=== PATIENT | male | born 1955 | race Caucasian/White ===

== ENCOUNTER → 2021-09-29 | Outpatient (CLI) | payer OTHER, SELFPAY ==
[2021-09-29 12:48] LABS: ALB/GLOB Ratio 0.7 RATIO (0.9-2.4); AST(SGOT) 16 U/L (15-37); Alanine Aminotransfer ALT/SGPT 25 U/L (16-61); Albumin, Serum 3.5 g/dL (3.2-5.0); Alkaline Phosphatase 90 U/L (45-117); Anion Gap 6 (5-15); BUN 18 mg/dL (7-18); BUN/Creat Ratio 16.7 RATIO (10-20); Calcium,Total 9.1 mg/dL (8.5-10.1); Chloride 104 mmol/L (98-107); Cholesterol 131 mg/dL (200); Creatinine, Serum 1.08 mg/dL (0.70-1.30); EST Glomerular Filtration Rate 73 mL/min (>60); Est Glom Filt Rate - Afr Amer 89 mL/min (>60); Glucose 100 mg/dL (74-106); High Density Lipoprotein 37 mg/dL; Potassium 4.3 mmol/L (3.5-5.1); Protein, Total 8.5 g/dL (6.4-8.2); Sodium Level 135 mmol/L (136-145); Triglycerides 78 mg/dL; Very Low Density Lipoprotein 16 mg/dL (5-40)
[2021-09-29 12:49] LABS: Hemoglobin A1c 5.8 % (3.8-5.6)
[2021-09-30 17:17] LABS: PSA, Free 0.72 ng/mL; PSA, Free % 14.7 % (.); PSA, Total Ultrasensitive 4.9 ng/mL (0.0-4.0)
== END | disposition home or self-care (01) ==
LOC: LAB 10:55
PROVIDERS: PCP Family Medicine; Referring Provider Nurse Practitioner Family; Visit Provider Nurse Practitioner Family
DX: R97.20 Elevated prostate specific antigen [PSA] (principal); Z13.220 Encounter for screening for lipoid disorders; Z13.1 Encounter for screening for diabetes mellitus; R51.9 Headache, unspecified
CPT/HCPCS: 36415; 80053; 80061; 83036; 84153; 84154

== ENCOUNTER 2023-12-08 17:21 | Observation (INO) | payer MEDICARE, OTHER, SELFPAY ==
--- NOTE | 2023-12-07 | CALC_PTH ---
PATHOLOGY RESULTS PATIENT: BONNIE JOHNSON LOC: MS3 U#:[id number] AGE/SX: 68/M ROOM: [facility] RE12/08/[address]: Dr. Dimitri Sevilla MD : 1955 BED: 1 DIS: 12/09/2023 SPEC #: [id number] RECD: 12/10/23 08:19 STATUS: PARKER RICHARDS #: [id number] FELICIANO: 12/07/23 00:[address]: Dimitri Sevilla DEPT: SURGICAL PATHOLOGY RECD BY: Mookie Whitmore ENTERED: 12/10/23 08:20 SP TYPE: Calculi OTHR DR: MD Dr. Karyn Elaine, Tissues: CALCULI Procedures: Surgery Specimen Level I HEADER OPERATION: Ureteroscopy, laser and stent placement PRE-OP DIAGNOSIS: Intractable pain, hydronephrosis, urolithiasis TISSUE SUBMITTED: Stone for urinary calculi analysis GROSS DIAGNOSIS A fragment of stone, clinically urinary calculus (gross only). 12/11/2023 COMMENT The calculus is submitted in its entirety for chemical stone analysis. The results from this study will be reported separately. GROSS DESCRIPTION Received without fixative labeled with the patient's name and designated urinary calculi. The specimen consists of a fragment of marcum stone measuring 0.3 x 0.2 x 0.1 cm. The entire specimen is submitted for stone analysis. 12/10/2023 CPT: 94276
[2023-12-08 17:23] VITALS: BP 175/103; PULSE 98; RESP 18; TEMP 36; O2SAT 97; BMI 31.6
--- NOTE | 2023-12-08 17:45 | CT_ITS ---
STUDY: CT ABDOMEN AND PELVIS WITHOUT CONTRAST REASON FOR EXAM: Male, 68 years old. Pain RADIATION DOSAGE (If Supplied By Facility): CTDIvol = ( 12.56 ) mGy, DLP = ( 674.69 ) mGycm TECHNIQUE: Transaxial images were obtained from the dome of the diaphragm to the symphysis pubis without oral contrast, and without intravenous contrast. Sagittal and coronal images were reconstructed. Individualized dose optimization techniques were used for this CT. The protocol utilizes one or more of the following dose reduction techniques: automated exposure control, adjustment of mA and/or kV according to patient size,and/or use of iterative reconstruction technique. CT abdomen and pelvis September 01, 2008 FINDINGS: Bibasilar subsegmental atelectasis. Cardiomegaly. Normal liver. Normal gallbladder and extrahepatic biliary system. Normal spleen. Normal pancreas. Normal bilateral adrenal glands. Moderate right hydronephrosis and hydroureter due to a distal ureterolith at the ureterovesicular junction measuring 20 mm longitudinally and 5 mm transverse dimensions. Multiple small nonobstructing nephroliths bilaterally measuring up to several millimeters. Normal visualized stomach. Normal small intestine. Colonic diverticulosis. Increased stool throughout the colon. The appendix is visualized and appears normal. Calcified plaque along the aorta and its branches. Normal inferior vena cava. Normal retroperitoneum. Normal urinary bladder. Normal abdominal wall. Normal osseous structures. CT/Abdomen/Pelvis without Cont IMPRESSION: Moderate right hydronephrosis due to a distal ureterolith as above. Multiple smaller bilateral nonobstructing nephroliths. Electronically Signed: Tristen Freire MD at 20:52 EDT ,
--- NOTE | 2023-12-08 17:46 | ED.VIS.GI ---
HPI HPI - GI History of Present Illness Chief Complaint: Abd Pain Detail of Chief Complaint: Abdominal pain Informant: patient Narrative Narrative: Patient presents to the emergency department with complaint of abdominal pain that started 4 days ago. Patient states that he had kidney stones on his right side blasted at [facility] 5 days ago. The following day he developed lower abdomen discomfort. Patient states at times he had some hematuria and passing some stone fragments. He denies fevers or chills or sweats. Today he vomited x 2. Currently rates his pain a 5 or 6 out of 10 diffusely across the lower abdomen. No prior history of diverticulitis. He denies any blood in his stool or black tarry stool. [facility] Medical History (Updated 12/08/23 @ 21:[address] Karyn Higgins, DO) Kidney stones Home Medications ?Medication ?Instructions ?Recorded ?Last Taken ?Type ondansetron HCl 8 mg tablet 8 mg PO Q8H PRN PRN nausea/vomiting 12/08/23 Unknown History oxycodone-acetaminophen 5 mg-325 1 tab PO BID PRN PRN pain 12/08/23 Unknown History mg tablet Allergy/AdvReac Type Severity Reaction Status Date / Time No Known Allergies Allergy Verified 12/08/23 17:56 Family History no significant family his Social History Smoking Status: Never smoker ROS ROS ED Review of Systems ROS Unobtainable: other Constitutional Constitutional ED: Reports lethargy; Denies chills, fever(s), sweats or weight loss Eyes Eyes: Denies blurry vision, change in vision or diplopia ENT ENT ED: Denies rhinorrhea or sore throat Cardiovascular Cardiovascular: Denies chest pain, orthopnea or racing heartbeat Respiratory/Chest Respiratory/Chest: Denies cough, dyspnea, dyspnea on exertion, orthopnea or sputum Gastrointestinal Gastrointestinal: Reports abdominal pain, nausea and vomiting; Denies diarrhea Genitourinary Genitourinary ED: Reports hematuria; Denies dysuria or urinary frequency Musculoskeletal Musculoskeletal: Denies arthralgias, back pain, myalgias or neck pain Integumentary Denies abscess, Abrasions or rash Neurologic Neurologic: Denies headache(s) or weakness Psychiatric Psychiatric: Denies anxiety, depression or suicidal thoughts Endocrine Endocrinology: Denies polydipsia, polyphagia or polyuria Hematologic/Lymphatic Hematologic/Lymphatic: Denies easy bleeding, easy bruising or lymphadenopathy Allergic/Immunologic Allergic/Immunologic ED: Denies mouth swelling, tongue swelling or urticaria EXAM Physical Exam Const Vital Signs: 12/08/23 17:23 12/08/23 19:21 Temperature 96.8 F L Temperature Source Temporal Pulse Rate 98 77 Respiratory Rate 18 18 Blood Pressure 175/103 H 157/82 H Blood Pressure Mean 127 107 Pulse Ox 97 95 Oxygen Delivery Method Room Air Room Air Positive well nourished and well developed General Appearance ED: well developed and NAD HEENT Reports TM's clear and moist mucous membranes normocephalic and atraumatic; Negative for trauma or tenderness Tympanic Membrane ED: Yes TM's clear Eyes PERRL and EOMs intact bilaterally General Eye ED: Negative for pale conjunctiva or scleral icterus Neck no lymphadenopathy, supple and no JVD General: Negative for tenderness Chest Wall inspection of chest normal and palpation of chest normal Chest: Negative for tenderness Resp normal respiratory effort and clear to auscultation bilaterally Effort and Inspection: Negative for respiratory distress or pain with movement Auscultation: Negative for rhonchi, wheezes or diminished lung sounds Cardio regular rate, regular rhythm, S1 normal heart sound, S2 normal heart sound and no murmurs Peripheral Pulses: pulses 2+ throughout GI normal to inspection, nondistended, normoactive bowel sounds, soft to palpation, non-distended and no masses GI Narrative: Patient with hyperactive bowel sounds. He is diffusely tender over the right lower quadrant as well as the suprapubic and left lower quadrant regions with guarding. There is no rebound or rigidity. No masses palpated. Back/Spine no CVA tenderness and no thoracic nor lumbar tenderness Extremity normal to inspection General Extremety ED: Negative for edema General Extremity: Negative for edema Neuro oriented x3, CN's II-XII intact bilaterally, no sensory deficits noted and gait normal Sensorium / Orientation: awake, alert, oriented to person, oriented to place and oriented to time Motor Exam: strength 5/5 throughout and strength abnormal Psych mental status grossly normal Skin no rashes or lesions noted and no wounds MDM MDM MDM Narrative Medical decision making narrative: Patient presents with history of kidney stones with recent lithotripsy done at [facility] by Dr. Montes. Patient having ongoing pain. IV line established and he was medicated morphine and Zofran. CBC with differential obtained showed a white count 16.7 with hemoglobin 12.9 and platelet count of 361. Chemistry is unremarkable. BUN was 28 and creatinine 2.13. Lactate normal at 1.3. Urinalysis showed 10-25 RBCs that was negative for nitrates and only 100 leukocyte esterase as well as +1 bacteria. Patient was given a gram of Rocephin IV. Urine sent for culture. CT scan of the abdomen pelvis obtained without contrast showed right urolithiasis and hydronephrosis with a 20 mm x 5 mm stone at the right UVJ. Discussed case with as patient is having ongoing pain. Patient will be admitted for possible stent placement tomorrow. Lab Data Attestation: I reviewed the patient's lab results. Labs: Laboratory Results - last 24 hr 12/08/23 12/08/23 18:03 19:02 WBC 16.7 H RBC 4.50 L Hgb 12.9 L Hct 39.7 L MCV 88.2 MCH 28.7 MCHC 32.5 RDW Std Deviation 39.8 RDW Coeff of Job 12.3 Plt Count 361 MPV 9.6 Immature Gran % (Auto) 0.500 Neut % (Auto) 78.6 H Lymph % (Auto) 11.2 L [place] % (Auto) 8.5 Eos % (Auto) 1.0 Baso % (Auto) 0.2 Absolute Neuts (auto) 13.1 H Absolute Lymphs (auto) 1.87 Nucleated RBC % 0 Sodium 132 L Potassium 4.1 Chloride 99 Carbon Dioxide 26.0 Anion Gap 7 BUN 28 H Creatinine 2.13 H Estim Creat Clear Calc 38.01 Est GFR (MDRD) Af Amer 40 L Est GFR (MDRD) Non-Af 33 L BUN/Creatinine Ratio 13.1 Glucose 123 H Lactic Acid 1.3 Calcium 10.0 Urine Color Yellow Urine Clarity Clear Urine pH 6.0 Ur Specific [place] 1.010 Urine Protein 30 H Urine Glucose (UA) Normal Urine Ketones Negative Urine Occult Blood 250 H Urine Nitrite Negative Urine Bilirubin Negative Urine Urobilinogen Normal Ur Leukocyte Esterase 100 H Urine RBC 10-25 SEEN Urine WBC 5-10 SEEN Ur Squamous Epith Cells 0-5 SEEN Urine Bacteria 1+ Urine Mucus 0 SEEN Radiography Diagnostic Testing: Clinical Impression(s) from Imaging Studies Abdomen/Pelvis CT 12/08/23 17:45 IMPRESSION: Moderate right hydronephrosis due to a distal ureterolith as above. Multiple smaller bilateral nonobstructing nephroliths. Electronically Signed: Tristen Freire MD at 20:52 EDT , Discharge Plan Dx/Rx/DC Orders Clinical Impression: Urolithiasis, Hydronephrosis, Intractable pain Disposition Disposition: Acute Care Hospital [facility]
[2023-12-08] MEDS: 0.9% Normal Saline (1000mL) 1,000 ML 999 ML IV (18:01)
[2023-12-08] MEDS: Ondansetron 4 MG/2 ML Vial IV (18:02)
[2023-12-08] MEDS: Morphine 4 MG/ML Syringe IV ×2 (18:02→20:38)
[2023-12-08 18:13] LABS: Absolute Lymphocyte Count 1.87 X10^3/uL (0.83-4.51); Absolute Neutrophil Count 13.1 X10^3/uL (2.0-7.7); Basophil# 0.04 X10^3/uL; Basophil% 0.2 % (0-1); Eosinophil# 0.16 X10^3/uL; Hematocrit 39.7 % (40-54); Hemoglobin 12.9 g/dL (13.0-16.5); Lymphocyte # 1.87 X10^3/ul (0.83-4.51); Lymphocyte % 11.2 % (19-41); Mean Corp Hgb Conc 32.5 g/dL (32-36); Mean Corpuscular Hgb 28.7 pg (27.0-32.0); Mean Corpuscular Volume 88.2 fL (80-94); Mean Platelet Vol. 9.6 fl (6.2-12.0); Monocyte# 1.41 X10^3/uL; Monocyte% 8.5 % (0-10); NRBC Flagged by Analyzer 0 % (0-5); Neutrophil # 13.12 X10^3/uL (2.7-7.7); Neutrophil % 78.6 % (47-70); Platelet Count 361 K/mm3 (150-450); RBC Distribution Width CV 12.3 % (11.6-14.6); RBC Distribution Width SD 39.8 fl (35.1-43.9); White Blood Count 16.7 K/mm3 (4.4-11.0)
--- OUTSIDE RECORDS SUMMARY | 2023-12-08 18:26 | XMS RPT_ITS | CCD ---
Author Organization [facility] Care Team Providers Care Md Urologist Name Role Phone Subha Camacho Unavailable Deny Qiu Unavailable Yudith Vaz Unavailable Unavailable Glassine Machine Tender, System Unavailable Unavailable Rosi Smith Unavailable Unavailable Marycarmen Robles Unavailable Unavailable Alma Garza Unavailable Unavailable Unavailable Lilian Chowdhury MD Primary Care Provider Lilian Chowdhury MD Primary Care Provider Lilian Chowdhury MD Primary Care Provider Lilian Chowdhury MD Primary Care Provider Lilian Chowdhury MD Primary Care Provider LILIAN CHOWDHURY Primary Care Unavailable PATRICE EDWARDS JR Referring Unavaila ble VEFERDINAND, JASMINA Referring Unavailable LILIAN CHOWDHURY Primary Care Unavailable BEL RENEE Attending Unavailable VEMIANETZ, JASMINA Referring Unavailable LILIAN CHOWDHURY Primary Care Unavailable ALBINO, JASMINA Referring Unavailable LILIAN CHOWDHURY Primary Care Unavailable BEL RENEE Attending Unavailable LILIAN CHOWDHURY Primary Care Unavailable IDA CARLTON Attending Unavailable JUSTINE LEARY Referring Unavailable LILIAN CHOWDHURY Primary Care Unavailable PATRICE EDWARDS JR Referring Unavaila ble LILIAN CHOWDHURY Primary Care Unavailable PATRICE EDWARDS JR Referring Unavaila ble LILIAN CHOWDHURY Primary Care Unavailable JUSTINE LEARY Referring Unavailable JUSTINE LEARY Referring Unavailable LILIAN CHOWDHURY Primary Care Unavailable LILIAN CHOWDHURY Primary Care Unavailable JUSTINE LEARY Attending Unavailable JUSTINE LEARY Referring Unavailable LILIAN CHOWDHURY Primary Care Unavailable LILIAN CHOWDHURY Primary Care Unavailable JUSTINE LEARY Attending Unavailable JUSTINE LEARY Referring Unavailable JASMINA REYES Attending Unavailable LILIAN CHOWDHURY Primary Care Unavailable YUMIKO RAI, PATRICE GENE Admitting Unavaila ble YUMIKO RAI, PATRICE GENE Attending Unavaila ble YUMIKO RAI, PATRICE GENE Referring Unavaila LILIAN Carlson Primary Care Unavailable YUMIKO RAI, PATRICE GENE Attending Unavaila ble JUSTINE LEARY Referring Unavailable LILIAN CHOWDHURY Primary Care Unavailable YUMIKO JR, PATRICE GENE Attending Unavaila ble YUMIKO RAI, PATRICE GENE Referring Unavaila LILIAN Carlson Primary Care Unavailable Allergies Allergy Classification Reported Allergen(s) Allergy Type Date of Onset Reaction(s) Facility (1 source) Erythromycins; Translations: [Erythromycins] Allergy to substance (finding) [facility] Work Phone: Comment on above: Vomiting (20 sources) Erythromycin; Translations: [ERYTHROMYCIN BASE] Drug Allergy 9 GI Upset [facility] Work Phone: (2 sources) tamsulosin; Translations: [TAMSULOSIN] Drug Allergy 4 Intolerance [facility] Other [place] Repository Medications Current Medications Medication Drug Class(es) Dates Sig (Normalized) Sig (Original) acetaminophen 300 mg / codeine phosphate 30 mg oral tablet (2 sources) Opioid Agonist Start: 09-22-2021 End: 09-27-2021 take 1 tablet by mouth every four hours as needed for headache and headache acetaminophen-codein e (TYLENOL-CODEINE #3) 300-30 mg per tablet Indications: Nonintractable headache, unspecified chronicity pattern, unspecified headache type Take 1 tablet by mouth every 4 hours as needed for pain for up to 5 days. 30 tablet 0 09/22/2021 09/27/2021 Active Start: 06-11-2013 take 1 tablet by kat th every six hours ACETAMINOPHEN-CODEINE #3, 300-30MG (Oral Tablet) 1 (one) Tablet q q 6 hr for 0 days Quantity: 30 {Tablet} Refills: 0 Ordered: 11-Jun-2013 Subha Camacho DO, DO, Kathleen Start : 11-Jun-2013 Active Comments: thirty Comment on above: thirty Take 1 tablet by kat th every 4 hours as needed for pain for up to 5 days. aspirin 81 mg delayed release oral tablet (1 source) Platelet Aggregation Inhibitor, Nonsteroidal Anti-inflammatory Drug take 1 tablet by mouth once daily aspirin, enteric coated (ASPIRIN, ENTERIC COATED) 81 mg EC tablet Take 81 mg by mouth once daily. Active iv contrast (will be provided with radiology test) (1 source) Start: 10-25-19 End: 10-26-19 iv contrast (will be provided with radiology test) MRI Prostate Inject, intravenously, once for 1 dose. No IV access, insert saline lock prior to the beginning of sedation, infusion, injection of imaging exam. Discontinue saline lock post exam. If Pt. has a central line or IVAD, may access for administration according to line specific nursing protocol. Once exam is complete flush line and de-access according to line specific nursing protocol in the MR contrast administration guidelines link. 1 Each 10/25/2023 10/26/2023 Active ondansetron 8 mg oral tablet (2 sources) Serotonin-3 Receptor Antagonist Start: 11-13-19 take 1 tablet by mouth every eight hours as needed ondansetron (ZOFRAN) 8 mg tablet Take 1 tablet by mouth every 8 hours as needed for nausea/vomiting. 20 tablet 1 11/13/2023 Active tamsulosin hydrochloride 0.4 mg oral capsule (7 sources) alpha-Adrenergic Dani Start: 10-25-19 tamsulosin (FLOMAX) 0.4 mg Take 1 capsule by mouth once daily. 30 minutes after the same meal each day. 14 capsule 10/25/2023 Active Completed/Discontinued Medications Medication Drug Class(es) Dates Sig (Normalized) Sig (Original) amoxicillin 875 mg / clavulanate 125 mg oral tablet (1 source) Penicillin-class Antibacterial Start: 04-05-2011 End: 04-27-2011 take 1 tablet by mouth twice daily AUGMENTIN, 875-125MG (Oral Tablet) 1 Tablet bid for 0 days Quantity: 28 {Tablet} Refills: 0 Ordered: 27-Apr-2011 Mast Shirley EDMONDSON Start : 05-Apr-2011 End : 27-Apr-2011 Discontinued bifidobacterium infantis 4 mg oral capsule (1 source) Start: 08-03-2010 End: 04-05-2011 take 1 capsule by mouth once daily ALIGN (Oral Capsule) 1 Capsule daily for 0 days Quantity: 30 {Capsule} Refills: 0 Ordered: 05-Apr-2011 Sandra Watson Start : 03-Aug-2010 End : 05-Apr-2011 Inactive cyclobenzaprine hydrochloride 10 mg oral tablet (1 source) Muscle Relaxant Start: 04-20-2021 End: 09-22-2021 take 1 tablet by mouth three times daily as needed for muscle spasms cyclobenzaprine (FLEXERIL) 10 mg tablet Indications: Acute midline low back pain without sciatica Take 1 tablet by mouth three times daily as needed for muscle spasm. 30 tablet 0 04/20/2021 09/22/2021 Discontinued (Course of therapy completed) Comment on above: Take 1 tablet by kat th three times daily as needed for muscle spasm. diclofenac sodium 75 mg delayed release oral tablet (7 sources) Nonsteroidal Anti-inflammatory Drug Start: 01-15-2023 End: 09-12-2023 take 1 tablet by mouth twice daily for pain diclofenac, EC, (VOLTAREN) 75 mg EC tablet Indications: Bursitis of right shoulder Take 1 tablet by mouth two times a day. FOR PAIN 60 tablet 3 01/15/2023 09/12/2023 Discontinued (Course of therapy completed) Comment on above: Take 1 tablet by kat th two times a day. FOR PAIN levoFLOXacin 500 mg oral tablet (1 source) Quinolone Antimicrobial Start: 01-31-2010 End: 05-30-2010 take 1 tablet by mouth once daily LEVAQUIN, 500MG (Oral Tablet) 1 Tablet qd for 0 days Quantity: 10 {Tablet} Refills: 0 Ordered: 30-May-2010 Yudith Vaz RN Start : 31-Jan-2010 End : 30-May-2010 Inactive lisinopril 10 mg oral tablet (2 sources) Angiotensin Converting Enzyme Inhibitor Start: 10-27-2020 End: 09-22-2021 take 1 tablet by mouth once daily lisinopril (ZESTRIL, PRINIVIL) 10 mg tablet Indications: Essential hypertension Take 1 tablet by mouth once daily. 90 tablet 3 10/27/2020 09/22/2021 Discontinued Start: 03-11-2015 take 1 tablet by kat th once daily LISINOPRIL, 10MG (Oral Tablet) 1 Tablet QD for 0 days Quantity: 90 {Tablet} Refills: 1 Ordered: 11-Mar-2015 Subha Camacho DO, DO, Kathleen Start : 11-Mar-2015 Active Comments: Mail order. Comment on above: Mail order. Take 1 tablet by kat th once daily. meloxicam 15 mg oral tablet (2 sources) Nonsteroidal Anti-inflammatory Drug Start: 3 End: 3 take 1 tablet by mouth once daily at mealtime MELOXICAM, 15MG (Oral Tablet) 1 Tablet qd with food for 0 days Quantity: 90 {Tablet} Refills: 3 Ordered: 08-Jul-2012 Yudith Vaz RN Start : 27-May-2012 End : 08-Jul-2012 Inactive Start: 08-03-2010 End: 10-02-2010 take 1 tablet by mouth once daily MELOXICAM, 7.5MG (Oral Tablet) 1 Tablet daily for 60 days Refills: 0 Ordered: 03-Oct-2010 Greg KAPLANAlma E Start : 03-Aug-2010 End : 02-Oct-2010 Inactive metaxalone 800 mg oral tablet (1 source) Start: 09-06-2011 End: 07-08-2012 take 1 tablet by mouth three times daily as needed METAXALONE, 800MG (Oral Tablet) 1 Tablet tid prn for 0 days Quantity: 30 {Tablet} Refills: 0 Ordered: 08-Jul-2012 Yudith Vaz RN Start : 06-Sep-2011 End : 08-Jul-2012 Inactive Comments: thirty Comment on above: thirty metroNIDAZOLE 500 mg oral tablet (2 sources) Nitroimidazole Antimicrobial Start: 09-16-2010 End: 09-16-2010 take 1 tablet by mouth every eight hours METRONIDAZOLE, 500MG (Oral Tablet) 1 Tablet q8hrs for 14 days Quantity: 42 {Tablet} Refills: 0 Ordered: 16-Sep-2010 Subha Camacho DO, DO, Kathleen Start : 16-Sep-2010 End : 16-Sep-2010 Discontinued Start: 08-26-2010 End: 09-05-2010 take 1 tablet by mouth once daily FLAGYL, 500MG (Oral Tablet) 1 Tablet tid for 10 days Quantity: 30 {Tablet} Refills: 0 Ordered: 26-Aug-2010 Mirella Roberson RN Start : 26-Aug-2010 End : 05-Sep-2010 Inactive Comments: Take 1 culturelle or align daily with this med. NO ETOH. Comment on above: Take 1 culturelle or align daily with this med. NO ETOH. mometasone furoate 0.05 mg/actuat metered dose nasal spray (1 source) Corticosteroid Start: 06-12-19 14 NASONEX, 50MCG/ACT (Nasal Suspension) 2 (two) Suspension qd for 0 days Quantity: 1 {Bottle} Refills: 3 Ordered: 11-Jun-2013 Subha Camacho DO, DO, Kathleen Start : 11-Jun-2013 Active Comments: Mail order. Comment on above: Mail order. naproxen sodium 220 mg oral tablet (1 source) Nonsteroidal Anti-inflammatory Drug End: 09-23-19 22 take 2 tablets by mouth once daily at bedtime naproxen sodium (ALEVE) 220 mg tablet Take 440 mg by mouth daily at bedtime. 0 09/22/2021 Discontinued (Course of therapy completed) Comment on above: Take 440 mg by mouth daily at bedtime. predniSONE 10 mg oral tablet (7 sources) Start: 01-16-20 End: 09-12-19 24 predniSONE (DELTASONE) 10 mg tablet Indications: Bursitis of right shoulder 6 tabs po day 1, then 5 tabs day 2, 4 tabs day 3, 3 tabs day 4, 2 tabs day 5, 1 tab day 6. 21 tablet 01/15/2023 09/12/2023 Discontinued (Course of therapy completed) Comment on above: 6 tabs po day 1, the n 5 tabs day 2, 4 tabs day 3, 3 tabs day 4, 2 tabs day 5, 1 tab day 6. simvastatin 20 mg oral tablet (1 source) HMG-CoA Reductase Inhibitor Start: 07-04-19 15 take 1 tablet by mouth once daily SIMVASTATIN, 20MG (Oral Tablet) 1 Tablet qd for 0 days Quantity: 90 {Tablet} Refills: 3 Ordered: 03-Jul-2014 Subha Camacho DO, DO, Kathleen Start : 03-Jul-2014 Active Comments: Mail order. Comment on above: Mail order. vancomycin 125 mg oral capsule (1 source) Glycopeptide Antibacterial Start: 09-17-19 11 End: 10-04-19 11 take 1 capsule by mouth four times daily VANCOCIN HCL, 125MG (Oral Capsule) 1 Capsule qid for 0 days Quantity: 40 {Capsule} Refills: 0 Ordered: 03-Oct-2010 Yudith Vaz RN Start : 16-Sep-2010 End : 03-Oct-2010 Inactive Problems Active Problems Problem Classification Problem Date Documented Da te Episodic/Chronic Abdominal pain (5 sources) Flank pain; Translations: [Unspecified abdominal pain] Onset: 10-25-2023 10-25-2023 Episodic Calculus of urinary tract (10 sources) Kidney stone; Translations: [Calculus of kidney] Onset: 10-25-2023 10-25-2023 Episodic Chronic obstructive pulmonary disease and bronchiectasis (2 sources) Chronic obstructive pulmonary disease and bronchiectasis Contraceptive and procreative management (1 source) H/O: vasectomy; Translations: [Vasectomy] 07-18-2013 Episodic Diabetes mellitus without complication (13 sources) Abnormal glucose tolerance test; Translations: [Abnormal glucose tolerance test] 07-18-2013 Episodic Disorders of lipid metabolism (20 sources) Hyperlipidemia; Translations: [Pure hypercholesterolemia ] Onset: 05-31-2015 11-24-2014 Chronic Essential hypertension (20 sources) Benign hypertension; Translations: [Essential hypertension] 11-24-2014 Chronic Fracture of upper limb (1 source) Fracture of phalanx of finger; Translations: [Fracture Of Finger] 07-18-2013 Episodic Genitourinary symptoms and ill-defined conditions (3 sources) Urine looks dark; Translations: [Other abnormal findings in urine] Onset: 10-15-2023 10-02-2023 Episodic Headache; including migraine (1 source) Migraine with aura; Translations: [Migraine with aura and without status migrainosus, not intractable] 01-05-2015 Chronic Headache; including migraine (6 sources) Headache; including migraine Immunizations and screening for infectious disease (2 sources) Need for prophylactic vaccination and inoculation against influenza; Translations: [Patient encounter status] Episodic Intestinal infection (1 source) Clostridial gastroenteritis; Translations: [Enterocolitis due to Clostridium difficile] 04-01-2015 Episodic Joint disorders and dislocations; trauma-related (20 sources) Disorder of articular cartilage of ankle; Translations: [Other articular cartilage disorders, unspecified ankle] Onset: 07-05-2010 07-05-2010 Chronic Neoplasms of unspecified nature or uncertain behavior (2 sources) Neoplastic disease; Translations: [Neoplasm of uncertain behavior of skin] 07-18-2013 Episodic Other connective tissue disease (5 sources) Hand pain; Translations: [Pain of hand, unspecified laterality] Resolved: 01-08-2012 01-05-2015 Episodic Other connective tissue disease (1 source) Bursitis of right shoulder; Translations: [Bursitis of right shoulder] 01-15-2023 Episodic Other ear and sense organ disorders (1 source) Hearing loss; Translations: [Unspecified hearing loss, unspecified ear] 01-05-2015 Chronic Other ear and sense organ disorders (20 sources) Conductive hearing loss, bilateral; Translations: [Conductive hearing loss, bilateral] Onset: 09-23-2020 09-23-2020 Chronic Other gastrointestinal disorders (6 sources) Diarrhea; Translations: [Diarrhea] Resolved: 10-19-2010 07-08-2012 Episodic Comment on above: scope set up for nex t week - with jabourHas giardia and cdiffHad antibiotic in June Other inflammatory condition of skin (1 source) Pruritus of skin; Translations: [Pruritic disorder] 03-16-2015 Episodic Comment on above: drug side effect fro m flagyl? liver?kidney ? thyriod? Other injuries and conditions due to external causes (3 sources) H/O: fracture; Translations: [Fracture Of Clavicle] 07-18-2013 Episodic Other injuries and conditions due to external causes (1 source) H/O: head injury; Translations: [Concussion] 07-18-2013 Episodic Other lower respiratory disease (1 source) H/O: pneumothorax; Translations: [Pneumothorax] 07-18-2013 Episodic Other nervous system disorders (1 source) Other chronic pain; Translations: [Chronic neck pain] Onset: 01-15-2023 Chronic Other nervous system disorders (1 source) Other acute postprocedural pain; Translations: [Post-op pain] Onset: 12-03-2023 Episodic Other non-traumatic joint disorders (2 sources) Joint pain Episodic Other non-traumatic joint disorders (3 sources) Pain in right knee; Translations: [Pain in joint, lower leg] Onset: 09-12-2023 09-12-2023 Episodic Other non-traumatic joint disorders (3 sources) Hip pain; Translations: [Pain in right hip] 09-12-2023 Episodic Other non-traumatic joint disorders (1 source) Pain in right hip; Translations: [Bilateral hip pain] Onset: 11-01-2023 Episodic Other non-traumatic joint disorders (1 source) Pain in left hip; Translations: [Bilateral hip pain] Onset: 11-01-2023 Episodic Other non-traumatic joint disorders (1 source) Pain in left knee; Translations: [Pain in both knees, unspecified chronicity] Onset: 09-12-2023 Episodic Other screening for suspected conditions (not mental disorders or infectious disease) (12 sources) Patient encounter status; Translations: [Encounter for screening for malignant neoplasm of colon] Onset: 10-02-2023 Episodic Other skin disorders (2 sources) Actinic keratosis; Translations: [Actinic keratosis] 07-18-2013 Episodic Comment on above: pt wants removed Other upper respiratory infections (2 sources) Acute sinusitis; Translations: [Acute sinusitis] 07-18-2013 Episodic Residual codes; unclassified (1 source) FH: Diabetes mellitus; Translations: [Family history of diabetes mellitus] 07-18-2013 Episodic Residual codes; unclassified (1 source) Family history of diabetes mellitus Episodic Residual codes; unclassified (1 source) Needs influenza immunization; Translations: [Need for prophylactic vaccination and inoculation against influenza] 11-24-2014 Episodic Residual codes; unclassified (2 sources) History of clinical finding in subject; Translations: [Personal history of other specified conditions] 10-02-2023 Episodic Residual codes; unclassified (1 source) Personal history of other specified conditions; Translations: [History of flank pain] Onset: 10-15-2023 Episodic Skin and subcutaneous tissue infections (2 sources) Pilonidal cyst; Translations: [Pilonidal Cyst] 07-28-2013 Episodic Comment on above: Surgery Spondylosis; intervertebral disc disorders; other back problems (20 sources) Degeneration of cervical intervertebral disc; Translations: [Other cervical disc degeneration, unspecified cervical region] Onset: 08-09-2005 08-09-2005 Chronic Unclassified (20 sources) Unclassified (10 sources) Hypertension,benign( 401.1) Unclassified (3 sources) Muscle spasm (728.85) Unclassified (2 sources) Eustachian tube dysfunction (381.81) Unclassified (2 sources) Otalgia, unspecified (388.70) Unclassified (3 sources) Cerumen impaction (380.4) Unclassified (2 sources) Abnormal Lung Sounds/Rales (786.7) Unclassified (5 sources) SCREENING FOR CANCER OF THE PROSTATE (V76.44) Unclassified (3 sources) IRRITATED MOLE, BENIGN NEOPLASM OF SKIN (216.5) Viral infection (1 source) Verruca vulgaris; Translations: [Viral warts, unspecified type] 01-08-2015 Episodic Past or Other Problems Problem Classification Problem Date Documented Date Episodic/Chronic Chronic obstructive pulmonary disease and bronchiectasis (1 source) Bronchitis; Translations: [Bronchitis] Resolved: 01-08-2012 01-04-2015 Episodic Coronary atherosclerosis and other heart disease (2 sources) Coronary atherosclerosis and other heart disease Headache; including migraine (20 sources) Tension-type headache; Translations: [Headache] Onset: 05-31-2015 Resolved: 01-08-2012 01-05-2015 Episodic Comment on above: only thing that work s -- rx usually last 1-2 yrs Other and unspecified benign neoplasm (1 source) Benign neoplasm of skin; Translations: [Benign neoplasm of skin] Resolved: 01-08-2012 01-28-2015 Episodic Other circulatory disease (1 source) Abnormal chest sounds; Translations: [Abnormal lung sounds] Resolved: 01-08-2012 01-05-2015 Episodic Other connective tissue disease (1 source) Spasm; Translations: [Muscle spasm] Resolved: 09-06-2011 07-08-2012 Episodic Other connective tissue disease (20 sources) Left achilles tendonitis; Translations: [Achilles tendinitis, left leg] Onset: 02-06-2011 02-06-2011 Episodic Other ear and sense organ disorders (1 source) Impacted cerumen; Translations: [Cerumen impaction] Resolved: 01-08-2012 11-24-2014 Episodic Other ear and sense organ disorders (1 source) Otalgia; Translations: [Otalgia, unspecified ear] Resolved: 01-08-2012 01-05-2015 Episodic Other nervous system disorders (20 sources) Numbness of hand; Translations: [Anesthesia of skin] Onset: 04-04-2023 01-15-2023 Episodic Other nervous system disorders (1 source) Anesthesia of skin; Translations: [Numbness of hand] Onset: 04-04-2023 Episodic Other non-traumatic joint disorders (20 sources) Pain in right shoulder; Translations: [Pain in joint, shoulder region] Onset: 01-15-2023 11-20-2022 Episodic Otitis media and related conditions (1 source) Dysfunction of eustachian tube; Translations: [Eustachian tube dysfunction] Resolved: 01-08-2012 11-24-2014 Episodic Pneumonia (except that caused by tuberculosis or sexually transmitted disease) (1 source) Infective pneumonia; Translations: [Pneumonia, organism unspecified] Resolved: 06-09-2009 01-05-2015 Episodic Spondylosis; intervertebral disc disorders; other back problems (20 sources) Backache; Translations: [Chronic neck pain] Onset: 01-15-2023 11-25-2014 Episodic Unclassified (4 sources) Lesion-Unknown behavior (238.2) Unclassified (1 source) Warts (078.10) Unclassified (1 source) Screening status; Translations: [Screening for prostate cancer] 11-24-2014 Unclassified (6 sources) Unspecified Diagnosis 07-18-2013 Unclassified (1 source) Precancerous lesion Unclassified (1 source) ENTERITIS, CLOSTRIDIUM DIFFICILE (008.45) Unclassified (1 source) PRURITIC DISORDER NOS (698.9) Unclassified (1 source) Pain in joint; Translations: [Joint pain] Resolved: 09-06-2011 07-08-2012 Results Test Name Value Interpretation Reference Range Facility ANES POSTPROC EVALon 024 ANES POSTPROC EVAL HNO ID: [id number] Author: TORSTEN MELGAR MD Service: Anesthesiology Author Type: Physician Type: Anesthesia Postprocedure Evaluation Filed: 12/03/2023 11:09 Note Text: POST ANESTHESIA EVALUATION NOTE : 1955 Procedure Summary Date: 12/03/23 Room / Location: [facility] / [facility] Anesthesia Start: 1018 Anesthesia Stop: 1107 Procedure: EXTRACORPOREAL SHOCKWAVE LITHOTRIPSY UNILATERAL (Right: Kidney) Diagnosis: Calculus, renal (Calculus, renal [N20.0]) Surgeons: Patrice Edwards Jr., MD Responsible Provider: Torsten Melgar MD Anesthesia Type: general ASA Status: 3 Anesthesia Type: general Airway Type: LMA Last Vitals Vitals Value Taken Time BP 151/91 12/03/23 1106 Temp 12/03/23 1109 Pulse 85 12/03/23 1108 Resp 21 12/03/23 1108 SpO2 100 % 12/03/23 1108 Vitals shown include unfiled device data. Post Anesthesia Patient Status Patient Evaluation: PACU. PACU/ICU Patient Condition: stable. Anticipated Disposition: phase 2 then home. Neurological Status: aware and responsive. Pulmonary Status: breathing comfortably on room air Airway Control: returned to baseline unsupported. Cardiovascular Status: stable. Pain Management: clinically adequate Postoperative Hydration: acceptable. Intraoperative Events: no significant anesthesia events Post Operative Nausea/Vomiting Status: no significant post operative nausea or vomiting Recommendation: continue current plan of care. Anesthesia Observations No Documentation SIGNATURE: Torsten Melgar MD PATIENT NAME: Bonnie Martinez DATE: December 03, 2023 TIME: 11:09 AM CSN: [id number] [facility] ANES PRE-OPon 12-03-2023 ANES PRE-OP HNO ID: [id number] Author: TORSTEN MELGAR MD Service: Anesthesiology Author Type: Physician Type: Anesthesia Preprocedure Evaluation Filed: 12/03/2023 09:51 Note Text: ANESTHESIOLOGY DAY OF SURGERY NOTE : 1955 Procedure Information Date/Time: 12/03/231125 Procedure: EXTRACORPOREAL SHOCKWAVE LITHOTRIPSY UNILATERAL (Right: Kidney) [place]: [place] [facility] Surgeons: Patrice Edwards Jr., MD Estimated body mass index is 30.93 kg/m? as calculated from the following: Height as of 11/08/23: 172.7 cm (5' 8 ). Weight as of this encounter: 92.3 kg (203 lb 6.4 oz). Most recent hematocrit and potassium results: Hematocrit 40.2 10/02/2023 Potassium 4.3 10/02/2023 Relevant Problems CARDIO (+) Essential hypertension NEURO-PSYCH (+) Nonintractable headache I - PHYSICAL EVALUATION AIRWAY Patient intubated: No. Tracheostomy tube not present Mallampati: II. TM distance: >3 FB. Neck ROM: full ROM without neurological symptoms. Mouth opening: adequate. Short neck: no. Thick neck: no DENTAL Dental findings: teeth intact. II - ANESTHESIA PLAN ASA Score: 3 Anesthetic Plan: general Airway type: LMA Beta Dani Monitoring Plan Monitoring plan: standard ASA. Post Procedure Analgesic Plan Postoperative analgesic plan: parenteral or oral opioids. Informed Consent Anesthetic risks, benefits, alternatives, personnel and consent discussed: yes. Patient / Responsible Libertarian agrees to proceed: yes Patient / Surrogate agrees to blood products: Yes Vitals Value Taken Time BP 142/87 12/03/23 0950 Pulse 79 12/03/23 0949 Resp 18 12/03/23 0949 Temp 36.8 ?C (98.2 ?F) 12/03/23 0949 SpO2 97 % 12/03/23 0951 Vitals shown include unfiled device data. Facility-Administered Medications as of 12/03/2023 Medication Dose Route Frequency ceFAZolin iv piggyback 2 g in D5W (iso-osmotic) 100 mL (ANCEF) 2 g INTRAVENOUS ONCE lidocaine (PF) 10 mg/mL (1 %) 1-2 mg injection (XYLOCAINE) 0.1-0.2 mL INTRADERMAL PRN NaCl 0.9% iv flush bag 20 mL INTRAVENOUS PRN acetaminophen 975 mg tab(s) (TYLENOL) 975 mg ORAL Pre-Op Once celecoxib 400 mg cap(s) (CeleBREX) 400 mg ORAL Pre-Op Once gabapentin 300 mg cap(s) (NEURONTIN) 300 mg ORAL Pre-Op Once ceFAZolin iv piggyback 2 g in D5W (iso-osmotic) 100 mL (ANCEF) 2 g INTRAVENOUS ONCE Outpatient Medications as of 12/03/2023 Medication Sig aspirin, enteric coated (ASPIRIN, ENTERIC COATED) 81 mg EC tablet Take 81 mg by mouth once daily. ondansetron (ZOFRAN) 8 mg tablet Take 1 tablet by mouth every 8 hours as needed for nausea/vomiting. I have interviewed and examined the patient. I have reviewed the medical record and/or the pre-anesthesia evaluation, pertinent labs, and test results. This contains updated information obtained within 48 hours of Surgery/Procedure. SIGNATURE: Torsten Melgar MD PATIENT NAME: Bonnie Martinez DATE: December 03, 2023 TIME: 9:51 AM CSN: [id number] [facility] ----- JUANBONNIE ([id number]) 1955 M Date Time Provider Department 12/03/23 PATRICE EDWARDS JR During your visit today, we recorded the following information about you: Patrice Edwards Jr., MD 12/03/2023 10:18 AM Signed [facility] or 12/03/23 Fu with me 4 weeks Kub prior ordered Sue Griffin 12/03/2023 2:02 PM Signed Spoke to patient Patient is scheduled January 09, 2024 at 2pm, [facility] location, [place] prior Patient agrees and understands Thank you Sue Allergies As of Date: 12/03/2023 Noted Allergy Reaction ERYTHROMYCIN BASE 09/21/2008 8 - GI Upset FLOMAX (TAMSULOSIN) 11/29/2023 5 - Intolerance Comments: Bad diarrhea Date Reviewed: 12/03/2023 Reviewed by: Kervin Asif, RN - Fully Assessed Reason for Visit: Appointment [186] Primary Visit Diagnosis:Kidney stone [N20.0] Order(s):XR ABDOMEN 1V SUPINE [0075791] Order #: [id number] FUTURE Prescriptions as of 12/03/2023 - oxyCODONE-acetaminophen (PERCOCET) 5-325 mg tablet Take 1 tablet by mouth every 8 hours as needed for pain for up to 3 days. - aspirin, enteric coated (ASPIRIN, ENTERIC COATED) 81 mg EC tablet Take 81 mg by mouth once daily. - ondansetron (ZOFRAN) 8 mg tablet Take 1 tablet by mouth every 8 hours as needed for nausea/vomiting. 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 HISTORY PHYSICALon HISTORY PHYSICAL HNO ID: [id number] Author: PATRICE EDWARDS JR, MD Service: Urology Author Type: Resident Type: H&P Filed: 12/03/2023 10:07 Note Text: ----- Attestation signed by Patrice Edwards Jr., MD at 12/03/2023 10:07 AM I saw and evaluated the patient. Discussed with the resident and agree with resident's findings and plan as documented in the resident's note. Patrice Edwards Jr, MD ----- Urology HANDP HISTORY OF PRESENT ILLNESS: The patient is a 67 year old male with past medical history nephrolithiasis. After discussions with Dr. Edwards, they elect for surgical management. Here today for ESWL. 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 PMH - PAST MEDICAL HISTORY OF DDD, PMH - PAST MEDICAL HISTORY OF 08/2008 fracture clavicel, ribs and right ankle Unspecified essential hypertension PAST SURGICAL HISTORY: PAST SURGICAL HISTORY Procedure Laterality Date PAST SURGICAL HISTORY OF pilondal cyst PAST SURGICAL HISTORY OF right 4th and 5th injury-[facility] PAST SURGICAL HISTORY OF Right 1985 right 4th and 5th fingers repaired following injury ALLERGIES: ALLERGIES Allergen Reactions Erythromycin Base GI Upset Flomax [Tamsulosin] Intolerance Bad diarrhea HOME MEDICATIONS: aspirin, enteric coated (ASPIRIN, ENTERIC COATED) 81 mg EC tablet, Take 81 mg by mouth once daily., Disp: , Rfl: ondansetron (ZOFRAN) 8 mg tablet, Take 1 tablet by mouth every 8 hours as needed for nausea/vomiting., Disp: 20 tablet, Rfl: 1 FAMILY HISTORY: Family History Problem Relation Age of Onset Arthritis Mother other (Larynx cancer) Father other (hyperlipidemia) Father Social History: Tobacco Use: Never Alcohol Use: Yes (rarely) ROS: Constitutional: negative for chills and fevers HEENT: no blurry vision or eye redness Respiratory: negative for hemoptysis and shortness of breath Cardiovascular: negative for dyspnea and syncope Gastrointestinal: negative for jaundice, nausea and vomiting Genitourinary: see HPI Hematologic/lymphatic: negative for bleeding Integumentary: no new bruises or lesions Musculoskeletal:negative for muscle weakness Neurological: negative for coordination problems and seizures All other systems negative PHYSICAL EXAM: VITALS: There were no vitals filed for this visit. General: Alert, in no acute distress Head: Normocephalic, atraumatic Respiratory: normal lung sounds, normal effort, no audible wheezes Cardiovascular: normal heart sounds, regular rate, regular pulse and no cyanosis Abdomen: soft, non distended, non tender : soft, no L/R flank/CVA TTP, no suprapubic TTP DATA: LABS: BMP: . Glucose (mg/dL) Date Value 10/02/2023 109 09/28/2020 98 Potassium (mmol/L) Date Value 10/02/2023 4.3 09/28/2020 4.3 Sodium (mmol/L) Date Value 10/02/2023 136 09/28/2020 135 Chloride (mmol/L) Date Value 10/02/2023 101 09/28/2020 101 CO2 (mmol/L) Date Value 10/02/2023 23 09/28/2020 20 Creatinine (mg/dL) Date Value 10/02/2023 1.25 09/28/2020 1.16 BUN (mg/dL) Date Value 10/02/2023 14 09/28/2020 21 Anion Gap (mmol/L) Date Value 10/02/2023 12 09/28/2020 14 Calcium (mg/dL) Date Value 09/28/2020 10.0 Calcium, Total (mg/dL) Date Value 10/02/2023 9.7 CBC: Hemoglobin (g/dL) Date Value 10/02/2023 13.2 09/28/2020 12.9 Hematocrit (%) Date Value 10/02/2023 40.2 09/28/2020 39.9 WBC (k/uL) Date Value 10/02/2023 8.45 09/28/2020 8.25 Platelet Count (k/uL) Date Value 10/02/2023 270 09/28/2020 292 RADIOLOGY: XR ABDOMEN 1V SUPINE Final Result IMPRESSION: Bilateral nephrolithiasis measuring up to 1.3 cm, unchanged. Lead Tinner: PSCB Transcribe Date/Time: Dec 03 2023 9:20A Dictated by : HARSH DINERO MD This examination was interpreted and the report reviewed and electronically signed by: HARSH DINERO MD on Dec 03 2023 9:22AM EST IMPRESSION: 67 year old male with hx of renal stones PLAN: - To the OR for ESWL - anticipate DC home following procedure Thank you for allowing me to participate in the care of your patient Torsten Whittaker MD PGY 2 Urology #[id number] 9:29 AM 12/03/23 [facility] OPERATIVE NOon 12-03-2023 OPERATIVE NO HNO ID: [id number] Author: PATRICE EDWARDS JR, MD Service: Urology Author Type: Resident Type: Operative Report Filed: 12/03/2023 11:40 Note Text: ----- Attestation signed by Patrice Edwards Jr., MD at 12/03/2023 11:40 AM I was present for the entire procedure and directly participated in the critical and hubbard portions of the surgery. I was immediately available to provide assistance throughout the entire case. Patrice Edwards Jr, MD ----- Urology Operative Report LOG ID: [id number] SURGERY/PROCEDURE DATE: 12/03/2023 INCISION/PROCEDURE START TIME: 10:27 AM INCISION CLOSE/PROCEDURE END TIME: 11:01 AM PreOp Dx RIGHT renal calculus PostOp Dx Same Operation : RIGHT Extracorporeal Shock Wave Lithotripsy SURGEON(S)/PROCEDURALIST( S) AND ENTRY SPECIALISTS(S): Surgeons and Role: * Patrice Edwards Jr., MD - Primary * Torsten Whittaker MD - Resident - Assisting No Additional Staff ANESTHESIA: General FINDINGS: RIGHT renal stone confirmed on radiographic imaging ESTIMATED BLOOD LOSS: 0 ml SPECIMENS: None COMPLICATIONS: None Medications Ancef 2 grams Condition To PACU This is a 67 year old patient who presents with a RIGHT renal calculus. After having a discussion on treatment options, risks and benefits, the patient wishes to proceed forward with surgical intervention. Standard Huddle performed. Patient was brought to the operating room. Patient was placed on OR table/supine. A thorough time out was performed and everyone present was in agreement. Anesthesia and lines were maintained by the anesthesia team. Calf compressors confirmed on and functioning. ESWL Using flouroscopic visualization, the calculus was able to be visualized. The focal point of the lithotripter was positioned over the stone in a three dimensional coordinate plane. A total of 2500 shocks were delivered at approx. Level 5. There was good fragmentation of the stone seen at the termination of the procedure. patient awoken from anesthesia.Transferred to PACU Torsten Whittaker MD PGY 2 Urology #[id number] 11:15 AM 12/03/23 Normal [facility] XR ABDOMEN 1V SUPINEon 12-02 XR ABDOMEN 1V SUPINE * * *Final Report* * * DATE OF EXAM: Dec 03 2023 9:12AM AKX [id number] - XR ABDOMEN 1V SUPINE / PROCEDURE REASON: Pre/Post operative evaluation * * * * Physician Interpretation * * * * XR ABDOMEN 1V [id number]/03/2023 9:12 AM CLINICAL HISTORY: Pre/Post operative evaluation COMPARISON: Abdominal radiograph 10/30/2023. TECHNIQUE: XR ABDOMEN 1V SUPINE RESULT: Multiple bilateral renal calculi measuring up to 1.3 cm in the right upper pole, similar to 10/30/2023 CT abdomen and pelvis. Moderate stool. No dilated bowel. Degenerative changes. IMPRESSION: Bilateral nephrolithiasis measuring up to 1.3 cm, unchanged. [facility] Transcribe Date/Time: Dec 03 2023 9:20A Dictated by : HARSH DINERO MD This examination was interpreted and the report reviewed and electronically signed by: HARSH DINERO MD on Dec 03 2023 9:22AM EST [id number] Normal [facility] Bacteria Ur Culton 4 Bacteria identified Cx Nom (U) ORGANISM ID: 1 10,000 -<50,000 CFU/ml Normal urogenital lazaro Normal [facility] Comment on above: Performed By: #### 6 30-4 ####[facility] LABCLIA [id number] [address] [place] CNPOrquidea 11-13-2023 CNPN Telephone (UROLAE) ----- BONNIE MARTINEZ ([id number]) 1955 M Date Time Provider Department 11/13/23 PATRICE EDWARDS JR During your visit today, we recorded the following information about you: Tahira Garnica MA 11/13/2023 9:46 AM Signed Pt called looking to schedule surgery quickly due to pt discomfort. stated that Pt is to have ESWL scheduled. VICKY Malagon Julie 11/13/2023 2:09 PM Signed Spoke with pt's and surgery planned for 12/03/[address] Edwards. Pt having bouts of nausea and requests a prescription gets sent to his pharmacy- [facility] in [place]. Please advise. Thanks, Patrice Barcenas Jr., MD 11/13/2023 2:14 PM Signed sent Joyce Marley 11/13/2023 2:24 PM Signed Pt's notified to check pharmacy. Joyce Marley Allergies As of Date: 11/13/2023 Noted Allergy Reaction ERYTHROMYCIN BASE 09/21/2008 8 - GI Upset Date Reviewed: 11/08/2023 Reviewed by: Patrice Edwards Jr., MD - Fully Assessed Reason for Visit: Schedule Surgery [1330] Order(s):ondansetron (ZOFRAN) 8 mg tabletTake 1 tablet by mouth every 8 hours as needed for nausea/vomiting.Disp: 20 tabletRfl: 1 Prescriptions as of 11/13/2023 - ondansetron (ZOFRAN) 8 mg tablet Take 1 tablet by mouth every 8 hours as needed for nausea/vomiting. - tamsulosin (FLOMAX) 0.4 mg Take 1 capsule by mouth once daily. 30 minutes after the same meal each day. 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 Encounter Status:Closed by JOYCE MARLEY on 11/13/23 [facility] CNOVon 11-08-2023 CNOV Office Visit (AKURFL ) ----- BONNIE MARTINEZ ([id number]) 1955 M Date Time Provider Department 11/08/23 10:00 AM PATRICE EDWARDS JR During your visit today, we recorded the following information about you: Height 1.727 m Patrice Edwards Jr., MD 11/08/2023 11:51 AM Signed ESTABLISHED PATIENT OFFICE VISIT HPI Bonnie Spann Juan is a 67 year old male who presents refer for elevated psa, ho kidney stones and flank pain. No fever. No uti. Psa now 7.55 and last year was 6.61. co L flank pain. Renal us showed non obstructing stones. 11/08/23 - ct and kub reviewed. 12 and 6 mm R renal calculus. 7 and 8 mm L renal calculus. Kub+. HU's 700's. Options discussed. Does not want to do laser litho or pcnl. [facility] LAB: Creatinine Date Value Ref Range Status 10/02/2023 1.25 (H) 0.73 - 1.22 mg/dL Final PSA (ng/mL) Date Value 10/02/2023 7.55 11/21/2022 6.61 PSA Screening (ng/mL) Date Value 11/06/2019 4.56 Glucose, Urine (no units) Date Value 10/02/2023 Negative Bilirubin, Urine (no units) Date Value 10/02/2023 Negative Ketones, Urine (no units) Date Value 10/02/2023 Negative Specific [place], Ur (no units) Date Value 10/02/2023 1.013 Hemoglobin/Blood,Ur (no units) Date Value 10/02/2023 Negative pH, Urine (no units) Date Value 10/02/2023 6.0 Protein, Urine (no units) Date Value 10/02/2023 Negative Nitrites (no units) Date Value 10/02/2023 Negative WBC, Urine (no units) Date Value 10/02/2023 0-5 /HPF MEDICATIONS: tamsulosin (FLOMAX) 0.4 mg Take 1 capsule by mouth once daily. 30 minutes after the same meal each day. (Patient not taking: Reported on 11/08/2023) REVIEW OF SYSTEMS Review of Systems Constitutional: Negative. Respiratory: Negative. Cardiovascular: Negative. Gastrointestinal: Negative. Genitourinary: Negative. Skin: Negative. Neurological: Negative. Psychiatric/Behavioral: Negative. 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 PMH - PAST MEDICAL HISTORY OF DDD, PMH - PAST MEDICAL HISTORY OF 08/2008 fracture clavicel, ribs and right ankle Unspecified essential hypertension FAMILY HISTORY Problem Relation Age of Onset Arthritis Mother other (Larynx cancer) Father other (hyperlipidemia) Father SOCIAL HISTORY Social History Tobacco Use Smoking status: Never Smokeless tobacco: Never Vaping Use Vaping status: Never Used Substance Use Topics Alcohol use: Yes Comment: rarely Drug use: Never PHYSICAL EXAMINATION General appearance: Well appearing, alert, in no acute distress, and well-hydrated, well nourished Skin: Skin color, texture, turgor normal, no suspicious rashes or lesions Respiratory:+ effort Cardiovascular: Not examined GI: Normal abdominal exam, Abdomen soft, non-tender. No masses, organomegaly Musculoskeletal: Negative Neuro: Negative Genitourinary: not examined Impression: (N20.0) Kidney stones [N20.0] (primary encounter diagnosis) Plan: right ESWL All r/b/a of surgery discussed, infection, bleeding, damage to nearby structures, repeat surgery, stent placement, steinstrasse, kidney damage, surgery failure, , heart attack, stroke, deep vein thrombosis, pulmonary embolus. Patient verbalized understanding and agrees to proceed. Patrice Edwards Jr, MD 11/08/2023 Referring Provider: PATRICE EDWARDS JR [[id number]] Allergies As of Date: 11/08/2023 Noted Allergy Reaction ERYTHROMYCIN BASE 09/21/2008 8 - GI Upset Date Reviewed: 11/08/2023 Reviewed by: Patrice Edwards Jr., MD - Fully Assessed Reason for Visit: Kidney Stones [06758] Primary Visit Diagnosis:Kidney stones [N20.0] [N20.0] Order(s):UA DIP, URINE (POC) [0870764] Order #: [id number]. #:[id number] Prescriptions as of 11/08/2023 - tamsulosin (FLOMAX) 0.4 mg Take 1 capsule by mouth once daily. 30 minutes after the same meal each day. Meds Comments as of 03/15/2018: Currently on no medications - uses OTC Sleep-Aid nightly (Benadryl) Problem List As Of Date 11/08/2023 Noted Resolved DEGENERATED DISK DISEASE CERVICAL-NO MYELOPATHY*08/09/2005 HERNIATED DISK LUMBOSACRAL-NO MYELOPATHY [M51.2*08/09/2005 Essential hypertension [I10] 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] 07/05/2010 Tendonitis, Achilles, left [M76.62] 02/06/2011 Pure hypercholesterolemia [E78.00] 05/31/2015 Nonintractable headache [R51.9] 05/31/2015 Conductive hearing loss, bilateral [H90.0] 09/23/2020 DDD (degenerative disc disease), cervical [M50.*04/04/2023 Numbness of hand [R20.0] 04/04/2023 Acute pain of right shoulder [M25.511] 04/04/2023 Chronic neck pain [M54.2, G89.29] 04/04/2023 Disposition: Return in about 4 weeks (around 12/06/2023). Follow-up and Disposition History (more content not included)... Normal [facility] UA DIP, URINE (POC)on 2023 BILIRUBIN UA (POCT) Negative Negative [facility] CLARITY UA (POCT) Clear [facility] COLOR UA (POCT) Yellow [facility] GLUCOSE UA (POCT) Negative Negative mg/dL [facility] Hemoglobin Ql (U) Trace-intact Abnormal Negative [facility] Interpretation and review of laboratory results Abnormal [facility] KETONE UA (POCT) Negative Negative mg/dL [facility] LEUKOCYTES UA (POCT) Negative [facility] NITRITE UA (POCT) Negative Negative [facility] PH UA (POCT) 5.5 4.5 - 8.0 [facility] Protein Ql (U) Negative Negative mg/dL [facility] SPECIFIC GRAVITY UA (POCT) 1.020 1.005 - 1.030 [facility] UROBILINOGEN UA (POCT) 0.2 Normal E.U./dL [facility] Location:[facility], [address] [place] [address], [address] [place] [address] POINT OF CARE [facility] CNOVon 11-01-2023 CNOV Office Visit (ROSEY ) ----- BONNIE MARTINEZ ([id number]) 1955 M Date Time Provider Department 11/01/23 11:00 AM IDA CARLTON During your visit today, we recorded the following information about you: Ida Carlton MD 11/01/2023 1:31 PM Signed Orthopaedic Office Note: November 01, 2023 11:38 AM Bonnie Martinez 67 year old History: Bonnie Martinez is a 67 y/o male patient presenting with a chief complain of bilateral hip pain. Pain is worse on the left side. Pain started 25 years ago and getting worse over time. Pain is located at the groin and lateral side of the hip in both sides. Pain is described as constant and achy. He has not tried any pain medication, PT, or injections. 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 He is neurovascular intact. Subjective: See above Updated ROS: No changes Updated Exam: Left hip exam: Normal overlying skin. No visible swelling or erythema. No inguinal lymphadenopathy. + Stinchfield sign. + pain with impingement testing. + pain with MILLIE and FADIR testing. + tenderness to palpation over anterior and lateral side of hip. Range of motion is 90 degrees of flexion. 5/5 iliopsoas, abductors, quadriceps, hamstrings, tibialis anterior, gastrocsoleus, extensor hallucis longus. Sensation intact to light touch throughout the tibial, sural, saphenous, deep and superficial peroneal nerve distributions. +2 dorsalis pedis and posterior tibial pulses. Right hip exam: Normal overlying skin. No visible swelling or erythema. No inguinal lymphadenopathy. + Stinchfield sign. + pain with impingement testing. + pain with MILLIE and FADIR testing. + tenderness to palpation over anterior and lateral side of hip. Range of motion is 90 degrees of flexion. 5/5 iliopsoas, abductors, quadriceps, hamstrings, tibialis anterior, gastrocsoleus, extensor hallucis longus. Sensation intact to light touch throughout the tibial, sural, saphenous, deep and superficial peroneal nerve distributions. +2 dorsalis pedis and posterior tibial pulses. Updated Imaging: X-rays from 09/12/23 were reviewed : Mild degenerative changes at the hips with no acute fractures Assessment and Plan: - X-rays were reviewed with the patient - At this point, given his moderate OA and symptoms, conservative treatment was recommended - PT sessions were recommended - If symptoms get worse, patient was advised to return to clinic or consider CSIs I spent a total of 20 minutes on the date of the service which included [id number] patient care, performing a medically appropriate examination, counseling and educating the patient/family/caregiver, independently interpreting results (not separately reported), and communicating results to the patient/family/caregiver. Ida Carlton MD Orthopaedic Surgery Referring Provider: JUSTINE LEARY [[id number]] Allergies As of Date: 11/01/2023 Noted Allergy Reaction ERYTHROMYCIN BASE 09/21/2008 8 - GI Upset Date Reviewed: 11/01/2023 Reviewed by: Tiff Fuentes OCCA - Fully Assessed Reason for Visit: New [520813] Pain [78] New [290976] Pain [78] Visit Diagnosis:Bilateral hip pain [M25.551, M25.552] Order(s):CONSULT TO ORTHOPAEDICS [9061] Order #: [id number]: 1 Prescriptions as of 11/01/2023 - tamsulosin (FLOMAX) 0.4 mg Take 1 capsule by mouth once daily. 30 minutes after the same meal each day. 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 Hepatic steatosis. Colonic diverticulosis. Lead Tinner: DEVANG Transcribe Date/Time: Oct 31 2023 1:30P Dictated by : JEANNETTE TUCKER MD This examination was interpreted and the report reviewed and electronically signed by: JEANNETTE TUCKER MD on Oct 31 2023 1:39PM [facility] DIVISION OF RADIOLOGY * * *Final Report* * * DATE OF EXAM: Oct 30 2023 11:53AM [facility] 0529 - CT FLANK WO IVCON / PROCEDURE REASON: multiple diagnoses * * * * Physician Interpretation * * * * EXAMINATION: CT FLANK WITHOUT IV CONTRAST CLINICAL HISTORY: Flank pain. TECHNIQUE: Non-contrast imaging of the abdomen and pelvis was performed through the urinary tract. Study performed without intravenous or oral contrast to evaluate for urinary tract calculus. MQ: CTAbdPelvF_1 Contrast: IV contrast: None Oral contrast: None CT Radiation dose: Integrated dose-length product (DLP) for this visit = 367 mGy*cm. CT Dose Reduction Employed: Automated exposure control(AEC) and iterative recon COMPARISON: None. RESULT: Limitations: Unenhanced imaging is limited for the evaluation of some renal and other intra-abdominal and pelvic pathology. Urinary Tract: Right kidney and ureter: A few calculi seen in the kidney measuring up to 1.4 cm. No hydronephrosis. No finding to suggest cyst or mass in the unenhanced kidney. Left kidney and ureter: A few calculi seen in the kidney measuring up to 9 mm. No hydronephrosis. No finding to suggest cyst or mass in the unenhanced kidney. Bladder: No calculus. Abdomen and Pelvis: Liver: There is hepatic steatosis. No mass lesion seen. Biliary: No bile bowel dilation. No CT evidence of gallbladder stones. Spleen: No splenomegaly. Pancreas: Unremarkable. Adrenals: The right adrenal gland appears slightly prominent. GI Tract: No bowel dilation. The appendix is identified and normal in appearance. There are multiple colonic diverticula along the sigmoid colon, without evidence of diverticulitis. Lymph Nodes: A few borderline enlarged lymph nodes seen in the retroperitoneum. Mesentery/peritoneum: No ascites. Vasculature: There are atherosclerotic calcifications in the abdomen aorta and its branches. No AAA. Pelvis: No mass or ascites. Bones and Soft Tissues: No acute abnormality. The spine shows degenerative changes with L5-S1 disc space narrowing. Lower thorax: No pleural effusions. The lung bases are clear of consolidations. Localizer images: No additional findings. DIVISION OF RADIOLOGY Provider, Larissa Ailin [facility] - 10/31/2023 * * *Final Report* * * DATE OF EXAM: Oct 30 2023 11:53AM [facility] 0529 - CT FLANK WO IVCON / PROCEDURE REASON: multiple diagnoses * * * * Physician Interpretation * * * * EXAMINATION: CT FLANK WITHOUT IV CONTRAST CLINICAL HISTORY: Flank pain. TECHNIQUE: Non-contrast imaging of the abdomen and pelvis was performed through the urinary tract. Study performed without intravenous or oral contrast to evaluate for urinary tract calculus. MQ: CTAbdPelvF_1 Contrast: IV contrast: None Oral contrast: None CT Radiation dose: Integrated dose-length product (DLP) for this visit = 367 mGy*cm. CT Dose Reduction Employed: Automated exposure control(AEC) and iterative recon COMPARISON: None. RESULT: Limitations: Unenhanced imaging is limited for the evaluation of some renal and other intra-abdominal and pelvic pathology. Urinary Tract: Right kidney and ureter: A few calculi seen in the kidney measuring up to 1.4 cm. No hydronephrosis. No finding to suggest cyst or mass in the unenhanced kidney. Left kidney and ureter: A few calculi seen in the kidney measuring up to 9 mm. No hydronephrosis. No finding to suggest cyst or mass in the unenhanced kidney. Bladder: No calculus. Abdomen and Pelvis: Liver: There is hepatic steatosis. No mass lesion seen. Biliary: No bile bowel dilation. No CT evidence of gallbladder stones. Spleen: No splenomegaly. Pancreas: Unremarkable. Adrenals: The right adrenal gland appears slightly prominent. GI Tract: No bowel dilation. The appendix is identified and normal in appearance. There are multiple colonic diverticula along the sigmoid colon, without evidence of diverticulitis. Lymph Nodes: A few borderline enlarged lymph nodes seen in the retroperitoneum. Mesentery/peritoneum: No ascites. Vasculature: There are atherosclerotic calcifications in the abdomen aorta and its branches. No AAA. Pelvis: No mass or ascites. Bones and Soft Tissues: No acute abnormality. The spine shows degenerative changes with L5-S1 disc space narrowing. Lower thorax: No pleural effusions. The lung bases are clear of consolidations. Localizer images: No additional findings. IMPRESSION IMPRESSION: Nonobstructing bilateral renal calculi. Hepatic steatosis. Colonic diverticulosis. Lead Tinner: DEVANG Transcribe Date/Time: Oct 31 2023 1:30P Dictated by : JEANNETTE TUCKER MD This examination was interpreted and the report reviewed and electronically signed by: JEANNETTE TUCKER MD on Oct 31 2023 1:39PM EST [facility] CT Abdomen and Pelvis WO con trastOrdered By: [facility] Provider on 10-31-[address] [facility] [address] Abdomen and Pelvis WO con traston 10-30-2023 Radiology Study observation (narrative) [facility] CT FLANK WO IVCONon 10-30-[address] FLANK WO IVCON * * *Final Report* * * DATE OF EXAM: Oct 30 2023 11:53AM [facility] 0529 - CT FLANK WO IVCON / PROCEDURE REASON: multiple diagnoses * * * * Physician Interpretation * * * * EXAMINATION: CT FLANK WITHOUT IV CONTRAST CLINICAL HISTORY: Flank pain. TECHNIQUE: Non-contrast imaging of the abdomen and pelvis was performed through the urinary tract. Study performed without intravenous or oral contrast to evaluate for urinary tract calculus. MQ: CTAbdPelvF_1 Contrast: IV contrast: None Oral contrast: None CT Radiation dose: Integrated dose-length product (DLP) for this visit = 367 mGy*cm. CT Dose Reduction Employed: Automated exposure control(AEC) and iterative recon COMPARISON: None. RESULT: Limitations: Unenhanced imaging is limited for the evaluation of some renal and other intra-abdominal and pelvic pathology. Urinary Tract: Right kidney and ureter: A few calculi seen in the kidney measuring up to 1.4 cm. No hydronephrosis. No finding to suggest cyst or mass in the unenhanced kidney. Left kidney and ureter: A few calculi seen in the kidney measuring up to 9 mm. No hydronephrosis. No finding to suggest cyst or mass in the unenhanced kidney. Bladder: No calculus. Abdomen and Pelvis: Liver: There is hepatic steatosis. No mass lesion seen. Biliary: No bile bowel dilation. No CT evidence of gallbladder stones. Spleen: No splenomegaly. Pancreas: Unremarkable. Adrenals: The right adrenal gland appears slightly prominent. GI Tract: No bowel dilation. The appendix is identified and normal in appearance. There are multiple colonic diverticula along the sigmoid colon, without evidence of diverticulitis. Lymph Nodes: A few borderline enlarged lymph nodes seen in the retroperitoneum. Mesentery/peritoneum: No ascites. Vasculature: There are atherosclerotic calcifications in the abdomen aorta and its branches. No AAA. Pelvis: No mass or ascites. Bones and Soft Tissues: No acute abnormality. The spine shows degenerative changes with L5-S1 disc space narrowing. Lower thorax: No pleural effusions. The lung bases are clear of consolidations. Localizer images: No additional findings. IMPRESSION: Nonobstructing bilateral renal calculi. Hepatic steatosis. Colonic diverticulosis. Lead Tinner: [facility] Transcribe Date/Time: Oct 31 2023 1:30P Dictated by : JEANNETTE TUCKER MD This examination was interpreted and the report reviewed and electronically signed by: JEANNETTE TUCKER MD on Oct 31 2023 1:39PM EST [id number] Normal [facility] XR ABDOMEN 1V SUPINEon 10-29 XR ABDOMEN 1V SUPINE * * *Final Report* * * DATE OF EXAM: Oct 30 2023 11:35AM [id number] [id number] - XR ABDOMEN 1V SUPINE / PROCEDURE REASON: multiple diagnoses * * * * Physician Interpretation * * * * Indication: Kidney stones Comparison: None 2 x-rays of the abdomen are obtained. There is a non-obstructed bowel gas pattern. There is no hepatomegaly or splenomegaly. Bilateral renal calculi measuring up to 12 mm on the right and 9 mm on the left.. There are no acute osseous abnormalities. IMPRESSION: Bilateral renal calculi Lead Tinner: [facility] Transcribe Date/Time: Nov 02 2023 10:25A Dictated by : SHELIA HIGGINS MD This examination was interpreted and the report reviewed and electronically signed by: SHELIA HIGGINS MD on Nov 02 2023 10:27AM EST [id number] Normal [facility] CNOVon 10-25-2023 CNOV Office Visit (AKURFL ) ----- BONNIE MARTINEZ ([id number]) 1955 M Date Time Provider Department 10/25/23 2:00 PM PATRICE EDWARDS JR During your visit today, we recorded the following information about you: Pulse Blood pressure Height 77/minute 140/82 1.727 m Patrice Edwards Jr., MD 10/26/2023 8:11 AM Signed NEW PATIENT HISTORY AND PHYSICAL EXAM PATIENT INFO: Bonnie Martinez 67 year old REFERRING PROVIDER: SUBHA CAMACHO PCP: Lilian Chowdhury MD HPI Bonnie Martinez is a 67 year old male refer for elevated psa, ho kidney stones and flank pain. No fever. No uti. Psa now 7.55 and last year was 6.61. co L flank pain. Renal us showed non obstructing stones. Review of Systems Constitutional: Negative. Respiratory: Negative. Cardiovascular: Negative. Gastrointestinal: Negative. Genitourinary: Negative. Skin: Negative. Neurological: Negative. Psychiatric/Behavioral: Negative. LAB: Creatinine Date Value Ref Range Status 10/02/2023 1.25 (H) 0.73 - 1.22 mg/dL Final PSA (ng/mL) Date Value 10/02/2023 7.55 11/21/2022 6.61 PSA Screening (ng/mL) Date Value 11/06/2019 4.56 Glucose, Urine (no units) Date Value 10/02/2023 Negative Bilirubin, Urine (no units) Date Value 10/02/2023 Negative Ketones, Urine (no units) Date Value 10/02/2023 Negative Specific [place], Ur (no units) Date Value 10/02/2023 1.013 Hemoglobin/Blood,Ur (no units) Date Value 10/02/2023 Negative pH, Urine (no units) Date Value 10/02/2023 6.0 Protein, Urine (no units) Date Value 10/02/2023 Negative Nitrites (no units) Date Value 10/02/2023 Negative WBC, Urine (no units) Date Value 10/02/2023 0-5 /HPF MEDICATIONS: iv contrast (will be provided with radiology test) MRI Prostate Inject, intravenously, once for 1 dose. No IV access, insert saline lock prior to the beginning of sedation, infusion, injection of imaging exam. Discontinue saline lock post exam. If Pt. has a central line or IVAD, may access for administration according to line specific nursing protocol. Once exam is complete flush line and de-access according to line specific nursing protocol in the MR contrast administration guidelines link. tamsulosin (FLOMAX) 0.4 mg Take 1 capsule by mouth once daily. 30 minutes after the same meal each day. HISTORIES PAST MEDICAL HISTORY No date: Allergic rhinitis, cause unspecified Comment: Allergic rhinitis No date: Hearing loss Comment: high frequency loss since child No date: PMH - PAST MEDICAL HISTORY OF Comment: DDD, 08/2008: PMH - PAST MEDICAL HISTORY OF Comment: fracture clavicel, ribs and right ankle No date: Unspecified essential hypertension FAMILY HISTORY Problem Relation Age of Onset Arthritis Mother other (Larynx cancer) Father other (hyperlipidemia) Father SOCIAL HISTORY Social History Tobacco Use Smoking status: Never Smokeless tobacco: Never Vaping Use Vaping status: Never Used Substance Use Topics Alcohol use: Yes Comment: rarely Drug use: Never PHYSICAL EXAMINATION BP 140/82 Pulse 77 Ht 172.7 cm (5' 8 ) SpO2 98% BMI 31.17 kg/m? General appearance: Well appearing, alert, in no acute distress, and well-hydrated, well nourished Skin: Skin color, texture, turgor normal, no suspicious rashes or lesions Respiratory:+ effort Cardiovascular: Not examined GI: Normal abdominal exam, Abdomen soft, non-tender. No masses, organomegaly Musculoskeletal: normal ROM Neuro: No gross neurologic defecits Genitourinary: not examined ASSESSMENT: (N20.0) Kidney stone (primary encounter diagnosis) (R97.20) Elevated PSA (R10.9) Flank pain (Z03.89) Encounter for observation for other suspected diseases and conditions ruled out PLAN: Ct flank and kub Fu after Mri prostate Patrice Edwards Jr, MD Referring Provider: JUSTINE LEARY [[id number]] Allergies As of Date: 10/25/2023 Noted Allergy Reaction ERYTHROMYCIN BASE 09/21/2008 8 - GI Upset Date Reviewed: 10/25/2023 Reviewed by: Patrice Edwards Jr., MD - Fully Assessed Reason for Visit: Elevated PSA [3906] Kidney Stones [64644] Primary Visit Diagnosis:Kidney stone [N20.0] Other Visit Diagnoses:Elevated PSA [R97.20] Flank pain [R10.9] Encounter for observation for other suspected diseases and conditions ruled out [Z03.89] Order(s):CONSULT TO UROLOGY [9092] Order #: [id number]: 1 UA DIP, URINE (POC) [[id number]] Order #: [id number]. #:[id number] 48-LAB CT FLANK WO IVCON [[id number]] Order #: [id number] FUTURE MRI PROSTATE WO/W IVCON [[id number]] Order #: [id number] FUTURE iv contrast (will be provided with radiology test)MRI Prostate Inject, intravenously, once for 1 dose. No IV access, insert saline lock prior to the beginning of sedation, infusion, injection of imaging exam. Discontinue saline lock post exam. If Pt. has (more content not included)... Normal [facility] UA DIP, URINE (POC)on 2023 BILIRUBIN UA (POCT) Negative Negative [facility] CLARITY UA (POCT) Clear [facility] COLOR UA (POCT) Yellow [facility] GLUCOSE UA (POCT) Negative Negative mg/dL [facility] Hemoglobin Ql (U) Small Abnormal Negative [facility] Interpretation and review of laboratory results Abnormal [facility] KETONE UA (POCT) Negative Negative mg/dL [facility] LEUKOCYTES UA (POCT) Negative Negative [facility] NITRITE UA (POCT) Negative Negative [facility] PH UA (POCT) 6.5 4.5 - 8.0 [facility] Protein Ql (U) Negative Negative mg/dL [facility] SPECIFIC GRAVITY UA (POCT) 1.020 1.005 - 1.030 [facility] UROBILINOGEN UA (POCT) 0.2 Normal E.U./dL [facility] Location:[facility], [address] [place] [address], [address] [place] [address] POINT OF CARE [facility] Aishwarya 10-18-2023 EUSEBION Telephone (FAMPWS) ----- BONNIE MRATINEZ ([id number]) 1955 M Date Time Provider Department 10/18/23 JUSTINE LEARY During your visit today, we recorded the following information about you: Justine Leary APRN.[employer] 10/18/2023 1:27 PM Signed Can you please call the patient and let him know that I reviewed his ultrasound results. Ultrasound shows bilateral kidney stones, no hydronephrosis noted. There was some mild residual urinary retention after voiding. I would recommend that he keep upcoming appointment with urology for further evaluation. Please let me know if he has any questions. Thank you. Justine Leary APRN.Jesse Gaytna LPN 10/18/2023 1:41 PM Signed TC to pt. LM to call office, ask for triage nurse to get results. CESARIO Edwards Sherrie, RN 10/18/2023 3:29 PM Signed Patient returned call and given provider's message below and patient verbalized understanding. 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] 07/05/2010 Tendonitis, Achilles, left [M76.62] 02/06/2011 Pure hypercholesterolemia [E78.00] 05/31/2015 Nonintractable headache [R51.9] 05/31/2015 Conductive hearing loss, bilateral [H90.0] 09/23/2020 DDD (degenerative disc disease), cervical [M50.*04/04/2023 Numbness of hand [R20.0] 04/04/2023 Acute pain of right shoulder [M25.511] 04/04/2023 Chronic neck pain [M54.2, G89.29] 04/04/2023 Encounter Status:Closed by NILDA VIVAS on 10/18/23 Normal [facility] US KIDNEY/BLADDERon 10-15-19 US KIDNEY/BLADDER * * *Final Report* * * DATE OF EXAM: Oct 15 2023 10:25AM U 1055 - US KIDNEY/BLADDER / PROCEDURE REASON: multiple diagnoses * * * * Physician Interpretation * * * * EXAMINATION: RENAL ULTRASOUND CLINICAL HISTORY: Flank pain TECHNIQUE: Sonography of the kidneys and urinary bladder was performed. Images were obtained and stored in a permanent archive. MQ: UR_1 COMPARISON: None RESULT: Right Kidney: -Renal length: 11.9 cm -Parenchyma: Normal parenchymal echogenicity. Normal parenchymal thickness. -Collecting system: No hydronephrosis. -Calculus: Echogenic upper pole 0.7 cm focus may represent a stone -Lesion: None. Left Kidney: -Renal length: 11.2 cm -Parenchyma: Normal parenchymal echogenicity. Normal parenchymal thickness. -Collecting system: No hydronephrosis. -Calculus: 0.9 cm midpole nonobstructing calculus -Lesion: None. Bladder: Normal sonographic appearance. Pre and postvoid urinary bladder volume of 112 cc and 13 cc respectively were recorded. Prostate measures 3.9 x 4.5 x 4.2 cm Renal contours are somewhat suboptimally seen due to overlying bowel gas IMPRESSION: NO HYDRONEPHROSIS. Nephrolithiasis Small postvoid residual urinary bladder volume [facility] Transcribe Date/Time: Oct 16 2023 10:37A Dictated by : MARGARET PALAFOX MD This examination was interpreted and the report reviewed and electronically signed by: MARGARET PALAFOX MD on Oct 16 2023 10:43AM EST [id number] Normal [facility] JUANBONNIE NAIDU ([id number]) 1955 M Date Time Provider Department 10/03/23 JUSTINE LEARY During your visit today, we recorded the following information about you: Justine Leary APRN.CNP 10/03/2023 7:47 AM Signed Can you please call the patient and let him know that I reviewed his lab and urine results. Urine microanalysis was normal, culture is still pending. PSA has increased to 7.55 but the free PSA percentage was 17, this correlates with a possible 30% risk of malignancy, however we normally recommend a consult with urology with a percentage less than 11. We can either continue to monitor the PSA through labs or he is welcome to have a consult with urology for further evaluation. Once I receive his ultrasound results I will be in touch with him. Please let me know if he has any questions. Thank you. ISAIAH Wiley Barbara, LPN 10/03/2023 8:52 AM Signed Patient notified of results, verbalizes understanding of instructions. Pt wants a consult to Urology. Please place. CESARIO Edwards Ashley, APRN.CNP 10/03/2023 9:00 AM Signed Consult has been placed. Justine Leary APRN.CNP Allergies As of Date: 10/03/2023 Noted Allergy Reaction ERYTHROMYCIN BASE 09/21/2008 8 - GI Upset Date Reviewed: 10/02/2023 Reviewed by: Jesse Gonzalez LPN - Fully Assessed Reason for Visit: Results [95] Cmt: Labs/urine Primary Visit Diagnosis:Elevated PSA [R97.20] Order(s):CONSULT TO UROLOGY [9041] Order #: [id number]: 1 FUTURE Meds Comments as of 03/15/2018: Currently on no medications - uses OTC Sleep-Aid nightly (Benadryl) Problem List As Of Date 10/03/2023 Noted Resolved DEGENERATED DISK DISEASE CERVICAL-NO MYELOPATHY*08/09/2005 HERNIATED DISK LUMBOSACRAL-NO MYELOPATHY [M51.2*08/09/2005 Essential hypertension [I10] 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] 07/05/2010 Tendonitis, Achilles, left [M76.62] 02/06/2011 Pure hypercholesterolemia [E78.00] 05/31/2015 Nonintractable headache [R51.9] 05/31/2015 Conductive hearing loss, bilateral [H90.0] 09/23/2020 DDD (degenerative disc disease), cervical [M50.*04/04/2023 Numbness of hand [R20.0] 04/04/2023 Acute pain of right shoulder [M25.511] 04/04/2023 Chronic neck pain [M54.2, G89.29] 04/04/2023 Encounter Status:Closed by JUSTINE LEARY on 10/03/23 Normal [facility] Bacteria Ur Culton Bacteria identified Cx Nom (U) CULTURE, URINE: No growth (<1,000 CFU/ml) Normal [facility] Comment on above: Performed By: #### 6 30-4 ####[facility] LABCLIA [id number] [place] [address] [place] CBC W Auto Differential pane l (Bld)on 10-02-2023 Basophils (Bld) [#/Vol] 0.06 10*3/uL [facility] Basophils/100 WBC (Bld) 0.7 % [facility] Differential cell count method Nom (Bld) Auto [facility] Eosinophils (Bld) [#/Vol] 0.24 10*3/uL [facility] Eosinophils/100 WBC (Bld) 2.8 % [facility] Erythrocyte distribution width (RBC) [Ratio] 12.5 % 11.5 - 15.0 % [facility] Hematocrit (Bld) [Volume fraction] 40.2 % 39.0 - 51.0 % [facility] Hemoglobin (Bld) [Mass/Vol] 13.2 g/dL 13.0 - 17.0 g/dL [facility] Immature granulocytes (Bld) [#/Vol] 0.03 10*3/uL [facility] Immature granulocytes/100 WBC (Bld) 0.4 % [facility] Interpretation and review of laboratory results Abnormal [facility] Lymphocytes (Bld) [#/Vol] 1.49 10*3/uL [facility] Lymphocytes/100 WBC (Bld) 17.6 % [facility] MCH (RBC) [Entitic mass] 29.5 pg 26.0 - 34.0 pg [facility] MCHC (RBC) [Mass/Vol] 32.8 g/dL 30.5 - 36.0 g/dL [facility] MCV (RBC) [Entitic vol] 89.7 fL 80.0 - 100.0 fL [facility] Monocytes (Bld) [#/Vol] 1.29 10*3/uL [facility] Monocytes/100 WBC (Bld) 15.3 % [facility] Neutrophils (Bld) [#/Vol] 5.34 10*3/uL [facility] Neutrophils/100 WBC (Bld) 63.2 % [facility] Nucleated RBC (Bld) [#/Vol] [facility] Nucleated RBC/100 WBC (Bld) [Ratio] 0.0 % /100 WBC [facility] Platelet mean volume (Bld) [Entitic vol] 10.6 fL 9.0 - 12.7 fL [facility] Platelets (Bld) [#/Vol] 270 10*3/uL [facility] RBC (Bld) [#/Vol] 4.48 10*6/uL 4.20 - 6.00 m/uL [facility] WBC (Bld) [#/Vol] 8.45 10*3/uL [facility] Basophils (Bld) [#/Vol] 0.06 10*3/uL Normal <0.11 [facility] Comment on above: Order Comment: Speci men Type: BLOOD SPECIMENOrdering Facility: [facility] Address: [address] [place] [address] Performed By: #### 5 7021-8 ####[facility] LABCLIA [id number] [place] [id number] [place] Basophils/100 WBC (Bld) 0.7 % Normal [facility] Comment on above: Order Comment: Speci men Type: BLOOD SPECIMENOrdering Facility: [facility] Address: [address] [place] [address] Performed By: #### 5 7021-8 ####[facility] LABCLIA [id number] [place] [address] [place] Differential cell count method Nom (Bld) Auto Normal [facility] Comment on above: Order Comment: Speci men Type: BLOOD SPECIMENOrdering Facility: [facility] Address: [address] [place] [address] Performed By: #### 5 7021-8 ####[facility] LABCLIA [id number] [place] [address] [place] Eosinophils (Bld) [#/Vol] 0.24 10*3/uL Normal <0.46 [facility] Comment on above: Order Comment: Speci men Type: BLOOD SPECIMENOrdering Facility: [facility] Address: [address] [place] [address] Performed By: #### 5 7021-8 ####[facility] LABCLIA [id number] [place] [address] [place] Eosinophils/100 WBC (Bld) 2.8 % Normal [facility] Comment on above: Order Comment: Speci men Type: BLOOD SPECIMENOrdering Facility: [facility] Address: [address] [place] [address] Performed By: #### 5 7021-8 ####[facility] LABCLIA [id number] [place] [address] [place] Erythrocyte distribution width (RBC) [Ratio] 12.5 % Normal 11.5-15.0 [facility] Comment on above: Order Comment: Speci men Type: BLOOD SPECIMENOrdering Facility: [facility] Address: [address] [place] [address] Performed By: #### 5 7021-8 ####[facility] LABCLIA [id number] [place] [address] [place] Hematocrit (Bld) [Volume fraction] 40.2 % Normal 39.0-51.0 [facility] Comment on above: Order Comment: Speci men Type: BLOOD SPECIMENOrdering Facility: [facility] Address: [address] [place] [address] Performed By: #### 5 7021-8 ####[facility] LABIA [id number] [place] [address] [place] Hemoglobin (Bld) [Mass/Vol] 13.2 g/dL Normal 13.0-17.0 [facility] Comment on above: Order Comment: Speci men Type: BLOOD SPECIMENOrdering Facility: [facility] Address: [address] [place] [address] Performed By: #### 5 7021-8 ####[facility] LABIA [id number] [place] [address] [place] Immature granulocytes (Bld) [#/Vol] 0.03 10*3/uL Normal <0.10 [facility] Comment on above: Order Comment: Speci men Type: BLOOD SPECIMENOrdering Facility: [facility] Address: [address] [place] [address] Performed By: #### 5 7021-8 ####[facility] LABIA [id number] [place] [address] [place] Immature granulocytes/100 WBC (Bld) 0.4 % Normal [facility] Comment on above: Order Comment: Speci men Type: BLOOD SPECIMENOrdering Facility: [facility] Address: [address] [place] [address] Performed By: #### 5 7021-8 ####[facility] LABCLIA [id number] [place] [address] [place] Lymphocytes (Bld) [#/Vol] 1.49 10*3/uL Normal 1.00-4.00 [facility] Comment on above: Order Comment: Speci men Type: BLOOD SPECIMENOrdering Facility: [facility] Address: [address] [place] [address] Performed By: #### 5 7021-8 ####[facility] LABIA [id number] [place] [address] [place] Lymphocytes/100 WBC (Bld) 17.6 % Normal [facility] Comment on above: Order Comment: Speci men Type: BLOOD SPECIMENOrdering Facility: [facility] Address: [address] [place] [address] Performed By: #### 5 7021-8 ####[facility] [id number] [place] [address] [place] MCH (RBC) [Entitic mass] 29.5 pg Normal 26.0-34.0 [facility] Comment on above: Order Comment: Speci men Type: BLOOD SPECIMENOrdering Facility: [facility] Address: [address] [place] [address] Performed By: #### 5 7021-8 ####[facility] LABIA [id number] [place] [address] [place] MCHC (RBC) [Mass/Vol] 32.8 g/dL Normal 30.5-36.0 [facility] Comment on above: Order Comment: Speci men Type: BLOOD SPECIMENOrdering Facility: [facility] Address: [address] [place] [address] Performed By: #### 5 7021-8 ####[facility] LABIA [id number] [place] [address] [place] MCV (RBC) [Entitic vol] 89.7 fL Normal 80.0-100.0 [facility] Comment on above: Order Comment: Speci men Type: BLOOD SPECIMENOrdering Facility: [facility] Address: [address] [place] [address] Performed By: #### 5 7021-8 ####[facility] LABCLIA [id number] [facility] [address] [place] Monocytes (Bld) [#/Vol] 1.29 10*3/uL High <0.87 [facility] Comment on above: Order Comment: Speci men Type: BLOOD SPECIMENOrdering Facility: [facility] Address: [address] [place] [address] Performed By: #### 5 7021-8 ####[facility] LABCLIA [id number] [place] [address] [place] Monocytes/100 WBC (Bld) 15.3 % Normal [facility] Comment on above: Order Comment: Speci men Type: BLOOD SPECIMENOrdering Facility: [facility] Address: [address] [place] [address] Performed By: #### 5 7021-8 ####[facility] LABCLIA [id number] [place] [address] [place] Neutrophils (Bld) [#/Vol] 5.34 10*3/uL Normal 1.45-7.50 [facility] Comment on above: Order Comment: Speci men Type: BLOOD SPECIMENOrdering Facility: [facility] Address: [address] [place] [address] Performed By: #### 5 7021-8 ####[facility] LABCLIA [id number] [place] [address] [place] Neutrophils/100 WBC (Bld) 63.2 % Normal [facility] Comment on above: Order Comment: Speci men Type: BLOOD SPECIMENOrdering Facility: [facility] Address: [address] [place] [address] Performed By: #### 5 7021-8 ####[facility] LABCLIA [id number] [place] [address] [place] Nucleated RBC (Bld) [#/Vol] 10*3/uL Normal <0.01 [facility] Comment on above: Order Comment: Speci men Type: BLOOD SPECIMENOrdering Facility: [facility] Address: [address] [place] [address] Performed By: #### 5 7021-8 ####[facility] LABIA [id number] [place] [address] [place] Nucleated RBC/100 WBC (Bld) [Ratio] 0.0 /100 WBC Normal [facility] Comment on above: Order Comment: Speci men Type: BLOOD SPECIMENOrdering Facility: [facility] Address: [address] [place] [address] Performed By: #### 5 7021-8 ####[facility] LABIA [id number] [place] [address] [place] Platelet mean volume (Bld) [Entitic vol] 10.6 fL Normal 9.0-12.7 [facility] Comment on above: Order Comment: Speci men Type: BLOOD SPECIMENOrdering Facility: [facility] Address: [address] [place] [address] Performed By: #### 5 7021-8 ####[facility] LABIA [id number] [place] [address] [place] Platelets (Bld) [#/Vol] 270 10*3/uL Normal 150-400 [facility] Comment on above: Order Comment: Speci men Type: BLOOD SPECIMENOrdering Facility: [facility] Address: [address] [place] [address] Performed By: #### 5 7021-8 ####[facility] LABIA [id number] [place] [address] [place] RBC (Bld) [#/Vol] 4.48 10*6/uL Normal 4.20-6.00 [facility] Comment on above: Order Comment: Speci men Type: BLOOD SPECIMENOrdering Facility: [facility] Address: [address] [place] [address] [place] [address] Performed By: #### 5 7021-8 ####[facility] LABCLIA [id number] [address] [address] [place] WBC (Bld) [#/Vol] 8.45 10*3/uL Normal 3.70-11.00 [facility] Comment on above: Order Comment: Speci men Type: BLOOD SPECIMENOrdering Facility: [facility] Address: [address] [place] [id number] Performed By: #### 5 7021-8 ####[facility] LABCLIA [id number] [place] [id number] [place] CNOVon 10-02-2023 CNOV Office Visit (FAMPWS ) ----- BONNIE MARTINEZ ([id number]) 1955 M Date Time Provider Department 10/02/23 10:00 AM JUSTINE LEARY During your visit today, we recorded the following information about you: Pulse Respiration Blood pressure Weight 77/minute 16/minute 136/90 93 kg Justine Leary APRN.[employer] 10/02/2023 11:46 AM Signed This is a 67 year old male who presents today with: Patient presents with: Acute Visit: Blood in urine HISTORY OF PRESENT ILLNESS: Bonnie Maria Ines Martinez is a 67 year old male. Patient presents with: Acute Visit: Blood in urine Here in the office for blood in the urine. Started about 6 months ago, randomly in the morning noticed. Noticed brown colored urine last and again Sunday. Had some low back pain the week prior which seemed to resolve. No history of kidney stones that he is aware of. Refers that night had some difficulty getting urine stream started but seemed to resolve by Sunday. No fever or chills. History of Elevated PSA in the past. 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 No current facility-administered medications for this visit. FAMILY HISTORY Problem Relation Age of Onset Arthritis Mother other (Larynx cancer) Father other (hyperlipidemia) Father Social History Tobacco Use Smoking status: Never Smokeless tobacco: Never Vaping Use Vaping Use: Never used Substance Use Topics Alcohol use: Yes Comment: rarely Drug use: Never REVIEW OF SYSTEMS GENERAL: No weight loss, malaise or fevers/chills HEENT: Negative for frequent or significant headaches, No changes in hearing or vision. NECK: Negative for lumps, goiter, pain and significant neck swelling RESPIRATORY: Negative for cough, hemoptysis, wheezing, dyspnea or shortness of breath CARDIOVASCULAR: Negative for chest pain, leg swelling, orthopnea, or palpitations GI: No nausea, vomiting, or diarrhea/constipation. No hematochezia/melena. No heartburn or reflux symptoms. : + Dark Urine/Flank Pain MUSCULOSKELETAL: Negative for joint pain or swelling. SKIN: Negative for lesions, rash, and itching ENDOCRINE: Negative for cold or heat intolerance, polyuria, polydipsia and goiter NEURO: No history of headaches, syncope, paralysis, seizures or tremors MOOD: Negative for depression, anxiety, or suicidal ideation. EXAM: BP 136/90 Pulse 77 Resp 16 Wt 93 kg (205 lb 0.4 oz) SpO2 97% BMI 31.62 kg/m? PHYSICAL EXAM: General Appearance: Well appearing, alert, in no acute distress, well-hydrated, well nourished. Skin: Skin color, texture, turgor normal, no suspicious rashes or lesions. Head: Normocephalic, no masses, lesions, tenderness or abnormalities. Eyes: Anicteric sclera. Extraocular movements are intact. Lungs: Lungs clear to auscultation. No wheezing, rhonchi, rales. Heart: RRR without murmur, gallop, or rubs. No ectopy. Abdomen: Normal abdominal exam, Abdomen soft, non-tender. Bowel sounds normal. No masses, organomegaly. Extremities: No deformities, edema, skin discoloration, clubbing or cyanosis. Good capillary refill. Peripheral Pulses: Normal, Capillary refill <2secs, strong peripheral pulses, Pulses palpable. Neurologic: Gait normal. Sensation grossly intact. UA: + Trace blood ASSESSMENT/PLAN: 1. History of flank pain - ICD9: V13.89, ICD10: Z87.898 (primary diagnosis) - Get labs and US completed - Urine will be sent out for Micro and culture. - Instructed to stay well hydrated - Contact the office with any worsening symptoms. - US KIDNEY/BLADDER - COMPREHENSIVE METABOLIC PANEL - COMPLETE BLOOD COUNT AND DIFFERENTIAL - URINALYSIS, WITH MICROSCOPIC - URINE CULTURE 2. Dark urine - ICD9: 791.9, ICD10: R82.998 - Same plan as #1. 3. Elevated PSA - ICD9: 790.93, ICD10: R97.20 - PROSTATE SPECIFIC ANTIGEN, FREE Follow-up pending test results or sooner as needed. Discussed treatment plan and patient voices understanding. Patient's questions answered appropriately. Medications and potential side effects were discussed and patient voices understanding. Justine Leary APRN.[employer] This note was partially generated using [employer] voice recognition system. Note was (more content not included)... Normal [facility] Comprehensive metabolic 2000 panelon 10-02-2023 Albumin [Mass/Vol] 4.1 g/dL 3.9 - 4.9 g/dL [facility] ALP [Catalytic activity/Vol] 64 U/L 38 - 113 U/L [facility] ALT [Catalytic activity/Vol] 20 U/L 10 - 54 U/L [facility] Anion gap [Moles/Vol] 12 mmol/L 8 - 15 mmol/L [facility] AST [Catalytic activity/Vol] 22 U/L 14 - 40 U/L [facility] Bilirubin [Mass/Vol] 0.4 mg/dL 0.2 - 1 .3 mg/dL [facility] Calcium [Mass/Vol] 9.7 mg/dL 8.5 - 10. 2 mg/dL [facility] Chloride [Moles/Vol] 101 mmol/L 98 - 10 7 mmol/L [facility] CO2 [Moles/Vol] 23 mmol/L 22 - 30 mmol/L [facility] Creatinine [Mass/Vol] 1.25 mg/dL High 0.73 - 1.22 mg/dL [facility] GFR/1.73 sq M.predicted among non-blacks MDRD (S/P/Bld) [Vol rate/Area] 64 mL/min/{1.73_m2} - PINF [facility] Comment on above: Estimated Glomerular Filtration Rate (eGFR) is calculated using the 2020 CKD-EPI creatinine equation. This equation utilizes serum creatinine, sex, and age as parameters. The creatinine assay has traceable calibration to isotope dilution-mass spectrometry. Refer to KDIGO guidelines for clinical interpretation. In patients with unstable renal function, e.g. those with acute kidney injury, the eGFR may not accurately reflect actual GFR. Glucose [Mass/Vol] 109 mg/dL High 74 - 99 mg/dL [facility] Comment on above: The [place] Diab[employer] s Association (ADA) provides guidance for cutoff values for fasting glucose and random glucose. The ADA defines fasting as no caloric intake for at least 8 hours. Fasting plasma glucose results between 100 to 125 mg/dL indicate increased risk for diabetes (prediabetes). Fasting plasma glucose results greater than or equal to 126 mg/dL meet the criteria for diagnosis of diabetes. In the absence of unequivocal hyperglycemia, results should be confirmed by repeat testing. In a patient with classic symptoms of hyperglycemia or hyperglycemic crisis, random plasma glucose results greater than or equal to 200 mg/dL meet the criteria for diagnosis of diabetes. Reference: Standards of Medical Care in Diabetes 2016, [place] Diabetes Association. Diabetes Care. 2016.39(Suppl 1). Interpretation and review of laboratory results Abnormal [facility] Potassium [Moles/Vol] 4.3 mmol/L 3.7 - 5.1 mmol/L [facility] Protein [Mass/Vol] 8.5 g/dL High 6.3 - 8.0 g/dL [facility] Sodium [Moles/Vol] 136 mmol/L 136 - 144 mmol/L [facility] Urea nitrogen [Mass/Vol] 14 mg/dL 9 - 24 mg/dL [facility] Albumin [Mass/Vol] 4.1 g/dL Normal 3.9-4.9 [facility] Comment on above: Order Comment: Speci men Type: BLOOD SPECIMENOrdering Facility: [facility] Address: [address] [place] [address] Performed By: #### 1 0886-0, ####[facility] LABCLIA [id number] [place] [address] [place] ALP [Catalytic activity/Vol] 64 U/L Normal 38-113 [facility] Comment on above: Order Comment: Speci men Type: BLOOD SPECIMENOrdering Facility: [facility] Address: [address] [place] [address] Performed By: #### 1 0886-0, ####[facility] LABCLIA [id number] [place] [address] [place] ALT [Catalytic activity/Vol] 20 U/L Normal 10-54 [facility] Comment on above: Order Comment: Speci men Type: BLOOD SPECIMENOrdering Facility: [facility] Address: [address] [place] [address] Performed By: #### 1 0886-0, ####[facility] LABCLIA [id number] [place] [address] [place] Anion gap [Moles/Vol] 12 mmol/L Normal 8-15 [facility] Comment on above: Order Comment: Speci men Type: BLOOD SPECIMENOrdering Facility: [facility] Address: [address] [place] [address] Performed By: #### 1 0886-0, ####[facility] LABCLIA [id number] [place] [address] [place] AST [Catalytic activity/Vol] 22 U/L Normal 14-40 [facility] Comment on above: Order Comment: Speci men Type: BLOOD SPECIMENOrdering Facility: [facility] Address: [address] [place] [address] Performed By: #### 1 0886-0, ####[facility] LABCLIA [id number] [place] [address] [place] Bilirubin [Mass/Vol] 0.4 mg/dL Normal 0.2-1.3 [facility] Comment on above: Order Comment: Speci men Type: BLOOD SPECIMENOrdering Facility: [facility] Address: [address] [place] [address] Performed By: #### 1 0886-0, ####[facility] LABCLIA [id number] [place] [address] [place] Calcium [Mass/Vol] 9.7 mg/dL Normal 8.5-10.2 [facility] Comment on above: Order Comment: Speci men Type: BLOOD SPECIMENOrdering Facility: [facility] Address: [address] [place] [address] Performed By: #### 1 0886-0, ####[facility] LABCLIA [id number] [place] [address] [place] Chloride [Moles/Vol] 101 mmol/L Normal 98-107 [facility] Comment on above: Order Comment: Speci men Type: BLOOD SPECIMENOrdering Facility: [facility] Address: [address] [place] [address] Performed By: #### 1 0886-0, ####[facility] LABCLIA [id number] [place] [address] [place] CO2 [Moles/Vol] 23 mmol/L Normal 22-30 [facility] Comment on above: Order Comment: Speci men Type: BLOOD SPECIMENOrdering Facility: [facility] Address: [address] [place] [address] Performed By: #### 1 0886-0, 87024-7 ####[facility] LABCLIA [id number] [place] [address] [place] Creatinine [Mass/Vol] 1.25 mg/dL High 0.73-1.22 [facility] Comment on above: Order Comment: Yinka montesinos Type: BLOOD SPECIMENOrdering Facility: [facility] Address: [address] [place] [address] Performed By: #### 1 0886-0, ####[facility] LABIA [id number] [place] [address] [place] Creatinine and Glomerular filtration rate.predicted panel (S/P/Bld) 64 mL/min/1.73m??? Normal >=60 [facility] Comment on above: Order Comment: Yinka montesinos Type: BLOOD SPECIMENOrdering Facility: [facility] Address: [address] [place] [address] Result Comment: Yue mated Glomerular Filtration Rate (eGFR) is calculated using the 2020 CKD-EPI creatinine equation. This equation utilizes serum creatinine, sex, and age as parameters. The creatinine assay has traceable calibration to isotope dilution-mass spectrometry. Refer to KDIGO guidelines for clinical interpretation. In patients with unstable renal function, e.g. those with acute kidney injury, the eGFR may not accurately reflect actual GFR. Performed By: #### 1 0886-0, ####[facility] LABIA [id number] [place] [address] [place] Glucose [Mass/Vol] 109 mg/dL High 74-99 [facility] Comment on above: Order Comment: Yinka montesinos Type: BLOOD SPECIMENOrdering Facility: [facility] Address: [address] [place] [address] Result Comment: The [place] Diabetes Association (ADA) provides guidance for cutoff values for fasting glucose and random glucose. The ADA defines fasting as no caloric intake for at least 8 hours. Fasting plasma glucose results between 100 to 125 mg/dL indicate increased risk for diabetes (prediabetes). Fasting plasma glucose results greater than or equal to 126 mg/dL meet the criteria for diagnosis of diabetes. In the absence of unequivocal hyperglycemia, results should be confirmed by repeat testing. In a patient with classic symptoms of hyperglycemia or hyperglycemic crisis, random plasma glucose results greater than or equal to 200 mg/dL meet the criteria for diagnosis of diabetes. Reference: Standards of Medical Care in Diabetes 2016, [place] Diabetes [employer]. Diabetes Care. 2016.39(Suppl 1). Performed By: #### 1 0886-0, ####[facility] LABCLIA [id number] [place] [address] [place] Potassium [Moles/Vol] 4.3 mmol/L Normal 3.7-5.1 [facility] Comment on above: Order Comment: Speci men Type: BLOOD SPECIMENOrdering Facility: [facility] Address: [address] [place] [address] Performed By: #### 1 0886-0, ####[facility] LABCLIA [id number] [place] [address] [place] Protein [Mass/Vol] 8.5 g/dL High 6.3-8.0 [facility] Comment on above: Order Comment: Speci men Type: BLOOD SPECIMENOrdering Facility: [facility] Address: [address] [place] [address] Performed By: #### 1 0886-0, ####[facility] LABCLIA [id number] [place] [address] [place] Sodium [Moles/Vol] 136 mmol/L Normal 136-144 [facility] Comment on above: Order Comment: Speci men Type: BLOOD SPECIMENOrdering Facility: [facility] Address: [address] [place] [address] Performed By: #### 1 0886-0, ####[facility] LABCLIA [id number] [place] [id number] [place] Urea nitrogen [Mass/Vol] 14 mg/dL Normal 9-24 [facility] Comment on above: Order Comment: Speci men Type: BLOOD SPECIMENOrdering Facility: [facility] Address: [address] [place] [address] Performed By: #### 1 0886-0, 13630-1 ####[facility] LABCLIA [id number] [place] [id number] [address] [place] Free PSA [Mass/Vol]on 2023 Free PSA/Total PSA [Mass fraction] 17 % [facility] Comment on above: Total and free PSA t est methodology used is the Electrochemiluminescence Immunoassay by [employer]. Total or free PSA values by differing methodologies cannot be interchanged. The below table lists the probability of finding prostate cancer upon needle biopsy, for men 50 years or older and total PSA concentrations from 4.0-10.0 ng/mL. Results should be interpreted within the broader clinical context. Free PSA(%) 50-59 years 60-69 years >69 years <11 49.2% 57.5% 64.5% 11-18 26.9% 33.9% 40.8% 19-25 18.3% 23.9% 29.7% >25 9.1% 12.2% 15.8% Interpretation and review of laboratory results Abnormal [facility] Prostate specific Ag [Mass/Vol] 7.55 ng/mL High NINF - 2.60 ng/mL [facility] Comment on above: Total PSA test metho dology used is the Electrochemiluminescence Immunoassay by [employer]. Total PSA values by differing methodologies cannot be interchanged. For an individual patient, the significance of a PSA level should be interpreted in a broad clinical context, including age, race, family history, digital rectal exam, prostate size, results of prior testing (prostate biopsy, free PSA, PCA3), and use of 5-alpha reductase inhibitors. Considering the high incidence of asymptomatic cancer in the general population that may not pose an ultimate risk to a patient, the decision to recommend urological evaluation or prostate biopsy should be individualized after consideration of all these factors. REFERENCE: Lacho Cook M.D., M.P.H., Diogo Sevilla M.D., Ph.D., Missael Price M.D., Myrna Zavaleta M.P.H., Anabela Jade Sc.D. Effect of Verification Bias on Screening for Prostate Cancer by Measurement of Prostatic Specific Antigen. N Engl J Med 2003,349:335-42. [facility] Free PSA/Total PSA [Mass fraction] 17 % Normal [facility] Comment on above: Order Comment: Speci men Type: BLOOD SPECIMENOrdering Facility: [facility] Address: [address] [place] [address] Result Comment: Tota l and free PSA test methodology used is the Electrochemiluminescence Immunoassay by [employer]. Total or free PSA values by differing methodologies cannot be interchanged. The below table lists the probability of finding prostate cancer upon needle biopsy, for men 50 years or older and total PSA concentrations from 4.0-10.0 ng/mL. Results should be interpreted within the broader clinical context. Free PSA(%) 50-59 years 60-69 years >69 years <11 49.2% 57.5% 64.5% 11-18 26.9% 33.9% 40.8% 19-25 18.3% 23.9% 29.7% >25 9.1% 12.2% 15.8% Performed By: #### 1 0886-0, 35249-7 ####[facility] LABCLIA [id number] [place] [address] [place] Prostate specific Ag [Mass/Vol] 7.55 ng/mL High <2.60 [facility] Comment on above: Order Comment: Speci men Type: BLOOD SPECIMENOrdering Facility: [facility] Address: [address] [place] [address] Result Comment: Tota l PSA test methodology used is the Electrochemiluminescence Immunoassay by [employer]. Total PSA values by differing methodologies cannot be interchanged. For an individual patient, the significance of a PSA level should be interpreted in a broad clinical context, including age, race, family history, digital rectal exam, prostate size, results of prior testing (prostate biopsy, free PSA, PCA3), and use of 5-alpha reductase inhibitors. Considering the high incidence of asymptomatic cancer in the general population that may not pose an ultimate risk to a patient, the decision to recommend urological evaluation or prostate biopsy should be individualized after consideration of all these factors. REFERENCE: Lacho Coko M.D., M.P.H., Diogo Sevilla M.D., Ph.D., Missael Price M.D., Myrna Zavaleta M.P.H., Anabela Jade Sc.D. Effect of Verification Bias on Screening for Prostate Cancer by Measurement of Prostatic Specific Antigen. N Engl J Med 2003,349:335-42. Performed By: #### 1 0886-0, 01224-6 ####[facility] LABCLIA [id number] [place] [address] [place] UA DIP, URINE (POC)on 2023 BILIRUBIN UA (POCT) Negative Negative [facility] CLARITY UA (POCT) Clear [facility] COLOR UA (POCT) Yellow [facility] GLUCOSE UA (POCT) Negative Negative mg/dL [facility] Hemoglobin Ql (U) Trace-lysed Abnormal Negative [facility] Interpretation and review of laboratory results Abnormal [facility] KETONE UA (POCT) Negative Negative mg/dL [facility] LEUKOCYTES UA (POCT) Negative Negative [facility] NITRITE UA (POCT) Negative Negative [facility] PH UA (POCT) 6.0 4.5 - 8.0 [facility] Protein Ql (U) Negative Negative mg/dL [facility] SPECIFIC GRAVITY UA (POCT) 1.015 1.005 - 1.030 [facility] UROBILINOGEN UA (POCT) 0.2 Normal E.U./dL [facility] Location:[address], [id number] [place] [address] POINT OF CARE [facility] Urinalysis complete panel (U )on 10-02-2023 Bacteria LM.HPF (Urine sed) [#/Area] Negative Normal Negative [facility] Comment on above: Order Comment: Speci men Type: URINE SPECIMENOrdering Facility: [facility] Address: [address] [place] [address] Performed By: #### 2 4356-8 ####[facility] LABCLIA [id number] [place] [address] [place] Bilirubin Ql (U) Negative Normal Negative [facility] Comment on above: Order Comment: Speci men Type: URINE SPECIMENOrdering Facility: [facility] Address: [address] [id number] Performed By: #### 2 4356-8 ####[facility] LABCLIA [id number] [place] [address] [place] Clarity (Unsp spec) Clear Normal Clear [facility] Comment on above: Order Comment: Speci men Type: URINE SPECIMENOrdering Facility: [facility] Address: [address] [place] [address] Performed By: #### 2 4356-8 ####[facility] LABIA [id number] [place] [address] [place] Color (U) Yellow Normal Yellow [facility] Comment on above: Order Comment: Speci men Type: URINE SPECIMENOrdering Facility: [facility] Address: [address] [place] [address] Performed By: #### 2 4356-8 ####[facility] LABIA [id number] [place] [address] [place] Epithelial cells LM.HPF (Urine sed) [#/Area] None Seen Normal [facility] Comment on above: Order Comment: Speci men Type: URINE SPECIMENOrdering Facility: [facility] Address: [address] [place] [address] Performed By: #### 2 4356-8 ####[facility] LABIA [id number] [place] [address] [place] Glucose Test strip (U) [Mass/Vol] Negative Normal Negative [facility] Comment on above: Order Comment: Speci men Type: URINE SPECIMENOrdering Facility: [facility] Address: [address] [place] [address] Performed By: #### 2 4356-8 ####[facility] LABCLIA [id number] [place] [address] [place] Hemoglobin Ql (U) Negative Normal Negative [facility] Comment on above: Order Comment: Speci men Type: URINE SPECIMENOrdering Facility: [facility] Address: [address] [place] [address] Performed By: #### 2 4356-8 ####[facility] LABCLIA [id number] [place] [address] [place] Hyaline casts (Urine sed) [#/Area] 0 /[LPF] Normal 0 /LPF [facility] Comment on above: Order Comment: Speci men Type: URINE SPECIMENOrdering Facility: [facility] Address: [address] [place] [address] Performed By: #### 2 4356-8 ####[facility] LABCLIA [id number] [place] [address] [place] Ketones Ql (U) Negative Normal Negative [facility] Comment on above: Order Comment: Speci men Type: URINE SPECIMENOrdering Facility: [facility] Address: [address] [place] [address] Performed By: #### 2 4356-8 ####[facility] LABCLIA [id number] [place] [address] [place] Leukocyte esterase Test strip Ql (U) Negative Normal Negative [facility] Comment on above: Order Comment: Speci men Type: URINE SPECIMENOrdering Facility: [facility] Address: [address] [place] [address] Performed By: #### 2 4356-8 ####[facility] LABCLIA [id number] [place] [address] [place] Nitrite Ql (U) Negative Normal Negative [facility] Comment on above: Order Comment: Speci men Type: URINE SPECIMENOrdering Facility: [facility] Address: [address] [place] [address] Performed By: #### 2 4356-8 ####[facility] LABIA [id number] [place] [address] [place] pH (U) 6.0 [pH] Normal <8.5 [facility] Comment on above: Order Comment: Speci men Type: URINE SPECIMENOrdering Facility: [facility] Address: [address] [place] [address] Performed By: #### 2 4356-8 ####[facility] LABIA [id number] [place] [address] [place] Protein (U) [Mass/Vol] Negative Normal Negative [facility] Comment on above: Order Comment: Speci men Type: URINE SPECIMENOrdering Facility: [facility] Address: [address] [place] [address] Performed By: #### 2 4356-8 ####[facility] LABIA [id number] [place] [address] [place] RBC LM.HPF (Urine sed) [#/Area] 0-2 /HPF Normal 0-2 /HPF [facility] Comment on above: Order Comment: Speci men Type: URINE SPECIMENOrdering Facility: [facility] Address: [address] [place] [address] Performed By: #### 2 4356-8 ####[facility] LABIA [id number] [place] [address] [place] Specific gravity (U) [Rel density] 1.013 Normal 1.005-1.03 0 [facility] Comment on above: Order Comment: Speci men Type: URINE SPECIMENOrdering Facility: [facility] Address: [address] [place] [address] Performed By: #### 2 4356-8 ####[facility] LABIA [id number] [place] [address] [place] Urobilinogen Ql (U) 0.2 EU/dL Normal 0.2-1.0 EU/dL [facility] Comment on above: Order Comment: Speci men Type: URINE SPECIMENOrdering Facility: [facility] Address: [address] [place] [address] Performed By: #### 2 4356-8 ####[facility] LABIA [id number] [place] [address] [place] WBC LM.HPF (Urine sed) [#/Area] 0-5 /HPF Normal 0-5 /HPF [facility] Comment on above: Order Comment: Speci men Type: URINE SPECIMENOrdering Facility: [facility] Address: [address] [place] [address] Performed By: #### 2 4356-8 ####[facility] LABIA [id number] [address] [place] [facility] 09-17-2023 [facility] Telephone ([facility]) ----- BONNIE MARTINEZ ([id number]) 1955 Date Time Provider Department 09/17/23 JUSTINE LEARY [facility] During your visit today, we recorded the following information about you: Justine Leary APRN.[employer] 09/17/2023 7:07 AM Signed Can you please call the patient and let him know that I reviewed his x-ray results. IMPRESSION IMPRESSION: Mild degenerative changes at the hips with no acute fractures I would recommend that he continue supportive care at home, may use NSAIDs as needed for pain/inflammation. He may consider a once daily anti-inflammatory such as meloxicam. If pain does not improve I would recommend a consult with orthopedics. Please let me know if he has any questions. Thank you. Justine Leary APRN.Jesse Gaytan LPN 09/17/2023 8:51 AM Signed Patient notified of results, verbalizes understanding of instructions. 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] 07/05/2010 Tendonitis, Achilles, left [M76.62] 02/06/2011 Pure hypercholesterolemia [E78.00] 05/31/2015 Nonintractable headache [R51.9] 05/31/2015 Conductive hearing loss, bilateral [H90.0] 09/23/2020 DDD (degenerative disc disease), cervical [M50.*04/04/2023 Numbness of hand [R20.0] 04/04/2023 Acute pain of right shoulder [M25.511] 04/04/2023 Chronic neck pain [M54.2, G89.29] 04/04/2023 Encounter Status:Closed by JESSE GONZALEZ on 09/17/23 [facility] Aishwarya 09-14-2023 [facility] Telephone ([facility]) ----- BONNIE MARTINEZ ([id number]) 1955 Date Time Provider Department 09/14/23 JUSTINE LEARY During your visit today, we recorded the following information about you: Justine Leary APRN.EUSEBIO 09/14/2023 7:56 AM Signed Can you please call the patient and let him know that I reviewed his knee x-ray results. X-ray showed no fractures, there was bilateral anterior tibial tuberosity enthesophytes, this is consistent with Tri slaughters disease. This is usually seen with children but can affect adults as well. We treat this with RICE therapy, rest, ice, compression, elevation. NSAIDs are used to reduce inflammation, he may use [id number] or consider taking a once a day such as meloxicam. Physical therapy may be helpful to work on leg muscles. If no improvement I recommend a consult with orthopedics. Please let me know what he prefers regarding treatment. Thank you. Hip xray results are still pending Justine Leary APRN.Jesse Gaytan LPN 09/14/2023 8:38 AM Signed Patient notified of results, verbalizes understanding of instructions. 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] 07/05/2010 Tendonitis, Achilles, left [M76.62] 02/06/2011 Pure hypercholesterolemia [E78.00] 05/31/2015 Nonintractable headache [R51.9] 05/31/2015 Conductive hearing loss, bilateral [H90.0] 09/23/2020 DDD (degenerative disc disease), cervical [M50.*04/04/2023 Numbness of hand [R20.0] 04/04/2023 Acute pain of right shoulder [M25.511] 04/04/2023 Chronic neck pain [M54.2, G89.29] 04/04/2023 Encounter Status:Closed by JESSE GONZALEZ on 09/14/23 Normal [facility] XR HIP BILATERAL 5V PEL/AP/L AT EACH HIPon 09-14-2023 IMPRESSION: Mild degenerative changes at the hips with no acute fractures seen Lead Tinner: PSCB Transcribe Date/Time: Sep 14 2023 7:10P Dictated by : MIRACLE VARGAS MD This examination was interpreted and the report reviewed and electronically signed by: MIRACLE VARGAS MD on Sep 14 2023 7:11PM [facility] DIVISION OF RADIOLOGY * * *Final Report* * * DATE OF EXAM: Sep 12 2023 1:56PM WOX [id number] - XR HIP ROSEY 5V PEL+ AP/LAT EA HIP / PROCEDURE REASON: multiple diagnoses * * * * Physician Interpretation * * * * XR HIP ROSEY 5V PEL+ AP/LAT EA HIP PROVIDED HISTORY: Bilateral hip pain Bilateral hip pain COMPARISON: No previous similar exams are available for comparison TECHNIQUE: AP pelvis. 2 views of right hip and 2 views of left hip RESULT: Pelvic ring appears intact. Hip joints appear symmetrical with mild subchondral sclerosis present. No acute fracture or dislocation is seen at the right hip. No acute fracture or dislocation is seen at the left hip. DIVISION OF RADIOLOGY Provider, [facility] Ailin avila Galena - 09/14/2023 * * *Final Report* * * DATE OF EXAM: Sep 12 2023 1:56PM WOX 5353 - XR HIP ROSEY 5V PEL+ AP/LAT EA HIP / PROCEDURE REASON: multiple diagnoses * * * * Physician Interpretation * * * * XR HIP ROSEY 5V PEL+ AP/LAT EA HIP PROVIDED HISTORY: Bilateral hip pain Bilateral hip pain COMPARISON: No previous similar exams are available for comparison TECHNIQUE: AP pelvis. 2 views of right hip and 2 views of left hip RESULT: Pelvic ring appears intact. Hip joints appear symmetrical with mild subchondral sclerosis present. No acute fracture or dislocation is seen at the right hip. No acute fracture or dislocation is seen at the left hip. IMPRESSION IMPRESSION: Mild degenerative changes at the hips with no acute fractures seen Lead Tinner: PSCKaleb Transcribe Date/Time: Sep 14 2023 7:10P Dictated by : MIRACLE VARGAS MD This examination was interpreted and the report reviewed and electronically signed by: MIRACLE VARGAS MD on Sep 14 2023 7:11PM EST [facility] XR Knee - bilateral 4 Viewso n 09-13-2023 IMPRESSION: No acute osseous abnormality. Lead Tinner: DEVANG Transcribe Date/Time: Sep 13 2023 8:04P Dictated by : OTIS MONTENEGRO DO This examination was interpreted and the report reviewed and electronically signed by: OTIS MONETNEGRO DO on Sep 13 2023 8:06PM EST DIVISION OF RADIOLOGY * * *Final Report* * * DATE OF EXAM: Sep 12 2023 1:56PM WOX [id number] - XR KNEE 4V AP/PA/LAT/MERCH ROSEY / PROCEDURE REASON: multiple diagnoses * * * * Physician Interpretation * * * * EXAMINATION: XR KNEE 4V AP/PA/LAT/MERCH ROSEY PATIENT/TECHNOLOGIST PROVIDED HISTORY: Anterior left knee pain below the patella when kneeling x 1 month without injury. CLINICAL INFORMATION: 67 years old Male with Pain in both knees, unspecified chronicity TECHNIQUE: XR KNEE 4V AP/PA/LAT/MERCH ROSEY Laterality: BILATERAL Number of different views (projections): 4 views of each knee. COMPARISON: Radiographs 12/28/2015 RESULT: No fracture. Joint spaces are maintained. No joint effusion. Bilateral anterior tibial tuberosity enthesophytes. DIVISION OF RADIOLOGY Provider, [facility] - 09/13/2023 * * *Final Report* * * DATE OF EXAM: Sep 12 2023 1:56PM WOX 5618 - XR KNEE 4V AP/PA/LAT/MERCH ROSEY / PROCEDURE REASON: multiple diagnoses * * * * Physician Interpretation * * * * EXAMINATION: XR KNEE 4V AP/PA/LAT/MERCH ROSEY PATIENT/TECHNOLOGIST PROVIDED HISTORY: Anterior left knee pain below the patella when kneeling x 1 month without injury. CLINICAL INFORMATION: 67 years old Male with Pain in both knees, unspecified chronicity TECHNIQUE: XR KNEE 4V AP/PA/LAT/MERCH ROSEY Laterality: BILATERAL Number of different views (projections): 4 views of each knee. COMPARISON: Radiographs 12/28/2015 RESULT: No fracture. Joint spaces are maintained. No joint effusion. Bilateral anterior tibial tuberosity enthesophytes. IMPRESSION IMPRESSION: No acute osseous abnormality. Lead Tinner: DEVANG Transcribe Date/Time: Sep 13 2023 8:04P Dictated by : OTIS MONTENEGRO DO This examination was interpreted and the report reviewed and electronically signed by: OTIS MONTENEGRO DO on Sep 13 2023 8:06PM EST [facility] XR Knee - bilateral 4 ViewsO rdered By: [facility] Provider on 09-13-2023 [facility] CNOVon 09-12-2023 CNOV Office Visit (FAMWS ) ----- JUAN,BONNIE Spann ([id number]) 1955 M Date Time Provider Department 09/12/23 1:20 PM JUSTINE LEARY During your visit today, we recorded the following information about you: Pulse Respiration Blood pressure Weight 89/minute 16/minute 126/78 93 kg Justine Leary APRN.CNP 09/12/2023 1:40 PM Signed This is a 67 year old male who presents today with: Patient presents with: Acute Visit: Bilat knees painful HISTORY OF PRESENT ILLNESS: Bonnie Martinez is a 67 year old male. Patient presents with: Acute Visit: Bilat knees painful Here in the office for bilateral knee and hip pain. No injury to the area. Patient reports kneeling down on carpet or a bed causes severe pain /10. Patient reports it started about 1 month ago. Getting off of the knee stops the pain. Denies pain with walking. 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 Refers when he had consult with orthopedics at that time he was too young for hip replacement. 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 PMH - PAST MEDICAL HISTORY OF DDD, PMH - PAST MEDICAL HISTORY OF 08/2008 fracture clavicel, ribs and right ankle Unspecified essential hypertension PAST SURGICAL HISTORY Procedure Laterality Date PAST SURGICAL HISTORY OF pilondal cyst PAST SURGICAL HISTORY OF right 4th and 5th injury-[facility] PAST SURGICAL HISTORY OF Right 1985 right 4th and 5th fingers repaired following injury ALLERGIES Erythromycin Base MEDICATIONS Current Outpatient Medications Medication Sig predniSONE (DELTASONE) 10 mg tablet 6 tabs po day 1, then 5 tabs day 2, 4 tabs day 3, 3 tabs day 4, 2 tabs day 5, 1 tab day 6. diclofenac, EC, (VOLTAREN) 75 mg EC tablet Take 1 tablet by mouth two times a day. FOR PAIN No current facility-administered medications for this visit. FAMILY HISTORY Problem Relation Age of Onset Arthritis Mother other (Larynx cancer) Father other (hyperlipidemia) Father Social History Tobacco Use Smoking status: Never Smokeless tobacco: Never Vaping Use Vaping Use: Never used Substance Use Topics Alcohol use: Yes Comment: rarely Drug use: Never REVIEW OF SYSTEMS GENERAL: No weight loss, malaise or fevers/chills HEENT: Negative for frequent or significant headaches, No changes in hearing or vision. NECK: Negative for lumps, goiter, pain and significant neck swelling RESPIRATORY: Negative for cough, hemoptysis, wheezing, dyspnea or shortness of breath CARDIOVASCULAR: Negative for chest pain, leg swelling, orthopnea, or palpitations GI: No nausea, vomiting, or diarrhea/constipation. No hematochezia/melena. No heartburn or reflux symptoms. : No history of dysuria, frequency or incontinence MUSCULOSKELETAL: + Bilateral knee/hip pain. SKIN: Negative for lesions, rash, and itching ENDOCRINE: Negative for cold or heat intolerance, polyuria, polydipsia and goiter NEURO: No history of headaches, syncope, paralysis, seizures or tremors MOOD: Negative for depression, anxiety, or suicidal ideation. EXAM: BP 126/78 Pulse 89 Resp 16 Wt 93 kg (205 lb) SpO2 97% BMI 31.61 kg/m? PHYSICAL EXAM: General Appearance: Well appearing, alert, in no acute distress, well-hydrated, well nourished. Skin: Skin color, texture, turgor normal, no suspicious rashes or lesions. Head: Normocephalic, no masses, lesions, tenderness or abnormalities. Eyes: Anicteric sclera. Extraocular movements are intact. Extremities: No deformities, edema, skin discoloration, clubbing or cyanosis. Good capillary refill. Musculoskeletal: + Full ROM of bilateral knees, no crepitus noted, protrusions noted bilaterally at the distal aspect of the patella. Similar to [place]-Schlatter's disease. Nontender with palpation, no edema noted. Negative valgus/varus and anterior drawer's test. Peripheral Pulses: Normal, Capillary refill <2secs, strong peripheral pulses, Pulses palpable. Neurologic: Gait normal. Reflexes normal and symmetric. Sensation grossly intact. ASSESSMENT/PLAN: 1. Pain in both knees, unspecified chronicity - ICD9: 719.46, ICD10: M25.561, M25.562 (primary diagnosis) - Get xray completed for further evaluation. - Continue supportive care at home. - XR KNEE GENERAL 4V AP BOTH/PA BOTH/LAT/MERC BILATERAL 2. Bilateral hip pain - ICD9: 719.45, ICD10: M25.551, M25.552 - Get x-ray completed - CONSULT TO ORTHOPAEDICS - XR HIP BILATERAL 5V PEL/AP/LAT EACH HIP Follow-up pending test results or sooner as needed. Discussed treatment plan and patient voices understanding. Patient's questions answered appropriately. Medications and potential side effects were discussed and patient voices unders (more content not included)... Normal [facility] No Panel Informationon 09-11 Radiology Study observation (narrative) [facility] XR HIP ROSEY 5V PEL+ AP/LAT EA HIPon 09-12-2023 XR HIP ROSEY 5V PEL+ AP/LAT EA HIP * * *Final Report* * * DATE OF EXAM: Sep 12 2023 1:56PM WOX [id number] - XR HIP ROSEY 5V PEL+ AP/LAT EA HIP / PROCEDURE REASON: multiple diagnoses * * * * Physician Interpretation * * * * XR HIP ROSEY 5V PEL+ AP/LAT EA HIP PROVIDED HISTORY: Bilateral hip pain Bilateral hip pain COMPARISON: No previous similar exams are available for comparison TECHNIQUE: AP pelvis. 2 views of right hip and 2 views of left hip RESULT: Pelvic ring appears intact. Hip joints appear symmetrical with mild subchondral sclerosis present. No acute fracture or dislocation is seen at the right hip. No acute fracture or dislocation is seen at the left hip. IMPRESSION: Mild degenerative changes at the hips with no acute fractures seen Lead Tinner: DEVANG Transcribe Date/Time: Sep 14 2023 7:10P Dictated by : MIRACLE VARGAS MD This examination was interpreted and the report reviewed and electronically signed by: MIRACLE VARGAS MD on Sep 14 2023 7:11PM EST [id number] Normal [facility] XR KNEE 4V AP/PA/LAT/MERCH B ILon 09-12-2023 XR KNEE 4V AP/PA/LAT/MERCH ROSEY * * *Final Report* * * DATE OF EXAM: Sep 12 2023 1:56PM WOX 5618 - XR KNEE 4V AP/PA/LAT/MERCH ROSEY / PROCEDURE REASON: multiple diagnoses * * * * Physician Interpretation * * * * EXAMINATION: XR KNEE 4V AP/PA/LAT/MERCH ROSEY PATIENT/TECHNOLOGIST PROVIDED HISTORY: Anterior left knee pain below the patella when kneeling x 1 month without injury. CLINICAL INFORMATION: 67 years old Male with Pain in both knees, unspecified chronicity TECHNIQUE: XR KNEE 4V AP/PA/LAT/MERCH ROSEY Laterality: BILATERAL Number of different views (projections): 4 views of each knee. COMPARISON: Radiographs 12/28/2015 RESULT: No fracture. Joint spaces are maintained. No joint effusion. Bilateral anterior tibial tuberosity enthesophytes. IMPRESSION: No acute osseous abnormality. Lead Tinner: [facility] Transcribe Date/Time: Sep 13 2023 8:04P Dictated by : OTIS MONTENEGRO DO This examination was interpreted and the report reviewed and electronically signed by: OTIS MONTENEGRO DO on Sep 13 2023 8:06PM EST [id number] Normal [facility] CNTHERAPYon 04-12-2023 CNTHERAPY OT/PT/Speech Visit ( PTWS) ----- BONNIE MARTINEZ ([id number]) 1955 M Date Time Provider Department 04/12/23 9:30 AM JOLENE ROMERO PTWS Date Time Provider Department Center 04/12/2023 9:30 AM [id number], MARIAH PTWS [place] Reason for Visit: PT Discharge [752] Primary Visit Diagnosis:Acute pain of right shoulder [M25.511] Other Visit Diagnosis:Chronic neck pain [M54.2, G89.29] Allergies As of Date: 04/12/2023 Noted Allergy Reaction ERYTHROMYCIN BASE 09/21/2008 8 - GI Upset Date Reviewed: 01/15/2023 Reviewed by: Jasmina Reyes PA-C - Fully Assessed Prescriptions as of 06/05/2023 - predniSONE (DELTASONE) 10 mg tablet 6 tabs po day 1, then 5 tabs day 2, 4 tabs day 3, 3 tabs day 4, 2 tabs day 5, 1 tab day 6. - diclofenac, EC, (VOLTAREN) 75 mg EC tablet Take 1 tablet by mouth two times a day. FOR PAIN Meds Comments as of 03/15/2018: Currently on no medications - uses OTC Sleep-Aid nightly (Benadryl) ----- Neonatal Nurse Practitioner: Addendum Therapy (PT/OT/Speech/Resp) ID: [id number] 04/12/2023 9:58 AM Author: JOLENE ROMERO Signed by JOLENE ROMERO DRINKING WATER TECHNICIAN on 04/12/2023 at 9:58 AM * * * This document replaces document [id number] * * * Document text: Program_ID:[id number] Access Code: [email or web address] URL: [email or web address] Date: 04-12-2023 Prepared By: Bel Renee Program Notes Exercises - Standing Shoulder Posterior Capsule Stretch - 1-2 x daily - 7 x weekly - 3 sets - 1 reps - Doorway Pec Stretch at 60 Degrees Abduction with Arm Straight - 1-2 x daily - 7 x weekly - 3 sets - 1 reps - Seated Gentle Upper Trapezius Stretch - 1 x daily - 7 x weekly - 1 sets - 3 reps - Standing Shoulder Flexion to 90 Degrees with Dumbbells - 2 x daily - 7 x weekly - 2 sets - 10 reps - Scaption with Dumbbells - 2 x daily - 7 x weekly - 2 sets - 10 reps - Shoulder Abduction with Dumbbells - Thumbs Up - 2 x daily - 7 x weekly - 2 sets - 10 reps - Shoulder External Rotation Reactive Isometrics - 2 x daily - 7 x weekly - 2 sets - 10 reps - Standing Shoulder Internal Rotation with Anchored Resistance - 2 x daily - 7 x weekly - 2 sets - 10 reps Normal [facility] THERAPY NTon 04-12-2023 THERAPY NT HNO ID: [id number] Author: JOLENE ROMERO PTA Service: ? Author Type: Loan Assistant Type: Therapy (PT/OT/Speech/Resp) Filed: 04/12/2023 09:38 Note Text: Program_ID:[id number] Access Code: [email or web address] URL: [email or web address] Date: 04-12-2023 Prepared By: Bel Renee Program Notes Exercises - Standing Shoulder Posterior Capsule Stretch - 1-2 x daily - 7 x weekly - 3 sets - 1 reps - Doorway Pec Stretch at 60 Degrees Abduction with Arm Straight - 1-2 x daily - 7 x weekly - 3 sets - 1 reps - Seated Gentle Upper Trapezius Stretch - 1 x daily - 7 x weekly - 1 sets - 3 reps - Seated Levator Scapulae Stretch - 1 x daily - 7 x weekly - 1 sets - 3 reps Normal [facility] CNTHERAPYon 04-10-2023 CNTHERAPY OT/PT/Speech Visit ( PTWS) ----- BONNIE MARTINEZ ([id number]) 1955 M Date Time Provider Department 04/10/23 3:00 PM BEL RENEE Date Time Provider Department [place] 04/10/2023 3:00 PM [id number] RENEE Reason for Visit: Physical Therapy [503] Primary Visit Diagnosis:Acute pain of right shoulder [M25.511] Other Visit Diagnosis:Chronic neck pain [M54.2, G89.29] Allergies As of Date: 04/10/2023 Noted Allergy Reaction ERYTHROMYCIN BASE 09/21/2008 8 - GI Upset Date Reviewed: 01/15/2023 Reviewed by: Jasmina Reyes PA-C - Fully Assessed Prescriptions as of 06/05/2023 - predniSONE (DELTASONE) 10 mg tablet 6 tabs po day 1, then 5 tabs day 2, 4 tabs day 3, 3 tabs day 4, 2 tabs day 5, 1 tab day 6. - diclofenac, EC, (VOLTAREN) 75 mg EC tablet Take 1 tablet by mouth two times a day. FOR PAIN Meds Comments as of 03/15/2018: Currently on no medications - uses OTC Sleep-Aid nightly (Benadryl) ----- Neonatal Nurse Practitioner: Addendum Therapy (PT/OT/Speech/Resp) ID: [id number] 04/10/2023 3:22 PM Author: BEL RENEE Signed by BEL RENEE PT on 04/10/2023 at 3:22 PM * * * This document replaces document [id number] * * * Document text: Program_ID:[id number] Access Code: [email or web address] URL: [email or web address] Date: 04-10-2023 Prepared By: Bel Renee Program Notes Exercises - Standing Shoulder Posterior Capsule Stretch - 1-2 x daily - 7 x weekly - 3 sets - 1 reps - Doorway Pec Stretch at 60 Degrees Abduction with Arm Straight - 1-2 x daily - 7 x weekly - 3 sets - 1 reps Normal [facility] THERAPY NTon 04-10-2023 THERAPY NT HNO ID: [id number] Author: BEL RENEE, PT Service: ? Author Type: Physical Therapist Type: Therapy (PT/OT/Speech/Resp) Filed: 04/10/2023 15:20 Note Text: Program_ID:[id number] Access Code: [email or web address] URL: [email or web address] Date: 04-10-2023 Prepared By: Bel Renee Program Notes Exercises - Standing Shoulder Posterior Capsule Stretch - 1-2 x daily - 7 x weekly - 3 sets - 1 reps Normal [facility] CNTHERAPYon 04-04-2023 CNTHERAPY OT/PT/Speech Visit ( PTWS) ----- BONNIE MARTINEZ ([id number]) 1955 M Date Time Provider Department 04/04/23 8:15 AM BEL RENEE PTWS Date Time Provider Department Center 04/04/2023 8:15 AM [id number] RENEE PTWS [place] Reason for Visit: PT [place] [747] Primary Visit Diagnosis:Numbness of hand [R20.0] Other Visit Diagnosis:DDD (degenerative disc disease), cervical [M50.30] Allergies As of Date: 04/04/2023 Noted Allergy Reaction ERYTHROMYCIN BASE 09/21/2008 8 - GI Upset Date Reviewed: 01/15/2023 Reviewed by: Jasmina Reyes PA-C - Fully Assessed Prescriptions as of 04/04/2023 - predniSONE (DELTASONE) 10 mg tablet 6 tabs po day 1, then 5 tabs day 2, 4 tabs day 3, 3 tabs day 4, 2 tabs day 5, 1 tab day 6. - diclofenac, EC, (VOLTAREN) 75 mg EC tablet Take 1 tablet by mouth two times a day. FOR PAIN Meds Comments as of 03/15/2018: Currently on no medications - uses OTC Sleep-Aid nightly (Benadryl) ----- Neonatal Nurse Practitioner: Addendum Therapy (PT/OT/Speech/Resp) ID: [id number] 04/04/2023 8:42 AM Author: BEL RENEE Signed by BEL RENEE PT on 04/04/2023 at 8:42 AM * * * This document replaces document [id number] * * * Document text: Program_ID:[id number] Access Code: [email or web address] URL: [email or web address] Date: 04-04-2023 Prepared By: Bel Renee Program Notes Exercises - Ulnar Nerve/Median Earle- Low Level - 3-5 x daily - 7 x weekly - 2 sets - 10 reps - Seated Scapular Retraction - 2-3 x daily - 7 x weekly - 3 sets - 15 reps - Doorway Pec Stretch at 60 Degrees Abduction with Arm Straight - 2-3 x daily - 7 x weekly - 3 sets - 1 reps Normal [facility] THERAPY NTon 04-04-2023 THERAPY NT HNO ID: [id number] Author: BEL RENEE PT Service: ? Author Type: Physical Therapist Type: Therapy (PT/OT/Speech/Resp) Filed: 04/04/2023 08:40 Note Text: Program_ID:[id number] Access Code: [email or web address] URL: [email or web address] Date: 04-04-2023 Prepared By: Bel Renee Program Notes Exercises - Ulnar Nerve/Median Earle- Low Level - 3-5 x daily - 7 x weekly - 2 sets - 10 reps Normal [facility] CNOVon 01-15-2023 CNOV Office Visit (ORTHWS ) ----- BONNIE MARTINEZ ([id number]) 1955 M Date Time Provider Department 01/15/23 11:00 AM JASMINA REYES During your visit today, we recorded the following information about you: Daria Jaramillo RN 01/15/2023 1:59 PM Signed Patient presents with: Right Shoulder - New: Right shoulder pain Referred by Thelma Leary APRN Xray 11/20/2022 Last seen by BP 02/24/2019 bilateral ulnar nerve neuropathy Patient states certain movements make his right shoulder pain go to a 10/10. Also states his left elbow has been bothering him - like it gets stuck. His fiance is here with him today. AMB ROOMING INTAKE FLOWSHEET DATA Pain Pain Level: 1 (certain movements 10/10) Pain Location: Shoulder-Right Description: Dull (10/10 sharp) Duration Amount of Time: 9 Duration Units: Months Frequency: Continuous Intervention/Comfort measure: Reposition DEBO Hammer Sondra, PA-C 01/15/2023 1:59 PM Signed Jasmina Reyes PA-C Department of Orthopaedics Orthopaedics [address] [place] [id number] Dept: [phone] Dept January 15, [address] Justine Leary for an opinion regarding right shoulder pain. My final recommendations will be communicated back to the requesting physician by way of shared Medical record or letter to requesting physician via US mail. CHIEF COMPLAINT: New of the Right Shoulder (Right shoulder pain/Referred by Thelma Leary APRN/Xrregulo 11/20/2022/Last seen by BP 02/24/2019 bilateral ulnar nerve neuropathy ) Mr. Bonnie Martinez is a 67 year old male who presents with pain in the right shoulder which has been bothering him for the past 6 months. No known injury. Pain is worse when he tries to reach behind his back or to reach overhead. Pain today is a 1 out of 10 aching but it can get as bad as a 10 out of 10. He is not taking any type of oral anti-inflammatory. Pain does not radiate down the arm. Has no issues with sleeping. He is right-hand dominant, he is retired, enjoys riding his motorcycle for long trips in the summer. He also complains of some numbness in both of his pinkies, mostly at night. He is also getting a snapping in his left elbow if he sits with the elbow bent for long periods of time and goes to straighten it. Normal EMG in 2019. He has known cervical disc disease. ASSESSMENT: M75.51 Bursitis of right shoulder (primary encounter diagnosis) M25.511 Acute pain of right shoulder M54.2, G89.29 Chronic neck pain R20.0 Numbness of hand M50.30 DDD (degenerative disc disease), cervical PLAN: Seems as though it is a little bit of right shoulder bursitis, we discussed getting him on an oral anti-inflammatory paired with an oral steroid. If pain persist he can follow-up we can try a right shoulder corticosteroid injection. Difficult to say whether he is getting numbness in his pinkies from ulnar neuropathy at the elbow or whether it is from his cervical disc disease. We will try some physical therapy for his neck, if the numbness persists we will get some ultrasounds of both elbows. Patient agrees to plan. Mr. Bonnie Martinez was advised as to contrast therapies and/or to take analgesics/anti-inflammat ories as needed and all contraindications were reviewed. OBJECTIVE: Mr. Bonnie Martinez is a pleasant 67 year old in no apparent distress. Gen:There were no vitals taken for this visit. nl development, obese, no deformities ENT: Normocephalic, normal hearing, moist mucosa CV: Pulses:Radial= 2+ and symmetric, capillary refill < 2 secs, no peripheral edema/varicosities Skin: no rash, bruising or lesions. Good turgor. Psych: cooperative and appropriate, alert and oriented x 3, good mood and affect. Musculoskeletal: Supple range of motion of the cervical spine without pain. Spurling signs are negative. No atrophy of the deltoid and shoulder musculature. Right shoulder is nontender to palpation over the SC joint, clavicle and AC joint. No tenderness to palpation over the posterior shoulder, nontender at anterior lateral corner of the shoulder and greater tuberosity. Mild tenderness at the bicipital groove and coracoid. Active range of motion is 165 degrees of forward elevation, 60 degrees external rotation, and internal rotation to the lower lumbar spine. Passive range of motion is 165 degrees, 60 degrees, respectively. No laxity with anterior and posterior stress. Negative Neer and positive Mcleod impingement signs. 5/5 strength with supraspinatus, infraspinatus and subscapularis. Sensation is intact in the axillary, radial, median and ulnar nerve distribution Imaging: IMPRESSION: Cervical spine degenerative changes with multilevel disc space narrowing and bilateral neural foraminal narrowing. Lead Tinner: [facility] Transcribe Date/Time: Nov 21 2022 11:36A Dictated by : KAYLI (more content not included)... Normal [facility] XR Cervical spine AP and Lat eral and obliqueon 11-21-2022 IMPRESSION: Cervical spine degenerative changes with multilevel disc space narrowing and bilateral neural foraminal narrowing. Lead Tinner: [facility] Transcribe Date/Time: Nov 21 2022 11:36A Dictated by : JEANNETTE TUCKER MD This examination was interpreted and the report reviewed and electronically signed by: JEANNETTE TUCKER MD on Nov 21 2022 11:43AM [facility] DIVISION OF RADIOLOGY * * *Final Report* * * DATE OF EXAM: Nov 20 2022 11:21AM WOX 5311 - XR CERVICAL 4V AP/LAT/OBL / PROCEDURE REASON: multiple diagnoses * * * * Physician Interpretation * * * * EXAM TITLE: XR CERVICAL 4V AP/LAT/OBL EXAM DATE/TIME: 11/20/2022 11:21 AM COMPARISON: None. CLINICAL INDICATION/HISTORY: Neck pain. TECHNIQUE: AP, lateral and bilateral views of the cervical spine are presented. FINDINGS: No fractures or subluxations are noted. C5-6 and C6-7 disc is then narrowing is demonstrated. There is mild to moderate osteophyte formation. Bilateral C5-6 and left C6-7 neural foraminal narrowing is demonstrated. Degenerative changes involving the bilateral Luschka joints. The prevertebral soft tissues are normal. DIVISION OF RADIOLOGY [facility] 11/21/2022 * * *Final Report* * * DATE OF EXAM: Nov 20 2022 11:21AM WOX 5311 - XR CERVICAL 4V AP/LAT/OBL / PROCEDURE REASON: multiple diagnoses * * * * Physician Interpretation * * * * EXAM TITLE: XR CERVICAL 4V AP/LAT/OBL EXAM DATE/TIME: 11/20/2022 11:21 AM COMPARISON: None. CLINICAL INDICATION/HISTORY: Neck pain. TECHNIQUE: AP, lateral and bilateral views of the cervical spine are presented. FINDINGS: No fractures or subluxations are noted. C5-6 and C6-7 disc is then narrowing is demonstrated. There is mild to moderate osteophyte formation. Bilateral C5-6 and left C6-7 neural foraminal narrowing is demonstrated. Degenerative changes involving the bilateral Luschka joints. The prevertebral soft tissues are normal. IMPRESSION IMPRESSION: Cervical spine degenerative changes with multilevel disc space narrowing and bilateral neural foraminal narrowing. Lead Tinner: [facility] Transcribe Date/Time: Nov 21 2022 11:36A Dictated by : JEANNETTE TUCKER MD This examination was interpreted and the report reviewed and electronically signed by: JEANNETTE TUCKER MD on Nov 21 2022 11:43AM [facility] XR Shoulder - right 3 Viewso n 11-21-2022 IMPRESSION: No acute osseous abnormality Lead Tinner: [facility] Transcribe Date/Time: Nov 21 2022 4:33P Dictated by : SHELIA HIGGINS MD This examination was interpreted and the report reviewed and electronically signed by: SHELIA HIGGINS MD on Nov 21 2022 4:34PM [facility] DIVISION OF RADIOLOGY * * *Final Report* * * DATE OF EXAM: Nov 20 2022 11:21AM WOX 5253 - XR SHLDR >/=3V AP/SHARA AP/OTHR RT / PROCEDURE REASON: Acute pain of right shoulder * * * * Physician Interpretation * * * * EXAMINATION: XR SHLDR >/=3V AP/SHARA AP/OTHR RT CLINICAL HISTORY: Right shoulder pain Technique: XR SHLDR >/=3V AP/SHARA AP/OTHR RT -- RIGHT with 3 views on 3 images Comparison: X-ray right shoulder 10/14/2008 RESULT: No acute fracture or dislocation. Joint spaces are maintained. DIVISION OF RADIOLOGY Provider, [facility] - 11/21/2022 * * *Final Report* * * DATE OF EXAM: Nov 20 2022 11:21AM WOX 5253 - XR SHLDR >/=3V AP/SHARA AP/OTHR RT / PROCEDURE REASON: Acute pain of right shoulder * * * * Physician Interpretation * * * * EXAMINATION: XR SHLDR >/=3V AP/SHARA AP/OTHR RT CLINICAL HISTORY: Right shoulder pain Technique: XR SHLDR >/=3V AP/SHARA AP/OTHR RT -- RIGHT with 3 views on 3 images Comparison: X-ray right shoulder 10/14/2008 RESULT: No acute fracture or dislocation. Joint spaces are maintained. IMPRESSION IMPRESSION: No acute osseous abnormality Lead Tinner: [facility] Transcribe Date/Time: Nov 21 2022 4:33P Dictated by : SHELIA HIGGINS MD This examination was interpreted and the report reviewed and electronically signed by: SHELIA HIGGINS MD on Nov 21 2022 4:34PM EST [facility] XR Shoulder - right 3 ViewsO rdered By: [facility] Provider on 11-21-2022 [facility] No Panel Informationon 11-20 Radiology Study observation (narrative) [facility] CBC WITH MANUAL DIFF (01590) Ordered By: Corporate Legal Intern on 06-24-2013 Basophils (Bld) [#/Vol] 0.0 {x10E3/uL} Normal 0.0-0.2 [facility] Work Phone: Comment on above: PATIENT WAS FASTINGP ERFORMED BY: JAMA [employer] Lwtdct3962 [facility] [id number] Information: [id number] Basophils/100 WBC (Bld) 0 % Normal 0-3 [facility] Work Phone: Comment on above: PATIENT WAS FASTINGP ERFORMED BY: [employer] Ffdeoc0799 Jimenez [facility] [id number] Information: [id number] Eosinophils (Bld) [#/Vol] 0.2 {x10E3/uL} Normal 0.0-0.4 [facility] Work Phone: Comment on above: PATIENT WAS FASTINGP ERFORMED BY: [employer] Wrdwxh3813 [facility] [id number] Information: [id number] Eosinophils/100 WBC (Bld) 3 % Normal 0-5 [facility] Work Phone: Comment on above: PATIENT WAS FASTINGP ERFORMED BY: [address] [id number] Information: [id number] Erythrocyte distribution width (RBC) [Ratio] 13.0 % Normal 12.3-15.4 [facility] Work Phone: Comment on above: PATIENT WAS FASTINGP ERFORMED BY: [address] [id number] Information: [id number] Hematocrit (Bld) [Volume fraction] 42.7 % Normal 37.5-51.0 [facility] Work Phone: Comment on above: PATIENT WAS FASTINGP ERFORMED BY: [address] [id number] Information: [id number] Hemoglobin (Bld) [Mass/Vol] 14.1 g/dL Normal 12.6-17.7 [facility] Work Phone: Comment on above: PATIENT WAS FASTINGP ERFORMED BY: [address] [id number] Information: [id number] Immature granulocytes (Bld) [#/Vol] 0.0 {x10E3/uL} Normal 0.0-0.1 [facility] Work Phone: Comment on above: PATIENT WAS FASTINGP ERFORMED BY: [address] [id number] Information: [id number] Immature granulocytes/100 WBC (Bld) 0 % Normal 0-2 [facility] Work Phone: Comment on above: PATIENT WAS FASTINGP ERFORMED BY: [address] [id number] Information: [id number] Lymphocytes (Bld) [#/Vol] 2.1 {x10E3/uL} Normal 0.7-3.1 [facility] Work Phone: Comment on above: PATIENT WAS FASTINGP ERFORMED BY: [facility]6370 [facility] [id number] Information: [id number] Lymphocytes/100 WBC (Bld) 32 % Normal 14-46 [facility] Work Phone: Comment on above: PATIENT WAS FASTINGP ERFORMED BY: LabKaren [place] 1094270 [facility] [id number] Information: [id number] MCH (RBC) [Entitic mass] 29.4 pg Normal 26.6-33.0 [facility] Work Phone: Comment on above: PATIENT WAS FASTINGP ERFORMED BY: [facility]6370 [facility] [id number] Information: [id number] MCHC (RBC) [Mass/Vol] 33.0 g/dL Normal 31.5-35.7 [facility] Internal Medicine Work Phone: Comment on above: PATIENT WAS FASTINGP ERFORMED BY: [facility]6370 [facility] [id number] Information: [id number] MCV (RBC) [Entitic vol] 89 fL Normal 79-97 [facility] Work Phone: Comment on above: PATIENT WAS FASTINGP ERFORMED BY: [facility]6370 [facility] [id number] Information: [id number] Monocytes (Bld) [#/Vol] 0.6 {x10E3/uL} Normal 0.1-0.9 [facility] Work Phone: Comment on above: PATIENT WAS FASTINGP ERFORMED BY: [facility]6370 [facility] [id number] Information: [id number] Monocytes/100 WBC (Bld) 8 % Normal 4-12 [facility] Work Phone: Comment on above: PATIENT WAS FASTINGP ERFORMED BY: JAMA RadhaRoger JiménezMvvdbe5389 [facility] [id number] Information: [id number] Neutrophils (Bld) [#/Vol] 3.8 {x10E3/uL} Normal 1.4-7.0 [facility] Work Phone: Comment on above: PATIENT WAS FASTINGP ERFORMED BY: JAMA [facility]6370 [facility] [id number] Information: [id number] Neutrophils/100 WBC (Bld) 57 % Normal 40-74 [facility] Work Phone: Comment on above: PATIENT WAS FASTINGP ERFORMED BY: JAMA Richardson Eenwis0866 [facility] [id number] Information: [id number] Platelets (Bld) [#/Vol] 228 {x10E3/uL} Normal 155-379 [facility] Internal Medicine Work Phone: Comment on above: PATIENT WAS FASTINGP ERFORMED BY: JAMA Jiménezlin6370 [facility] [id number] Information: [id number] RBC (Bld) [#/Vol] 4.79 {x10E6/uL} Normal 4.14-5.80 [facility] Internal Medicine Work Phone: Comment on above: PATIENT WAS FASTINGP ERFORMED BY: JAMA [facility] Lflnid4628 [facility] [id number] Information: [id number] WBC (Bld) [#/Vol] 6.7 {x10E3/uL} Normal 3.4-10.8 [facility] Internal Medicine Work Phone: Comment on above: PATIENT WAS FASTINGP ERFORMED BY: JAMA [facility] Ofbvbt6811 [facility] [id number] Information: [id number] LIPID PANEL ([id number])Ordered B y: Corporate Legal Intern on 06-24-2013 Cholesterol [Mass/Vol] 155 mg/dL Normal 100-199 [facility] Work Phone: Comment on above: PATIENT WAS FASTINGP ERFORMED BY: JAMA Dylan Rqanpp3115 [facility] [place] [id number] Cholesterol in HDL [Mass/Vol] 45 mg/dL Normal [facility] Work Phone: Comment on above: According to ATP-III Guidelines, HDL-C >59 mg/dL is considered anegative risk factor for CHD. PATIENT WAS FASTINGP ERFORMED BY: JAMA LabRoger JiménezQvlxqq8508 [facility] [place] [id number] Cholesterol in LDL [Mass/Vol] 89 mg/dL Normal 0-99 [facility] Work Phone: Comment on above: PATIENT WAS FASTINGP ERFORMED BY: JAMA [facility] Sshove0381 [facility] [place] [id number] Cholesterol in LDL/Cholesterol in HDL [Mass ratio] 2.0 {ratio_units} Normal 0.0-3.6 [facility] Work Phone: Comment on above: PATIENT WAS FASTINGP ERFORMED BY: JAMA LabRoger JiménezGkwesy4616 [facility] [place] [id number] Cholesterol in VLDL [Mass/Vol] 21 mg/dL Normal 5-40 [facility] Work Phone: Comment on above: PATIENT WAS FASTINGP ERFORMED BY: JAMA LabCo Gwbecs5060 Jmi[facility] [place] [id number] Triglyceride [Mass/Vol] 104 mg/dL Normal 0-149 [facility] Work Phone: Comment on above: PATIENT WAS FASTINGP ERFORMED BY: JAMA [facility] Rdbmqg6525 [place] [place] [id number] METABOLIC PANEL, COMPREHENSI VE ([id number])Ordered By: Corporate Legal Intern on 06-24-2013 Albumin [Mass/Vol] 4.5 g/dL Normal 3.5-5.5 [facility] Internal Medicine Work Phone: Comment on above: PATIENT WAS FASTINGP ERFORMED BY: JAMA [facility] Hmxspd4272 Jimenez RoadDublin [place] [id number] Albumin/Globulin [Mass ratio] 2.1 {ratio} Normal 1.1-2.5 [facility] Work Phone: Comment on above: PATIENT WAS FASTINGP ERFORMED BY: JAMA [facility] Kixhyr8396 Jimenez RoadDublin [place] [id number] ALP [Catalytic activity/Vol] 57 [iU]/L Normal 39-117 [facility] Work Phone: Comment on above: PATIENT WAS FASTINGP ERFORMED BY: JAMA [facility] Rarria5698 Jimenez RoadDublin [place] [id number] ALT [Catalytic activity/Vol] 23 [iU]/L Normal 0-44 [facility] Work Phone: Comment on above: PATIENT WAS FASTINGP ERFORMED BY: JAMA [facility] Ucskwt8759 Jimenez RoadDublin [place] [id number] AST [Catalytic activity/Vol] 20 [iU]/L Normal 0-40 [facility] Work Phone: Comment on above: PATIENT WAS FASTINGP ERFORMED BY: JAMA [facility] Mnqcqz4260 [address] RoadDublin [place] [id number] Bilirubin [Mass/Vol] 0.4 mg/dL Normal 0.0-1.2 [facility] Work Phone: Comment on above: PATIENT WAS FASTINGP ERFORMED BY: [facility] Uzuwch4230 Jimenez RoadDublin [place] [id number] Calcium [Mass/Vol] 9.8 mg/dL Normal 8.7-10.2 [facility] Internal Medicine Work Phone: Comment on above: PATIENT WAS FASTINGP ERFORMED BY: JAMA [facility] Zsrelm2785 Jimenez RoadDublin [place] [id number] Chloride [Moles/Vol] 103 mmol/L Normal 97-108 [facility] Work Phone: Comment on above: PATIENT WAS FASTINGP ERFORMED BY: CB [facility] Xucdru9776 [address] RoadDublin [place] [id number] CO2 [Moles/Vol] 22 mmol/L Normal 19-28 [facility] Internal Medicine Work Phone: Comment on above: PATIENT WAS FASTINGP ERFORMED BY: CB [facility] Rdhrpv1063 Jim[address] RoadDublin [place] [id number] Creatinine [Mass/Vol] 0.94 mg/dL Normal 0.76-1.27 [facility] Internal Medicine Work Phone: Comment on above: PATIENT WAS FASTINGP ERFORMED BY: CB [facility] Pyhpet9640 [address] RoadDublin [place] [id number] GFR/1.73 sq M predicted among blacks CKD-EPI (S/P/Bld) [Vol rate/Area] 105 mL/min/1.73 Normal [facility] Internal Medicine Work Phone: Comment on above: PATIENT WAS FASTINGP ERFORMED BY: CB [facility] Ctclaw3653 [address] RoadDublin [place] [id number] GFR/1.73 sq M predicted among non-blacks CKD-EPI (S/P/Bld) [Vol rate/Area] 91 mL/min/1.73 Normal [facility] Internal Medicine Work Phone: Comment on above: PATIENT WAS FASTINGP ERFORMED BY: CB [facility] Jcnkbl9514 [address] RoadDublin [place] [id number] Globulin (S) [Mass/Vol] 2.1 g/dL Normal 1.5-4.5 [facility] Internal Medicine Work Phone: Comment on above: PATIENT WAS FASTINGP ERFORMED BY: CB [facility] Eatkng1676 Jim[address] RoadDublin [place] [id number] Glucose [Mass/Vol] 107 mg/dL Abnormal 65-99 [facility] Internal Medicine Work Phone: Comment on above: PATIENT WAS FASTINGP ERFORMED BY: CB [facility] Kusxdy3943 [address] RoadDublin [place] [id number] Potassium [Moles/Vol] 4.4 mmol/L Normal 3.5-5.2 [facility] Internal Medicine Work Phone: Comment on above: PATIENT WAS FASTINGP ERFORMED BY: JAMA LabRoger Ixagxf8298 [address] RoadDublin [place] [id number] Protein [Mass/Vol] 6.6 g/dL Normal 6.0-8.5 [facility] Internal Medicine Work Phone: Comment on above: PATIENT WAS FASTINGP ERFORMED BY: JAMA LabRoger JiménezDemsel2347 Jimenez RoadDublin [place] [id number] Sodium [Moles/Vol] 138 mmol/L Normal 134-144 [facility] Internal Medicine Work Phone: Comment on above: PATIENT WAS FASTINGP ERFORMED BY: JAMA LabRoger JiménezDeibuo8466 Jimenez RoadDublin [place] [id number] Urea nitrogen [Mass/Vol] 17 mg/dL Normal 6-24 [facility] Work Phone: Comment on above: PATIENT WAS FASTINGP ERFORMED BY: JAMA Jiménezlin6370 [address] RoadDublin [place] [id number] Urea nitrogen/Creatinine [Mass ratio] 18 mg/mg Normal 9-20 [facility] Work Phone: Comment on above: PATIENT WAS FASTINGP ERFORMED BY: JAMA Jiménezlin6370 [address] RoadDublin [place] [id number] MICROALBUMINOrdered By: Syst em Glassine Machine Tender on 06-24-2013 Albumin DL <= 20 mg/L (U) [Mass/Vol] 7.2 ug/mL Normal 0.0-17.0 [facility] Work Phone: Comment on above: PATIENT WAS FASTINGP ERFORMED BY: JAMA LabRoger Hnaaqo6276 [address] RoadDublin [place] [id number] Albumin/Creatinine (U) [Mass ratio] 6.9 {mg/g_creat} Normal 0.0-30.0 [facility] Work Phone: Comment on above: PATIENT WAS FASTINGP ERFORMED BY: JAMA LabRoger JiménezOrmwxu5357 Jimenez RoadDublin [place] [id number] Creatinine (U) [Mass/Vol] 104.5 mg/dL Normal 22.0-328.0 [facility] Work Phone: Comment on above: PATIENT WAS FASTINGP ERFORMED BY: [employer] Uijwyh0262 Jimenez MimviDublin [place] [id number] PSA (PROSTATE SPECIFIC ANTIG EN) (V76.44)Ordered By: Corporate Legal Intern on 06-24-2013 Prostate specific Ag [Mass/Vol] 1.7 ng/mL Normal 0.0-4.0 [facility] Work Phone: Comment on above: Duroline ECLIA methodol ogy. .According to the [place] [employer], Serum PSA shoulddecrease and remain at undetectable levels after radicalprostatectomy. The AUA defines biochemical recurrence as an initialPSA value 0.2 ng/mL or greater followed by a subsequent confirmatoryPSA value 0.2 ng/mL or greater.Values obtained with different assay methods or kits cannot be usedinterchangeably. Results cannot be interpreted as absolute evidenceof the presence or absence of malignant disease. dx screening; PATIEN T WAS FASTINGPERFORMED BY: StockLayouts6[address] BlueStacksblin [place] [id number] TSH ([id number])Ordered By: Zentilae m Glassine Machine Tender on 06-24-2013 TSH Qn 1.230 {uIU/mL} Normal 0.450-4.50 0 [facility] Work Phone: Comment on above: PATIENT WAS FASTINGP ERFORMED BY: [employer] Ouomwf2431 [address] MimviDublin [place] [id number] URINALYSIS, W/ MICRO (07659) Ordered By: Corporate Legal Intern on 06-24-2013 Appearance (U) Clear Normal Comprehens johann Internal Medicine Work Phone: Comment on above: PATIENT WAS FASTINGP ERFORMED BY: [employer] [facility] Xkuzxz1616 Jim[address] RoadDublin [place] [id number] Bilirubin Ql (U) Negative Normal Comprehe nsive Internal Medicine Work Phone: Comment on above: PATIENT WAS FASTINGP ERFORMED BY: [employer] LabMedalliarp Ystjrg5636 Jim[address] RoadDublin [place] [id number] Color (U) Yellow Normal [facility] Work Phone: Comment on above: PATIENT WAS FASTINGP ERFORMED BY: JAMA [facility] Oyoltm7183 Jim[address] RoadDublin [place] [id number] Glucose Ql (U) Negative Normal Comprehens johann Internal Medicine Work Phone: Comment on above: PATIENT WAS FASTINGP ERFORMED BY: JAMA [facility] Egdtjj9100 Jim[address] RoadDublin [place] [id number] Hemoglobin Ql (U) Negative Normal Compreh ensive Internal Medicine Work Phone: Comment on above: PATIENT WAS FASTINGP ERFORMED BY: JAMA [facility] Gjwdlm7938 Jim[address] RoadDublin [place] [id number] Ketones Ql (U) Negative Normal Comprehens johann Internal Medicine Work Phone: Comment on above: PATIENT WAS FASTINGP ERFORMED BY: JAMA [facility] Ynsktz3257 Jim[address] RoadDublin [place] [id number] Leukocyte esterase Test strip Ql (U) Negative Normal [facility] Work Phone: Comment on above: PATIENT WAS FASTINGP ERFORMED BY: JAMA [facility] Cuczct0822 Jim[address] RoadDublin [place] [id number] Microscopic observation LM Nom (Urine sed) See below: Normal [facility] Work Phone: Comment on above: PATIENT WAS FASTINGP ERFORMED BY: JAMA [facility] Zjvyhc8165 Jim[address] RoadDublin [place] [id number] Microscopic observation LM Nom (Urine sed) MICRON Normal [facility] Work Phone: Comment on above: Microscopic follows if indicated. PATIENT WAS FASTINGP ERFORMED BY: JAMA [facility] Dwfgai2190 Jimenez RoadDublin [place] [id number] Nitrite Ql (U) Negative Normal Comprehens johann Internal Medicine Work Phone: Comment on above: PATIENT WAS FASTINGP ERFORMED BY: JAMA [facility] Kptjdh6874 Jimenez RoadDublin [place] [id number] pH (U) 5.5 [pH] Normal 5.0-7.5 [facility] Work Phone: Comment on above: PATIENT WAS FASTINGP ERFORMED BY: LabCo Luoqzj1243 Jimenez RoadCarolinas Continuecare Hospital At Pinevillein [place] [id number] Protein Ql (U) Negative Normal Comprehens johann Internal Medicine Work Phone: Comment on above: PATIENT WAS FASTINGP ERFORMED BY: [facility] Ybcasz5644 Jimenez RoadDublin [place] [id number] Specific gravity (U) [Rel density] 1.018 1 Normal 1.005-1.03 0 [facility] Work Phone: Comment on above: PATIENT WAS FASTINGP ERFORMED BY: LabCo Opnsum3762 Jimenez RoadCarolinas Continuecare Hospital [facility] Pinevillein [place] [id number] Urobilinogen Test strip (U) [Mass/Vol] 0.2 mg/dL Normal 0.0-1.9 Comprehensi Internal Medicine Work Phone: Comment on above: PATIENT WAS FASTINGP ERFORMED BY: [facility] Jmnhwi3194 Jimenez RoadFormerly [facility] [id number] HgA1C , Office ([id number])Ordere d By: Marycarmen Robles on 06-11-2013 HbA1c (Bld) [Mass fraction] 5.8 % Normal 4.6 - 7.1 [facility] Work Phone: Blood Glucose , Office ([phone])Ordered By: Yudith Vaz on 07-08-2012 Glucose Glucometer (BldC) [Moles/Vol] 142 1 Normal [facility] Work Phone: HgA1C , Office ([phone])Ordere d By: Yudith Vaz on 07-08-2012 HbA1c (Bld) [Mass fraction] 5.7 % Normal 4.6 - 7.1 [facility] Work Phone: CBC WITH MANUAL DIFF ([id number]) Ordered By: Corporate Legal Intern on 06-28-2012 Basophils (Bld) [#/Vol] 0.0 {x10E3/uL} Normal 0.0-0.2 [facility] Work Phone: Comment on above: PATIENT WAS FASTINGP ERFORMED BY: [facility] Pzhbrq6851 Jimenez RoadDuBaptist Health Deaconess Madisonville [id number] Information: [id number],[id number] Basophils/100 WBC (Bld) 0 % Normal 0-3 [facility] Work Phone: Comment on above: PATIENT WAS FASTINGP ERFORMED BY: [address] [id number] Information: 422851,[id number] Eosinophils (Bld) [#/Vol] 0.3 {x10E3/uL} Normal 0.0-0.4 [facility] Work Phone: Comment on above: PATIENT WAS FASTINGP ERFORMED BY: [address] [id number] Information: [id number],[id number] Eosinophils/100 WBC (Bld) 3 % Normal 0-7 [facility] Work Phone: Comment on above: PATIENT WAS FASTINGP ERFORMED BY: [address] [id number] Information: [id number],[id number] Erythrocyte distribution width (RBC) [Ratio] 13.3 % Normal 12.3-15.4 [facility] Work Phone: Comment on above: PATIENT WAS FASTINGP ERFORMED BY: [address] [id number] Information: [id number],L02385 Hematocrit (Bld) [Volume fraction] 43.2 % Normal 37.5-51.0 [facility] Work Phone: Comment on above: PATIENT WAS FASTINGP ERFORMED BY: [address] [id number] Information: [id number],[id number] Hemoglobin (Bld) [Mass/Vol] 14.3 g/dL Normal 12.6-17.7 [facility] Work Phone: Comment on above: PATIENT WAS FASTINGP ERFORMED BY: [address] [id number] Information: 382209,R39396 Immature granulocytes (Bld) [#/Vol] 0.0 {x10E3/uL} Normal 0.0-0.1 [facility] Work Phone: Comment on above: PATIENT WAS FASTINGP ERFORMED BY: [facility]6370 [facility] [id number] Information: [id number],[id number] Immature granulocytes/100 WBC (Bld) 0 % Normal 0-2 [facility] Work Phone: Comment on above: PATIENT WAS FASTINGP ERFORMED BY: [address] [id number] Information: 102166,[id number] Lymphocytes (Bld) [#/Vol] 2.9 {x10E3/uL} Normal 0.7-4.5 [facility] Work Phone: Comment on above: PATIENT WAS FASTINGP ERFORMED BY: [address] [id number] Information: 541157,G56446 Lymphocytes/100 WBC (Bld) 38 % Normal 14-46 [facility] Work Phone: Comment on above: PATIENT WAS FASTINGP ERFORMED BY: [place] 9381970 [facility] [id number] Information: 191915,[id number] MCH (RBC) [Entitic mass] 29.4 pg Normal 26.6-33.0 [facility] Internal Medicine Work Phone: Comment on above: PATIENT WAS FASTINGP ERFORMED BY: [place] 9381970 [facility] [id number] Information: 093072,[id number] MCHC (RBC) [Mass/Vol] 33.1 g/dL Normal 31.5-35.7 [facility] Internal Medicine Work Phone: Comment on above: PATIENT WAS FASTINGP ERFORMED BY: [address] [id number] Information: 901318,[id number] MCV (RBC) [Entitic vol] 89 fL Normal 79-97 [facility] Work Phone: Comment on above: PATIENT WAS FASTINGP ERFORMED BY: JAMA [facility] Kdlmvz2869 [facility] [id number] Information: 886724,[id number] Monocytes (Bld) [#/Vol] 0.7 {x10E3/uL} Normal 0.1-1.0 [facility] Work Phone: Comment on above: PATIENT WAS FASTINGP ERFORMED BY: JAMA LabC.[facility]6370 [facility] [id number] Information: [id number],[id number] Monocytes/100 WBC (Bld) 9 % Normal 4-13 [facility] Work Phone: Comment on above: PATIENT WAS FASTINGP ERFORMED BY: [facility]6370 [facility] [id number] Information: 616123,[id number] Neutrophils (Bld) [#/Vol] 3.7 {x10E3/uL} Normal 1.8-7.8 [facility] Work Phone: Comment on above: PATIENT WAS FASTINGP ERFORMED BY: JAMA [facility] Kvgomj4632 [facility] [id number] Information: 510993,[id number] Neutrophils/100 WBC (Bld) 50 % Normal 40-74 [facility] Work Phone: Comment on above: PATIENT WAS FASTINGP ERFORMED BY: [facility] Kppwbh8358 [facility] [id number] Information: 834234,G51682 Platelets (Bld) [#/Vol] 206 {x10E3/uL} Normal 140-415 [facility] Work Phone: Comment on above: PATIENT WAS FASTINGP ERFORMED BY: [facility] Yrucnw9818 [facility] [id number] Information: 124427,[id number] RBC (Bld) [#/Vol] 4.86 {x10E6/uL} Normal 4.14-5.80 [facility]erensive [facility] Work Phone: Comment on above: PATIENT WAS FASTINGP ERFORMED BY: JAMA LabCothania NogueiraGzeyea68[address] [facility] Centerin [place] [id number] Information: 561998,[id number] WBC (Bld) [#/Vol] 7.5 {x10E3/uL} Normal 4.0-10.5 [facility] Internal Medicine Work Phone: Comment on above: PATIENT WAS FASTINGP ERFORMED BY: JAMA [facility] Yvbqqb2617 [facility] [id number] Information: [id number] LIPID PANEL (25937)Ordered B y: Corporate Legal Intern on 06-28-2012 Cholesterol [Mass/Vol] 153 mg/dL Normal 100-199 [facility] Work Phone: Comment on above: PATIENT WAS FASTINGP ERFORMED BY: JAMA LabAdarsh Rjzxcd4286 [facility] [id number] Cholesterol in HDL [Mass/Vol] 48 mg/dL Normal [facility] Work Phone: Comment on above: According to ATP-III Guidelines, HDL-C >59 mg/dL is considered anegative risk factor for CHD. PATIENT WAS FASTINGP ERFORMED BY: JAMA [facility] Jherhu5443 [facility] [id number] Cholesterol in LDL [Mass/Vol] 85 mg/dL Normal 0-99 [facility] Work Phone: Comment on above: PATIENT WAS FASTINGP ERFORMED BY: JAMA [facility] Uqoxsx5240 [facility] [id number] Cholesterol in LDL/Cholesterol in HDL [Mass ratio] 1.8 {ratio_units} Normal 0.0-3.6 [facility] Work Phone: Comment on above: PATIENT WAS FASTINGP ERFORMED BY: [facility] Ateoju2482 [facility] [id number] Cholesterol in VLDL [Mass/Vol] 20 mg/dL Normal 5-40 [facility] Work Phone: Comment on above: PATIENT WAS FASTINGP ERFORMED BY: JAMA [facility] Gzqhoe1279 Jimenez RoadDublin [place] [id number] Triglyceride [Mass/Vol] 98 mg/dL Normal 0-149 [facility] Work Phone: Comment on above: PATIENT WAS FASTINGP ERFORMED BY: CB [facility] Ruoocl8803 Jimenez RoadDublin [place] [id number] METABOLIC PANEL, COMPREHENSI VE (00141)Ordered By: Corporate Legal Intern on 06-28-2012 Albumin [Mass/Vol] 4.9 g/dL Normal 3.5-5.5 [facility] Internal Medicine Work Phone: Comment on above: PATIENT WAS FASTINGP ERFORMED BY: JAMA [facility] Gkcosa4669 Jimenez RoadDublin [place] [id number] Albumin/Globulin [Mass ratio] 2.1 {ratio} Normal 1.1-2.5 [facility] Work Phone: Comment on above: PATIENT WAS FASTINGP ERFORMED BY: JAMA [facility] Zqikrb4888 [address]enez RoadDublin [place] [id number] ALP [Catalytic activity/Vol] 54 [iU]/L Normal 25-150 [facility] Work Phone: Comment on above: PATIENT WAS FASTINGP ERFORMED BY: JAMA [facility] Ewwhpi6265 [address] RoadDublin [place] [id number] ALT [Catalytic activity/Vol] 31 [iU]/L Normal 0-44 [facility] Work Phone: Comment on above: PATIENT WAS FASTINGP ERFORMED BY: CB [facility] Lanqvg5742 [address] RoadDublin [place] [id number] AST [Catalytic activity/Vol] 25 [iU]/L Normal 0-40 [facility] Work Phone: Comment on above: PATIENT WAS FASTINGP ERFORMED BY: CB [facility] Bvzrpc2686 [address] RoadDublin [place] [id number] Bilirubin [Mass/Vol] 0.8 mg/dL Normal 0.0-1.2 Comp rehensive Internal Medicine Work Phone: Comment on above: PATIENT WAS FASTINGP ERFORMED BY: CB [facility] Qepnki9843 Jimenez RoadDublin [place] [id number] Calcium [Mass/Vol] 9.7 mg/dL Normal 8.7-10.2 [facility] Internal Medicine Work Phone: Comment on above: PATIENT WAS FASTINGP ERFORMED BY: CB [facility] Ozyfyz8873 Jimenez RoadDublin [place] [id number] Chloride [Moles/Vol] 102 mmol/L Normal 97-108 [facility] centerensive Internal Medicine Work Phone: Comment on above: PATIENT WAS FASTINGP ERFORMED BY: CB [facility] Qgdxym9833 Jim[address] RoadDublin [place] [id number] CO2 [Moles/Vol] 23 mmol/L Normal 20-32 [facility] Internal Medicine Work Phone: Comment on above: PATIENT WAS FASTINGP ERFORMED BY: CB [facility] Bjpakw3754 [address] RoadDublin [place] [id number] Creatinine [Mass/Vol] 1.05 mg/dL Normal 0.76-1.27 [facility] Work Phone: Comment on above: PATIENT WAS FASTINGP ERFORMED BY: CB [facility] Igreju6560 Jimenez RoadDublin [place] [id number] GFR/1.73 sq M predicted among blacks CKD-EPI (S/P/Bld) [Vol rate/Area] 93 mL/min/1.73 Normal [facility] Work Phone: Comment on above: PATIENT WAS FASTINGP ERFORMED BY: CB [facility] Lpzege2669 [address] RoadDublin [place] [id number] GFR/1.73 sq M predicted among non-blacks CKD-EPI (S/P/Bld) [Vol rate/Area] 80 mL/min/1.73 Normal [facility] Work Phone: Comment on above: PATIENT WAS FASTINGP ERFORMED BY: CB [facility] Lsvxmr5886 [address] RoadDublin [place] [id number] Globulin (S) [Mass/Vol] 2.3 g/dL Normal 1.5-4.5 [facility] Internal Medicine Work Phone: Comment on above: PATIENT WAS FASTINGP ERFORMED BY: JAMA [facility] Hyyipx7698 [address] RoadDublin [place] [id number] Glucose [Mass/Vol] 100 mg/dL Abnormal 65-99 [facility] Internal Medicine Work Phone: Comment on above: PATIENT WAS FASTINGP ERFORMED BY: CB [facility] Wvrnie5117 [address] RoadDublin [place] [id number] Potassium [Moles/Vol] 4.0 mmol/L Normal 3.5-5.2 [facility] Internal Medicine Work Phone: Comment on above: PATIENT WAS FASTINGP ERFORMED BY: JAMA [facility] Abzyfn5133 [address] RoadDublin [place] [id number] Protein [Mass/Vol] 7.2 g/dL Normal 6.0-8.5 [facility] Internal Medicine Work Phone: Comment on above: PATIENT WAS FASTINGP ERFORMED BY: JAMA [facility] Audhlr1595 [address] RoadDublin [place] [id number] Sodium [Moles/Vol] 137 mmol/L Normal 134-144 [facility] Internal Medicine Work Phone: Comment on above: PATIENT WAS FASTINGP ERFORMED BY: JAMA [facility] Swoddn2878 [address] RoadDublin [place] [id number] Urea nitrogen [Mass/Vol] 17 mg/dL Normal 6-24 [facility] Internal Medicine Work Phone: Comment on above: PATIENT WAS FASTINGP ERFORMED BY: JAMA [facility] Ogthxk5178 [address] RoadDublin [place] [id number] Urea nitrogen/Creatinine [Mass ratio] 16 mg/mg Normal 9-20 [facility] Internal Medicine Work Phone: Comment on above: PATIENT WAS FASTINGP ERFORMED BY: JAMA [facility] Iqgdzh1357 [address] RoadDublin [place] [id number] MICROALBUMINOrdered By: Syst em Glassine Machine Tender on 06-28-2012 Albumin DL <= 20 mg/L (U) [Mass/Vol] 5.8 ug/mL Normal 0.0-17.0 [facility] Work Phone: Comment on above: PATIENT WAS FASTINGP ERFORMED BY: JAMA RadhaRoger JiménezZshpik3887 Jimenez RoadDublin [place] [id number] Albumin/Creatinine (U) [Mass ratio] 4.0 {mg/g_creat} Normal 0.0-30.0 [facility] Work Phone: Comment on above: PATIENT WAS FASTINGP ERFORMED BY: JAMA Jiménezlin6370 [address] RoadDublin [place] [id number] Creatinine (U) [Mass/Vol] 143.7 mg/dL Normal 22.0-328.0 [facility] Work Phone: Comment on above: PATIENT WAS FASTINGP ERFORMED BY: JAMA Jiménezlin6370 [address] RoadDublin [place] [id number] TSH ([id number])Ordered By: [employer] Glassine Machine Tender on 06-28-2012 TSH Qn 1.580 {uIU/mL} Normal 0.450-4.50 0 [facility] Work Phone: Comment on above: PATIENT WAS FASTINGP ERFORMED BY: JAMA Jiménezlin6370 [address] RoadDublin [place] [id number] URINALYSIS, W/ MICRO ([id number]) Ordered By: Corporate Legal Intern on 06-28-2012 Appearance (U) Clear Normal Comprehens johann Internal Medicine Work Phone: Comment on above: PATIENT WAS FASTINGP ERFORMED BY: JAMA LabRoger JiménezLufmrm2832 Jim[address] RoadDublin [place] [id number] Bilirubin Ql (U) Negative Normal Comprehe nsive Internal Medicine Work Phone: Comment on above: PATIENT WAS FASTINGP ERFORMED BY: JAMA LabRoger JiménezByqxfk7345 [address] RoadDublin [place] [id number] Color (U) Yellow Normal [facility] Work Phone: Comment on above: PATIENT WAS FASTINGP ERFORMED BY: JAMA LabRoger JiménezAgalst4001 [address] RoadDublin [place] [id number] Glucose Ql (U) Negative Normal Comprehens johann Internal Medicine Work Phone: Comment on above: PATIENT WAS FASTINGP ERFORMED BY: JAMA LabRoger JiménezXmedil0996 [address] RoadDublin [place] [id number] Hemoglobin Ql (U) Negative Normal Compreh ensive Internal Medicine Work Phone: Comment on above: PATIENT WAS FASTINGP ERFORMED BY: JAMA LabRoger JiménezOgwlep1602 [address] RoadDublin [place] [id number] Ketones Ql (U) Negative Normal Comprehens johann Internal Medicine Work Phone: Comment on above: PATIENT WAS FASTINGP ERFORMED BY: JAMA LabRoger JiménezVbzclh0507 Jim[address] RoadDublin [place] [id number] Leukocyte esterase Test strip Ql (U) Negative Normal [facility] Work Phone: Comment on above: PATIENT WAS FASTINGP ERFORMED BY: JAMA Jiménezlin6370 [address] RoadDublin [place] [id number] Microscopic observation LM Nom (Urine sed) See below: Normal [facility] Work Phone: Comment on above: PATIENT WAS FASTINGP ERFORMED BY: JAMA LabRoger JiménezEvhzdi1184 [address] RoadDublin [place] [id number] Microscopic observation LM Nom (Urine sed) MICRON Normal [facility] Work Phone: Comment on above: Microscopic follows if indicated. PATIENT WAS FASTINGP ERFORMED BY: JAMA Jiménezlin6370 [address] RoadDublin [place] [id number] Nitrite Ql (U) Negative Normal Comprehens johann Internal Medicine Work Phone: Comment on above: PATIENT WAS FASTINGP ERFORMED BY: JAMA LabAdarshrp Nnawjt7170 Jimenez RoadDublin [place] [id number] pH (U) 5.5 [pH] Normal 5.0-7.5 [facility] Work Phone: Comment on above: PATIENT WAS FASTINGP ERFORMED BY: JAMA LabRoger JiménezCmzuqe2259 Jimenez RoadDublin [place] [id number] Protein Ql (U) Negative Normal Comprehens johann Internal Medicine Work Phone: Comment on above: PATIENT WAS FASTINGP ERFORMED BY: JAMA Boastify[address] [place] [id number] Specific gravity (U) [Rel density] 1.019 1 Normal 1.005-1.03 0 [facility] Internal Medicine Work Phone: Comment on above: PATIENT WAS FASTINGP ERFORMED BY: StockLayouts6370 [facility] [id number] Urobilinogen Test strip (U) [Mass/Vol] 0.2 mg/dL Normal 0.0-1.9 Comprehensi Internal Medicine Work Phone: Comment on above: PATIENT WAS FASTINGP ERFORMED BY: Graphdive70 eVestmentSloop [facility] [id number] Blood Glucose , Office ([phone])on 01-08-2012 Glucose Glucometer (BldC) [Moles/Vol] 88 1 Normal [facility] Internal Medicine Work Phone: HgA1C , Office ([phone])on HbA1c (Bld) [Mass fraction] 5.8 % Normal 4.6 - 7.1 [facility] Internal Medicine Work Phone: Hemoglobin Glyclated (HGB A1 C) (48010)Ordered By: Corporate Legal Intern on 09-06-2011 HbA1c (Bld) [Mass fraction] 5.9 % Abnormal 4.8-5.6 [facility] Internal Medicine Work Phone: Comment on above: . Increased risk for diabetes: 5.7 - 6.4 Diabetes: >6.4 Glycemic control for adults with diabetes: <7.0 PATIENT NOT FASTINGP ERFORMED BY: StockLayouts6370 [facility]mentS[facility] [id number] Information: ADD [id number] AND DRAW FEE [phone] CBC WITH MANUAL DIFF (24898) Ordered By: Corporate Legal Intern on 08-28-2011 Basophils (Bld) [#/Vol] 0.0 {x10E3/uL} Normal 0.0-0.2 [facility] Internal Medicine Work Phone: Comment on above: PATIENT WAS FASTINGP ERFORMED BY: [place] [address] [facility] [id number] Information: [id number] Basophils/100 WBC (Bld) 1 % Normal 0-3 [facility] Work Phone: Comment on above: PATIENT WAS FASTINGP ERFORMED BY: [address] [id number] Information: [id number] Eosinophils (Bld) [#/Vol] 0.2 {x10E3/uL} Normal 0.0-0.4 [facility] Work Phone: Comment on above: PATIENT WAS FASTINGP ERFORMED BY: [address] [id number] Information: 009040,[id number] Eosinophils/100 WBC (Bld) 2 % Normal 0-7 [facility] Work Phone: Comment on above: PATIENT WAS FASTINGP ERFORMED BY: [address] [id number] Information: [id number],[id number] Erythrocyte distribution width (RBC) [Ratio] 12.8 % Normal 12.3-15.4 [facility] Work Phone: Comment on above: PATIENT WAS FASTINGP ERFORMED BY: [address] [id number] Information: [id number],[id number] Hematocrit (Bld) [Volume fraction] 41.4 % Normal 37.5-51.0 [facility] Work Phone: Comment on above: PATIENT WAS FASTINGP ERFORMED BY: [place] 9381970 [facility] [id number] Information: [id number],Y74992 Hemoglobin (Bld) [Mass/Vol] 14.7 g/dL Normal 12.6-17.7 [facility] Work Phone: Comment on above: PATIENT WAS FASTINGP ERFORMED BY: [address] [place] [id number] Information: 957888,C17503 Immature granulocytes (Bld) [#/Vol] 0.0 {x10E3/uL} Normal 0.0-0.1 [facility] Work Phone: Comment on above: PATIENT WAS FASTINGP ERFORMED BY: [facility]6370 [facility] [id number] Information: [id number],[id number] Immature granulocytes/100 WBC (Bld) 0 % Normal 0-2 [facility] Work Phone: Comment on above: PATIENT WAS FASTINGP ERFORMED BY: [place] [address]38[address] [facility] [id number] Information: 765740,[id number] Lymphocytes (Bld) [#/Vol] 2.2 {x10E3/uL} Normal 0.7-4.5 [facility] Work Phone: Comment on above: PATIENT WAS FASTINGP ERFORMED BY: [place] 9381970 [facility] [id number] Information: 492087,R78851 Lymphocytes/100 WBC (Bld) 26 % Normal 14-46 [facility] Work Phone: Comment on above: PATIENT WAS FASTINGP ERFORMED BY: [place] 9381970 [facility] [id number] Information: 328386,Y41013 MCH (RBC) [Entitic mass] 30.8 pg Normal 26.6-33.0 [facility] Work Phone: Comment on above: PATIENT WAS FASTINGP ERFORMED BY: [facility]6370 [facility] [id number] Information: 174415,[id number] MCHC (RBC) [Mass/Vol] 35.5 g/dL Normal 31.5-35.7 [facility] Internal Medicine Work Phone: Comment on above: PATIENT WAS FASTINGP ERFORMED BY: [place] [address]381970 [facility] [id number] Information: 609524,[id number] MCV (RBC) [Entitic vol] 87 fL Normal 79-97 [facility] Work Phone: Comment on above: PATIENT WAS FASTINGP ERFORMED BY: JAMA [facility] Idclfb6197 [facility] [id number] Information: 581206,[id number] Monocytes (Bld) [#/Vol] 0.7 {x10E3/uL} Normal 0.1-1.0 [facility] Work Phone: Comment on above: PATIENT WAS FASTINGP ERFORMED BY: [facility]6370 [facility] [id number] Information: 096326,[id number] Monocytes/100 WBC (Bld) 9 % Normal 4-13 [facility] Work Phone: Comment on above: PATIENT WAS FASTINGP ERFORMED BY: [facility]6370 [facility] [id number] Information: 518453,G16213 Neutrophils (Bld) [#/Vol] 5.1 {x10E3/uL} Normal 1.8-7.8 [facility] Work Phone: Comment on above: PATIENT WAS FASTINGP ERFORMED BY: [facility]6370 [facility] [id number] Information: 844682,F20822 Neutrophils/100 WBC (Bld) 62 % Normal 40-74 [facility] Work Phone: Comment on above: PATIENT WAS FASTINGP ERFORMED BY: Lab[facility]6370 [facility] [id number] Information: 574914,[id number] Platelets (Bld) [#/Vol] 214 {x10E3/uL} Normal 140-415 [facility] Work Phone: Comment on above: PATIENT WAS FASTINGP ERFORMED BY: [facility]6370 [facility] [id number] Information: 954581,C94773 RBC (Bld) [#/Vol] 4.78 {x10E6/uL} Normal 4.14-5.80 [facility] Internal Medicine Work Phone: Comment on above: PATIENT WAS FASTINGP ERFORMED BY: JAMA Dylanthania Pruovw[address] [facility] Centerin [place] [id number] Information: 073758,X29958 WBC (Bld) [#/Vol] 8.2 {x10E3/uL} Normal 4.0-10.5 [facility] Internal Medicine Work Phone: Comment on above: PATIENT WAS FASTINGP ERFORMED BY: JAMA RadhaRoger JiménezDsvgax4108 [facility] [id number] Information: 157762,[id number] LIPID PANEL (15015)Ordered B y: Corporate Legal Intern on 08-28-2011 Cholesterol [Mass/Vol] 171 mg/dL Normal 100-199 [facility] Work Phone: Comment on above: PATIENT WAS FASTINGP ERFORMED BY: JAMA RadhaRoger JiménezVmmrzr2484 [facility] [id number] Cholesterol in HDL [Mass/Vol] 54 mg/dL Normal [facility] Work Phone: Comment on above: According to ATP-III Guidelines, HDL-C >59 mg/dL is considered anegative risk factor for CHD. PATIENT WAS FASTINGP ERFORMED BY: JAMA Dylan Ugyzfj5377 [facility] [id number] Cholesterol in LDL [Mass/Vol] 97 mg/dL Normal 0-99 [facility] Work Phone: Comment on above: PATIENT WAS FASTINGP ERFORMED BY: JAMA LabCothania JiménezKfouzm5742 [facility] [id number] Cholesterol in LDL/Cholesterol in HDL [Mass ratio] 1.8 {ratio_units} Normal 0.0-3.6 [facility] Work Phone: Comment on above: PATIENT WAS FASTINGP ERFORMED BY: JAMA LabCo Vmtxji7003 [facility] [id number] Cholesterol in VLDL [Mass/Vol] 20 mg/dL Normal 5-40 [facility] Work Phone: Comment on above: PATIENT WAS FASTINGP ERFORMED BY: JAMA LabCothania Wcqcix2312 Jimenez RoadDublin [place] [id number] Triglyceride [Mass/Vol] 99 mg/dL Normal 0-149 [facility] Work Phone: Comment on above: PATIENT WAS FASTINGP ERFORMED BY: JAAM [facility] Hvindu3217 Jimenez RoadDublin [place] [id number] METABOLIC PANEL, COMPREHENSI VE (86582)Ordered By: Corporate Legal Intern on 08-28-2011 Albumin [Mass/Vol] 4.9 g/dL Normal 3.5-5.5 [facility] Internal Medicine Work Phone: Comment on above: PATIENT WAS FASTINGP ERFORMED BY: JAMA LabCothania Upmtvk1019 [address] RoadDublin [place] [id number] Albumin/Globulin [Mass ratio] 2.1 {ratio} Normal 1.1-2.5 [facility] Work Phone: Comment on above: PATIENT WAS FASTINGP ERFORMED BY: JAMA [facility] Kdyhar4023 Jimenez RoadDublin [place] [id number] ALP [Catalytic activity/Vol] 55 [iU]/L Normal 25-150 [facility] Work Phone: Comment on above: PATIENT WAS FASTINGP ERFORMED BY: JAMA [facility] Btgyym7120 Jimenez RoadDublin [place] [id number] ALT [Catalytic activity/Vol] 28 [iU]/L Normal 0-55 [facility] Work Phone: Comment on above: PATIENT WAS FASTINGP ERFORMED BY: JAMA [facility] Weulzn7322 [address] RoadDublin [place] [id number] AST [Catalytic activity/Vol] 25 [iU]/L Normal 0-40 [facility] Work Phone: Comment on above: PATIENT WAS FASTINGP ERFORMED BY: JAMA [facility] Gvlmzq4059 Jimenez RoadDublin [place] [id number] Bilirubin [Mass/Vol] 0.5 mg/dL Normal 0.0-1.2 [facility] Work Phone: Comment on above: PATIENT WAS FASTINGP ERFORMED BY: CB [facility] Trvvou8736 Jimenez RoadDublin [place] [id number] Calcium [Mass/Vol] 10.0 mg/dL Normal 8.7-10.2 [facility] Internal Medicine Work Phone: Comment on above: PATIENT WAS FASTINGP ERFORMED BY: CB [facility] Evnrgk4548 [address]enez RoadDublin [place] [id number] Chloride [Moles/Vol] 105 mmol/L Normal 97-108 [facility] Work Phone: Comment on above: PATIENT WAS FASTINGP ERFORMED BY: CB [facility] Bccpcf5557 [address] RoadDublin [place] [id number] CO2 [Moles/Vol] 20 mmol/L Normal 20-32 [facility] Internal Medicine Work Phone: Comment on above: PATIENT WAS FASTINGP ERFORMED BY: CB [facility] Buuhrm2607 [address] RoadDublin [place] [id number] Creatinine [Mass/Vol] 1.03 mg/dL Normal 0.76-1.27 [facility] Internal Medicine Work Phone: Comment on above: PATIENT WAS FASTINGP ERFORMED BY: CB [facility] Bkzzra3011 Jimenez RoadDublin [place] [id number] GFR/1.73 sq M predicted among blacks CKD-EPI (S/P/Bld) [Vol rate/Area] 95 mL/min/1.73 Normal [facility] Work Phone: Comment on above: PATIENT WAS FASTINGP ERFORMED BY: CB [facility] Lwbaiy4933 [address] RoadDublin [place] [id number] GFR/1.73 sq M predicted among non-blacks CKD-EPI (S/P/Bld) [Vol rate/Area] 83 mL/min/1.73 Normal [facility] Work Phone: Comment on above: PATIENT WAS FASTINGP ERFORMED BY: CB [facility] Vhcjzy5338 [address] RoadDublin [place] [id number] Globulin (S) [Mass/Vol] 2.3 g/dL Normal 1.5-4.5 [facility] Internal Medicine Work Phone: Comment on above: PATIENT WAS FASTINGP ERFORMED BY: JAMA [facility] Ilxepl0723 Jimenez RoadDublin [place] [id number] Glucose [Mass/Vol] 103 mg/dL Abnormal 65-99 [facility] Internal Medicine Work Phone: Comment on above: PATIENT WAS FASTINGP ERFORMED BY: JAMA [facility] Qpnjtc5793 [address] RoadDublin [place] [id number] Potassium [Moles/Vol] 4.2 mmol/L Normal 3.5-5.2 [facility] Internal Medicine Work Phone: Comment on above: PATIENT WAS FASTINGP ERFORMED BY: JAMA LabCo Bgjpnj8419 [address] RoadDublin [place] [id number] Protein [Mass/Vol] 7.2 g/dL Normal 6.0-8.5 [facility] Internal Medicine Work Phone: Comment on above: PATIENT WAS FASTINGP ERFORMED BY: JAMA LabCo Umpzsg8336 [address] RoadDublin [place] [id number] Sodium [Moles/Vol] 139 mmol/L Normal 134-144 [facility] Internal Medicine Work Phone: Comment on above: PATIENT WAS FASTINGP ERFORMED BY: JAMA LabCo Pjeowi6522 [address] RoadDublin [place] [id number] Urea nitrogen [Mass/Vol] 17 mg/dL Normal 6-24 [facility] Internal Medicine Work Phone: Comment on above: PATIENT WAS FASTINGP ERFORMED BY: JAMA [facility] Tjevgv4202 [address] RoadDublin [place] [id number] Urea nitrogen/Creatinine [Mass ratio] 17 mg/mg Normal 9-20 [facility] Internal Medicine Work Phone: Comment on above: PATIENT WAS FASTINGP ERFORMED BY: JAMA [facility] Ugkkdy9093 [address] RoadDublin [place] [id number] MICROALBUMINOrdered By: Syst em Glassine Machine Tender on 08-28-2011 Albumin DL <= 20 mg/L (U) [Mass/Vol] 7.5 ug/mL Normal 0.0-17.0 [facility] Work Phone: Comment on above: PATIENT WAS FASTINGP ERFORMED BY: StockLayouts6370 [facility]mentS[facility] [id number] Albumin/Creatinine (U) [Mass ratio] 4.9 {mg/g_creat} Normal 0.0-30.0 [facility] Work Phone: Comment on above: PATIENT WAS FASTINGP ERFORMED BY: StockLayouts6370 eVestmentin [place] [id number] Creatinine (U) [Mass/Vol] 151.7 mg/dL Normal 22.0-328.0 [facility] Work Phone: Comment on above: PATIENT WAS FASTINGP ERFORMED BY: StockLayouts6370 [facility]mentS[facility] [id number] PSA (PROSTATE SPECIFIC ANTIG EN) (V76.44)Ordered By: Corporate Legal Intern on 08-28-2011 Prostate specific Ag [Mass/Vol] 2.2 ng/mL Normal 0.0-4.0 [facility] Work Phone: Comment on above: Duroline ECLIA methodol ogy. .According to the [place] [employer], Serum PSA shoulddecrease and remain at undetectable levels after radicalprostatectomy. The AUA defines biochemical recurrence as an initialPSA value 0.2 ng/mL or greater followed by a subsequent confirmatoryPSA value 0.2 ng/mL or greater.Values obtained with different assay methods or kits cannot be usedinterchangeably. Results cannot be interpreted as absolute evidenceof the presence or absence of malignant disease. PATIENT WAS FASTINGP ERFORMED BY: StockLayouts6370 [facility]mentS[facility] [id number] TSH (72097)Ordered By: [employer]ine Machine Tender on 08-28-2011 TSH Qn 1.360 {uIU/mL} Normal 0.450-4.50 0 [facility] Work Phone: Comment on above: PATIENT WAS FASTINGP ERFORMED BY: CB [facility] Insfsa1308 Jimenez RoadDublin [place] [id number] URINALYSIS, W/ MICRO (75123) Ordered By: Corporate Legal Intern on 08-28-2011 Appearance (U) Clear Normal Comprehens johann Internal Medicine Work Phone: Comment on above: PATIENT WAS FASTINGP ERFORMED BY: JAMA [facility] Fwyabd0082 Jimenez RoadDublin [place] [id number] Bilirubin Ql (U) Negative Normal Comprehe nsive Internal Medicine Work Phone: Comment on above: PATIENT WAS FASTINGP ERFORMED BY: JAMA [facility] Nsjcrh9097 [address] RoadDublin [place] [id number] Color (U) Yellow Normal [facility] Work Phone: Comment on above: PATIENT WAS FASTINGP ERFORMED BY: JAMA LabRoger JiménezXlqgrn5835 Jimenez RoadDublin [place] [id number] Glucose Ql (U) Negative Normal Comprehens johann Internal Medicine Work Phone: Comment on above: PATIENT WAS FASTINGP ERFORMED BY: JAMA LabRoger JiménezEirtmo2804 [address] RoadDublin [place] [id number] Hemoglobin Ql (U) Negative Normal Compreh ensive Internal Medicine Work Phone: Comment on above: PATIENT WAS FASTINGP ERFORMED BY: JAMA LabRoger JiménezSfahfw1451 [address] RoadDublin [place] [id number] Ketones Ql (U) Negative Normal Comprehens johann Internal Medicine Work Phone: Comment on above: PATIENT WAS FASTINGP ERFORMED BY: JAMA [facility] Aqlesb0863 [address] RoadDublin [place] [id number] Leukocyte esterase Test strip Ql (U) Negative Normal [facility] Work Phone: Comment on above: PATIENT WAS FASTINGP ERFORMED BY: JAMA [facility] Ecuxeq8368 [address] RoadDublin [place] [id number] Microscopic observation LM Nom (Urine sed) See below: Normal [facility] Work Phone: Comment on above: PATIENT WAS FASTINGP ERFORMED BY: JAMA [facility] Cfefzj9544 [address] RoadDublin [place] [id number] Microscopic observation LM Nom (Urine sed) MICRON Normal [facility] Work Phone: Comment on above: Microscopic follows if indicated. PATIENT WAS FASTINGP ERFORMED BY: JAMA LabC[facility]6370 [facility] [id number] Nitrite Ql (U) Negative Normal Comprehens johann Internal Medicine Work Phone: Comment on above: PATIENT WAS FASTINGP ERFORMED BY: [facility]6370 [facility] [id number] pH (U) 5.0 [pH] Normal 5.0-7.5 [facility] Work Phone: Comment on above: PATIENT WAS FASTINGP ERFORMED BY: [facility]6370 [facility] [id number] Protein Ql (U) Negative Normal Comprehens johann Internal Medicine Work Phone: Comment on above: PATIENT WAS FASTINGP ERFORMED BY: [facility]6370 [facility] [id number] Specific gravity (U) [Rel density] 1.018 1 Normal 1.005-1.03 0 [facility] Internal Medicine Work Phone: Comment on above: PATIENT WAS FASTINGP ERFORMED BY: Lab[facility]6370 [facility] [id number] Urobilinogen Test strip (U) [Mass/Vol] 0.2 mg/dL Normal 0.0-1.9 Comprehensi Internal Medicine Work Phone: Comment on above: PATIENT WAS FASTINGP ERFORMED BY: Lab[facility]6370 [facility] [id number] Blood Glucose , Office ([phone])Ordered By: Yudith Vaz on 05-04-2011 Glucose Glucometer (BldC) [Moles/Vol] 85 1 Normal [facility] Work Phone: HgA1C , Office ([phone])Ordere d By: Yudith Vaz on 05-04-2011 HbA1c (Bld) [Mass fraction] 5.8 % Normal 4.6 - 7.1 [facility] Work Phone: LIPID PANEL (92821)Ordered B y: Corporate Legal Intern on 10-03-2010 Cholesterol [Mass/Vol] 164 mg/dL Normal 100-199 [facility] Work Phone: Comment on above: PATIENT WAS FASTINGP ERFORMED BY: LabCo Xqwllp5056 [facility] [id number] Information: 928021,I37770; appt 10/14/10 Cholesterol in HDL [Mass/Vol] 47 mg/dL Normal [facility] Work Phone: Comment on above: According to ATP-III Guidelines, HDL-C >59 mg/dL is considered anegative risk factor for CHD. PATIENT WAS FASTINGP ERFORMED BY: LabCo Nnjcqf1460 [facility] [id number] Information: 463094,F12125; appt 10/14/10 Cholesterol in LDL [Mass/Vol] 93 mg/dL Normal 0-99 [facility] Work Phone: Comment on above: PATIENT WAS FASTINGP ERFORMED BY: LabCo Lvnppn2143 [facility] [id number] Information: 699259,M56253; appt 10/14/10 Cholesterol in LDL/Cholesterol in HDL [Mass ratio] 2.0 {ratio_units} Normal 0.0-3.6 [facility] Work Phone: Comment on above: PATIENT WAS FASTINGP ERFORMED BY: LabCo Fjdwgq6997 [facility] [id number] Information: 258109,G68814; appt 10/14/10 Cholesterol in VLDL [Mass/Vol] 24 mg/dL Normal 5-40 [facility] Work Phone: Comment on above: PATIENT WAS FASTINGP ERFORMED BY: LabCo Kitgmn9101 [facility] [id number] Information: 368663,V47507; appt 8/26/11 Triglyceride [Mass/Vol] 120 mg/dL Normal 0-149 [facility] Work Phone: Comment on above: PATIENT WAS FASTINGP ERFORMED BY: JAMA Richardson Uvxrxp0108 [facility] [id number] Information: 783052,B62771; appt 10/14/10 CBC WITH MANUAL DIFF (67259) Ordered By: Corporate Legal Intern on 09-16-2010 Basophils (Bld) [#/Vol] 0.1 {x10E3/uL} Normal 0.0-0.2 [facility] Work Phone: Comment on above: PATIENT NOT FASTINGP ERFORMED BY: JAMA RadhaI-[facility] F[address]nlm[address] [id number] Information: 327734,O39262 Basophils/100 WBC (Bld) 1 % Normal 0-3 [facility] Work Phone: Comment on above: PATIENT NOT FASTINGP ERFORMED BY: Radha[address] [id number] Information: 198992,A95149 Eosinophils (Bld) [#/Vol] 0.4 {x10E3/uL} Normal 0.0-0.4 [facility] Work Phone: Comment on above: PATIENT NOT FASTINGP ERFORMED BY: [facility]6370 [facility] [id number] Information: 884137,H85977 Eosinophils/100 WBC (Bld) 5 % Normal 0-7 [facility] Work Phone: Comment on above: PATIENT NOT FASTINGP ERFORMED BY: [place] 9381970 [facility] [id number] Information: 989559,[id number] Erythrocyte distribution width (RBC) [Ratio] 12.8 % Normal 11.7-15.0 [facility] Work Phone: Comment on above: PATIENT NOT FASTINGP ERFORMED BY: LabKaren Ville 1094270 [facility] [id number] Information: 855706,X70829 Hematocrit (Bld) [Volume fraction] 43.0 % Normal 36.0-50.0 [facility] Work Phone: Comment on above: PATIENT NOT FASTINGP ERFORMED BY: JAMA Nogueira6370 [facility] [id number] Information: 554203,J10500 Hemoglobin (Bld) [Mass/Vol] 14.1 g/dL Normal 12.5-17.0 [facility] Work Phone: Comment on above: PATIENT NOT FASTINGP ERFORMED BY: JAMA aGrciaCo Dpnwrv4043 [facility] [id number] Information: 634107,N96288 Immature granulocytes (Bld) [#/Vol] 0.0 {x10E3/uL} Normal 0.0-0.1 [facility] Work Phone: Comment on above: PATIENT NOT FASTINGP ERFORMED BY: JAMA Richardson Arebup7816 [facility] [id number] Information: 249820,V13007 Immature granulocytes/100 WBC (Bld) 0 % Normal 0-2 [facility] Work Phone: Comment on above: Please note refere nce interval change PATIENT NOT FASTINGP ERFORMED BY: JAMA Richardson Xoovzt4190 [facility] [id number] Information: 193767,E30956 Lymphocytes (Bld) [#/Vol] 2.5 {x10E3/uL} Normal 0.7-4.5 [facility] Work Phone: Comment on above: PATIENT NOT FASTINGP ERFORMED BY: JAMA LabCo Vcxkwl9187 [address] [facility] [id number] Information: 897680,S96453 Lymphocytes/100 WBC (Bld) 28 % Normal 14-46 [facility] Work Phone: Comment on above: PATIENT NOT FASTINGP ERFORMED BY: JAMA LabCo Hpqhea6349 [facility] [id number] Information: 393644,H20215 MCH (RBC) [Entitic mass] 29.5 pg Normal 27.0-34.0 [facility] Internal Medicine Work Phone: Comment on above: PATIENT NOT FASTINGP ERFORMED BY: JAMA Richardson Vyybyn4512 [facility] [id number] Information: 669776,W23497 MCHC (RBC) [Mass/Vol] 32.8 g/dL Normal 32.0-36.0 [facility] Internal Medicine Work Phone: Comment on above: PATIENT NOT FASTINGP ERFORMED BY: [address] [id number] Information: 499473,N14392 MCV (RBC) [Entitic vol] 90 fL Normal 80-98 [facility] Internal Medicine Work Phone: Comment on above: PATIENT NOT FASTINGP ERFORMED BY: [address] [id number] Information: [id number] Monocytes (Bld) [#/Vol] 0.9 {x10E3/uL} Normal 0.1-1.0 [facility] Internal Medicine Work Phone: Comment on above: PATIENT NOT FASTINGP ERFORMED BY: [place] 9381970 [facility] [id number] Information: [id number] Monocytes/100 WBC (Bld) 11 % Normal 4-13 [facility] Work Phone: Comment on above: PATIENT NOT FASTINGP ERFORMED BY: [place] 9381970 [facility] [id number] Information: 006851,[id number] Neutrophils (Bld) [#/Vol] 5.0 {x10E3/uL} Normal 1.8-7.8 [facility] Internal Medicine Work Phone: Comment on above: PATIENT NOT FASTINGP ERFORMED BY: [place] 9381970 [facility] [id number] Information: 026682,[id number] Neutrophils/100 WBC (Bld) 55 % Normal 40-74 [facility] Internal Medicine Work Phone: Comment on above: PATIENT NOT FASTINGP ERFORMED BY: JAMA Teresa Nogueira6370 [facility] [id number] Information: [id number],[id number] Platelets (Bld) [#/Vol] 236 {x10E3/uL} Normal 140-415 [facility] Internal Medicine Work Phone: Comment on above: PATIENT NOT FASTINGP ERFORMED BY: JAMA Dylan Johjrd0862 [facility] [id number] Information: [id number],[id number] RBC (Bld) [#/Vol] 4.78 {x10E6/uL} Normal 4.10-5.60 [facility] Internal Medicine Work Phone: Comment on above: PATIENT NOT FASTINGP ERFORMED BY: JAMA Jiménezlin6370 [facility] [id number] Information: 266590,Q92403 WBC (Bld) [#/Vol] 8.9 {x10E3/uL} Normal 4.0-10.5 [facility] Internal Medicine Work Phone: Comment on above: PATIENT NOT FASTINGP ERFORMED BY: JAMA Dylanthania JiménezXfrbdt4612 [facility] [id number] Information: [id number],[id number] METABOLIC PANEL, COMPREHENSI VE (97741)Ordered By: Corporate Legal Intern on 09-16-2010 Albumin [Mass/Vol] 4.9 g/dL Normal 3.5-5.5 [facility] Internal Medicine Work Phone: Comment on above: PATIENT NOT FASTINGP ERFORMED BY: JAMA Dylanthania Cyswce8082 [facility] [id number] Albumin/Globulin [Mass ratio] 2.0 {ratio} Normal 1.1-2.5 [facility] Internal Medicine Work Phone: Comment on above: PATIENT NOT FASTINGP ERFORMED BY: JAMA RadhaRoger Unmoww0503 [address]enez RoadDublin [place] [id number] ALP [Catalytic activity/Vol] 54 [iU]/L Normal 25-150 [facility] Work Phone: Comment on above: PATIENT NOT FASTINGP ERFORMED BY: CB [facility] Mnyyuf6019 [address]enez RoadDublin [place] [id number] ALT [Catalytic activity/Vol] 43 [iU]/L Normal 0-55 [facility] Work Phone: Comment on above: PATIENT NOT FASTINGP ERFORMED BY: CB [facility] Rkzdlk9131 [address] RoadDublin [place] [id number] AST [Catalytic activity/Vol] 41 [iU]/L Abnormal 0-40 [facility] Work Phone: Comment on above: PATIENT NOT FASTINGP ERFORMED BY: [facility] Lepwtu9614 [address]enez RoadDublin [place] [id number] Bilirubin [Mass/Vol] 0.3 mg/dL Normal 0.0-1.2 [facility] Internal [facility] Work Phone: Comment on above: PATIENT NOT FASTINGP ERFORMED BY: [facility] Qjdqhw5777 Jimenez RoadDublin [place] [id number] Calcium [Mass/Vol] 10.0 mg/dL Normal 8.7-10.2 [facility] Internal Medicine Work Phone: Comment on above: PATIENT NOT FASTINGP ERFORMED BY: [facility] Znprhx4405 [address]enez RoadDublin [place] [id number] Chloride [Moles/Vol] 103 mmol/L Normal 97-108 [facility] Internal [facility] Work Phone: Comment on above: PATIENT NOT FASTINGP ERFORMED BY: CB [facility] Zrzhvj7128 [address] RoadDublin [place] [id number] CO2 [Moles/Vol] 23 mmol/L Normal 20-32 [facility] Internal Medicine Work Phone: Comment on above: PATIENT NOT FASTINGP ERFORMED BY: CB [facility] Fikeaw4569 [address] RoadDublin [place] [id number] Creatinine [Mass/Vol] 1.04 mg/dL Normal 0.76-1.27 [facility] prehensive Internal Medicine Work Phone: Comment on above: PATIENT NOT FASTINGP ERFORMED BY: JAMA LabAdarsh Galwrw6244 [facility] [id number] GFR/1.73 sq M predicted among blacks MDRD (S/P/Bld) [Vol rate/Area] 95 mL/min/{1.73_m2} Normal Comprehensiv e Internal Medicine Work Phone: Comment on above: Note: A persistent e GFR <60 mL/min/1.73 m2 (3 months or more) mayindicate chronic kidney disease. An eGFR >59 mL/min/1.73 m2 with anelevated urine protein also may indicate chronic kidney disease.Calculated using CKD-EPI formula. PATIENT NOT FASTINGP ERFORMED BY: JAMA [facility] Qyrqki5825 [facility] [id number] GFR/1.73 sq M predicted among non-blacks CKD-EPI (S/P/Bld) [Vol rate/Area] 82 mL/min/1.73 Normal [facility] Work Phone: Comment on above: PATIENT NOT FASTINGP ERFORMED BY: JAMA LabAdarsh Clfldf7836 [facility] [id number] Globulin (S) [Mass/Vol] 2.5 g/dL Normal 1.5-4.5 [facility] Internal Medicine Work Phone: Comment on above: PATIENT NOT FASTINGP ERFORMED BY: CB [facility] Mxlhqb2017 [facility] [id number] Glucose [Mass/Vol] 92 mg/dL Normal 65-99 [facility] Internal Medicine Work Phone: Comment on above: PATIENT NOT FASTINGP ERFORMED BY: JAMA [facility] Krtosi0476 [facility] [id number] Potassium [Moles/Vol] 4.2 mmol/L Normal 3.5-5.2 [facility] prehensive Internal Medicine Work Phone: Comment on above: PATIENT NOT FASTINGP ERFORMED BY: CB [facility] Zbyltb9974 [address] RoadDuin [place] [id number] Protein [Mass/Vol] 7.4 g/dL Normal 6.0-8.5 [facility] Internal Medicine Work Phone: Comment on above: PATIENT NOT FASTINGP ERFORMED BY: CB [facility] Todeum8743 [address] RoadDublin [place] [id number] Sodium [Moles/Vol] 141 mmol/L Normal 135-145 [facility] Internal Medicine Work Phone: Comment on above: PATIENT NOT FASTINGP ERFORMED BY: CB [facility] Atykzr0834 [address] RoadDublin [place] [id number] Urea nitrogen [Mass/Vol] 18 mg/dL Normal 6-24 [facility] Work Phone: Comment on above: PATIENT NOT FASTINGP ERFORMED BY: CB [facility] Awxuae6483 [address] RoadDublin [place] [id number] Urea nitrogen/Creatinine [Mass ratio] 17 mg/mg Normal 9-20 [facility] Work Phone: Comment on above: PATIENT NOT FASTINGP ERFORMED BY: CB [facility] Ljaskp4734 [address] RoadDublin [place] [id number] TSH (55998)Ordered By: Hermelindo m Glassine Machine Tender on 09-16-2010 TSH Qn 1.660 {uIU/mL} Normal 0.450-4.50 0 [facility] Work Phone: Comment on above: PATIENT NOT FASTINGP ERFORMED BY: CB [facility] Fcnwnc7933 [address] RoadDublin [place] [id number] Blood Glucose , Office (4996 2)Ordered By: Yudith Vaz on 05-30-2010 Glucose Glucometer (BldC) [Moles/Vol] 102 1 Normal [facility] Work Phone: HgA1C , Office (71120)Ordere d By: Yudith Vaz on 05-30-2010 HbA1c (Bld) [Mass fraction] 6.0 % Normal 4.6 - 7.1 [facility] Work Phone: MICROALBUMINOrdered By: Syst em Glassine Machine Tender on 05-24-2010 Albumin DL <= 20 mg/L (U) [Mass/Vol] 7.3 ug/mL Normal 0.0-17.0 [facility] Work Phone: Comment on above: PATIENT NOT FASTINGP ERFORMED BY: JAMA Nogueira6370 [address] RoadDublin [place] [id number] Albumin/Creatinine (U) [Mass ratio] 5.0 {mg/g_creat} Normal 0.0-30.0 [facility] Work Phone: Comment on above: PATIENT NOT FASTINGP ERFORMED BY: JAMA Teresa Izcssx6772 [address] RoadDublin [place] [id number] Creatinine (U) [Mass/Vol] 145.3 mg/dL Normal 22.0-328.0 [facility] Work Phone: Comment on above: PATIENT NOT FASTINGP ERFORMED BY: JAMA Teresa Cnqweb6475 [address] Roadblin [place] [id number] URINALYSIS, W/ MICRO (72056) Ordered By: Corporate Legal Intern on 05-24-2010 Appearance (U) Clear Normal Comprehens johann Internal Medicine Work Phone: Comment on above: PATIENT NOT FASTINGP ERFORMED BY: JAMA Dylanthania JiménezSmhzms7224 [address] RoadDublin [place] [id number] Information: [id number] Bilirubin Ql (U) Negative Normal Comprehe nsive Internal Medicine Work Phone: Comment on above: PATIENT NOT FASTINGP ERFORMED BY: JAMA Dylanhtania JiménezVahizc9686 Jimenez RoadCarolinas Continuecare Hospital [facility] Pinevillein [place] [id number] Information: [id number] Color (U) Yellow Normal [facility] Work Phone: Comment on above: PATIENT NOT FASTINGP ERFORMED BY: JAMA Dylanthania JiménezXrtihg7477 [address] RoadDublin [place] [id number] Information: L40837 Glucose Ql (U) Negative Normal Comprehens johann Internal Medicine Work Phone: Comment on above: PATIENT NOT FASTINGP ERFORMED BY: JAMA Dylanthania JiménezIcjxsg7976 [address] RoadDublin [place] [id number] Information: C98692 Hemoglobin Ql (U) Negative Normal Compreh ensive Internal Medicine Work Phone: Comment on above: PATIENT NOT FASTINGP ERFORMED BY: JAMA [facility] Jylwag3711 [address] RoadFormerly [facility] [id number] Information: C11331 Ketones Ql (U) Negative Normal Comprehens johann Internal Medicine Work Phone: Comment on above: PATIENT NOT FASTINGP ERFORMED BY: CB [facility] Rtrqbn3341 [address] [facility] [id number] Information: S39609 Leukocyte esterase Test strip Ql (U) Negative Normal [facility] Work Phone: Comment on above: PATIENT NOT FASTINGP ERFORMED BY: CB [facility] Flcmbf8658 [address] [facility] [id number] Information: [id number] Microscopic observation LM Nom (Urine sed) See below: Normal [facility] Work Phone: Comment on above: PATIENT NOT FASTINGP ERFORMED BY: [facility] Uxixae6921 [address] [facility] [id number] Information: D65119 Microscopic observation LM Nom (Urine sed) MICRON Normal [facility] Work Phone: Comment on above: Microscopic follows if indicated. PATIENT NOT FASTINGP ERFORMED BY: JAMA [facility] Uwbufu3463 [address] [facility] [id number] Information: W59601 Nitrite Ql (U) Negative Normal Comprehens johann Internal Medicine Work Phone: Comment on above: PATIENT NOT FASTINGP ERFORMED BY: CB [facility] Oxemxn4147 [address] [facility] [id number] Information: S42560 pH (U) 5.0 [pH] Normal 5.0-7.5 [facility] Work Phone: Comment on above: PATIENT NOT FASTINGP ERFORMED BY: CB [facility] Jgtwro0933 Jimenez RoadCarolinas Continuecare Hospital [facility] Pinevillein [place] [id number] Information: H83137 Protein Ql (U) Negative Normal Comprehens johann Internal Medicine Work Phone: Comment on above: PATIENT NOT FASTINGP ERFORMED BY: [facility]6370 [facility] [id number] Information: A06632 Specific gravity (U) [Rel density] 1.019 1 Normal 1.005-1.03 0 [facility] Work Phone: Comment on above: PATIENT NOT FASTINGP ERFORMED BY: [address] [id number] Information: [id number] Urobilinogen Test strip (U) [Mass/Vol] 0.2 mg/dL Normal 0.0-1.9 [facility] Work Phone: Comment on above: PATIENT NOT FASTINGP ERFORMED BY: [address] [id number] Information: D60483 CBC WITH MANUAL DIFF (72133) Ordered By: Corporate Legal Intern on 05-23-2010 Basophils (Bld) [#/Vol] 0.0 {x10E3/uL} Normal 0.0-0.2 [facility] Work Phone: Comment on above: PATIENT WAS FASTINGP ERFORMED BY: [facility]6370 [facility] [id number] Information: 643072,Q16918 Basophils/100 WBC (Bld) 0 % Normal 0-3 [facility] Work Phone: Comment on above: PATIENT WAS FASTINGP ERFORMED BY: [facility]6370 [facility] [id number] Information: 222752,G49233 Eosinophils (Bld) [#/Vol] 0.2 {x10E3/uL} Normal 0.0-0.4 [facility] Work Phone: Comment on above: PATIENT WAS FASTINGP ERFORMED BY: [facility]6370 [facility] [id number] Information: 006466,A35630 Eosinophils/100 WBC (Bld) 2 % Normal 0-7 [facility] Work Phone: Comment on above: PATIENT WAS FASTINGP ERFORMED BY: [place] 9381970 [facility] [id number] Information: 356080,L61601 Erythrocyte distribution width (RBC) [Ratio] 12.9 % Normal 11.7-15.0 [facility] Work Phone: Comment on above: PATIENT WAS FASTINGP ERFORMED BY: [address] [id number] Information: 448554,W06842 Hematocrit (Bld) [Volume fraction] 40.3 % Normal 36.0-50.0 [facility] Work Phone: Comment on above: PATIENT WAS FASTINGP ERFORMED BY: [address] [id number] Information: [id number] Hemoglobin (Bld) [Mass/Vol] 14.5 g/dL Normal 12.5-17.0 [facility] Work Phone: Comment on above: PATIENT WAS FASTINGP ERFORMED BY: [address] [id number] Information: 208065,C61091 Immature granulocytes (Bld) [#/Vol] 0.0 {x10E3/uL} Normal 0.0-0.1 [facility] Work Phone: Comment on above: PATIENT WAS FASTINGP ERFORMED BY: [place] 9381970 [facility] [id number] Information: 904028,M69885 Immature granulocytes/100 WBC (Bld) 0 % Normal 0-1 [facility] Work Phone: Comment on above: PATIENT WAS FASTINGP ERFORMED BY: [place] 9381970 [facility] [id number] Information: [id number] Lymphocytes (Bld) [#/Vol] 3.0 {x10E3/uL} Normal 0.7-4.5 [facility] Work Phone: Comment on above: PATIENT WAS FASTINGP ERFORMED BY: JAMA Garcia[address] [id number] Information: 685358,P48545 Lymphocytes/100 WBC (Bld) 34 % Normal 14-46 [facility] Work Phone: Comment on above: PATIENT WAS FASTINGP ERFORMED BY: [address] [id number] Information: 061019,W75941 MCH (RBC) [Entitic mass] 31.6 pg Normal 27.0-34.0 [facility] Work Phone: Comment on above: PATIENT WAS FASTINGP ERFORMED BY: [address] [id number] Information: 447861,T78344 MCHC (RBC) [Mass/Vol] 36.0 g/dL Normal 32.0-36.0 [facility] Internal Medicine Work Phone: Comment on above: PATIENT WAS FASTINGP ERFORMED BY: [address] [id number] Information: 827802,Y68594 MCV (RBC) [Entitic vol] 88 fL Normal 80-98 [facility] Work Phone: Comment on above: PATIENT WAS FASTINGP ERFORMED BY: [address] [id number] Information: 631431,L37706 Monocytes (Bld) [#/Vol] 1.0 {x10E3/uL} Normal 0.1-1.0 [facility] Work Phone: Comment on above: PATIENT WAS FASTINGP ERFORMED BY: [address] [id number] Information: 907573,[id number] Monocytes/100 WBC (Bld) 11 % Normal 4-13 [facility] Work Phone: Comment on above: PATIENT WAS FASTINGP ERFORMED BY: JAMA [facility] Ioubvg7126 [facility] [id number] Information: 286919,Y31460 Neutrophils (Bld) [#/Vol] 4.7 {x10E3/uL} Normal 1.8-7.8 [facility] Work Phone: Comment on above: PATIENT WAS FASTINGP ERFORMED BY: JAMA [facility] Pkjnju5418 [facility] [id number] Information: 189170,B86926 Neutrophils/100 WBC (Bld) 53 % Normal 40-74 [facility] Work Phone: Comment on above: PATIENT WAS FASTINGP ERFORMED BY: JAMA [facility] Nrgmrj5916 [facility] [id number] Information: 806903,X35765 Platelets (Bld) [#/Vol] 236 {x10E3/uL} Normal 140-415 [facility] Internal Medicine Work Phone: Comment on above: PATIENT WAS FASTINGP ERFORMED BY: JAMA [facility] Iupsbo4023 [facility] [id number] Information: 749159,L91460 RBC (Bld) [#/Vol] 4.59 {x10E6/uL} Normal 4.10-5.60 [facility] Internal Medicine Work Phone: Comment on above: PATIENT WAS FASTINGP ERFORMED BY: JAMA [facility] Wgeomg8545 [facility] [id number] Information: 442066,E18107 WBC (Bld) [#/Vol] 9.0 {x10E3/uL} Normal 4.0-10.5 [facility] Internal Medicine Work Phone: Comment on above: PATIENT WAS FASTINGP ERFORMED BY: JAMA [facility] Tfmzho5905 [facility] [id number] Information: 058414,[id number] HEPATIC FUNCTION PANEL (8007 6)Ordered By: Corporate Legal Intern on 05-23-2010 Bilirubin.direct [Mass/Vol] 0.18 mg/dL Normal 0.00-0.40 [facility] Work Phone: Comment on above: PATIENT WAS FASTINGP ERFORMED BY: JAMA LabAdarsh Avtsfx0485 [address] [facility]bl[facility] [place] [id number] LIPID PANEL (11217)Ordered B y: Corporate Legal Intern on 05-23-2010 Cholesterol [Mass/Vol] 161 mg/dL Normal 100-199 [facility] Work Phone: Comment on above: PATIENT WAS FASTINGP ERFORMED BY: JAMA [facility] Vgelbq6401 [address] Roadblin [place] [id number] Cholesterol in HDL [Mass/Vol] 44 mg/dL Normal [facility] Work Phone: Comment on above: According to ATP-III Guidelines, HDL-C >59 mg/dL is considered anegative risk factor for CHD. PATIENT WAS FASTINGP ERFORMED BY: JAMA LabAdarsh Ejqwpg0834 [address] [facility] [place] [id number] Cholesterol in LDL [Mass/Vol] 87 mg/dL Normal 0-99 [facility] Work Phone: Comment on above: PATIENT WAS FASTINGP ERFORMED BY: JAMA Dylanthania JiménezDqazjf8174 [facility]in [place] [id number] Cholesterol in LDL/Cholesterol in HDL [Mass ratio] 2.0 {ratio_units} Normal 0.0-3.6 [facility] Work Phone: Comment on above: PATIENT WAS FASTINGP ERFORMED BY: JAMA [facility] Mnatuh7664 [address] [facility]in [place] [id number] Cholesterol in VLDL [Mass/Vol] 30 mg/dL Normal 5-40 [facility] Work Phone: Comment on above: PATIENT WAS FASTINGP ERFORMED BY: JAMA [facility] Uztsoy2134 [address] [facility] CenterD[facility] [place] [id number] Triglyceride [Mass/Vol] 151 mg/dL Abnormal 0-149 [facility] Work Phone: Comment on above: PATIENT WAS FASTINGP ERFORMED BY: JAMA [facility] Dvkwqj1483 [address] RoadDublin [place] [id number] METABOLIC PANEL, COMPREHENSI VE (52504)Ordered By: Corporate Legal Intern on 05-23-2010 Albumin [Mass/Vol] 4.8 g/dL Normal 3.5-5.5 [facility] Internal Medicine Work Phone: Comment on above: PATIENT WAS FASTINGP ERFORMED BY: JAMA LabRoger JiménezNxmsiw5619 [address] RoadDublin [place] [id number] Albumin/Globulin [Mass ratio] 1.8 {ratio} Normal 1.1-2.5 [facility] Work Phone: Comment on above: PATIENT WAS FASTINGP ERFORMED BY: JAMA LabRoger JiménezRoaxsu9486 [address] RoadDublin [place] [id number] ALP [Catalytic activity/Vol] 57 [iU]/L Normal 25-150 [facility] Work Phone: Comment on above: PATIENT WAS FASTINGP ERFORMED BY: JAMA LabRoger JiménezRszmrh5123 [address] RoadDublin [place] [id number] ALT [Catalytic activity/Vol] 38 [iU]/L Normal 0-55 [facility] Work Phone: Comment on above: PATIENT WAS FASTINGP ERFORMED BY: JAMA LabRoger Xrsklh1855 Jimenze RoadDublin [place] [id number] AST [Catalytic activity/Vol] 35 [iU]/L Normal 0-40 [facility] Work Phone: Comment on above: PATIENT WAS FASTINGP ERFORMED BY: JAMA LabRoger Abcltl0642 [address] RoadDublin [place] [id number] Bilirubin [Mass/Vol] 0.7 mg/dL Normal 0.0-1.2 [facility] Internal Medicine Work Phone: Comment on above: PATIENT WAS FASTINGP ERFORMED BY: JAMA LabCothania Khwvxd8440 [address] RoadDublin [place] [id number] Calcium [Mass/Vol] 9.9 mg/dL Normal 8.7-10.2 [facility] Internal Medicine Work Phone: Comment on above: PATIENT WAS FASTINGP ERFORMED BY: JAMA [facility] Gehzeo6794 Jimenez RoadDuin [place] [id number] Chloride [Moles/Vol] 101 mmol/L Normal 97-108 Comp rehensive Internal Medicine Work Phone: Comment on above: PATIENT WAS FASTINGP ERFORMED BY: [facility] Lblwae7467 Jimenez RoadCarolinas [facility]care [facility]villein [place] [id number] CO2 [Moles/Vol] 22 mmol/L Normal 20-32 Comprehen sive Internal Medicine Work Phone: Comment on above: PATIENT WAS FASTINGP ERFORMED BY: [facility] Pogiqf3316 [address] RoadFormerly [facility] [id number] Creatinine [Mass/Vol] 1.08 mg/dL Normal 0.76-1.27 [facility] Work Phone: Comment on above: PATIENT WAS FASTINGP ERFORMED BY: [facility] Wddhgo3882 [address] [facility] [id number] GFR/1.73 sq M predicted among blacks MDRD (S/P/Bld) [Vol rate/Area] 91 mL/min/{1.73_m2} Normal Comprehensiv e Internal Medicine Work Phone: Comment on above: Note: A persistent e GFR <60 mL/min/1.73 m2 (3 months or more) mayindicate chronic kidney disease. An eGFR >59 mL/min/1.73 m2 with anelevated urine protein also may indicate chronic kidney disease.Calculated using CKD-EPI formula. PATIENT WAS FASTINGP ERFORMED BY: [facility] Smbypt4176 [address] [facility] [id number] GFR/1.73 sq M predicted among non-blacks CKD-EPI (S/P/Bld) [Vol rate/Area] 78 mL/min/1.73 Normal [facility] Work Phone: Comment on above: PATIENT WAS FASTINGP ERFORMED BY: [facility] Zfqwml2605 [address] [facility] [id number] Globulin (S) [Mass/Vol] 2.6 g/dL Normal 1.5-4.5 [facility] Work Phone: Comment on above: PATIENT WAS FASTINGP ERFORMED BY: JAMA [facility] Oehtpl4835 [address] RoadDublin [place] [id number] Glucose [Mass/Vol] 89 mg/dL Normal 65-99 [facility] Internal Medicine Work Phone: Comment on above: PATIENT WAS FASTINGP ERFORMED BY: JAMA [facility] Drqeri0977 Jimenez RoadCarolinas Continuecare Hospital [facility]villein [place] [id number] Potassium [Moles/Vol] 4.0 mmol/L Normal 3.5-5.2 [facility] Internal Medicine Work Phone: Comment on above: PATIENT WAS FASTINGP ERFORMED BY: JAMA [facility] Qtftxe7779 [address] RoadCarolinas Continuecare Hospital [facility]in [place] [id number] Protein [Mass/Vol] 7.4 g/dL Normal 6.0-8.5 [facility] Internal Medicine Work Phone: Comment on above: PATIENT WAS FASTINGP ERFORMED BY: JAMA [facility] Lxlyyi6241 [address]enez RoadCarolinas Continuecare Hospital [facility]in [place] [id number] Sodium [Moles/Vol] 137 mmol/L Normal 135-145 [facility] Internal Medicine Work Phone: Comment on above: PATIENT WAS FASTINGP ERFORMED BY: JAMA [facility] Uuuixn4236 [address] [facility] [id number] Urea nitrogen [Mass/Vol] 12 mg/dL Normal 6-24 [facility] Internal Medicine Work Phone: Comment on above: PATIENT WAS FASTINGP ERFORMED BY: JAMA [facility] Egkgyf2049 [address] [facility] [id number] Urea nitrogen/Creatinine [Mass ratio] 11 mg/mg Normal 9-20 [facility] Internal Medicine Work Phone: Comment on above: PATIENT WAS FASTINGP ERFORMED BY: CB [facility] Rofnwi2432 Jimenez RoadCarolinas Continuecare Hospital [facility] Pinevillein [place] [id number] TSH ([id number])Ordered By: Hermelindo Kennedy on 05-23-2010 TSH Qn 1.350 {uIU/mL} Normal 0.450-4.50 0 [facility] Work Phone: Comment on above: PATIENT WAS FASTINGP ERFORMED BY: [facility] [id number] [facility] [id number] Blood Glucose , Office (8296 2)Ordered By: Yudith Vaz on 01-31-2010 Glucose Glucometer (BldC) [Moles/Vol] 98 1 Normal [facility] Work Phone: HgA1C , Office (06948)Ordere d By: Yudith Vaz on 01-31-2010 HbA1c (Bld) [Mass fraction] 5.8 % Normal 4.6 - 7.1 [facility] Work Phone: Blood Glucose , Office (8296 2)Ordered By: Yudith Vaz on 10-13-2009 Glucose Glucometer (BldC) [Moles/Vol] 98 1 Normal [facility] Work Phone: HgA1C , Office ([id number])Ordere d By: Yudith Vaz on 10-13-2009 HbA1c (Bld) [Mass fraction] 5.7 % Normal 4.6 - 7.1 [facility] Work Phone: LIPOPROTEIN, BLD, BY NMR ([id number] 089)Ordered By: Corporate Legal Intern on 09-30-2009 Cholesterol [Mass/Vol] 231 mg/dL Abnormal [facility] Work Phone: Comment on above: PATIENT NOT FASTINGP ERFORMED BY: S7 [employer] Xgk1971 [facility] [id number] Information: [id number] Cholesterol in HDL [Mass/Vol] 0.9 umol/L Abnormal [facility] Work Phone: Comment on above: PATIENT NOT FASTINGP ERFORMED BY: S7 [employer] Uxh6629 [facility] [id number] Information: [id number] Cholesterol in HDL [Mass/Vol] 49 mg/dL Normal [facility] Work Phone: Comment on above: PATIENT NOT FASTINGP ERFORMED BY: S7 [employer] Jbq0214 [facility] [id number] Information: [id number] Cholesterol in LDL [Mass/Vol] 161 mg/dL Abnormal [facility] Work Phone: Comment on above: LDL-C is inaccurate if patient is nonfasting..Optimal < 100Above optimal 100 - 129Borderline 130 - 159High 160 - 189Very high > 189. PATIENT NOT FASTINGP ERFORMED BY: S7 LipoSciPixafy Row0835 [facility] [id number] Information: [id number] Lipoprotein.alpha [Moles/Vol] 34.0 umol/L Normal [facility] Work Phone: Comment on above: PATIENT NOT FASTINGP ERFORMED BY: S7 [employer] Bgk1777 [facility] [id number] Information: [id number] Lipoprotein.beta.subp article [Entitic length] 20.3 nm Abnormal [facility] Work Phone: Comment on above: INTERPRETATIVE INFORMATIONPARTICLE CONCENTRATION AND SIZE<--Lower CVD Risk Higher CVD Risk-->LDL AND HDL PARTICLES Percentile in Reference PopulationHDL-P (total) High 75th 50th 25th Low>34.9 34.9 30.5 26.7 <26.7.Small LDL-P Low 25th 50th 75th High<117 117 527 839 >839.LDL Size <-Large (Pattern A)-> <-Small (Pattern B)->23.0 20.6 20.5 19.0 PATIENT NOT FASTINGP ERFORMED BY: [facility] Dol0197 [facility] [id number] Information: [id number] Lipoprotein.beta.subp article [Moles/Vol] 2049 nmol/L Abnormal [facility] Work Phone: Comment on above: Low < 1000Moderate 1 000 - 1299Borderline-High 1300 - 1599High 1600 - 2000Very High > 2000 PATIENT NOT FASTINGP ERFORMED BY: S7 [employer] Uyl6032 [facility] [id number] Information: [id number] Lipoprotein.beta.subp article.small [Moles/Vol] 1213 nmol/L Abnormal [facility] Work Phone: Comment on above: PATIENT NOT FASTINGP ERFORMED BY: S7 [employer] Xkv0560 [facility] [id number] Information: [id number] Triglyceride [Mass/Vol] 106 mg/dL Normal [facility] Work Phone: Comment on above: PATIENT NOT FASTINGP ERFORMED BY: S7 [employer] Jgo3923 [facility] [id number] Information: [id number] LIPOPROTEIN, BLD, BY NMR (70250) 5.5 nmol/L Abnormal [facility] Work Phone: Comment on above: PATIENT NOT FASTINGP ERFORMED BY: S7 [employer] Zyd9347 [facility] [id number] Information: [id number] LIPOPROTEIN, BLD, BY NMR (59780) 1213 nmol/L Abnormal [facility] Work Phone: Comment on above: PATIENT NOT FASTINGP ERFORMED BY: S7 [employer] Sae3639 [facility] [id number] Information: [id number] LIPOPROTEIN, BLD, BY NMR (13817) < 8.3 Abnormal [facility] Work Phone: Comment on above: Small LDL-P, LDL Par ticle Size, Large HDL-P, Large VLDL-PVLDL Size, HDL Size, HDL Particle, and LP-IR Scorehave been validated by [employer] but not cleared by US FDA;the clinical utility of these test results has not been fully established. PATIENT NOT FASTINGP ERFORMED BY: S7 [employer] Kvo7764 [facility] HospitaldougCro[facility] [id number] Information: [id number] LIPOPROTEIN, BLD, BY NMR (00259) 20.3 nm Abnormal [facility] Work Phone: Comment on above: PATIENT NOT FASTINGP ERFORMED BY: S7 [employer] Pxo3633 [facility] [id number] Information: [id number] LIPOPROTEIN, BLD, BY NMR (84900) 83 1 Abnormal [facility] Work Phone: Comment on above: LP-IR Score is inacc urate if patient is non-fasting.The LP-IR Score combines the information from Large VLDL-P,Small LDL-P, Large HDL-P, VLDL Size, LDL Size and HDL Sizeto give improved assessment of insulin resistance anddiabetes risk. I NSULIN RESISTANCE / DIABETES RISK MARKERS<--Insulin Sensitive Insulin Resistant-->Percentile in Reference PopulationLarge VLDL-P Low 25th 50th 75th High<0.9 0.9 2.7 6.9 >6.9.Small LDL-P Low 25th 50th 75th High<117 117 527 839 >839.Large HDL-P High 75th 50th 25th Low>7.3 7.3 4.8 3.1 <3.1.VLDL Size Small 25th 50th 75th Large<42.4 42.4 46.6 52.5 >52.5.LDL Size Large 75th 50th 25th Small>21.2 21.2 20.8 20.4 <20.4.HDL Size Large 75th 50th 25th Small>9.6 9.6 9.2 8.9 >8.9Insulin Resistance ScoreLP-IR SCORE Low 25th 50th 75th High<27 27 45 63 >63 PATIENT NOT FASTINGP ERFORMED BY: S7 [employer] Ute1665 [facility] [id number] Information: [id number] LIPOPROTEIN, BLD, BY NMR (14902) 56.5 nm Abnormal [facility] Work Phone: Comment on above: PATIENT NOT FASTINGP ERFORMED BY: S7 [employer] Jli4602 [facility] [id number] Information: [id number] Blood Glucose , Office (1496 2)Ordered By: Yudith Vaz on 06-09-2009 Glucose Glucometer (BldC) [Moles/Vol] 94 1 Normal [facility] Work Phone: HgA1C , Office (79039)Ordere d By: Yudith Vaz on 06-09-2009 HbA1c (Bld) [Mass fraction] 5.6 % Normal 4.6 - 7.1 [facility] Work Phone: LIPOPROTEIN, BLD, BY NMR (94 248)Ordered By: Corporate Legal Intern on 05-24-2009 Cholesterol [Mass/Vol] 210 mg/dL Abnormal [facility] Work Phone: Comment on above: PATIENT WAS FASTINGP ERFORMED BY: S7 [employer] Qfy6691 [facility] [id number] Information: [id number] Cholesterol in HDL [Mass/Vol] mg/dL Abnormal [facility] Work Phone: Comment on above: PATIENT WAS FASTINGP ERFORMED BY: S7 [employer] Sge0304 [facility] [id number] Information: [id number] Cholesterol in HDL [Mass/Vol] 45 mg/dL Normal [facility] Work Phone: Comment on above: PATIENT WAS FASTINGP ERFORMED BY: S7 [employer] Kcs0565 [facility] [id number] Information: [id number] Cholesterol in LDL [Mass/Vol] 134 mg/dL Abnormal [facility] Work Phone: Comment on above: .Optimal < 100Above optimal 100 - 129Borderline 130 - 159High 160 - 189Very high > 189. PATIENT WAS FASTINGP ERFORMED BY: LipoSciRobert V[place] 457330 [facility] [id number] Information: [id number] Lipoprotein.alpha [Moles/Vol] 30.9 umol/L Normal [facility] Work Phone: Comment on above: PATIENT WAS FASTINGP ERFORMED BY: LipoSci[address] [id number] Information: [id number] Lipoprotein.beta.subp article [Entitic length] 20.3 nm Abnormal [facility] Work Phone: Comment on above: PATIENT WAS FASTINGP ERFORMED BY: S7 [facility] [address] [place] [address] [id number] Information: [id number],[id number] Lipoprotein.beta.subp article [Moles/Vol] 1873 nmol/L Abnormal Comprehensiv e [facility] Work Phone: Comment on above: Low < 1000Moderate 1 000 - 1299Borderline-High 1300 - 1599High 1600 - 2000Very High > 2000. PATIENT WAS FASTINGP ERFORMED BY: LipoSci[address] [id number] Information: [id number] Lipoprotein.beta.subp article.small [Moles/Vol] 985 nmol/L Abnormal [facility] Work Phone: Comment on above: PATIENT WAS FASTINGP ERFORMED BY: [facility] [address] [place] [address] [id number] Information: [id number] Triglyceride [Mass/Vol] 153 mg/dL Abnormal [facility] Work Phone: Comment on above: PATIENT WAS FASTINGP ERFORMED BY: S7 [facility] Csi9686 [facility] [id number] Information: [id number] LIPOPROTEIN, BLD, BY NMR (26930) < 8.3 Abnormal [facility] Work Phone: Comment on above: Small LDL-P, LDL Par ticle Size, Large HDL-P, Large VLDL-PVLDL Size, HDL Size, HDL Particle, and LP-IR Scorehave been validated by [employer] but not cleared by US FDA;the clinical utility of these test results has not been fully established. PATIENT WAS FASTINGP ERFORMED BY: S7 [employer] Jpm7072 [facility] [id number] Information: [id number] LIPOPROTEIN, BLD, BY NMR (42843) 76 1 Abnormal [facility] Work Phone: Comment on above: The LP-IR Score comb rich the information from Large VLDL- P,Small LDL-P, Large HDL-P, VLDL Size, LDL Size and HDL Sizeto give improved assessment of insulin resistance anddiabetes risk. * INTERPRETATIVE INFORMATIONPARTICLE CONCENTRATION AND SIZE<--Lower CVD Risk Higher CVD Risk-->LDL AND HDL PARTICLES Percentile in Reference PopulationHDL-P (total) High 75th 50th 25th Low>34.9 34.9 30.5 26.7 <26.7.Small LDL-P Low 25th 50th 75th High<117 117 527 839 >839.LDL Size <-Large (Pattern A)-> <-Small (Pattern B)->23.0 20.6 20.5 19.0 IN SULIN RESISTANCE / DIABETES RISK MARKERS<--Insulin Sensitive Insulin Resistant-->Percentile in Reference PopulationLarge VLDL-P Low 25th 50th 75th High<0.9 0.9 2.7 6.9 >6.9.Small LDL-P Low 25th 50th 75th High<117 117 527 839 >839.Large HDL-P High 75th 50th 25th Low>7.3 7.3 4.8 3.1 <3.1.VLDL Size Small 25th 50th 75th Large<42.4 42.4 46.6 52.5 >52.5.LDL Size Large 75th 50th 25th Small>21.2 21.2 20.8 20.4 <20.4.HDL Size Large 75th 50th 25th Small>9.6 9.6 9.2 8.9 >8.9Insulin Resistance ScoreLP-IR SCORE Low 25th 50th 75th High<27 27 45 63 >63 PATIENT WAS FASTINGP ERFORMED BY: S7 [facility] Woh6200 [facility] [id number] Information: [id number] LIPOPROTEIN, BLD, BY NMR (59044) 51.1 nm Abnormal [facility] Work Phone: Comment on above: PATIENT WAS FASTINGP ERFORMED BY: S7 [facility] Avk5348 [facility] [id number] Information: [id number] LIPOPROTEIN, BLD, BY NMR (07092) 985 nmol/L Abnormal [facility] Work Phone: Comment on above: PATIENT WAS FASTINGP ERFORMED BY: S7 [facility] Xjg7261 [facility] [id number] Information: [id number] LIPOPROTEIN, BLD, BY NMR (52875) 20.3 nm Abnormal [facility] Work Phone: Comment on above: PATIENT WAS FASTINGP ERFORMED BY: S7 [facility] Cva6027 [facility] [id number] Information: [id number] LIPOPROTEIN, BLD, BY NMR (96457) 5.7 nmol/L Abnormal [facility] Work Phone: Comment on above: PATIENT WAS FASTINGP ERFORMED BY: Edward [employer] Cse7313 Cali [facility] [id number] Information: [id number] Blood Glucose , Office (6516 2)Ordered By: Yudith Vaz on 01-25-2009 Glucose Glucometer (BldC) [Moles/Vol] 106 1 Normal [facility] Work Phone: Comment on above: done km HgA1C , Office (26020)Ordere d By: Yudith Vaz on 01-25-2009 HbA1c (Bld) [Mass fraction] 5.5 % Normal 4.6 - 7.1 [facility] Work Phone: Comment on above: done km CBC WITH MANUAL DIFF (50780) Ordered By: Subha Camacho on 01-20-2009 Basophils (Bld) [#/Vol] 0.1 {x10E3/uL} Normal 0.0-0.2 [facility] Work Phone: Comment on above: PATIENT WAS FASTINGP ERFORMED BY: JAMA Sanchez70 [facility] [id number] Basophils/100 WBC (Bld) 1 % Normal 0-3 [facility] Work Phone: Comment on above: PATIENT WAS FASTINGP ERFORMED BY: JAMA LabMedallia Shejsd8007 [facility] [id number] Eosinophils (Bld) [#/Vol] 0.2 {x10E3/uL} Normal 0.0-0.4 [facility] Work Phone: Comment on above: PATIENT WAS FASTINGP ERFORMED BY: JAMA LabMedalliaThe Valley HospitalNvdjpk1758 [facility] [id number] Eosinophils/100 WBC (Bld) 2 % Normal 0-7 [facility] Work Phone: Comment on above: PATIENT WAS FASTINGP ERFORMED BY: JAMA [facility]6370 [facility] [id number] Erythrocyte distribution width (RBC) [Ratio] 12.5 % Normal 11.7-15.0 [facility] Internal [facility] Work Phone: Comment on above: PATIENT WAS FASTINGP ERFORMED BY: JAMA [facility] Gnwzvs1877 [facility] [id number] Hematocrit (Bld) [Volume fraction] 42.5 % Normal 36.0-50.0 [facility] Work Phone: Comment on above: PATIENT WAS FASTINGP ERFORMED BY: JAMA [facility]6370 [facility] [id number] Hemoglobin (Bld) [Mass/Vol] 14.9 g/dL Normal 12.5-17.0 [facility] Internal [facility] Work Phone: Comment on above: PATIENT WAS FASTINGP ERFORMED BY: JAMA [facility] Vjmuxr4207 [facility] [id number] Lymphocytes (Bld) [#/Vol] 2.3 {x10E3/uL} Normal 0.7-4.5 [facility] Internal [facility] Work Phone: Comment on above: PATIENT WAS FASTINGP ERFORMED BY: JAMA RadhaKaren [place] 1094270 [facility] [id number] Lymphocytes/100 WBC (Bld) 28 % Normal 14-46 [facility] Work Phone: Comment on above: PATIENT WAS FASTINGP ERFORMED BY: JAMA [place] [id number] [facility] [id number] MCH (RBC) [Entitic mass] 31.2 pg Normal 27.0-34.0 [facility] Internal Medicine Work Phone: Comment on above: PATIENT WAS FASTINGP ERFORMED BY: LabKaren [place] 1094270 [facility] [id number] MCHC (RBC) [Mass/Vol] 35.0 g/dL Normal 32.0-36.0 [facility] Internal Medicine Work Phone: Comment on above: PATIENT WAS FASTINGP ERFORMED BY: [place] 9381970 [address] [facility] [place] [id number] MCV (RBC) [Entitic vol] 89 fL Normal 80-98 [facility] Work Phone: Comment on above: PATIENT WAS FASTINGP ERFORMED BY: JAMA RadhaRoger JiménezKmgjxs8501 Jimenez RoadDublin [place] [id number] Monocytes (Bld) [#/Vol] 0.6 {x10E3/uL} Normal 0.1-1.0 [facility] Work Phone: Comment on above: PATIENT WAS FASTINGP ERFORMED BY: JAMA LabRoger JiménezAwovpo4280 Jimenez RoadDublin [place] [id number] Monocytes/100 WBC (Bld) 8 % Normal 4-13 [facility] Work Phone: Comment on above: PATIENT WAS FASTINGP ERFORMED BY: JAMA Jiménezlin6370 [address] [facility] [place] [id number] Neutrophils (Bld) [#/Vol] 4.9 {x10E3/uL} Normal 1.8-7.8 [facility] Work Phone: Comment on above: PATIENT WAS FASTINGP ERFORMED BY: JAMA Nogueira6370 [address] [facility] [place] [id number] Neutrophils/100 WBC (Bld) 61 % Normal 40-74 [facility] Work Phone: Comment on above: PATIENT WAS FASTINGP ERFORMED BY: JAMA Nogueira6370 [address] [facility] [place] [id number] Platelets (Bld) [#/Vol] 204 {x10E3/uL} Normal 140-415 [facility] Work Phone: Comment on above: PATIENT WAS FASTINGP ERFORMED BY: JAMA LabRoger JiménezShrrvi1195 [address] [facility] Center[facility] [place] [id number] RBC (Bld) [#/Vol] 4.77 {x10E6/uL} Normal 4.10-5.60 [facility] Internal Medicine Work Phone: Comment on above: PATIENT WAS FASTINGP ERFORMED BY: JAMA [facility] Npjxne1586 Jimenez RoadDublin [place] [id number] WBC (Bld) [#/Vol] 8.1 {x10E3/uL} Normal 4.0-10.5 Com prehensive Internal Medicine Work Phone: Comment on above: PATIENT WAS FASTINGP ERFORMED BY: JAMA [facility]6370 [facility] [id number] Glucose, PP/2 Hour (99995)Or dered By: Subha Camacho on 01-20-2009 Glucose 2 Hr post meal [Mass/Vol] 158 mg/dL Abnormal 65-139 [facility] Work Phone: Comment on above: PATIENT WAS FASTINGC linical Information: [id number] 75G DRAWN@ 11:15AM PERFORMED BY: JAMA [facility]6370 [facility] [id number] LIPOPROTEIN, BLD, BY NMR (46 214)Ordered By: Subha Camacho on 01-20-2009 Cholesterol [Mass/Vol] 212 mg/dL Abnormal [facility] Work Phone: Comment on above: PATIENT WAS FASTINGC linical Information: [id number] PERFORMED BY: [facility]6370 [facility] [id number] Cholesterol in HDL [Mass/Vol] 45 mg/dL Normal [facility] Work Phone: Comment on above: PATIENT WAS FASTINGC linical Information: [id number] PERFORMED BY: [facility]6370 [facility] [id number] Cholesterol in HDL [Mass/Vol] mg/dL Abnormal [facility] Work Phone: Comment on above: PATIENT WAS FASTINGC linical Information: [id number] PERFORMED BY: [facility]6370 [facility] [id number] Cholesterol in LDL [Mass/Vol] 123 mg/dL Abnormal [facility] Work Phone: Comment on above: . Optimal < 100 Abov e optimal 100 - 129 Borderline 130 - 159 High 160 - 189 Very high > 189 . PATIENT WAS FASTINGC linical Information: [id number] PERFORMED BY: StockLayouts6370 [facility] [id number] Triglyceride [Mass/Vol] 221 mg/dL Abnormal [facility] Work Phone: Comment on above: PATIENT WAS FASTINGC linical Information: [id number] PERFORMED BY: Graphdive70 Logan MimviFormerly [facility] [id number] LIPOPROTEIN, BLD, BY NMR (18591) [facility] Normal [facility] Work Phone: Comment on above: High Risk: LDL-P < 1 000; Secondary goal: Small LDL-P < 527Moderately High-Risk: LDL-P < 1300; Secondary goal: Small LDL-P < 527 PATIENT WAS FASTINGC linical Information: [id number] PERFORMED BY: StockLayouts6370 Logan MimviFormerly [facility] [id number] LIPOPROTEIN, BLD, BY NMR (63782) 2068 nmol/L Abnormal [facility] Work Phone: Comment on above: . Optimal < 1000 Abo ve optimal 1000 - 1299 Borderline 1300 - 1599 High 1600 - 2000 Very high > 2000 . PATIENT WAS FASTINGC linical Information: [id number] PERFORMED BY: StockLayouts6370 Logan MimviFormerly [facility] [id number] LIPOPROTEIN, BLD, BY NMR (75407) 20.2 nm Abnormal [facility] Work Phone: Comment on above: . Small (Pattern B) 18.0 - 20.5 Large (Pattern A) 20.6 - 23.0 . PATIENT WAS FASTINGC linical Information: [id number] PERFORMED BY: StockLayouts6370 Logan MimviFormerly [facility] [id number] LIPOPROTEIN, BLD, BY NMR (26902) 14.2 nmol/L Abnormal [facility] Work Phone: Comment on above: Small LDL-P, LDL Par ticle Size, Large HDL-P and Large VLDL- Phave been validated by [employer] but not cleared by US FDA;the clinical utility of these test results has not been fully established. PATIENT WAS FASTINGC linical Information: [id number] PERFORMED BY: JAMA [facility] Szhddh4035 [address] [facility] [id number] LIPOPROTEIN, BLD, BY NMR (41878) 1368 nmol/L Abnormal [facility] Work Phone: Comment on above: . Low < 117 Moderate 117 - 526 Borderline 527 - 839 High > 839 . PATIENT WAS FASTINGC linical Information: [id number] PERFORMED BY: JAMA [facility] Pynlte0132 [facility] [id number] METABOLIC PANEL, COMPREHENSI VE (48190)Ordered By: Subha Caamcho on 01-20-2009 Albumin [Mass/Vol] 4.7 g/dL Normal 3.5-5.5 [facility] Internal Medicine Work Phone: Comment on above: PATIENT WAS FASTINGP ERFORMED BY: [employer] Tbvspl6076 [facility] [id number] Albumin/Globulin [Mass ratio] 2.0 {ratio} Normal 1.1-2.5 [facility] Work Phone: Comment on above: PATIENT WAS FASTINGP ERFORMED BY: LabMedallia Vuylke8585 [facility] [id number] ALP [Catalytic activity/Vol] 72 [iU]/L Normal 25-150 [facility] Work Phone: Comment on above: PATIENT WAS FASTINGP ERFORMED BY: [facility] Chdwsn0578 [facility] [id number] ALT [Catalytic activity/Vol] 43 [iU]/L Normal 0-55 [facility] Work Phone: Comment on above: PATIENT WAS FASTINGP ERFORMED BY: [facility] Krudhy2294 [facility] [id number] AST [Catalytic activity/Vol] 25 [iU]/L Normal 0-40 [facility] Work Phone: Comment on above: PATIENT WAS FASTINGP ERFORMED BY: LabCo Ygfona6248 Jimenez RoadCarolinas Continuecare Hospital At Pinevillein [place] [id number] Bilirubin [Mass/Vol] 0.5 mg/dL Normal 0.1-1.2 [facility] Work Phone: Comment on above: PATIENT WAS FASTINGP ERFORMED BY: [facility] Tksmaz1310 [address] [facility] [id number] Calcium [Mass/Vol] 10.2 mg/dL Normal 8.5-10.6 [facility] Internal Medicine Work Phone: Comment on above: PATIENT WAS FASTINGP ERFORMED BY: [facility]Co Mnevmk0182 Jimenez RoadCarolinas Continuecare Hospital [facility] Pinevillein [place] [id number] Chloride [Moles/Vol] 102 mmol/L Normal 97-108 [facility] Work Phone: Comment on above: PATIENT WAS FASTINGP ERFORMED BY: [facility] Snggrm2646 Jimenez RoadFormerly [facility] [id number] CO2 [Moles/Vol] 22 mmol/L Normal 20-32 [facility] Internal [facility] Work Phone: Comment on above: PATIENT WAS FASTINGP ERFORMED BY: [facility] Vawqnx8462 [address] [facility] [id number] Creatinine [Mass/Vol] 0.98 mg/dL Normal 0.76-1.27 [facility] Internal Medicine Work Phone: Comment on above: PATIENT WAS FASTINGP ERFORMED BY: [facility] Igcdds3701 [address] [facility] [id number] GFR/1.73 sq M predicted among blacks MDRD (S/P/Bld) [Vol rate/Area] mL/min/{1.73_m2} Normal [facility] Work Phone: Comment on above: Note: Persistent red uction for 3 months or more in an eGFR<60 mL/min/1.73 m2 defines CKD. Patients with eGFR values>/=60 mL/min/1.73 m2 may also have CKD if evidence of persistentproteinuria is present. Additional information may be found [email or web address]. PATIENT WAS FASTINGP ERFORMED BY: [facility]6370 [facility] [id number] GFR/1.73 sq M.predicted MDRD (S/P/Bld) [Vol rate/Area] mL/min/{1.73_m2} Normal [facility] Internal Medicine Work Phone: Comment on above: PATIENT WAS FASTINGP ERFORMED BY: [place] [id number] [facility] [id number] Globulin (S) [Mass/Vol] 2.4 g/dL Normal 1.5-4.5 [facility] Internal Medicine Work Phone: Comment on above: PATIENT WAS FASTINGP ERFORMED BY: [place] [id number] [facility] [id number] Glucose [Mass/Vol] 102 mg/dL Abnormal 65-99 [facility] Internal Medicine Work Phone: Comment on above: PATIENT WAS FASTINGP ERFORMED BY: [place] [id number] [facility] [id number] Potassium [Moles/Vol] 4.3 mmol/L Normal 3.5-5.2 [facility] Internal Medicine Work Phone: Comment on above: PATIENT WAS FASTINGP ERFORMED BY: [facility]6370 [facility] [id number] Protein [Mass/Vol] 7.1 g/dL Normal 6.0-8.5 [facility] Internal Medicine Work Phone: Comment on above: PATIENT WAS FASTINGP ERFORMED BY: [facility]6370 [facility] [id number] Sodium [Moles/Vol] 139 mmol/L Normal 135-145 [facility] Internal Medicine Work Phone: Comment on above: PATIENT WAS FASTINGP ERFORMED BY: [facility]6370 [facility] [id number] Urea nitrogen [Mass/Vol] 16 mg/dL Normal 5-26 [facility] Internal Medicine Work Phone: Comment on above: PATIENT WAS FASTINGP ERFORMED BY: CB [facility] [id number] [address] [facility] [place] [id number] Urea nitrogen/Creatinine [Mass ratio] 16 mg/mg Normal 8-27 [facility] Work Phone: Comment on above: PATIENT WAS FASTINGP ERFORMED BY: CB [facility] [id number] [address] [facility] [id number] MICROALBUMINOrdered By: Ashley Camacho on 01-20-2009 Albumin DL <= 20 mg/L (U) [Mass/Vol] 5.3 ug/mL Normal 0.0-17.0 [facility] Work Phone: Comment on above: PATIENT WAS FASTINGP ERFORMED BY: CB [facility] [id number] [address]enez RoadCarolinas Continuecare Hospital [facility]villein [place] [id number] Albumin/Creatinine (U) [Mass ratio] 4.6 {mg/g_creat} Normal 0.0-30.0 [facility] Work Phone: Comment on above: PATIENT WAS FASTINGP ERFORMED BY: CB [facility] [id number] [address] [facility] [place] [id number] Creatinine (U) [Mass/Vol] 115.2 mg/dL Normal 22.0-328.0 [facility] Work Phone: Comment on above: PATIENT WAS FASTINGP ERFORMED BY: CB [facility] [id number] [address] [facility] [id number] PSA (PROSTATE SPECIFIC ANTIG EN) (V76.44)Ordered By: Subha Camacho on 01-20-2009 Prostate specific Ag [Mass/Vol] 1.6 ng/mL Normal 0.0-4.0 [facility] Work Phone: Comment on above: Steve ECLIA methodol ogy. .According to the [place] [employer], Serum PSA shoulddecrease and remain at undetectable levels after radicalprostatectomy. The AUA defines biochemical recurrence as an initialPSA value 0.2 ng/mL or greater followed by a subsequent confirmatoryPSA value 0.2 ng/mL or greater.Values obtained with different assay methods or kits cannot be usedinterchangeably. Results cannot be interpreted as absolute evidenceof the presence or absence of malignant disease. only do if it has be en greater than a yr; PATIENT WAS FASTINGPERFORMED BY: CB [facility] [id number] Jimenez RoadDublin [place] [id number] TSH ([id number])Ordered By: Rosalind Camacho on 01-20-2009 TSH Qn 1.500 {uIU/mL} Normal 0.450-4.50 0 [facility] Work Phone: Comment on above: PATIENT WAS FASTINGP ERFORMED BY: CB [facility] [id number] Jimenez RoadDublin [place] [id number] URINALYSIS, W/ MICRO ([id number]) Ordered By: Subha Camacho on 01-20-2009 Appearance (U) Clear Normal Comprehens johann Internal Medicine Work Phone: Comment on above: PATIENT WAS FASTINGP ERFORMED BY: CB [facility] [id number] Jimenez RoadDublin [place] [id number] Bilirubin Ql (U) Negative Normal Comprehe nsive Internal Medicine Work Phone: Comment on above: PATIENT WAS FASTINGP ERFORMED BY: CB [facility] [id number] Jimenez RoadDublin [place] [id number] Color (U) Yellow Normal [facility] Work Phone: Comment on above: PATIENT WAS FASTINGP ERFORMED BY: CB [facility] [id number] [address] RoadDublin [place] [id number] Glucose Ql (U) Negative Normal Comprehens johann Internal Medicine Work Phone: Comment on above: PATIENT WAS FASTINGP ERFORMED BY: CB [facility] [id number] [address] RoadDublin [place] [id number] Hemoglobin Ql (U) Negative Normal Compreh ensive Internal Medicine Work Phone: Comment on above: PATIENT WAS FASTINGP ERFORMED BY: CB [facility] [id number] Jimenez RoadDublin [place] [id number] Ketones Ql (U) Negative Normal Comprehens johann Internal Medicine Work Phone: Comment on above: PATIENT WAS FASTINGP ERFORMED BY: CB [facility] [id number] [facility] [id number] Leukocyte esterase Test strip Ql (U) Negative Normal [facility] Work Phone: Comment on above: PATIENT WAS FASTINGP ERFORMED BY: [facility]6370 [facility] [id number] Microscopic observation LM Nom (Urine sed) MICRON Normal [facility] Work Phone: Comment on above: Microscopic follows if indicated. PATIENT WAS FASTINGP ERFORMED BY: [place] [id number] [facility] [id number] Microscopic observation LM Nom (Urine sed) See below: Normal [facility] Work Phone: Comment on above: PATIENT WAS FASTINGP ERFORMED BY: [place] [id number] [facility] [id number] Nitrite Ql (U) Negative Normal Comprehens johann Internal Medicine Work Phone: Comment on above: PATIENT WAS FASTINGP ERFORMED BY: [place] [id number] [facility] [id number] pH (U) 5.5 [pH] Normal 5.0-7.5 [facility] Work Phone: Comment on above: PATIENT WAS FASTINGP ERFORMED BY: [place] [id number] [facility] [id number] Protein Ql (U) Negative Normal Comprehens johann Internal Medicine Work Phone: Comment on above: PATIENT WAS FASTINGP ERFORMED BY: [place] [id number] [facility] [id number] Specific gravity (U) [Rel density] 1.017 1 Normal 1.005-1.03 0 [facility] Work Phone: Comment on above: PATIENT WAS FASTINGP ERFORMED BY: [place] [id number] [facility] [id number] Urobilinogen Test strip (U) [Mass/Vol] 0.2 mg/dL Normal 0.0-1.9 Comprehensi ve Internal Medicine Work Phone: Comment on above: PATIENT WAS FASTINGP ERFORMED BY: [facility]6370 [facility] [id number] Vital Signs Date Time Vital Sign Value Performing Clinician Facility 11-08-2023 10:07-0400 Body height 172.7 cm Patrice Edwards Jr., MD Work Phone: [facility] 10-25-2023 13:27-0400 Body height 172.7 cm Patrice Edwards Jr., MD Work Phone: [facility] 10-25-2023 13:27-0400 Diastolic blood pressure 82 mm[Hg] Patrice Edwards Jr., MD Work Phone: [facility] 10-25-2023 13:27-0400 Heart rate 77 /min Patrice Edwards Jr., MD Work Phone: [facility] 10-25-2023 13:27-0400 SaO2% (BldA) [Mass fraction] 98 % Patrice Edwards Jr., MD Work Phone: [facility] 10-25-2023 13:27-0400 Systolic blood pressure 140 mm[Hg] Patrice Edwards Jr., MD Work Phone: [facility] 10-02-2023 10:01-0400 Body mass index (BMI) [Ratio] 31.62 kg/m2 Justine Leary APRN.[employer] Work Phone: [facility] 10-02-2023 10:01-0400 Body weight 93 kg Justine Leary APRN.[employer] Work Phone: [facility] 10-02-2023 10:01-0400 Diastolic blood pressure 90 mm[Hg] Justine Leary APRN.[employer] HELPER Work Phone: [facility] 10-02-2023 10:01-0400 Heart rate 77 /min Justine Leary APRN.[employer] HELPER Work Phone: [facility] 10-02-2023 10:01-0400 Respiratory rate 16 /min Justine Tannhof STEWARDESSES TEACHER.[employer] HELPER Work Phone: [facility] 10-02-2023 10:01-0400 SaO2% (BldA) [Mass fraction] 97 % Justine Tannhof STEWARDESSES TEACHER.[employer] HELPER Work Phone: [facility] 10-02-2023 10:01-0400 Systolic blood pressure 136 mm[Hg] Justine Tannhof STEWARDESSES TEACHER.[employer] HELPER Work Phone: [facility] 09-12-2023 13:07-0400 Body mass index (BMI) [Ratio] 31.61 kg/m2 Justine Tannhof STEWARDESSES TEACHER.[employer] HELPER Work Phone: [facility] 09-12-2023 13:07-0400 Body weight 92.99 kg Justinedonis Samuelhof STEWARDESSES TEACHER.[employer] HELPER Work Phone: [facility] 09-12-2023 13:07-0400 Diastolic blood pressure 78 mm[Hg] Justine Tannhof STEWARDESSES TEACHER.[employer] HELPER Work Phone: [facility] 09-12-2023 13:07-0400 Heart rate 89 /min Justine Tannhof STEWARDESSES TEACHER.[employer] HELPER Work Phone: [facility] 09-12-2023 13:07-0400 Respiratory rate 16 /min Justine Tannhof STEWARDESSES TEACHER.[employer] HELPER Work Phone: [facility] 09-12-2023 13:07-0400 SaO2% (BldA) [Mass fraction] 97 % Justinedonis Samuelhof STEWARDESSES TEACHER.[employer] HELPER Work Phone: [facility] 09-12-2023 13:07-0400 Systolic blood pressure 126 mm[Hg] Justine Tannhof STEWARDESSES TEACHER.[employer] HELPER Work Phone: [facility] 11-20-2022 10:10-0400 Body height 171.5 cm Justine Samuelhof STEWARDESSES TEACHER.[employer] HELPER Work Phone: [facility] 11-20-2022 10:10-0400 Body weight 93.44 kg Justinedonis Samuelhof STEWARDESSES TEACHER.[employer] HELPER Work Phone: [facility] 11-20-2022 10:10-0400 Diastolic blood pressure 84 mm[Hg] Justine Lizziehof STEWARDESSES TEACHER.[employer] HELPER Work Phone: [facility] 11-20-2022 10:10-0400 Heart rate 72 /min Justine Samueljennifer STEWARDESSES TEACHER.[employer] HELPER Work Phone: [facility] 11-20-2022 10:10-0400 Respiratory rate 16 /min Justine Lizziehof STEWARDESSES TEACHER.[employer] HELPER Work Phone: [facility] 11-20-2022 10:10-0400 SaO2% (BldA) [Mass fraction] 97 % Justine Ruffkennedi STEWARDESSES TEACHER.[employer] HELPER Work Phone: [facility] 11-20-2022 10:10-0400 Systolic blood pressure 130 mm[Hg] Justine Sapphire STEWARDESSES TEACHER.[employer] HELPER Work Phone: [facility] 09-24-2013 15:32-0400 BMI (Body Mass Index) 32.09 kg/m2 Subha Mireille [facility] Internal Medicine Work Phone: 09-24-2013 15:32-0400 Body weight 95.74 kg Subha [facility] Internal Medicine Work Phone: 09-24-2013 15:32-0400 BP Diastolic 78 mm[Hg] Subha [facility] Internal Medicine Work Phone: Comment on above: Patient Position: Sitting; Cuff Location : Left Arm; Cuff Size: Standard 09-24-2013 15:32-0400 BP Systolic 122 mm[Hg] Subha [facility] Internal Medicine Work Phone: Comment on above: Patient Position: Sitting; Cuff Location : Left Arm; Cuff Size: Standard 09-24-2013 15:32-0400 BSA (Body Surface Area) 2.09 m2 [facility] Work Phone: 09-24-2013 15:32-0400 Height 172.72 cm [facility] Work Phone: 09-24-2013 15:32-0400 Pulse (Heart Rate) 70 /min [facility] Work Phone: Comment on above: Pattern: Regular 09-24-2013 15:32-0400 Respiratory Rate 18 /min Subha Camacho [facility] Internal Medicine Work Phone: 07-18-2013 15:01-0400 BMI (Body Mass Index) 32.09 kg/m2 [facility] Work Phone: 07-18-2013 15:0400 Body weight 95.74 kg Subha Camacho [facility] Internal Medicine Work Phone: 07-18-2013 15:01-0400 BP Diastolic 82 mm[Hg] Subha Camacho [facility] Internal Medicine Work Phone: Comment on above: Patient Position: Sitting; Cuff Location : Left Arm; Cuff Size: Standard 07-18-2013 15:010400 BP Systolic 118 mm[Hg] Subha Camacho [facility] Internal Medicine Work Phone: Comment on above: Patient Position: Sitting; Cuff Location : Left Arm; Cuff Size: Standard 07-18-2013 15:010400 BSA (Body Surface Area) 2.09 m2 Subha Camacho [facility] Internal Medicine Work Phone: 07-18-2013 15:01040 Height 172.72 cm Subha Camacho [facility] Internal Medicine Work Phone: 07-18-2013 15:01-0400 Pulse (Heart Rate) 89 /min Subha Camacho [facility] Internal Medicine Work Phone: Comment on above: Pattern: Regular 07-18-2013 15:01-0400 Pulse Oximetry 98 % Subha Camacho [facility] Internal Medicine Work Phone: Comment on above: Room air 07-18-2013 15:-0400 Respiratory Rate 18 /min Subha Camacho [facility] Internal Medicine Work Phone: Comment on above: Pattern: Unlabored 07-02-2013 15:16-0400 BMI (Body Mass Index) 32.09 kg/m2 [facility] Work Phone: 07-02-2013 15:16-0400 Body weight 95.74 kg Subha Camacho [facility] Internal Medicine Work Phone: 07-02-2013 15:16-0400 BP Diastolic 76 mm[Hg] Subha Camacho [facility] Internal Medicine Work Phone: Comment on above: Patient Position: Sitting; Cuff Location : Left Arm; Cuff Size: Large 07-02-2013 15:16-0400 BP Systolic 128 mm[Hg] Subha Camacho [facility] Internal Medicine Work Phone: Comment on above: Patient Position: Sitting; Cuff Location : Left Arm; Cuff Size: Large 07-02-2013 15:16-0400 BSA (Body Surface Area) 2.09 m2 Subha Camacho [facility] Internal Medicine Work Phone: 07-02-2013 15:16-0400 Height 172.72 cm Subha Camacho [facility] Internal Medicine Work Phone: 07-02-2013 15:16-0400 Pulse (Heart Rate) 72 /min Subha Camacho [facility] Internal Medicine Work Phone: Comment on above: Pattern: Regular 07-02-2013 15:16-0400 Pulse Oximetry 98 % Subha Camacho [facility] Internal Medicine Work Phone: Comment on above: Room air 07-02-2013 15:16-0400 Respiratory Rate 16 /min Subha Camacho [facility] Internal Medicine Work Phone: Comment on above: Pattern: Unlabored 06-11-2013 15:43-0400 BMI (Body Mass Index) 32.09 kg/m2 Subha Camacho [facility] Internal Medicine Work Phone: 06-11-2013 15:43-0400 Body Temperature 98.6 [degF] Subha Camacho [facility] Internal Medicine Work Phone: Comment on above: Method: Oral 06-11-2013 15:43-0400 Body weight 95.74 kg Subha Camacho [facility] Internal Medicine Work Phone: 06-11-2013 15:43-0400 BP Diastolic 84 mm[Hg] Subha Camacho [facility] Internal Medicine Work Phone: Comment on above: Patient Position: Sitting; Cuff Location : Left Arm; Cuff Size: Standard 06-11-2013 15:43-0400 BP Systolic 132 mm[Hg] Subha Camacho [facility] Internal Medicine Work Phone: Comment on above: Patient Position: Sitting; Cuff Location : Left Arm; Cuff Size: Standard 06-11-2013 15:43-0400 BSA (Body Surface Area) 2.09 m2 Subha Camacho [facility] Internal Medicine Work Phone: 06-11-2013 15:43-0400 Height 172.72 cm Subha Camacho [facility] Internal Medicine Work Phone: 06-11-2013 15:43-0400 Pulse (Heart Rate) 76 /min Subha Camacho [facility] Internal Medicine Work Phone: Comment on above: Pattern: Regular 06-11-2013 15:43-0400 Pulse Oximetry 98 % Subha Camacho [facility] Internal Medicine Work Phone: Comment on above: Room air 06-11-2013 15:43-0400 Respiratory Rate 16 /min Subha Camacho [facility] Internal Medicine Work Phone: Comment on above: Pattern: Unlabored 09-12-2012 10:59-0400 BMI (Body Mass Index) 31.94 kg/m2 Subha Camacho [facility] Internal Medicine Work Phone: 09-12-2012 10:59-0400 Body Temperature 98.4 [degF] Subha Camacho [facility] Internal Medicine Work Phone: Comment on above: Method: Oral 09-12-2012 10:59-0400 Body weight 95.28 kg Subha Camacho [facility] Internal Medicine Work Phone: 09-12-2012 10:59-0400 BP Diastolic 82 mm[Hg] Subha Camacho [facility] Internal Medicine Work Phone: Comment on above: Patient Position: Sitting; Cuff Location : Left Arm; Cuff Size: Large 09-12-2012 10:59-0400 BP Systolic 128 mm[Hg] [facility] Work Phone: Comment on above: Patient Position: Sitting; Cuff Location : Left Arm; Cuff Size: Large 09-12-2012 10:59-0400 BSA (Body Surface Area) 2.09 m2 Subha Camacho [facility] Internal Medicine Work Phone: 09-12-2012 10:59-0400 Height 172.72 cm [facility] Work Phone: 09-12-2012 10:59-0400 Pulse (Heart Rate) 60 /min Subha Camacho [facility] Internal Medicine Work Phone: Comment on above: Pattern: Regular 09-12-2012 10:59-0400 Respiratory Rate 16 /min Subha Camacho [facility] Internal Medicine Work Phone: Comment on above: Pattern: Unlabored 07-08-2012 08:57-0400 BMI (Body Mass Index) 31.68 kg/m2 Subha Camacho [facility] Internal Medicine Work Phone: 07-08-2012 08:57-0400 Body Temperature 97.8 [degF] [facility] Work Phone: Comment on above: Method: Oral 07-08-2012 08:57-0400 Body weight 94.52 kg Subha Camacho [facility] Internal Medicine Work Phone: 07-08-2012 08:57-0400 BP Diastolic 86 mm[Hg] [facility] Work Phone: Comment on above: Patient Position: Sitting; Cuff Location : Left Arm; Cuff Size: Large 07-08-2012 08:57-0400 BP Systolic 124 mm[Hg] [facility] Work Phone: Comment on above: Patient Position: Sitting; Cuff Location : Left Arm; Cuff Size: Large 07-08-2012 08:57-0400 BSA (Body Surface Area) 2.08 m2 [facility] Work Phone: 07-08-2012 08:57-0400 Height 172.72 cm [facility] Work Phone: 07-08-2012 08:57-0400 Pulse (Heart Rate) 72 /min Subha Camacho [facility] Internal Medicine Work Phone: Comment on above: Pattern: Regular 07-08-2012 08:57-0400 Respiratory Rate 20 /min Subha Camacho [facility] Internal Medicine Work Phone: Comment on above: Pattern: Unlabored 03-25-2012 15:55-0500 BMI (Body Mass Index) 32.6 kg/m2 Subha Camacho [facility] Internal Medicine Work Phone: 03-25-2012 15:55-0500 Body weight 97.27 kg Subha Camacho [facility] Internal Medicine Work Phone: 03-25-2012 15:55-0500 BP Diastolic 82 mm[Hg] Subha Camacho [facility] Internal Medicine Work Phone: Comment on above: Patient Position: Sitting; Cuff Location : Left Arm; Cuff Size: Large 03-25-2012 15:55-0500 BP Systolic 128 mm[Hg] Subha Camacho [facility] Internal Medicine Work Phone: Comment on above: Patient Position: Sitting; Cuff Location : Left Arm; Cuff Size: Large 03-25-2012 15:55-0500 BSA (Body Surface Area) 2.11 m2 Subha Camacho [facility] Internal Medicine Work Phone: 03-25-2012 15:55-0500 Height 172.72 cm Subha Camacho [facility] Internal Medicine Work Phone: 03-25-2012 15:55-0500 Pulse (Heart Rate) 64 /min Subha Camacho [facility] Internal Medicine Work Phone: Comment on above: Pattern: Regular 03-25-2012 15:55-0500 Respiratory Rate 16 /min Subha Camacho [facility] Internal Medicine Work Phone: Comment on above: Pattern: Unlabored 01-08-2012 15:48-0500 BMI (Body Mass Index) 31.65 kg/m2 Subha Camacho [facility] Internal Medicine Work Phone: 01-08-2012 15:48-0500 Body Temperature 97.8 [degF] Subha Camacho [facility] Internal Medicine Work Phone: Comment on above: Method: Oral 01-08-2012 15:48-0500 Body weight 94.43 kg Subha Camacho [facility] Internal Medicine Work Phone: 01-08-2012 15:48-0500 BP Diastolic 80 mm[Hg] Subha Camacho [facility] Internal Medicine Work Phone: Comment on above: Patient Position: Sitting; Cuff Location : Left Arm; Cuff Size: Standard 01-08-2012 15:48-0500 BP Systolic 118 mm[Hg] Subha Camacho [facility] Internal Medicine Work Phone: Comment on above: Patient Position: Sitting; Cuff Location : Left Arm; Cuff Size: Standard 01-08-2012 15:48-0500 BSA (Body Surface Area) 2.08 m2 Subha Camacho [facility] Internal Medicine Work Phone: 01-08-2012 15:48-0500 Height 172.72 cm Subha Camacho [facility] Internal Medicine Work Phone: 01-08-2012 15:48-0500 Pulse (Heart Rate) 64 /min Subha Camacho [facility] Internal Medicine Work Phone: Comment on above: Pattern: Regular 01-08-2012 15:48-0500 Respiratory Rate 16 /min Subha Camacho [facility] Internal Medicine Work Phone: Comment on above: Pattern: Unlabored 11-08-2011 16:10-0400 BMI (Body Mass Index) 31.65 kg/m2 Subha Camacho [facility] Internal Medicine Work Phone: 11-08-2011 16:10-0400 Body Temperature 97.9 [degF] Subha Camacho [facility] Internal Medicine Work Phone: Comment on above: Method: Oral 11-08-2011 16:10-0400 Body weight 94.43 kg Subha Camacho [facility] Internal Medicine Work Phone: 11-08-2011 16:10-0400 BP Diastolic 84 mm[Hg] Subha Camacho [facility] Internal Medicine Work Phone: Comment on above: Patient Position: Sitting; Cuff Location : Left Arm; Cuff Size: Large 11-08-2011 16:10-0400 BP Systolic 122 mm[Hg] Subha Camacho [facility] Internal Medicine Work Phone: Comment on above: Patient Position: Sitting; Cuff Location : Left Arm; Cuff Size: Large 11-08-2011 16:10-0400 BSA (Body Surface Area) 2.08 m2 Subha Camacho [facility] Internal Medicine Work Phone: 11-08-2011 16:10-0400 Height 172.72 cm Subha Camacho [facility] Internal Medicine Work Phone: 11-08-2011 16:10-0400 Pulse (Heart Rate) 60 /min Subha Camacho [facility] Internal Medicine Work Phone: Comment on above: Pattern: Regular 11-08-2011 16:10-0400 Respiratory Rate 20 /min Subha Camacho [facility] Internal Medicine Work Phone: Comment on above: Pattern: Unlabored 09-06-2011 15:50-0400 BMI (Body Mass Index) 31.65 kg/m2 Sub[facility] [facility] Work Phone: 09-06-2011 15:50-0400 Body weight 94.43 kg Subha Camacho [facility] Internal Medicine Work Phone: 09-06-2011 15:50-0400 BP Diastolic 78 mm[Hg] Subha Camacho [facility] Internal Medicine Work Phone: Comment on above: Patient Position: Sitting; Cuff Location : Left Arm; Cuff Size: Standard 09-06-2011 15:50-0400 BP Systolic 124 mm[Hg] Subha Camacho [facility] Internal Medicine Work Phone: Comment on above: Patient Position: Sitting; Cuff Location : Left Arm; Cuff Size: Standard 09-06-2011 15:50-0400 BSA (Body Surface Area) 2.08 m2 Subha Camacho [facility] Internal Medicine Work Phone: 09-06-2011 15:50-0400 Height 172.72 cm Subha Camacho [facility] Internal Medicine Work Phone: 09-06-2011 15:50-0400 Pulse (Heart Rate) 68 /min Subha Camacho [facility] Internal Medicine Work Phone: Comment on above: Pattern: Regular 09-06-2011 15:50-0400 Respiratory Rate 18 /min Subha Camacho [facility] Internal Medicine Work Phone: Comment on above: Pattern: Unlabored 05-04-2011 07:32-0400 BMI (Body Mass Index) 31.86 kg/m2 Subha Camacho [facility] Internal Medicine Work Phone: 05-04-2011 07:32-0400 Body Temperature 97.3 [degF] Subha Camacho [facility] Internal Medicine Work Phone: 05-04-2011 07:32-0400 Body weight 95.06 kg Subha Camacho [facility] Internal Medicine Work Phone: 05-04-2011 07:32-0400 BP Diastolic 70 mm[Hg] [facility] Work Phone: Comment on above: Patient Position: Sitting; Cuff Location : Left Arm; Cuff Size: Large 05-04-2011 07:32-0400 BP Systolic 122 mm[Hg] Subha Camacho [facility] Internal Medicine Work Phone: Comment on above: Patient Position: Sitting; Cuff Location : Left Arm; Cuff Size: Large 05-04-2011 07:32-0400 BSA (Body Surface Area) 2.09 m2 Subha Camacho [facility] Internal Medicine Work Phone: 05-04-2011 07:32-0400 Height 172.72 cm Subha Camacho [facility] Internal Medicine Work Phone: 05-04-2011 07:32-0400 Pulse (Heart Rate) 60 /min Subha Camacho [facility] Internal Medicine Work Phone: Comment on above: Pattern: Regular 05-04-2011 07:32-0400 Respiratory Rate 16 /min Suhba Camacho [facility] Internal Medicine Work Phone: Comment on above: Pattern: Unlabored 04-27-2011 07:44-0500 BMI (Body Mass Index) 31.93 kg/m2 Subha Norris [facility] Internal Medicine Work Phone: 04-27-2011 07:44-0500 Body Temperature 97.4 [degF] Sbuha Camacho [facility] Internal Medicine Work Phone: Comment on above: Method: Oral 04-27-2011 07:44-0500 Body weight 95.26 kg Subha Camacho [facility] Internal Medicine Work Phone: 04-27-2011 07:44-0500 BP Diastolic 72 mm[Hg] Subha Camacho [facility] Internal Medicine Work Phone: Comment on above: Patient Position: Sitting; Cuff Location : Left Arm; Cuff Size: Large 04-27-2011 07:44-0500 BP Systolic 124 mm[Hg] Subha Camacho [facility] Internal Medicine Work Phone: Comment on above: Patient Position: Sitting; Cuff Location : Left Arm; Cuff Size: Large 04-27-2011 07:44-0500 BSA (Body Surface Area) 2.09 m2 Subha Camacho [facility] Internal Medicine Work Phone: 04-27-2011 07:44-0500 Height 172.72 cm Subha Camacho [facility] Internal Medicine Work Phone: 04-27-2011 07:44-0500 Pulse (Heart Rate) 96 /min Subha Camacho [facility] Internal Medicine Work Phone: Comment on above: Pattern: Regular 04-27-2011 07:44-0500 Respiratory Rate 16 /min Subha Camacho [facility] Internal Medicine Work Phone: Comment on above: Pattern: Unlabored 04-05-2011 11:58-0500 BMI (Body Mass Index) 31.47 kg/m2 Subha Norris [facility] Internal Medicine Work Phone: 04-05-2011 11:58-0500 Body Temperature 97.5 [degF] Subha Camacho [facility] Internal Medicine Work Phone: 04-05-2011 11:58-0500 Body weight 93.9 kg Subha Camacho [facility] Internal Medicine Work Phone: 04-05-2011 11:58-0500 BP Diastolic 78 mm[Hg] Subha Camacho [facility] Internal Medicine Work Phone: Comment on above: Patient Position: Sitting; Cuff Location : Left Arm; Cuff Size: Large 04-05-2011 11:58-0500 BP Systolic 110 mm[Hg] Subha Camacho [facility] Internal Medicine Work Phone: Comment on above: Patient Position: Sitting; Cuff Location : Left Arm; Cuff Size: Large 04-05-2011 11:58-0500 BSA (Body Surface Area) 2.07 m2 Subha Camacho [facility] Internal Medicine Work Phone: 04-05-2011 11:58-0500 Height 172.72 cm Subha Camacho [facility] Internal Medicine Work Phone: 04-05-2011 11:58-0500 Pulse (Heart Rate) 76 /min Subha Camacho [facility] Internal Medicine Work Phone: Comment on above: Pattern: Regular 04-05-2011 11:58-0500 Respiratory Rate 16 /min Subha Camacho [facility] Internal Medicine Work Phone: Comment on above: Pattern: Unlabored 10-19-2010 13:30-0400 BMI (Body Mass Index) 30.93 kg/m2 Subha Camacho [facility] Internal Medicine Work Phone: 10-19-2010 13:30-0400 Body Temperature 98.3 [degF] Subha Camacho [facility] Internal Medicine Work Phone: Comment on above: Method: Oral 10-19-2010 13:30-0400 Body weight 92.28 kg Subha Camacho [facility] Internal Medicine Work Phone: 10-19-2010 13:30-0400 BP Diastolic 80 mm[Hg] Subha Camacho [facility] Internal Medicine Work Phone: Comment on above: Patient Position: Sitting; Cuff Location : Left Arm; Cuff Size: Small 10-19-2010 13:30-0400 BP Systolic 122 mm[Hg] Subha Camacho [facility] Internal Medicine Work Phone: Comment on above: Patient Position: Sitting; Cuff Location : Left Arm; Cuff Size: Small 10-19-2010 13:30-0400 BSA (Body Surface Area) 2.06 m2 Subha Camacho [facility] Internal Medicine Work Phone: 10-19-2010 13:30-0400 Height 172.72 cm Subha Camacho [facility] Internal Medicine Work Phone: 10-19-2010 13:30-0400 Pulse (Heart Rate) 68 /min Subha Camacho [facility] Internal Medicine Work Phone: Comment on above: Pattern: Regular 10-19-2010 13:30-0400 Respiratory Rate 16 /min Subha Camacho [facility] Internal Medicine Work Phone: Comment on above: Pattern: Unlabored 10-03-2010 15:24-0400 BMI (Body Mass Index) 29.81 kg/m2 Subha Camacho [facility] Internal Medicine Work Phone: 10-03-2010 15:24-0400 Body Temperature 97.7 [degF] Subha Camacho [facility] Internal Medicine Work Phone: Comment on above: Method: Oral 10-03-2010 15:24-0400 Body weight 88.93 kg Subha Camacho [facility] Internal Medicine Work Phone: 10-03-2010 15:24-0400 BP Diastolic 78 mm[Hg] Subha Camacho [facility] Internal Medicine Work Phone: Comment on above: Patient Position: Sitting; Cuff Location : Left Arm; Cuff Size: Large 10-03-2010 15:24-0400 BP Systolic 122 mm[Hg] Subha Camacho [facility] Internal Medicine Work Phone: Comment on above: Patient Position: Sitting; Cuff Location : Left Arm; Cuff Size: Large 10-03-2010 15:24-0400 BSA (Body Surface Area) 2.03 m2 Subha Camacho [facility] Internal Medicine Work Phone: 10-03-2010 15:24-0400 Height 172.72 cm Subha Camacho [facility] Internal Medicine Work Phone: 10-03-2010 15:24-0400 Pulse (Heart Rate) 68 /min Subha Camacho [facility] Internal Medicine Work Phone: Comment on above: Pattern: Regular 10-03-2010 15:24-0400 Respiratory Rate 20 /min Subha Camacho [facility] Internal Medicine Work Phone: Comment on above: Pattern: Unlabored 09-16-2010 08:01-0400 BMI (Body Mass Index) 30.61 kg/m2 Subha [facility] Internal [facility] Work Phone: 09-16-2010 08:01-0400 Body weight 91.32 kg Subha Camacho [facility] Internal Medicine Work Phone: 09-16-2010 08:01-0400 BP Diastolic 90 mm[Hg] Subha Camacho [facility] Internal Medicine Work Phone: Comment on above: Patient Position: Sitting; Cuff Location : Left Arm; Cuff Size: Large 09-16-2010 08:01-0400 BP Systolic 124 mm[Hg] Subha Camacho [facility] Internal Medicine Work Phone: Comment on above: Patient Position: Sitting; Cuff Location : Left Arm; Cuff Size: Large 09-16-2010 08:01-0400 BSA (Body Surface Area) 2.05 m2 Subha Camacho [facility] Internal Medicine Work Phone: 09-16-2010 08:01-0400 Height 172.72 cm Subha Camacho [facility] Internal Medicine Work Phone: 09-16-2010 08:01-0400 Pulse (Heart Rate) 80 /min Subha Camacho [facility] Internal Medicine Work Phone: Comment on above: Pattern: Regular 09-16-2010 08:01-0400 Respiratory Rate 20 /min Subha Camacho [facility] Internal Medicine Work Phone: Comment on above: Pattern: Unlabored 09-08-2010 14:39-0400 BMI (Body Mass Index) 31.7 kg/m2 Subha [facility] Internal Medicine Work Phone: 09-08-2010 14:39-0400 Body Temperature 98.4 [degF] Subha Camacho [facility] Internal Medicine Work Phone: Comment on above: Method: Oral 09-08-2010 14:39-0400 Body weight 94.58 kg Subha Camacho [facility] Internal Medicine Work Phone: 09-08-2010 14:39-0400 BP Diastolic 82 mm[Hg] Subha Camacho [facility] Internal Medicine Work Phone: Comment on above: Patient Position: Sitting; Cuff Location : Left Arm; Cuff Size: Standard 09-08-2010 14:39-0400 BP Systolic 122 mm[Hg] Subha Camacho [facility] Internal Medicine Work Phone: Comment on above: Patient Position: Sitting; Cuff Location : Left Arm; Cuff Size: Standard 09-08-2010 14:39-0400 BSA (Body Surface Area) 2.08 m2 Subha Camacho [facility] Internal Medicine Work Phone: 09-08-2010 14:39-0400 Height 172.72 cm Subha Camacho [facility] Internal Medicine Work Phone: 09-08-2010 14:39-0400 Pulse (Heart Rate) 68 /min Subha Camacho [facility] Internal Medicine Work Phone: Comment on above: Pattern: Regular 09-08-2010 14:39-0400 Pulse Oximetry 97 % Subha Camacho [facility] Internal Medicine Work Phone: Comment on above: Room air 08-15-2010 16:10-0400 BMI (Body Mass Index) 31.7 kg/m2 Subha Camacho [facility] Internal Medicine Work Phone: 08-15-2010 16:10-0400 Body Temperature 97.5 [degF] Subha Camacho [facility] Internal Medicine Work Phone: Comment on above: Method: Oral 08-15-2010 16:10-0400 Body weight 94.58 kg Subha Camacho [facility] Internal Medicine Work Phone: 08-15-2010 16:10-0400 BP Diastolic 74 mm[Hg] Subha Camacho [facility] Internal Medicine Work Phone: Comment on above: Patient Position: Sitting; Cuff Location : Left Arm; Cuff Size: Standard 08-15-2010 16:10-0400 BP Systolic 126 mm[Hg] Subha Camacho [facility] Internal Medicine Work Phone: Comment on above: Patient Position: Sitting; Cuff Location : Left Arm; Cuff Size: Standard 08-15-2010 16:10-0400 BSA (Body Surface Area) 2.08 m2 Subha Camacho [facility] Internal Medicine Work Phone: 08-15-2010 16:10-0400 Height 172.72 cm Subha Camacho [facility] Internal Medicine Work Phone: 08-15-2010 16:10-0400 Pulse (Heart Rate) 72 /min Subha Camacho [facility] Internal Medicine Work Phone: Comment on above: Pattern: Regular 08-15-2010 16:10-0400 Respiratory Rate 16 /min Subha Camacho [facility] Internal Medicine Work Phone: Comment on above: Pattern: Unlabored 08-03-2010 10:35-0400 BMI (Body Mass Index) 31.7 kg/m2 Subha Camacho [facility] Internal Medicine Work Phone: 08-03-2010 10:35-0400 Body Temperature 98 [degF] Subha Camacho [facility] Internal Medicine Work Phone: Comment on above: Method: Oral 08-03-2010 10:35-0400 Body weight 94.58 kg Subha Camacho [facility] Internal Medicine Work Phone: 08-03-2010 10:35-0400 BP Diastolic 80 mm[Hg] Subha Camacho [facility] Internal Medicine Work Phone: Comment on above: Patient Position: Sitting; Cuff Location : Left Arm; Cuff Size: Standard 08-03-2010 10:35-0400 BP Systolic 130 mm[Hg] Subha Camacho [facility] Internal Medicine Work Phone: Comment on above: Patient Position: Sitting; Cuff Location : Left Arm; Cuff Size: Standard 08-03-2010 10:35-0400 BSA (Body Surface Area) 2.08 m2 Subha Camacho [facility] Internal Medicine Work Phone: 08-03-2010 10:35-0400 Height 172.72 cm Subha Camacho [facility] Internal Medicine Work Phone: 08-03-2010 10:35-0400 Pulse (Heart Rate) 64 /min Subha Camacho [facility] Internal Medicine Work Phone: Comment on above: Pattern: Regular 08-03-2010 10:35-0400 Respiratory Rate 17 /min Subha Camacho [facility] Internal Medicine Work Phone: Comment on above: Pattern: Unlabored 05-30-2010 15:25-0400 BMI (Body Mass Index) 31.7 kg/m2 Subha Camacho [facility] Internal Medicine Work Phone: 05-30-2010 15:25-0400 Body weight 94.58 kg Subha Camacho [facility] Internal Medicine Work Phone: 05-30-2010 15:25-0400 BP Diastolic 80 mm[Hg] Subha Camacho [facility] Internal Medicine Work Phone: Comment on above: Patient Position: Sitting; Cuff Location : Left Arm; Cuff Size: Large 05-30-2010 15:25-0400 BP Systolic 122 mm[Hg] Subha Camacho [facility] Internal Medicine Work Phone: Comment on above: Patient Position: Sitting; Cuff Location : Left Arm; Cuff Size: Large 05-30-2010 15:25-0400 BSA (Body Surface Area) 2.08 m2 Subha Camacho [facility] Internal Medicine Work Phone: 05-30-2010 15:25-0400 Height 172.72 cm Subha Camacho [facility] Internal Medicine Work Phone: 05-30-2010 15:25-0400 Pulse (Heart Rate) 72 /min Subha Camacho [facility] Internal Medicine Work Phone: Comment on above: Pattern: Regular 05-30-2010 15:25-0400 Respiratory Rate 20 /min Subha [facility] Work Phone: Comment on above: Pattern: Unlabored 01-31-2010 16:13-0500 BMI (Body Mass Index) 31.56 kg/m2 Subha Norris [facility] Internal Medicine Work Phone: 01-31-2010 16:13-0500 Body weight 94.15 kg Subha Camacho [facility] Internal Medicine Work Phone: 01-31-2010 16:13-0500 BP Diastolic 64 mm[Hg] Subha Camacho [facility] Internal Medicine Work Phone: Comment on above: Patient Position: Standing; Cuff Locatio n: Left Arm; Cuff Size: Standard 01-31-2010 16:13-0500 BP Systolic 118 mm[Hg] Subha Camacho [facility] Internal Medicine Work Phone: Comment on above: Patient Position: Standing; Cuff Locatio n: Left Arm; Cuff Size: Standard 01-31-2010 16:13-0500 BSA (Body Surface Area) 2.08 m2 Subha Camacho [facility] Internal Medicine Work Phone: 01-31-2010 16:13-0500 Height 172.72 cm Subha Camacho [facility] Internal Medicine Work Phone: 01-31-2010 16:13-0500 Pulse (Heart Rate) 60 /min Subha Camacho [facility] Internal Medicine Work Phone: Comment on above: Pattern: Regular 01-31-2010 16:13-0500 Respiratory Rate 20 /min Subha Camacho [facility] Internal Medicine Work Phone: Comment on above: Pattern: Unlabored 10-13-2009 15:46-0400 BMI (Body Mass Index) 30.15 kg/m2 Subha Norris [facility] Internal Medicine Work Phone: 10-13-2009 15:46-0400 Body weight 89.95 kg Subha Camacho [facility] Internal Medicine Work Phone: 10-13-2009 15:46-0400 BP Diastolic 84 mm[Hg] Subha Camacho [facility] Internal Medicine Work Phone: Comment on above: Patient Position: Sitting; Cuff Location : Left Arm; Cuff Size: Large 10-13-2009 15:46-0400 BP Systolic 128 mm[Hg] Subha Camacho [facility] Internal Medicine Work Phone: Comment on above: Patient Position: Sitting; Cuff Location : Left Arm; Cuff Size: Large 10-13-2009 15:46-0400 BSA (Body Surface Area) 2.04 m2 Subha Camacho [facility] Internal Medicine Work Phone: 10-13-2009 15:46-0400 Height 172.72 cm [facility] Work Phone: 10-13-2009 15:46-0400 Pulse (Heart Rate) 68 /min [facility] Work Phone: Comment on above: Pattern: Regular 10-13-2009 15:46-0400 Respiratory Rate 20 /min Subha Camacho [facility] Internal Medicine Work Phone: Comment on above: Pattern: Unlabored 06-09-2009 16:04-0400 BMI (Body Mass Index) 30.9 kg/m2 Subha Camacho [facility] Internal Medicine Work Phone: 06-09-2009 16:04-0400 Body weight 92.19 kg Subha Camacho [facility] Internal Medicine Work Phone: 06-09-2009 16:04-0400 BP Diastolic 82 mm[Hg] [facility] Work Phone: Comment on above: Patient Position: Sitting; Cuff Location : Left Arm; Cuff Size: Large 06-09-2009 16:04-0400 BP Systolic 118 mm[Hg] [facility] Work Phone: Comment on above: Patient Position: Sitting; Cuff Location : Left Arm; Cuff Size: Large 06-09-2009 16:04-0400 BSA (Body Surface Area) 2.06 m2 Subha Camacho [facility] Internal Medicine Work Phone: 06-09-2009 16:04-0400 Height 172.72 cm Subha [facility] Internal Medicine Work Phone: 06-09-2009 16:04-0400 Pulse (Heart Rate) 60 /min Subha Camacho [facility] Internal Medicine Work Phone: Comment on above: Pattern: Regular 06-09-2009 16:04-0400 Respiratory Rate 16 /min Suhba Camacho [facility] Internal Medicine Work Phone: Comment on above: Pattern: Unlabored 01-25-2009 16:44-0500 BMI (Body Mass Index) 31.69 kg/m2 Subha Camacho [facility] Internal Medicine Work Phone: 01-25-2009 16:44-0500 Body weight 94.55 kg Subha Camacho [facility] Internal Medicine Work Phone: 01-25-2009 16:44-0500 BP Diastolic 90 mm[Hg] Subha Camacho [facility] Internal Medicine Work Phone: Comment on above: Patient Position: Sitting; Cuff Location : Left Arm; Cuff Size: Large 01-25-2009 16:44-0500 BP Systolic 124 mm[Hg] Subha Camacho [facility] Internal Medicine Work Phone: Comment on above: Patient Position: Sitting; Cuff Location : Left Arm; Cuff Size: Large 01-25-2009 16:44-0500 BSA (Body Surface Area) 2.08 m2 Subha Camacho [facility] Internal Medicine Work Phone: 01-25-2009 16:44-0500 Head Circumference 0 cm Subha Camacho [facility] Internal Medicine Work Phone: 01-25-2009 16:44-0500 Height 172.72 cm Subha Camacho [facility] Internal Medicine Work Phone: 01-25-2009 16:44-0500 Pulse (Heart Rate) 80 /min Subha Camacho [facility] Internal Medicine Work Phone: Comment on above: Pattern: Regular 01-25-2009 16:44-0500 Respiratory Rate 20 /min Subha Camacho [facility] Internal Medicine Work Phone: Comment on above: Pattern: Unlabored 01-18-2009 14:06-0500 BMI (Body Mass Index) 31.69 kg/m2 Subha Camacho [facility] Internal Medicine Work Phone: 01-18-2009 14:06-0500 Body weight 94.55 kg Subha Camacho [facility] Internal Medicine Work Phone: 01-18-2009 14:06-0500 BP Diastolic 88 mm[Hg] Subha Camacho [facility] Internal Medicine Work Phone: Comment on above: Patient Position: Sitting; Cuff Location : Left Arm; Cuff Size: Large 01-18-2009 14:06-0500 BP Systolic 124 mm[Hg] Subha Camacho [facility] Internal Medicine Work Phone: Comment on above: Patient Position: Sitting; Cuff Location : Left Arm; Cuff Size: Large 01-18-2009 14:06-0500 BSA (Body Surface Area) 2.08 m2 Subha Camacho [facility] Internal Medicine Work Phone: 01-18-2009 14:06-0500 Head Circumference 0 cm Subha Camacho [facility] Internal Medicine Work Phone: 01-18-2009 14:06-0500 Height 172.72 cm Subha Camacho [facility] Internal Medicine Work Phone: 01-18-2009 14:06-0500 Pulse (Heart Rate) 60 /min Subha Camacho [facility] Internal Medicine Work Phone: Comment on above: Pattern: Regular 01-18-2009 14:06-0500 Respiratory Rate 20 /min Subha Camacho [facility] Internal Medicine Work Phone: Comment on above: Pattern: Unlabored Encounters Encounter Date Encounter Type Care Provider Facility Start: 12-03-2023 End: 12-03-2023 Telephone encounter Patriec Edwards MD Work Phone: [facility] Comment on above: Appointment Start: 12-03-2023 End: 12-03-2023 ambulatory PATRICE EDWARDS JR Facility:[facility] Start: 11-27-2023 End: 11-27-2023 ambulatory LILIAN Fall [facility] Facility:[facility] Start: 11-13-2023 End: 11-13-2023 Admission to same day surgery center Patrice Edwards MD Work Phone: [facility] Comment on above: schedule surgery Start: 11-13-2023 End: 11-13-2023 ambulatory Patrice Edwards Jr., MD Work Phone: [facility] Start: 11-13-2023 End: 11-13-2023 Telephone encounter Patrice Edwards MD Work Phone: Urology Comment on above: Schedule Surgery Start: 11-08-2023 End: 11-08-2023 Patient encounter procedure Patrice Edwards MD Work Phone: [facility] Comment on above: Kidney stones [N20.0 ] (Primary Dx) Start: 11-08-2023 End: 11-08-2023 ambulatory PATRICE EDWARDS JR Facility:[facility] Start: 11-01-2023 End: 11-01-2023 ambulatory [facility] Facility:[facility] Start: 11-01-2023 End: 11-01-2023 Patient encounter procedure Ida Carlton MD Work Phone: Orthopaedics Comment on above: Bilateral hip pain Start: 10-30-2023 End: 10-30-2023 ambulatory [facility] Facility:[facility] Start: 10-30-2023 End: 10-30-2023 Subsequent hospital visit by physician Haylee [facility] [place] Work Phone: Radiology Comment on above: Kidney stone [N20.0] Start: 10-25-2023 End: 10-25-2023 Patient encounter procedure Patrice Edwards MD Work Phone: [facility] Comment on above: Kidney stone (Primar y Dx); Elevated PSA; Flank pain; Encounter for observation for other suspected diseases and conditions ruled out Start: 10-25-2023 End: 10-25-2023 ambulatory PATRICE EDWARDS JR Facility:[facility] Start: 10-18-2023 End: 10-18-2023 ambulatory Justine Leary APRN.CNP Work Phone: [facility] [place] Comment on above: ultra sound Start: 10-18-2023 End: 10-18-2023 Telephone encounter Justine Leary APRN.CROP FARM HELPER Work Phone: Family Medicine [place] Comment on above: Results (Us Kidney/b ladder ) Start: 10-15-2023 End: 10-15-2023 ambulatory [facility] Facility:[facility] Start: 10-15-2023 End: 10-15-2023 Subsequent hospital visit by physician [facility] Work Phone: Radiology Comment on above: History of flank jourdan n [Z87.898] Start: 10-03-2023 Telephone encounter Justine garcia STEWARDESSES TEACHER.CROP FARM HELPER Work Phone: Family Medicine [place] Comment on above: Results (Labs/urine ) Start: 10-02-2023 End: 10-02-2023 Patient encounter procedure Justine Leary APRN.CROP FARM HELPER Work Phone: Family Medicine [place] Comment on above: History of flank jourdan n (Primary Dx); Dark urine; Elevated PSA Start: 10-02-2023 End: 10-02-[address] [facility] Facility:[facility] Start: 09-17-2023 Telephone encounter Justine garcia STEWARDESSES TEACHER.CROP FARM HELPER Work Phone: [facility] Comment on above: Results (Xray Hips ) Start: 09-14-2023 Telephone encounter Justine garcia STEWARDESSES TEACHER.CROP FARM HELPER Work Phone: [facility] [place] Comment on above: Results (Knee Xray ) Start: 09-12-2023 End: 09-12-2023 Subsequent hospital visit by physician Haylee [facility] Work Phone: Radiology Comment on above: Pain in both knees, unspecified chronicity [M25.561, M25.562] Start: 09-12-2023 End: 09-12-2023 ambulatory [facility] Facility:[facility] Start: 09-12-2023 End: 09-12-2023 [facility] STEWARDESSES TEACHER.CROP FARM HELPER Work Phone: [facility] Comment on above: Pain in both knees, unspecified chronicity (Primary Dx); Bilateral hip pain Start: 06-08-2023 ambulatory Ny Goldstein MA [facility] Comment on above: Population Health [facility] ([place] [employer] work[employer] - AWV, Care gaps, HCC gap closure - [place] PCSA) Start: 04-12-2023 End: 04-12-2023 ambulatory Jolene Romero DRINKING WATER TECHNICIAN Work Phone: [facility] Comment on above: Acute pain of right shoulder (Primary Dx); Chronic neck pain Start: 04-10-2023 End: 04-10-2023 ambulatory Bel O'Derrick PT [facility] Comment on above: Acute pain of right shoulder (Primary Dx); Chronic neck pain Start: 04-04-2023 End: 04-04-2023 ambulatory Bel O'Derrick PT [facility] Comment on above: Numbness of hand (Pr imary Dx); DDD (degenerative disc disease), cervical Start: 01-15-2023 End: 01-15-2023 ambulatory JUSTINE LEARY Facility:[facility] Start: 01-15-2023 End: 01-15-2023 Patient encounter procedure Jasmina Reyes PA-C Work Phone: Orthopaedics Comment on above: Bursitis of right sh oulder (Primary Dx); Acute pain of right shoulder; Chronic neck pain; Numbness of hand; DDD (degenerative disc disease), cervical Start: 11-23-2022 Telephone encounter Justine garcia APRN.CROP FARM HELPER Work Phone: [facility] Comment on above: Results (Labs and Xr ay ); Orders Start: 11-20-2022 End: 11-20-2022 Subsequent hospital visit by physician Haylee [facility] Work Phone: Radiology Comment on above: Acute pain of right shoulder [M25.511] Start: 11-20-2022 End: 11-20-2022 Patient encounter procedure Justine Leary APRN.CROP FARM HELPER Work Phone: Family Medicine [place] Comment on above: Medicare annual well ness visit, initial (Primary Dx); Chronic neck pain; Acute pain of right shoulder; Hyperlipidemia with target LDL less than 100; Elevated PSA Start: 10-10-2021 Telephone encounter Justine garcia STEWARDESSES TEACHER.CROP FARM HELPER Work Phone: [facility] Comment on above: Results (Cologuard) Start: 10-01-2021 Chart abstracting Justine Allen of STEWARDESSES TEACHER.CROP FARM HELPER Work Phone: [facility] Comment on above: Abstract; external d ocument Start: 09-29-2021 Telephone encounter Lilian williamson MD Work Phone: [facility] Comment on above: Results (Labs ([facility]) ) Start: 09-22-2021 End: 09-22-2021 Patient encounter procedure Justine Leary STEWARDESSES TEACHER.CROP FARM HELPER Work Phone: [facility] Comment on above: Nonintractable heada mandy, unspecified chronicity pattern, unspecified headache type (Primary Dx); Screening for colon cancer; Screening cholesterol level; Screening for diabetes mellitus; Elevated PSA; Encounter for immunization Start: 09-24-2013 End: 09-24-2013 Office outpatient visit 15 minutes Subha Camacho [facility] Start: 07-28-2013 End: 07-28-2013 Nursing evaluation of patient and report Subha Camacho [facility] Start: 07-18-2013 End: 07-18-2013 Patient encounter procedure Subha Camacho [facility] Start: 07-02-2013 End: 07-02-2013 Patient encounter procedure Subha Camacho [facility] Start: 06-11-2013 End: 06-11-2013 Patient encounter procedure Subha Camacho [facility] Start: 09-12-2012 End: 09-13-2012 Patient encounter procedure Subha Camacho [facility] Start: 07-08-2012 End: 07-08-2012 Patient encounter procedure Subha Camacho [facility] Start: 03-25-2012 End: 03-25-2012 Patient encounter procedure Subha Camacho [facility] Start: 01-08-2012 End: 01-08-2012 Patient encounter procedure Subha Camacho [facility] Start: 11-08-2011 End: 11-09-2011 Patient encounter procedure Subha Camacho [facility] Start: 09-06-2011 End: 09-06-2011 Patient encounter procedure Subha Camacho [facility] Start: 08-28-2011 End: 08-28-2011 Lab Order Subha Mireillefaith Quigley Wood Furniture Assembler al Medicine Start: 05-04-2011 End: 05-04-2011 Patient encounter procedure Subha Camacho [facility] Medicine Start: 04-27-2011 End: 04-27-2011 Patient encounter procedure Subha Camacho [facility] Start: 04-05-2011 End: 04-05-2011 Patient encounter procedure Subha Camacho [facility] Start: 10-19-2010 End: 10-19-2010 Patient encounter procedure Subha Camacho [facility] Start: 10-03-2010 End: 10-03-2010 Patient encounter procedure Subhacrow Marteon [facility] Start: 09-16-2010 End: 09-16-2010 Patient encounter procedure Subah Marteon [facility] Start: 09-12-2010 End: 09-12-2010 Annotation/Addendum Subha Camacho [facility] Wood Furniture Assembler al Medicine Start: 09-08-2010 End: 09-08-2010 Office outpatient visit 15 minutes Subha Camacho [facility] Start: 08-15-2010 End: 08-15-2010 Office outpatient visit 15 minutes Subha Mireille [facility] Medicine Start: 08-05-2010 End: 08-05-2010 Phone Encounter Subhacrow Marteon [facility] Wood Furniture Assembler al Medicine Start: 08-03-2010 End: 08-03-2010 Office outpatient visit 25 minutes Subha Camacho [facility] Start: 05-30-2010 End: 05-30-2010 Patient encounter procedure Subha Mireille [facility] Start: 05-23-2010 End: 05-23-2010 Erroneous Entry Subha Mireille [facility] Wood Furniture Assembler al Medicine Start: 01-31-2010 End: 01-31-2010 Patient encounter procedure Subhacrow Marteon [facility] Start: 10-13-2009 End: 10-14-2009 Patient encounter procedure Subha Mireille [facility] Start: 06-09-2009 End: 06-09-2009 Patient encounter procedure Subhacrow Marteon [facility] Start: 01-25-2009 End: 01-25-2009 Office outpatient visit 15 minutes Subha Camacho [facility] Start: 01-18-2009 End: 01-18-2009 Patient encounter procedure Subha Camacho [facility] Start: 01-18-2009 End: 01-18-2009 Historical Summary Subha Camacho [facility] Wood Furniture Assembler al Medicine Procedures Date Procedure Procedure Detail Performing Clinician Start: 11-08-2023 Urnls dip stick/tablet rgnt auto w/o microscopy Patrice Edwards MD Work Phone: Start: 10-30-2023 Ct abdomen & pelvis w/o contrast material Patrice Edwards MD Work Phone: Start: 10-25-2023 Urnls dip stick/tablet rgnt auto w/o microscopy Patrice Edwards MD Work Phone: Start: 10-02-2023 Urnls dip stick/tablet rgnt auto w/o microscopy Justine Leary APRN.CROP FARM HELPER Work Phone: Start: 09-12-2023 Radex hips bilateral with pelvis minimum 5 views Justine Leary STEWARDESSES TEACHER.CROP FARM HELPER Work Phone: Start: 11-21-2022 Lipid 1996 panel - Serum or Plasma Justine Leary STEWARDESSES TEACHER.CROP FARM HELPER Work Phone: Start: 11-20-2022 Radex spine cervical 4 or 5 views Justine Leary STEWARDESSES TEACHER.CROP FARM HELPER Work Phone: Start: 09-22-2021 Rayneer-[place]os[place] COVID-19 VACCINE, AGE 12+ YR (LOZANO TOP) Justine Leary STEWARDESSES TEACHER.CROP FARM HELPER Work Phone: Start: 09-22-2021 Adult depression screening assessment Justine Leary STEWARDESSES TEACHER.CROP FARM HELPER Work Phone: Start: 09-28-2020 Lipid 1996 panel - Serum or Plasma Justine Leary STEWARDESSES TEACHER.CROP FARM HELPER Work Phone: Start: 11-02-2014 End: 11-02-2014 Lower Ext/Jt Only/W Contrast Comments: See Note; NOTES: [facility] Imaging Services [address] [place] [address] MRI Report MR#: [id number] Acct: [id number] Name: BONNIE MARTINEZ Rep #: [id number] : 1955 M 58 From: Max Espinoza MD PCP: Subha Camacho DO Status: REG CLI Study: Lower Ext/Jt Only/W Contrast Date of Exam: 11/02/14 Exam# [id number] Ordering Dr: Bonnie Sanders MD STUDY: MRI ARTHROGRAM RIGHT HIP REASON FOR EXAM: Male, 58 years old. Right hip pain. No known injury. TECHNIQUE: Standardized fat and water weighted pulse sequences were obtained in all 3 orthogonal planes. The examination was performed following intra-articular injection of 12 mL of diluted gadolinium based contrast material. COMPARISON: None. 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 There is a fibrocystic lesion/herniation pit in the anterior aspect of the femoral head neck junction (axial T1 series 3 image 11). No associated labral tear is noted. There are minor degenerative changes with articular cartilage thinning in the weightbearing portion of the hip joint and a small subchondral cyst in the acetabulum (series 5 image 12). The alpha angle measures 73.6 degrees. The anteversion angle measures 8.3 degrees. Normal teres ligament. Normal gluteus minimus, medius and iliopsoas tendons and distal insertions. There is no trochanteric, iliopsoas or iliopectineal bursitis. Normal superior and inferior pubic rami. Normal pubic symphysis. Normal ischial tuberosity. Normal origin of the hamstring tendons. Normal visualized iliac wing, sacroiliac joint, and sacral ala. Normal visualized soft tissue structures of the pelvis. 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 Electronically Signed: Max Espinoza MD, FACR at 13:00 EDT , Service support [phone], CC: Bonnie Sanders MD; Subha Camacho DO Lead Tinner: Christel Malia Rush Work Phone: Start: 11-02-2014 End: 11-02-2014 Arthrogram Hip w/ MRI Comments: See Note; NOTES: [facility] Imaging Services [address] [place] [address] Radiology Report MR#: [id number] Acct: [id number] Name: BONNIE MARTINEZ Rep #: [id number] : 1955 M 58 From: Rhett Randall MD PCP: Subha Camacho DO Status: REG CLI Study: Arthrogram Hip w/ MRI Date of Exam: 11/02/14 Exam# [id number] Ordering Dr: Bonnie Sanders MD CLINICAL HISTORY: Male, 58 years old. Chronic right hip pain. PROCEDURE: ARTHROGRAM - RIGHT HIP CONSENT: The procedure as well as the benefits and possible complications including bleeding and infection were explained to the patient. Informed consent was obtained. Injection Information: 12 cc of MRI contrast material. Number of images obtained: One TECHNIQUE: The procedure as well as the benefits and possible complications were explained to the patient. Informed consent was obtained. Following local anesthetic application and under direct fluoroscopic guidance, a right hip arthrogram was performed. 12 cc of MRI contrast material was injected. The patient tolerated the procedure well. IMPRESSION: Successful right hip arthrogram with injection of 12 cc of MRI contrast material. Electronically Signed: Rhett Randall MD at 11:38 EDT Tel [phone], Service support [phone], RAD/Arthrogram Hip w/ MRI IMPRESSION: Successful right hip arthrogram with injection of 12 cc of MRI contrast material. Electronically Signed: Rhett Randall MD at 11:38 EDT Tel [phone], Service support [phone], CC: Bonnie Sanders MD; Subha Camacho DO Lead Tinner: Signed Malia Rush Work Phone: Start: 10-30-2014 End: 10-30-2014 Lower Ext/Jt Only/W Contrast Comments: See Note; NOTES: [facility] Imaging Services [address] [place] [address] MRI Report MR#: [id number] Acct: [id number] Name: BONNIE MARTINEZ Rep #: [id number] : 1955 M 58 From: Addison Paige MD PCP: Subha Camacho DO Status: REG CLI Study: Lower Ext/Jt Only/W Contrast Date of Exam: 10/30/14 Exam# [id number] Ordering Dr: Bonnie Sanders MD STUDY: MRI LEFT HIP REASON FOR EXAM: Male, 58 years old. Left hip pain extending down the leg TECHNIQUE: Standardized fat and water weighted pulse sequences were obtained in all 3 orthogonal planes. COMPARISON: None. FINDINGS: Normal hip joint without articular joint space narrowing. Normal acetabulum. Small tear of the anterior acetabular labrum, sagittal series 6 image 13/28 and series 9 image 12/18. There is a subchondral cyst involving the lateral aspect of the femoral head. Normal femoral neck and intratrochanteric region. There is no demonstrated fracture. Normal gluteus minimus, medius and iliopsoas tendons and distal insertions. There is no trochanteric, iliopsoas or iliopectineal bursitis. Normal superior and inferior pubic rami. Normal pubic symphysis. Normal ischial tuberosity. Normal origin of the hamstring tendons. Normal visualized iliac wing, sacroiliac joint, and sacral ala. Normal visualized soft tissue structures of the pelvis. IMPRESSION: Mild degenerative changes with small subchondral cyst of the femoral head. There is focal tear of the acetabular labrum. No fracture or avascular necrosis. Electronically Signed: Addison Paige MD at 13:58 EDT , Service support [phone], CC: Bonnie Sanders MD; Subha Camacho DO Lead Tinner: Signed Malia Rush Work Phone: Start: 10-30-2014 End: 10-30-2014 Arthrogram Hip w/ MRI Comments: See Note; NOTES: [facility] Imaging Services [address] [facility] [place] [address] Radiology Report MR#: [id number] Acct: [id number] Name: BONNIE MARTINEZ Rep #: [id number] : 1955 M 58 From: Diana Gallardo MD PCP: Subha Camacho DO Status: REG CLI Study: Arthrogram Hip w/ MRI Date of Exam: 10/30/14 Exam# [id number] Ordering Dr: Bonnie Sanders MD PROCEDURE: ARTHROGRAM - LEFT HIP CLINICAL HISTORY: , 58 old. Left hip pain RADIATION DOSAGE (If Supplied By Facility): CTDIvol = ( ) mGy, DLP = ( ) mGycm CONSENT: Informed consent was obtained and signed SEDATION: Local anesthesia 10 mL of lidocaine 1% FLUOROSCOPY TIME (if supplied): (0:07) minutes/seconds Injection Information: Mixture containing 0.2 mL of Omniscan, 10 mL of Omnipaque 300 and 10 mL of normal saline. Number of images obtained: 6 TECHNIQUE: Under fluoroscopic guidance using sterile technique and after infiltration of the skin and subcutaneous soft tissues with 10 mL of lidocaine 1% a 22-gauge needle is introduced in the left hip joint. Tendon of the above mentioned mixture were injected in the left hip joint. FINDINGS: The left hip joint capsule is normal in size. There is no evidence of osteolytic or blastic lesions. There is no evidence of intra-articular loose bodies. IMPRESSION: There is no evidence of intra-articular loose bodies. Electronically Signed: Emil Gallardo MD at 13:44 EDT Tel , Service support [phone], RAD/Arthrogram Hip w/ MRI IMPRESSION: There is no evidence of intra-articular loose bodies. Electronically Signed: Emil Gallardo MD at 13:44 EDT Tel , Service support [phone], CC: Bonnie Sanders MD; Subha Camacho DO Lead Tinner: Signed Malia Rush Work Phone: Start: 06-11-2013 End: 06-11-2013 Ecg routine ecg w/least 12 lds w/i&r [MEASUREMENTS ANALYSIS] Date of Test: 06/11/2013 16:34:23; Heart Rate: 61; MN Interval: 152; QRS: 106; QT Interval: 398; Corrected QT Interval (QTc): 399; P Wave [place]: 29; QRS Wave [place]: -15; T Wave [place]: -1; Blood Pressure: 132/84 [ECG DIAGNOSTIC STATEMENTS] Date of Test: 06/11/2013 16:34:23; Summary: Sinus Rhythm WITHIN NORMAL LIMITS Subha Camacho Work Phone: Comment on above: nsr no acute Plan of Treatment Date Care Activity Detail Author Start: 2032 RSV Vaccine (1 - 1-d ose 75+ series) RSV Vaccine (1 - 1-dose 75+ series) [facility] Start: 10-01-2028 Prostate specific antigen measurement Prostate Cancer Screening Discussion [facility] Start: 11-22-2027 Lipid 1996 panel - Serum or Plasma Lipid Screening [facility] Start: 11-22-2027 Lipid panel Lipid Screening [facility] Start: 11-22-2027 Prostate Cancer Screening Discussion Prostate Cancer Screening Discussion [facility] Start: 11-22-2027 Prostate specific antigen measurement Prostate Cancer Screening Discussion [facility] Start: 06-28-2027 Urine microalbumin profile [facility] Start: 10-01-2026 Diabetes Screening Diabetes Screenin g [facility] Start: 11-21-2025 Diabetes Screening Diabetes Screenin g [facility] Start: 09-28-2025 Lipid 1996 panel - Serum or Plasma Lipid Screening [facility] Start: 09-28-2025 LIPID SCREEN LIPID SCREEN [facility] Start: 11-05-2024 PROSTATE CANCER SCREENING DISCUSSION PROSTATE CANCER SCREENING DISCUSSION [facility] Start: 10-03-2024 COLOGUARD (FIT-DNA) COLOGUARD (FIT-D NA) [facility] Start: 10-03-2024 Colorectal Cancer Screening Colorectal Cancer Screening [facility] Start: 10-03-2024 Screening for malign ant neoplasm of colon [facility] Start: 10-01-2024 Annual PCP Team 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 Disease Visit Annual PCP Team Chronic Disease Visit [facility] Start: 09-11-2024 Annual PCP Team 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 Disease Visit Annual PCP Team Chronic Disease Visit [facility] Start: 09-11-2024 BP Controlled (<130/80) BP Controlle d (<130/80) [facility] Start: 02-06-2024 End: 02-06-2024 Patient encounter procedure 02/06/2024 10:20 AM EST Appointment [facility] [address] [place] [address] Encounter for observation for other suspected diseases and conditions ruled out [Z03.89] [facility] Comment on above: Encounter for observ ation for other suspected diseases and conditions ruled out [Z03.89] Start: 01-09-2024 End: 01-09-2024 Patient encounter procedure 01/09/2024 2:00 PM EST Office Visit [facility] [address] [place] [phone] Patrice Edwards Jr., MD [address] [place] [address] post op, kub prior [facility] Comment on above: post op, kub prior Start: 12-10-2023 End: 01-01-2025 XR Abdomen Supine and Upright XR ABDOMEN 1V SUPINE Radiology Routine Kidney stone Expected: 12/10/2023, Expires: 01/01/2025 [facility] Work Phone: Comment on above: Expected: 12/10/2023 , Expires: 01/01/2025 Start: 12-03-2023 End: 12-03-2023 Lithotripsy [facility] shock wave EXTRACORPOREAL SHOCKWAVE LITHOTRIPSY UNILATERAL Calculus, renal 12/03/2023 10:18 AM EDT [place] [facility] Start: 11-21-2023 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 Team 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 Disease Visit Annual PCP Team Chronic Disease Visit [facility] Start: 11-21-2023 BP Controlled (<130/80) BP Controlle d (<130/80) [facility] Start: 11-08-2023 End: 11-08-2023 Patient encounter procedure 11/08/2023 10:00 AM EDT Office Visit [facility] [address] [place] [phone] Patrice Edwards Jr., MD [address] [place] [address] follow up, CT and KUB prior [facility] Comment on above: follow up, CT and KU B prior Start: 11-06-2023 End: 11-06-2023 Patient encounter procedure 11/06/2023 4:00 PM EDT Office Visit Urology [address] [place] [address] Paulino Turner PA-C [address] [place] [address] Elevated PSA [R97.20] Urology Comment on above: Elevated PSA [R97.20 ] Start: 11-01-2023 End: 11-01-2023 Patient encounter procedure 11/01/2023 11:00 AM EDT Office Visit Orthopaedics [address] [id number] Ida Carlton MD [address] [id number] R/S from 10/15 Orthopaedics Comment on above: R/S from 10/15 Start: 10-30-2023 End: 10-30-2023 Patient encounter procedure 10/30/2023 11:40 AM EDT Appointment Cat Scan [address] [place] [address] Kidney stone [N20.0]; Flank pain [R10.9] Cat Scan Comment on above: Kidney stone [N20.0] ; Flank pain [R10.9] Start: 10-21-2023 Covid-19 Vaccine () Covid-19 Vaccine () [facility] Start: 10-21-2023 Covid-19 Vaccine () Covid-19 Vaccine () [facility] Start: 10-21-2023 Influenza vaccination [facility] Start: 10-16-2023 End: 10-16-2023 Patient encounter procedure 10/16/2023 11:20 AM EDT Office Visit Orthopaedics [address] [id number] Ida Carlton MD [address] [address] Bilateral hip pain [M25.551, M25.552] Orthopaedics Comment on above: Bilateral hip pain [ M25.551, M25.552] Start: 10-15-2023 End: 10-15-2023 Patient encounter procedure 10/15/2023 10:00 AM EDT Appointment Radiology [address] [place] [address] Flank pain [R10.9]; Dark urine [R82.998] Radiology Comment on above: Flank pain [R10.9]; Dark urine [R82.998] Start: 09-29-2023 DIABETES SCREEN DIABETES SCREEN [facility] Start: 09-29-2023 Diabetes Screening Diabetes Screenin g [facility] Start: 02-19-2023 Advance Directive Discussion Advance Directive Discussion [facility] Start: 02-19-2023 Behavioral Health Screening Behavioral Health Screening [facility] Start: 02-19-2023 Depression Assessment Depression Ass essment [facility] Start: 2022 Advance Directive Discussion Advance Directive Discussion [facility] Start: 2022 Pneumococcal Vaccine : 65+ (1 - PCV) Pneumococcal Vaccine: 65+ (1 - PCV) [facility] Start: 2022 Pneumococcal Vaccine : 65+ (1 of 1 - PCV) Pneumococcal Vaccine: 65+ (1 of 1 - PCV) [facility] Start: 11-20-2022 End: 01-20-2023 Comprehensive metabolic 2000 panel - Serum or Plasma COMP METABOLIC PANEL Lab Routine Medicare annual wellness visit, initial Expected: 11/20/2022, Expires: 01/20/2023 [facility] Work Phone: Comment on above: Expected: 11/20/2022 , Expires: 01/20/2023 Start: 11-20-2022 End: 01-20-2023 Lipid 1996 panel - Serum or Plasma LIPID PANEL BASIC Lab Routine Hyperlipidemia with target LDL less than 100 Expected: 11/20/2022, Expires: 01/20/2023 [facility] Work Phone: Comment on above: Expected: 11/20/2022 , Expires: 01/20/2023 Start: 11-20-2022 End: 01-20-2023 Prostate Specific Ag Free [Mass/volume] in Serum or Plasma PSA FREE Lab Routine Elevated PSA Expected: 11/20/2022, Expires: 01/20/2023 [facility] Work Phone: Comment on above: Expected: 11/20/2022 , Expires: 01/20/2023 Start: 10-20-2022 Covid-19 Vaccine ( season) Covid-19 Vaccine ( season) [facility] Start: 10-20-2022 Influenza vaccination Influenza Vacc ine (#1) [facility] Start: 09-22-2022 Adult depression screening assessment DEPRESSION SCREENING [facility] Start: 09-22-2022 ANNUAL PCP TEAM CONVEX GRINDER OPERATOR HARRIET DISEASE VISIT ANNUAL PCP TEAM CHRONIC DISEASE VISIT [facility] Start: 09-22-2022 BP CONTROLLED (<130/80) BP CONTROLLE D (<130/80) [facility] Start: 01-22-2022 COVID-19 VACCINE (4 - Booster for Pfizer series) COVID-19 VACCINE (4 - Booster for Pfizer series) [facility] Start: 11-17-2021 COVID-19 VACCINE (4 - Booster for Pfizer series) COVID-19 VACCINE (4 - Booster for Pfizer series) [facility] Start: 11-17-2021 Covid-19 Vaccine (4 - Pfizer series) Covid-19 Vaccine (4 - Pfizer series) [facility] Start: 10-20-2021 Influenza vaccination INFLUENZA (#1) [facility] Start: 10-05-2021 COLORECTAL CANCER SCREENING COLORECTAL CANCER SCREENING [facility] Start: 10-05-2021 FECAL OCCULT BLOOD FECAL OCCULT BLOO D [facility] Start: 10-05-2021 Screening for malign ant neoplasm of colon Fecal Occult Blood [facility] Start: 09-22-2021 End: 11-22-2021 Comprehensive metabolic 2000 panel - Serum or Plasma COMP METABOLIC PANEL Lab Routine Nonintractable headache, unspecified chronicity pattern, unspecified headache type Expected: 09/22/2021, Expires: 11/22/2021 [facility] Work Phone: Comment on above: Expected: 09/22/2021 , Expires: 11/22/2021 Start: 09-22-2021 End: 11-22-2021 Hemoglobin A1c in Blood HGB A1C Lab Routine Screening for diabetes mellitus Expected: 09/22/2021, Expires: 11/22/2021 [facility] Work Phone: Comment on above: Expected: 09/22/2021 , Expires: 11/22/2021 Start: 09-22-2021 End: 11-22-2021 Lipid 1996 panel - Serum or Plasma LIPID PANEL BASIC Lab Routine Screening cholesterol level Expected: 09/22/2021, Expires: 11/22/2021 [facility] Work Phone: Comment on above: Expected: 09/22/2021 , Expires: 11/22/2021 Start: 09-22-2021 End: 11-22-2021 Prostate Specific Ag Free [Mass/volume] in Serum or Plasma PSA FREE Lab Routine Elevated PSA Expected: 09/22/2021, Expires: 11/22/2021 [facility] Work Phone: Comment on above: Expected: 09/22/2021 , Expires: 11/22/2021 Start: 02-19-2021 DEPRESSION ASSESSMENT DEPRESSION ASS ESSMENT [facility] Start: 2017 RSV Vaccine (1 - 1-d ose 60+ series) RSV Vaccine (1 - 1-dose 60+ series) [facility] Start: 2017 RSV Vaccine (1 - Ris k 60-74 years 1-dose series) RSV Vaccine (1 - Risk 60-74 years 1-dose series) [facility] Start: 07-18-2013 Provider Instruction s for Treatment Skin Infection - Signs and Symptoms [facility] Work Phone: Start: 07-02-2013 Provider Instruction s for Treatment Punch Biopsy with Epi [facility] Work Phone: Start: 06-11-2013 Provider Instruction s for Treatment [facility] Work Phone: Start: 09-13-2012 Provider Instruction s for Treatment Shave Biopsy without Epi [facility] Work Phone: Start: 09-12-2012 Patient Education Instructions for the Patient Before and After Surgery *: instructions [facility] Work Phone: Start: 07-08-2012 Patient Education Allergies: allerge ns [facility] Work Phone: Start: 07-08-2012 Provider Instruction s for Treatment [facility] Work Phone: Start: 01-08-2012 Blood occult fecal h gb deter ia qual feces 1-3 FECAL OCCULT- Tubes sent home (47167) [facility] Work Phone: Start: 01-08-2012 Provider Instruction s for Treatment [facility] Work Phone: Start: 11-09-2011 Provider Instruction s for Treatment Skin Tags [facility] Work Phone: Start: 11-08-2011 Patient Education Skin (Cutane ous) Biopsy: cutaneous biopsy [facility] Work Phone: Start: 09-06-2011 Patient Education High Cholest lorie (Hypercholesterolemia) *: cardiovascular health [facility] Work Phone: Start: 09-06-2011 Provider Instruction s for Treatment [facility] Work Phone: Start: 05-04-2011 Provider Instruction s for Treatment [facility] Work Phone: Start: 05-04-2011 Blood occult fecal h gb deter ia qual feces 1-3 FECAL OCCULT- Tubes sent home (85967) [facility] Work Phone: Start: 04-05-2011 Provider Instruction s for Treatment *Antibiotic Usage Education - Male [facility] Work Phone: Start: 10-19-2010 Provider Instruction s for Treatment [facility] Work Phone: Start: 10-03-2010 Provider Instruction s for Treatment Cryotherapy [facility] Work Phone: Start: 09-16-2010 Provider Instruction s for Treatment Diarrhea instructions [facility] Work Phone: Start: 09-16-2010 Antibody giardia lamblia GIARDIA LAMBLIA ANTIBODY (92413) [facility] Work Phone: Start: 09-16-2010 Cul bact stool aerob ic isol salmonella&shigell CHRISTOPHER CULTURE-STOOL (76981) [facility] Work Phone: Start: 09-16-2010 Leukocyte assmt feca l qual/semiquantitative LEUKOCYTE COUNT, FECAL (72697) [facility] Work Phone: Start: 09-16-2010 Culture bacterial an y source anaerobic iso&id C-DIFFICILE, STOOL (67674) [facility] Work Phone: Start: 09-08-2010 Provider Instruction s for Treatment Follow up in 1 week with [facility] or [facility] for removal of keratosis of head, leg, and back [facility] Work Phone: Start: 08-15-2010 Ova&parasites direct smears concentration & id OVA & PARASITE DIR SMEAR ([id number]) [facility] Work Phone: Start: 08-15-2010 Culture bacterial an y source anaerobic iso&id C-DIFFICILE, STOOL (80531) [facility] Work Phone: Start: 08-15-2010 Provider Instruction s for Treatment [facility] Work Phone: Start: 08-03-2010 Provider Instruction s for Treatment [facility] Work Phone: Start: 08-03-2010 Blood occult peroxid ase actv qual feces 1 deter OCCULT BLOOD FECES SCREEN (62053) [facility] Work Phone: Start: 08-03-2010 Ova&parasites direct smears concentration & id OVA & PARASITE DIR SMEAR ([id number]) [facility] Work Phone: Start: 08-03-2010 Cul bact stool aerob ic isol salmonella&shigell CHRISTOPHER CULTURE-STOOL (46422) [facility] Work Phone: Start: 08-03-2010 Culture bacterial an y source anaerobic iso&id C-DIFFICILE, STOOL (26743) [facility] Work Phone: Start: 08-03-2010 Leukocyte assmt feca l qual/semiquantitative LEUKOCYTE COUNT, FECAL (38790) [facility] Work Phone: Start: 05-30-2010 Provider Instruction s for Treatment [facility] Work Phone: Start: 01-31-2010 Provider Instruction s for Treatment [facility] Work Phone: Start: 10-13-2009 Provider Instruction s for Treatment [facility] Work Phone: Start: 06-09-2009 Lipid panel LIPID PANEL ([id number]) [facility] Work Phone: Comment on above: do before next visit Start: 06-09-2009 Provider Instruction s for Treatment [facility] Work Phone: Start: 01-25-2009 Lipid panel LIPID PANEL (93061) [facility] Work Phone: Comment on above: do in 4 months Start: 01-25-2009 Provider Instruction s for Treatment [facility] Work Phone: Start: 01-18-2009 Lipid panel LIPID PANEL (67700) [facility] Work Phone: Start: 01-18-2009 Provider Instruction s for Treatment [facility] Work Phone: Start: 2002 COLOGUARD (FIT-DNA) COLOGUARD (FIT-D NA) [facility] Start: 2002 Colonoscopy COLONOSCOPY [facility] Start: [address] COLONOGRAPHY [facility] Start: 2002 Screening for malign ant neoplasm of colon [facility] Start: 2002 SIGMOIDOSCOPY SIGMOIDOSCOPY [facility] Start: 12-05-1975 Anxiety Screening Anxiety Screening [facility] Start: 12-05-1975 Depression Screening Depression Scre ening [facility] Bacteria identified in Urine by Culture URINE CULTURE Microbiology Routine History of flank pain Dark urine 10/02/2023 10:16 AM EDT [facility] COLOGUARD COLOGUARD Lab Ro utine Screening for colon cancer Ordered: 09/22/2021 [facility] Work Phone: Comment on above: Ordered: 09/22/2021 End: 11-23-2024 CT Abdomen and Pelvis WO contrast CT FLANK WO IVCON Radiology Routine Kidney stone Flank pain 1 Occurrences starting 10/25/2023 until 11/23/2024 [facility] Work Phone: Comment on above: 1 Occurrences starti ng 10/25/2023 until 11/23/2024 End: 11-23-2024 MR Prostate WO and W contrast IV MRI PROSTATE WO/W IVCON Radiology Routine Encounter for observation for other suspected diseases and conditions ruled out 1 Occurrences starting 10/25/2023 until 11/23/2024 [facility] Comment on above: 1 Occurrences starti ng 10/25/2023 until 11/23/2024 End: 12-20-2023 Radex spine cervical 4 or 5 views XR CERV OTHER 4V AP/LAT/OBL Radiology Routine Chronic neck pain 1 Occurrences starting 11/20/2022 until 12/20/2023 [facility] Work Phone: Comment on above: 1 Occurrences starti ng 11/20/2022 until 12/20/2023 Radex spine cervical 4 or 5 views XR CERV OTHER 4V AP/LAT/OBL Radiology Routine Chronic neck pain 11/20/2022 11:21 AM EDT [facility] Work Phone: Urinalysis complete panel - Urine URINALYSIS, WITH MICROSCOPIC Lab Routine History of flank pain Dark urine 10/02/2023 10:16 AM EDT [facility] End: 02-14-2024 US ELBOW RIGHT US ELBOW RIGHT Radiology Routine Numbness of hand 1 Occurrences starting 01/15/2023 until 02/14/2024 [facility] Work Phone: Comment on above: 1 Occurrences starti ng 01/15/2023 until 02/14/2024 End: 10-31-2024 US Kidney - bilateral and Urinary bladder US KIDNEY/BLADDER Radiology Routine History of flank pain Dark urine 1 Occurrences starting 10/02/2023 until 10/31/2024 [facility] Work Phone: Comment on above: 1 Occurrences starti ng 10/02/2023 until 10/31/2024 US Kidney - bilatera l and Urinary bladder US KIDNEY/BLADDER Radiology Routine History of flank pain Dark urine 10/15/2023 10:25 AM EDT [facility] Work Phone: End: 02-14-2024 Us lmtd joint/oth nonvasc xtr strux r-t w/img US ELBOW LEFT Radiology Routine Numbness of hand 1 Occurrences starting 01/15/2023 until 02/14/2024 [facility] Work Phone: Comment on above: 1 Occurrences starti ng 01/15/2023 until 02/14/2024 End: 11-23-2024 XR Abdomen Supine and Upright XR ABDOMEN 1V SUPINE Radiology Routine Kidney stone Flank pain 1 Occurrences starting 10/25/2023 until 11/23/2024 [facility] Comment on above: 1 Occurrences starti ng 10/25/2023 until 11/23/2024 XR Abdomen Supine an d Upright XR ABDOMEN 1V SUPINE Radiology Routine Kidney stone Flank pain 10/30/2023 11:35 AM EDT [facility] Work Phone: End: 10-11-2024 XR HIP BILATERAL 5V PEL/AP/LAT EACH HIP XR HIP BILATERAL 5V PEL/AP/LAT EACH HIP Radiology Routine Bilateral hip pain 1 Occurrences starting 09/12/2023 until 10/11/2024 [facility] Comment on above: 1 Occurrences starti ng 09/12/2023 until 10/11/2024 XR HIP BILATERAL 5V PEL/AP/LAT EACH HIP XR HIP BILATERAL 5V PEL/AP/LAT EACH HIP Radiology Routine Bilateral hip pain 09/12/2023 1:56 PM EDT [facility] End: 10-11-2024 XR Knee - bilateral 4 Views XR KNEE GENERAL 4V AP BOTH/PA BOTH/LAT/MERC BILATERAL Radiology Routine Pain in both knees, unspecified chronicity 1 Occurrences starting 09/12/2023 until 10/11/2024 [facility] Work Phone: Comment on above: 1 Occurrences starti ng 09/12/2023 until 10/11/2024 XR Knee - bilateral 4 Views XR KNEE GENERAL 4V AP BOTH/PA BOTH/LAT/MERC BILATERAL Radiology Routine Pain in both knees, unspecified chronicity 09/12/2023 1:56 PM EDT [facility] End: 12-20-2023 XR SHOULDER GENERAL 3V OR MORE AP/TRUE AP/OTHER RIGHT XR SHOULDER GENERAL 3V OR MORE AP/TRUE AP/OTHER RIGHT Radiology Routine Acute pain of right shoulder 1 Occurrences starting 11/20/2022 until 12/20/2023 [facility] Work Phone: Comment on above: 1 Occurrences starti ng 11/20/2022 until 12/20/2023 XR SHOULDER GENERAL 3V OR MORE AP/TRUE AP/OTHER RIGHT XR SHOULDER GENERAL 3V OR MORE AP/TRUE AP/OTHER RIGHT Radiology Routine Acute pain of right shoulder 11/20/2022 11:21 AM EDT [facility] Work Phone: [facility] Work Phone: [facility] Work Phone: [facility] Work Phone: [facility] Work Phone: [facility] Work Phone[facility] Work Phone: [facility] Work Phone: [facility] Work Phone: [facility] Work Phone: [facility] Work Phone: [facility] Work Phone: [facility] Work Phone: [facility] Work Phone: [facility] Work Phone: [facility] Immunizations Immunization Date Immunization Notes Care Provider Rajan gamez 09-22-2021 COVID-19 vaccine, ag e 12+ yr (PFIZER-BIONTECH - [facility]) Justine Tannhof STEWARDESSES TEACHER.CROP FARM HELPER Work Phone: [facility] 11-23-2020 influenza, injectabl e, quadrivalent, contains preservative Justine Tannhof STEWARDESSES TEACHER.CROP FARM HELPER Work Phone: [facility] Work Phone: 11-23-2020 zoster vaccine recombinant Justine Tannhof STEWARDESSES TEACHER.CROP FARM HELPER Work Phone: [facility] Work Phone: 11-23-2020 influenza virus vaccine, unspecified formulation Justine Tannhof STEWARDESSES TEACHER.CROP FARM HELPER Work Phone: [facility] 09-23-2020 zoster vaccine recombinant Justine Tannhof STEWARDESSES TEACHER.CROP FARM HELPER Work Phone: [facility] 11-05-2019 influenza, injectabl e, quadrivalent, contains preservative Justine Tannhof STEWARDESSES TEACHER.CROP FARM HELPER Work Phone: [facility] 11-21-2018 influenza, seasonal, injectable Justine Tannhof STEWARDESSES TEACHER.CROP FARM HELPER Work Phone: [facility] 06-27-2017 tetanus toxoid, redu jose ramon diphtheria toxoid, and acellular pertussis vaccine, adsorbed Justine Tannhof STEWARDESSES TEACHER.CROP FARM HELPER Work Phone: [facility] 11-21-2016 influenza, seasonal, injectable Justine Tannhof STEWARDESSES TEACHER.CROP FARM HELPER Work Phone: [facility] 12-01-2015 influenza, seasonal, injectable Justine Tannjennifer STEWARDESSES TEACHER.CROP FARM HELPER Work Phone: [facility] 09-01-2008 tetanus and diphther ia toxoids, adsorbed, preservative free, for adult use (2 Lf of tetanus toxoid and 2 Lf of diphtheria toxoid) Justine Leary TARAS.CROP FARM HELPER Work Phone: [facility] Payers Date Payer Category Payer Medicare MEDICARE MEDICAR E A AND B [id number] 2022-Present [phone] [address] [address] [place] [address] Medicare [id number] 2022 Private Health Insurance [facility] AARP SUPPLEMENT [id number] 2022-Present [phone] [address] [place] [address] Indemnity [id number] 2022 Medicare [id number] 2022 Unknown [id number] 2021 Unknown 2021 Unknown DAISY SEYMOUR O DAVION [id number] 2021-Present [phone] [address] [place] [address] [facility] [id number] Social History Date Type Detail Facility Start: 11-16-2022 End: 10-25-2023 Alcohol Use Alcohol Use [facility] Work Phone: Comment on above: Occasional alcohol u se 1 tea QD , heterosexua l Electrition Tobacco use: Tobacco use: [facility] Work Phone: Comment on above: 05/04/11 Start: 06-01-2017 End: 11-20-2022 Tobacco smoking status NHIS Never smoked tobacco [facility] Start: 09-22-2021 End: 12-03-2023 Alcohol intake Current drinker of alcohol (finding) [facility] Start: 11-04-2019 History SDOH Alcohol Frequency 3 [facility] Start: 11-04-2019 End: 04-19-2021 History SDOH Alcohol Std Drinks 1 [facility] Start: 11-04-2019 End: 04-19-2021 History SDOH Alcohol Binge 2 [facility] Start: 12-03-2019 History SDOH Social Connections Phone 98 [facility] Start: 11-04-2019 History SDOH Social Connections Living 4 [facility] Start: 12-03-2019 History SDOH Physica l Activity DPW 6 [facility] Start: 11-03-2019 Education 12 [facility] Start: 1955 Sex Assigned At Male C [facility] Start: 09-12-2021 End: 09-22-2021 Exposure to SARS-CoV-2 (event) Not sure [facility] Start: 06-01-2017 End: 11-20-2022 Tobacco use and exposure Smokeless tobacco non-user [facility] Start: 11-16-2022 End: 10-25-2023 [facility] Has the [employer], or water [employer] threatened to shut off services in your home in past 12Mo No [facility] Frequency of Social Gatherings with Friends and Family Not on file [facility] Are you now , , , , never or living with a partner? [facility] How often to you hav e a drink containing alcohol? 2-4 times a month [facility] How many standard drinks containing alcohol do you have on a typical day? 1 or 2 [facility] How often do you hav e 6 or more drinks on 1 occasion? Never [facility] Do you feel stress - tense, restless, nervous, or anxious, or unable to sleep at night because your mind is troubled all the time - these days [OSQ] Not at all [facility] (I/We) worried wheth er (my/our) food would run out before (I/we) got money to buy more. Never true [facility] Start: 11-03-2019 Gender identity Identifies as male gender (finding) [facility] Start: 11-03-2019 Sexual orientation Choose not to disclose [facility] Clinical Notes 09-22-2021 to 12-03-2023 Telephone Encounter - Sue Griffin - 12/03/2023 2:01 PM EDTTelephone Encounter - Sue Griffin - 12/03/2023 2:01 PM EDTTelephone Encounter - Patrice Edwards Jr., MD - 12/03/2023 10:17 AM EDT Note Date & Type Note Facility 12-03-2023 Telephone encounter Note Spoke to patient Patient is scheduled January 09, 2024 at 2pm, [facility] location, kub prior Patient agrees and understands Thank you Sue [facility] 12-03-2023 Miscellaneous Notes Spoke to patient Patient is scheduled January 09, 2024 at 2pm, [facility] location, kub prior Patient agrees and understands Thank you Sue [facility] 12/03/23 Fu with me 4 weeks Kub prior ordered documented in this encounter [facility] 12-03-2023 Note HNO ID: [id number] Author: SAMINA MCKEON APRN.RUBBER INSULATOR Service: Anesthesiology Author Type: Nurse Heading Up Machine Operator Type: Anesthesia Procedure Notes Filed: 12/03/2023 10:28 Note Text: ANESTHESIOLOGY PROCEDURE NOTE Airway General Information Procedure Start Time/Medication Administration: 12/03/2023 10:22 AM Procedure End Time: 12/03/2023 10:22 AM Patient location during procedure: OR Timeout Performed Pre-procedure: timeout performed Consent Obtained: Yes Patient identity confirmed: arm band Staffing RUBBER INSULATOR: Samina Mckeon APRN.RUBBER INSULATOR Performed by: ADALBERTO Indications and Patient Condition Indications for airway management: anesthesia Preoxygenated: yes anesthesia circuit Patient position: sniffing Method: asleep Final Airway Details Final airway type: supraglottic airway Number of attempts at approach: 1 Final Supraglottic Airway: i-gel Size 5 Seal Adequate: yes SIGNATURE: Samina Mckeon APRN.CRNA PATIENT NAME: Bonnie Martinez DATE: December 03, 2023 TIME: 10:28 AM CSN: [id number] [facility] [facility] 12-03-2023 Telephone encounter Note [facility] or 12/03/23 Fu with me 4 weeks Kub prior ordered [facility] 11-13-2023 Telephone encounter Note Spoke with pt's and surgery planned for 12/03/23. Joyce Marley [facility] 11-13-2023 Miscellaneous Notes Spoke with pt's and surgery planned for 12/03/23. Joyce Marley documented in this encounter [facility] 11-13-2023 Telephone encounter Note Pt's notified to check pharmacy. Joyce Marley [facility] 11-13-2023 Miscellaneous Notes Pt's notified to check pharmacy. Joyce Marley sent Spoke with pt's and surgery planned for 12/03/[address] Edwards. Pt having bouts of nausea and requests a prescription gets sent to his pharmacy- [facility] in [place]. Please advise. Thanks, Joyce Marley Pt called looking to schedule surgery quickly due to pt discomfort. stated that Pt is to have ESWL scheduled. Tahira garnica MA documented in this encounter [facility] 11-13-2023 Telephone encounter Note sent [facility] 11-13-2023 Telephone encounter Note Spoke with pt's and surgery planned for 12/03/[address] Edwards. Pt having bouts of nausea and requests a prescription gets sent to his pharmacy- [facility] in [place]. Please advise. ThanksJoyce [facility] 11-13-2023 Telephone encounter Note Pt called looking to schedule surgery quickly due to pt discomfort. stated that Pt is to have ESWL scheduled. Tahira garnica MA [facility] 11-08-2023 Note HNO ID: [id number] Author: PATRICE EDWARDS JR, MD Service: ? Author Type: Physician Type: Progress Notes Filed: 11/08/2023 11:51 Note Text: ESTABLISHED PATIENT OFFICE VISIT HPI Bonnie Martinez is a 67 year old male who presents refer for elevated psa, ho kidney stones and flank pain. No fever. No uti. Psa now 7.55 and last year was 6.61. co L flank pain. Renal us showed non obstructing stones. 11/08/23 - ct and kub reviewed. 12 and 6 mm R renal calculus. 7 and 8 mm L renal calculus. Kub+. HU's 700's. Options discussed. Does not want to do laser litho or pcnl. Open to mulitple ESWL's LAB: Creatinine Date Value Ref Range Status 10/02/2023 1.25 (H) 0.73 - 1.22 mg/dL Final PSA (ng/mL) Date Value 10/02/2023 7.55 11/21/2022 6.61 PSA Screening (ng/mL) Date Value 11/06/2019 4.56 Glucose, Urine (no units) Date Value 10/02/2023 Negative Bilirubin, Urine (no units) Date Value 10/02/2023 Negative Ketones, Urine (no units) Date Value 10/02/2023 Negative Specific [place], Ur (no units) Date Value 10/02/2023 1.013 Hemoglobin/Blood,Ur (no units) Date Value 10/02/2023 Negative pH, Urine (no units) Date Value 10/02/2023 6.0 Protein, Urine (no units) Date Value 10/02/2023 Negative Nitrites (no units) Date Value 10/02/2023 Negative WBC, Urine (no units) Date Value 10/02/2023 0-5 /HPF MEDICATIONS: tamsulosin (FLOMAX) 0.4 mg Take 1 capsule by mouth once daily. 30 minutes after the same meal each day. (Patient not taking: Reported on 11/08/2023) REVIEW OF SYSTEMS Review of Systems Constitutional: Negative. Respiratory: Negative. Cardiovascular: Negative. Gastrointestinal: Negative. Genitourinary: Negative. Skin: Negative. Neurological: Negative. Psychiatric/Behavioral: Negative. 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 PMH - PAST MEDICAL HISTORY OF DDD, PMH - PAST MEDICAL HISTORY OF 08/2008 fracture clavicel, ribs and right ankle Unspecified essential hypertension FAMILY HISTORY Problem Relation Age of Onset Arthritis Mother other (Larynx cancer) Father other (hyperlipidemia) Father SOCIAL HISTORY Social History Tobacco Use Smoking status: Never Smokeless tobacco: Never Vaping Use Vaping status: Never Used Substance Use Topics Alcohol use: Yes Comment: rarely Drug use: Never PHYSICAL EXAMINATION General appearance: Well appearing, alert, in no acute distress, and well-hydrated, well nourished Skin: Skin color, texture, turgor normal, no suspicious rashes or lesions Respiratory:+ effort Cardiovascular: Not examined GI: Normal abdominal exam, Abdomen soft, non-tender. No masses, organomegaly Musculoskeletal: Negative Neuro: Negative Genitourinary: not examined Impression: (N20.0) Kidney stones [N20.0] (primary encounter diagnosis) Plan: right ESWL All r/b/a of surgery discussed, infection, bleeding, damage to nearby structures, repeat surgery, stent placement, steinstrasse, kidney damage, surgery failure, , heart attack, stroke, deep vein thrombosis, pulmonary embolus. Patient verbalized understanding and agrees to proceed. Patrice Edwards Jr, MD 11/08/2023 [facility] 11-08-2023 History of Present illness Narrative ESTABLISHED PATIENT OFFICE VISIT HPI Bonnie Martinez is a 67 year old male who presents refer for elevated psa, ho kidney stones and flank pain. No fever. No uti. Psa now 7.55 and last year was 6.61. co L flank pain. Renal us showed non obstructing stones. 11/08/23 - ct and kub reviewed. 12 and 6 mm R renal calculus. 7 and 8 mm L renal calculus. Kub+. HU's 700's. Options discussed. Does not want to do laser litho or pcnl. Open to mulitple ESWL's LAB: Creatinine Date Value Ref Range Status 10/02/2023 1.25 (H) 0.73 - 1.22 mg/dL Final PSA (ng/mL) Date Value 10/02/2023 7.55 11/21/2022 6.61 PSA Screening (ng/mL) Date Value 11/06/2019 4.56 Glucose, Urine (no units) Date Value 10/02/2023 Negative Bilirubin, Urine (no units) Date Value 10/02/2023 Negative Ketones, Urine (no units) Date Value 10/02/2023 Negative Specific [place], Ur (no units) Date Value 10/02/2023 1.013 Hemoglobin/Blood,Ur (no units) Date Value 10/02/2023 Negative pH, Urine (no units) Date Value 10/02/2023 6.0 Protein, Urine (no units) Date Value 10/02/2023 Negative Nitrites (no units) Date Value 10/02/2023 Negative WBC, Urine (no units) Date Value 10/02/2023 0-5 /HPF MEDICATIONS: tamsulosin (FLOMAX) 0.4 mg Take 1 capsule by mouth once daily. 30 minutes after the same meal each day. (Patient not taking: Reported on 11/08/2023) REVIEW OF SYSTEMS Review of Systems Constitutional: Negative. Respiratory: Negative. Cardiovascular: Negative. Gastrointestinal: Negative. Genitourinary: Negative. Skin: Negative. Neurological: Negative. Psychiatric/Behavioral: Negative. 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 PMH - PAST MEDICAL HISTORY OF DDD, PMH - PAST MEDICAL HISTORY OF 08/2008 fracture clavicel, ribs and right ankle Unspecified essential hypertension FAMILY HISTORY Problem Relation Age of Onset Arthritis Mother other (Larynx cancer) Father other (hyperlipidemia) Father SOCIAL HISTORY Social History Tobacco Use Smoking status: Never Smokeless tobacco: Never Vaping Use Vaping status: Never Used Substance Use Topics Alcohol use: Yes Comment: rarely Drug use: Never PHYSICAL EXAMINATION General appearance: Well appearing, alert, in no acute distress, and well-hydrated, well nourished Skin: Skin color, texture, turgor normal, no suspicious rashes or lesions Respiratory:+ effort Cardiovascular: Not examined GI: Normal abdominal exam, Abdomen soft, non-tender. No masses, organomegaly Musculoskeletal: Negative Neuro: Negative Genitourinary: not examined Impression: (N20.0) Kidney stones [N20.0] (primary encounter diagnosis) Plan: right ESWL All r/b/a of surgery discussed, infection, bleeding, damage to nearby structures, repeat surgery, stent placement, steinstrasse, kidney damage, surgery failure, , heart attack, stroke, deep vein thrombosis, pulmonary embolus. Patient verbalized understanding and agrees to proceed. Patrice Edwards Jr, MD 11/08/2023 documented in this encounter [facility] 11-01-2023 Note HNO ID: [id number] Author: IDA CARLTON MD Service: ? Author Type: Physician Type: Progress Notes Filed: 11/01/2023 13:31 Note Text: Orthopaedic Office Note: November 01, 2023 11:38 AM Bonnie Martinez 67 year old History: Bonnie Martinez is a 67 y/o male patient presenting with a chief complain of bilateral hip pain. Pain is worse on the left side. Pain started 25 years ago and getting worse over time. Pain is located at the groin and lateral side of the hip in both sides. Pain is described as constant and achy. He has not tried any pain medication, PT, or injections. 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 He is neurovascular intact. Subjective: See above Updated ROS: No changes Updated Exam: Left hip exam: Normal overlying skin. No visible swelling or erythema. No inguinal lymphadenopathy. + Stinchfield sign. + pain with impingement testing. + pain with MILLIE and FADIR testing. + tenderness to palpation over anterior and lateral side of hip. Range of motion is 90 degrees of flexion. 5/5 iliopsoas, abductors, quadriceps, hamstrings, tibialis anterior, gastrocsoleus, extensor hallucis longus. Sensation intact to light touch throughout the tibial, sural, saphenous, deep and superficial peroneal nerve distributions. +2 dorsalis pedis and posterior tibial pulses. Right hip exam: Normal overlying skin. No visible swelling or erythema. No inguinal lymphadenopathy. + Stinchfield sign. + pain with impingement testing. + pain with MILLIE and FADIR testing. + tenderness to palpation over anterior and lateral side of hip. Range of motion is 90 degrees of flexion. 5/5 iliopsoas, abductors, quadriceps, hamstrings, tibialis anterior, gastrocsoleus, extensor hallucis longus. Sensation intact to light touch throughout the tibial, sural, saphenous, deep and superficial peroneal nerve distributions. +2 dorsalis pedis and posterior tibial pulses. Updated Imaging: X-rays from 09/12/23 were reviewed : Mild degenerative changes at the hips with no acute fractures Assessment and Plan: - X-rays were reviewed with the patient - At this point, given his moderate OA and symptoms, conservative treatment was recommended - PT sessions were recommended - If symptoms get worse, patient was advised to return to clinic or consider CSIs I spent a total of 20 minutes on the date of the service which included [id number] patient care, performing a medically appropriate examination, counseling and educating the patient/family/caregiver, independently interpreting results (not separately reported), and communicating results to the patient/family/caregiver. Ida Carlton MD Orthopaedic Surgery [facility] 11-01-2023 History of Present illness Narrative Orthopaedic Office Note: November 01, 2023 11:38 AM Bonnie Martinez 67 year old History: Bonnie Martinez is a 67 y/o male patient presenting with a chief complain of bilateral hip pain. Pain is worse on the left side. Pain started 25 years ago and getting worse over time. Pain is located at the groin and lateral side of the hip in both sides. Pain is described as constant and achy. He has not tried any pain medication, PT, or injections. 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 He is neurovascular intact. Subjective: See above Updated ROS: No changes Updated Exam: Left hip exam: Normal overlying skin. No visible swelling or erythema. No inguinal lymphadenopathy. + Stinchfield sign. + pain with impingement testing. + pain with MILLIE and FADIR testing. + tenderness to palpation over anterior and lateral side of hip. Range of motion is 90 degrees of flexion. 5/5 iliopsoas, abductors, quadriceps, hamstrings, tibialis anterior, gastrocsoleus, extensor hallucis longus. Sensation intact to light touch throughout the tibial, sural, saphenous, deep and superficial peroneal nerve distributions. +2 dorsalis pedis and posterior tibial pulses. Right hip exam: Normal overlying skin. No visible swelling or erythema. No inguinal lymphadenopathy. + Stinchfield sign. + pain with impingement testing. + pain with MILLIE and FADIR testing. + tenderness to palpation over anterior and lateral side of hip. Range of motion is 90 degrees of flexion. 5/5 iliopsoas, abductors, quadriceps, hamstrings, tibialis anterior, gastrocsoleus, extensor hallucis longus. Sensation intact to light touch throughout the tibial, sural, saphenous, deep and superficial peroneal nerve distributions. +2 dorsalis pedis and posterior tibial pulses. Updated Imaging: X-rays from 09/12/23 were reviewed : Mild degenerative changes at the hips with no acute fractures Assessment and Plan: - X-rays were reviewed with the patient - At this point, given his moderate OA and symptoms, conservative treatment was recommended - PT sessions were recommended - If symptoms get worse, patient was advised to return to clinic or consider CSIs I spent a total of 20 minutes on the date of the service which included [id number] patient care, performing a medically appropriate examination, counseling and educating the patient/family/caregiver, independently interpreting results (not separately reported), and communicating results to the patient/family/caregiver. Ida Carlton MD Orthopaedic Surgery documented in this encounter [facility] 10-30-2023 History of Present illness Narrative Radiology Service Progress Note PATIENT NAME: Bonnie Martinez DATE OF SERVICE: October 30, 2023 TIME: 1:55 PM PATIENT IDENTITY VERIFICATION COMPLETED USING TWO (2) IDENTIFIERS: Name and Date of confirmed by patient verbally. FALL SCREENING: Has the patient had 2 falls in the last year or 1 fall with injury or currently using an Ambulatory Assistive Device (Walker, Cane, Wheelchair, Crutches, etc.)? No PATIENT GENDER DATA: Male PATIENT RELEVANT IMPLANT DATA REVIEWED: Yes PATIENT PRESENTS WITH AN IMPLANTABLE OR ATTACHED SLAG PRODUCTION WORKER: No RADIOLOGY DEPARTMENT: CT; Exam(s) Completed: Flank Study PERIPHERAL IV DATA: Not applicable SIGNED BY: RT Trupti(Gold) October 30, 2023 1:55 PM documented in this encounter [facility] 10-30-2023 Note HNO ID: [id number] Author: MYRNA RAPP RT(Gold) Service: ? Author Type: Hat Sizer Type: Progress Notes Filed: 10/30/2023 13:55 Note Text: Radiology Service Progress Note PATIENT NAME: Bonnie Martinez DATE OF SERVICE: October 30, 2023 TIME: 1:55 PM PATIENT IDENTITY VERIFICATION COMPLETED USING TWO (2) IDENTIFIERS: Name and Date of confirmed by patient verbally. FALL SCREENING: Has the patient had 2 falls in the last year or 1 fall with injury or currently using an Ambulatory Assistive Device (Walker, Cane, Wheelchair, Crutches, etc.)? No PATIENT GENDER DATA: Male PATIENT RELEVANT IMPLANT DATA REVIEWED: Yes PATIENT PRESENTS WITH AN IMPLANTABLE OR ATTACHED SLAG PRODUCTION WORKER: No RADIOLOGY DEPARTMENT: CT; Exam(s) Completed: Flank Study PERIPHERAL IV DATA: Not applicable SIGNED BY: RT Trupti(R) October 30, 2023 1:55 PM [facility] 10-30-2023 History of Present illness Narrative Radiology Service Progress Note PATIENT NAME: Bonnie Martinez DATE OF SERVICE: October 30, 2023 TIME: 11:24 AM PATIENT IDENTITY VERIFICATION COMPLETED USING TWO (2) IDENTIFIERS: Name and Date of confirmed by patient verbally. FALL SCREENING: Has the patient had 2 falls in the last year or 1 fall with injury or currently using an Ambulatory Assistive Device (Walker, Cane, Wheelchair, Crutches, etc.)? No PATIENT GENDER DATA: Male PATIENT RELEVANT IMPLANT DATA REVIEWED: Yes PATIENT PRESENTS WITH AN IMPLANTABLE OR ATTACHED SLAG PRODUCTION WORKER: No RADIOLOGY DEPARTMENT: General X-ray: Exam(s) Completed: Abdomen X-Ray: Abdomen PERIPHERAL IV DATA: Not applicable SIGNED BY: RT Huyen(R) October 30, 2023 11:24 AM documented in this encounter [facility] 10-30-2023 Note HNO ID: [id number] Author: JONNIE JORDAN RT(Gold) Service: ? Author Type: Hat Sizer Type: Progress Notes Filed: 10/30/2023 11:35 Note Text: Radiology Service Progress Note PATIENT NAME: Bonnie Martinez DATE OF SERVICE: October 30, 2023 TIME: 11:24 AM PATIENT IDENTITY VERIFICATION COMPLETED USING TWO (2) IDENTIFIERS: Name and Date of confirmed by patient verbally. FALL SCREENING: Has the patient had 2 falls in the last year or 1 fall with injury or currently using an Ambulatory Assistive Device (Walker, Cane, Wheelchair, Crutches, etc.)? No PATIENT GENDER DATA: Male PATIENT RELEVANT IMPLANT DATA REVIEWED: Yes PATIENT PRESENTS WITH AN IMPLANTABLE OR ATTACHED SLAG PRODUCTION WORKER: No RADIOLOGY DEPARTMENT: General X-ray: Exam(s) Completed: Abdomen X-Ray: Abdomen PERIPHERAL IV DATA: Not applicable SIGNED BY: RT Huyen(R) October 30, 2023 11:24 AM [facility] 10-26-2023 Note HNO ID: [id number] Author: PATRICE EDWARDS JR, MD Service: ? Author Type: Physician Type: Progress Notes Filed: 10/26/2023 08:11 Note Text: NEW PATIENT HISTORY AND PHYSICAL EXAM PATIENT INFO: Bonnie Martinez 67 year old REFERRING PROVIDER: SUBHA CAMACHO PCP: Lilian Chowdhury MD HPI Bonnie Martinez is a 67 year old male refer for elevated psa, ho kidney stones and flank pain. No fever. No uti. Psa now 7.55 and last year was 6.61. co L flank pain. Renal us showed non obstructing stones. Review of Systems Constitutional: Negative. Respiratory: Negative. Cardiovascular: Negative. Gastrointestinal: Negative. Genitourinary: Negative. Skin: Negative. Neurological: Negative. Psychiatric/Behavioral: Negative. LAB: Creatinine Date Value Ref Range Status 10/02/2023 1.25 (H) 0.73 - 1.22 mg/dL Final PSA (ng/mL) Date Value 10/02/2023 7.55 11/21/2022 6.61 PSA Screening (ng/mL) Date Value 11/06/2019 4.56 Glucose, Urine (no units) Date Value 10/02/2023 Negative Bilirubin, Urine (no units) Date Value 10/02/2023 Negative Ketones, Urine (no units) Date Value 10/02/2023 Negative Specific [place], Ur (no units) Date Value 10/02/2023 1.013 Hemoglobin/Blood,Ur (no units) Date Value 10/02/2023 Negative pH, Urine (no units) Date Value 10/02/2023 6.0 Protein, Urine (no units) Date Value 10/02/2023 Negative Nitrites (no units) Date Value 10/02/2023 Negative WBC, Urine (no units) Date Value 10/02/2023 0-5 /HPF MEDICATIONS: iv contrast (will be provided with radiology test) MRI Prostate Inject, intravenously, once for 1 dose. No IV access, insert saline lock prior to the beginning of sedation, infusion, injection of imaging exam. Discontinue saline lock post exam. If Pt. has a central line or IVAD, may access for administration according to line specific nursing protocol. Once exam is complete flush line and de-access according to line specific nursing protocol in the MR contrast administration guidelines link. tamsulosin (FLOMAX) 0.4 mg Take 1 capsule by mouth once daily. 30 minutes after the same meal each day. HISTORIES PAST MEDICAL HISTORY No date: Allergic rhinitis, cause unspecified Comment: Allergic rhinitis No date: Hearing loss Comment: high frequency loss since child No date: PMH - PAST MEDICAL HISTORY OF Comment: DDD, 08/2008: PMH - PAST MEDICAL HISTORY OF Comment: fracture clavicel, ribs and right ankle No date: Unspecified essential hypertension FAMILY HISTORY Problem Relation Age of Onset Arthritis Mother other (Larynx cancer) Father other (hyperlipidemia) Father SOCIAL HISTORY Social History Tobacco Use Smoking status: Never Smokeless tobacco: Never Vaping Use Vaping status: Never Used Substance Use Topics Alcohol use: Yes Comment: rarely Drug use: Never PHYSICAL EXAMINATION BP 140/82 Pulse 77 Ht 172.7 cm (5' 8 ) SpO2 98% BMI 31.17 kg/m? General appearance: Well appearing, alert, in no acute distress, and well-hydrated, well nourished Skin: Skin color, texture, turgor normal, no suspicious rashes or lesions Respiratory:+ effort Cardiovascular: Not examined GI: Normal abdominal exam, Abdomen soft, non-tender. No masses, organomegaly Musculoskeletal: normal ROM Neuro: No gross neurologic defecits Genitourinary: not examined ASSESSMENT: (N20.0) Kidney stone (primary encounter diagnosis) (R97.20) Elevated PSA (R10.9) Flank pain (Z03.89) Encounter for observation for other suspected diseases and conditions ruled out PLAN: Ct flank and kub Fu after Mri prostate Patrice Edwards Jr, MD [facility] 10-26-2023 History of Present illness Narrative NEW PATIENT HISTORY AND PHYSICAL EXAM PATIENT INFO: Bonnie Martinez 67 year old REFERRING PROVIDER: SUBHA CAMACHO PCP: Lilian Chowdhury MD HPI Bonnie Martinez is a 67 year old male refer for elevated psa, ho kidney stones and flank pain. No fever. No uti. Psa now 7.55 and last year was 6.61. co L flank pain. Renal us showed non obstructing stones. Review of Systems Constitutional: Negative. Respiratory: Negative. Cardiovascular: Negative. Gastrointestinal: Negative. Genitourinary: Negative. Skin: Negative. Neurological: Negative. Psychiatric/Behavioral: Negative. LAB: Creatinine Date Value Ref Range Status 10/02/2023 1.25 (H) 0.73 - 1.22 mg/dL Final PSA (ng/mL) Date Value 10/02/2023 7.55 11/21/2022 6.61 PSA Screening (ng/mL) Date Value 11/06/2019 4.56 Glucose, Urine (no units) Date Value 10/02/2023 Negative Bilirubin, Urine (no units) Date Value 10/02/2023 Negative Ketones, Urine (no units) Date Value 10/02/2023 Negative Specific [place], Ur (no units) Date Value 10/02/2023 1.013 Hemoglobin/Blood,Ur (no units) Date Value 10/02/2023 Negative pH, Urine (no units) Date Value 10/02/2023 6.0 Protein, Urine (no units) Date Value 10/02/2023 Negative Nitrites (no units) Date Value 10/02/2023 Negative WBC, Urine (no units) Date Value 10/02/2023 0-5 /HPF MEDICATIONS: iv contrast (will be provided with radiology test) MRI Prostate Inject, intravenously, once for 1 dose. No IV access, insert saline lock prior to the beginning of sedation, infusion, injection of imaging exam. Discontinue saline lock post exam. If Pt. has a central line or IVAD, may access for administration according to line specific nursing protocol. Once exam is complete flush line and de-access according to line specific nursing protocol in the MR contrast administration guidelines link. tamsulosin (FLOMAX) 0.4 mg Take 1 capsule by mouth once daily. 30 minutes after the same meal each day. HISTORIES PAST MEDICAL HISTORY No date: Allergic rhinitis, cause unspecified Comment: Allergic rhinitis No date: Hearing loss Comment: high frequency loss since child No date: PMH - PAST MEDICAL HISTORY OF Comment: DDD, 08/2008: PMH - PAST MEDICAL HISTORY OF Comment: fracture clavicel, ribs and right ankle No date: Unspecified essential hypertension FAMILY HISTORY Problem Relation Age of Onset Arthritis Mother other (Larynx cancer) Father other (hyperlipidemia) Father SOCIAL HISTORY Social History Tobacco Use Smoking status: Never Smokeless tobacco: Never Vaping Use Vaping status: Never Used Substance Use Topics Alcohol use: Yes Comment: rarely Drug use: Never PHYSICAL EXAMINATION BP 140/82 Pulse 77 Ht 172.7 cm (5' 8 ) SpO2 98% BMI 31.17 kg/m General appearance: Well appearing, alert, in no acute distress, and well-hydrated, well nourished Skin: Skin color, texture, turgor normal, no suspicious rashes or lesions Respiratory:+ effort Cardiovascular: Not examined GI: Normal abdominal exam, Abdomen soft, non-tender. No masses, organomegaly Musculoskeletal: normal ROM Neuro: No gross neurologic defecits Genitourinary: not examined ASSESSMENT: (N20.0) Kidney stone (primary encounter diagnosis) (R97.20) Elevated PSA (R10.9) Flank pain (Z03.89) Encounter for observation for other suspected diseases and conditions ruled out PLAN: Ct flank and kub Fu after Mri prostate Patrice Edwards Jr, MD documented in this encounter [facility] 10-18-2023 Telephone encounter Note Patient returned call and given provider's message below and patient verbalized understanding. Edouard Vivas RN [facility] 10-18-2023 Miscellaneous Notes Patient returned call and given provider's message below and patient verbalized understanding. Edouard Vivas RN TC to pt. LM to call office, ask for triage nurse to get results. Jesse Gonzalez LPN Can you please call the patient and let him know that I reviewed his ultrasound results. Ultrasound shows bilateral kidney stones, no hydronephrosis noted. There was some mild residual urinary retention after voiding. I would recommend that he keep upcoming appointment with urology for further evaluation. Please let me know if he has any questions. Thank you. Justine Leary APRN.EUSEBIO documented in this encounter [facility] 10-18-2023 Telephone encounter Note TC to pt. LM to call office, ask for triage nurse to get results. Jesse Gonzalez LPN [facility] 10-18-2023 Telephone encounter Note See phone note Justine Leary APRN.CNP [facility] 10-18-2023 Miscellaneous Notes See phone note Justine Leary APRN.CNP See Arche[employer] message documented in this encounter [facility] 10-18-2023 Telephone encounter Note Can you please call the patient and let him know that I reviewed his ultrasound results. Ultrasound shows bilateral kidney stones, no hydronephrosis noted. There was some mild residual urinary retention after voiding. I would recommend that he keep upcoming appointment with urology for further evaluation. Please let me know if he has any questions. Thank you. Justine Leary APRN.CNP [facility] 10-18-2023 Telephone encounter Note See [employer] message [facility] 10-15-2023 History of Present illness Narrative Radiology Service Progress Note PATIENT NAME: Bonnie Martinez DATE OF SERVICE: October 15, 2023 TIME: 2:48 PM PATIENT IDENTITY VERIFICATION COMPLETED USING TWO (2) IDENTIFIERS: Name and Date of confirmed by patient verbally. FALL SCREENING: Has the patient had 2 falls in the last year or 1 fall with injury or currently using an Ambulatory Assistive Device (Walker, Cane, Wheelchair, Crutches, etc.)? No PATIENT GENDER DATA: Male PATIENT RELEVANT IMPLANT DATA REVIEWED: Not Applicable PATIENT PRESENTS WITH AN IMPLANTABLE OR ATTACHED SLAG PRODUCTION WORKER: No RADIOLOGY DEPARTMENT: Ultrasound PERIPHERAL IV DATA: Not applicable SIGNED BY: Bel Huffman RDMS RVCordell October 15, 2023 2:48 PM documented in this encounter [facility] 10-15-2023 Note HNO ID: [id number] Author: BEL HUFFMAN RDMS Service: ? Author Type: Shipping Clerk Packing Type: Progress Notes Filed: 10/15/2023 14:49 Note Text: Radiology Service Progress Note PATIENT NAME: Bonnie Martinez DATE OF SERVICE: October 15, 2023 TIME: 2:48 PM PATIENT IDENTITY VERIFICATION COMPLETED USING TWO (2) IDENTIFIERS: Name and Date of confirmed by patient verbally. FALL SCREENING: Has the patient had 2 falls in the last year or 1 fall with injury or currently using an Ambulatory Assistive Device (Walker, Cane, Wheelchair, Crutches, etc.)? No PATIENT GENDER DATA: Male PATIENT RELEVANT IMPLANT DATA REVIEWED: Not Applicable PATIENT PRESENTS WITH AN IMPLANTABLE OR ATTACHED SLAG PRODUCTION WORKER: No RADIOLOGY DEPARTMENT: Ultrasound PERIPHERAL IV DATA: Not applicable SIGNED BY: Bel Huffman RDMS RVCrodell October 15, 2023 2:48 PM [facility] 10-03-2023 Telephone encounter Note Consult has been placed. Justine Leary APRN.CNP [facility] 10-03-2023 Miscellaneous Notes Consult has been placed. Justine Leary APRN.EUSEBIO Patient notified of results, verbalizes understanding of instructions. Pt wants a consult to Urology. Please place. Jesse Gonzalez LPN Can you please call the patient and let him know that I reviewed his lab and urine results. Urine microanalysis was normal, culture is still pending. PSA has increased to 7.55 but the free PSA percentage was 17, this correlates with a possible 30% risk of malignancy, however we normally recommend a consult with urology with a percentage less than 11. We can either continue to monitor the PSA through labs or he is welcome to have a consult with urology for further evaluation. Once I receive his ultrasound results I will be in touch with him. Please let me know if he has any questions. Thank you. Justine Leary APRN.EUSEBIO documented in this encounter [facility] 10-03-2023 Telephone encounter Note Patient notified of results, verbalizes understanding of instructions. Pt wants a consult to Urology. Please place. Jesse Gonzalez LPN [facility] 10-03-2023 Telephone encounter Note Can you please call the patient and let him know that I reviewed his lab and urine results. Urine microanalysis was normal, culture is still pending. PSA has increased to 7.55 but the free PSA percentage was 17, this correlates with a possible 30% risk of malignancy, however we normally recommend a consult with urology with a percentage less than 11. We can either continue to monitor the PSA through labs or he is welcome to have a consult with urology for further evaluation. Once I receive his ultrasound results I will be in touch with him. Please let me know if he has any questions. Thank you. Justine Leary APRN.EUSEBIO [facility] 10-02-2023 Instructions Justine Leary APRN.CNP - 10/02/2023 10:08 AM EDT Get labs and ultrasound completed Urine will be sent out for further testing Stay well hydrated Worsening symptoms contact the office. Follow up pending test results or sooner as needed. documented in this encounter [facility] 10-02-2023 History of Present illness Narrative This is a 67 year old male who presents today with: Patient presents with: Acute Visit: Blood in urine HISTORY OF PRESENT ILLNESS: Bonnie Martinez is a 67 year old male. Patient presents with: Acute Visit: Blood in urine Here in the office for blood in the urine. Started about 6 months ago, randomly in the morning noticed. Noticed brown colored urine last and again Sunday. Had some low back pain the week prior which seemed to resolve. No history of kidney stones that he is aware of. Refers that night had some difficulty getting urine stream started but seemed to resolve by Sunday. No fever or chills. History of Elevated PSA in the past. PAST MEDICAL HISTORY: PAST MEDICAL HISTORY No date: Allergic rhinitis, cause unspecified Comment: Allergic rhinitis No date: Hearing loss Comment: high frequency loss since child No date: PMH - PAST MEDICAL HISTORY OF Comment: DDD, 08/2008: PMH - PAST MEDICAL HISTORY OF Comment: fracture clavicel, ribs and right ankle No date: Unspecified essential hypertension PAST SURGICAL HISTORY No date: PAST SURGICAL HISTORY OF Comment: pilondal cyst No date: PAST SURGICAL HISTORY OF Comment: right 4th and 5th injury-[facility] 1984: PAST SURGICAL HISTORY OF; Right Comment: right 4th and 5th fingers repaired following injury ALLERGIES Erythromycin Base MEDICATIONS No current outpatient medications on file. No current facility-administered medications for this visit. FAMILY HISTORY Problem Relation Age of Onset Arthritis Mother other (Larynx cancer) Father other (hyperlipidemia) Father Social History Tobacco Use Smoking status: Never Smokeless tobacco: Never Vaping Use Vaping Use: Never used Substance Use Topics Alcohol use: Yes Comment: rarely Drug use: Never REVIEW OF SYSTEMS GENERAL: No weight loss, malaise or fevers/chills HEENT: Negative for frequent or significant headaches, No changes in hearing or vision. NECK: Negative for lumps, goiter, pain and significant neck swelling RESPIRATORY: Negative for cough, hemoptysis, wheezing, dyspnea or shortness of breath CARDIOVASCULAR: Negative for chest pain, leg swelling, orthopnea, or palpitations GI: No nausea, vomiting, or diarrhea/constipation. No hematochezia/melena. No heartburn or reflux symptoms. : + Dark Urine/Flank Pain MUSCULOSKELETAL: Negative for joint pain or swelling. SKIN: Negative for lesions, rash, and itching ENDOCRINE: Negative for cold or heat intolerance, polyuria, polydipsia and goiter NEURO: No history of headaches, syncope, paralysis, seizures or tremors MOOD: Negative for depression, anxiety, or suicidal ideation. EXAM: BP 136/90 Pulse 77 Resp 16 Wt 93 kg (205 lb 0.4 oz) SpO2 97% BMI 31.62 kg/m PHYSICAL EXAM: General Appearance: Well appearing, alert, in no acute distress, well-hydrated, well nourished. Skin: Skin color, texture, turgor normal, no suspicious rashes or lesions. Head: Normocephalic, no masses, lesions, tenderness or abnormalities. Eyes: Anicteric sclera. Extraocular movements are intact. Lungs: Lungs clear to auscultation. No wheezing, rhonchi, rales. Heart: RRR without murmur, gallop, or rubs. No ectopy. Abdomen: Normal abdominal exam, Abdomen soft, non-tender. Bowel sounds normal. No masses, organomegaly. Extremities: No deformities, edema, skin discoloration, clubbing or cyanosis. Good capillary refill. Peripheral Pulses: Normal, Capillary refill <2secs, strong peripheral pulses, Pulses palpable. Neurologic: Gait normal. Sensation grossly intact. UA: + Trace blood ASSESSMENT/PLAN: 1. History of flank pain - ICD9: V13.89, ICD10: Z87.898 (primary diagnosis) - Get labs and US completed - Urine will be sent out for Micro and culture. - Instructed to stay well hydrated - Contact the office with any worsening symptoms. - US KIDNEY/BLADDER - COMPREHENSIVE METABOLIC PANEL - COMPLETE BLOOD COUNT AND DIFFERENTIAL - URINALYSIS, WITH MICROSCOPIC - URINE CULTURE 2. Dark urine - ICD9: 791.9, ICD10: R82.998 - Same plan as #1. 3. Elevated PSA - ICD9: 790.93, ICD10: R97.20 - PROSTATE SPECIFIC ANTIGEN, FREE Follow-up pending test results or sooner as needed. Discussed treatment plan and patient voices understanding. Patient's questions answered appropriately. Medications and potential side effects were discussed and patient voices understanding. Justine Leary APRN.EUSEBIO This note was partially generated using [employer] voice recognition system. Note was reviewed for accuracy. There may be minor misspellings or grammar miscues with [employer] voice recognition. documented in this encounter [facility] 10-02-2023 Note HNO ID: [id number] Author: JUSTINE LEARY APRN.EUSEBIO Service: ? Author Type: Nurse Practitioner Type: Progress Notes Filed: 10/02/2023 11:46 Note Text: This is a 67 year old male who presents today with: Patient presents with: Acute Visit: Blood in urine HISTORY OF PRESENT ILLNESS: Bonnie Martinez is a 67 year old male. Patient presents with: Acute Visit: Blood in urine Here in the office for blood in the urine. Started about 6 months ago, randomly in the morning noticed. Noticed brown colored urine last and again Sunday. Had some low back pain the week prior which seemed to resolve. No history of kidney stones that he is aware of. Refers that night had some difficulty getting urine stream started but seemed to resolve by Sunday. No fever or chills. History of Elevated PSA in the past. 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 No current facility-administered medications for this visit. FAMILY HISTORY Problem Relation Age of Onset Arthritis Mother other (Larynx cancer) Father other (hyperlipidemia) Father Social History Tobacco Use Smoking status: Never Smokeless tobacco: Never Vaping Use Vaping Use: Never used Substance Use Topics Alcohol use: Yes Comment: rarely Drug use: Never REVIEW OF SYSTEMS GENERAL: No weight loss, malaise or fevers/chills HEENT: Negative for frequent or significant headaches, No changes in hearing or vision. NECK: Negative for lumps, goiter, pain and significant neck swelling RESPIRATORY: Negative for cough, hemoptysis, wheezing, dyspnea or shortness of breath CARDIOVASCULAR: Negative for chest pain, leg swelling, orthopnea, or palpitations GI: No nausea, vomiting, or diarrhea/constipation. No hematochezia/melena. No heartburn or reflux symptoms. : + Dark Urine/Flank Pain MUSCULOSKELETAL: Negative for joint pain or swelling. SKIN: Negative for lesions, rash, and itching ENDOCRINE: Negative for cold or heat intolerance, polyuria, polydipsia and goiter NEURO: No history of headaches, syncope, paralysis, seizures or tremors MOOD: Negative for depression, anxiety, or suicidal ideation. EXAM: BP 136/90 Pulse 77 Resp 16 Wt 93 kg (205 lb 0.4 oz) SpO2 97% BMI 31.62 kg/m? PHYSICAL EXAM: General Appearance: Well appearing, alert, in no acute distress, well-hydrated, well nourished. Skin: Skin color, texture, turgor normal, no suspicious rashes or lesions. Head: Normocephalic, no masses, lesions, tenderness or abnormalities. Eyes: Anicteric sclera. Extraocular movements are intact. Lungs: Lungs clear to auscultation. No wheezing, rhonchi, rales. Heart: RRR without murmur, gallop, or rubs. No ectopy. Abdomen: Normal abdominal exam, Abdomen soft, non-tender. Bowel sounds normal. No masses, organomegaly. Extremities: No deformities, edema, skin discoloration, clubbing or cyanosis. Good capillary refill. Peripheral Pulses: Normal, Capillary refill <2secs, strong peripheral pulses, Pulses palpable. Neurologic: Gait normal. Sensation grossly intact. UA: + Trace blood ASSESSMENT/PLAN: 1. History of flank pain - ICD9: V13.89, ICD10: Z87.898 (primary diagnosis) - Get labs and US completed - Urine will be sent out for Micro and culture. - Instructed to stay well hydrated - Contact the office with any worsening symptoms. - US KIDNEY/BLADDER - COMPREHENSIVE METABOLIC PANEL - COMPLETE BLOOD COUNT AND DIFFERENTIAL - URINALYSIS, WITH MICROSCOPIC - URINE CULTURE 2. Dark urine - ICD9: 791.9, ICD10: R82.998 - Same plan as #1. 3. Elevated PSA - ICD9: 790.93, ICD10: R97.20 - PROSTATE SPECIFIC ANTIGEN, FREE Follow-up pending test results or sooner as needed. Discussed treatment plan and patient voices understanding. Patient's questions answered appropriately. Medications and potential side effects were discussed and patient voices understanding. Justine Leary APRN.CROP FARM HELPER This note was partially generated using Vormetric voice recognition system. Note was reviewed for accuracy. There may be minor misspellings or grammar miscues with Vorm[employer] voice recognition. [facility] 09-17-2023 Telephone encounter Note Patient notified of results, verbalizes understanding of instructions. Jesse Gonzalez LPN [facility] 09-17-2023 Miscellaneous Notes Patient notified of results, verbalizes understanding of instructions. Jesse Gonzalez LPN Can you please call the patient and let him know that I reviewed his x-ray results. IMPRESSION IMPRESSION: Mild degenerative changes at the hips with no acute fractures I would recommend that he continue supportive care at home, may use NSAIDs as needed for pain/inflammation. He may consider a once daily anti-inflammatory such as meloxicam. If pain does not improve I would recommend a consult with orthopedics. Please let me know if he has any questions. Thank you. Justine Leary APRN.EUSEBIO documented in this encounter [facility] 09-17-2023 Telephone encounter Note Can you please call the patient and let him know that I reviewed his x-ray results. IMPRESSION IMPRESSION: Mild degenerative changes at the hips with no acute fractures I would recommend that he continue supportive care at home, may use NSAIDs as needed for pain/inflammation. He may consider a once daily anti-inflammatory such as meloxicam. If pain does not improve I would recommend a consult with orthopedics. Please let me know if he has any questions. Thank you. Justine Leary APRN.EUSEBIO [facility] 09-14-2023 Telephone encounter Note Patient notified of results, verbalizes understanding of instructions. Jesse Gonzalez LPN [facility] 09-14-2023 Miscellaneous Notes Patient notified of results, verbalizes understanding of instructions. Jesse Gonzalez LPN Can you please call the patient and let him know that I reviewed his knee x-ray results. X-ray showed no fractures, there was bilateral anterior tibial tuberosity enthesophytes, this is consistent with Tri slaughters disease. This is usually seen with children but can affect adults as well. We treat this with RICE therapy, rest, ice, compression, elevation. NSAIDs are used to reduce inflammation, he may use [id number] or consider taking a once a day such as meloxicam. Physical therapy may be helpful to work on leg muscles. If no improvement I recommend a consult with orthopedics. Please let me know what he prefers regarding treatment. Thank you. Hip xray results are still pending Justine Leary APRN.CNP documented in this encounter [facility] 09-14-2023 Telephone encounter Note Can you please call the patient and let him know that I reviewed his knee x-ray results. X-ray showed no fractures, there was bilateral anterior tibial tuberosity enthesophytes, this is consistent with Tri slaughters disease. This is usually seen with children but can affect adults as well. We treat this with RICE therapy, rest, ice, compression, elevation. NSAIDs are used to reduce inflammation, he may use [id number] or consider taking a once a day such as meloxicam. Physical therapy may be helpful to work on leg muscles. If no improvement I recommend a consult with orthopedics. Please let me know what he prefers regarding treatment. Thank you. Hip xray results are still pending Justine Leary APRN.CNP [facility] 09-12-2023 History of Present illness Narrative Radiology Service Progress Note PATIENT NAME: Bonnie Martinez DATE OF SERVICE: September 12, 2023 TIME: 1:35 PM PATIENT IDENTITY VERIFICATION COMPLETED USING TWO (2) IDENTIFIERS: Name and Date of confirmed by patient verbally. FALL SCREENING: Has the patient had 2 falls in the last year or 1 fall with injury or currently using an Ambulatory Assistive Device (Walker, Cane, Wheelchair, Crutches, etc.)? No PATIENT GENDER DATA: Male PATIENT RELEVANT IMPLANT DATA REVIEWED: Yes PATIENT PRESENTS WITH AN IMPLANTABLE OR ATTACHED SLAG PRODUCTION WORKER: No RADIOLOGY DEPARTMENT: General X-ray: Exam(s) Completed: Pelvis X-Ray: Pelvis with Hip Bilateral Lower Extremity X-Ray(s): Knee, AP / Lat / Tunne / Merchant Bilateral and Wt. Bearing PERIPHERAL IV DATA: Not applicable SIGNED BY: RT Araseli(R) September 12, 2023 1:35 PM documented in this encounter [facility] 09-12-2023 Note HNO ID: [id number] Author: HELEN GARDNER RT(R) Service: Radiology Author Type: Technologist Type: Progress Notes Filed: 09/12/2023 13:56 Note Text: Radiology Service Progress Note PATIENT NAME: Bonnie Martinez DATE OF SERVICE: September 12, 2023 TIME: 1:35 PM PATIENT IDENTITY VERIFICATION COMPLETED USING TWO (2) IDENTIFIERS: Name and Date of confirmed by patient verbally. FALL SCREENING: Has the patient had 2 falls in the last year or 1 fall with injury or currently using an Ambulatory Assistive Device (Walker, Cane, Wheelchair, Crutches, etc.)? No PATIENT GENDER DATA: Male PATIENT RELEVANT IMPLANT DATA REVIEWED: Yes PATIENT PRESENTS WITH AN IMPLANTABLE OR ATTACHED SLAG PRODUCTION WORKER: No RADIOLOGY DEPARTMENT: General X-ray: Exam(s) Completed: Pelvis X-Ray: Pelvis with Hip Bilateral Lower Extremity X-Ray(s): Knee, AP / Lat / Tunne / Merchant Bilateral and Wt. Bearing PERIPHERAL IV DATA: Not applicable SIGNED BY: RT Araseli(R) September 12, 2023 1:35 PM [facility] 09-12-2023 Instructions Justine Leary APRN.CNP - 09/12/2023 1:23 PM EDT Get Xray completed Continue supportive care at home Be mindful with position changes Follow up pending test results documented in this encounter [facility] 09-12-2023 History of Present illness Narrative This is a 67 year old male who presents today with: Patient presents with: Acute Visit: Bilat knees painful HISTORY OF PRESENT ILLNESS: Bonnie Martinez is a 67 year old male. Patient presents with: Acute Visit: Bilat knees painful Here in the office for bilateral knee and hip pain. No injury to the area. Patient reports kneeling down on carpet or a bed causes severe pain 10/10. Patient reports it started about 1 month ago. Getting off of the knee stops the pain. Denies pain with walking. 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 Refers when he had consult with orthopedics at that time he was too young for hip replacement. 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 PMH - PAST MEDICAL HISTORY OF DDD, PMH - PAST MEDICAL HISTORY OF 08/2008 fracture clavicel, ribs and right ankle Unspecified essential hypertension PAST SURGICAL HISTORY Procedure Laterality Date PAST SURGICAL HISTORY OF pilondal cyst PAST SURGICAL HISTORY OF right 4th and 5th injury-[facility] PAST SURGICAL HISTORY OF Right 1985 right 4th and 5th fingers repaired following injury ALLERGIES Erythromycin Base MEDICATIONS Current Outpatient Medications Medication Sig predniSONE (DELTASONE) 10 mg tablet 6 tabs po day 1, then 5 tabs day 2, 4 tabs day 3, 3 tabs day 4, 2 tabs day 5, 1 tab day 6. diclofenac, EC, (VOLTAREN) 75 mg EC tablet Take 1 tablet by mouth two times a day. FOR PAIN No current facility-administered medications for this visit. FAMILY HISTORY Problem Relation Age of Onset Arthritis Mother other (Larynx cancer) Father other (hyperlipidemia) Father Social History Tobacco Use Smoking status: Never Smokeless tobacco: Never Vaping Use Vaping Use: Never used Substance Use Topics Alcohol use: Yes Comment: rarely Drug use: Never REVIEW OF SYSTEMS GENERAL: No weight loss, malaise or fevers/chills HEENT: Negative for frequent or significant headaches, No changes in hearing or vision. NECK: Negative for lumps, goiter, pain and significant neck swelling RESPIRATORY: Negative for cough, hemoptysis, wheezing, dyspnea or shortness of breath CARDIOVASCULAR: Negative for chest pain, leg swelling, orthopnea, or palpitations GI: No nausea, vomiting, or diarrhea/constipation. No hematochezia/melena. No heartburn or reflux symptoms. : No history of dysuria, frequency or incontinence MUSCULOSKELETAL: + Bilateral knee/hip pain. SKIN: Negative for lesions, rash, and itching ENDOCRINE: Negative for cold or heat intolerance, polyuria, polydipsia and goiter NEURO: No history of headaches, syncope, paralysis, seizures or tremors MOOD: Negative for depression, anxiety, or suicidal ideation. EXAM: BP 126/78 Pulse 89 Resp 16 Wt 93 kg (205 lb) SpO2 97% BMI 31.61 kg/m PHYSICAL EXAM: General Appearance: Well appearing, alert, in no acute distress, well-hydrated, well nourished. Skin: Skin color, texture, turgor normal, no suspicious rashes or lesions. Head: Normocephalic, no masses, lesions, tenderness or abnormalities. Eyes: Anicteric sclera. Extraocular movements are intact. Extremities: No deformities, edema, skin discoloration, clubbing or cyanosis. Good capillary refill. Musculoskeletal: + Full ROM of bilateral knees, no crepitus noted, protrusions noted bilaterally at the distal aspect of the patella. Similar to [place]-Schlatter's disease. Nontender with palpation, no edema noted. Negative valgus/varus and anterior drawer's test. Peripheral Pulses: Normal, Capillary refill <2secs, strong peripheral pulses, Pulses palpable. Neurologic: Gait normal. Reflexes normal and symmetric. Sensation grossly intact. ASSESSMENT/PLAN: 1. Pain in both knees, unspecified chronicity - ICD9: 719.46, ICD10: M25.561, M25.562 (primary diagnosis) - Get xray completed for further evaluation. - Continue supportive care at home. - XR KNEE GENERAL 4V AP BOTH/PA BOTH/LAT/MERC BILATERAL 2. Bilateral hip pain - ICD9: 719.45, ICD10: M25.551, M25.552 - Get x-ray completed - CONSULT TO ORTHOPAEDICS - XR HIP BILATERAL 5V PEL/AP/LAT EACH HIP Follow-up pending test results or sooner as needed. Discussed treatment plan and patient voices understanding. Patient's questions answered appropriately. Medications and potential side effects were discussed and patient voices understanding. Jusitne Leary APRN.EUSEBIO This note was partially generated using Getui recognition system. Note was reviewed for accuracy. There may be minor misspellings or grammar miscues with Vormetric voice recognition. documented in this encounter [facility] 09-12-2023 Note HNO ID: [id number] Author: JUSTINE LEARY APRN.CROP FARM HELPER Service: ? Author Type: Nurse Practitioner Type: Progress Notes Filed: 09/12/2023 13:40 Note Text: This is a 67 year old male who presents today with: Patient presents with: Acute Visit: Bilat knees painful HISTORY OF PRESENT ILLNESS: Bonnie Martinez is a 67 year old male. Patient presents with: Acute Visit: Bilat knees painful Here in the office for bilateral knee and hip pain. No injury to the area. Patient reports kneeling down on carpet or a bed causes severe pain 10/10. Patient reports it started about 1 month ago. Getting off of the knee stops the pain. Denies pain with walking. 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 Refers when he had consult with orthopedics at that time he was too young for hip replacement. 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 PMH - PAST MEDICAL HISTORY OF DDD, PMH - PAST MEDICAL HISTORY OF 08/2008 fracture clavicel, ribs and right ankle Unspecified essential hypertension PAST SURGICAL HISTORY Procedure Laterality Date PAST SURGICAL HISTORY OF pilondal cyst PAST SURGICAL HISTORY OF right 4th and 5th injury-[facility] PAST SURGICAL HISTORY OF Right 1985 right 4th and 5th fingers repaired following injury ALLERGIES Erythromycin Base MEDICATIONS Current Outpatient Medications Medication Sig predniSONE (DELTASONE) 10 mg tablet 6 tabs po day 1, then 5 tabs day 2, 4 tabs day 3, 3 tabs day 4, 2 tabs day 5, 1 tab day 6. diclofenac, EC, (VOLTAREN) 75 mg EC tablet Take 1 tablet by mouth two times a day. FOR PAIN No current facility-administered medications for this visit. FAMILY HISTORY Problem Relation Age of Onset Arthritis Mother other (Larynx cancer) Father other (hyperlipidemia) Father Social History Tobacco Use Smoking status: Never Smokeless tobacco: Never Vaping Use Vaping Use: Never used Substance Use Topics Alcohol use: Yes Comment: rarely Drug use: Never REVIEW OF SYSTEMS GENERAL: No weight loss, malaise or fevers/chills HEENT: Negative for frequent or significant headaches, No changes in hearing or vision. NECK: Negative for lumps, goiter, pain and significant neck swelling RESPIRATORY: Negative for cough, hemoptysis, wheezing, dyspnea or shortness of breath CARDIOVASCULAR: Negative for chest pain, leg swelling, orthopnea, or palpitations GI: No nausea, vomiting, or diarrhea/constipation. No hematochezia/melena. No heartburn or reflux symptoms. : No history of dysuria, frequency or incontinence MUSCULOSKELETAL: + Bilateral knee/hip pain. SKIN: Negative for lesions, rash, and itching ENDOCRINE: Negative for cold or heat intolerance, polyuria, polydipsia and goiter NEURO: No history of headaches, syncope, paralysis, seizures or tremors MOOD: Negative for depression, anxiety, or suicidal ideation. EXAM: BP 126/78 Pulse 89 Resp 16 Wt 93 kg (205 lb) SpO2 97% BMI 31.61 kg/m? PHYSICAL EXAM: General Appearance: Well appearing, alert, in no acute distress, well-hydrated, well nourished. Skin: Skin color, texture, turgor normal, no suspicious rashes or lesions. Head: Normocephalic, no masses, lesions, tenderness or abnormalities. Eyes: Anicteric sclera. Extraocular movements are intact. Extremities: No deformities, edema, skin discoloration, clubbing or cyanosis. Good capillary refill. Musculoskeletal: + Full ROM of bilateral knees, no crepitus noted, protrusions noted bilaterally at the distal aspect of the patella. Similar to Tri-Schlatter's disease. Nontender with palpation, no edema noted. Negative valgus/varus and anterior drawer's test. Peripheral Pulses: Normal, Capillary refill <2secs, strong peripheral pulses, Pulses palpable. Neurologic: Gait normal. Reflexes normal and symmetric. Sensation grossly intact. ASSESSMENT/PLAN: 1. Pain in both knees, unspecified chronicity - ICD9: 719.46, ICD10: M25.561, M25.562 (primary diagnosis) - Get xray completed for further evaluation. - Continue supportive care at home. - XR KNEE GENERAL 4V AP BOTH/PA BOTH/LAT/MERC BILATERAL 2. Bilateral hip pain - ICD9: 719.45, ICD10: M25.551, M25.552 - Get x-ray completed - CONSULT TO ORTHOPAEDICS - XR HIP BILATERAL 5V PEL/AP/LAT EACH HIP Follow-up pending test results or sooner as needed. Discussed treatment plan and patient voices understanding. Patient's questions answered appropriately. Medications and potential side effects were discussed and patient voices understanding. Justine Leary APRN.EUSEBIO This note was partially generated using Vormetric voice recognition system. Note was reviewed for accuracy. There may be minor misspellings or grammar miscues with [employer] voice recognition. [facility] 06-08-2023 Note HNO ID: [id number] Author: NY GOLDSTEIN MA Service: ? Author Type: Poultry Sexer Type: Progress Notes Filed: 06/08/2023 09:19 Note Text: POPULATION HEALTH NAVIGATION OUTREACH Action/FYI Patient is on [facility] list for below and needs appointment to address: RSV Vaccine(1 - 1-dose 60+ series) Covid-19 Vaccine() Pneumococcal Vaccine: 65+(1 of 1 - PCV) Advance Directive Discussion Behavioral Health Screening Hemoglobin A1C (%) Date Value 09/28/2020 5.6 Patient due for: Medicare Annual Wellness Visit - 11-20-22 Advance Directives Left message for patient to call back. Sent mychart message. Reason for Outreach Care Gap/HCC or Scheduling Wellness Visits Care Gaps due: Medicare Annual Wellness Visit Advance Directives Patient Contacted: Unable or unnecessary to reach patient: Left message MyChart message sent HCC related Navigation Signature: Ny Goldstein MA June 08, 2023 7:09 AM [facility] 06-08-2023 History of Present illness Narrative POPULATION HEALTH NAVIGATION OUTREACH Action/FYI Patient is on [facility] list for below and needs appointment to address: RSV Vaccine(1 - 1-dose 60+ series) Covid-19 Vaccine() Pneumococcal Vaccine: 65+(1 of 1 - PCV) Advance Directive Discussion Behavioral Health Screening Hemoglobin A1C (%) Date Value 09/28/2020 5.6 Patient due for: Medicare Annual Wellness Visit - 11-20-22 Advance Directives Left message for patient to call back. Sent mychart message. Reason for Outreach Care Gap/HCC or Scheduling Wellness Visits Care Gaps due: Medicare Annual Wellness Visit Advance Directives Patient Contacted: Unable or unnecessary to reach patient: Left message MyChart message sent HCC related Navigation Signature: Ny Goldstein MA June 08, 2023 7:09 AM documented in this encounter [facility] 06-08-2023 Note Patient Outreach (NE TNAV) BONNIE MARTINEZ ([id number]) 1955 M Date Time Provider Department 06/08/23 NY GOLDSTEIN During your visit today, we recorded the following information about you: Ny Goldstein MA 06/08/2023 9:19 AM Signed POPULATION HEALTH NAVIGATION OUTREACH Action/ Patient is on [facility] list for below and needs appointment to address: RSV Vaccine(1 - 1-dose 60+ series) Covid-19 Vaccine( season) Pneumococcal Vaccine: 65+(1 of 1 - PCV) Advance Directive Discussion Behavioral Health Screening Hemoglobin A1C (%) Date Value 09/28/2020 5.6 Patient due for: Medicare Annual Wellness Visit - 11-20-22 Advance Directives Left message for patient to call back. Sent Archetypes message. Reason for Outreach Care Gap/HCC or Scheduling Wellness Visits Care Gaps due: Medicare Annual Wellness Visit Advance Directives Patient Contacted: Unable or unnecessary to reach patient: Left message IvyDatehart message sent [facility] related Navigation Signature: Ny Goldstein MA June 08, 2023 7:09 AM Allergies As of Date: 06/08/2023 Noted Allergy Reaction ERYTHROMYCIN BASE 09/21/2008 8 - GI Upset Date Reviewed: 01/15/2023 Reviewed by: Jasmina Reyes PA-C - Fully Assessed Reason for Visit: Population Health Navigation Outreach [3910] Cmt: [employer] - AWV, Care gaps, HCC gap closure - [facility]SA Prescriptions as of 06/08/2023 - predniSONE (DELTASONE) 10 mg tablet 6 tabs po day 1, then 5 tabs day 2, 4 tabs day 3, 3 tabs day 4, 2 tabs day 5, 1 tab day 6. - diclofenac, EC, (VOLTAREN) 75 mg EC tablet Take 1 tablet by mouth two times a day. 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] 07/05/2010 Tendonitis, Achilles, left [M76.62] 02/06/2011 Pure hypercholesterolemia [E78.00] 05/31/2015 Nonintractable headache [R51.9] 05/31/2015 Conductive hearing loss, bilateral [H90.0] 09/23/2020 DDD (degenerative disc disease), cervical [M50.*04/04/2023 Numbness of hand [R20.0] 04/04/2023 Acute pain of right shoulder [M25.511] 04/04/2023 Chronic neck pain [M54.2, G89.29] 04/04/2023 Encounter Status:Closed by NY GOLDSTEIN on 06/08/23 [facility] 04-12-2023 History of Present illness Narrative Program_ID:[id number] Access Code: [email or web address] URL: [email or web address] Date: 04-12-2023 Prepared By: Bel Renee Program Notes Exercises - Standing Shoulder Posterior Capsule Stretch - 1-2 x daily - 7 x weekly - 3 sets - 1 reps - Doorway Pec Stretch at 60 Degrees Abduction with Arm Straight - 1-2 x daily - 7 x weekly - 3 sets - 1 reps - Seated Gentle Upper Trapezius Stretch - 1 x daily - 7 x weekly - 1 sets - 3 reps - Standing Shoulder Flexion to 90 Degrees with Dumbbells - 2 x daily - 7 x weekly - 2 sets - 10 reps - Scaption with Dumbbells - 2 x daily - 7 x weekly - 2 sets - 10 reps - Shoulder Abduction with Dumbbells - Thumbs Up - 2 x daily - 7 x weekly - 2 sets - 10 reps - Shoulder External Rotation Reactive Isometrics - 2 x daily - 7 x weekly - 2 sets - 10 reps - Standing Shoulder Internal Rotation with Anchored Resistance - 2 x daily - 7 x weekly - 2 sets - 10 reps Episode Visit Count: 3 Therapist That Will Accept/Oversee The Plan Of Care: Bel Renee Start of Care Date: 04/04/23 Onset Date: 08/02/22 Plan of Care Certification Date: 04/04/23 Next Certification Due Date: 05/09/23 Patient Identified by Name and Date of : Yes REHABILITATION AND SPORTS THERAPY PHYSICAL THERAPY TREATMENT NOTE ASSESSMENT: Bonnie Spann Turney tolerated the session with fatigue and expected muscle soreness. He demonstrated improvements in R shoulder AROM and tolerance to exercise without increase in pain. The patient will continue to benefit from ongoing skilled physical therapy to progress toward set goals. PLAN FOR NEXT VISIT: Hold chart for 1 month in case pt would like to return for further strengthening SUBJECTIVE: Pt reports that his shoulder is doing great, best it has been in months. Pt states his neck is fine, still a little pull when leans to the one side. Yesterday pt moved a bunch of furniture and installed a toilet without increased pain or soreness. Pt almost able to sleep the way he did with his arm up over head. He also states that he was able to hold his arm up in the shower without difficulty or pain. Pt would like this to be his last visit due to feeling better. Pain: Pain Pain Location: Shoulder - Right Pain Location 2: Neck Post Treatment Pain Post Treatment Pain Location: Shoulder - Right OBJECTIVE MEASURES WITH LEVEL OF FUNCTION: UE AROM R Shoulder Flex: 150 Degrees (aching sensation) R Shoulder ABduction: 147 Degrees (aching sensation) R Shoulder Internal Rotation (Functional): T12 R Shoulder External Rotation (Functional): T2 TREATMENT: Therapeutic Exercise: 1: *UT stretch 3x30 seconds R only 2: *AROM R shoulder flexion x10 ( I can tell I've worked the muscle ) 3: *AROM R shoulder scaption x10 4: *AROM R shoulder abdcution 2x10 5: *Scapular retraction 2x10 6: *Shoulder ER with pink theraband 2x10 7: *Shoulder IR with GTB 2x10 8: Discussed how to progess exercises with free weights as soreness subsides. Skilled Intervention: Patient was educated in proper exercise technique and purpose for exercises. Reviewed and educated patient on additions/changes for home exercise program as above (*). Skilled judgment was used in selection of appropriate interventions. Provided written instruction for home exercise program to facilitate proper performance and compliance. Correct performance of therapeutic exercises was facilitated with verbal and visual cuing. Billing Therapeutic Exercise Treatment Minutes: 33 Skilled Treatment Time Minutes (timed and untimed codes): 33 Total Session Time (minutes): 33 Session Start Time : 929 Session Stop Time : 1003 MILES Barillas PT documented in this encounter [facility] 04-12-2023 Note HNO ID: [id number] Author: BEL RENEE PT Service: ? Author Type: Physical Therapist Type: Progress Notes Filed: 06/05/2023 08:44 Note Text: 06/05/2023 [facility] REHABILITATION AND SPORTS THERAPY PHYSICAL THERAPY DISCONTINUANCE OF CARE Plan of Care Period: Start of Care Date: 04/04/23 Last Visit Date: 04/12/2023 Therapy Program: The following is a summary of the interventions provided for this episode of care; Therapeutic exercise and Self-usp management Assessment: Based on most recent visit, patient was progressing as expected toward functional goals based on home exercise program compliance and documented subjective information on progress. Unable to formally assess goal achievement, as patient has not returned to therapy or scheduled additional follow-up appointments. Reason for Discontinuation of Care: Patient has not returned to therapy or scheduled additional follow-up appointments. Bel Renee PT Episode Visit Count: 3 Therapist That Will Accept/Oversee The Plan Of Care: Bel Renee Start of Care Date: 04/04/23 Onset Date: 08/02/22 Plan of Care Certification Date: 04/04/23 Next Certification Due Date: 05/09/23 Patient Identified by Name and Date of : Yes REHABILITATION AND SPORTS THERAPY PHYSICAL THERAPY TREATMENT NOTE ASSESSMENT: Bonnie Martinez tolerated the session with fatigue and expected muscle soreness. He demonstrated improvements in R shoulder AROM and tolerance to exercise without increase in pain. The patient will continue to benefit from ongoing skilled physical therapy to progress toward set goals. PLAN FOR NEXT VISIT: Hold chart for 1 month in case pt would like to return for further strengthening SUBJECTIVE: Pt reports that his shoulder is doing great, best it has been in months. Pt states his neck is fine, still a little pull when leans to the one side. Yesterday pt moved a bunch of furniture and installed a toilet without increased pain or soreness. Pt almost able to sleep the way he did with his arm up over head. He also states that he was able to hold his arm up in the shower without difficulty or pain. Pt would like this to be his last visit due to feeling better. Pain: Pain Pain Location: Shoulder - Right Pain Location 2: Neck Post Treatment Pain Post Treatment Pain Location: Shoulder - Right OBJECTIVE MEASURES WITH LEVEL OF FUNCTION: UE AROM R Shoulder Flex: 150 Degrees (aching sensation) R Shoulder ABduction: 147 Degrees (aching sensation) R Shoulder Internal Rotation (Functional): T12 R Shoulder External Rotation (Functional): T2 TREATMENT: Therapeutic Exercise: 1: *UT stretch 3x30 seconds R only 2: *AROM R shoulder flexion x10 ( I can tell I've worked the muscle ) 3: *AROM R shoulder scaption x10 4: *AROM R shoulder abdcution 2x10 5: *Scapular retraction 2x10 6: *Shoulder ER with pink theraband 2x10 7: *Shoulder IR with GTB 2x10 8: Discussed how to progess exercises with free weights as soreness subsides. Skilled Intervention: Patient was educated in proper exercise technique and purpose for exercises. Reviewed and educated patient on additions/changes for home exercise program as above (*). Skilled judgment was used in selection of appropriate interventions. Provided written instruction for home exercise program to facilitate proper performance and compliance. Correct performance of therapeutic exercises was facilitated with verbal and visual cuing. Billing Therapeutic Exercise Treatment Minutes: 33 Skilled Treatment Time Minutes (timed and untimed codes): 33 Total Session Time (minutes): 33 Session Start Time : 929 Session Stop Time : 100 Jolene Romero, DRINKING WATER TECHNICIAN Bel Renee, PT [facility] 04-10-2023 History of Present illness Narrative Program_ID:[id number] Access Code: [email or web address] URL: [email or web address] Date: 04-10-2023 Prepared By: Bel Renee Program Notes Exercises - Standing Shoulder Posterior Capsule Stretch - 1-2 x daily - 7 x weekly - 3 sets - 1 reps - Doorway Pec Stretch at 60 Degrees Abduction with Arm Straight - 1-2 x daily - 7 x weekly - 3 sets - 1 reps Episode Visit Count: 2 Therapist That Will Accept/Oversee The Plan Of Care: Bel Renee Start of Care Date: 04/04/23 Onset Date: 08/02/22 Plan of Care Certification Date: 04/04/23 Next Certification Due Date: 05/09/23 REHABILITATION AND SPORTS THERAPY PHYSICAL THERAPY TREATMENT NOTE ASSESSMENT: Bonnie Martinez tolerated the session with expected muscle soreness. He demonstrated improvements in AROM to WNL without limitation due to radiating symptoms, just muscular soreness in the anterior shoulder and lateral deltoids at end ranges. This resolves with posterior capsule stretching. The patient will continue to benefit from ongoing skilled physical therapy to progress toward set goals. PLAN FOR NEXT VISIT: dc median nerve glides. Pt. to only complete pectoralis stretching and posterior capsule stretching when he has increased soreness in the R arm. Otherwise, stop exercises and allow the shoulder to recover. SUBJECTIVE: Pt. reports increased ROM R shoulder flexion, abduction, IR and extension. Happy with results so far. Pt. dc exercises due to increased soreness but reports radiating symptoms have improved. Pain has centralized to the R neck, lat, deltoids, and pectoralis and triceps with reaching forward and to the side to endrange. Pain: Pain Pain Level: 0 Pain Location: Shoulder - Right Description: Sore Frequency: With movement Additional Pain Information : Location 2 Pain Level 2: 0 Pain Location 2: Neck Post Treatment Pain Post Treatment Pain Level: Better Post Treatment Pain Location: Shoulder - Right Post Treatment Symptoms: pt. happy with results, symtpoms completely subside with posterior capulse stretch. Agrees with POC. OBJECTIVE MEASURES WITH LEVEL OF FUNCTION: TREATMENT: Therapeutic Exercise: 1: R shoulder flexion #1 DB 5x - increased pain at end range, not painful throughout arc - pain along deltoid - even with scapular retraction 2: R shoulder abduction #1 DB 5x - increased pain at end range, not painful throughout arc - pain along deltoid - even with scapular retraction 3: radial nerve glides with cervical SB R 1x10 - only neck pain, no tricep syptoms produced 4: radial nerve glides with cervical SB L 1x10 - only neck pain, no tricep syptoms produced (stretch felt R UT) 5: R shoulder flexion, extension, H abd, H add, ER, and IR, reaching behind the back and extending the shoulder to bring hand off the back - end of visit - demosntrated full AROM without symptoms at endrange 6: *Access Code: [email or web address] URL: [email or web address] Date: 04/10/2023 Prepared by: Bel Marie Exercises - Standing Shoulder Posterior Capsule Stretch - 1-2 x daily - 7 x weekly - 3 sets - 1 reps - 30 hold - Doorway Pec Stretch at 60 Degrees Abduction with Arm Straight - 1-2 x daily - 7 x weekly - 3 sets - 1 reps - 30 hold (symptoms in the deltoid and triceps resolve with posterior capsule stretch, some triceps pain with pectoralis minor stretch but anterior shoulder pain resolved. denies triceps pain at end of visit with AROM R shoulder at each endrange movement) Skilled Intervention: Patient was educated in proper exercise technique and purpose for exercises. Skilled judgment was used in selection of appropriate interventions. Provided written instruction for home exercise program to facilitate proper performance and compliance. Correct performance of therapeutic exercises was facilitated with verbal, visual, and tactile cuing. Educated patient on rationale for performing exercises in regards to decreasing fatigue , increase ease of ADL, and ROM and function . Patient education as noted. Self-Half-Way Management: 1: pause median nerve glides 2: discussed increased soreness may be due to limited mobility and avoiding aggravating movements - muscles responding to new ROM and volume of exercises 3: use posterior capsule stretch and pect stretch only when having soreness, otherwise avoid overuse of the shoulder at this time and determine if sorenesss subsides while maintaining ROM Skilled Intervention: Skilled judgment in the selection of proper modification for activity of daily living/home management based on clinical presentation, deficits, and needs. Provided written instruction for activities of daily living techniques to facilitate proper performance and compliance. Reviewed patient specific diagnosis in relation to activities of daily living/home management. Activity progression based on professional judgement. Provided written instruction for home program to facilitate proper performance and compliance. Correct performance of home program was facilitated with verbal, visual, and tactile cueing. Billing Therapeutic Exercise Treatment Minutes: 20 Self-Care/Home Management Treatment Minutes: 8 Total Session Time (minutes): 28 Session Start Time : 1500 Session Stop Time : 1528 Bel Renee PT documented in this encounter [facility] 04-10-2023 Note HNO ID: [id number] Author: BEL RENEE PT Service: ? Author Type: Physical Therapist Type: Progress Notes Filed: 06/05/2023 08:44 Note Text: Episode Visit Count: 2 Therapist That Will Accept/Oversee The Plan Of Care: Bel Renee Start of Care Date: 04/04/23 Onset Date: 08/02/22 Plan of Care Certification Date: 04/04/23 Next Certification Due Date: 05/09/23 REHABILITATION AND SPORTS THERAPY PHYSICAL THERAPY TREATMENT NOTE ASSESSMENT: Bonnie Martinez tolerated the session with expected muscle soreness. He demonstrated improvements in AROM to WNL without limitation due to radiating symptoms, just muscular soreness in the anterior shoulder and lateral deltoids at end ranges. This resolves with posterior capsule stretching. The patient will continue to benefit from ongoing skilled physical therapy to progress toward set goals. PLAN FOR NEXT VISIT: dc median nerve glides. Pt. to only complete pectoralis stretching and posterior capsule stretching when he has increased soreness in the R arm. Otherwise, stop exercises and allow the shoulder to recover. SUBJECTIVE: Pt. reports increased ROM R shoulder flexion, abduction, IR and extension. Happy with results so far. Pt. dc exercises due to increased soreness but reports radiating symptoms have improved. Pain has centralized to the R neck, lat, deltoids, and pectoralis and triceps with reaching forward and to the side to endrange. Pain: Pain Pain Level: 0 Pain Location: Shoulder - Right Description: Sore Frequency: With movement Additional Pain Information : Location 2 Pain Level 2: 0 Pain Location 2: Neck Post Treatment Pain Post Treatment Pain Level: Better Post Treatment Pain Location: Shoulder - Right Post Treatment Symptoms: pt. happy with results, symtpoms completely subside with posterior capulse stretch. Agrees with POC. OBJECTIVE MEASURES WITH LEVEL OF FUNCTION: TREATMENT: Therapeutic Exercise: 1: R shoulder flexion #1 DB 5x - increased pain at end range, not painful throughout arc - pain along deltoid - even with scapular retraction 2: R shoulder abduction #1 DB 5x - increased pain at end range, not painful throughout arc - pain along deltoid - even with scapular retraction 3: radial nerve glides with cervical SB R 1x10 - only neck pain, no tricep syptoms produced 4: radial nerve glides with cervical SB L 1x10 - only neck pain, no tricep syptoms produced (stretch felt R UT) 5: R shoulder flexion, extension, H abd, H add, ER, and IR, reaching behind the back and extending the shoulder to bring hand off the back - end of visit - demosntrated full AROM without symptoms at endrange 6: *Access Code: [email or web address] URL: [email or web address] Date: 04/10/2023 Prepared by: Bel Renee Exercises - Standing Shoulder Posterior Capsule Stretch - 1-2 x daily - 7 x weekly - 3 sets - 1 reps - 30 hold - Doorway Pec Stretch at 60 Degrees Abduction with Arm Straight - 1-2 x daily - 7 x weekly - 3 sets - 1 reps - 30 hold (symptoms in the deltoid and triceps resolve with posterior capsule stretch, some triceps pain with pectoralis minor stretch but anterior shoulder pain resolved. denies triceps pain at end of visit with AROM R shoulder at each endrange movement) Skilled Intervention: Patient was educated in proper exercise technique and purpose for exercises. Skilled judgment was used in selection of appropriate interventions. Provided written instruction for home exercise program to facilitate proper performance and compliance. Correct performance of therapeutic exercises was facilitated with verbal, visual, and tactile cuing. Educated patient on rationale for performing exercises in regards to decreasing fatigue , increase ease of ADL, and ROM and function . Patient education as noted. Self-Half-Way Management: 1: pause median nerve glides 2: discussed increased soreness may be due to limited mobility and avoiding aggravating movements - muscles responding to new ROM and volume of exercises 3: use posterior capsule stretch and pect stretch only when having soreness, otherwise avoid overuse of the shoulder at this time and determine if sorenesss subsides while maintaining ROM Skilled Intervention: Skilled judgment in the selection of proper modification for activity of daily living/home management based on clinical presentation, deficits, and needs. Provided written instruction for activities of daily living techniques to facilitate proper performance and compliance. Reviewed patient specific diagnosis in relation to activities of daily living/home management. Activity progression based on professional judgement. Provided written instruction for home program to facilitate proper performance and compliance. Correct performance of home program was facilitated with verbal, visual, and tactile cueing. Billing Therapeutic Exercise Treatment Minutes: 20 Self-Care/Ho (more content not included)... [facility] 04-04-2023 Miscellaneous Notes Addended by: BEL RENEE on: 04/04/2023 10:25 AM Modules accepted: Orders documented in this encounter [facility] 04-04-2023 History of Present illness Narrative Program_ID:[id number] Access Code: [email or web address] URL: [email or web address] Date: 04-04-2023 Prepared By: Bel Renee Program Notes Exercises - Ulnar Nerve/Median Earle- Low Level - 3-5 x daily - 7 x weekly - 2 sets - 10 reps - Seated Scapular Retraction - 2-3 x daily - 7 x weekly - 3 sets - 15 reps - Doorway Pec Stretch at 60 Degrees Abduction with Arm Straight - 2-3 x daily - 7 x weekly - 3 sets - 1 reps Episode Visit Count: 1 Therapist That Will Accept/Oversee The Plan Of Care: Bel Renee Start of Care Date: 04/04/23 Onset Date: 08/02/22 Plan of Care Certification Date: 04/04/23 Next Certification Due Date: 05/09/23 Patient Identified by Name and Date of : Yes REHABILITATION AND SPORTS THERAPY PHYSICAL THERAPY EVALUATION PLAN OF CARE: Assessment: Bonnie Martinez presents with diagnosis of DDD of cervical spine, numbness of hand that interferes with reaching behind back, reaching overhead . He presents with impairments in ADL's, flexibility, independence in exercise, joint mobility, overall function, patient reported outcome measures, posture, range of motion, strength, and symptom management. PROMIS (Patient-Reported Outcomes Measurement Information System) scores were reviewed and physical function domain identified as a rehabilitation concern. Prognosis for therapy is Good due to: within-session changes, good support system/ coping skills, current objective clinical presentation, good overall health status, acuteness of condition, positive past response to therapy . He will benefit from skilled therapy services to meet the goals established for this plan of care as noted below. Goals for Episode of Care: created on 04/04/23 through 05/16/23 [place] in home exercise program. Patient will decrease pain to 1-2/10 with functional activities to allow patient to improve st tolerance for ADLs including tucking in a shirt. Patient will increase active ROM of R shoulder IR to equal of that LUE IR AROM to allow pt to to improve performance of ADLs. Patient will increase flexibility of R pectoralis major and minor to equal unaffected extremity/side to improve ability to maintain proper posture, improve mechanics, and decrease pain. Perform reaching behind the back, to the side, and overhead with decreased report of symptoms/pain in 6 weeks. Perform sleeping x 6-8 hours without interruption due to increased neck or R shoulder pain. 5/7 nights a week. Planned Interventions, Frequency, and Duration: Current Frequency: 2x/week Duration: 6 weeks Total Number of Visits Planned: 12 Planned Treatment Interventions: Self-usp management (44143), Therapeutic activities (60196), Manual therapy (60442), Neuromuscular re-education (39488), Therapeutic exercise (16569) PLAN FOR NEXT VISIT: assess median nerve glides, progress to scapular depression self mobilization with the LUE with cervical side flexion L. progress pect stretching as tolerated, consider wand BUE AAROM shoulder extension. Very important to complete exercises within a pain free ROM. Patient demonstrates good understanding of plan of care and treatment. The above goals and plan of care were discussed and agreed upon by patient/family. SUBJECTIVE: for R shoulder pain upon waking July 2022. Pt. has been to ortho who referred him to PT. Pt. reports difficulty reaching behind the back, difficulty sleeping . Functional Limitations: reaching behind back, reaching overhead Prior Level of Function: Independent without limitations Relevant History Right or Left Handed: Right Hobbies / Interests: motorcyle Intake Information: Prescription present Previous Treatment: (tylenol, exedrin. unable to tolerate meds given by ortho due to stomach upset) Red Flags Cancer Red Flags: Age >50 or <20 Cancer Clinical Reasoning: Proceed with caution Infection Clinical Reasoning: No identified risk factors. Cervical Arterial Dysfunction Clinical Reasoning: No identified risk factors Cervical Myelopathy: Age > 45 yo Red Flags - Cervical Cancer Red Flags: Age >50 or <20 Cancer Clinical Reasoning: Proceed with caution Infection Clinical Reasoning: No identified risk factors. Cervical Arterial Dysfunction Clinical Reasoning: No identified risk factors Cervical Myelopathy: Age > 45 yo Spine History Symptoms Location at Onset: Neck Pain is Worse Always: On the Move Pain is Better Always: Rest (R arm directly at the side, and scapular depression self mobilization with the LUE) Sleep Affected by Pain: Pain awakens, Pain keeps from falling asleep Pain: Pain Pain Level: 0 Pain Location: Shoulder - Right Description: Sharp Frequency: With movement Additional Pain Information : Location 2 Pain Level 2: 0 Pain Location 2: Neck Description 2: (not right now) Post Treatment Pain Post Treatment Pain Location: Shoulder - Right Post Treatment Symptoms: improved reaching behind the back with R shoulder with reduced symptoms reported by pt. PROMIS Scales Higher is Better 04/01/2023 Phys Func - Score 44 (mild dysfunction) Phys Func - Percentile 27% Self-Eff Symptom - Score 48 (Average) Self-Eff Symptom - Percentile 42% T-scores: mean of general population = 50. 5 points is clinically meaningfully difference Percentiles provide an indication of how the patient's score ranks in relation to the general population. Higher percentile rankings indicate better function/quality of life. 50th percentile is the average of the general population and indicates half of respondents had a worse score. OBJECTIVE MEASURES WITH LEVEL OF FUNCTION: Posture / Alignment Posture: Elevated shoulder - right, Forward head Effects of Posture Correction: no effect Sensation - Cervical Spine Cervical Spine Sensation: Grossly Intact Cervical Spine ROM Cervical ROM : Limitation AROM Cervical Protrusion AROM: Produces, Peripheralizing Cervical Retraction AROM: Normal Cervical Flexion AROM: Normal Cervical Extension AROM: Normal Cervical Side-Bend Right AROM: Normal, Peripheralizing Cervical Side-Bend Left AROM: End range pain (pulling, non-concordant) Cervical Rotation Right AROM: Normal Cervical Rotation Left AROM: Normal UE AROM R Shoulder Flex: 132 Degrees (before increased pain onset range) R Shoulder Internal Rotation (Functional): improved to ~L4 following median nerve glides in standing (away from the back - much increased pain, describes about L5, but unable to bring the hand higher up) L Shoulder Internal Rotation (Functional): T12 UE Flexibility Flexibility: Upper Trapezius, Levator Scapulae, Pectoral Muscles R Upper Trapezius Flexibilty Comments: tightness without radiating shoudler pain R Levator Scapulae Flexibilty Comments: tightness without radiating shoulder pain R Pectorals Comments: limited - unable to tolerate pect minor stretch greater than 30 degrees of shoulder abd Special Tests - Cervical Cervical Special Tests: Ulnar Nerve, Radial Nerve, Median Nerve Median Nerve: Right Positive Radial Nerve: Right Negative, Left Negative Education: Education Learning Preferences: Demonstration, Explanation, Performance, Printed Materials Learning/educational needs: Plan of Care, Home exercise program, Posture Education Provided: Yes, see treatment interventions for education provided TREATMENT: PT Treatment Interventions: Therapeutic Exercise, Self-Half-Way Management Evaluation Therapeutic Exercise: 1: *Access Code: [email or web address] URL: [email or web address] Date: 04/04/2023 Prepared by: Bel Marie Exercises - Ulnar Nerve/Median Earle- Low Level - 3-5 x daily - 7 x weekly - 2 sets - 10 reps - 10 hold - Seated Scapular Retraction - 2-3 x daily - 7 x weekly - 3 sets - 15 reps - 1 hold - Doorway Pec Stretch at 60 Degrees Abduction with Arm Straight - 2-3 x daily - 7 x weekly - 3 sets - 1 reps - 30 hold (0-30 degrees of abd for pect minor stretch, cervical side flexion L with median nerve glide at R wirst at 0 abd of R shoulder) Skilled Intervention: Patient was educated in proper exercise technique and purpose for exercises. Skilled judgment was used in selection of appropriate interventions. Provided written instruction for home exercise program to facilitate proper performance and compliance. Correct performance of therapeutic exercises was facilitated with verbal, visual, and tactile cuing. Educated patient on rationale for performing exercises in regards to decreasing fatigue , increase ease of ADL, and ROM and function . Patient education as noted. Self-Half-Way Management: 1: postural awareness 2: median nerve glide and median nerve innervation 3: discussed cervical spine mechanics and how it may refer to the shoulder 4: discussed slow within tolerance stretches with gradual increase - avoid irritating or pushing through painful ranges Skilled Intervention: Skilled judgment in the selection of proper modification for activity of daily living/home management based on clinical presentation, deficits, and needs. Provided written instruction for activities of daily living techniques to facilitate proper performance and compliance. Reviewed patient specific diagnosis in relation to activities of daily living/home management. Activity progression based on professional judgement. Moderate verbal cues for maintaining neutral spine alignment. Instructed on proper lifting and carrying techniques with importance of core activation. Provided written instruction for home program to facilitate proper performance and compliance. Correct performance of home program was facilitated with verbal, visual, and tactile cueing. Billing * Evaluation Low Complexity: 1 Unit Therapeutic Exercise Treatment Minutes: 15 Self-Care/Home Management Treatment Minutes: 10 Skilled Treatment Time Minutes (timed and untimed codes): 45 Total Session Time (minutes): 45 Session Start Time : 0811 Session Stop Time : 0856 Bel Renee PT documented in this encounter [facility] 04-04-2023 Note HNO ID: [id number] Author: BEL RENEE PT Service: ? Author Type: Physical Therapist Type: Progress Notes Filed: 04/04/2023 10:24 Note Text: Episode Visit Count: 1 Therapist That Will Accept/Oversee The Plan Of Care: Bel Renee Start of Care Date: 04/04/23 Onset Date: 08/02/22 Plan of Care Certification Date: 04/04/23 Next Certification Due Date: 05/09/23 Patient Identified by Name and Date of : Yes REHABILITATION AND SPORTS THERAPY PHYSICAL THERAPY EVALUATION PLAN OF CARE: Assessment: Bonnie Martinez presents with diagnosis of DDD of cervical spine, numbness of hand that interferes with reaching behind back, reaching overhead . He presents with impairments in ADL's, flexibility, independence in exercise, joint mobility, overall function, patient reported outcome measures, posture, range of motion, strength, and symptom management. PROMIS? (Patient-Reported Outcomes Measurement Information System) scores were reviewed and physical function domain identified as a rehabilitation concern. Prognosis for therapy is Good due to: within-session changes, good support system/ coping skills, currentobjective clinical presentation, good overall health status, acuteness ofcondition, positive past response to therapy . He will benefit from skilled therapy services to meet the goals established for this plan of care as noted below. Goals for Episode of Care: created on 04/04/23 through 05/16/23 [place] in home exercise program. Patient will decrease pain to 1-2/10 with functional activities to allow patient to improve st tolerance for ADLs including tucking in a shirt. Patient will increase active ROM of R shoulder IR to equal of that LUE IR AROM to allow pt to to improve performance of ADLs. Patient will increase flexibility of R pectoralis major and minor to equal unaffected extremity/side to improve ability to maintain proper posture, improve mechanics, and decrease pain. Perform reaching behind the back, to the side, and overhead with decreased report of symptoms/pain in 6 weeks. Perform sleeping x 6-8 hours without interruption due to increased neck or R shoulder pain. 5/7 nights a week. Planned Interventions, Frequency, and Duration: Current Frequency: 2x/week Duration: 6 weeks Total Number of Visits Planned: 12 Planned Treatment Interventions: Self-usp management (65054), Therapeutic activities (31861), Manual therapy (92607), Neuromuscular re-education (27355), Therapeutic exercise (91116) PLAN FOR NEXT VISIT: assess median nerve glides, progress to scapular depression self mobilization with the LUE with cervical side flexion L. progress pect stretching as tolerated, consider wand BUE AAROM shoulder extension. Very important to complete exercises within a pain free ROM. Patient demonstrates good understanding of plan of care and treatment. The above goals and plan of care were discussed and agreed upon by patient/family. SUBJECTIVE: for R shoulder pain upon waking July 2022. Pt. has been to ortho who referred him to PT. Pt. reports difficulty reaching behind the back, difficulty sleeping . Functional Limitations: reaching behind back, reaching overhead Prior Level of Function: Independent without limitations Relevant History Right or Left Handed: Right Hobbies / Interests: motorcyle Intake Information: Prescription present Previous Treatment: (tylenol, exedrin. unable to tolerate meds given by ortho due to stomach upset) Red Flags Cancer Red Flags: Age >50 or <20 Cancer Clinical Reasoning: Proceed with caution Infection Clinical Reasoning: No identified risk factors. Cervical Arterial Dysfunction Clinical Reasoning: No identified risk factors Cervical Myelopathy: Age > 45 yo Red Flags - Cervical Cancer Red Flags: Age >50 or <20 Cancer Clinical Reasoning: Proceed with caution Infection Clinical Reasoning: No identified risk factors. Cervical Arterial Dysfunction Clinical Reasoning: No identified risk factors Cervical Myelopathy: Age > 45 yo Spine History Symptoms Location at Onset: Neck Pain is Worse Always: On the Move Pain is Better Always: Rest (R arm directly at the side, and scapular depression self mobilization with the LUE) Sleep Affected by Pain: Pain awakens, Pain keeps from falling asleep Pain: Pain Pain Level: 0 Pain Location: Shoulder - Right Description: Sharp Frequency: With movement Additional Pain Information : Location 2 Pain Level 2: 0 Pain Location 2: Neck Description 2: (not right now) Post Treatment Pain Post Treatment Pain Location: Shoulder - Right Post Treatment Symptoms: improved reaching behind the back with R shoulder with reduced symptoms reported by pt. PROMIS Scales Higher is Better 04/01/2023 Phys Func - Score 44 (mild dysfunction) Phys Func - Percentile 27% Self-Eff Symptom - Score 48 (Average) Self-Eff Symptom - Percentile 42% T-scores: mean of general (more content not included)... [facility] 01-15-2023 Note HNO ID: [id number] Author: Jasmnia Reyes PA-C Service: ? Author Type: Physician Supervisor Residential Type: Progress Notes Filed: 01/15/2023 1:59 PM Note Text: Jasmina Reyes PA-C Department of Orthopaedics Orthopaedics [address] [facility] [address] Dept: [phone] Dept January 15, [address] Justine Leary for an opinion regarding right shoulder pain. My final recommendations will be communicated back to the requesting physician by way of shared Medical record or letter to requesting physician via [place] mail. CHIEF COMPLAINT: New of the Right Shoulder (Right shoulder pain/Referred by Thelma Leary, [employer] 11/20/2022/Last seen by BP 02/24/2019 bilateral ulnar nerve neuropathy ) Mr. Bonnie Martinez is a 67 year old male who presents with pain in the right shoulder which has been bothering him for the past 6 months. No known injury. Pain is worse when he tries to reach behind his back or to reach overhead. Pain today is a 1 out of 10 aching but it can get as bad as a 10 out of 10. He is not taking any type of oral anti-inflammatory. Pain does not radiate down the arm. Has no issues with sleeping. He is right-hand dominant, he is retired, enjoys riding his motorcycle for long trips in the summer. He also complains of some numbness in both of his pinkies, mostly at night. He is also getting a snapping in his left elbow if he sits with the elbow bent for long periods of time and goes to straighten it. Normal EMG in 2019. He has known cervical disc disease. ASSESSMENT: M75.51 Bursitis of right shoulder (primary encounter diagnosis) M25.511 Acute pain of right shoulder M54.2, G89.29 Chronic neck pain R20.0 Numbness of hand M50.30 DDD (degenerative disc disease), cervical PLAN: Seems as though it is a little bit of right shoulder bursitis, we discussed getting him on an oral anti-inflammatory paired with an oral steroid. If pain persist he can follow-up we can try a right shoulder corticosteroid injection. Difficult to say whether he is getting numbness in his pinkies from ulnar neuropathy at the elbow or whether it is from his cervical disc disease. We will try some physical therapy for his neck, if the numbness persists we will get some ultrasounds of both elbows. Patient agrees to plan. Mr. Bonnie Martinez was advised as to contrast therapies and/or to take analgesics/anti-inflammatories as needed and all contraindications were reviewed. OBJECTIVE: Mr. Bonnie Martinez is a pleasant 67 year old in no apparent distress. Gen:There were no vitals taken for this visit. nl development, obese, no deformities ENT: Normocephalic, normal hearing, moist mucosa CV: Pulses:Radial= 2+ and symmetric, capillary refill < 2 secs, no peripheral edema/varicosities Skin: no rash, bruising or lesions. Good turgor. Psych: cooperative and appropriate, alert and oriented x 3, good mood and affect. Musculoskeletal: Supple range of motion of the cervical spine without pain. Spurling signs are negative. No atrophy of the deltoid and shoulder musculature. Right shoulder is nontender to palpation over the SC joint, clavicle and AC joint. No tenderness to palpation over the posterior shoulder, nontender at anterior lateral corner of the shoulder and greater tuberosity. Mild tenderness at the bicipital groove and coracoid. Active range of motion is 165 degrees of forward elevation, 60 degrees external rotation, and internal rotation to the lower lumbar spine. Passive range of motion is 165 degrees, 60 degrees, respectively. No laxity with anterior and posterior stress. Negative Neer and positive Mcleod impingement signs. 5/5 strength with supraspinatus, infraspinatus and subscapularis. Sensation is intact in the axillary, radial, median and ulnar nerve distribution Imaging: IMPRESSION: Cervical spine degenerative changes with multilevel disc space narrowing and bilateral neural foraminal narrowing. Lead Tinner: [facility] Transcribe Date/Time: Nov 21 2022 11:36A Dictated by : JEANNETTE TUCKER MD This examination was interpreted and the report reviewed and electronically signed by: JEANNETTE TUCKER MD on Nov 21 2022 11:43AM EST Results-Findings * * *Final Report* * * DATE OF EXAM: Nov 20 2022 11:21AM WOX [id number] - XR CERVICAL 4V AP/LAT/OBL / PROCEDURE REASON: multiple diagnoses * * * * Physician Interpretation * * * * EXAM TITLE: XR CERVICAL 4V AP/LAT/OBL EXAM DATE/TIME: 11/20/2022 11:21 AM COMPARISON: None. CLINICAL INDICATION/HISTORY: Neck pain. TECHNIQUE: AP, lateral and bilateral views of the cervical spine are presented. FINDINGS: No fractures or subluxations are noted. C5-6 and C6-7 disc is then narrowing is demonstrated. There is mild to moderate osteophyte formation. Bilateral C5-6 and left C6-7 neural foraminal narrowing is demonstrated. Degenerative changes involving the bilateral Luschka joints (more content not included)... [facility] 01-15-2023 History of Present illness Narrative Jasmina Reyes PA-C Department of Orthopaedics [facility] [address] [facility] [address] Dept: [phone] Dept January 15, [address] Justine Leary for an opinion regarding right shoulder pain. My final recommendations will be communicated back to the requesting physician by way of shared Medical record or letter to requesting physician via [place] mail. CHIEF COMPLAINT: New of the Right Shoulder (Right shoulder pain/Referred by Thelma Leary, [employer]/[place] 11/20/2022/Last seen by BP 02/24/2019 bilateral ulnar nerve neuropathy ) Mr. Bonnie Martinez is a 67 year old male who presents with pain in the right shoulder which has been bothering him for the past 6 months. No known injury. Pain is worse when he tries to reach behind his back or to reach overhead. Pain today is a 1 out of 10 aching but it can get as bad as a 10 out of 10. He is not taking any type of oral anti-inflammatory. Pain does not radiate down the arm. Has no issues with sleeping. He is right-hand dominant, he is retired, enjoys riding his motorcycle for long trips in the summer. He also complains of some numbness in both of his pinkies, mostly at night. He is also getting a snapping in his left elbow if he sits with the elbow bent for long periods of time and goes to straighten it. Normal EMG in 2019. He has known cervical disc disease. ASSESSMENT: M75.51 Bursitis of right shoulder (primary encounter diagnosis) M25.511 Acute pain of right shoulder M54.2, G89.29 Chronic neck pain R20.0 Numbness of hand M50.30 DDD (degenerative disc disease), cervical PLAN: Seems as though it is a little bit of right shoulder bursitis, we discussed getting him on an oral anti-inflammatory paired with an oral steroid. If pain persist he can follow-up we can try a right shoulder corticosteroid injection. Difficult to say whether he is getting numbness in his pinkies from ulnar neuropathy at the elbow or whether it is from his cervical disc disease. We will try some physical therapy for his neck, if the numbness persists we will get some ultrasounds of both elbows. Patient agrees to plan. Mr. Bonnie Martinez was advised as to contrast therapies and/or to take analgesics/anti-inflammatories as needed and all contraindications were reviewed. OBJECTIVE: Mr. Bonnie Martinez is a pleasant 67 year old in no apparent distress. Gen:There were no vitals taken for this visit. nl development, obese, no deformities ENT: Normocephalic, normal hearing, moist mucosa CV: Pulses:Radial= 2+ and symmetric, capillary refill < 2 secs, no peripheral edema/varicosities Skin: no rash, bruising or lesions. Good turgor. Psych: cooperative and appropriate, alert and oriented x 3, good mood and affect. Musculoskeletal: Supple range of motion of the cervical spine without pain. Spurling signs are negative. No atrophy of the deltoid and shoulder musculature. Right shoulder is nontender to palpation over the SC joint, clavicle and AC joint. No tenderness to palpation over the posterior shoulder, nontender at anterior lateral corner of the shoulder and greater tuberosity. Mild tenderness at the bicipital groove and coracoid. Active range of motion is 165 degrees of forward elevation, 60 degrees external rotation, and internal rotation to the lower lumbar spine. Passive range of motion is 165 degrees, 60 degrees, respectively. No laxity with anterior and posterior stress. Negative Neer and positive Mcleod impingement signs. 5/5 strength with supraspinatus, infraspinatus and subscapularis. Sensation is intact in the axillary, radial, median and ulnar nerve distribution Imaging: IMPRESSION: Cervical spine degenerative changes with multilevel disc space narrowing and bilateral neural foraminal narrowing. Lead Tinner: [facility] Transcribe Date/Time: Nov 21 2022 11:36A Dictated by : JEANNETTE TUCKER MD This examination was interpreted and the report reviewed and electronically signed by: JEANNETTE TUCKER MD on Nov 21 2022 11:43AM EST Results-Findings * * *Final Report* * * DATE OF EXAM: Nov 20 2022 11:21AM WOX [id number] - XR CERVICAL 4V AP/LAT/OBL / PROCEDURE REASON: multiple diagnoses * * * * Physician Interpretation * * * * EXAM TITLE: XR CERVICAL 4V AP/LAT/OBL EXAM DATE/TIME: 11/20/2022 11:21 AM COMPARISON: None. CLINICAL INDICATION/HISTORY: Neck pain. TECHNIQUE: AP, lateral and bilateral views of the cervical spine are presented. FINDINGS: No fractures or subluxations are noted. C5-6 and C6-7 disc is then narrowing is demonstrated. There is mild to moderate osteophyte formation. Bilateral C5-6 and left C6-7 neural foraminal narrowing is demonstrated. Degenerative changes involving the bilateral Luschka joints. The prevertebral soft tissues are normal. IMPRESSION: No acute osseous abnormality Lead Tinner: [facility] Transcribe Date/Time: Nov 21 2022 4:33P Dictated by : SHELIA HIGGINS MD This examination was interpreted and the report reviewed and electronically signed by: SHELIA HIGGINS MD on Nov 21 2022 4:34PM EST Results-Findings * * *Final Report* * * DATE OF EXAM: Nov 20 2022 11:21AM WOX [id number] - XR SHLDR >/=3V AP/SHARA AP/OTHR RT / PROCEDURE REASON: Acute pain of right shoulder * * * * Physician Interpretation * * * * EXAMINATION: XR SHLDR >/=3V AP/SHARA AP/OTHR RT CLINICAL HISTORY: Right shoulder pain Technique: XR SHLDR >/=3V AP/SHARA AP/OTHR RT -- RIGHT with 3 views on 3 images Comparison: X-ray right shoulder 10/14/2008 RESULT: No acute fracture or dislocation. Joint spaces are maintained. EMG 2019 Extensive electrodiagnostic examination of the right upper extremity and related cervical paraspinals, and additional studies of the left upper extremity, reveals no significant abnormalities. In particular, there is neither evidence of a right cervical motor radiculopathy, ulnar mononeuropathy nor right median neuropathy at or distal to the wrist (carpal tunnel syndrome). Supporting Subjective Information Below: Past Surgical History: PAST SURGICAL HISTORY Procedure Laterality Date PAST SURGICAL HISTORY OF pilondal cyst PAST SURGICAL HISTORY OF right 4th and 5th injury-[facility] PAST SURGICAL HISTORY OF Right 1985 right 4th and 5th fingers repaired following injury Medications: Current Outpatient Medications Medication Sig predniSONE (DELTASONE) 10 mg tablet 6 tabs po day 1, then 5 tabs day 2, 4 tabs day 3, 3 tabs day 4, 2 tabs day 5, 1 tab day 6. diclofenac, EC, (VOLTAREN) 75 mg EC tablet Take 1 tablet by mouth two times a day. FOR PAIN No current facility-administered medications for this visit. Allergies: Erythromycin Base ROS: General (negative for fatigue, malaise, weight loss/gain) HEENT (negative for headache, earache, recent vision changes, sinus pain, sore throat) Respiratory (no recent shortness of breath, hemoptysis) CV (negative for chest tightness, palpitations) Musculoskeletal (see HPI) Psych (no depression, anxiety) This note was partially generated using Vormetric voice recognition system, and there may be some incorrect words, spellings, and punctuation that were not noted in checking the note before saving. Jasmina Reyes PA-C Patient presents with: Right Shoulder - New: Right shoulder pain Referred by Thelma Leary APRN Xray 11/20/2022 Last seen by BP 02/24/2019 bilateral ulnar nerve neuropathy Patient states certain movements make his right shoulder pain go to a 10/10. Also states his left elbow has been bothering him - like it gets stuck. His fiance is here with him today. AMB ROOMING INTAKE FLOWSHEET DATA Pain Pain Level: 1 (certain movements 10/10) Pain Location: Shoulder-Right Description: Dull (10/10 sharp) Duration Amount of Time: 9 Duration Units: Months Frequency: Continuous Intervention/Comfort measure: Reposition Daria Jaramillo RN documented in this encounter [facility] 01-15-2023 Note HNO ID: [id number] Author: Daria Jaramillo RN Service: ? Author Type: Registered Nurse Type: Progress Notes Filed: 01/15/2023 1:59 PM Note Text: Patient presents with: Right Shoulder - New: Right shoulder pain Referred by Thelma Leary APRN Xray 11/20/2022 Last seen by BP 02/24/2019 bilateral ulnar nerve neuropathy Patient states certain movements make his right shoulder pain go to a 10/10. Also states his left elbow has been bothering him - like it gets stuck. His fiance is here with him today. AMB ROOMING INTAKE FLOWSHEET DATA Pain Pain Level: 1 (certain movements 10/10) Pain Location: Shoulder-Right Description: Dull (10/10 sharp) Duration Amount of Time: 9 Duration Units: Months Frequency: Continuous Intervention/Comfort measure: Reposition Daria Jaramillo RN [facility] 11-24-2022 Miscellaneous Notes Patient returned call, he is going to hold of on PT and meloxicam. He would like to continue monitoring the PSA for now. Called and left message on patients voicemail to return call to the office and ask to speak with a triage nurse. Sumaya Valadez Ma Can you please call the patient and let him know that I reviewed his x-ray and lab results. X-ray of the shoulder was normal, however he may consider doing physical therapy to help improve range of motion and pain. Please let me know what he prefers. X-ray of the neck does show some degenerative changes and disc space narrowing as well as bilateral femoral narrowing. This is consistent with arthritis. This is more than likely what is causing his symptoms and increased headache. He may consider starting a once daily arthritis medication such as meloxicam or even consider a consult with pain management and discuss possible neck injection to help reduce inflammation and pain. PSA was elevated, the free PSA percentage was 16%. He may consider seeing a urologist for further evaluation or we can continue to monitor levels. Thank you. Justine Leary APRN.UESEBIO documented in this encounter [facility] 11-20-2022 Instructions Justine Leary APRN.CNP - 11/20/2022 10:46 AM EDT Get labs completed today Complete xrays Scheduled with Orthopedics Continue to eat a well balanced diet and stay active. Follow up in 1 year or sooner as needed. Massage therapy may be helpful for neck/trap pain. documented in this encounter [facility] 11-20-2022 History of Present illness Narrative Bonnie Martinez is a 66 year old male here for a Medicare wellness visit. Health Risk Assessment In general, health is: Excellent Concerns with balance:Not at all Concerns with teeth or dentures:Not at all Concerns with sexual function:Not at all [place] anxious, stressed, angry, irritable, lonely, isolated, or had thoughts of hurting themself: Not at all Has little interest or pleasure in doing things: Not at all Bothered by feeling down, depressed, or hopeless: Not at all Needs help with grocery shopping, cooking, housework, bathing, grooming, dressing, eating, sitting or standing, walking, using the toilet, handling finances, taking medications, using the telephone, or driving: No Following safety precautions in the home environment and vehicle: removed throw rugs from floors, installed grab bars in the bathroom, handrails in stairwells, having adequate lighting, wearing seatbelt at all times?: Yes Smokes cigarettes, vapes, or chew tobacco: No Eats healthy foods including fruits, vegetables, whole grains, and fiber-rich foods: Nearly every day Number of days per week engages in exercise: 3 days Average alcohol consumption: 2-4 times a month Current Providers Specialists: I have reviewed specialist-related care of the patient in the medical record. Rt Shoulder: Dr. Britt Medical/Family history review Reviewed and updated problem list, medical/surgical/family/social history, medications, and allergies. Opioid use review Patient is not currently using opioids. Depression screening Depression Screening PHQ-2 Score PHQ-9 Score 11/16/2022 0 1 Depression screening tool completed and reviewed. Based on score and interview, patient is not at risk for depression. Screening tool discussed with patient, and I recommended no further intervention at this time. Cognitive screening Mini Cog Score: 5 Functional Observation Was the patient's timed Up & Go test unsteady or ? 12 seconds? No Advance Care Planning End of Life planning discussed, including patient's advanced directive wishes: Yes Measurements BP 130/84 Pulse 72 Resp 16 Ht 5' 7.52 (1.72m) Wt 206 lb (93.4kg) SpO2 97% BMI 31.77 kg/(m^2). Visual acuity (required for Welcome to Medicare): follows with optometry/ophthalmology Hearing Evaluation: hard of hearing, tried hearing aides in the past. Assessment/Plan Medicare annual wellness visit, initial (Z00.00) - Counseled on healthy diet and regular exercise - Fall avoidance information provided - 10-year prevention plan provided - Discussed need for and benefit of weight loss. BMI 31.77 kg/(m^2) This is a 66 year old male who presents today with: Patient presents with: Medicare Wellness Exam HISTORY OF PRESENT ILLNESS: Bonnie Martinez is a 66 year old male. Patient presents with: Medicare Wellness Exam Here in the office for extensive exam. Headache: In the past was taking Tylenol 3 for migraine headaches. Right Shoulder Pain: Started a couple of months ago. Cannot recall an injury. Had difficulty lifting arm initally. Pain with day to day activityies. Chronic neck pain: Leftside, chronic dull ache, will causes headaches and migraines, into the left eye. Using Tylenol #3 as needed for headaches. Colonoscopy: Cologuard completed in 2021, negative. PSA: WNL in 2021 Vaccines:Denies wanting any vaccines at this time. 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 No current facility-administered medications for this visit. FAMILY HISTORY Problem Relation Age of Onset Arthritis Mother other (Larynx cancer) Father other (hyperlipidemia) Father Social History Tobacco Use Smoking status: Never Smokeless tobacco: Never Substance Use Topics Alcohol use: Yes Comment: rarely REVIEW OF SYSTEMS GENERAL: No weight loss, malaise or fevers/chills HEENT: Negative for frequent or significant headaches, No changes in hearing or vision. NECK: Negative for lumps, goiter, pain and significant neck swelling RESPIRATORY: Negative for cough, hemoptysis, wheezing, dyspnea or shortness of breath CARDIOVASCULAR: Negative for chest pain, leg swelling, orthopnea, or palpitations GI: No nausea, vomiting, or diarrhea/constipation. No hematochezia/melena. No heartburn or reflux symptoms. : No history of dysuria, frequency or incontinence MUSCULOSKELETAL: Negative for joint pain or swelling. SKIN: Negative for lesions, rash, and itching ENDOCRINE: Negative for cold or heat intolerance, polyuria, polydipsia and goiter NEURO: No history of headaches, syncope, paralysis, seizures or tremors MOOD: Negative for depression, anxiety, or suicidal ideation. EXAM: There were no vitals taken for this visit. PHYSICAL EXAM: General Appearance: Well appearing, alert, in no acute distress, well-hydrated, well nourished. Skin: Skin color, texture, turgor normal, no suspicious rashes or lesions. Head: Normocephalic, no masses, lesions, tenderness or abnormalities. Eyes: Anicteric sclera. Extraocular movements are intact. Lungs: Lungs clear to auscultation. No wheezing, rhonchi, rales. Heart: RRR without murmur, gallop, or rubs. No ectopy. Extremities: No deformities, edema, skin discoloration, clubbing or cyanosis. Good capillary refill. Musculoskeletal: Limited ROM of right shoulder, tenderness noted along the medial scapula, negative empty can/Apley's test. Cervical spine limited range of motion, moderate trapezius muscle tension noted, tenderness noted to the pectoralis minor. Peripheral Pulses: Normal, Capillary refill <2secs, strong peripheral pulses, Pulses palpable. Neurologic: Gait normal. Sensation grossly intact. ASSESSMENT/PLAN: 1. Medicare annual wellness visit, initial - ICD9: V70.0, ICD10: Z00.00 (primary diagnosis) - Counseled on healthy diet and regular exercise - Discussed need for and benefit of weight loss. BMI 31.77 kg/(m^2) - Risks/benefits of prostate cancer screening discussed. screening PSA ordered - Depression screening tool completed and reviewed with patient. Based on score and interview, patient is not at risk for depression and recommended no further intervention at this time. - Follow up for annual exam in one year - COMP METABOLIC PANEL 2. Chronic neck pain - ICD9: 723.1, 338.29, ICD10: M54.2, G89.29 - Get xrays completed. - Continue supportive care at home, NSAIDS, and stretching. - XR CERV OTHER 4V AP/LAT/OBL - CONSULT TO ORTHOPAEDICS 3. Acute pain of right shoulder - ICD9: 719.41, ICD10: M25.511 - XR SHOULDER GENERAL 3V OR MORE AP/TRUE AP/OTHER RIGHT - CONSULT TO ORTHOPAEDICS 4. Hyperlipidemia with target LDL less than 100 - ICD9: 272.4, ICD10: E78.5 - LIPID PANEL BASIC 5. Elevated PSA - ICD9: 790.93, ICD10: R97.20 - PSA FREE Follow-up in 1 year or sooner pending test results. Discussed treatment plan and patient voices understanding. Patient's questions answered appropriately. Medications and potential side effects were discussed and patient voices understanding. Justine Leary APRN.CNP This note was partially generated using Vormetric voice recognition system. Note was reviewed for accuracy. There may be minor misspellings or grammar miscues with Vormetric voice recognition. documented in this encounter [facility] 10-10-2021 Miscellaneous Notes Pt notified of results via Ar[employer]. If questions to contact the office. Sumaya Valadez Ma Can you please call the patient and let him know that his Cologuard was negative. Repeat screening will be due in 3 years. Please let me know if he has any questions. Thank you. Justine Leary APRN.CNP documented in this encounter [facility] 10-01-2021 History of Present illness Narrative View External Lab - Miscellaneous Lab [ID [id number]] documented in this encounter [facility] 09-30-2021 Miscellaneous Notes Patient notified of results, verbalizes understanding of instructions. Jesse Gonzalez LPN Can you please call the patient and let him know that I reviewed his lab results that were completed at [facility], labs were all relatively normal however good cholesterol was just slightly low. I would recommend increasing good fats in the diet, increasing vegetables, and get some form of exercise. A1c was elevated at 5.8 which is considered prediabetes. I would work on lifestyle changes mentioned above to help improve this. Can you please let the patient know that his PSA test results if drawn were not sent over to our office. Please let me know if he has any questions. Thank you. Justine Leary APRN.EUSEBIO Office received outside lab results for pt. Please review and advise. View External Lab - Miscellaneous Lab [ID [id number]] Sumaya Valadez Ma documented in this encounter [facility] 09-22-2021 Instructions Justine Leary APRN.CNP - 09/22/2021 10:46 AM EDT 1.) Get fasting labs completed. 2.) Stool kit will come to your house in the mail. 3.) Continue to use Tylenol 3 as needed for migraine headache. 4.) Follow up in 1 year or sooner as needed. Get 3rd Covid Booster documented in this encounter [facility] 09-22-2021 History of Present illness Narrative This is a 65 year old male who presents today with: Patient presents with: Follow Up: mirgrains HISTORY OF PRESENT ILLNESS: Bonnie Martinez is a 65 year old male. Patient presents with: Follow Up: mirgrains Here in the office for medication refills and general follow up. Requesting Tylenol 3 refill for Migraines. Last filled by PCP in 2019. Refers that he has tried several medications in the past which were not effective. Currently getting about 1-3 migraines every 5-6 months. Refers that a times it is random. Pain starts at the back of the heard and radiates up to the eye. Will have photophobia and nausea. Will normally have to lay down in a dark room. Unsure if he has seen neurologist in the past. Refers he is retired now and headaches seem to be better. Denies any increased sadness, anxiety, or SI/HI. Due for Covid booster, agreeable to have completed. Due for labs and agreeable to have cologuard ordered. 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 lisinopril (ZESTRIL, PRINIVIL) 10 mg tablet Take 1 tablet by mouth once daily. (Patient taking differently: Take 10 mg by mouth as needed. ) naproxen sodium (ALEVE) 220 mg tablet Take 440 mg by mouth daily at bedtime. No current facility-administered medications for this visit. FAMILY HISTORY Problem Relation Age of Onset Arthritis Mother other (Larynx cancer) Father other (hyperlipidemia) Father Social History Tobacco Use Smoking status: Never Smoker Smokeless tobacco: Never Used Substance Use Topics Alcohol use: Yes Comment: rarely Drug use: Not on file REVIEW OF SYSTEMS GENERAL: No weight loss, malaise or fevers/chills HEENT: Negative for frequent or significant headaches, No changes in hearing or vision. NECK: Negative for lumps, goiter, pain and significant neck swelling RESPIRATORY: Negative for cough, hemoptysis, wheezing, dyspnea or shortness of breath CARDIOVASCULAR: Negative for chest pain, leg swelling, orthopnea, or palpitations GI: No nausea, vomiting, or diarrhea/constipation. No hematochezia/melena. No heartburn or reflux symptoms. : No history of dysuria, frequency or incontinence MUSCULOSKELETAL: Negative for joint pain or swelling. SKIN: Negative for lesions, rash, and itching ENDOCRINE: Negative for cold or heat intolerance, polyuria, polydipsia and goiter NEURO: + Headache MOOD: Negative for depression, anxiety, or suicidal ideation. EXAM: BP (P) 128/84 Pulse (P) 73 Resp (P) 16 Wt (P) 93.9 kg (207 lb) SpO2 (P) 97% BMI (P) 31.47 kg/m PHYSICAL EXAM: General Appearance: Well appearing, alert, in no acute distress, well-hydrated, well nourished.. Skin: Skin color, texture, turgor normal, no suspicious rashes or lesions. Head: Normocephalic, no masses, lesions, tenderness or abnormalities. Eyes: Anicteric sclera. Pupils are equally round and reactive to light. Extraocular movements are intact. . Lungs: Lungs clear to auscultation. No wheezing, rhonchi, rales.. Heart: RRR without murmur, gallop, or rubs. No ectopy. Extremities: No deformities, edema, skin discoloration, clubbing or cyanosis. Good capillary refill. . Peripheral Pulses: Normal, Capillary refill <2secs, strong peripheral pulses, Pulses palpable. Neurologic: Gait normal. Reflexes normal and symmetric. Sensation grossly intact., Negative findings: mental status intact, cranial nerves 2-12 intact, muscle strength normal. PDMP website checked and validated. All prescriptions have been APPROPRIATELY filled. No suspicious activity was identified. 09/22/2021 by Justine Leary APRN.[employer] ASSESSMENT/PLAN: 1. Nonintractable headache, unspecified chronicity pattern, unspecified headache type - ICD9: 784.0, ICD10: R51.9 (primary diagnosis) - Refill provided. - OARRS report checked. - ACETAMINOPHEN 300 MG-CODEINE 30 MG TABLET - COMP METABOLIC PANEL 2. Screening for colon cancer - ICD9: V76.51, ICD10: Z12.11 - COLOGUARD 3. Screening cholesterol level - ICD9: V77.91, ICD10: Z13.220 - LIPID PANEL BASIC 4. Screening for diabetes mellitus - ICD9: V77.1, ICD10: Z13.1 - HGB A1C 5. Elevated PSA - ICD9: 790.93, ICD10: R97.20 - Elevated PSA in the past. - PSA FREE 6. Encounter for immunization - ICD9: V03.89, ICD10: Z23 - VIS sheet provided. - [place]er-[place]os[place] COVID-19 VACCINE, AGE 12+ YR (LOZANO TOP) Follow up in 1 year or sooner as needed. Discussed treatment plan and patient voices understanding. Patient's questions answered appropriately. Medications and potential side effects were discussed and patient voices understanding. Justine Leary APRN.[employer] This note was partially generated using Vormetric voice recognition system. Note was reviewed for accuracy. There may be minor misspellings or grammar miscues with Vormetric voice recognition. documented in this encounter [facility] Evaluation note Diagnosis Nonintractable headache, unspecified chronicity pattern, unspecified headache type- Primary Screening for colon cancer Special screening for malignant neoplasms, colon Screening cholesterol level Screening for lipoid disorders Screening for diabetes mellitus Elevated PSA Elevated prostate specific antigen (PSA) Encounter for immunization Need for other specified prophylactic vaccination against single bacterial disease [facility] Medicare annual wellness visit, initial- Primary Routine general medical examination at a health care facility Chronic neck pain Cervicalgia Acute pain of right shoulder Hyperlipidemia with target LDL less than 100 Other and unspecified hyperlipidemia Elevated PSA Elevated prostate specific antigen (PSA) [facility] Diagnosis Bursitis of right shoulder- Primary Disorders of bursae and tendons in shoulder region, unspecified Acute pain of right shoulder Chronic neck pain Cervicalgia Numbness of hand Disturbance of skin sensation DDD (degenerative disc disease), cervical Degeneration of cervical intervertebral disc [facility] Diagnosis Numbness of hand- Primary Disturbance of skin sensation DDD (degenerative disc disease), cervical Degeneration of cervical intervertebral disc [facility] Diagnosis Acute pain of right shoulder- Primary Chronic neck pain Cervicalgia [facility] Diagnosis Acute pain of right shoulder- Primary Chronic neck pain Cervicalgia [facility] Diagnosis Pain in both knees, unspecified chronicity- Primary Bilateral hip pain Pain in joint, pelvic region and thigh [facility] Diagnosis History of flank pain- Primary Personal history of other specified diseases Dark urine Other nonspecific finding on examination of urine Elevated PSA Elevated prostate specific antigen (PSA) [facility] Diagnosis Elevated PSA- Primary Elevated prostate specific antigen (PSA) [facility]* Diagnosis History of flank pain Personal history of other specified diseases Dark urine Other nonspecific finding on examination of urine [facility]* Diagnosis Kidney stone- Primary Calculus of kidney Elevated PSA Elevated prostate specific antigen (PSA) Flank pain Abdominal pain, unspecified site Encounter for observation for other suspected diseases and conditions ruled out [facility] Diagnosis Pain in both knees, unspecified chronicity Bilateral hip pain Pain in joint, pelvic region and thigh [facility]* Diagnosis Kidney stone Calculus of kidney Flank pain Abdominal pain, unspecified site [facility]* Diagnosis Kidney stone Calculus of kidney Flank pain Abdominal pain, unspecified site documented in this encounter [facility] note* Diagnosis Bilateral hip pain Pain in joint, pelvic region and thigh [facility]* Diagnosis Acute pain of right shoulder Chronic neck pain Cervicalgia [facility]* Diagnosis Kidney stones [N20.0]- Primary Calculus of kidney [facility]* Diagnosis Kidney stone- Primary Calculus of kidney documented in this encounter [facility] for referral (narrative)* Diagnostic Procedure Only (Routine) - Closed Specialty Diagnoses / Procedures Referred By Roberto t Referred To Contact XR IMAGING Diagnoses Bilateral hip pain Procedures XR HIP BILATERAL 5V PEL/AP/LAT EACH HIP RADEX HIPS BILATERAL WITH PELVIS MINIMUM 5 VIEWS Justine Leary APRN.[employer] [address] [place] [address] [place] [address] Referral ID Status Reason Start Date Expiration Date V isits Requested Visits Authorized [id number] Closed Auto-Generate d Referral 09/12/2023 10/11/2024 1 1 * Consult, Test, Treat (Routine) - Authorized Specialty Diagnoses / Procedures Referred By Contac t Referred To Contact Orthopedics Diagnoses Bilateral hip pain Procedures CONSULT TO ORTHOPAEDICS OFFICE/OUTPATIENT [facility] 60 MINUTES Justine Leary APRN.[employer] [address] [place] [address] Referral ID Status Reason Start Date Expiration Date Visits Requested Visits Authorized [id number] Authorized PCP Requested Referral 09/12/2023 09/11/2024 1 1 * Diagnostic Procedure Only (Routine) - Closed Specialty Diagnoses / Procedures Referred By Contac t Referred To Contact XR IMAGING Diagnoses Pain in both knees, unspecified chronicity Procedures XR KNEE GENERAL 4V AP BOTH/PA BOTH/LAT/MERC BILATERAL RADIOLOGIC EXAM KNEE COMPLETE 4/MORE VIEWS Justine Leary APRN.[employer] [address] [place] [address] [place] [address] Referral ID Status Reason Start Date Expiration Date V isits Requested Visits Authorized [id number] Closed Auto-Generate d Referral 09/12/2023 10/11/2024 1 1 [facility] for referral (narrative)* Diagnostic Procedure Only (Routine) - Authorized Specialty Diagnoses / Procedures Referred By Contac t Referred To Contact US IMAGING Diagnoses History of flank pain Dark urine Procedures US KIDNEY/BLADDER US RETROPERITONEAL REAL TIME W/IMAGE COMPLETE Justine Leary APRN.[employer] [address] [place] [address] [place] [address] Referral ID Status Reason Start Date Expiration Date Visits Requested Visits Authorized [id number] Authorized Auto-Generat ed Referral 10/02/2023 10/31/2024 1 1 [facility] for referral (narrative)* Diagnostic Procedure Only (Routine) - New Request Specialty Diagnoses / Procedures Referred By Contac t Referred To Contact XR IMAGING Diagnoses Kidney stone Flank pain Procedures XR ABDOMEN 1V SUPINE RADIOLOGIC EXAM ABDOMEN 1 VIEW Patrice Edwards Jr., MD [address] [place] [address] [place] [address] Referral ID Status Reason Start Date Expiration Date Visits Requested Visits Authorized [id number] New Request Auto-Generat ed Referral 10/25/2023 11/23/2024 1 1 * MRI/CT (Routine) - Authorized Specialty Diagnoses / Procedures Referred By Richardac t Referred To Contact MR IMAGING Diagnoses Encounter for observation for other suspected diseases and conditions ruled out Procedures MRI PROSTATE WO/W IVCON MRI PELVIS W/O & W/CONTRAST MATERIAL Patrice Edwards Jr., MD [address] [place] [address] [place] [address] Referral ID Status Reason Start Date Expiration Date Visits Requested Visits Authorized [id number] Authorized Auto-Generat ed Referral 10/25/2023 11/23/2024 1 1 * MRI/CT (Routine) - Authorized Specialty Diagnoses / Procedures Referred By Contac t Referred To Contact CT IMAGING Diagnoses Kidney stone Flank pain Procedures CT FLANK WO IVCON CT ABD & PELVIS W/O CONTRAST Patrice Edwards Jr., MD [address] [place] [address] [address] [place] [address] Referral ID Status Reason Start Date Expiration Date Visits Requested Visits Authorized [id number] Authorized Auto-Generat ed Referral 10/25/2023 11/23/2024 1 1 [facility] for referral (narrative)* Diagnostic Procedure Only (Routine) - Closed Specialty Diagnoses / Procedures Referred By Contac t Referred To Contact XR IMAGING Diagnoses Bilateral hip pain Procedures XR HIP BILATERAL 5V PEL/AP/LAT EACH HIP RADEX HIPS BILATERAL WITH PELVIS MINIMUM 5 VIEWS Justine Leary APRN.[employer] [address] [place] [address] [place] [address] Referral ID Status Reason Start Date Expiration Date V isits Requested Visits Authorized [id number] Closed Auto-Generate d Referral 09/12/2023 10/11/2024 1 1 * Diagnostic Procedure Only (Routine) - Closed Specialty Diagnoses / Procedures Referred By Contac t Referred To Contact XR IMAGING Diagnoses Pain in both knees, unspecified chronicity Procedures XR KNEE GENERAL 4V AP BOTH/PA BOTH/LAT/MERC BILATERAL RADIOLOGIC EXAM KNEE COMPLETE 4/MORE VIEWS Justine Leary APRN.[employer] [address] [place] [address] [place] [address] Referral ID Status Reason Start Date Expiration Date V isits Requested Visits Authorized [id number] Closed Auto-Generate d Referral 09/12/2023 10/11/2024 1 1 [facility] for referral (narrative)* Diagnostic Procedure Only (Routine) - Closed Specialty Diagnoses / Procedures Referred By Contac t Referred To Contact XR IMAGING Diagnoses Chronic neck pain Procedures XR CERV OTHER 4V AP/LAT/OBL RADEX SPINE CERVICAL 4 OR 5 VIEWS Justine Leary APRN.[employer] [address] [place] [address] [place] [address] Referral ID Status Reason Start Date Expiration Date V isits Requested Visits Authorized [id number] Closed Auto-Generate d Referral 11/20/2022 12/20/2023 1 1 * Diagnostic Procedure Only (Routine) - Closed Specialty Diagnoses / Procedures Referred By Contac t Referred To Contact XR IMAGING Diagnoses Acute pain of right shoulder Procedures XR SHOULDER GENERAL 3V OR MORE AP/TRUE AP/OTHER RIGHT RADEX SHOULDER COMPLETE MINIMUM 2 VIEWS Justine Leary APRN.[employer] [address] [place] [address] [place] [address] Referral ID Status Reason Start Date Expiration Date V isits Requested Visits Authorized [id number] Closed Auto-Generate d Referral 11/20/2022 12/20/2023 1 1 [facility] for referral (narrative)* Diagnostic Procedure Only (Routine) - New Request Specialty Diagnoses / Procedures Referred By Contac t Referred To Contact XR IMAGING Diagnoses Kidney stone Procedures XR ABDOMEN 1V SUPINE RADIOLOGIC EXAM ABDOMEN 1 VIEW Patrice Edwards Jr., MD [address] [place] [address] [place] [address] Referral ID Status Reason Start Date Expiration Date Visits Requested Visits Authorized [id number] New Request Auto-Generat ed Referral 01/01/2025 1 1 [facility] for visit Narrative* Diagnostic Procedure Only (Routine) - Closed Specialty Diagnoses / Procedures Referred By Contac t Referred To Contact XR IMAGING Diagnoses Bilateral hip pain Procedures XR HIP BILATERAL 5V PEL/AP/LAT EACH HIP RADEX HIPS BILATERAL WITH PELVIS MINIMUM 5 VIEWS Justine Leary APRN.[employer] [address] [place] [address] [place] [address] Referral ID Status Reason Start Date Expiration Date V isits Requested Visits Authorized [id number] Closed Auto-Generate d Referral 09/12/2023 10/11/2024 1 1 [facility] for visit Narrative* Diagnostic Procedure Only (Routine) - Closed Specialty Diagnoses / Procedures Referred By Contac t Referred To Contact XR IMAGING Diagnoses Kidney stone Flank pain Procedures XR ABDOMEN 1V SUPINE RADIOLOGIC EXAM ABDOMEN 1 VIEW Patrice Edwards Jr., MD [address] [place] [address] [place] [address] Referral ID Status Reason Start Date Expiration Date V isits Requested Visits Authorized [id number] Closed Auto-Generate d Referral 10/25/2023 11/23/2024 1 1 [facility] for visit Narrative* Diagnostic Procedure Only (Routine) - Closed Specialty Diagnoses / Procedures Referred By Contac t Referred To Contact XR IMAGING Diagnoses Chronic neck pain Procedures XR CERV OTHER 4V AP/LAT/OBL RADEX SPINE CERVICAL 4 OR 5 VIEWS Justine Leary APRN.[employer] [address] [place] [address] [place] [address] Referral ID Status Reason Start Date Expiration Date V isits Requested Visits Authorized [id number] Closed Auto-Generate d Referral 11/20/2022 12/20/2023 1 1 [facility] Instructions Name Dates Details Patient Instructions Indication:Abnormal glucose tolerance test Start:11-Jun-2013 Instruction Type:Provider Instructions for Treatment Patient Instructions Indication:Neoplasm of uncertain behavior of skin Start:12-Sep-2012 Instruction Type:Provider Instructions for Treatment Patient Instructions Indication:Abnormal glucose tolerance test Start:08-Jul-2012 Instruction Type:Provider Instructions for Treatment Patient Instructions Indication:Neoplasm of uncertain behavior of skin Start:25-Mar-2012 Instruction Type:Provider Instructions for Treatment Patient Instructions Indication:Abnormal glucose tolerance test Start:08-Jan-2012 Instruction Type:Provider Instructions for Treatment Patient Instructions Indication:Benign neoplasm of skin Start:08-Nov-2011 Instruction Type:Provider Instructions for Treatment Reason for Referral Specialty Diagnoses / Procedures Referred By Contac t Referred To Contact Orthopedics Diagnoses Acute pain of right shoulder Chronic neck pain Procedures CONSULT TO ORTHOPAEDICS OFFICE/OUTPATIENT [facility] 60-74 MINUTES Justine Leary APRN.[employer] [address] [place] [address] Referral ID Status Reason Start Date Expiration Date Visits Requested Visits Authorized [id number] Authorized PCP Requested Referral 11/20/2022 11/20/2023 1 1 Specialty Diagnoses / Procedures Referred By Contac t Referred To Contact XR IMAGING Diagnoses Chronic neck pain Procedures XR CERV OTHER 4V AP/LAT/OBL RADEX SPINE CERVICAL 4 OR 5 VIEWS Justine Leary APRN.[employer] [address] [place] [address] [place] [address] Referral ID Status Reason Start Date Expiration Date V isits Requested Visits Authorized [id number] Closed Auto-Generate d Referral 11/20/2022 12/20/2023 1 1 Specialty Diagnoses / Procedures Referred By Contac t Referred To Contact XR IMAGING Diagnoses Acute pain of right shoulder Procedures XR SHOULDER GENERAL 3V OR MORE AP/TRUE AP/OTHER RIGHT RADEX SHOULDER COMPLETE MINIMUM 2 VIEWS Justine Leary, TARAS.[employer] [address] [place] [address] [place] [address] Referral ID Status Reason Start Date Expiration Date V isits Requested Visits Authorized [id number] Closed Auto-Generate d Referral 11/20/2022 12/20/2023 1 1 Specialty Diagnoses / Procedures Referred By Contac t Referred To Contact [facility] Diagnoses Numbness of hand DDD (degenerative disc disease), cervical Procedures CONSULT TO PHYSICAL THERAPY PHYSICAL THERAPY EVALUATION HIGH COMPLEX 45 MINS Jasmina Reyes PA-C [address] [place] [address] [facility] [address] [place] [address] Referral ID Status Reason Start Date Expiration Date Visits Requested Visits Authorized [id number] Pending Review PCP Requested Referral Auto-Generate d Referral 01/15/2024 99 99 Specialty Diagnoses / Procedures Referred By Contac t Referred To Contact US IMAGING Diagnoses Numbness of hand Procedures US ELBOW LEFT US LMTD JOINT/OTH NONVASC XTR STRUX R-T W/IMG Jasmina Reyes PA-C [address] [place] [address] [place] [address] Referral ID Status Reason Start Date Expiration Date Visits Requested Visits Authorized [id number] Pending Review Auto-Generat ed Referral 3 02/14/2024 1 1 Specialty Diagnoses / Procedures Referred By Contac t Referred To Contact US IMAGING Diagnoses Numbness of hand Procedures US ELBOW RIGHT US LMTD JOINT/OTH NONVASC XTR STRUX R-T W/IMG Jasmina Reyes PA-C [address] [place] [address] [place] [address] Referral ID Status Reason Start Date Expiration Date Visits Requested Visits Authorized [id number] Pending Review Auto-Generat ed Referral 3 02/14/2024 1 1 Specialty Diagnoses / Procedures Referred By Contac t Referred To Contact Urology Diagnoses Elevated PSA Procedures CONSULT TO UROLOGY OFFICE/OUTPATIENT [facility] HIGH MDM 60 MINUTES Justine Leary, [employer] [address] [place] [address] Referral ID Status Reason Start Date Expiration Date Visits Requested Visits Authorized [id number] Authorized PCP Requested Referral 10/03/2023 10/02/2024 1 1 Specialty Diagnoses / Procedures Referred By Contac t Referred To Contact CT IMAGING Diagnoses Kidney stone Flank pain Procedures CT FLANK WO IVCON CT ABD & PELVIS W/O CONTRAST Patrice Edwards Jr., MD [address] [place] [address] [place] [address] Referral ID Status Reason Start Date Expiration Date V isits Requested Visits Authorized [id number] Closed Auto-Generate d Referral 10/25/2023 11/23/2024 1 1 Summary Purpose Family History No Family History Records Found Advance Directives No Advanced Directives Records FoundNo Advanced Directives Records Found Additional Source Comments Source Comments (unrecognize d section and content) In the event this informatio n is protected by the Federal Confidentiality of Alcohol and Drug Abuse Patient Records regulations: The Federal rules restrict any use of the information to criminally investigate or prosecute any alcohol or drug abuse patient.[facility] the event this information is protected by the Federal Confidentiality of Alcohol and Drug Abuse Patient Records regulations: The Federal rules restrict any use of the information to criminally investigate or prosecute any alcohol or drug abuse patient.[facility] the event this information is protected by the Federal Confidentiality of Alcohol and Drug Abuse Patient Records regulations: The Federal rules restrict any use of the information to criminally investigate or prosecute any alcohol or drug abuse patient.[facility] the event this information is protected by the Federal Confidentiality of Alcohol and Drug Abuse Patient Records regulations: The Federal rules restrict any use of the information to criminally investigate or prosecute any alcohol or drug abuse patient.[facility] the event this information is protected by the Federal Confidentiality of Alcohol and Drug Abuse Patient Records regulations: The Federal rules restrict any use of the information to criminally investigate or prosecute any alcohol or drug abuse patient.[facility] the event this information is protected by the Federal Confidentiality of Alcohol and Drug Abuse Patient Records regulations: The Federal rules restrict any use of the information to criminally investigate or prosecute any alcohol or drug abuse patient.[facility] the event this information is protected by the Federal Confidentiality of Alcohol and Drug Abuse Patient Records regulations: The Federal rules restrict any use of the information to criminally investigate or prosecute any alcohol or drug abuse patient.[facility] the event this information is protected by the Federal Confidentiality of Alcohol and Drug Abuse Patient Records regulations: The Federal rules restrict any use of the information to criminally investigate or prosecute any alcohol or drug abuse patient.[facility] the event this information is protected by the Federal Confidentiality of Alcohol and Drug Abuse Patient Records regulations: The Federal rules restrict any use of the information to criminally investigate or prosecute any alcohol or drug abuse patient.[facility] the event this information is protected by the Federal Confidentiality of Alcohol and Drug Abuse Patient Records regulations: The Federal rules restrict any use of the information to criminally investigate or prosecute any alcohol or drug abuse patient.[facility] the event this information is protected by the Federal Confidentiality of Alcohol and Drug Abuse Patient Records regulations: The Federal rules restrict any use of the information to criminally investigate or prosecute any alcohol or drug abuse patient.[facility] the event this information is protected by the Federal Confidentiality of Alcohol and Drug Abuse Patient Records regulations: The Federal rules restrict any use of the information to criminally investigate or prosecute any alcohol or drug abuse patient.[facility] the event this information is protected by the Federal Confidentiality of Alcohol and Drug Abuse Patient Records regulations: The Federal rules restrict any use of the information to criminally investigate or prosecute any alcohol or drug abuse patient.[facility] the event this information is protected by the Federal Confidentiality of Alcohol and Drug Abuse Patient Records regulations: The Federal rules restrict any use of the information to criminally investigate or prosecute any alcohol or drug abuse patient.[facility] the event this information is protected by the Federal Confidentiality of Alcohol and Drug Abuse Patient Records regulations: The Federal rules restrict any use of the information to criminally investigate or prosecute any alcohol or drug abuse patient.[facility] the event this information is protected by the Federal Confidentiality of Alcohol and Drug Abuse Patient Records regulations: The Federal rules restrict any use of the information to criminally investigate or prosecute any alcohol or drug abuse patient.[facility] the event this information is protected by the Federal Confidentiality of Alcohol and Drug Abuse Patient Records regulations: The Federal rules restrict any use of the information to criminally investigate or prosecute any alcohol or drug abuse patient.[facility] Hospital[facility] the event this information is protected by the Federal Confidentiality of Alcohol and Drug Abuse Patient Records regulations: The Federal rules restrict any use of the information to criminally investigate or prosecute any alcohol or drug abuse patient.[facility] Hospital[facility] the event this information is protected by the Federal Confidentiality of Alcohol and Drug Abuse Patient Records regulations: The Federal rules restrict any use of the information to criminally investigate or prosecute any alcohol or drug abuse patient.[facility] HospitalIn the event this information is protected by the Federal Confidentiality of Alcohol and Drug Abuse Patient Records regulations: The Federal rules restrict any use of the information to criminally investigate or prosecute any alcohol or drug abuse patient.[facility]In the event this information is protected by the Federal Confidentiality of Alcohol and Drug Abuse Patient Records regulations: The Federal rules restrict any use of the information to criminally investigate or prosecute any alcohol or drug abuse patient.[facility] HospitalIn the event this information is protected by the Federal Confidentiality of Alcohol and Drug Abuse Patient Records regulations: The Federal rules restrict any use of the information to criminally investigate or prosecute any alcohol or drug abuse patient.[facility] HospitalIn the event this information is protected by the Federal Confidentiality of Alcohol and Drug Abuse Patient Records regulations: The Federal rules restrict any use of the information to criminally investigate or prosecute any alcohol or drug abuse patient.[facility] HospitalIn the event this information is protected by the Federal Confidentiality of Alcohol and Drug Abuse Patient Records regulations: The Federal rules restrict any use of the information to criminally investigate or prosecute any alcohol or drug abuse patient.[facility] HospitalIn the event this information is protected by the Federal Confidentiality of Alcohol and Drug Abuse Patient Records regulations: The Federal rules restrict any use of the information to criminally investigate or prosecute any alcohol or drug abuse patient.[facility] the event this information is protected by the Federal Confidentiality of Alcohol and Drug Abuse Patient Records regulations: The Federal rules restrict any use of the information to criminally investigate or prosecute any alcohol or drug abuse patient.[facility] HospitalIn the event this information is protected by the Federal Confidentiality of Alcohol and Drug Abuse Patient Records regulations: The Federal rules restrict any use of the information to criminally investigate or prosecute any alcohol or drug abuse patient.[facility] HospitalIn the event this information is protected by the Federal Confidentiality of Alcohol and Drug Abuse Patient Records regulations: The Federal rules restrict any use of the information to criminally investigate or prosecute any alcohol or drug abuse patient.[facility] HospitalIn the event this information is protected by the Federal Confidentiality of Alcohol and Drug Abuse Patient Records regulations: The Federal rules restrict any use of the information to criminally investigate or prosecute any alcohol or drug abuse patient.[facility] Reason for Visit (unrecogniz ed section and content) Reason Comments Physical Therapy Specialty Diagnoses / Procedures Referred By Roberto pino Referred To Contact [facility] Diagnoses Numbness of hand DDD (degenerative disc disease), cervical Procedures CONSULT TO PHYSICAL THERAPY PHYSICAL THERAPY EVALUATION HIGH COMPLEX 45 MINS Jasmina Reyes PA-C [address] [place] [address] [facility] [address] [address] Referral ID Status Reason Start Date Expiration Date Visits Requested Visits Authorized [id number] Authorized PCP Requested Referral Auto-Generate d Referral 02/19/2023 02/19/2024 99 99 Reason Comments Follow Up mirgrains Reason Comments Abstract external document Reason Comments Results Cologuard Reason Comments Results Labs ([facility]) Reason Comments Medicare Wellness Exam Reason Comments Results Labs and Xray Orders Reason Comments New Right shoulder painR eferred by Jyoti Snell 11/20/2022Last seen by BP 02/24/2019 bilateral ulnar nerve neuropathy Specialty Diagnoses / Procedures Referred By Contgina pino Referred To Contact Orthopedics Diagnoses Acute pain of right shoulder Chronic neck pain Procedures CONSULT TO ORTHOPAEDICS OFFICE/OUTPATIENT [facility] 60-74 MINUTES Justine Leary APRN.[employer] [address] [place] [address] Referral ID Status Reason Start Date Expiration Date V isits Requested Visits Authorized [id number] Closed PCP Requested Referral 11/20/2022 11/20/2023 1 1 Reason Comments PT Eval Reason Onset Date Comments Population Health Navigation Outreach 06/08/2023 [place] [employer] - AWV, Care gaps, HCC gap closure - [facility] Reason Comments Acute Visit Bilat knees painful Reason Comments Results Knee Xray Reason Comments Results Xray Hips Reason Comments Acute Visit Blood in urine Reason Comments Results Labs/urine Reason Comments Radiology US Specialty Diagnoses / Procedures Referred By Contac t Referred To Contact US IMAGING Diagnoses History of flank pain Dark urine Procedures US KIDNEY/BLADDER US RETROPERITONEAL REAL TIME W/IMAGE COMPLETE Justine Leary, TARAS.[employer] [address] [place] [address] [place] [address] Referral ID Status Reason Start Date Expiration Date V isits Requested Visits Authorized [id number] Closed Auto-Generate d Referral 10/02/2023 10/31/2024 1 1 Reason Comments Results Us Kidney/bladder Reason Comments Elevated PSA Kidney Stones Specialty Diagnoses / Procedures Referred By Contac t Referred To Contact Urology Diagnoses Elevated PSA Procedures CONSULT TO UROLOGY OFFICE/OUTPATIENT [facility] 60 MINUTES Justine Leary, [employer] 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.[employer] [address] [place] [address] Referral ID Status Reason Start Date Expiration Date V isits Requested Visits Authorized [id number] Closed PCP Requested Referral 10/03/2023 10/02/2024 [address] Specialty Diagnoses / Procedures Referred By Contac t Referred To Contact CT IMAGING Diagnoses Kidney stone Flank pain Procedures CT FLANK WO IVCON CT ABD & PELVIS W/O CONTRAST Patrice Edwards Jr., MD [address] [place] [address] [place] [address] Referral ID Status Reason Start Date Expiration Date V isits Requested Visits Authorized [id number] Closed Auto-Generate d Referral 10/25/2023 11/23/2024 1 1 Reason Comments New Pain Specialty Diagnoses / Procedures Referred By Roberto pino Referred To Contact Orthopedics Diagnoses Bilateral hip pain Procedures CONSULT TO ORTHOPAEDICS OFFICE/OUTPATIENT NEW [facility]IGH MDM 60 MINUTES Justine Leary APRN.[employer] [address] [place] [address] Referral ID Status Reason Start Date Expiration Date V isits Requested Visits Authorized [id number] Closed PCP Requested Referral 09/12/2023 09/11/2024 1 1 Reason Comments Kidney Stones Reason Comments Schedule Surgery Reason Comments Appointment Care Teams (unrecognized sec tion and content) Md Urologist Relationship Specialty Start Date End Date Lilian Chowdhury MD [address] [place] [address] PCP - General Family Practice 05/31/15 Md Urologist Relationship Specialty Start Date End Date Lilian Chowdhury MD [address] [place] [address] PCP - General Family Practice 05/31/15 Md Urologist Relationship Specialty Start Date End Date Lilian Chowdhury MD [address] [place] [address] PCP - General Family Medicine 05/31/15 Md Urologist Relationship Specialty Start Date End Date Lilian Chowdhury MD [address] [place] [address] PCP - General Family Medicine 05/31/15 Md Urologist Relationship Specialty Start Date End Date Lilian Chowdhury MD [address] [place] [address] PCP - General Family Medicine 05/31/15 Md Urologist Relationship Specialty Start Date End Date Lilian Chowdhury MD [address] [place] [address] PCP - General Family Medicine 05/31/15 Md Urologist Relationship Specialty Start Date End Date Lilian Chowdhury MD [address] [facility] [place] [address] PCP - General Family Medicine 05/31/15 Md Urologist Relationship Specialty Start Date End Date Lilian Chowdhury MD [address] [facility] [place] [address] PCP - General Family Medicine 05/31/15 Md Urologist Relationship Specialty Start Date End Date Lilian Chowdhury MD [address] [facility] [place] [address] PCP - General Family Medicine 05/31/15 Md Urologist Relationship Specialty Start Date End Date Lilian Chowdhury MD [address] [facility] [place] [address] PCP - General Family Medicine 05/31/15 Md Urologist Relationship Specialty Start Date End Date Lilian Chowdhury MD [address] [facility] [place] [address] PCP - General Family Medicine 05/31/15 Md Urologist Relationship Specialty Start Date End Date Lilian Chowdhury MD [address] [facility] [place] [address] PCP - General Family Medicine 05/31/15 Md Urologist Relationship Specialty Start Date End Date Lilian Chowdhury MD [address] [facility] [place] [address] PCP - General Family Medicine 05/31/15 Md Urologist Relationship Specialty Start Date End Date Lilian Chowdhury MD [address] [facility] [place] [address] PCP - General Family Medicine 05/31/15 Md Urologist Relationship Specialty Start Date End Date Lilian Chowdhury MD [address] [facility] [place] [address] PCP - General Family Medicine 05/31/15 Md Urologist Relationship Specialty Start Date End Date Lilian Chowdhury MD [address] [facility] [place] [address] PCP - General Family Medicine 05/31/15 Md Urologist Relationship Specialty Start Date End Date Lilian Chowdhury MD [address] [facility] [place] [address] PCP - General Family Medicine 05/31/15 Md Urologist Relationship Specialty Start Date End Date Lilian Chowdhury MD [address] [facility] [place] [address] PCP - General Family Medicine 05/31/15 Md Urologist Relationship Specialty Start Date End Date Lilian Chowdhury MD [address] [facility] [place] [address] PCP - General Family Medicine 05/31/15 Md Urologist Relationship Specialty Start Date End Date Lilian Chowdhury MD [address] [facility] [place] [address] PCP - General Family Medicine 05/31/15 Md Urologist Relationship Specialty Start Date End Date Lilian Chowdhury MD [address] [facility] [place] [address] PCP - General Family Medicine 05/31/15 Md Urologist Relationship Specialty Start Date End Date Lilian Chowdhury MD [address] [place], [place] [address] PCP - General Family Medicine 05/31/15 Md Urologist Relationship Specialty Start Date End Date Lilian Chowdhury MD [address] [place], [place] [address] PCP - General Family Medicine 05/31/15 (unrecognized sect ion and content) No Status Records FoundNo Status Records Found INFORMATION SOURCE (unrecogn ized section and content) DATE CREATED AUTHOR 11/29/2023 [facility] DATE CREATED AUTHOR AUTHOR'S ORGANIZ ATION 2023 [facility] FOR RECORDS PERTAINING TO PATIENTS WHO ARE OR HAVE BEEN ENROLLED IN A CHEMICAL DEPENDENCY/SUBSTANCEABUSE PROGRAM, SOME INFORMATION MAY BE OMITTED. This clinical summary was aggregated from multiple sources. Caution should be exercised in using it in the provision of clinical care. This summary normalizes information from multiple sources, and as a consequence, information in this document may materially change the coding, format and clinical context of patient data. In addition, data may be omitted in some cases. CLINICAL DECISIONS SHOULD BE BASED ON THE PRIMARY CLINICAL RECORDS. [employer] [facility]. provides no warranty or guarantee of the accuracy or completeness of information in this document.
[2023-12-08 18:27] LABS: Anion Gap 7 (5-15); BUN 28 mg/dL (7-18); BUN/Creat Ratio 13.1 RATIO (10-20); Chloride 99 mmol/L (98-107); Creatinine, Serum 2.13 mg/dL (0.70-1.30); EST Glomerular Filtration Rate 33 mL/min (>60); Est Glom Filt Rate - Afr Amer 40 mL/min (>60); Estimated Creatinine Clearance 38.01 ml/min; Glucose 123 mg/dL (74-106); Potassium 4.1 mmol/L (3.5-5.1); Sodium Level 132 mmol/L (136-145)
[2023-12-08 18:42] LABS: Lactic Acid 1.3 mmol/L (0.4-1.9)
[2023-12-08 19:07] LABS: Mucous, Urine 0 SEEN /hpf (<or=2+)
[2023-12-08 19:08] LABS: Color, Urine Yellow (Yellow); Glucose, Dipstick Normal (Normal); Ketone-Dipstick Negative (Negative); Leukocyte Esterase-Dipstick 100 /ul (Negative); Nitrite-Dipstick Negative (Negative); Occult Blood-Urine 250 /ul (Negative); Protein-Dipstick 30 mg/dl (Negative); Urine Bilirubin Dipstick Negative (Negative); Urine Clarity Clear (Clear); Urine Urobilinogen Normal (Normal)
[2023-12-08 19:19] LABS: Bacteria 1+ /hpf (None Seen); Squamous Epithelial Cells - UA 0-5 SEEN /hpf (0-5)
[2023-12-08 19:20] LABS: Red Blood Cells-Urine 10-25 SEEN /hpf (0-5); White Blood Cells 5-10 SEEN /hpf (0-5)
[2023-12-08 19:21] VITALS: BP 157/82; PULSE 77; RESP 18; O2SAT 95
[2023-12-08 21:00] VITALS: BP 166/98; PULSE 82; RESP 16; O2SAT 97
[2023-12-08 21:03] VITALS: BP 166/98; PULSE 82; RESP 18; TEMP 36.7; O2SAT 97
--- OUTSIDE RECORDS SUMMARY | 2023-12-08 21:21 | XMS RPT_ITS | CCD ---
Author Organization [facility] Care Team Providers Care Director Embalmer Name Role Phone Subha Camacho Unavailable Deny Qiu Unavailable Yudith Vaz Unavailable Unavailable Tower Technician, System Unavailable Unavailable Rosi Smith Unavailable Unavailable [...] Primary Care Unavailable BEL RENEE Attending Unavailable VEMAINETZ, JASMINA Referring Unavailable LILIAN CHOWDHURY Primary Care [...] [ERYTHROMYCIN BASE] Drug Allergy 9 GI Upset [facility] Work Phone: (3 sources) tamsulosin; Translations: [TAMSULOSIN] Drug Allergy 4 Intolerance [facility] Other [facility] Medications Current Medications Medication Drug Class(es) [...] for pain for up to 5 days. acetaminophen 325 mg / oxyCODONE hydrochloride 5 mg oral tablet (1 source) Opioid Agonist Start: 12-07-19 End: 12-12-19 take 1 tablet by mouth every four hours as needed for pain oxyCODONE-acetaminophe n (PERCOCET) 5-325 mg tablet Indications: Kidney stone Take 1 tablet by mouth every 4 hours as needed for pain for up to 5 days. 10 tablet 12/07/2023 12/12/2023 Active aspirin 81 mg delayed release oral tablet (2 sources) Platelet Aggregation Inhibitor, Nonsteroidal Anti-inflammatory Drug take [...] 10/26/2023 Active ondansetron 8 mg oral tablet (3 sources) Serotonin-3 Receptor Antagonist Start: 11-13-19 take [...] Quantity: 28 {Tablet} Refills: 0 Ordered: 27-Apr-2011 Shirley Ponce RN Start : 05-Apr-2011 End : 27-Apr-2011 Discontinued [...] days Refills: 0 Ordered: 03-Oct-2010 Greg KAPLANAlma Start : 03-Aug-2010 End : 02-Oct-2010 Inactive [...] capsule (1 source) Glycopeptide Antibacterial Start: 09-17-19 End: 10-04-19 11 take 1 capsule by [...] 10-25-2023 10-25-2023 Episodic Calculus of urinary tract (11 sources) Kidney stone; Translations: [Calculus of kidney] [...] up for nex t week - with Annelise giardia and cdiffHad antibiotic in June Other [...] EVALon 024 ANES POSTPROC EVAL HNO ID: [id number] Author: TORSTEN MELGAR MD Service: Anesthesiology Author Type: Physician Type: Anesthesia Postprocedure Evaluation Filed: 12/03/2023 11:09 Note Text: POST ANESTHESIA EVALUATION NOTE : 1955 Procedure Summary Date: 12/03/23 Room / Location: [place] / [place] Anesthesia Start: 1018 Anesthesia Stop: 110 Procedure: EXTRACORPOREAL SHOCKWAVE LITHOTRIPSY UNILATERAL (Right: Kidney) Diagnosis: Calculus, renal (Calculus, renal [N20.0]) Surgeons: Patrice Edwards Jr., MD Responsible Provider: Torsten Melgar MD Anesthesia Type: general ASA Status: 3 Anesthesia Type: general Airway Type: LMA Last Vitals Vitals Value Taken Time BP 151/91 12/03/23 1106 Temp 12/03/23 1109 Pulse 85 12/03/23 1108 Resp 21 12/03/23 1108 SpO2 100 % 12/03/23 110 Vitals shown include unfiled device data. Post [...] December 03, 2023 TIME: 11:09 AM CSN: [id number] [facility] ANES PRE-OPon 12-03-2023 ANES PRE-OP HNO ID: [id number] Author: TORSTEN MELGAR MD Service: Anesthesiology Author Type: Physician Type: Anesthesia Preprocedure Evaluation Filed: 12/03/2023 09:51 Note Text: ANESTHESIOLOGY DAY OF SURGERY NOTE : 1955 Procedure Information Date/Time: 12/03/23 1126 Procedure: EXTRACORPOREAL SHOCKWAVE LITHOTRIPSY UNILATERAL (Right: Kidney) Location: [place] 20 [place] Surgeons: Patrice Edwards Jr., MD Estimated [...] and consent discussed: yes. Patient / Responsible [employer] agrees to proceed: yes Patient / Surrogate agrees to blood products: Yes Vitals Value Taken Time BP 142/87 12/03/23 0950 Pulse 79 12/03/23 0949 Resp 18 12/03/2349 Temp 36.8 ?C (98.2 ?F) 12/03/23 0949 [...] December 03, 2023 TIME: 9:51 AM CSN: [id number] [facility] 12-03-2023 CNPN Telephone (AKURFL) ----- BONNIE MARTINEZ ([id number]) 1955 M Date Time Provider Department 12/03/23 PATRICE EDWARDS JR During your visit today, we recorded the following information about you: Patrice Edwards Jr., MD 12/03/2023 10:18 AM Signed [facility] or 12/03/[address] 4 weeks John prior ordered Sue Griffin 12/03/2023 2:02 PM Signed Spoke to patient Patient is scheduled January 09, 2024 at 2pm, [facility] location, john prior Patient agrees and understands Thank you Sue Allergies As of Date: 12/03/2023 Noted Allergy Reaction ERYTHROMYCIN BASE 09/21/2008 8 - GI Upset FLOMAX (TAMSULOSIN) 11/29/2023 5 - Intolerance Comments: Bad diarrhea Date Reviewed: 12/03/2023 Reviewed by: Kervin Asif, RN - Fully Assessed Reason for Visit: Appointment [186] Primary Visit Diagnosis:Kidney stone [N20.0] Order(s):XR ABDOMEN 1V SUPINE [[id number]] Order #: [id number] FUTURE Prescriptions as of 12/03/2023 - oxyCODONE-acetaminophen [...] Encounter Status:Closed by PATRICE EDWARDS on 12/03/23 [facility] HISTORY PHYSICALon HISTORY PHYSICAL HNO ID: [id number] Author: PATRICE EDWARDS JR, MD Service: Urology [...] HISTORY OF right 4th and 5th injury-[facility] PAST SURGICAL HISTORY OF Right 1985 right [...] nephrolithiasis measuring up to 1.3 cm, unchanged. Box Gluer: DEVANG Transcribe Date/Time: Dec 03 2023 9:20A Dictated [...] PGY 2 Urology #[id number] 9:29 AM 12/03/23 [facility] OPERATIVE NOon 12-03-2023 OPERATIVE NO HNO ID: [id number] Author: PATRICE EDWARDS JR, MD Service: Urology [...] MD ----- Urology Operative Report LOG ID: [id number] SURGERY/PROCEDURE DATE: 12/03/2023 INCISION/PROCEDURE START TIME: 10:27 AM INCISION CLOSE/PROCEDURE END TIME: 11:01 AM PreOp Dx RIGHT renal calculus PostOp Dx Same Operation : RIGHT Extracorporeal Shock Wave Lithotripsy SURGEON(S)/PROCEDURALIST( S) AND SR. OPERATIONS MANAGER(S): Surgeons and Role: * Patrice Edwards Jr., [...] 2 Urology #2464 11:15 AM 12/03/[address] [facility] XR ABDOMEN 1V SUPINEon 12-02 XR ABDOMEN 1V SUPINE * * *Final Report* * * DATE OF EXAM: Dec 03 2023 9:12AM AKX [id number] - XR ABDOMEN 1V SUPINE / PROCEDURE REASON: Pre/Post operative evaluation * * * * Physician Interpretation * * * * XR ABDOMEN 1V [id number]/03/2023 9:12 AM CLINICAL HISTORY: Pre/Post operative evaluation COMPARISON: Abdominal radiograph 10/30/2023. TECHNIQUE: XR ABDOMEN 1V SUPINE RESULT: Multiple bilateral renal calculi measuring up to 1.3 cm in the right upper pole, similar to 10/30/2023 CT abdomen and pelvis. Moderate stool. No dilated bowel. Degenerative changes. IMPRESSION: Bilateral nephrolithiasis measuring up to 1.3 cm, unchanged. Box Gluer: Saatchi ArtB Transcribe Date/Time: Dec 03 2023 9:20A Dictated by : HARSH DINERO MD This examination was interpreted and the report reviewed and electronically signed by: HARSH DINERO MD on Dec 03 2023 9:22AM EST [id number] Normal [facility] Bacteria Ur Culton 4 Bacteria identified Cx Nom (U) ORGANISM ID: 1 10,000 -<50,000 CFU/ml Normal urogenital lazaro Normal [facility] Comment on above: Performed By: #### 6 30-4 ####[facility] TEODORO [id number] [address] [place] Aishwarya 11-13-2023 [place] Telephone (UROLAE) ----- BONNIE MARTINEZ ([id number]) 1955 M Date Time Provider Department 11/13/23 [...] a prescription gets sent to his pharmacy- [facility] in [place]. Please advise. Thanks, Patrice Barcenas Jr., MD [...] Encounter Status:Closed by JOYCE MARLEY on 11/13/23 [facility] CNOVon 11-08-2023 CN Office Visit (AKURFL ) ----- BONNIE MARTINEZ ([id number]) 1955 M Date Time Provider Department 11/08/23 10:00 AM PATRICE EDWARDS JR During your visit today, we recorded the following information about you: Height 1.727 m Patrice Edwards Jr., MD 11/08/2023 11:51 AM Signed ESTABLISHED PATIENT OFFICE VISIT HPI Bonnie Martinez [...] do laser litho or pcnl. [facility] ESWL's LAB: Creatinine Date Value Ref Range Status 10/02/2023 1.25 (H) 0.73 - 1.22 mg/dL Final PSA (ng/mL) Date Value 10/02/2023 7.55 11/21/2022 6.61 PSA Screening (ng/mL) Date Value 11/06/2019 4.56 Glucose, Urine (no units) Date Value 10/02/2023 Negative Bilirubin, Urine (no units) Date Value 10/02/2023 Negative Ketones, Urine (no units) Date Value 10/02/2023 Negative Specific [place], Ur (no units) Date Value 10/02/2023 1.013 [...] MD 11/08/2023 Referring Provider: PATRICE EDWARDS JR [[id number]] Allergies As of Date: 11/08/2023 Noted Allergy Reaction ERYTHROMYCIN BASE 09/21/2008 8 - GI Upset Date Reviewed: 11/08/2023 Reviewed by: Patrice Edwards Jr., MD - Fully Assessed Reason for Visit: Kidney Stones [43401] Primary Visit Diagnosis:Kidney stones [N20.0] [N20.0] Order(s):UA DIP, URINE (POC) [3661192] Order #: [id number]. #:[id number] Prescriptions as of 11/08/2023 - tamsulosin [...] Disposition History (more content not included)... Normal [facility] UA DIP, URINE (POC)on 2023 BILIRUBIN UA (POCT) Negative Negative [facility] CLARITY UA (POCT) Clear [facility] COLOR UA (POCT) Yellow [facility] GLUCOSE UA (POCT) Negative Negative mg/dL [facility] Hemoglobin Ql (U) Trace-intact Abnormal Negative [facility] Interpretation and review of laboratory results Abnormal [facility] KETONE UA (POCT) Negative Negative mg/dL [facility] LEUKOCYTES UA (POCT) Negative Negative [facility] NITRITE UA (POCT) Negative Negative [facility] PH UA (POCT) 5.5 4.5 - 8.0 [facility] Protein Ql (U) Negative Negative mg/dL [facility] SPECIFIC GRAVITY UA (POCT) 1.020 1.005 - 1.030 [facility] UROBILINOGEN UA (POCT) 0.2 Normal E.U./dL [facility] Location:[facility], [address] [place] [address], [address] [place] [address] POINT OF CARE [facility] CNOVon 11-01-2023 CNOV Office Visit (ORMDNA ) ----- BONNIE MARTINEZ ([id number]) 1955 M Date Time Provider Department 11/01/23 [...] the date of the service which included [id number] patient care, performing a medically appropriate examination, counseling and educating the patient/family/caregiver, independently interpreting results (not separately reported), and communicating results to the patient/family/caregiver. Ida Carlton MD Orthopaedic Surgery Referring Provider: JUSTINE LEARY [[id number]] Allergies As of Date: 11/01/2023 Noted Allergy Reaction ERYTHROMYCIN BASE 09/21/2008 8 - GI Upset Date Reviewed: 11/01/2023 Reviewed by: Tiff Fuentes OCCA - Fully Assessed Reason for Visit: New [302871] Pain [78] New [061042] Pain [78] Visit Diagnosis:Bilateral hip pain [M25.551, M25.552] Order(s):CONSULT TO ORTHOPAEDICS [9026] Order #: [id number]: 1 Prescriptions as of 11/01/2023 - tamsulosin [...] pain [M54.2, G89.29] 04/04/2023 Encounter Status:Closed by PREMAPERCYIDA on 11/01/23 Normal [facility] CT Abdomen and Pelvis WO con traston 10-31-2023 IMPRESSION: Nonobstructing bilateral renal calculi. Hepatic steatosis. Colonic diverticulosis. Box Gluer: DEVANG Transcribe Date/Time: Oct 31 2023 1:30P Dictated by : JEANNETTE TUCKER MD This examination was interpreted and the report reviewed and electronically signed by: JEANNETTE TUCKER MD on Oct 31 2023 1:39PM [facility] DIVISION OF RADIOLOGY * * *Final Report* * * DATE OF EXAM: Oct 30 2023 11:53AM [facility] 0529 - CT FLANK WO [...] No additional findings. DIVISION OF RADIOLOGY Provider, [facility] - 10/31/2023 * * *Final Report* * * DATE OF EXAM: Oct 30 2023 11:53AM [facility] 0529 - CT FLANK WO [...] bilateral renal calculi. Hepatic steatosis. Colonic diverticulosis. Box Gluer: PSCB Transcribe Date/Time: Oct 31 2023 1:30P Dictated by : JEANNETTE TUCKER MD This examination was interpreted and the report reviewed and electronically signed by: JEANNETTE TUCKER MD on Oct 31 2023 1:39PM EST [facility] CT Abdomen and Pelvis WO con trastOrdered By: Ccf Provider on 10-31-[address] [facility] [address] Abdomen and Pelvis WO con traston 10-30-2023 Radiology Study observation (narrative) [facility] CT FLANK WO IVCONon 10-30-[address] FLANK WO IVCON * * *Final Report* * * DATE OF EXAM: Oct 30 2023 11:53AM [facility] 0529 - CT FLANK WO [...] bilateral renal calculi. Hepatic steatosis. Colonic diverticulosis. Box Gluer: [facility] Transcribe Date/Time: Oct 31 2023 1:30P Dictated by : JEANNETTE TUCKER MD This examination was interpreted and the report reviewed and electronically signed by: JEANNETTE TUCKER MD on Oct 31 2023 1:39PM EST [id number] Normal [facility] XR ABDOMEN 1V SUPINEon 10-29 XR ABDOMEN [...] acute osseous abnormalities. IMPRESSION: Bilateral renal calculi Box Gluer: [facility] Transcribe Date/Time: Nov 02 2023 10:25A Dictated by : SHELIA HIGGINS MD This examination was interpreted and the report reviewed and electronically signed by: SHELIA HIGGINS MD on Nov 02 2023 10:27AM EST [id number] Normal [facility] CNOVon 10-25-2023 CNOV Office Visit (AKURFL ) ----- BONNIE MARTINEZ ([id number]) 1955 M Date Time Provider Department 10/25/23 [...] (no units) Date Value 10/02/2023 Negative Specific [place], Ur (no units) Date Value 10/02/2023 1.013 [...] PAST MEDICAL HISTORY OF Comment: DDD, 08/2008: PM - PAST MEDICAL HISTORY OF Comment: fracture [...] Edwards Jr, MD Referring Provider: JUSTINE LEARY [[id number]] Allergies As of Date: 10/25/2023 Noted Allergy Reaction ERYTHROMYCIN BASE 09/21/2008 8 - GI Upset Date Reviewed: 10/25/2023 Reviewed by: Patrice Edwards Jr., MD - Fully Assessed Reason for Visit: Elevated PSA [3906] Kidney Stones [10470] Primary Visit Diagnosis:Kidney stone [N20.0] Other Visit Diagnoses:Elevated PSA [R97.20] Flank pain [R10.9] Encounter for observation for other suspected diseases and conditions ruled out [Z03.89] Order(s):CONSULT TO UROLOGY [9041] Order #: [id number]: 1 UA DIP, URINE (POC) [0786988] Order #: [id number]. #:[id number] 48-LAB CT FLANK WO IVCON [8930871] Order #: [id number] FUTURE MRI PROSTATE WO/W IVCON [1425823] Order #: [id number] FUTURE iv contrast (will be provided with radiology test)MRI Prostate Inject, intravenously, once for 1 dose. No IV access, insert saline lock prior to the beginning of sedation, infusion, injection of imaging exam. Discontinue saline lock post exam. If Pt. has (more content not included)... Normal [facility] UA DIP, URINE (POC)on 2023 BILIRUBIN UA (POCT) Negative Negative [facility] CLARITY UA (POCT) Clear [facility] COLOR UA (POCT) Yellow [facility] GLUCOSE UA (POCT) Negative Negative mg/dL [facility] Hemoglobin Ql (U) Small Abnormal Negative [facility] Interpretation and review of laboratory results Abnormal [facility] KETONE UA (POCT) Negative Negative mg/dL [facility] LEUKOCYTES UA (POCT) Negative Negative [facility] NITRITE UA (POCT) Negative Negative [facility] PH UA (POCT) 6.5 4.5 - 8.0 [facility] Protein Ql (U) Negative Negative mg/dL [facility] SPECIFIC GRAVITY UA (POCT) 1.020 1.005 - 1.030 [facility] UROBILINOGEN UA (POCT) 0.2 Normal E.U./dL [facility] Location:[facility], [address] [place] [address], [place], [place], [id number] [place] [address] POINT OF CARE [facility] Aishwarya 10-18-2023 EUSEB[place] Telephone (FAMPWS) ----- JUANBONNIE ([id number]) 1955 M Date Time Provider Department 10/18/23 [facility] During your visit today, we recorded the following information about you: Justine Leary APRN.ASSOCIATE LOAN OFFICER 10/18/2023 1:27 PM Signed Can you please [...] Thank you. Justine Leary APRN.Jesse Gaytan LPN 10/18/2023 1:41 PM Signed TC to [...] Status:Closed by NILDA VIVAS on 10/18/23 Normal [facility] US KIDNEY/BLADDERon 10-15-19 US KIDNEY/BLADDER * * [...] Nephrolithiasis Small postvoid residual urinary bladder volume Box Gluer: DEVANG Transcribe Date/Time: Oct 16 2023 10:37A Dictated by : MARGARET PALAFOX MD This examination was interpreted and the report reviewed and electronically signed by: MARGARET PALAFOX MD on Oct 16 2023 10:43AM EST [id number] Normal [facility] ----- BONNIE MARTINEZ ([id number]) 1955 M Date Time Provider Department 10/03/23 JUSTINE LEARY [facility] During your visit today, we recorded the [...] Thank you. Justine Leary APRN.Jesse Gaytan LPN 10/03/2023 8:52 AM Signed Patient notified [...] [R97.20] Order(s):CONSULT TO UROLOGY [9041] Order #: [id number]: 1 FUTURE Meds Comments as of 03/15/2018: [...] Status:Closed by JUSTINE LEARY on 10/03/23 Normal [facility] Bacteria Ur Culton Bacteria identified Cx Nom (U) CULTURE, URINE: No growth (<1,000 CFU/ml) Normal [facility] Comment on above: Performed By: #### 6 30-4 ####[facility] LABCLIA [id number] [place] [address] [place] CBC W Auto Differential pane l (Bld)on 10-02-2023 Basophils (Bld) [#/Vol] 0.06 10*3/uL [facility] Basophils/100 WBC (Bld) 0.7 % [facility] Differential cell count method Nom (Bld) Auto [facility] Eosinophils (Bld) [#/Vol] 0.24 10*3/uL [facility] Eosinophils/100 WBC (Bld) 2.8 % [facility] Erythrocyte distribution width (RBC) [Ratio] 12.5 % 11.5 - 15.0 % [facility] Hematocrit (Bld) [Volume fraction] 40.2 % 39.0 - 51.0 % [facility] Hemoglobin (Bld) [Mass/Vol] 13.2 g/dL 13.0 - 17.0 g/dL [facility] Immature granulocytes (Bld) [#/Vol] 0.03 10*3/uL [facility] Immature granulocytes/100 WBC (Bld) 0.4 % [facility] Interpretation and review of laboratory results Abnormal [facility] Lymphocytes (Bld) [#/Vol] 1.49 10*3/uL [facility] Lymphocytes/100 WBC (Bld) 17.6 % [facility] MCH (RBC) [Entitic mass] 29.5 pg 26.0 - 34.0 pg [facility] MCHC (RBC) [Mass/Vol] 32.8 g/dL 30.5 - 36.0 g/dL [facility] MCV (RBC) [Entitic vol] 89.7 fL 80.0 - 100.0 fL [facility] Monocytes (Bld) [#/Vol] 1.29 10*3/uL High [facility] Monocytes/100 WBC (Bld) 15.3 % [facility] Neutrophils (Bld) [#/Vol] 5.34 10*3/uL [facility] Neutrophils/100 WBC (Bld) 63.2 % [facility] Nucleated RBC (Bld) [#/Vol] [facility] Nucleated RBC/100 WBC (Bld) [Ratio] 0.0 % /100 WBC [facility] Platelet mean volume (Bld) [Entitic vol] 10.6 fL 9.0 - 12.7 fL [facility] Platelets (Bld) [#/Vol] 270 10*3/uL [facility] RBC (Bld) [#/Vol] 4.48 10*6/uL 4.20 - 6.00 m/uL [facility] WBC (Bld) [#/Vol] 8.45 10*3/uL [facility] Basophils (Bld) [#/Vol] 0.06 10*3/uL Normal <0.11 [facility] Comment on above: Order Comment: Speci men Type: BLOOD SPECIMENOrdering Facility: [facility] Address: [address] [place] [address] Performed By: #### 5 7021-8 ####[facility] LABCLIA [id number] [place] [address] [place] Basophils/100 WBC (Bld) 0.7 % Normal [facility] Comment on above: Order Comment: Speci men Type: BLOOD SPECIMENOrdering Facility: [facility] Address: [address] [place] [address] Performed By: #### 5 7021-8 ####[facility] LABCLIA [id number] [place] [address] [place] Differential cell count method Nom (Bld) Auto Normal [facility] Comment on above: Order Comment: Speci men Type: BLOOD SPECIMENOrdering Facility: [facility] Address: [address] [place] [address] Performed By: #### 5 7021-8 ####[facility] LABCLIA [id number] [place] [address] [place] Eosinophils (Bld) [#/Vol] 0.24 10*3/uL Normal <0.46 [facility] Comment on above: Order Comment: Speci men Type: BLOOD SPECIMENOrdering Facility: [facility] Address: [address] [place] [address] Performed By: #### 5 7021-8 ####[facility] LABCLIA [id number] [place] [address] [place] Eosinophils/100 WBC (Bld) 2.8 % Normal [facility] Comment on above: Order Comment: Speci men Type: BLOOD SPECIMENOrdering Facility: [facility] Address: [address] [place] [address] Performed By: #### 5 7021-8 ####[facility] LABCLIA [id number] [place] [address] [place] Erythrocyte distribution width (RBC) [Ratio] 12.5 % Normal 11.5-15.0 [facility] Comment on above: Order Comment: Speci men Type: BLOOD SPECIMENOrdering Facility: [facility] Address: [address] [place] [address] Performed By: #### 5 7021-8 ####[facility] LABCLIA [id number] [place] [address] [place] Hematocrit (Bld) [Volume fraction] 40.2 % Normal 39.0-51.0 [facility] Comment on above: Order Comment: Speci men Type: BLOOD SPECIMENOrdering Facility: [facility] Address: [address] [place] [address] Performed By: #### 5 7021-8 ####[facility] LABCLIA [id number] [place] [address] [place] Hemoglobin (Bld) [Mass/Vol] 13.2 g/dL Normal 13.0-17.0 [facility] Comment on above: Order Comment: Speci men Type: BLOOD SPECIMENOrdering Facility: [facility] Address: [address] [place] [address] Performed By: #### 5 7021-8 ####[facility] LABIA [id number] [place] [address] [place] Immature granulocytes (Bld) [#/Vol] 0.03 10*3/uL Normal <0.10 [facility] Comment on above: Order Comment: Speci men Type: BLOOD SPECIMENOrdering Facility: [facility] Address: [address] [place] [address] Performed By: #### 5 7021-8 ####[facility] LABCLIA [id number] [place] [address] [place] Immature granulocytes/100 WBC (Bld) 0.4 % Normal [facility] Comment on above: Order Comment: Speci men Type: BLOOD SPECIMENOrdering Facility: [facility] Address: [address] [place] [address] Performed By: #### 5 7021-8 ####[facility] LABIA [id number] [place] [address] [place] Lymphocytes (Bld) [#/Vol] 1.49 10*3/uL Normal 1.00-4.00 [facility] Comment on above: Order Comment: Speci men Type: BLOOD SPECIMENOrdering Facility: [facility] Address: [address] [place] [address] Performed By: #### 5 7021-8 ####[facility] LABIA [id number] [place] [address] [place] Lymphocytes/100 WBC (Bld) 17.6 % Normal [facility] Comment on above: Order Comment: Speci men Type: BLOOD SPECIMENOrdering Facility: [facility] Address: [address] [place] [address] Performed By: #### 5 7021-8 ####[facility] LABIA [id number] [place] [address] [place] MCH (RBC) [Entitic mass] 29.5 pg Normal 26.0-34.0 [facility] Comment on above: Order Comment: Speci men Type: BLOOD SPECIMENOrdering Facility: [facility] Address: [address] [place] [address] Performed By: #### 5 7021-8 ####[facility] LABIA [id number] [place] [address] [place] MCHC (RBC) [Mass/Vol] 32.8 g/dL Normal 30.5-36.0 [facility] Comment on above: Order Comment: Speci men Type: BLOOD SPECIMENOrdering Facility: [facility] Address: [address] [place] [address] Performed By: #### 5 7021-8 ####[facility] LABCLIA [id number] [place] [address] [place] MCV (RBC) [Entitic vol] 89.7 fL Normal 80.0-100.0 [facility] Comment on above: Order Comment: Speci men Type: BLOOD SPECIMENOrdering Facility: [facility] Address: [address] [place] [address] Performed By: #### 5 7021-8 ####[facility] [facility] [id number] [place] [address] [place] Monocytes (Bld) [#/Vol] 1.29 10*3/uL High <0.87 [facility] Comment on above: Order Comment: Speci men Type: BLOOD SPECIMENOrdering Facility: [facility] Address: [address] [place] [address] Performed By: #### 5 7021-8 ####[facility] LABCLIA [id number] [place] [address] [place] Monocytes/100 WBC (Bld) 15.3 % Normal [facility] Comment on above: Order Comment: Speci men Type: BLOOD SPECIMENOrdering Facility: [facility] Address: [address] [place] [address] Performed By: #### 5 7021-8 ####[facility] LABCLIA [id number] [place] [address] [place] Neutrophils (Bld) [#/Vol] 5.34 10*3/uL Normal 1.45-7.50 [facility] Comment on above: Order Comment: Speci men Type: BLOOD SPECIMENOrdering Facility: [facility] Address: [address] [place] [address] Performed By: #### 5 7021-8 ####[facility] LABCLIA [id number] [place] [address] [place] Neutrophils/100 WBC (Bld) 63.2 % Normal [facility] Comment on above: Order Comment: Speci men Type: BLOOD SPECIMENOrdering Facility: [facility] Address: [address] [place] [address] Performed By: #### 5 7021-8 ####[facility] LABIA [id number] [place] [address] [place] Nucleated RBC (Bld) [#/Vol] 10*3/uL Normal <0.01 [facility] Comment on above: Order Comment: Speci men Type: BLOOD SPECIMENOrdering Facility: [facility] Address: [address] [place] [address] Performed By: #### 5 7021-8 ####[facility] LABIA [id number] [place] [address] [place] Nucleated RBC/100 WBC (Bld) [Ratio] 0.0 /100 WBC Normal [facility] Comment on above: Order Comment: Speci men Type: BLOOD SPECIMENOrdering Facility: [facility] Address: [address] [place] [address] Performed By: #### 5 7021-8 ####[facility] LABIA [id number] [place] [address] [place] Platelet mean volume (Bld) [Entitic vol] 10.6 fL Normal 9.0-12.7 [facility] Comment on above: Order Comment: Speci men Type: BLOOD SPECIMENOrdering Facility: [facility] Address: [address] [place] [address] Performed By: #### 5 7021-8 ####[facility] LABIA [id number] [place] [address] [place] Platelets (Bld) [#/Vol] 270 10*3/uL Normal 150-400 [facility] Comment on above: Order Comment: Speci men Type: BLOOD SPECIMENOrdering Facility: [facility] Address: [address] [place] [address] Performed By: #### 5 7021-8 ####[facility]CLIA [id number] [place] [address] [place] RBC (Bld) [#/Vol] 4.48 10*6/uL Normal 4.20-6.00 [facility] Comment on above: Order Comment: Speci men Type: BLOOD SPECIMENOrdering Facility: [facility] Address: [address] [place] [address] Performed By: #### 5 7021-8 ####[facility]CLIA [id number] [place] [address] [place] WBC (Bld) [#/Vol] 8.45 10*3/uL Normal 3.70-11.00 [facility] Comment on above: Order Comment: Speci men Type: BLOOD SPECIMENOrdering Facility: [facility] Address: [address] [place] [address] Performed By: #### 5 7021-8 ####[facility] LABCLIA [id number] [address] [place] [facility]OVon 10-02[facility]2023 [facility] BONNIE MARTINEZ ([id number]) 1955 M Date Time Provider Department 10/02/23 10:00 AM [facility] During your visit today, we recorded the following information about you: Pulse Respiration Blood pressure Weight 77/minute 16/minute 136/90 93 kg Justine Leary APRN.CNP 10/02/2023 11:46 AM Signed This is a [...] OF Comment: right 4th and 5th injury-[facility] 1985: PAST SURGICAL HISTORY OF; Right Comment: [...] discussed and patient voices understanding. Justine Leary APRN.ASSOCIATE LOAN OFFICER This note was partially generated using Digital Theatre recognition system. Note was (more content not included)... Normal [facility] metabolic 2000 panelon 10-02-2023 Albumin [Mass/Vol] 4.1 g/dL 3.9 - 4.9 g/dL [facility] ALP [Catalytic activity/Vol] 64 U/L 38 - 113 U/L [facility] ALT [Catalytic activity/Vol] 20 U/L 10 - 54 U/L [facility] Anion gap [Moles/Vol] 12 mmol/L 8 - 15 mmol/L [facility] AST [Catalytic activity/Vol] 22 U/L 14 - 40 U/L [facility] Bilirubin [Mass/Vol] 0.4 mg/dL 0.2 - 1 .3 mg/dL [facility] Calcium [Mass/Vol] 9.7 mg/dL 8.5 - 10. 2 mg/dL [facility] Chloride [Moles/Vol] 101 mmol/L 98 - 10 7 mmol/L [facility] CO2 [Moles/Vol] 23 mmol/L 22 - 30 mmol/L [facility] Creatinine [Mass/Vol] 1.25 mg/dL High 0.73 - 1.22 mg/dL [facility] GFR/1.73 sq M.predicted among non-blacks MDRD (S/P/Bld) [Vol rate/Area] 64 mL/min/{1.73_m2} - PINF [facility] Comment on above: Estimated Glomerular Filtration Rate [...] 109 mg/dL High 74 - 99 mg/dL [facility] Comment on above: The [place] Diabete s Association (ADA) provides guidance for [...] Standards of Medical Care in Diabetes 2016, [place] Diabetes Association. Diabetes Care. 2016.39(Suppl 1). Interpretation and review of laboratory results Abnormal [facility] Potassium [Moles/Vol] 4.3 mmol/L 3.7 - 5.1 mmol/L [facility] Protein [Mass/Vol] 8.5 g/dL High 6.3 - 8.0 g/dL [facility] Sodium [Moles/Vol] 136 mmol/L 136 - 144 mmol/L [facility] Urea nitrogen [Mass/Vol] 14 mg/dL 9 - 24 mg/dL [facility] Albumin [Mass/Vol] 4.1 g/dL Normal 3.9-4.9 [facility] Comment on above: Order Comment: Speci men Type: BLOOD SPECIMENOrdering Facility: [facility] Address: [address] [place] [address] Performed By: #### 1 0886-0, 14003-2 ####[facility] LABCLIA [id number] [place] [address] [place] ALP [Catalytic activity/Vol] 64 U/L Normal 38-113 [facility] Comment on above: Order Comment: Speci men Type: BLOOD SPECIMENOrdering Facility: [facility] Address: [address] [place] [address] Performed By: #### 1 0886-0, 73023-7 ####[facility] LABCLIA [id number] [place] [address] [place] ALT [Catalytic activity/Vol] 20 U/L Normal 10-54 [facility] Comment on above: Order Comment: Speci men Type: BLOOD SPECIMENOrdering Facility: [facility] Address: [address] [place] [address] Performed By: #### 1 0886-0, 85994-0 ####[facility] LABIA [id number] [place] [address] [place] Anion gap [Moles/Vol] 12 mmol/L Normal 8-15 [facility] Comment on above: Order Comment: Speci men Type: BLOOD SPECIMENOrdering Facility: [facility] Address: [address] [place] [address] Performed By: #### 1 0886-0, 11681-6 ####[facility]CLIA [id number] [place] [address] [place] AST [Catalytic activity/Vol] 22 U/L Normal 14-40 [facility] Comment on above: Order Comment: Speci men Type: BLOOD SPECIMENOrdering Facility: [facility] Address: [address] [place] [address] Performed By: #### 1 0886-0, ####[facility] LABCLIA [id number] [place] [address] [place] Bilirubin [Mass/Vol] 0.4 mg/dL Normal 0.2-1.3 [facility] Comment on above: Order Comment: Speci men Type: BLOOD SPECIMENOrdering Facility: [facility] Address: [address] [place] [address] Performed By: #### 1 0886-0, ####[facility] LABCLIA [id number] [place] [address] [place] Calcium [Mass/Vol] 9.7 mg/dL Normal 8.5-10.2 [facility] Comment on above: Order Comment: Speci men Type: BLOOD SPECIMENOrdering Facility: [facility] Address: [address] [place] [address] Performed By: #### 1 0886-0, ####[facility]CLIA [id number] [place] [address] [place] Chloride [Moles/Vol] 101 mmol/L Normal 98-107 [facility] Comment on above: Order Comment: Speci men Type: BLOOD SPECIMENOrdering Facility: [facility] Address: [address] [place] [address] Performed By: #### 1 0886-0, ####[facility]CLIA [id number] [place] [address] [place] CO2 [Moles/Vol] 23 mmol/L Normal 22-30 [facility] Comment on above: Order Comment: Speci men Type: BLOOD SPECIMENOrdering Facility: [facility] Address: [address] [place] [address] Performed By: #### 1 0886-0, 99553-7 ####[facility] LABCLIA [id number] [place] [address] [place] Creatinine [Mass/Vol] 1.25 mg/dL High 0.73-1.22 [facility] Comment on above: Order Comment: Speci men Type: BLOOD SPECIMENOrdering Facility: [facility] Address: [address] [place] [address] Performed By: #### 1 0886-0, 45544-7 ####[facility] LABIA [id number] [place] [address] [place] Creatinine and Glomerular filtration rate.predicted panel (S/P/Bld) 64 mL/min/1.73m??? Normal >=60 [facility] Comment on above: Order Comment: Speci men Type: BLOOD SPECIMENOrdering Facility: [facility] Address: [address] [place] [address] Result Comment: Yue mated Glomerular Filtration Rate [...] actual GFR. Performed By: #### 1 0886-0, 22919-5 ####[facility] LABCLIA [id number] [place] [address] [place] Glucose [Mass/Vol] 109 mg/dL High 74-99 [facility] Comment on above: Order Comment: Speci men Type: BLOOD SPECIMENOrdering Facility: [facility] Address: [address] [place] [address] Result Comment: The [place] Diabetes Association (ADA) provides guidance for cutoff [...] Standards of Medical Care in Diabetes 2016, [place] Diabetes Association. Diabetes Care. 2016.39(Suppl 1). Performed By: #### 1 0886-0, 49010-2 ####[facility] LABCLIA [id number] [place] [address] [place] Potassium [Moles/Vol] 4.3 mmol/L Normal 3.7-5.1 [facility] Comment on above: Order Comment: Speci men Type: BLOOD SPECIMENOrdering Facility: [facility] Address: [address] [place] [address] Performed By: #### 1 0886-0, 66075-8 ####[facility] LABCLIA [id number] [place] [address] [place] Protein [Mass/Vol] 8.5 g/dL High 6.3-8.0 [facility] Comment on above: Order Comment: Speci men Type: BLOOD SPECIMENOrdering Facility: [facility] Address: [address] [place] [address] Performed By: #### 1 0886-0, ####[facility] LABCLIA [id number] [place] [address] [place] Sodium [Moles/Vol] 136 mmol/L Normal 136-144 [facility] Comment on above: Order Comment: Speci men Type: BLOOD SPECIMENOrdering Facility: [facility] Address: [address] [place] [id number] Performed By: #### 1 0886-0, 34338-6 ####[facility] LABCLIA [id number] [place] [id number] [place] Urea nitrogen [Mass/Vol] 14 mg/dL Normal 9-24 [facility] Comment on above: Order Comment: Speci men Type: BLOOD SPECIMENOrdering Facility: [facility] Address: [address] [place] [id number] Performed By: #### 1 0886-0, 13269-5 ####[facility] LABCLIA [id number] [place] [id number] [place] Free PSA [Mass/Vol]on 2023 Free PSA/Total PSA [Mass fraction] 17 % [facility] Comment on above: Total and free PSA [...] Interpretation and review of laboratory results Abnormal [facility] Prostate specific Ag [Mass/Vol] 7.55 ng/mL High NINF - 2.60 ng/mL [facility] Comment on above: Total PSA test metho [...] Sevilla M.D., Ph.D., Missael Price M.D., Myrna Zavaleta, M.P.H., Anabela Jade Sc.D. Effect of Verification Bias on Screening for Prostate Cancer by Measurement of Prostatic Specific Antigen. N Engl J Med 2003,349:335-42. [facility] Free PSA/Total PSA [Mass fraction] 17 % Normal [facility] Comment on above: Order Comment: Speci men Type: BLOOD SPECIMENOrdering Facility: [facility] Address: [address] [place] [address] Result Comment: Tota l and free PSA [...] 12.2% 15.8% Performed By: #### 1 0886-0, 95785-1 ####[facility] LABCLIA [id number] [place] [address] [place] Prostate specific Ag [Mass/Vol] 7.55 ng/mL High <2.60 [facility] Comment on above: Order Comment: Speci men Type: BLOOD SPECIMENOrdering Facility: [facility] Address: [address] [place] [address] Result Comment: Tota l PSA test methodology [...] Sevilla M.D., Ph.D., Missael Price M.D., Myrna Zavaleta, M.P.H., Anabela Jade, Sc.Eufemia. Effect of Verification Bias on Screening for Prostate Cancer by Measurement of Prostatic Specific Antigen. N Engl J Med 2003,349:335-42. Performed By: #### 1 0886-0, 40912-3 ####[facility] LABCLIA [id number] [place] [address] [place] UA DIP, URINE (POC)on 2023 BILIRUBIN UA (POCT) Negative Negative [facility] CLARITY UA (POCT) Clear [facility] COLOR UA (POCT) Yellow [facility] GLUCOSE UA (POCT) Negative Negative mg/dL [facility] Hemoglobin Ql (U) Trace-lysed Abnormal Negative [facility] Interpretation and review of laboratory results Abnormal [facility] KETONE UA (POCT) Negative Negative mg/dL [facility] LEUKOCYTES UA (POCT) Negative Negative [facility] NITRITE UA (POCT) Negative Negative [facility] PH UA (POCT) 6.0 4.5 - 8.0 [facility] Protein Ql (U) Negative Negative mg/dL [facility] SPECIFIC GRAVITY UA (POCT) 1.015 1.005 - 1.030 [facility] UROBILINOGEN UA (POCT) 0.2 Normal E.U./dL [facility] Location:[address], [place], [place], [address] [place] [address] POINT OF CARE [facility] Urinalysis complete panel (U )on 10-02-2023 Bacteria LM.HPF (Urine sed) [#/Area] Negative Normal Negative [facility] Comment on above: Order Comment: Speci men Type: URINE SPECIMENOrdering Facility: [facility] Address: [address] [place] [address] Performed By: #### 2 4356-8 ####[facility] LABCLIA [id number] [place] [address] [place] Bilirubin Ql (U) Negative Normal Negative [facility] Comment on above: Order Comment: Speci men Type: URINE SPECIMENOrdering Facility: [facility] Address: [address] [place] [address] Performed By: #### 2 4356-8 ####[facility] LABCLIA [id number] [place] [address] [place] Clarity (Unsp spec) Clear Normal Clear [facility] Comment on above: Order Comment: Speci men Type: URINE SPECIMENOrdering Facility: [facility] Address: [address] [place] [address] Performed By: #### 2 4356-8 ####[facility] LABCLIA [id number] [place] [address] [place] Color (U) Yellow Normal Yellow [facility] Comment on above: Order Comment: Speci men Type: URINE SPECIMENOrdering Facility: [facility] Address: [address] [place] [address] Performed By: #### 2 4356-8 ####[facility] LABCLIA [id number] [place] [address] [place] Epithelial cells LM.HPF (Urine sed) [#/Area] None Seen Normal [facility] Comment on above: Order Comment: Speci men Type: URINE SPECIMENOrdering Facility: [facility] Address: [address] [place] [address] Performed By: #### 2 4356-8 ####[facility] LABCLIA [id number] [place] [address] [place] Glucose Test strip (U) [Mass/Vol] Negative Normal Negative [facility] Comment on above: Order Comment: Speci men Type: URINE SPECIMENOrdering Facility: [facility] Address: [address] [place] [address] Performed By: #### 2 4356-8 ####[facility] LABCLIA [id number] [place] [address] [place] Hemoglobin Ql (U) Negative Normal Negative [facility] Comment on above: Order Comment: Speci men Type: URINE SPECIMENOrdering Facility: [facility] Address: [address] [place] [address] Performed By: #### 2 4356-8 ####[facility] LABCLIA [id number] [place] [address] [place] Hyaline casts (Urine sed) [#/Area] 0 /[LPF] Normal 0 /LPF [facility] Comment on above: Order Comment: Speci men Type: URINE SPECIMENOrdering Facility: [facility] Address: [address] [place] [address] Performed By: #### 2 4356-8 ####[facility] LABCLIA [id number] [place] [address] [place] Ketones Ql (U) Negative Normal Negative [facility] Comment on above: Order Comment: Speci men Type: URINE SPECIMENOrdering Facility: [facility] Address: [address] [place] [address] Performed By: #### 2 4356-8 ####[facility] LABCLIA [id number] [place] [address] [place] Leukocyte esterase Test strip Ql (U) Negative Normal Negative [facility] Comment on above: Order Comment: Speci men Type: URINE SPECIMENOrdering Facility: [facility] Address: [address] [place] [address] Performed By: #### 2 4356-8 ####[facility] LABCLIA [id number] [place] [address] [place] Nitrite Ql (U) Negative Normal Negative [facility] Comment on above: Order Comment: Speci men Type: URINE SPECIMENOrdering Facility: [facility] Address: [address] [place] [address] Performed By: #### 2 4356-8 ####[facility] LABCLIA [id number] [place] [address] [place] pH (U) 6.0 [pH] Normal <8.5 [facility] Comment on above: Order Comment: Speci men Type: URINE SPECIMENOrdering Facility: [facility] Address: [address] [place] [address] Performed By: #### 2 4356-8 ####[facility] LABCLIA [id number] [place] [address] [place] Protein (U) [Mass/Vol] Negative Normal Negative [facility] Comment on above: Order Comment: Speci men Type: URINE SPECIMENOrdering Facility: [facility] Address: [address] [place] [address] Performed By: #### 2 4356-8 ####[facility] LABCLIA [id number] [place] [address] [place] RBC LM.HPF (Urine sed) [#/Area] 0-2 /HPF Normal 0-2 /HPF [facility] Comment on above: Order Comment: Speci men Type: URINE SPECIMENOrdering Facility: [facility] Address: [address] [place] [address] Performed By: #### 2 4356-8 ####[facility] LABIA [id number] [place] [address] [place] Specific gravity (U) [Rel density] 1.013 Normal 1.005-1.03 0 [facility] Comment on above: Order Comment: Speci men Type: URINE SPECIMENOrdering Facility: [facility] Address: [address] [place] [address] Performed By: #### 2 4356-8 ####[facility] LABIA [id number] [place] [address] [place] Urobilinogen Ql (U) 0.2 EU/dL Normal 0.2-1.0 EU/dL [facility] Comment on above: Order Comment: Speci men Type: URINE SPECIMENOrdering Facility: [facility] Address: [address] [place] [address] Performed By: #### 2 4356-8 ####[facility] LABIA [id number] [place] [address] [place] WBC LM.HPF (Urine sed) [#/Area] 0-5 /HPF Normal 0-5 /HPF [facility] Comment on above: Order Comment: Speci men Type: URINE SPECIMENOrdering Facility: [facility] Address: [address] [place] [address] Performed By: #### 2 4356-8 ####[facility] LABIA [id number] [place] [address] [place] [facility] BONNIE MARTINEZ ([id number]) 1955 M Date Time Provider Department 09/17/23 [facility] During your visit today, we recorded the following information about you: Justine Leary APRN.ASSOCIATE LOAN OFFICER 09/17/2023 7:07 AM Signed Can you please [...] Encounter Status:Closed by JESSE GONZALEZ on 09/17/23 [facility]20[facility] BONNIE MARTINEZ ([id number]) 1955 M Date Time Provider Department 09/14/23 JUSTINE LEARY During your visit today, we recorded the following information about you: Justine Leary APRN.ASSOCIATE LOAN OFFICER 09/14/2023 7:56 AM Signed Can you please call the patient and let him know that I reviewed his knee x-ray results. 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 This is usually seen with children but can affect adults as well. We treat this with RICE therapy, rest, ice, compression, elevation. NSAIDs are used to reduce inflammation, he may use [id number] or consider taking a once a day [...] Status:Closed by JESSE GONZALEZ on 09/14/23 Normal [facility] XR HIP BILATERAL 5V PEL/AP/L AT EACH HIPon 09-14-2023 IMPRESSION: Mild degenerative changes at the hips with no acute fractures seen [facility] Gl[facility] Transcribe Date/Time: Sep 14 2023 7:10P Dictated by : MIRACLE VARGAS MD This examination was interpreted and the report reviewed and electronically signed by: MIRACLE VARGAS MD on Sep 14 2023 7:11PM [facility] DIVISION OF RADIOLOGY * * *Final Report* [...] the left hip. DIVISION OF RADIOLOGY Provider, Rose Garcia - 09/14/2023 * * *Final Report* * [...] the hips with no acute fractures seen [facility] Trans[facility] Date/Time: Sep 14 2023 7:10P Dictated by : MIRACLE VARGAS MD This examination was interpreted and the report reviewed and electronically signed by: MIRACLE VARGAS MD on Sep 14 2023 7:11PM EST [facility] XR Knee - bilateral 4 Viewso n 09-13-2023 IMPRESSION: No acute osseous abnormality. Box Gluer: [facility] Transcribe Date/Time: Sep 13 2023 8:04P Dictated by : OTIS MONTENEGRO DO This examination was interpreted and the report reviewed and electronically signed by: OTIS MONTENEGRO DO on Sep 13 2023 8:06PM [facility] DIVISION OF RADIOLOGY * * *Final Report* [...] tibial tuberosity enthesophytes. DIVISION OF RADIOLOGY Provider, [facility]23 * * *Final Report* [...] enthesophytes. IMPRESSION IMPRESSION: No acute osseous abnormality. Box Gluer: [facility] Transcribe Date/Time: Sep 13 2023 8:04P Dictated by : OTIS MONTENEGRO DO This examination was interpreted and the report reviewed and electronically signed by: OTIS MONTENEGRO DO on Sep 13 2023 8:06PM EST [facility] XR Knee - bilateral 4 ViewsO rdered By: [facility] Provider on 09-13-2023 [facility] CNOVon 09-12-2023 [facility] BONNIE MARTINEZ ([id number]) 1955 M Date Time Provider Department 09/12/23 1:20 PM [facility] During your visit today, we recorded the following information about you: Pulse Respiration Blood pressure Weight 89/minute 16/minute 126/78 93 kg Justine Leary APRN.CNP 09/12/2023 1:40 PM Signed This is a 67 year old male who presents today with: Patient presents with: Acute Visit: Bilat knees painful HISTORY OF PRESENT ILLNESS: Bonnie Spann Juan is a 67 year old male. 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 PAST SURGICAL HISTORY OF Right 1985 right [...] distal aspect of the patella. Similar to [place]-Schlatter's disease. Nontender with palpation, no edema noted. [...] voices unders (more content not included)... Normal [facility] No Panel Informationon 09-11 Radiology Study observation (narrative) [facility] XR HIP ROSEY 5V PEL+ AP/LAT EA [...] the hips with no acute fractures seen Box Gluer: [facility] Transcribe Date/Time: Sep 14 2023 7:10P Dictated by : MIRACLE VARGAS MD This examination was interpreted and the report reviewed and electronically signed by: MIRACLE VARGAS MD on Sep 14 2023 7:11PM EST [id number] Normal [facility] XR KNEE 4V AP/PA/LAT/MERCH [facility] 09-12-2023 XR KNEE 4V AP/PA/LAT/MERCH ROSEY * [...] tuberosity enthesophytes. IMPRESSION: No acute osseous abnormality. Box Gluer: [facility] Transcribe Date/Time: Sep 13 2023 8:04P Dictated by : OTIS MONTENEGRO DO This examination was interpreted and the report reviewed and electronically signed by: OTIS MONTENEGRO DO on Sep 13 2023 8:06PM EST [id number] Normal [facility] CNTHERAPYon 04-12-2023 CNTHERAPY OT/PT/Speech Visit ( PTWS) ----- BONNIE MARTINEZ ([id number]) 1955 M Date Time Provider Department 04/12/23 9:30 AM JOLENE ROMERO PTWS Date Time Provider Department Center 04/12/2023 9:30 AM [id number], MARIAH PTWS [place] Reason for Visit: PT Discharge [752] Primary [...] - uses OTC Sleep-Aid nightly (Benadryl) ----- Range Aide: Addendum Therapy (PT/OT/Speech/Resp) ID: [id number] 04/12/2023 9:58 AM Author: JOLENE ROMERO Signed by JOLENE ROMERO PTA on 04/12/2023 at 9:58 AM * * * This document replaces document [id number] * * * Document text: Program_ID:[id number] Access Code: [email or web address] URL: [email or web address] Date: 04-12-2023 Prepared By: Bel Renee Program [...] - 2 sets - 10 reps Normal [facility] THERAPY NTon 04-12-2023 THERAPY NT HNO ID: [id number] Author: JOLENE ROMERO PTA Service: ? Author Type: Hot Baller Type: Therapy (PT/OT/Speech/Resp) Filed: 04/12/2023 09:38 Note Text: Program_ID:[id number] Access Code: [email or web address] URL: [email or web address]. [email or web address]/ Date: 04-12-2023 Prepared By: Bel Renee Program [...] - 1 sets - 3 reps Normal [facility] CNTHERAPYon 04-10-2023 CNTHERAPY OT/PT/Speech Visit ( PTWS) ----- BONNIE MARTINEZ ([id number]) 1955 M Date Time Provider Department 04/10/23 3:00 PM BEL RENEE Date Time Provider Department Center 04/10/2023 3:00 PM [id number] RENEE PTT[place] Reason for Visit: Physical Therapy [503] Primary [...] - uses OTC Sleep-Aid nightly (Benadryl) ----- Range Aide: Addendum Therapy (PT/OT/Speech/Resp) ID: [id number] 04/10/2023 3:22 PM Author: BEL RENEE Signed by BEL RENEE PT on 04/10/2023 at 3:22 PM * * * This document replaces document [id number] * * * Document text: Program_ID:[id number] Access Code: [email or web address] URL: [email or web address]/ Date: 04-10-2023 Prepared By: Bel Renee Program Notes Exercises - Standing Shoulder Posterior Capsule Stretch - 1-2 x daily - 7 x weekly - 3 sets - 1 reps - Doorway Pec Stretch at 60 Degrees Abduction with Arm Straight - 1-2 x daily - 7 x weekly - 3 sets - 1 reps Normal [facility] THERAPY NTon 04-10-2023 THERAPY NT HNO ID: [id number] Author: BEL RENEE PT Service: ? Author Type: Physical Therapist Type: Therapy (PT/OT/Speech/Resp) Filed: 04/10/2023 15:20 Note Text: Program_ID:[id number] Access Code: [email or web address] URL: [email or web address]. [email or web address]/ Date: 04-10-2023 Prepared By: Bel Renee Program Notes Exercises - Standing Shoulder Posterior Capsule Stretch - 1-2 x daily - 7 x weekly - 3 sets - 1 reps Normal [facility] CNTHERAPYon 04-04-2023 CNTHERAPY OT/PT/Speech Visit ( PTWS) ----- BONNIE MARTINEZ ([id number]) 1955 M Date Time Provider Department 04/04/23 8:15 AM BEL RENEE Date Time Provider Department Center 04/04/2023 8:15 AM [id number] RENEE [place] Reason for Visit: PT Eval [747] Primary Visit Diagnosis:Numbness of hand [R20.0] [...] - uses OTC Sleep-Aid nightly (Benadryl) ----- Range Aide: Addendum Therapy (PT/OT/Speech/Resp) ID: [id number] 04/04/2023 8:42 AM Author: BEL RENEE Signed by BEL RENEE PT on 04/04/2023 at 8:42 AM * * * This document replaces document [id number] * * * Document text: Program_ID:[id number] Access Code: [email or web address] URL: [email or web address] Date: 04-04-2023 Prepared By: Bel Renee Program Notes Exercises - Ulnar Nerve/Median Montverde- Low Level - 3-5 x daily - 7 x weekly - 2 sets - 10 reps - Seated Scapular Retraction - 2-3 x daily - 7 x weekly - 3 sets - 15 reps - Doorway Pec Stretch at 60 Degrees Abduction with Arm Straight - 2-3 x daily - 7 x weekly - 3 sets - 1 reps Normal [facility] THERAPY NTon 04-04-2023 THERAPY NT HNO ID: [id number] Author: BEL RENEE PT Service: ? Author Type: Physical Therapist Type: Therapy (PT/OT/Speech/Resp) Filed: 04/04/2023 08:40 Note Text: Program_ID:[id number] Access Code: [email or web address] URL: [email or web address] Date: 04-04-2023 Prepared By: Bel O'Derrick Program Notes Exercises - Ulnar Nerve/Median Montverde- Low Level - 3-5 x daily - 7 x weekly - 2 sets - 10 reps Normal [facility] CNOVon 01-15-2023 CNOV Office Visit (ORTHWS ) ----- BONNIE MARTINEZ ([id number]) 1955 M Date Time Provider Department 01/15/23 11:00 AM JASMINA REYES During your visit today, we recorded the following information about you: Daria Jaramillo RN 01/15/2023 1:59 PM Signed Patient presents with: Right Shoulder - New: Right shoulder pain Referred by TARAS Snell 11/20/2022 Last seen by BP 02/24/2019 bilateral [...] Jasmina Reyes PA-C Department of Orthopaedics Orthopaedics [facility] [address] Dept: [phone] Dept January 15, [address] Justine Leary for an opinion regarding right shoulder pain. My final recommendations will be communicated back to the requesting physician by way of shared Medical record or letter to requesting physician via US mail. CHIEF COMPLAINT: New of the Right Shoulder (Right shoulder pain/Referred by Thelma Leary APRN/Xray 11/20/2022/Last seen by BP 02/24/2019 bilateral ulnar [...] space narrowing and bilateral neural foraminal narrowing. Box Gluer: [facility] Transcribe Date/Time: Nov 21 2022 11:36A Dictated by : KAYLI (more content not included)... Normal [facility] XR Cervical spine AP and Lat eral and obliqueon 11-21-2022 IMPRESSION: Cervical spine degenerative changes with multilevel disc space narrowing and bilateral neural foraminal narrowing. Box Gluer: [facility] Transcribe Date/Time: Nov 21 2022 11:36A Dictated by : JEANNETTE TUCKER MD This examination was interpreted and the report reviewed and electronically signed by: JEANNETTE TUCKER MD on Nov 21 2022 11:43AM [facility] DIVISION OF RADIOLOGY * * *Final Report* [...] tissues are normal. DIVISION OF RADIOLOGY Provider, Rose Garcia - 11/21/2022 * * *Final Report* * [...] space narrowing and bilateral neural foraminal narrowing. Box Gluer: [facility] Transcribe Date/Time: Nov 21 2022 11:36A Dictated by : JEANNETTE TUCKER MD This examination was interpreted and the report reviewed and electronically signed by: JEANNETTE TUCKER MD on Nov 21 2022 11:43AM [facility] XR Shoulder - right 3 Viewso n 11-21-2022 IMPRESSION: No acute osseous abnormality Box Gluer: [facility] Transcribe Date/Time: Nov 21 2022 4:33P Dictated by : SHELIA HIGGINS MD This examination was interpreted and the report reviewed and electronically signed by: SHELIA HIGGINS MD on Nov 21 2022 4:34PM [facility] DIVISION OF RADIOLOGY * * *Final Report* [...] spaces are maintained. DIVISION OF RADIOLOGY [facility]21/[facility]22 * * *Final Report* [...] maintained. IMPRESSION IMPRESSION: No acute osseous abnormality Box Gluer: [facility] Transcribe Date/Time: Nov 21 2022 4:33P Dictated by : SHELIA HIGGINS MD This examination was interpreted and the report reviewed and electronically signed by: SHELIA HIGGINS MD on Nov 21 2022 4:34PM EST [facility] XR Shoulder - right 3 ViewsO rdered By: Ccf Provider on 11-21-2022 [facility] No Panel Informationon 11-20 Radiology Study observation (narrative) [facility] CBC WITH MANUAL DIFF ([id number]) Ordered By: Hide And Skin Processing Worker on 06-24-2013 Basophils (Bld) [#/Vol] 0.0 {x10E3/uL} Normal 0.0-0.2 [facility] Work Phone: Comment on above: PATIENT WAS FASTINGP ERFORMED BY: JAMA [facility] Idmtpj5755 [facility] [id number] Information: [id number] Basophils/100 WBC (Bld) 0 % Normal 0-3 [facility] Work Phone: Comment on above: PATIENT WAS FASTINGP ERFORMED BY: [address] [id number] Information: [id number] Eosinophils (Bld) [#/Vol] 0.2 {x10E3/uL} Normal 0.0-0.4 [facility] Work Phone: Comment on above: PATIENT WAS FASTINGP ERFORMED BY: [address] [id number] Information: [id number] Eosinophils/100 WBC (Bld) 3 % Normal 0-5 [facility] Work Phone: Comment on above: PATIENT WAS FASTINGP ERFORMED BY: [address] [id number] Information: [id number] Erythrocyte distribution width (RBC) [Ratio] 13.0 % Normal 12.3-15.4 [facility] Work Phone: Comment on above: PATIENT WAS FASTINGP ERFORMED BY: [address] [id number] Information: [id number] Hematocrit (Bld) [Volume fraction] 42.7 % Normal 37.5-51.0 [facility] Work Phone: Comment on above: PATIENT WAS FASTINGP ERFORMED BY: [address] [id number] Information: [id number] Hemoglobin (Bld) [Mass/Vol] 14.1 g/dL Normal 12.6-17.7 [facility] Work Phone: Comment on above: PATIENT WAS FASTINGP ERFORMED BY: [address] [id number] Information: [id number] Immature granulocytes (Bld) [#/Vol] 0.0 {x10E3/uL} Normal 0.0-0.1 [facility] Work Phone: Comment on above: PATIENT WAS FASTINGP ERFORMED BY: JAMA [facility]6370 [facility] [id number] Information: [id number] Immature granulocytes/100 WBC (Bld) 0 % Normal 0-2 [facility] Work Phone: Comment on above: PATIENT WAS FASTINGP ERFORMED BY: [address] [id number] Information: [id number] Lymphocytes (Bld) [#/Vol] 2.1 {x10E3/uL} Normal 0.7-3.1 [facility] Work Phone: Comment on above: PATIENT WAS FASTINGP ERFORMED BY: [address] [id number] Information: [id number] Lymphocytes/100 WBC (Bld) 32 % Normal 14-46 [facility] Work Phone: Comment on above: PATIENT WAS FASTINGP ERFORMED BY: [address] [id number] Information: [id number] MCH (RBC) [Entitic mass] 29.4 pg Normal 26.6-33.0 [facility] Work Phone: Comment on above: PATIENT WAS FASTINGP ERFORMED BY: [address] [id number] Information: [id number] MCHC (RBC) [Mass/Vol] 33.0 g/dL Normal 31.5-35.7 [facility] Internal [facility] Work Phone: Comment on above: PATIENT WAS FASTINGP ERFORMED BY: [address] [id number] Information: [id number] MCV (RBC) [Entitic vol] 89 fL Normal 79-97 [facility] Work Phone: Comment on above: PATIENT WAS FASTINGP ERFORMED BY: [address] [place] [id number] Information: [id number] Monocytes (Bld) [#/Vol] 0.6 {x10E3/uL} Normal 0.1-0.9 [facility] Work Phone: Comment on above: PATIENT WAS FASTINGP ERFORMED BY: [facility]6[address] [facility] [id number] Information: [id number] Monocytes/100 WBC (Bld) 8 % Normal 4-12 [facility] Work Phone: Comment on above: PATIENT WAS FASTINGP ERFORMED BY: [facility]6[address] [facility] [id number] Information: 276884,[id number] Neutrophils (Bld) [#/Vol] 3.8 {x10E3/uL} Normal 1.4-7.0 [facility] Work Phone: Comment on above: PATIENT WAS FASTINGP ERFORMED BY: [facility]6[address] [facility] [id number] Information: [id number],[id number] Neutrophils/100 WBC (Bld) 57 % Normal 40-74 [facility] Work Phone: Comment on above: PATIENT WAS FASTINGP ERFORMED BY: [facility] Tmfqfd3532 [facility] [id number] Information: [id number],[id number] Platelets (Bld) [#/Vol] 228 {x10E3/uL} Normal 155-379 [facility] Work Phone: Comment on above: PATIENT WAS FASTINGP ERFORMED BY: [facility] Vnhdzb3105 [facility] [id number] Information: [id number] RBC (Bld) [#/Vol] 4.79 {x10E6/uL} Normal 4.14-5.80 [facility] Internal Medicine Work Phone: Comment on above: PATIENT WAS FASTINGP ERFORMED BY: JAMA N[address]ira[address] [facility] [place] [id number] Information: 507604,[id number] WBC (Bld) [#/Vol] 6.7 {x10E3/uL} Normal 3.4-10.8 [facility] Internal Medicine Work Phone: Comment on above: PATIENT WAS FASTINGP ERFORMED BY: JAMA Jiménezlin[address] [facility] [place] [id number] Information: [id number] LIPID PANEL (12189)Ordered B y: Hide And Skin Processing Worker on 06-24-2013 Cholesterol [Mass/Vol] 155 mg/dL Normal 100-199 [facility] Work Phone: Comment on above: PATIENT WAS FASTINGP ERFORMED BY: JAMA Jiménezlin[address] [facility] [place] [id number] Cholesterol in HDL [Mass/Vol] 45 mg/dL Normal [facility] Work Phone: Comment on above: According to ATP-III Guidelines, HDL-C >59 mg/dL is considered anegative risk factor for CHD. PATIENT WAS FASTINGP ERFORMED BY: JAMA Teresa Jiménezlin[address] [facility] [place] [id number] Cholesterol in LDL [Mass/Vol] 89 mg/dL Normal 0-99 [facility] Work Phone: Comment on above: PATIENT WAS FASTINGP ERFORMED BY: JAMA [facility] Zepbza[address] [facility] [place] [id number] Cholesterol in LDL/Cholesterol in HDL [Mass ratio] 2.0 {ratio_units} Normal 0.0-3.6 [facility] Work Phone: Comment on above: PATIENT WAS FASTINGP ERFORMED BY: JAMA [facility] Rtwdvq7028 [address]enez RoadDublin [place] [id number] Cholesterol in VLDL [Mass/Vol] 21 mg/dL Normal 5-40 [facility] Work Phone: Comment on above: PATIENT WAS FASTINGP ERFORMED BY: JAMA [facility] Zgohly0733 [address] RoadDublin [place] [id number] Triglyceride [Mass/Vol] 104 mg/dL Normal 0-149 [facility] Work Phone: Comment on above: PATIENT WAS FASTINGP ERFORMED BY: JAMA [facility] Kqkldb6703 [address] RoadDublin [place] [id number] METABOLIC PANEL, COMPREHENSI VE (26421)Ordered By: Hide And Skin Processing Worker on 06-24-2013 Albumin [Mass/Vol] 4.5 g/dL Normal 3.5-5.5 [facility] Internal Medicine Work Phone: Comment on above: PATIENT WAS FASTINGP ERFORMED BY: JAMA [facility] Eudhnn0202 [address]enez RoadDublin [place] [id number] Albumin/Globulin [Mass ratio] 2.1 {ratio} Normal 1.1-2.5 [facility] Work Phone: Comment on above: PATIENT WAS FASTINGP ERFORMED BY: JAMA [facility] Jnkhwm6554 [address] RoadDublin [place] [id number] ALP [Catalytic activity/Vol] 57 [iU]/L Normal 39-117 [facility] Work Phone: Comment on above: PATIENT WAS FASTINGP ERFORMED BY: JAMA [facility] Qewvyn7417 [address] RoadDublin [place] [id number] ALT [Catalytic activity/Vol] 23 [iU]/L Normal 0-44 [facility] Work Phone: Comment on above: PATIENT WAS FASTINGP ERFORMED BY: JAMA [facility] Ywczlm3374 [address] RoadDublin [place] [id number] AST [Catalytic activity/Vol] 20 [iU]/L Normal 0-40 [facility] Work Phone: Comment on above: PATIENT WAS FASTINGP ERFORMED BY: CB [facility] Vgfejo4162 [address] RoadDublin [place] [id number] Bilirubin [Mass/Vol] 0.4 mg/dL Normal 0.0-1.2 [facility] Work Phone: Comment on above: PATIENT WAS FASTINGP ERFORMED BY: CB [facility] Dtbess3319 [address] RoadDublin [place] [id number] Calcium [Mass/Vol] 9.8 mg/dL Normal 8.7-10.2 [facility] Internal Medicine Work Phone: Comment on above: PATIENT WAS FASTINGP ERFORMED BY: CB [facility] Lcqvhy0838 [address] RoadDublin [place] [id number] Chloride [Moles/Vol] 103 mmol/L Normal 97-108 Comp rehensive Internal Medicine Work Phone: Comment on above: PATIENT WAS FASTINGP ERFORMED BY: CB [facility] Ykeccp4496 [address] Roadblin [place] [id number] CO2 [Moles/Vol] 22 mmol/L Normal 19-28 [facility] Internal [facility] Work Phone: Comment on above: PATIENT WAS FASTINGP ERFORMED BY: CB [facility] Acrdpj2730 [address] RoadC[facility] Med[facility] Pointin [place] [id number] Creatinine [Mass/Vol] 0.94 mg/dL Normal 0.76-1.27 [facility] Internal Medicine Work Phone: Comment on above: PATIENT WAS FASTINGP ERFORMED BY: CB [facility] Iigxvy9886 [address] RoadCone Health Medcenter [facility] Pointin [place] [id number] GFR/1.73 sq M predicted among blacks CKD-EPI (S/P/Bld) [Vol rate/Area] 105 mL/min/1.73 Normal [facility] Work Phone: Comment on above: PATIENT WAS FASTINGP ERFORMED BY: [facility] Wakhjb1358 [address] RoadC[facility] Health Medcenter [facility] Pointin [place] [id number] GFR/1.73 sq M predicted among non-blacks CKD-EPI (S/P/Bld) [Vol rate/Area] 91 mL/min/1.73 Normal [facility] Work Phone: Comment on above: PATIENT WAS FASTINGP ERFORMED BY: CB [facility] Gfysxl1904 [address] RoadCone Health Med[facility] Pointin [place] [id number] Globulin (S) [Mass/Vol] 2.1 g/dL Normal 1.5-4.5 [facility] Work Phone: Comment on above: PATIENT WAS FASTINGP ERFORMED BY: CB [facility] Iawbof8738 [address] RoadDublin [place] [id number] Glucose [Mass/Vol] 107 mg/dL Abnormal 65-99 [facility] Internal Medicine Work Phone: Comment on above: PATIENT WAS FASTINGP ERFORMED BY: JAMA LabRoger JiménezZgvudj5868 [address] RoadDublin [place] [id number] Potassium [Moles/Vol] 4.4 mmol/L Normal 3.5-5.2 [facility] Internal Medicine Work Phone: Comment on above: PATIENT WAS FASTINGP ERFORMED BY: JAMA [facility] Smmnrv0760 [address] RoadDublin [place] [id number] Protein [Mass/Vol] 6.6 g/dL Normal 6.0-8.5 [facility] Internal Medicine Work Phone: Comment on above: PATIENT WAS FASTINGP ERFORMED BY: JAMA LabRoger JiménezUtmqpd7408 [address] Roadblin [place] [id number] Sodium [Moles/Vol] 138 mmol/L Normal 134-144 [facility] Internal Medicine Work Phone: Comment on above: PATIENT WAS FASTINGP ERFORMED BY: JAMA [facility] Zgbadi6960 [address] Roadblin [place] [id number] Urea nitrogen [Mass/Vol] 17 mg/dL Normal 6-24 [facility] Internal Medicine Work Phone: Comment on above: PATIENT WAS FASTINGP ERFORMED BY: JAMA [facility] Fcvopc0581 [address] Roadblin [place] [id number] Urea nitrogen/Creatinine [Mass ratio] 18 mg/mg Normal 9-20 [facility] Internal Medicine Work Phone: Comment on above: PATIENT WAS FASTINGP ERFORMED BY: JAMA [facility] Jzsxfq[address] [facility] HospitalDublin [place] [id number] MICROALBUMINOrdered By: Syst em Tower Technician on 06-24-2013 Albumin DL <= 20 mg/L (U) [Mass/Vol] 7.2 ug/mL Normal 0.0-17.0 [facility] Work Phone: Comment on above: PATIENT WAS FASTINGP ERFORMED BY: JAMA [facility] Ggsnum7766 [address] RoadDublin [place] [id number] Albumin/Creatinine (U) [Mass ratio] 6.9 {mg/g_creat} Normal 0.0-30.0 [facility] Work Phone: Comment on above: PATIENT WAS FASTINGP ERFORMED BY: ShopRunnerGallup Indian Medical CenterBzxumm2907 [facility] [id number] Creatinine (U) [Mass/Vol] 104.5 mg/dL Normal 22.0-328.0 [facility] Work Phone: Comment on above: PATIENT WAS FASTINGP ERFORMED BY: [employer] Xzhjvc3059 [facility] [id number] PSA (PROSTATE SPECIFIC ANTIG EN) (V76.44)Ordered By: Hide And Skin Processing Worker on 06-24-2013 Prostate specific Ag [Mass/Vol] 1.7 ng/mL Normal 0.0-4.0 [facility] Work Phone: Comment on above: Steve ECLIA methodol ogy. .According to the [place] [employer], Serum PSA shoulddecrease and remain [...] dx screening; PATIEN T WAS FASTINGPERFORMED BY: [employer] Uczfzm7139 [facility] [id number] TSH ([id number])Ordered By: Causecast m Tower Technician on 06-24-2013 TSH Qn 1.230 {uIU/mL} Normal 0.450-4.50 0 [facility] Work Phone: Comment on above: PATIENT WAS FASTINGP ERFORMED BY: ShopRunnerGallup Indian Medical CenterCnzdsp2045 [facility] [id number] URINALYSIS, W/ MICRO ([id number]) Ordered By: Hide And Skin Processing Worker on 06-24-2013 Appearance (U) Clear Normal Comprehens johann Internal Medicine Work Phone: Comment on above: PATIENT WAS FASTINGP ERFORMED BY: JAMA LabRoger Skymti0630 [address] RoadDublin [place] [id number] Bilirubin Ql (U) Negative Normal Comprehe nsive [facility] Medicine Work Phone: Comment on above: PATIENT WAS FASTINGP ERFORMED BY: JAMA Dylanthania JiménezQiezyh8938 [address] RoadDublin [place] [id number] Color (U) Yellow Normal [facility] Work Phone: Comment on above: PATIENT WAS FASTINGP ERFORMED BY: JAMA LabAdarshthania JiménezApjqbt7530 [address] RoadDublin [place] [id number] Glucose Ql (U) Negative Normal Comprehens johann [facility] Medicine Work Phone: Comment on above: PATIENT WAS FASTINGP ERFORMED BY: JAMA RadhaRoger JiménezTuzwxn7199 [address] RoadDublin [place] [id number] Hemoglobin Ql (U) Negative Normal Compreh ensive [facility] Work Phone: Comment on above: PATIENT WAS FASTINGP ERFORMED BY: JAMA Dylanthania JiménezFfikfq5230 [address] RoadDublin [place] [id number] Ketones Ql (U) Negative Normal Comprehens johann [facility] Work Phone: Comment on above: PATIENT WAS FASTINGP ERFORMED BY: JAMA Jiménezlin6[address] RoadDublin [place] [id number] Leukocyte esterase Test strip Ql (U) Negative Normal [facility] Work Phone: Comment on above: PATIENT WAS FASTINGP ERFORMED BY: JAMA Jiménezlin6[address] RoadDublin [place] [id number] Microscopic observation LM Nom (Urine sed) See below: Normal [facility] Work Phone: Comment on above: PATIENT WAS FASTINGP ERFORMED BY: JAMA [facility] Opwlrf2378 [address] RoadDublin [place] [id number] Microscopic observation LM Nom (Urine sed) MICRON Normal [facility] Work Phone: Comment on above: Microscopic follows if indicated. PATIENT WAS FASTINGP ERFORMED BY: JAMA [facility] Kjtmql3987 [address] RoadDublin [place] [id number] Nitrite Ql (U) Negative Normal Comprehens johann Internal Medicine Work Phone: Comment on above: PATIENT WAS FASTINGP ERFORMED BY: LabDeckerville Community [facility] [id number] pH (U) 5.5 [pH] Normal 5.0-7.5 [facility] Work Phone: Comment on above: PATIENT WAS FASTINGP ERFORMED BY: LabCoHudson [facility] Meadowview HospitalUcqxwa0268 [facility] [id number] Protein Ql (U) Negative Normal Comprehens johann Internal Medicine Work Phone: Comment on above: PATIENT WAS FASTINGP ERFORMED BY: [facility]6370 [facility] [id number] Specific gravity (U) [Rel density] 1.018 1 Normal 1.005-1.03 0 [facility] Work Phone: Comment on above: PATIENT WAS FASTINGP ERFORMED BY: [facility]6370 [facility] [id number] Urobilinogen Test strip (U) [Mass/Vol] 0.2 mg/dL Normal 0.0-1.9 Comprehensi Internal Medicine Work Phone: Comment on above: PATIENT WAS FASTINGP ERFORMED BY: [facility]6370 [facility] [id number] HgA1C , Office ([phone])Ordere d By: Marycarmen Robles on 06-11-2013 HbA1c (Bld) [Mass fraction] 5.8 % Normal 4.6 - 7.1 [facility] Work Phone: Blood Glucose , Office ([phone])Ordered By: Yudith Vaz on 07-08-2012 Glucose Glucometer (BldC) [Moles/Vol] 142 1 Normal [facility] Work Phone: HgA1C , Office ([phone])Ordere d By: Yudith Vaz on 07-08-2012 HbA1c (Bld) [Mass fraction] 5.7 % Normal 4.6 - 7.1 [facility] Work Phone: CBC WITH MANUAL DIFF ([id number]) Ordered By: Hide And Skin Processing Worker on 06-28-2012 Basophils (Bld) [#/Vol] 0.0 {x10E3/uL} Normal 0.0-0.2 [facility] Work Phone: Comment on above: PATIENT WAS FASTINGP ERFORMED BY: [facility]Co Dfjrbq8616 [facility] [place] [id number] Information: [id number] Basophils/100 WBC (Bld) 0 % Normal 0-3 [facility] Work Phone: Comment on above: PATIENT WAS FASTINGP ERFORMED BY: LabCo Xqcmke3988 [facility] [id number] Information: [id number] Eosinophils (Bld) [#/Vol] 0.3 {x10E3/uL} Normal 0.0-0.4 [facility] Work Phone: Comment on above: PATIENT WAS FASTINGP ERFORMED BY: [facility]Co Bkksvq8409 [address] [facility] [id number] Information: [id number],[id number] Eosinophils/100 WBC (Bld) 3 % Normal 0-7 [facility] Work Phone: Comment on above: PATIENT WAS FASTINGP ERFORMED BY: LabCoGallup Indian Medical CenterWvuqvt9795 [facility] [id number] Information: [id number] Erythrocyte distribution width (RBC) [Ratio] 13.3 % Normal 12.3-15.4 [facility] Work Phone: Comment on above: PATIENT WAS FASTINGP ERFORMED BY: [facility] Jbhciz0096 [address] [facility] [id number] Information: [id number] Hematocrit (Bld) [Volume fraction] 43.2 % Normal 37.5-51.0 [facility] Work Phone: Comment on above: PATIENT WAS FASTINGP ERFORMED BY: [facility] Iohtek4834 [address] [facility] [id number] Information: [id number] Hemoglobin (Bld) [Mass/Vol] 14.3 g/dL Normal 12.6-17.7 [facility] Work Phone: Comment on above: PATIENT WAS FASTINGP ERFORMED BY: [place] 0811070 [facility] [id number] Information: [id number] Immature granulocytes (Bld) [#/Vol] 0.0 {x10E3/uL} Normal 0.0-0.1 [facility] Work Phone: Comment on above: PATIENT WAS FASTINGP ERFORMED BY: [place] 0811070 [facility] [id number] Information: [id number] Immature granulocytes/100 WBC (Bld) 0 % Normal 0-2 [facility] Work Phone: Comment on above: PATIENT WAS FASTINGP ERFORMED BY: [facility]6370 [facility] [id number] Information: [id number] Lymphocytes (Bld) [#/Vol] 2.9 {x10E3/uL} Normal 0.7-4.5 [facility] Work Phone: Comment on above: PATIENT WAS FASTINGP ERFORMED BY: [facility]6370 [facility] [id number] Information: [id number] Lymphocytes/100 WBC (Bld) 38 % Normal 14-46 [facility] Work Phone: Comment on above: PATIENT WAS FASTINGP ERFORMED BY: [place] 0811070 [facility] [id number] Information: 345855,[id number] MCH (RBC) [Entitic mass] 29.4 pg Normal 26.6-33.0 [facility] Work Phone: Comment on above: PATIENT WAS FASTINGP ERFORMED BY: [address] [id number] Information: 707449,[id number] MCHC (RBC) [Mass/Vol] 33.1 g/dL Normal 31.5-35.7 [facility] Internal Medicine Work Phone: Comment on above: PATIENT WAS FASTINGP ERFORMED BY: JAMA [place] [id number] [facility] [id number] Information: 801396,[id number] MCV (RBC) [Entitic vol] 89 fL Normal 79-97 [facility] Work Phone: Comment on above: PATIENT WAS FASTINGP ERFORMED BY: [address] [id number] Information: [id number] Monocytes (Bld) [#/Vol] 0.7 {x10E3/uL} Normal 0.1-1.0 [facility] Work Phone: Comment on above: PATIENT WAS FASTINGP ERFORMED BY: [place] 0811070 [facility] [id number] Information: [id number] Monocytes/100 WBC (Bld) 9 % Normal 4-13 [facility] Work Phone: Comment on above: PATIENT WAS FASTINGP ERFORMED BY: [address] [id number] Information: [id number] Neutrophils (Bld) [#/Vol] 3.7 {x10E3/uL} Normal 1.8-7.8 [facility] Work Phone: Comment on above: PATIENT WAS FASTINGP ERFORMED BY: [facility]6370 [facility] [id number] Information: [id number] Neutrophils/100 WBC (Bld) 50 % Normal 40-74 [facility] Work Phone: Comment on above: PATIENT WAS FASTINGP ERFORMED BY: [place] 0811070 [facility] [id number] Information: [id number] Platelets (Bld) [#/Vol] 206 {x10E3/uL} Normal 140-415 [facility] Work Phone: Comment on above: PATIENT WAS FASTINGP ERFORMED BY: JAMA Nogueira6370 [facility] [id number] Information: [id number],[id number] RBC (Bld) [#/Vol] 4.86 {x10E6/uL} Normal 4.14-5.80 [facility] Internal Medicine Work Phone: Comment on above: PATIENT WAS FASTINGP ERFORMED BY: JAMA [facility] Ipvmri9142 [place] [facility] [id number] Information: 570704,[id number] WBC (Bld) [#/Vol] 7.5 {x10E3/uL} Normal 4.0-10.5 [facility] Internal Medicine Work Phone: Comment on above: PATIENT WAS FASTINGP ERFORMED BY: JAMA [facility]Do[facility] Fzaeuq9905 [facility] [id number] Information: [id number] LIPID PANEL (35663)Ordered B y: [employer] Skin Processing Worker on 06-28-2012 Cholesterol [Mass/Vol] 153 mg/dL Normal 100-199 [facility] Work Phone: Comment on above: PATIENT WAS FASTINGP ERFORMED BY: JAMA [facility] Epswuf3837 [facility] [id number] Cholesterol in HDL [Mass/Vol] 48 mg/dL Normal [facility] Work Phone: Comment on above: According to ATP-III Guidelines, HDL-C >59 mg/dL is considered anegative risk factor for CHD. PATIENT WAS FASTINGP ERFORMED BY: JAMA [facility] Csyoil2048 [address] [facility] [id number] Cholesterol in LDL [Mass/Vol] 85 mg/dL Normal 0-99 [facility] Work Phone: Comment on above: PATIENT WAS FASTINGP ERFORMED BY: [facility] Fncwao3878 [place] [facility] [id number] Cholesterol in LDL/Cholesterol in HDL [Mass ratio] 1.8 {ratio_units} Normal 0.0-3.6 [facility] Work Phone: Comment on above: PATIENT WAS FASTINGP ERFORMED BY: JAMA LabRoger JiménezBjaaej7975 Jimenez RoadDublin [place] [id number] Cholesterol in VLDL [Mass/Vol] 20 mg/dL Normal 5-40 [facility] Work Phone: Comment on above: PATIENT WAS FASTINGP ERFORMED BY: JAMA LabRoger JiménezTrrnoe6259 [address] [facility] [id number] Triglyceride [Mass/Vol] 98 mg/dL Normal 0-149 [facility] Work Phone: Comment on above: PATIENT WAS FASTINGP ERFORMED BY: JAMA Jiménezlin6370 [place] [facility] [id number] METABOLIC PANEL, COMPREHENSI VE (30803)Ordered By: Hide [employer] Skin Processing Worker on 06-28-2012 Albumin [Mass/Vol] 4.9 g/dL Normal 3.5-5.5 [facility] Internal Medicine Work Phone: Comment on above: PATIENT WAS FASTINGP ERFORMED BY: JAMA Jiménezlin6370 [facility] [facility] [place] [id number] Albumin/Globulin [Mass ratio] 2.1 {ratio} Normal 1.1-2.5 [facility] Work Phone: Comment on above: PATIENT WAS FASTINGP ERFORMED BY: JAMA LabAdarsh Hxsmqi7093 [facility] [facility] [place] [id number] ALP [Catalytic activity/Vol] 54 [iU]/L Normal 25-150 [facility] Work Phone: Comment on above: PATIENT WAS FASTINGP ERFORMED BY: JAMA LabCothania JiménezJiqiiu0673 [address] [facility] Centerbl[facility] [place] [id number] ALT [Catalytic activity/Vol] 31 [iU]/L Normal 0-44 [facility] Work Phone: Comment on above: PATIENT WAS FASTINGP ERFORMED BY: JAMA LabCo Ixbpxv0364 [address]enez RoadDublin [place] [id number] AST [Catalytic activity/Vol] 25 [iU]/L Normal 0-40 [facility] Internal Medicine Work Phone: Comment on above: PATIENT WAS FASTINGP ERFORMED BY: JAMA LabCo Oauhkd9290 Jimenez RoadDublin [place] [id number] Bilirubin [Mass/Vol] 0.8 mg/dL Normal 0.0-1.2 [facility] Work Phone: Comment on above: PATIENT WAS FASTINGP ERFORMED BY: LabDoctors [facility] Wwpqwn4841 Jimenez RoadDublin [place] [id number] Calcium [Mass/Vol] 9.7 mg/dL Normal 8.7-10.2 [facility] Internal Medicine Work Phone: Comment on above: PATIENT WAS FASTINGP ERFORMED BY: JAMA LabDo[facility] Bywtdj2488 Jimenez RoadDuin [place] [id number] Chloride [Moles/Vol] 102 mmol/L Normal 97-108 [facility] Internal Medicine Work Phone: Comment on above: PATIENT WAS FASTINGP ERFORMED BY: LabDo[facility] Uwcsnw1914 Jimenez RoadDublin [place] [id number] CO2 [Moles/Vol] 23 mmol/L Normal 20-32 [facility] Internal Medicine Work Phone: Comment on above: PATIENT WAS FASTINGP ERFORMED BY: LabDo[facility] Dsqynu4586 Jimenez RoadDublin [place] [id number] Creatinine [Mass/Vol] 1.05 mg/dL Normal 0.76-1.27 [facility] Internal Medicine Work Phone: Comment on above: PATIENT WAS FASTINGP ERFORMED BY: LabDoctors [facility] Gaqpbi0232 Jimenez RoadDublin [place] [id number] GFR/1.73 sq M predicted among blacks CKD-EPI (S/P/Bld) [Vol rate/Area] 93 mL/min/1.73 Normal [facility] Internal Medicine Work Phone: Comment on above: PATIENT WAS FASTINGP ERFORMED BY: LabCo Ofdlau7659 Jim[address] RoadDublin [place] [id number] GFR/1.73 sq M predicted among non-blacks CKD-EPI (S/P/Bld) [Vol rate/Area] 80 mL/min/1.73 Normal [facility] Internal Medicine Work Phone: Comment on above: PATIENT WAS FASTINGP ERFORMED BY: JAMA LabRoger JiménezAynvgf2379 [facility] [id number] Globulin (S) [Mass/Vol] 2.3 g/dL Normal 1.5-4.5 [facility] Internal Medicine Work Phone: Comment on above: PATIENT WAS FASTINGP ERFORMED BY: JAMA LabDo[facility] Emtppy3360 [address] [facility] [id number] Glucose [Mass/Vol] 100 mg/dL Abnormal 65-99 [facility] Internal Medicine Work Phone: Comment on above: PATIENT WAS FASTINGP ERFORMED BY: JAMA GarciaDoctors Hospital [facility] Cgmtmv3035 [facility] [id number] Potassium [Moles/Vol] 4.0 mmol/L Normal 3.5-5.2 [facility] Internal Medicine Work Phone: Comment on above: PATIENT WAS FASTINGP ERFORMED BY: JAMA Richardson Rdquck1594 [facility] [id number] Protein [Mass/Vol] 7.2 g/dL Normal 6.0-8.5 [facility] Internal Medicine Work Phone: Comment on above: PATIENT WAS FASTINGP ERFORMED BY: JAMA LabDo[facility] Owhnuh2588 [address] [facility] [id number] Sodium [Moles/Vol] 137 mmol/L Normal 134-144 [facility] Internal Medicine Work Phone: Comment on above: PATIENT WAS FASTINGP ERFORMED BY: JAMA LabDo[facility] Vlqpmw5793 [address] [facility] [id number] Urea nitrogen [Mass/Vol] 17 mg/dL Normal 6-24 [facility] Internal Medicine Work Phone: Comment on above: PATIENT WAS FASTINGP ERFORMED BY: JAMA LabDoctors [facility] Rdntat1295 [address] [facility] [id number] Urea nitrogen/Creatinine [Mass ratio] 16 mg/mg Normal 9-20 [facility] Work Phone: Comment on above: PATIENT WAS FASTINGP ERFORMED BY: JAMA Jiménezlin6370 [facility] [facility]in [place] [id number] MICROALBUMINOrdered By: Syst em Tower Technician on 06-28-2012 Albumin DL <= 20 mg/L (U) [Mass/Vol] 5.8 ug/mL Normal 0.0-17.0 [facility] Work Phone: Comment on above: PATIENT WAS FASTINGP ERFORMED BY: JAMA Jiménezlin6370 [facility] [id number] Albumin/Creatinine (U) [Mass ratio] 4.0 {mg/g_creat} Normal 0.0-30.0 [facility] Work Phone: Comment on above: PATIENT WAS FASTINGP ERFORMED BY: JAMA Jiménezlin6370 [facility] [id number] Creatinine (U) [Mass/Vol] 143.7 mg/dL Normal 22.0-328.0 [facility] Work Phone: Comment on above: PATIENT WAS FASTINGP ERFORMED BY: JAMA Jiménezlin6370 [facility] [id number] TSH (57252)Ordered By: Bel Vinoe Tower Technician on 06-28-2012 TSH Qn 1.580 {uIU/mL} Normal 0.450-4.50 0 [facility] Work Phone: Comment on above: PATIENT WAS FASTINGP ERFORMED BY: JAMA LabRoger JiménezNnzenc9015 [facility] [id number] URINALYSIS, W/ MICRO (65174) Ordered By: Hide And Skin Processing Worker on 06-28-2012 Appearance (U) Clear Normal Comprehens johann Internal Medicine Work Phone: Comment on above: PATIENT WAS FASTINGP ERFORMED BY: JAMA LabAdarsh Dluffw1805 [address] [facility] [id number] Bilirubin Ql (U) Negative Normal Comprehe nsive Internal Medicine Work Phone: Comment on above: PATIENT WAS FASTINGP ERFORMED BY: JAMA LabAdarshrp Ulnkgu2703 Jim[address] RoadDublin [place] [id number] Color (U) Yellow Normal [facility] Work Phone: Comment on above: PATIENT WAS FASTINGP ERFORMED BY: JAMA LabRoger JiménezJpsuay2932 Jim[address] RoadDublin [place] [id number] Glucose Ql (U) Negative Normal Comprehens johann Internal Medicine Work Phone: Comment on above: PATIENT WAS FASTINGP ERFORMED BY: JAMA LabCothania JiménezZeucbn2424 Jim[address] RoadDublin [place] [id number] Hemoglobin Ql (U) Negative Normal Compreh ensive Internal Medicine Work Phone: Comment on above: PATIENT WAS FASTINGP ERFORMED BY: JAMA Jiménezlin6370 [address] RoadDublin [place] [id number] Ketones Ql (U) Negative Normal Comprehens johann Internal Medicine Work Phone: Comment on above: PATIENT WAS FASTINGP ERFORMED BY: JAMA Jiménezlin6370 [address] RoadDublin [place] [id number] Leukocyte esterase Test strip Ql (U) Negative Normal [facility] Work Phone: Comment on above: PATIENT WAS FASTINGP ERFORMED BY: JAMA Nogueira6370 [address] RoadDublin [place] [id number] Microscopic observation LM Nom (Urine sed) See below: Normal [facility] Work Phone: Comment on above: PATIENT WAS FASTINGP ERFORMED BY: JAMA [facility] Iimpln2057 [address] RoadDublin [place] [id number] Microscopic observation LM Nom (Urine sed) MICRON Normal [facility] Work Phone: Comment on above: Microscopic follows if indicated. PATIENT WAS FASTINGP ERFORMED BY: JAMA [facility] Obqbxg3611 [address] RoadDublin [place] [id number] Nitrite Ql (U) Negative Normal Comprehens johann Internal Medicine Work Phone: Comment on above: PATIENT WAS FASTINGP ERFORMED BY: JAMA Jiménezlin6370 [facility] [id number] pH (U) 5.5 [pH] Normal 5.0-7.5 [facility] Internal Medicine Work Phone: Comment on above: PATIENT WAS FASTINGP ERFORMED BY: [facility]6370 [facility] [id number] Protein Ql (U) Negative Normal Comprehens johann Internal Medicine Work Phone: Comment on above: PATIENT WAS FASTINGP ERFORMED BY: [facility]6370 [facility] [id number] Specific gravity (U) [Rel density] 1.019 1 Normal 1.005-1.03 0 [facility] Internal Medicine Work Phone: Comment on above: PATIENT WAS FASTINGP ERFORMED BY: JAMA [facility]6370 [facility] [id number] Urobilinogen Test strip (U) [Mass/Vol] 0.2 mg/dL Normal 0.0-1.9 [facility] Internal Medicine Work Phone: Comment on above: PATIENT WAS FASTINGP ERFORMED BY: [facility]6370 [facility] [id number] Blood Glucose , Office ([phone])on 01-08-2012 Glucose Glucometer (BldC) [Moles/Vol] 88 1 Normal [facility] Internal Medicine Work Phone: HgA1C , Office ([phone])on HbA1c (Bld) [Mass fraction] 5.8 % Normal 4.6 - 7.1 [facility] Internal Medicine Work Phone: Hemoglobin Glyclated (HGB A1 C) (80186)Ordered By: Hide And Skin Processing Worker on 09-06-2011 HbA1c (Bld) [Mass fraction] 5.9 % Abnormal 4.8-5.6 [facility] Internal Medicine Work Phone: Comment on above: . Increased risk for diabetes: 5.7 - 6.4 Diabetes: >6.4 Glycemic control for adults with diabetes: <7.0 PATIENT NOT FASTINGP ERFORMED BY: [place] 0811070 [facility] [id number] Information: ADD [id number] AND DRAW FEE 99 0960 CBC WITH MANUAL DIFF (05893) Ordered By: Hide And Skin Processing Worker on 08-28-2011 Basophils (Bld) [#/Vol] 0.0 {x10E3/uL} Normal 0.0-0.2 [facility] Work Phone: Comment on above: PATIENT WAS FASTINGP ERFORMED BY: [address] [id number] Information: [id number] Basophils/100 WBC (Bld) 1 % Normal 0-3 [facility] Work Phone: Comment on above: PATIENT WAS FASTINGP ERFORMED BY: [address] [id number] Information: [id number],[id number] Eosinophils (Bld) [#/Vol] 0.2 {x10E3/uL} Normal 0.0-0.4 [facility] Work Phone: Comment on above: PATIENT WAS FASTINGP ERFORMED BY: [address] [id number] Information: [id number] Eosinophils/100 WBC (Bld) 2 % Normal 0-7 [facility] Work Phone: Comment on above: PATIENT WAS FASTINGP ERFORMED BY: [address] [id number] Information: 612205,[id number] Erythrocyte distribution width (RBC) [Ratio] 12.8 % Normal 12.3-15.4 [facility] Work Phone: Comment on above: PATIENT WAS FASTINGP ERFORMED BY: [place] 0811070 [facility] [id number] Information: [id number],[id number] Hematocrit (Bld) [Volume fraction] 41.4 % Normal 37.5-51.0 [facility] Work Phone: Comment on above: PATIENT WAS FASTINGP ERFORMED BY: [place] 0811070 [facility] [id number] Information: [id number] Hemoglobin (Bld) [Mass/Vol] 14.7 g/dL Normal 12.6-17.7 [facility] Work Phone: Comment on above: PATIENT WAS FASTINGP ERFORMED BY: [address] [id number] Information: [id number] Immature granulocytes (Bld) [#/Vol] 0.0 {x10E3/uL} Normal 0.0-0.1 [facility] Work Phone: Comment on above: PATIENT WAS FASTINGP ERFORMED BY: [address] [id number] Information: 523960,[id number] Immature granulocytes/100 WBC (Bld) 0 % Normal 0-2 [facility] Work Phone: Comment on above: PATIENT WAS FASTINGP ERFORMED BY: [address] [id number] Information: [id number] Lymphocytes (Bld) [#/Vol] 2.2 {x10E3/uL} Normal 0.7-4.5 [facility] Work Phone: Comment on above: PATIENT WAS FASTINGP ERFORMED BY: [address] [id number] Information: 340693,[id number] Lymphocytes/100 WBC (Bld) 26 % Normal 14-46 [facility] Work Phone: Comment on above: PATIENT WAS FASTINGP ERFORMED BY: [address] [id number] Information: 132222,[id number] MCH (RBC) [Entitic mass] 30.8 pg Normal 26.6-33.0 [facility] Work Phone: Comment on above: PATIENT WAS FASTINGP ERFORMED BY: JAMA RadhaDeckerville Community Hospital6370 [facility] [id number] Information: [id number] MCHC (RBC) [Mass/Vol] 35.5 g/dL Normal 31.5-35.7 [facility] Internal Medicine Work Phone: Comment on above: PATIENT WAS FASTINGP ERFORMED BY: JAMA [address] [id number] Information: [id number] MCV (RBC) [Entitic vol] 87 fL Normal 79-97 [facility] Internal Medicine Work Phone: Comment on above: PATIENT WAS FASTINGP ERFORMED BY: JAMA [address] [id number] Information: [id number],[id number] Monocytes (Bld) [#/Vol] 0.7 {x10E3/uL} Normal 0.1-1.0 [facility] Internal Medicine Work Phone: Comment on above: PATIENT WAS FASTINGP ERFORMED BY: JAMA RadhaKelly Ville 2984470 [facility] [id number] Information: 886334,[id number] Monocytes/100 WBC (Bld) 9 % Normal 4-13 [facility] Work Phone: Comment on above: PATIENT WAS FASTINGP ERFORMED BY: JAMA [place] 3836270 [facility] [id number] Information: 874621,[id number] Neutrophils (Bld) [#/Vol] 5.1 {x10E3/uL} Normal 1.8-7.8 [facility] Work Phone: Comment on above: PATIENT WAS FASTINGP ERFORMED BY: JAMA [place] 3836270 [facility] [id number] Information: 239508,[id number] Neutrophils/100 WBC (Bld) 62 % Normal 40-74 [facility] Work Phone: Comment on above: PATIENT WAS FASTINGP ERFORMED BY: CB [place] 3836270 [facility] [id number] Information: [id number],[id number] Platelets (Bld) [#/Vol] 214 {x10E3/uL} Normal 140-415 [facility] Work Phone: Comment on above: PATIENT WAS FASTINGP ERFORMED BY: JAMA GarciaDo[facility] Gagkav2773 [facility] [id number] Information: [id number],[id number] RBC (Bld) [#/Vol] 4.78 {x10E6/uL} Normal 4.14-5.80 [facility] Internal Medicine Work Phone: Comment on above: PATIENT WAS FASTINGP ERFORMED BY: JAMA Richardson Nrhcbj8006 [facility] [id number] Information: [id number] WBC (Bld) [#/Vol] 8.2 {x10E3/uL} Normal 4.0-10.5 [facility] Internal Medicine Work Phone: Comment on above: PATIENT WAS FASTINGP ERFORMED BY: RadhaDo[facility] Obmctv1683 [facility] [id number] Information: [id number],[id number] LIPID PANEL (94994)Ordered B y: Hide And Skin Processing Worker on 08-28-2011 Cholesterol [Mass/Vol] 171 mg/dL Normal 100-199 [facility] Work Phone: Comment on above: PATIENT WAS FASTINGP ERFORMED BY: RadhaDo[facility] Vdbzrk0101 [facility] [id number] Cholesterol in HDL [Mass/Vol] 54 mg/dL Normal [facility] Work Phone: Comment on above: According to ATP-III Guidelines, HDL-C >59 mg/dL is considered anegative risk factor for CHD. PATIENT WAS FASTINGP ERFORMED BY: LabDoctors [facility] Ldymzf1884 [facility] Rivers [facility] [id number] Cholesterol in LDL [Mass/Vol] 97 mg/dL Normal 0-99 [facility] Work Phone: Comment on above: PATIENT WAS FASTINGP ERFORMED BY: CB [facility] Snwrkl1397 Jimenez RoadDublin [place] [id number] Cholesterol in LDL/Cholesterol in HDL [Mass ratio] 1.8 {ratio_units} Normal 0.0-3.6 [facility] Work Phone: Comment on above: PATIENT WAS FASTINGP ERFORMED BY: CB [facility] Rjrpup9071 Jimenez RoadDublin [place] [id number] Cholesterol in VLDL [Mass/Vol] 20 mg/dL Normal 5-40 [facility] Work Phone: Comment on above: PATIENT WAS FASTINGP ERFORMED BY: CB [facility] Wdwtxv7328 Jimenez RoadDublin [place] [id number] Triglyceride [Mass/Vol] 99 mg/dL Normal 0-149 [facility] Work Phone: Comment on above: PATIENT WAS FASTINGP ERFORMED BY: CB [facility] Bcpyjm3680 Jimenez RoadDublin [place] [id number] METABOLIC PANEL, COMPREHENSI VE ([id number])Ordered By: Hide And Skin Processing Worker on 08-28-2011 Albumin [Mass/Vol] 4.9 g/dL Normal 3.5-5.5 [facility] Internal Medicine Work Phone: Comment on above: PATIENT WAS FASTINGP ERFORMED BY: CB [facility] Dgrprs4785 Jimenez RoadDublin [place] [id number] Albumin/Globulin [Mass ratio] 2.1 {ratio} Normal 1.1-2.5 [facility] Work Phone: Comment on above: PATIENT WAS FASTINGP ERFORMED BY: CB [facility] Bmsezm5985 [address]enez RoadDublin [place] [id number] ALP [Catalytic activity/Vol] 55 [iU]/L Normal 25-150 [facility] Work Phone: Comment on above: PATIENT WAS FASTINGP ERFORMED BY: CB [facility] Avhboa5095 [address] RoadDublin [place] [id number] ALT [Catalytic activity/Vol] 28 [iU]/L Normal 0-55 [facility] Work Phone: Comment on above: PATIENT WAS FASTINGP ERFORMED BY: JAMA [facility] Feyybw1222 [address] RoadDublin [place] [id number] AST [Catalytic activity/Vol] 25 [iU]/L Normal 0-40 [facility] Internal Medicine Work Phone: Comment on above: PATIENT WAS FASTINGP ERFORMED BY: JAMA [facility] Nivjke6201 [address] RoadDublin [place] [id number] Bilirubin [Mass/Vol] 0.5 mg/dL Normal 0.0-1.2 [facility]: Comment on above: PATIENT WAS FASTINGP ERFORMED BY: [facility] Utnubb7017 [address] RoadDublin [place] [id number] Calcium [Mass/Vol] 10.0 mg/dL Normal 8.7-10.2 [facility] Internal Medicine Work Phone: Comment on above: PATIENT WAS FASTINGP ERFORMED BY: [facility] Hnzegm0652 [address] RoadDublin [place] [id number] Chloride [Moles/Vol] 105 mmol/L Normal 97-108 [facility] Work Phone: Comment on above: PATIENT WAS FASTINGP ERFORMED BY: [facility] Qxwxup3649 [address] RoadDublin [place] [id number] CO2 [Moles/Vol] 20 mmol/L Normal 20-32 [facility] Internal Medicine Work Phone: Comment on above: PATIENT WAS FASTINGP ERFORMED BY: [facility] Qegouh9498 [address] RoadDublin [place] [id number] Creatinine [Mass/Vol] 1.03 mg/dL Normal 0.76-1.27 [facility] Internal Medicine Work Phone: Comment on above: PATIENT WAS FASTINGP ERFORMED BY: [facility] Tlafku8273 [address] RoadDublin [place] [id number] GFR/1.73 sq M predicted among blacks CKD-EPI (S/P/Bld) [Vol rate/Area] 95 mL/min/1.73 Normal [facility] Internal Medicine Work Phone: Comment on above: PATIENT WAS FASTINGP ERFORMED BY: [facility] Dscubw4956 [address] [facility] [place] [id number] GFR/1.73 sq M predicted among non-blacks CKD-EPI (S/P/Bld) [Vol rate/Area] 83 mL/min/1.73 Normal [facility] Internal Medicine Work Phone: Comment on above: PATIENT WAS FASTINGP ERFORMED BY: [facility] Czradi9762 [address] [facility] [id number] Globulin (S) [Mass/Vol] 2.3 g/dL Normal 1.5-4.5 [facility] Internal Medicine Work Phone: Comment on above: PATIENT WAS FASTINGP ERFORMED BY: [facility] Kjoagt5415 [facility] [id number] Glucose [Mass/Vol] 103 mg/dL Abnormal 65-99 [facility] Internal Medicine Work Phone: Comment on above: PATIENT WAS FASTINGP ERFORMED BY: [facility]6370 [facility] Hospitalin [place] [id number] Potassium [Moles/Vol] 4.2 mmol/L Normal 3.5-5.2 [facility] Internal Medicine Work Phone: Comment on above: PATIENT WAS FASTINGP ERFORMED BY: [facility]6370 [facility] Hospitalin [place] [id number] Protein [Mass/Vol] 7.2 g/dL Normal 6.0-8.5 [facility] Internal Medicine Work Phone: Comment on above: PATIENT WAS FASTINGP ERFORMED BY: [facility] Vctzbf1714 Jim[address] [facility]in [place] [id number] Sodium [Moles/Vol] 139 mmol/L Normal 134-144 [facility] Internal Medicine Work Phone: Comment on above: PATIENT WAS FASTINGP ERFORMED BY: [facility] Olbbzu2495 [address] [facility]in [place] [id number] Urea nitrogen [Mass/Vol] 17 mg/dL Normal 6-24 [facility] Internal Medicine Work Phone: Comment on above: PATIENT WAS FASTINGP ERFORMED BY: [employer] Uycaah4212 [facility] [id number] Urea nitrogen/Creatinine [Mass ratio] 17 mg/mg Normal 9-20 [facility] Work Phone: Comment on above: PATIENT WAS FASTINGP ERFORMED BY: [facility] Oitoez2948 [facility] [id number] MICROALBUMINOrdered By: Syst em Tower Technician on 08-28-2011 Albumin DL <= 20 mg/L (U) [Mass/Vol] 7.5 ug/mL Normal 0.0-17.0 [facility] Work Phone: Comment on above: PATIENT WAS FASTINGP ERFORMED BY: [employer] Xnyore8457 [facility] [id number] Albumin/Creatinine (U) [Mass ratio] 4.9 {mg/g_creat} Normal 0.0-30.0 [facility] Work Phone: Comment on above: PATIENT WAS FASTINGP ERFORMED BY: [employer] Wfxwvw6399 [facility] [id number] Creatinine (U) [Mass/Vol] 151.7 mg/dL Normal 22.0-328.0 [facility] Work Phone: Comment on above: PATIENT WAS FASTINGP ERFORMED BY: [employer] Dyohbb1548 [facility] [id number] PSA (PROSTATE SPECIFIC ANTIG EN) (V76.44)Ordered By: Hide And Skin Processing Worker on 08-28-2011 Prostate specific Ag [Mass/Vol] 2.2 ng/mL Normal 0.0-4.0 [facility] Work Phone: Comment on above: Steve ECLIA methodol ogy. .According to the [place] [employer], Serum PSA shoulddecrease and remain [...] malignant disease. PATIENT WAS FASTINGP ERFORMED BY: JAMA LabAdarsh Uryugw7369 Jimenez RoadDublin [place] [id number] TSH ([id number])Ordered By: Bel Vinoe m Tower Technician on 08-28-2011 TSH Qn 1.360 {uIU/mL} Normal 0.450-4.50 0 [facility] Work Phone: Comment on above: PATIENT WAS FASTINGP ERFORMED BY: JAMA [facility] Gkxhpm5248 Jim[address] RoadDublin [place] [id number] URINALYSIS, W/ MICRO ([id number]) Ordered By: Hide And Skin Processing Worker on 08-28-2011 Appearance (U) Clear Normal Comprehens johann Internal Medicine Work Phone: Comment on above: PATIENT WAS FASTINGP ERFORMED BY: JAMA LabAdarsh Hzjkep4321 [address] RoadDublin [place] [id number] Bilirubin Ql (U) Negative Normal Comprehe nsive Internal Medicine Work Phone: Comment on above: PATIENT WAS FASTINGP ERFORMED BY: JAMA [facility] Ylyodq9485 [address] RoadDublin [place] [id number] Color (U) Yellow Normal [facility] Work Phone: Comment on above: PATIENT WAS FASTINGP ERFORMED BY: JAMA Dylanthania JiménezZqknqj1941 Jimenez RoadDublin [place] [id number] Glucose Ql (U) Negative Normal Comprehens johann Internal Medicine Work Phone: Comment on above: PATIENT WAS FASTINGP ERFORMED BY: JAMA [facility] Jdubeb6139 [address] RoadDublin [place] [id number] Hemoglobin Ql (U) Negative Normal Compreh ensive Internal Medicine Work Phone: Comment on above: PATIENT WAS FASTINGP ERFORMED BY: JAMA [facility] Ibqzbd5806 [address] RoadDublin [place] [id number] Ketones Ql (U) Negative Normal Comprehens johann Internal Medicine Work Phone: Comment on above: PATIENT WAS FASTINGP ERFORMED BY: JAMA [facility] Xuzjsn7372 [address] RoadDublin [place] [id number] Leukocyte esterase Test strip Ql (U) Negative Normal [facility] Work Phone: Comment on above: PATIENT WAS FASTINGP ERFORMED BY: JAMA Nogueira6370 [address] [facility] [id number] Microscopic observation LM Nom (Urine sed) See below: Normal [facility] Work Phone: Comment on above: PATIENT WAS FASTINGP ERFORMED BY: JMAA Sanchez70 [address] [facility] [id number] Microscopic observation LM Nom (Urine sed) MICRON Normal [facility] Work Phone: Comment on above: Microscopic follows if indicated. PATIENT WAS FASTINGP ERFORMED BY: JAMA Nogueira6370 [facility] [id number] Nitrite Ql (U) Negative Normal Comprehens johann Internal Medicine Work Phone: Comment on above: PATIENT WAS FASTINGP ERFORMED BY: JAMA Nogueira6370 [facility] [id number] pH (U) 5.0 [pH] Normal 5.0-7.5 [facility] Work Phone: Comment on above: PATIENT WAS FASTINGP ERFORMED BY: JAMA Nogueira6370 [facility] [id number] Protein Ql (U) Negative Normal Comprehens johann Internal Medicine Work Phone: Comment on above: PATIENT WAS FASTINGP ERFORMED BY: JAMA Nogueira6370 [facility] [id number] Specific gravity (U) [Rel density] 1.018 1 Normal 1.005-1.03 0 [facility] Work Phone: Comment on above: PATIENT WAS FASTINGP ERFORMED BY: JAMA Nogueira6370 [facility] [id number] Urobilinogen Test strip (U) [Mass/Vol] 0.2 mg/dL Normal 0.0-1.9 Comprehensi Internal Medicine Work Phone: Comment on above: PATIENT WAS FASTINGP ERFORMED BY: JAMA Jiménezlin6370 [facility] [id number] Blood Glucose , Office ([phone])Ordered By: Yudith Vaz on 05-04-2011 Glucose Glucometer (BldC) [Moles/Vol] 85 1 Normal [facility] Work Phone: HgA1C , Office ([phone])Ordere d By: Yudith Vaz on 05-04-2011 HbA1c (Bld) [Mass fraction] 5.8 % Normal 4.6 - 7.1 [facility] Work Phone: LIPID PANEL ([id number])Ordered B y: Hide And Skin Processing Worker on 10-03-2010 Cholesterol [Mass/Vol] 164 mg/dL Normal 100-199 [facility] Work Phone: Comment on above: PATIENT WAS FASTINGP ERFORMED BY: JAMA RadhaRoger Xtvcss7238 [facility] [id number] Information: [id number]; appt 10/14/10 Cholesterol in HDL [Mass/Vol] 47 mg/dL Normal [facility] Work Phone: Comment on above: According to ATP-III Guidelines, HDL-C >59 mg/dL is considered anegative risk factor for CHD. PATIENT WAS FASTINGP ERFORMED BY: JAMA Jiménezlin6370 [facility] [id number] Information: [id number]; appt 10/14/10 Cholesterol in LDL [Mass/Vol] 93 mg/dL Normal 0-99 [facility] Work Phone: Comment on above: PATIENT WAS FASTINGP ERFORMED BY: JAMA [facility] Bhxspf7213 [facility] [id number] Information: [id number],[id number]; appt 10/14/10 Cholesterol in LDL/Cholesterol in HDL [Mass ratio] 2.0 {ratio_units} Normal 0.0-3.6 [facility] Work Phone: Comment on above: PATIENT WAS FASTINGP ERFORMED BY: JAMA [facility] Cslass1307 [facility] [id number] Information: 109208,[id number]; appt 10/14/10 Cholesterol in VLDL [Mass/Vol] 24 mg/dL Normal 5-40 [facility] Work Phone: Comment on above: PATIENT WAS FASTINGP ERFORMED BY: JAMA LabRoger Nogueira6370 [facility] [id number] Information: 136615,[id number]; appt 10/14/10 Triglyceride [Mass/Vol] 120 mg/dL Normal 0-149 [facility] Work Phone: Comment on above: PATIENT WAS FASTINGP ERFORMED BY: JAMA LabCoHudson County Meadowview HospitalUzcqrt2345 [facility] [id number] Information: 075581,[id number]; appt 10/14/10 CBC WITH MANUAL DIFF (32752) Ordered By: Hide And Skin Processing Worker on 09-16-2010 Basophils (Bld) [#/Vol] 0.1 {x10E3/uL} Normal 0.0-0.2 [facility] Work Phone: Comment on above: PATIENT NOT FASTINGP ERFORMED BY: JAMA [facility] Wtzerb3478 [facility] [id number] Information: 645430,[id number] Basophils/100 WBC (Bld) 1 % Normal 0-3 [facility] Work Phone: Comment on above: PATIENT NOT FASTINGP ERFORMED BY: JAMA LabCoHudson County Meadowview HospitalDwfkax2461 [facility] [id number] Information: 809396,S16353 Eosinophils (Bld) [#/Vol] 0.4 {x10E3/uL} Normal 0.0-0.4 [facility] Work Phone: Comment on above: PATIENT NOT FASTINGP ERFORMED BY: JAMA [facility] Spwqsi6840 [facility] [id number] Information: 352863,[id number] Eosinophils/100 WBC (Bld) 5 % Normal 0-7 [facility] Work Phone: Comment on above: PATIENT NOT FASTINGP ERFORMED BY: CB [facility] Lhdnkm8653 [facility] [id number] Information: 101632,[id number] Erythrocyte distribution width (RBC) [Ratio] 12.8 % Normal 11.7-15.0 [facility] Work Phone: Comment on above: PATIENT NOT FASTINGP ERFORMED BY: JAMA [address] [id number] Information: [id number],[id number] Hematocrit (Bld) [Volume fraction] 43.0 % Normal 36.0-50.0 [facility] Work Phone: Comment on above: PATIENT NOT FASTINGP ERFORMED BY: JAMA [address] [id number] Information: 098184,[id number] Hemoglobin (Bld) [Mass/Vol] 14.1 g/dL Normal 12.5-17.0 [facility] Work Phone: Comment on above: PATIENT NOT FASTINGP ERFORMED BY: JAMA [place] 3836270 [facility] [id number] Information: 276275,[id number] Immature granulocytes (Bld) [#/Vol] 0.0 {x10E3/uL} Normal 0.0-0.1 [facility] Work Phone: Comment on above: PATIENT NOT FASTINGP ERFORMED BY: JAMA [place] 3836270 [facility] [id number] Information: 826176,B25516 Immature granulocytes/100 WBC (Bld) 0 % Normal 0-2 [facility] Work Phone: Comment on above: Please note refere nce interval change PATIENT NOT FASTINGP ERFORMED BY: JAMA [place] 3836270 [facility] [id number] Information: 716435,[id number] Lymphocytes (Bld) [#/Vol] 2.5 {x10E3/uL} Normal 0.7-4.5 [facility] Work Phone: Comment on above: PATIENT NOT FASTINGP ERFORMED BY: JAMA Teresa Jiménezlin6370 [facility] [id number] Information: 848188,[id number] Lymphocytes/100 WBC (Bld) 28 % Normal 14-46 [facility] Work Phone: Comment on above: PATIENT NOT FASTINGP ERFORMED BY: JAMA Jiménezlin6370 [facility] [id number] Information: 142533,[id number] MCH (RBC) [Entitic mass] 29.5 pg Normal 27.0-34.0 [facility] Work Phone: Comment on above: PATIENT NOT FASTINGP ERFORMED BY: JAMA Dylan Jbwqkp8248 [facility] [id number] Information: [id number] MCHC (RBC) [Mass/Vol] 32.8 g/dL Normal 32.0-36.0 [facility] Internal Medicine Work Phone: Comment on above: PATIENT NOT FASTINGP ERFORMED BY: JAMA DylanMike V[place] 0899370 [facility] [id number] Information: 883934,D42290 MCV (RBC) [Entitic vol] 90 fL Normal 80-98 [facility] Work Phone: Comment on above: PATIENT NOT FASTINGP ERFORMED BY: JAMA DylanMike [place] 0899370 [facility] [id number] Information: 604357,[id number] Monocytes (Bld) [#/Vol] 0.9 {x10E3/uL} Normal 0.1-1.0 [facility] Work Phone: Comment on above: PATIENT NOT FASTINGP ERFORMED BY: JAMA GarciaCo Vzqhcz5663 [facility] [id number] Information: 985246,[id number] Monocytes/100 WBC (Bld) 11 % Normal 4-13 [facility] Work Phone: Comment on above: PATIENT NOT FASTINGP ERFORMED BY: JAMA Richardson Atzniv5991 [facility] [id number] Information: 268780,[id number] Neutrophils (Bld) [#/Vol] 5.0 {x10E3/uL} Normal 1.8-7.8 [facility] Internal Medicine Work Phone: Comment on above: PATIENT NOT FASTINGP ERFORMED BY: JAMA Richardson[address] [id number] Information: 095850,Q27422 Neutrophils/100 WBC (Bld) 55 % Normal 40-74 [facility] Internal Medicine Work Phone: Comment on above: PATIENT NOT FASTINGP ERFORMED BY: JAMA Richardson Gmqyvz4276 [facility] [id number] Information: 352152,[id number] Platelets (Bld) [#/Vol] 236 {x10E3/uL} Normal 140-415 [facility] Internal Medicine Work Phone: Comment on above: PATIENT NOT FASTINGP ERFORMED BY: JAMA RichardsonHudson County Meadowview HospitalLxsdio1079 [facility] [id number] Information: 063835,[id number] RBC (Bld) [#/Vol] 4.78 {x10E6/uL} Normal 4.10-5.60 [facility] Internal Medicine Work Phone: Comment on above: PATIENT NOT FASTINGP ERFORMED BY: JAMA GarciaDeckerville [facility] Hospital6370 [facility] [id number] Information: 928142,[id number] WBC (Bld) [#/Vol] 8.9 {x10E3/uL} Normal 4.0-10.5 [facility] Internal Medicine Work Phone: Comment on above: PATIENT NOT FASTINGP ERFORMED BY: JAMA [facility]Do[facility] Klwwkj8158 [facility] [id number] Information: 204701,[id number] METABOLIC PANEL, COMPREHENSI VE (06357)Ordered By: Hide And Skin Processing Worker on 09-16-2010 Albumin [Mass/Vol] 4.9 g/dL Normal 3.5-5.5 Compr hensive Internal Medicine Work Phone: Comment on above: PATIENT NOT FASTINGP ERFORMED BY: JAMA [facility] Kzislq6448 Jimenez RoadDublin [place] [id number] Albumin/Globulin [Mass ratio] 2.0 {ratio} Normal 1.1-2.5 [facility] Work Phone: Comment on above: PATIENT NOT FASTINGP ERFORMED BY: CB [facility] Orrgpg2828 Jimenez RoadDublin [place] [id number] ALP [Catalytic activity/Vol] 54 [iU]/L Normal 25-150 [facility] Work Phone: Comment on above: PATIENT NOT FASTINGP ERFORMED BY: JAMA [facility] Fsxafn9605 [address] RoadDublin [place] [id number] ALT [Catalytic activity/Vol] 43 [iU]/L Normal 0-55 [facility] Work Phone: Comment on above: PATIENT NOT FASTINGP ERFORMED BY: JAMA LabRoger Ukoxtf0938 [address] Roadblin [place] [id number] AST [Catalytic activity/Vol] 41 [iU]/L Abnormal 0-40 [facility] Work Phone: Comment on above: PATIENT NOT FASTINGP ERFORMED BY: JAMA Jiménezlin6370 [address] RoadDublin [place] [id number] Bilirubin [Mass/Vol] 0.3 mg/dL Normal 0.0-1.2 Comp rehensive Internal Medicine Work Phone: Comment on above: PATIENT NOT FASTINGP ERFORMED BY: CB [facility] Iwzouf8573 [address] RoadDublin [place] [id number] Calcium [Mass/Vol] 10.0 mg/dL Normal 8.7-10.2 [facility] Internal Medicine Work Phone: Comment on above: PATIENT NOT FASTINGP ERFORMED BY: JAMA [facility] Oymkji5162 [address] RoadDublin [place] [id number] Chloride [Moles/Vol] 103 mmol/L Normal 97-108 Comp [facility] Work Phone: Comment on above: PATIENT NOT FASTINGP ERFORMED BY: CB [facility] Pdqdmg4830 [address] RoadDublin [place] [id number] CO2 [Moles/Vol] 23 mmol/L Normal 20-32 Comprehen sive Internal Medicine Work Phone: Comment on above: PATIENT NOT FASTINGP ERFORMED BY: CB [facility] Bxwamx7051 [address] [facility]bl[facility] [place] [id number] Creatinine [Mass/Vol] 1.04 mg/dL Normal 0.76-1.27 [facility] prehensive Internal Medicine Work Phone: Comment on above: PATIENT NOT FASTINGP ERFORMED BY: CB [facility] Eoaprh2556 Jimenez RoadFrye [facility] [id number] GFR/1.73 sq M predicted among blacks MDRD (S/P/Bld) [Vol rate/Area] 95 mL/min/{1.73_m2} Normal Comprehensiv e Internal Medicine Work Phone: Comment on above: Note: A persistent e GFR <60 mL/min/1.73 m2 (3 months or more) mayindicate chronic kidney disease. An eGFR >59 mL/min/1.73 m2 with anelevated urine protein also may indicate chronic kidney disease.Calculated using CKD-EPI formula. PATIENT NOT FASTINGP ERFORMED BY: CB [facility] Stbbcy0585 [address] [facility] [id number] GFR/1.73 sq M predicted among non-blacks CKD-EPI (S/P/Bld) [Vol rate/Area] 82 mL/min/1.73 Normal [facility] Work Phone: Comment on above: PATIENT NOT FASTINGP ERFORMED BY: CB [facility] Tbqbip3334 [address] [facility] [place] [id number] Globulin (S) [Mass/Vol] 2.5 g/dL Normal 1.5-4.5 [facility] Work Phone: Comment on above: PATIENT NOT FASTINGP ERFORMED BY: CB [facility] Htjraz0770 [address] [facility]bl[facility] [place] [id number] Glucose [Mass/Vol] 92 mg/dL Normal 65-99 Compre [facility] Internal Medicine Work Phone: Comment on above: PATIENT NOT FASTINGP ERFORMED BY: JAMA [facility] Lnpaxy0161 [address] RoadDuin [place] [id number] Potassium [Moles/Vol] 4.2 mmol/L Normal 3.5-5.2 [facility] Internal Medicine Work Phone: Comment on above: PATIENT NOT FASTINGP ERFORMED BY: CB [facility] Afnncm3429 [address] [facility] [id number] Protein [Mass/Vol] 7.4 g/dL Normal 6.0-8.5 [facility] Internal Medicine Work Phone: Comment on above: PATIENT NOT FASTINGP ERFORMED BY: CB [facility] Fkmkko8335 [address] [facility] [id number] Sodium [Moles/Vol] 141 mmol/L Normal 135-145 [facility] Internal Medicine Work Phone: Comment on above: PATIENT NOT FASTINGP ERFORMED BY: CB [facility] Brpydm1189 [address] [facility] [id number] Urea nitrogen [Mass/Vol] 18 mg/dL Normal 6-24 [facility] Internal Medicine Work Phone: Comment on above: PATIENT NOT FASTINGP ERFORMED BY: JAMA LabCothania Spqkrf5647 [facility] [id number] Urea nitrogen/Creatinine [Mass ratio] 17 mg/mg Normal 9-20 [facility] Internal Medicine Work Phone: Comment on above: PATIENT NOT FASTINGP ERFORMED BY: CB [facility] Bpjabt4054 [address] [facility] [id number] TSH ([id number])Ordered By: Hermelindo novoa Tower Technician on 09-16-2010 TSH Qn 1.660 {uIU/mL} Normal 0.450-4.50 0 [facility] Internal Medicine Work Phone: Comment on above: PATIENT NOT FASTINGP ERFORMED BY: JAMA [facility] Jtvsgg1979 [facility] [id number] Blood Glucose , Office ([phone])Ordered By: Yudith Vaz on 05-30-2010 Glucose Glucometer (BldC) [Moles/Vol] 102 1 Normal [facility] Work Phone: HgA1C , Office (17147)Ordere d By: Yudith Vaz on 05-30-2010 HbA1c (Bld) [Mass fraction] 6.0 % Normal 4.6 - 7.1 [facility] Work Phone: MICROALBUMINOrdered By: Syst em Tower Technician on 05-24-2010 Albumin DL <= 20 mg/L (U) [Mass/Vol] 7.3 ug/mL Normal 0.0-17.0 [facility] Work Phone: Comment on above: PATIENT NOT FASTINGP ERFORMED BY: JAMA [facility] Srrupv2757 [address]enez RoadDublin [place] [id number] Albumin/Creatinine (U) [Mass ratio] 5.0 {mg/g_creat} Normal 0.0-30.0 [facility] Work Phone: Comment on above: PATIENT NOT FASTINGP ERFORMED BY: CB [facility] Ebwnfu4374 [address]enez RoadDublin [place] [id number] Creatinine (U) [Mass/Vol] 145.3 mg/dL Normal 22.0-328.0 [facility] Work Phone: Comment on above: PATIENT NOT FASTINGP ERFORMED BY: CB [facility] Zyyzau8664 [address]enez RoadDublin [place] [id number] URINALYSIS, W/ MICRO ([id number]) Ordered By: Hide And Skin Processing Worker on 05-24-2010 Appearance (U) Clear Normal Comprehens johann Internal Medicine Work Phone: Comment on above: PATIENT NOT FASTINGP ERFORMED BY: CB [facility] Hrprbi6250 Jimenez RoadDublin [place] [id number] Information: [id number] Bilirubin Ql (U) Negative Normal Comprehe nsive Internal Medicine Work Phone: Comment on above: PATIENT NOT FASTINGP ERFORMED BY: JAMA [facility] Buyihn4238 Jimenez RoadDublin [place] [id number] Information: [id number] Color (U) Yellow Normal [facility] Work Phone: Comment on above: PATIENT NOT FASTINGP ERFORMED BY: JAMA [facility] Chalxe7639 Jimenez RoadDublin [place] [id number] Information: U86643 Glucose Ql (U) Negative Normal Comprehens johann Internal Medicine Work Phone: Comment on above: PATIENT NOT FASTINGP ERFORMED BY: JAMA [facility] Spwwbp6705 Jimenez RoadDublin [place] [id number] Information: U04315 Hemoglobin Ql (U) Negative Normal Compreh ensive Internal Medicine Work Phone: Comment on above: PATIENT NOT FASTINGP ERFORMED BY: JAMA [facility] Zfyqal8092 [address]enez RoadDublin [place] [id number] Information: [id number] Ketones Ql (U) Negative Normal Comprehens johann Internal Medicine Work Phone: Comment on above: PATIENT NOT FASTINGP ERFORMED BY: JAMA [facility] Yydzpg3601 Jimenez RoadCone Health Med[facility] High Pointin [place] [id number] Information: B51406 Leukocyte esterase Test strip Ql (U) Negative Normal [facility] Work Phone: Comment on above: PATIENT NOT FASTINGP ERFORMED BY: JAMA [facility] Wsrshr7819 Jim[address] RoadCone Health Medcenter High Pointin [place] [id number] Information: [id number] Microscopic observation LM Nom (Urine sed) See below: Normal [facility] Work Phone: Comment on above: PATIENT NOT FASTINGP ERFORMED BY: JAMA [facility] Zrlbxp3474 Jimenez RoadDuin [place] [id number] Information: [id number] Microscopic observation LM Nom (Urine sed) MICRON Normal [facility] Work Phone: Comment on above: Microscopic follows if indicated. PATIENT NOT FASTINGP ERFORMED BY: JAMA [facility] Izuyuo0491 [address] RoadDublin [place] [id number] Information: Z80020 Nitrite Ql (U) Negative Normal Comprehens johann Internal Medicine Work Phone: Comment on above: PATIENT NOT FASTINGP ERFORMED BY: JAMA [facility] Vgfbfm8252 [address] RoadDublin [place] [id number] Information: J51044 pH (U) 5.0 [pH] Normal 5.0-7.5 [facility] Work Phone: Comment on above: PATIENT NOT FASTINGP ERFORMED BY: JAMA Richardson Myrmmc8122 [facility] [id number] Information: Y27300 Protein Ql (U) Negative Normal Comprehens johann Internal Medicine Work Phone: Comment on above: PATIENT NOT FASTINGP ERFORMED BY: Radha[address] [id number] Information: Y41654 Specific gravity (U) [Rel density] 1.019 1 Normal 1.005-1.03 0 [facility] Work Phone: Comment on above: PATIENT NOT FASTINGP ERFORMED BY: RadhaKelly V[place] 2984470 [facility] [id number] Information: [id number] Urobilinogen Test strip (U) [Mass/Vol] 0.2 mg/dL Normal 0.0-1.9 Comprehensi Internal Medicine Work Phone: Comment on above: PATIENT NOT FASTINGP ERFORMED BY: JAMA RichardsonHudson County Meadowview HospitalBbcxas3622 [facility] [id number] Information: [id number] CBC WITH MANUAL DIFF (86601) Ordered By: Hide And Skin Processing Worker on 05-23-2010 Basophils (Bld) [#/Vol] 0.0 {x10E3/uL} Normal 0.0-0.2 [facility] Work Phone: Comment on above: PATIENT WAS FASTINGP ERFORMED BY: RadhaKelly V[place] 2984470 [facility] [id number] Information: 578882,N96364 Basophils/100 WBC (Bld) 0 % Normal 0-3 [facility] Work Phone: Comment on above: PATIENT WAS FASTINGP ERFORMED BY: Meghan [place] [id number] [facility] [id number] Information: 382440,N61825 Eosinophils (Bld) [#/Vol] 0.2 {x10E3/uL} Normal 0.0-0.4 [facility] Work Phone: Comment on above: PATIENT WAS FASTINGP ERFORMED BY: [facility]6370 [facility] [id number] Information: [id number] Eosinophils/100 WBC (Bld) 2 % Normal 0-7 [facility] Work Phone: Comment on above: PATIENT WAS FASTINGP ERFORMED BY: [place] [id number] [facility] [id number] Information: [id number],Q47241 Erythrocyte distribution width (RBC) [Ratio] 12.9 % Normal 11.7-15.0 [facility] Work Phone: Comment on above: PATIENT WAS FASTINGP ERFORMED BY: [address] [id number] Information: 873628,K20441 Hematocrit (Bld) [Volume fraction] 40.3 % Normal 36.0-50.0 [facility] Work Phone: Comment on above: PATIENT WAS FASTINGP ERFORMED BY: [place] [id number] [facility] [id number] Information: 788689,C18204 Hemoglobin (Bld) [Mass/Vol] 14.5 g/dL Normal 12.5-17.0 [facility] Work Phone: Comment on above: PATIENT WAS FASTINGP ERFORMED BY: [facility]6370 [facility] [id number] Information: 850173,T84839 Immature granulocytes (Bld) [#/Vol] 0.0 {x10E3/uL} Normal 0.0-0.1 [facility] Work Phone: Comment on above: PATIENT WAS FASTINGP ERFORMED BY: [facility]De[facility]6370 [facility] [id number] Information: 581727,S14266 Immature granulocytes/100 WBC (Bld) 0 % Normal 0-1 [facility] Work Phone: Comment on above: PATIENT WAS FASTINGP ERFORMED BY: [address] [id number] Information: 265544,W83128 Lymphocytes (Bld) [#/Vol] 3.0 {x10E3/uL} Normal 0.7-4.5 [facility] Work Phone: Comment on above: PATIENT WAS FASTINGP ERFORMED BY: [address] [id number] Information: 389624,G94241 Lymphocytes/100 WBC (Bld) 34 % Normal 14-46 [facility] Work Phone: Comment on above: PATIENT WAS FASTINGP ERFORMED BY: [address] [id number] Information: 038809,Y55817 MCH (RBC) [Entitic mass] 31.6 pg Normal 27.0-34.0 [facility] Internal Medicine Work Phone: Comment on above: PATIENT WAS FASTINGP ERFORMED BY: [address] [id number] Information: 085143,M34144 MCHC (RBC) [Mass/Vol] 36.0 g/dL Normal 32.0-36.0 [facility] Internal Medicine Work Phone: Comment on above: PATIENT WAS FASTINGP ERFORMED BY: [address] [id number] Information: [id number],M22166 MCV (RBC) [Entitic vol] 88 fL Normal 80-98 [facility] Work Phone: Comment on above: PATIENT WAS FASTINGP ERFORMED BY: [address] [id number] Information: 197376,T49063 Monocytes (Bld) [#/Vol] 1.0 {x10E3/uL} Normal 0.1-1.0 [facility] Work Phone: Comment on above: PATIENT WAS FASTINGP ERFORMED BY: LabCoHudson County Meadowview HospitalYcwykr6262 [facility] [id number] Information: 446473,J08641 Monocytes/100 WBC (Bld) 11 % Normal 4-13 [facility] Work Phone: Comment on above: PATIENT WAS FASTINGP ERFORMED BY: [facility]De[facility]6370 [facility] [id number] Information: 619769,W93400 Neutrophils (Bld) [#/Vol] 4.7 {x10E3/uL} Normal 1.8-7.8 [facility] Work Phone: Comment on above: PATIENT WAS FASTINGP ERFORMED BY: [facility]De[facility]6370 [facility] [id number] Information: 982873,L29847 Neutrophils/100 WBC (Bld) 53 % Normal 40-74 [facility] Work Phone: Comment on above: PATIENT WAS FASTINGP ERFORMED BY: LabCoHudson County Meadowview HospitalDfiigr6513 [facility] [id number] Information: 485657,R67539 Platelets (Bld) [#/Vol] 236 {x10E3/uL} Normal 140-415 [facility] Work Phone: Comment on above: PATIENT WAS FASTINGP ERFORMED BY: [facility] Urekse1984 [facility] [id number] Information: 928474,W67661 RBC (Bld) [#/Vol] 4.59 {x10E6/uL} Normal 4.10-5.60 [facility] Internal Medicine Work Phone: Comment on above: PATIENT WAS FASTINGP ERFORMED BY: [facility]De[facility]6370 [facility] [id number] Information: 031588,Q72869 WBC (Bld) [#/Vol] 9.0 {x10E3/uL} Normal 4.0-10.5 [facility] prehensive Internal Medicine Work Phone: Comment on above: PATIENT WAS FASTINGP ERFORMED BY: JAMA LabCothania Hwbzxb7[address] [facility] HospitalDublin [place] [id number] Information: 821454,K75381 HEPATIC FUNCTION PANEL (8007 6)Ordered By: Hide And Skin Processing Worker on 05-23-2010 Bilirubin.direct [Mass/Vol] 0.18 mg/dL Normal 0.00-0.40 [facility] Work Phone: Comment on above: PATIENT WAS FASTINGP ERFORMED BY: JAMA [facility] Qxqyup0051 Jim[address] [facility] Centerbl[facility] [place] [id number] LIPID PANEL (00044)Ordered B y: Hide And Skin Processing Worker on 05-23-2010 Cholesterol [Mass/Vol] 161 mg/dL Normal 100-199 [facility] Work Phone: Comment on above: PATIENT WAS FASTINGP ERFORMED BY: [facility] Srglut8518 [address] [facility]in [place] [id number] Cholesterol in HDL [Mass/Vol] 44 mg/dL Normal [facility] Work Phone: Comment on above: According to ATP-III Guidelines, HDL-C >59 mg/dL is considered anegative risk factor for CHD. PATIENT WAS FASTINGP ERFORMED BY: [facility] Talcpr3665 [address] [facility]in [place] [id number] Cholesterol in LDL [Mass/Vol] 87 mg/dL Normal 0-99 [facility] Work Phone: Comment on above: PATIENT WAS FASTINGP ERFORMED BY: CB [facility] Coolpf7[address] [facility] HospitalDuin [place] [id number] Cholesterol in LDL/Cholesterol in HDL [Mass ratio] 2.0 {ratio_units} Normal 0.0-3.6 [facility] Work Phone: Comment on above: PATIENT WAS FASTINGP ERFORMED BY: CB [facility] Epsopr9199 [address]enez RoadDublin [place] [id number] Cholesterol in VLDL [Mass/Vol] 30 mg/dL Normal 5-40 [facility] Work Phone: Comment on above: PATIENT WAS FASTINGP ERFORMED BY: JAMA LabCothania Aklapo8201 [address] RoadDublin [place] [id number] Triglyceride [Mass/Vol] 151 mg/dL Abnormal 0-149 [facility] Work Phone: Comment on above: PATIENT WAS FASTINGP ERFORMED BY: JAMA [facility] Thrhib6849 [address] RoadDublin [place] [id number] METABOLIC PANEL, COMPREHENSI VE (90452)Ordered By: Hide And Skin Processing Worker on 05-23-2010 Albumin [Mass/Vol] 4.8 g/dL Normal 3.5-5.5 [facility] Internal Medicine Work Phone: Comment on above: PATIENT WAS FASTINGP ERFORMED BY: JAMA LabCothania Munfnz4066 Jimenez RoadDublin [place] [id number] Albumin/Globulin [Mass ratio] 1.8 {ratio} Normal 1.1-2.5 [facility] Work Phone: Comment on above: PATIENT WAS FASTINGP ERFORMED BY: JAMA [facility] Kcdnkl0941 Jimenez RoadDublin [place] [id number] ALP [Catalytic activity/Vol] 57 [iU]/L Normal 25-150 [facility] Work Phone: Comment on above: PATIENT WAS FASTINGP ERFORMED BY: JAMA [facility] Tiaypf1624 Jimenez RoadDublin [place] [id number] ALT [Catalytic activity/Vol] 38 [iU]/L Normal 0-55 [facility] Work Phone: Comment on above: PATIENT WAS FASTINGP ERFORMED BY: JAMA [facility] Rvwvgb8614 Jim[address] RoadDublin [place] [id number] AST [Catalytic activity/Vol] 35 [iU]/L Normal 0-40 [facility] Work Phone: Comment on above: PATIENT WAS FASTINGP ERFORMED BY: JAMA [facility] Fnjiyp0290 Jim[address] RoadDublin [place] [id number] Bilirubin [Mass/Vol] 0.7 mg/dL Normal 0.0-1.2 [facility] rehensive Internal Medicine Work Phone: Comment on above: PATIENT WAS FASTINGP ERFORMED BY: CB [facility] Twjpxg7358 Jimenez RoadDublin [place] [id number] Calcium [Mass/Vol] 9.9 mg/dL Normal 8.7-10.2 [facility] Internal Medicine Work Phone: Comment on above: PATIENT WAS FASTINGP ERFORMED BY: CB [facility] Nlcwwj3288 Jimenez RoadDublin [place] [id number] Chloride [Moles/Vol] 101 mmol/L Normal 97-108 [facility] Work Phone: Comment on above: PATIENT WAS FASTINGP ERFORMED BY: CB [facility] Ztttnr0885 [address] RoadDublin [place] [id number] CO2 [Moles/Vol] 22 mmol/L Normal 20-32 Comprehen [facility] Internal Medicine Work Phone: Comment on above: PATIENT WAS FASTINGP ERFORMED BY: CB [facility] Eieuzw3487 Jimenez RoadCone Health Med[facility] Pointin [place] [id number] Creatinine [Mass/Vol] 1.08 mg/dL Normal 0.76-1.27 [facility] Work Phone: Comment on above: PATIENT WAS FASTINGP ERFORMED BY: CB [facility] Gprhzy7348 Jimenez RoadDuin [place] [id number] GFR/1.73 sq M predicted among blacks MDRD (S/P/Bld) [Vol rate/Area] 91 mL/min/{1.73_m2} Normal Comprehensiv e Internal Medicine Work Phone: Comment on above: Note: A persistent e GFR <60 mL/min/1.73 m2 (3 months or more) mayindicate chronic kidney disease. An eGFR >59 mL/min/1.73 m2 with anelevated urine protein also may indicate chronic kidney disease.Calculated using CKD-EPI formula. PATIENT WAS FASTINGP ERFORMED BY: CB [facility] Wupapr5004 Jimenez RoadDublin [place] [id number] GFR/1.73 sq M predicted among non-blacks CKD-EPI (S/P/Bld) [Vol rate/Area] 78 mL/min/1.73 Normal [facility] Internal Medicine Work Phone: Comment on above: PATIENT WAS FASTINGP ERFORMED BY: CB [facility] Ivemuy0516 [address] RoadDublin [place] [id number] Globulin (S) [Mass/Vol] 2.6 g/dL Normal 1.5-4.5 [facility] Internal Medicine Work Phone: Comment on above: PATIENT WAS FASTINGP ERFORMED BY: CB [facility] Qtyvgh1274 [address] RoadDublin [place] [id number] Glucose [Mass/Vol] 89 mg/dL Normal 65-99 [facility] Internal Medicine Work Phone: Comment on above: PATIENT WAS FASTINGP ERFORMED BY: [facility] Azccmv2751 [address]enez RoadDublin [place] [id number] Potassium [Moles/Vol] 4.0 mmol/L Normal 3.5-5.2 [facility] Internal Medicine Work Phone: Comment on above: PATIENT WAS FASTINGP ERFORMED BY: [facility] Duaxdr9381 Jimenez RoadDublin [place] [id number] Protein [Mass/Vol] 7.4 g/dL Normal 6.0-8.5 [facility] Internal Medicine Work Phone: Comment on above: PATIENT WAS FASTINGP ERFORMED BY: [facility] Bpubah8816 Jimenez RoadDublin [place] [id number] Sodium [Moles/Vol] 137 mmol/L Normal 135-145 [facility] Internal Medicine Work Phone: Comment on above: PATIENT WAS FASTINGP ERFORMED BY: [facility] Kztiug4090 Ijmenez RoadDublin [place] [id number] Urea nitrogen [Mass/Vol] 12 mg/dL Normal 6-24 [facility] Internal Medicine Work Phone: Comment on above: PATIENT WAS FASTINGP ERFORMED BY: CB [facility] Xzcrjw6875 Jimenez RoadDublin [place] [id number] Urea nitrogen/Creatinine [Mass ratio] 11 mg/mg Normal 9-20 [facility] Work Phone: Comment on above: PATIENT WAS FASTINGP ERFORMED BY: JAMA [facility] Zjkyqn7476 [facility] [id number] TSH (17223)Ordered By: Hermelindo novoa Tower Technician on 05-23-2010 TSH Qn 1.350 {uIU/mL} Normal 0.450-4.50 0 [facility] Work Phone: Comment on above: PATIENT WAS FASTINGP ERFORMED BY: JAMA [facility] Rjvqnf7356 [facility] [id number] Blood Glucose , Office (8296 2)Ordered By: Yudith Vaz on 01-31-2010 Glucose Glucometer (BldC) [Moles/Vol] 98 1 Normal [facility] Work Phone: HgA1C , Office (04982)Ordere d By: Yudith Vaz on 01-31-2010 HbA1c (Bld) [Mass fraction] 5.8 % Normal 4.6 - 7.1 [facility] Work Phone: Blood Glucose , Office (8296 2)Ordered By: Yudith Vaz on 10-13-2009 Glucose Glucometer (BldC) [Moles/Vol] 98 1 Normal [facility] Work Phone: HgA1C , Office (74962)Ordere d By: Yudith Vaz on 10-13-2009 HbA1c (Bld) [Mass fraction] 5.7 % Normal 4.6 - 7.1 [facility] Work Phone: LIPOPROTEIN, BLD, BY NMR (49 803)Ordered By: Hide And Skin Processing Worker on 09-30-2009 Cholesterol [Mass/Vol] 231 mg/dL Abnormal [facility] Work Phone: Comment on above: PATIENT NOT FASTINGP ERFORMED BY: Edward Cameron [place] [id number] Information: [id number],Z41687 Cholesterol in HDL [Mass/Vol] 0.9 umol/L Abnormal [facility] Work Phone: Comment on above: PATIENT NOT FASTINGP ERFORMED BY: Edward HdzEvolveMol [address] [id number] Information: 136615,Q84275 Cholesterol in HDL [Mass/Vol] 49 mg/dL Normal [facility] Work Phone: Comment on above: PATIENT NOT FASTINGP ERFORMED BY: S7 [address] [id number] Information: 581240,G08308 Cholesterol in LDL [Mass/Vol] 161 mg/dL Abnormal [facility] Work Phone: Comment on above: LDL-C is inaccurate if patient is nonfasting..Optimal < 100Above optimal 100 - 129Borderline 130 - 159High 160 - 189Very high > 189. PATIENT NOT FASTINGP ERFORMED BY: S[address] [id number] Information: 769366,T55538 Lipoprotein.alpha [Moles/Vol] 34.0 umol/L Normal [facility] Work Phone: Comment on above: PATIENT NOT FASTINGP ERFORMED BY: S[address] [id number] Information: 589886,A71596 Lipoprotein.beta.subp article [Entitic length] 20.3 nm Abnormal [...] 20.5 19.0 PATIENT NOT FASTINGP ERFORMED BY: S7 [employer] Ekk0828 [facility] [id number] Information: 048667,O28566 Lipoprotein.beta.subp article [Moles/Vol] 2049 nmol/L Abnormal Comprehensiv e Internal Medicine Work Phone: Comment on above: Low < 1000Moderate 1 000 - 1299Borderline-High 1300 - 1599High 1600 - 2000Very High > 2000 PATIENT NOT FASTINGP ERFORMED BY: S7 [employer] Cuz4928 [facility] [id number] Information: 469904,M00790 Lipoprotein.beta.subp article.small [Moles/Vol] 1213 nmol/L Abnormal [facility] Work Phone: Comment on above: PATIENT NOT FASTINGP ERFORMED BY: S7 [employer] Avj2675 [facility] [id number] Information: 883648,J87777 Triglyceride [Mass/Vol] 106 mg/dL Normal [facility] Work Phone: Comment on above: PATIENT NOT FASTINGP ERFORMED BY: S7 [employer] Fwb2296 [facility] [id number] Information: 397071,O76326 LIPOPROTEIN, BLD, BY NMR (74794) 5.5 nmol/L Abnormal [facility] Work Phone: Comment on above: PATIENT NOT FASTINGP ERFORMED BY: S7 [employer] Gru4035 [facility] HospitalRalP[facility] State Health [id number] Information: 187780,M52156 LIPOPROTEIN, BLD, BY NMR (63575) 1213 nmol/L Abnormal [facility] Work Phone: Comment on above: PATIENT NOT FASTINGP ERFORMED BY: S7 [employer] Ycq7150 [facility] [id number] Information: 967568,O85337 LIPOPROTEIN, BLD, BY NMR (51995) < 8.3 Abnormal [facility] Work Phone: Comment on above: Small LDL-P, LDL Par ticle Size, Large HDL-P, Large VLDL-PVLDL Size, HDL Size, HDL Particle, and LP-IR Scorehave been validated by [employer] but not cleared by US FDA;the clinical utility of these test results has not been fully established. PATIENT NOT FASTINGP ERFORMED BY: S7 [employer] Fci8235 [facility] [id number] Information: 896390,T81685 LIPOPROTEIN, BLD, BY NMR (16834) 20.3 nm Abnormal [facility] Work Phone: Comment on above: PATIENT NOT FASTINGP ERFORMED BY: S7 LipoSciEvolveMol Odz0255 [facility] [id number] Information: 469073,V57287 LIPOPROTEIN, BLD, BY NMR (54584) 83 1 Abnormal [facility] Work [...] >63 PATIENT NOT FASTINGP ERFORMED BY: S7 LipoSciEvolveMol Oop4552 [facility] [id number] Information: 706718,F80531 LIPOPROTEIN, BLD, BY NMR (53424) 56.5 nm Abnormal [facility] Work Phone: Comment on above: PATIENT NOT FASTINGP ERFORMED BY: S7 LipoSciEvolveMol [address] [place] [address] [id number] Information: 672311,S28252 Blood Glucose , Office (0596 2)Ordered By: Yudith Vaz on 06-09-2009 Glucose Glucometer (BldC) [Moles/Vol] 94 1 Normal [facility] Work Phone: HgA1C , Office (44873)Ordere d By: Yudith Vaz on 06-09-2009 HbA1c (Bld) [Mass fraction] 5.6 % Normal 4.6 - 7.1 [facility] Work Phone: LIPOPROTEIN, BLD, BY NMR (46 632)Ordered By: Hide And Skin Processing Worker on 05-24-2009 Cholesterol [Mass/Vol] 210 mg/dL Abnormal [facility] Work Phone: Comment on above: PATIENT WAS FASTINGP ERFORMED BY: S7 LipoSciEvolveMol Esl6279 [facility] [id number] Information: 233084,O44680 Cholesterol in HDL [Mass/Vol] mg/dL Abnormal [facility] Work Phone: Comment on above: PATIENT WAS FASTINGP ERFORMED BY: S7 [employer] Iod9170 [facility] [id number] Information: 416913,Q96366 Cholesterol in HDL [Mass/Vol] 45 mg/dL Normal [facility] Work Phone: Comment on above: PATIENT WAS FASTINGP ERFORMED BY: S7 LipoSciunity[facility]endorf Ykm3698 [facility] [id number] Information: 822065,T51563 Cholesterol in LDL [Mass/Vol] 134 mg/dL Abnormal [facility] Work Phone: Comment on above: .Optimal < 100Above optimal 100 - 129Borderline 130 - 159High 160 - 189Very high > 189. PATIENT WAS FASTINGP ERFORMED BY: S7 LipoSciunitypoint [facility] bettendorf Oot9085 [facility] [id number] Information: 533633,K94050 Lipoprotein.alpha [Moles/Vol] 30.9 umol/L Normal [facility] Work Phone: Comment on above: PATIENT WAS FASTINGP ERFORMED BY: S7 LipoSciunitypoint [facility]tendor[facility] Bzc2435 [facility] [id number] Information: 685769,I32926 Lipoprotein.beta.subp article [Entitic length] 20.3 nm Abnormal [facility] Work Phone: Comment on above: PATIENT WAS FASTINGP ERFORMED BY: S7 [employer] Nih1106 [facility] [id number] Information: 213454,M34868 Lipoprotein.beta.subp article [Moles/Vol] 1873 nmol/L Abnormal Comprehensiv e Internal Medicine Work Phone: Comment on above: Low < 1000Moderate 1 000 - 1299Borderline-High 1300 - 1599High 1600 - 2000Very High > 2000. PATIENT WAS FASTINGP ERFORMED BY: S7 [employer] Epp9148 [facility] [id number] Information: 773096,J62780 Lipoprotein.beta.subp article.small [Moles/Vol] 985 nmol/L Abnormal [facility] Work Phone: Comment on above: PATIENT WAS FASTINGP ERFORMED BY: S7 [employer] Ccf2325 [facility] [id number] Information: 068949,A25270 Triglyceride [Mass/Vol] 153 mg/dL Abnormal [facility] Work Phone: Comment on above: PATIENT WAS FASTINGP ERFORMED BY: S7 [employer] Lpw8598 [facility] [id number] Information: 765350,K42262 LIPOPROTEIN, BLD, BY NMR (50882) < 8.3 Abnormal [facility] Work Phone: Comment on above: Small LDL-P, LDL Par ticle Size, Large HDL-P, Large VLDL-PVLDL Size, HDL Size, HDL Particle, and LP-IR Scorehave been validated by [employer] but not cleared by US FDA;the clinical utility of these test results has not been fully established. PATIENT WAS FASTINGP ERFORMED BY: S7 [employer] Rke8760 [facility] [id number] Information: [id number] LIPOPROTEIN, BLD, BY NMR (02579) 76 1 Abnormal [facility] Work [...] >63 PATIENT WAS FASTINGP ERFORMED BY: S7 [employer] [address] [place] [address] [id number] Information: [id number] LIPOPROTEIN, BLD, BY NMR (69043) 51.1 nm Abnormal [facility] Work Phone: Comment on above: PATIENT WAS FASTINGP ERFORMED BY: S7 [employer] Vpe3450 [facility] [id number] Information: [id number] LIPOPROTEIN, BLD, BY NMR (28305) 985 nmol/L Abnormal [facility] Work Phone: Comment on above: PATIENT WAS FASTINGP ERFORMED BY: S7 [employer] Ydz6433 [facility] [id number] Information: [id number] LIPOPROTEIN, BLD, BY NMR (73874) 20.3 nm Abnormal [facility] Work Phone: Comment on above: PATIENT WAS FASTINGP ERFORMED BY: S7 [employer] Yqa8007 [facility] [id number] Information: [id number] LIPOPROTEIN, BLD, BY NMR (88664) 5.7 nmol/L Abnormal [facility] Work Phone: Comment on above: PATIENT WAS FASTINGP ERFORMED BY: S7 [employer] Gfl9395 [facility] [id number] Information: [id number] Blood Glucose , Office (2596 2)Ordered By: Yudith Vaz on 01-25-2009 Glucose Glucometer (BldC) [Moles/Vol] 106 1 Normal [facility] Work Phone: Comment on above: done km HgA1C , Office (67867)Ordere d By: Yudith Vaz on 01-25-2009 HbA1c (Bld) [Mass fraction] 5.5 % Normal 4.6 - 7.1 [facility] Work Phone: Comment on above: done km CBC WITH MANUAL DIFF (28388) Ordered By: Subha Camacho on 01-20-2009 Basophils (Bld) [#/Vol] 0.1 {x10E3/uL} Normal 0.0-0.2 [facility] Work Phone: Comment on above: PATIENT WAS FASTINGP ERFORMED BY: CB [facility] Spzlcy7310 Jimenez RoadDuin [place] [id number] Basophils/100 WBC (Bld) 1 % Normal 0-3 [facility] Work Phone: Comment on above: PATIENT WAS FASTINGP ERFORMED BY: CB [facility] Uinika0966 [address] RoadDublin [place] [id number] Eosinophils (Bld) [#/Vol] 0.2 {x10E3/uL} Normal 0.0-0.4 [facility] Work Phone: Comment on above: PATIENT WAS FASTINGP ERFORMED BY: JAMA LabAdarsh Krhqae9745 [address] [facility] [id number] Eosinophils/100 WBC (Bld) 2 % Normal 0-7 [facility] Work Phone: Comment on above: PATIENT WAS FASTINGP ERFORMED BY: [facility]6370 [address] [facility] [id number] Erythrocyte distribution width (RBC) [Ratio] 12.5 % Normal 11.7-15.0 [facility] Work Phone: Comment on above: PATIENT WAS FASTINGP ERFORMED BY: [facility] Eimmou2345 [address] [facility] [id number] Hematocrit (Bld) [Volume fraction] 42.5 % Normal 36.0-50.0 [facility] Work Phone: Comment on above: PATIENT WAS FASTINGP ERFORMED BY: [facility]6370 [address] [facility] [id number] Hemoglobin (Bld) [Mass/Vol] 14.9 g/dL Normal 12.5-17.0 [facility] Work Phone: Comment on above: PATIENT WAS FASTINGP ERFORMED BY: [facility]6370 [address] [facility] [id number] Lymphocytes (Bld) [#/Vol] 2.3 {x10E3/uL} Normal 0.7-4.5 [facility] Work Phone: Comment on above: PATIENT WAS FASTINGP ERFORMED BY: [facility]6370 [address] [facility] [id number] Lymphocytes/100 WBC (Bld) 28 % Normal 14-46 [facility] Work Phone: Comment on above: PATIENT WAS FASTINGP ERFORMED BY: LabCo Foxnwu6447 [address] [facility] [id number] MCH (RBC) [Entitic mass] 31.2 pg Normal 27.0-34.0 [facility] Work Phone: Comment on above: PATIENT WAS FASTINGP ERFORMED BY: JAMA [facility] Tavjmg9074 [address] [facility] [place] [id number] MCHC (RBC) [Mass/Vol] 35.0 g/dL Normal 32.0-36.0 [facility] prehensive Internal Medicine Work Phone: Comment on above: PATIENT WAS FASTINGP ERFORMED BY: [facility] Qqqrwq6765 [facility] [id number] MCV (RBC) [Entitic vol] 89 fL Normal 80-98 [facility] Work Phone: Comment on above: PATIENT WAS FASTINGP ERFORMED BY: LabAdarsh Stuuqz5870 [facility] [id number] Monocytes (Bld) [#/Vol] 0.6 {x10E3/uL} Normal 0.1-1.0 [facility] Work Phone: Comment on above: PATIENT WAS FASTINGP ERFORMED BY: [facility] Krhefe0160 [facility] [id number] Monocytes/100 WBC (Bld) 8 % Normal 4-13 [facility] Work Phone: Comment on above: PATIENT WAS FASTINGP ERFORMED BY: LabAdarsh Lqkdqb2650 [facility] [id number] Neutrophils (Bld) [#/Vol] 4.9 {x10E3/uL} Normal 1.8-7.8 [facility] Work Phone: Comment on above: PATIENT WAS FASTINGP ERFORMED BY: [facility] Eygxpz7696 [address] [facility] [place] [id number] Neutrophils/100 WBC (Bld) 61 % Normal 40-74 [facility] Work Phone: Comment on above: PATIENT WAS FASTINGP ERFORMED BY: [facility] Ayzhjr1084 [address] [facility] [place] [id number] Platelets (Bld) [#/Vol] 204 {x10E3/uL} Normal 140-415 [facility] Work Phone: Comment on above: PATIENT WAS FASTINGP ERFORMED BY: JAMA [facility] Bftqgg0320 [address] [facility] [place] [id number] RBC (Bld) [#/Vol] 4.77 {x10E6/uL} Normal 4.10-5.60 [facility] Work Phone: Comment on above: PATIENT WAS FASTINGP ERFORMED BY: JAMA [facility] Izfvyv6933 [address] [facility] [place] [id number] WBC (Bld) [#/Vol] 8.1 {x10E3/uL} Normal 4.0-10.5 [facility] Work Phone: Comment on above: PATIENT WAS FASTINGP ERFORMED BY: JAMA Jiménezlin6370 [facility] [id number] Glucose, PP/2 Hour (77104)Or dered By: Subha Camacho on 01-20-2009 Glucose 2 Hr post meal [Mass/Vol] 158 mg/dL Abnormal 65-139 [facility] Work Phone: Comment on above: PATIENT WAS FASTINGC linical Information: [id number] 75G DRAWN@ 11:15AM PERFORMED BY: JAMA Nogueira6370 [facility] [id number] LIPOPROTEIN, BLD, BY NMR ([id number] 713)Ordered By: Subha Camacho on 01-20-2009 Cholesterol [Mass/Vol] 212 mg/dL Abnormal [facility] Work Phone: Comment on above: PATIENT WAS FASTINGC linical Information: [id number] PERFORMED BY: JAMA LabCothania JiménezWamgzd2031 [address] [facility] [place] [id number] Cholesterol in HDL [Mass/Vol] 45 mg/dL Normal [facility] Work Phone: Comment on above: PATIENT WAS FASTINGC linical Information: [id number] PERFORMED BY: JAMA GarciaCothania JiménezHmffts3112 [facility] [id number] Cholesterol in HDL [Mass/Vol] mg/dL Abnormal [facility] Work Phone: Comment on above: PATIENT WAS FASTINGC linical Information: [id number] PERFORMED BY: miDrive6370 [facility] ServicesCarePart[facility] [id number] Cholesterol in LDL [Mass/Vol] 123 mg/dL Abnormal [facility] Work Phone: Comment on above: . Optimal < 100 Abov e optimal 100 - 129 Borderline 130 - 159 High 160 - 189 Very high > 189 . PATIENT WAS FASTINGC linical Information: [id number] PERFORMED BY: miDrive6370 [facility] [id number] Triglyceride [Mass/Vol] 221 mg/dL Abnormal [facility] Work Phone: Comment on above: PATIENT WAS FASTINGC linical Information: [id number] PERFORMED BY: miDrive6370 [facility] ServicesCare[facility] [id number] LIPOPROTEIN, BLD, BY NMR (54258) [facility] Normal [facility] Work Phone: Comment on above: High Risk: LDL-P < 1 000; Secondary goal: Small LDL-P < 527Moderately High-Risk: LDL-P < 1300; Secondary goal: Small LDL-P < 527 PATIENT WAS FASTINGC linical Information: [id number],[id number] PERFORMED BY: miDrive6370 [facility] [id number] LIPOPROTEIN, BLD, BY NMR (02839) 2068 nmol/L Abnormal [facility] Work Phone: Comment on above: . Optimal < 1000 Abo ve optimal 1000 - 1299 Borderline 1300 - 1599 High 1600 - 2000 Very high > 2000 . PATIENT WAS FASTINGC linical Information: [id number] PERFORMED BY: inTarvo70 [facility]Care[facility] [id number] LIPOPROTEIN, BLD, BY NMR (17395) 20.2 nm Abnormal [facility] Work Phone: Comment on above: . Small (Pattern B) 18.0 - 20.5 Large (Pattern A) 20.6 - 23.0 . PATIENT WAS FASTINGC linical Information: [id number],[id number] PERFORMED BY: JAMA S[employer]Z [employer]6370 [facility]Care[facility] [id number] LIPOPROTEIN, BLD, BY NMR (52497) 14.2 nmol/L Abnormal [facility] Work Phone: Comment on above: Small LDL-P, LDL Par ticle Size, Large HDL-P and Large VLDL- Phave been validated by [employer] but not cleared by [place] FDA;the clinical utility of these test results has not been fully established. PATIENT WAS FASTINGC linical Information: [id number],[id number] PERFORMED BY: JAMA [employer]6370 [facility] [id number] LIPOPROTEIN, BLD, BY NMR (64914) 1368 nmol/L Abnormal [facility] Work Phone: Comment on above: . Low < 117 Moderate 117 - 526 Borderline 527 - 839 High > 839 . PATIENT WAS FASTINGC linical Information: [id number] PERFORMED BY: JAMA LabBABADUrp Airhuv1196 [address] AccessPayF[facility] [id number] METABOLIC PANEL, COMPREHENSI VE (08523)Ordered By: Subha Camacho on 01-20-2009 Albumin [Mass/Vol] 4.7 g/dL Normal 3.5-5.5 [facility] Internal Medicine Work Phone: Comment on above: PATIENT WAS FASTINGP ERFORMED BY: JAMA LabCo Rxqwtb7370 [facility] [id number] Albumin/Globulin [Mass ratio] 2.0 {ratio} Normal 1.1-2.5 [facility] Work Phone: Comment on above: PATIENT WAS FASTINGP ERFORMED BY: JAMA LabBABADUrp Emfygx2876 [facility] [id number] ALP [Catalytic activity/Vol] 72 [iU]/L Normal 25-150 [facility] Work Phone: Comment on above: PATIENT WAS FASTINGP ERFORMED BY: JAMA LabBABADU Tlylgf4901 [facility] [id number] ALT [Catalytic activity/Vol] 43 [iU]/L Normal 0-55 [facility] Internal Medicine Work Phone: Comment on above: PATIENT WAS FASTINGP ERFORMED BY: [facility] Hohhvx1837 [address] [facility] [place] [id number] AST [Catalytic activity/Vol] 25 [iU]/L Normal 0-40 [facility] Internal Medicine Work Phone: Comment on above: PATIENT WAS FASTINGP ERFORMED BY: [facility] Oqfnzg6783 [address] [facility] [id number] Bilirubin [Mass/Vol] 0.5 mg/dL Normal 0.1-1.2 [facility] Work Phone: Comment on above: PATIENT WAS FASTINGP ERFORMED BY: [facility] Qdighp1279 [address] [facility] [id number] Calcium [Mass/Vol] 10.2 mg/dL Normal 8.5-10.6 [facility] Internal Medicine Work Phone: Comment on above: PATIENT WAS FASTINGP ERFORMED BY: [facility] Wqbven5800 [address] [facility] [id number] Chloride [Moles/Vol] 102 mmol/L Normal 97-108 [facility] Internal Medicine Work Phone: Comment on above: PATIENT WAS FASTINGP ERFORMED BY: [facility] Maeask3577 [address] [facility] [id number] CO2 [Moles/Vol] 22 mmol/L Normal 20-32 [facility] Internal Medicine Work Phone: Comment on above: PATIENT WAS FASTINGP ERFORMED BY: [facility] Pdzooa6846 [address] [facility] [place] [id number] Creatinine [Mass/Vol] 0.98 mg/dL Normal 0.76-1.27 [facility] Internal Medicine Work Phone: Comment on above: PATIENT WAS FASTINGP ERFORMED BY: [facility] Xejzli4939 [address] [facility] [place] [id number] GFR/1.73 sq M predicted among blacks MDRD (S/P/Bld) [Vol rate/Area] mL/min/{1.73_m2} Normal [facility] Internal Medicine Work Phone: Comment on above: Note: Persistent red uction for 3 months or more in an eGFR<60 mL/min/1.73 m2 defines CKD. Patients with eGFR values>/=60 mL/min/1.73 m2 may also have CKD if evidence of persistentproteinuria is present. Additional information may be found [email or web address]. PATIENT WAS FASTINGP ERFORMED BY: JAMA [facility] Hbqftl1905 [facility] [id number] GFR/1.73 sq M.predicted MDRD (S/P/Bld) [Vol rate/Area] mL/min/{1.73_m2} Normal [facility] Internal Medicine Work Phone: Comment on above: PATIENT WAS FASTINGP ERFORMED BY: JAMA [facility]Co Uvvdml8054 [facility] [id number] Globulin (S) [Mass/Vol] 2.4 g/dL Normal 1.5-4.5 [facility] Internal Medicine Work Phone: Comment on above: PATIENT WAS FASTINGP ERFORMED BY: JAMA [facility]Co Dgkfqu1447 [facility] [id number] Glucose [Mass/Vol] 102 mg/dL Abnormal 65-99 [facility] Internal Medicine Work Phone: Comment on above: PATIENT WAS FASTINGP ERFORMED BY: JAMA [facility] Yeudwz4912 [facility] [id number] Potassium [Moles/Vol] 4.3 mmol/L Normal 3.5-5.2 [facility] Internal Medicine Work Phone: Comment on above: PATIENT WAS FASTINGP ERFORMED BY: [facility] Zqmfqd4653 [address] [facility] [id number] Protein [Mass/Vol] 7.1 g/dL Normal 6.0-8.5 [facility] Internal Medicine Work Phone: Comment on above: PATIENT WAS FASTINGP ERFORMED BY: [facility] Fuyyal0642 [facility] [id number] Sodium [Moles/Vol] 139 mmol/L Normal 135-145 [facility] Internal Medicine Work Phone: Comment on above: PATIENT WAS FASTINGP ERFORMED BY: [facility] Oivqkh5357 [facility] [id number] Urea nitrogen [Mass/Vol] 16 mg/dL Normal 5-26 [facility] Work Phone: Comment on above: PATIENT WAS FASTINGP ERFORMED BY: CB [facility] Hrzyfp3933 [facility] [id number] Urea nitrogen/Creatinine [Mass ratio] 16 mg/mg Normal 8-27 [facility] Work Phone: Comment on above: PATIENT WAS FASTINGP ERFORMED BY: [facility] Ftqyrf9955 [facility] [id number] MICROALBUMINOrdered By: Ashley Camacho on 01-20-2009 Albumin DL <= 20 mg/L (U) [Mass/Vol] 5.3 ug/mL Normal 0.0-17.0 [facility] Work Phone: Comment on above: PATIENT WAS FASTINGP ERFORMED BY: [facility] Ofgrdg8930 [facility] [id number] Albumin/Creatinine (U) [Mass ratio] 4.6 {mg/g_creat} Normal 0.0-30.0 [facility] Work Phone: Comment on above: PATIENT WAS FASTINGP ERFORMED BY: [facility] Xisffo7636 [facility] [id number] Creatinine (U) [Mass/Vol] 115.2 mg/dL Normal 22.0-328.0 [facility] Work Phone: Comment on above: PATIENT WAS FASTINGP ERFORMED BY: [facility] Fqcgxc8817 [facility] [id number] PSA (PROSTATE SPECIFIC ANTIG EN) (V76.44)Ordered By: Subha Camacho on 01-20-2009 Prostate specific Ag [Mass/Vol] 1.6 ng/mL Normal 0.0-4.0 [facility] Work Phone: Comment on above: Steve ECLIA methodol ogy. .According to the [place] [employer], Serum PSA shoulddecrease and remain [...] yr; PATIENT WAS FASTINGPERFORMED BY: CB [facility] Hbdtnj5131 [address]enez RoadDublin [place] [id number] TSH ([id number])Ordered By: Rosalind Camacho on 01-20-2009 TSH Qn 1.500 {uIU/mL} Normal 0.450-4.50 0 [facility] Work Phone: Comment on above: PATIENT WAS FASTINGP ERFORMED BY: CB [facility] Rtbphz8310 [address] RoadDublin [place] [id number] URINALYSIS, W/ MICRO ([id number]) Ordered By: Subha Camacho on 01-20-2009 Appearance (U) Clear Normal Comprehens johann Internal Medicine Work Phone: Comment on above: PATIENT WAS FASTINGP ERFORMED BY: CB [facility] Tobqjb4120 [address] RoadDublin [place] [id number] Bilirubin Ql (U) Negative Normal Comprehe nsive Internal Medicine Work Phone: Comment on above: PATIENT WAS FASTINGP ERFORMED BY: CB [facility] Qabmvp1573 [address] RoadDublin [place] [id number] Color (U) Yellow Normal [facility] Work Phone: Comment on above: PATIENT WAS FASTINGP ERFORMED BY: CB [facility] Pvphme6956 [address] RoadDublin [place] [id number] Glucose Ql (U) Negative Normal Comprehens johann Internal Medicine Work Phone: Comment on above: PATIENT WAS FASTINGP ERFORMED BY: CB [facility] Akxbdy7169 [address] RoadDublin [place] [id number] Hemoglobin Ql (U) Negative Normal Compreh ensive Internal Medicine Work Phone: Comment on above: PATIENT WAS FASTINGP ERFORMED BY: JAMA Nogueira6370 [facility] [id number] Ketones Ql (U) Negative Normal Comprehens johann Internal Medicine Work Phone: Comment on above: PATIENT WAS FASTINGP ERFORMED BY: JAMA Nogueira6370 [facility] [id number] Leukocyte esterase Test strip Ql (U) Negative Normal [facility] Work Phone: Comment on above: PATIENT WAS FASTINGP ERFORMED BY: JAMA Nogueira6370 [facility] [id number] Microscopic observation LM Nom (Urine sed) MICRON Normal [facility] Work Phone: Comment on above: Microscopic follows if indicated. PATIENT WAS FASTINGP ERFORMED BY: JAMA Jiménezlin6370 [facility] [id number] Microscopic observation LM Nom (Urine sed) See below: Normal [facility] Work Phone: Comment on above: PATIENT WAS FASTINGP ERFORMED BY: JAMA Nogueira6370 [facility] [id number] Nitrite Ql (U) Negative Normal Comprehens johann Internal Medicine Work Phone: Comment on above: PATIENT WAS FASTINGP ERFORMED BY: JAMA Jiménezlin6370 [facility] [id number] pH (U) 5.5 [pH] Normal 5.0-7.5 [facility] Work Phone: Comment on above: PATIENT WAS FASTINGP ERFORMED BY: JAMA Jiménezlin6370 [facility] [id number] Protein Ql (U) Negative Normal Comprehens johann Internal Medicine Work Phone: Comment on above: PATIENT WAS FASTINGP ERFORMED BY: JAMA Jiménezlin6370 [facility] [id number] Specific gravity (U) [Rel density] 1.017 1 Normal 1.005-1.03 0 [facility] Work Phone: Comment on above: PATIENT WAS FASTINGP ERFORMED BY: [facility]6370 [facility] [id number] Urobilinogen Test strip (U) [Mass/Vol] 0.2 mg/dL Normal 0.0-1.9 Comprehensi Internal Medicine Work Phone: Comment on above: PATIENT WAS FASTINGP ERFORMED BY: [facility]6370 [facility] [id number] Vital Signs Date Time Vital Sign Value Performing Clinician Facility 11-08-2023 10:070400 Body height 172.7 cm Patrice Edwards Jr., MD Work Phone: [facility] 10-25-2023 13:27-0400 Body height 172.7 cm Patrice Edwards Jr., MD Work Phone: [facility] 10-25-2023 13:27-0400 Diastolic blood pressure 82 mm[Hg] Patrice Edwards Jr., MD Work Phone: [facility] 10-25-2023 13:27-0400 Heart rate 77 /min Patrice Edwards Jr., MD Work Phone: [facility] 10-25-2023 13:27-0400 SaO2% (BldA) [Mass fraction] 98 % Patrice dEwards Jr., MD Work Phone: [facility] 10-25-2023 13:27-0400 Systolic blood pressure 140 mm[Hg] Patrice Edwards Jr., MD Work Phone: [facility] 10-02-2023 10:01-0400 Body mass index (BMI) [Ratio] 31.62 kg/m2 Justine Leary APRN.ASSOCIATE LOAN OFFICER Work Phone: [facility] 10-02-2023 10:01-0400 Body weight 93 kg Justine Leary APRN.ASSOCIATE LOAN OFFICER Work Phone: [facility] 10-02-2023 10:01-0400 Diastolic blood pressure 90 mm[Hg] Justine Tannhof HYDRAULIC [employer] MECHANIC.ASSOCIATE LOAN OFFICER Work Phone: [facility] 10-02-2023 10:01-0400 Heart rate 77 /min Justine Tannhof HYDRAULIC AUT[employer] JACK MECHANIC.ASSOCIATE LOAN OFFICER Work Phone: [facility] 10-02-2023 10:01-0400 Respiratory rate 16 /min Justine Tannhof HYDRAULIC AUT[employer] JACK MECHANIC.ASSOCIATE LOAN OFFICER Work Phone: [facility] 10-02-2023 10:01-0400 SaO2% (BldA) [Mass fraction] 97 % Justine Tannhof HYDRAULIC AUT[employer] JACK MECHANIC.ASSOCIATE LOAN OFFICER Work Phone: [facility] 10-02-2023 10:01-0400 Systolic blood pressure 136 mm[Hg] Justine Tannhof HYDRAULIC [employer] JACK MECHANIC.ASSOCIATE LOAN OFFICER Work Phone: [facility] 09-12-2023 13:07-0400 Body mass index (BMI) [Ratio] 31.61 kg/m2 Justine Tannhof [employer]DRA[employer]IC [employer] MECHANIC.ASSOCIATE LOAN OFFICER Work Phone: [facility] 09-12-2023 13:07-0400 Body weight 92.99 kg Justine Tannhof HYDRAULIC AUT[employer] JACK MECHANIC.ASSOCIATE LOAN OFFICER Work Phone: [facility] 09-12-2023 13:07-0400 Diastolic blood pressure 78 mm[Hg] Justine Tannhof HYDRAULIC [employer] JACK MECHANIC.ASSOCIATE LOAN OFFICER Work Phone: [facility] 09-12-2023 13:07-0400 Heart rate 89 /min Justine Tannhof HYDRAULIC AUT[employer] JACK MECHANIC.ASSOCIATE LOAN OFFICER Work Phone: [facility] 09-12-2023 13:07-0400 Respiratory rate 16 /min Justine Tannhof HYDRAULIC AUT[employer] JACK MECHANIC.ASSOCIATE LOAN OFFICER Work Phone: [facility] 09-12-2023 13:07-0400 SaO2% (BldA) [Mass fraction] 97 % Justine Tannhof HYDRAULIC AUT[employer] JACK MECHANIC.ASSOCIATE LOAN OFFICER Work Phone: [facility] 09-12-2023 13:07-0400 Systolic blood pressure 126 mm[Hg] Justine Tannhof HYDRAULIC [employer] JACK MECHANIC.ASSOCIATE LOAN OFFICER Work Phone: [facility] 11-20-2022 10:10-0400 Body height 171.5 cm Justine Samuelhof HYDRAULIC AUTO JACK MECHANIC.ASSOCIATE LOAN OFFICER Work Phone: [facility] 11-20-2022 10:10-0400 Body weight 93.44 kg Justine Samuelhof HYDRAULIC AUT[employer] JACK MECHANIC.ASSOCIATE LOAN OFFICER Work Phone: [facility] 11-20-2022 10:10-0400 Diastolic blood pressure 84 mm[Hg] Justine Samuelhof HYDRA[employer]IC [employer] JACK MECHANIC.ASSOCIATE LOAN OFFICER Work Phone: [facility] 11-20-2022 10:10-0400 Heart rate 72 /min Justine Samuelhof HYDRA[employer]IC [employer] JACK MECHANIC.ASSOCIATE LOAN OFFICER Work Phone: [facility] 11-20-2022 10:10-0400 Respiratory rate 16 /min Justine Samuelhof [employer]DRA[employer]IC [employer]ACK MECHANIC.ASSOCIATE LOAN OFFICER Work Phone: [facility] 11-20-2022 10:10-0400 SaO2% (BldA) [Mass fraction] 97 % Justine Samuelhof [employer]DRA[employer]IC [employer] JACK MECHANIC.ASSOCIATE LOAN OFFICER Work Phone: [facility] 11-20-2022 10:10-0400 Systolic blood pressure 130 mm[Hg] Justine Samuelhof HYDRAULIC [employer] JACK MECHANIC.ASSOCIATE LOAN OFFICER Work Phone: [facility] 09-24-2013 15:32-0400 BMI (Body Mass Index) 32.09 kg/m2 Subha Mireille [facility] Internal Medicine Work Phone: 09-24-2013 15:32-0400 Body weight 95.74 kg Subha Camacho [facility] Internal Medicine Work Phone: 09-24-2013 15:32-0400 BP Diastolic 78 mm[Hg] Subha Camacho [facility] Internal Medicine Work Phone: Comment on above: Patient Position: Sitting; Cuff Location : Left Arm; Cuff Size: Standard 09-24-2013 15:32-0400 BP Systolic 122 mm[Hg] [facility] Work Phone: Comment on above: Patient Position: Sitting; Cuff Location : Left Arm; Cuff Size: Standard 09-24-2013 15:320400 BSA (Body Surface Area) 2.09 m2 Subha Camacho [facility] Internal Medicine Work Phone: 09-24-2013 15:320400 Height 172.72 cm Subha Camacho [facility] Internal Medicine Work Phone: 09-24-2013 15:32-0400 Pulse (Heart Rate) 70 /min Subha Camacho [facility] Internal Medicine Work Phone: Comment on above: Pattern: Regular 09-24-2013 15:32-0400 Respiratory Rate 18 /min Subha Camacho [facility] Internal Medicine Work Phone: 07-18-2013 15:01-0400 BMI (Body Mass Index) 32.09 kg/m2 Subha Camacho [facility] Internal Medicine Work Phone: 07-18-2013 15:0400 Body weight 95.74 kg Subha Camacho [facility] Internal Medicine Work Phone: 07-18-2013 15:01-0400 BP Diastolic 82 mm[Hg] Subha Camacho [facility] Internal Medicine Work Phone: Comment on above: Patient Position: Sitting; Cuff Location : Left Arm; Cuff Size: Standard 07-18-2013 15:01-0400 BP Systolic 118 mm[Hg] Subha Camacho [facility] Internal Medicine Work Phone: Comment on above: Patient Position: Sitting; Cuff Location : Left Arm; Cuff Size: Standard 07-18-2013 15:01-0400 BSA (Body Surface Area) 2.09 m2 Subha Camacho [facility] Internal Medicine Work Phone: 07-18-2013 15:010400 Height 172.72 cm Subha Camacho [facility] Internal Medicine Work Phone: 07-18-2013 15:01-0400 Pulse (Heart Rate) 89 /min Subha Camacho [facility] Internal Medicine Work Phone: Comment on above: Pattern: Regular 07-18-2013 15:01-0400 Pulse Oximetry 98 % Subha Camacho [facility] Internal Medicine Work Phone: Comment on above: Room air 07-18-2013 15:01-0400 Respiratory Rate 18 /min Subha Camacho [facility] Internal Medicine Work Phone: Comment on above: Pattern: Unlabored 07-02-2013 15:16-0400 BMI (Body Mass Index) 32.09 kg/m2 [facility]ha [facility] Work Phone: 07-02-2013 15:16-0400 Body weight 95.74 kg Subha [facility] Work Phone: 07-02-2013 15:16-0400 BP Diastolic 76 mm[Hg] Subha Camacho [facility] Internal Medicine Work Phone: Comment on above: Patient Position: Sitting; Cuff Location : Left Arm; Cuff Size: Large 07-02-2013 15:16-0400 BP Systolic 128 mm[Hg] Subha Camacho [facility] Internal Medicine Work Phone: Comment on above: Patient Position: Sitting; Cuff Location : Left Arm; Cuff Size: Large 07-02-2013 15:16-0400 BSA (Body Surface Area) 2.09 m2 Subha [facility] Work Phone: 07-02-2013 15:16-0400 Height 172.72 cm Subha Camacho [facility] Internal Medicine Work Phone: 07-02-2013 15:16-0400 Pulse (Heart Rate) 72 /min Subha [facility] Work Phone: Comment on above: Pattern: Regular 07-02-2013 15:16-0400 Pulse Oximetry 98 % Subha [facility] Work Phone: Comment on above: Room air 07-02-2013 15:16-0400 Respiratory Rate 16 /min Subha Camacho [facility] Internal Medicine Work Phone: Comment on above: Pattern: Unlabored 06-11-2013 15:43-0400 BMI (Body Mass Index) 32.09 kg/m2 Subha [facility] Internal [facility] Work Phone: 06-11-2013 15:43-0400 Body Temperature 98.6 [degF] Subha Camacho [facility] Internal Medicine Work Phone: Comment on above: Method: Oral 06-11-2013 15:43-0400 Body weight 95.74 kg Subha Camacho [facility] Internal Medicine Work Phone: 06-11-2013 15:43-0400 BP Diastolic 84 mm[Hg] Subha Camacho [facility] Internal Medicine Work Phone: Comment on above: Patient Position: Sitting; Cuff Location : Left Arm; Cuff Size: Standard 06-11-2013 15:43-0400 BP Systolic 132 mm[Hg] Subha Camacho [facility] Internal Medicine Work Phone: Comment on above: Patient Position: Sitting; Cuff Location : Left Arm; Cuff Size: Standard 06-11-2013 15:43-0400 BSA (Body Surface Area) 2.09 m2 Subha Camacho [facility] Internal Medicine Work Phone: 06-11-2013 15:43-0400 Height 172.72 cm Subha Camacho [facility] Internal Medicine Work Phone: 06-11-2013 15:43-0400 Pulse (Heart Rate) 76 /min Subha Camacho [facility] Internal Medicine Work Phone: Comment on above: Pattern: Regular 06-11-2013 15:43-0400 Pulse Oximetry 98 % Subha Camacho [facility] Internal Medicine Work Phone: Comment on above: Room air 06-11-2013 15:43-0400 Respiratory Rate 16 /min Subha Camacho [facility] Internal Medicine Work Phone: Comment on above: Pattern: Unlabored 09-12-2012 10:59-0400 BMI (Body Mass Index) 31.94 kg/m2 Subha Camacho [facility] Internal Medicine Work Phone: 09-12-2012 10:59-0400 Body Temperature 98.4 [degF] Subha Camacho [facility] Internal Medicine Work Phone: Comment on above: Method: Oral 09-12-2012 10:59-0400 Body weight 95.28 kg Subha Camacho [facility] Internal Medicine Work Phone: 09-12-2012 10:59-0400 BP Diastolic 82 mm[Hg] Subha Camacho [facility] Internal Medicine Work Phone: Comment on above: Patient Position: Sitting; Cuff Location : Left Arm; Cuff Size: Large 09-12-2012 10:59-0400 BP Systolic 128 mm[Hg] Subha Camacho [facility] Internal Medicine Work Phone: Comment on above: Patient Position: Sitting; Cuff Location : Left Arm; Cuff Size: Large 09-12-2012 10:59-0400 BSA (Body Surface Area) 2.09 m2 Subha Camacho [facility] Internal Medicine Work Phone: 09-12-2012 10:59-0400 Height 172.72 cm Subha Camacho [facility] Internal Medicine Work Phone: 09-12-2012 10:59-0400 Pulse (Heart Rate) 60 /min Subha Camacho [facility] Internal Medicine Work Phone: Comment on above: Pattern: Regular 09-12-2012 10:59-0400 Respiratory Rate 16 /min Subha Camacho [facility] Internal Medicine Work Phone: Comment on above: Pattern: Unlabored 07-08-2012 08:57-0400 BMI (Body Mass Index) 31.68 kg/m2 Subha Camacho [facility] Internal Medicine Work Phone: 07-08-2012 08:57-0400 Body Temperature 97.8 [degF] Subha Camacho [facility] Internal Medicine Work Phone: Comment on above: Method: Oral 07-08-2012 08:57-0400 Body weight 94.52 kg Subha Camacho [facility] Internal Medicine Work Phone: 07-08-2012 08:57-0400 BP Diastolic 86 mm[Hg] Subha Camacho [facility] Internal Medicine Work Phone: Comment on above: Patient Position: Sitting; Cuff Location : Left Arm; Cuff Size: Large 07-08-2012 08:57-0400 BP Systolic 124 mm[Hg] Subha Camacho [facility] Internal Medicine Work Phone: Comment on above: Patient Position: Sitting; Cuff Location : Left Arm; Cuff Size: Large 07-08-2012 08:57-0400 BSA (Body Surface Area) 2.08 m2 Subha Camacho [facility] Internal Medicine Work Phone: 07-08-2012 08:57-0400 Height 172.72 cm Subha Camacho [facility] Internal Medicine Work Phone: 07-08-2012 08:57-0400 Pulse (Heart Rate) 72 /min Subha Camacho [facility] Internal Medicine Work Phone: Comment on above: Pattern: Regular 07-08-2012 08:57-0400 Respiratory Rate 20 /min Subha Camacho [facility] Internal Medicine Work Phone: Comment on above: Pattern: Unlabored 03-25-2012 15:55-0500 BMI (Body Mass Index) 32.6 kg/m2 Subha Camacho [facility] Internal Medicine Work Phone: 03-25-2012 15:55-0500 Body weight 97.27 kg Subha Camacho [facility] Internal Medicine Work Phone: 03-25-2012 15:55-0500 BP Diastolic 82 mm[Hg] Subha Caamcho [facility] Internal Medicine Work Phone: Comment on above: Patient Position: Sitting; Cuff Location : Left Arm; Cuff Size: Large 03-25-2012 15:55-0500 BP Systolic 128 mm[Hg] Subha Camacho [facility] Internal Medicine Work Phone: Comment on above: Patient Position: Sitting; Cuff Location : Left Arm; Cuff Size: Large 03-25-2012 15:55-0500 BSA (Body Surface Area) 2.11 m2 Subha Camacho [facility] Internal Medicine Work Phone: 03-25-2012 15:55-0500 Height 172.72 cm Subha Camacho [facility] Internal Medicine Work Phone: 03-25-2012 15:55-0500 Pulse (Heart Rate) 64 /min Subha Camacho [facility] Internal Medicine Work Phone: Comment on above: Pattern: Regular 03-25-2012 15:55-0500 Respiratory Rate 16 /min Subha Camacho [facility] Internal Medicine Work Phone: Comment on above: Pattern: Unlabored 01-08-2012 15:48-0500 BMI (Body Mass Index) 31.65 kg/m2 Subha [facility] Internal Medicine Work Phone: 01-08-2012 15:48-0500 Body Temperature 97.8 [degF] Subha Camacho [facility] Internal Medicine Work Phone: Comment on above: Method: Oral 01-08-2012 15:48-0500 Body weight 94.43 kg Subha Camacho [facility] Internal Medicine Work Phone: 01-08-2012 15:48-0500 BP Diastolic 80 mm[Hg] Subha Camacho [facility] Internal Medicine Work Phone: Comment on above: Patient Position: Sitting; Cuff Location : Left Arm; Cuff Size: Standard 01-08-2012 15:48-0500 BP Systolic 118 mm[Hg] Subha Camacho [facility] Internal Medicine Work Phone: Comment on above: Patient Position: Sitting; Cuff Location : Left Arm; Cuff Size: Standard 01-08-2012 15:48-0500 BSA (Body Surface Area) 2.08 m2 Subha Camacho [facility] Internal Medicine Work Phone: 01-08-2012 15:48-0500 Height 172.72 cm Subha Camacho [facility] Internal Medicine Work Phone: 01-08-2012 15:48-0500 Pulse (Heart Rate) 64 /min Subha Camacho [facility] Internal Medicine Work Phone: Comment on above: Pattern: Regular 01-08-2012 15:48-0500 Respiratory Rate 16 /min Subha Camacho [facility] Internal Medicine Work Phone: Comment on above: Pattern: Unlabored 11-08-2011 16:10-0400 BMI (Body Mass Index) 31.65 kg/m2 [facility] Work Phone: 11-08-2011 16:10-0400 Body Temperature 97.9 [degF] Subha Camacho [facility] Internal Medicine Work Phone: Comment on above: Method: Oral 11-08-2011 16:10-0400 Body weight 94.43 kg Subha Camacho [facility] Internal Medicine Work Phone: 11-08-2011 16:10-0400 BP Diastolic 84 mm[Hg] Subha Camacho [facility] Internal [facility] Work Phone: Comment on above: Patient Position: Sitting; Cuff Location : Left Arm; Cuff Size: Large 11-08-2011 16:10-0400 BP Systolic 122 mm[Hg] Subha Camacho [facility] Internal [facility] Work Phone: Comment on above: Patient Position: Sitting; Cuff Location : Left Arm; Cuff Size: Large 11-08-2011 16:10-0400 BSA (Body Surface Area) 2.08 m2 Subha Camacho [facility] Internal [facility] Work Phone: 11-08-2011 16:10-0400 Height 172.72 cm Subha Camacho [facility] Internal [facility] Work Phone: 11-08-2011 16:10-0400 Pulse (Heart Rate) 60 /min Subha Camacho [facility] Internal Medicine Work Phone: Comment on above: Pattern: Regular 11-08-2011 16:10-0400 Respiratory Rate 20 /min Subha Camacho [facility] Internal Medicine Work Phone: Comment on above: Pattern: Unlabored 09-06-2011 15:50-0400 BMI (Body Mass Index) 31.65 kg/m2 Subha Camacho [facility] Internal Medicine Work Phone: 09-06-2011 15:50-0400 Body weight 94.43 kg Subha Camacho [facility] Internal Medicine Work Phone: 09-06-2011 15:50-0400 BP Diastolic 78 mm[Hg] Subha Camacho [facility] Internal Medicine Work Phone: Comment on above: Patient Position: Sitting; Cuff Location : Left Arm; Cuff Size: Standard 09-06-2011 15:50-0400 BP Systolic 124 mm[Hg] Subha Camacho [facility] Internal Medicine Work Phone: Comment on above: Patient Position: Sitting; Cuff Location : Left Arm; Cuff Size: Standard 09-06-2011 15:50-0400 BSA (Body Surface Area) 2.08 m2 Subah Camacho [facility] Internal [facility] Work Phone: 09-06-2011 15:50-0400 Height 172.72 cm Subha Camacho [facility] Internal Medicine Work Phone: 09-06-2011 15:50-0400 Pulse (Heart Rate) 68 /min Subha Camacho [facility] Internal Medicine Work Phone: Comment on above: Pattern: Regular 09-06-2011 15:50-0400 Respiratory Rate 18 /min Subha Camacho [facility] Internal Medicine Work Phone: Comment on above: Pattern: Unlabored 05-04-2011 07:32-0400 BMI (Body Mass Index) 31.86 kg/m2 Subha Camacho [facility] Internal Medicine Work Phone: 05-04-2011 07:32-0400 Body Temperature 97.3 [degF] Subha Camacho [facility] Work Phone: 05-04-2011 07:32-0400 Body weight 95.06 kg Subha Camacho [facility] Internal [facility] Work Phone: 05-04-2011 07:32-0400 BP Diastolic 70 mm[Hg] Subha Camacho [facility] Internal Medicine Work Phone: Comment on above: Patient Position: Sitting; Cuff Location : Left Arm; Cuff Size: Large 05-04-2011 07:32-0400 BP Systolic 122 mm[Hg] Subha Camacho [facility] Internal [facility] Work Phone: Comment on above: Patient Position: Sitting; Cuff Location : Left Arm; Cuff Size: Large 05-04-2011 07:32-0400 BSA (Body Surface Area) 2.09 m2 Subha Camacho [facility] Internal Medicine Work Phone: 05-04-2011 07:32-0400 Height 172.72 cm uSbha Camacho [facility] Work Phone: 05-04-2011 07:32-0400 Pulse (Heart Rate) 60 /min Subha Camacho [facility] Internal [facility] Work Phone: Comment on above: Pattern: Regular 05-04-2011 07:32-0400 Respiratory Rate 16 /min Subha Camacho [facility] Internal [facility] Work Phone: Comment on above: Pattern: Unlabored 04-27-2011 07:44-0500 BMI (Body Mass Index) 31.93 kg/m2 Subha Camacho [facility] Internal Medicine Work Phone: 04-27-2011 07:44-0500 Body Temperature 97.4 [degF] Subha Camacho [facility] Internal Medicine Work Phone: Comment on above: Method: Oral 04-27-2011 07:44-0500 Body weight 95.26 kg Subha Camacho [facility] Internal Medicine Work Phone: 04-27-2011 07:44-0500 BP Diastolic 72 mm[Hg] Subha Camacho [facility] Internal Medicine Work Phone: Comment on above: Patient Position: Sitting; Cuff Location : Left Arm; Cuff Size: Large 04-27-2011 07:44-0500 BP Systolic 124 mm[Hg] Subha Camacho [facility] Internal Medicine Work Phone: Comment on above: Patient Position: Sitting; Cuff Location : Left Arm; Cuff Size: Large 04-27-2011 07:44-0500 BSA (Body Surface Area) 2.09 m2 Subha Camacho [facility] Internal Medicine Work Phone: 04-27-2011 07:44-0500 Height 172.72 cm Subha Camacho [facility] Internal [facility] Work Phone: 04-27-2011 07:44-0500 Pulse (Heart Rate) 96 /min Subha Camacho [facility] Internal Medicine Work Phone: Comment on above: Pattern: Regular 04-27-2011 07:44-0500 Respiratory Rate 16 /min Subha Camacho [facility] Internal Medicine Work Phone: Comment on above: Pattern: Unlabored 04-05-2011 11:58-0500 BMI (Body Mass Index) 31.47 kg/m2 Subha [facility] Internal Medicine Work Phone: 04-05-2011 11:58-0500 Body Temperature 97.5 [degF] Subha Camacho [facility] Internal [facility] Work Phone: 04-05-2011 11:58-0500 Body weight 93.9 kg Subha Camacho [facility] Work Phone: 04-05-2011 11:58-0500 BP Diastolic 78 mm[Hg] Subha Camacho [facility] Work Phone: Comment on above: Patient Position: Sitting; Cuff Location : Left Arm; Cuff Size: Large 04-05-2011 11:58-0500 BP Systolic 110 mm[Hg] Subha Camacho [facility] Internal Medicine Work Phone: Comment on above: Patient Position: Sitting; Cuff Location : Left Arm; Cuff Size: Large 04-05-2011 11:58-0500 BSA (Body Surface Area) 2.07 m2 Subha Camacho [facility] Internal Medicine Work Phone: 04-05-2011 11:58-0500 Height 172.72 cm Subha Camacho [facility] Work Phone: 04-05-2011 11:58-0500 Pulse (Heart Rate) 76 /min Subha Camacho [facility] Internal Medicine Work Phone: Comment on above: Pattern: Regular 04-05-2011 11:58-0500 Respiratory Rate 16 /min Subha Camacho [facility] Internal Medicine Work Phone: Comment on above: Pattern: Unlabored 10-19-2010 13:30-0400 BMI (Body Mass Index) 30.93 kg/m2 Subha [facility] Internal Medicine Work Phone: 10-19-2010 13:30-0400 Body Temperature 98.3 [degF] Subha Camacho [facility] Internal Medicine Work Phone: Comment on above: Method: Oral 10-19-2010 13:30-0400 Body weight 92.28 kg Subha Camacho [facility] Internal Medicine Work Phone: 10-19-2010 13:30-0400 BP Diastolic 80 mm[Hg] Subha Camacho [facility] Internal [facility] Work Phone: Comment on above: Patient Position: Sitting; Cuff Location : Left Arm; Cuff Size: Small 10-19-2010 13:30-0400 BP Systolic 122 mm[Hg] Subha Camacho [facility] Internal [facility] Work Phone: Comment on above: Patient Position: Sitting; Cuff Location : Left Arm; Cuff Size: Small 10-19-2010 13:30-0400 BSA (Body Surface Area) 2.06 m2 Subha Camacho [facility] Internal [facility] Work Phone: 10-19-2010 13:30-0400 Height 172.72 cm Subha Camacho [facility] Work Phone: 10-19-2010 13:30-0400 Pulse (Heart Rate) 68 /min Subha Camacho [facility] Internal [facility] Work Phone: Comment on above: Pattern: Regular 10-19-2010 13:30-0400 Respiratory Rate 16 /min Subha Camacho [facility] Internal [facility] Work Phone: Comment on above: Pattern: Unlabored 10-03-2010 15:24-0400 BMI (Body Mass Index) 29.81 kg/m2 Subha Camacho [facility] Internal Medicine Work Phone: 10-03-2010 15:24-0400 Body Temperature 97.7 [degF] Subha Camacho [facility] Internal [facility] Work Phone: Comment on above: Method: Oral 10-03-2010 15:24-0400 Body weight 88.93 kg Subha Camacho [facility] Internal [facility] Work Phone: 10-03-2010 15:24-0400 BP Diastolic 78 mm[Hg] Subha Camacho [facility] Work Phone: Comment on above: Patient Position: Sitting; Cuff Location : Left Arm; Cuff Size: Large 10-03-2010 15:24-0400 BP Systolic 122 mm[Hg] [facility] Work [facility]: Comment on above: Patient Position: Sitting; Cuff Location : Left Arm; Cuff Size: Large 10-03-2010 15:24-0400 BSA (Body Surface Area) 2.03 m2 Subha Camacho [facility] Internal Medicine Work Phone: 10-03-2010 15:24-0400 Height 172.72 cm Subha [facility] Internal Medicine Work Phone: 10-03-2010 15:24-0400 Pulse (Heart Rate) 68 /min [facility] Work Phone: Comment on above: Pattern: Regular 10-03-2010 15:24-0400 Respiratory Rate 20 /min [facility] Work Phone: Comment on above: Pattern: Unlabored 09-16-2010 08:01-0400 BMI (Body Mass Index) 30.61 kg/m2 Subha Camacho [facility] Internal Medicine Work Phone: 09-16-2010 08:01-0400 Body weight 91.32 kg Subha Camacho [facility] Work Phone: 09-16-2010 08:01-0400 BP Diastolic 90 mm[Hg] [facility] Work Phone: Comment on above: Patient Position: Sitting; Cuff Location : Left Arm; Cuff Size: Large 09-16-2010 08:01-0400 BP Systolic 124 mm[Hg] [facility] Work Phone: Comment on above: Patient Position: Sitting; Cuff Location : Left Arm; Cuff Size: Large 09-16-2010 08:01-0400 BSA (Body Surface Area) 2.05 m2 Subha [facility] Internal Medicine Work Phone: 09-16-2010 08:01-0400 Height 172.72 cm [facility] Work Phone: 09-16-2010 08:01-0400 Pulse (Heart Rate) 80 /min [facility] Internal Medicine Work Phone: Comment on above: Pattern: Regular 09-16-2010 08:01-0400 Respiratory Rate 20 /min Subha Camacho [facility] Internal Medicine Work Phone: Comment on above: Pattern: Unlabored 09-08-2010 14:39-0400 BMI (Body Mass Index) 31.7 kg/m2 Subha [facility] Internal Medicine Work Phone: 09-08-2010 14:39-0400 Body Temperature 98.4 [degF] Subha Camacho [facility] Internal Medicine Work Phone: Comment on above: Method: Oral 09-08-2010 14:39-0400 Body weight 94.58 kg Subha Camacho [facility] Internal Medicine Work Phone: 09-08-2010 14:39-0400 BP Diastolic 82 mm[Hg] Subha Camacho [facility] Work Phone: Comment on above: Patient Position: Sitting; Cuff Location : Left Arm; Cuff Size: Standard 09-08-2010 14:39-0400 BP Systolic 122 mm[Hg] Subha Camacho [facility] Work Phone: Comment on above: Patient Position: Sitting; Cuff Location : Left Arm; Cuff Size: Standard 09-08-2010 14:39-0400 BSA (Body Surface Area) 2.08 m2 Subha Camacho [facility] Internal [facility] Work Phone: 09-08-2010 14:39-0400 Height 172.72 cm Subha Camacho [facility] Work Phone: 09-08-2010 14:39-0400 Pulse (Heart Rate) 68 /min Subha Camacho [facility] Work Phone: Comment on above: Pattern: Regular 09-08-2010 14:39-0400 Pulse Oximetry 97 % Subha Camacho [facility] Internal Medicine Work Phone: Comment on above: Room air 08-15-2010 16:10-0400 BMI (Body Mass Index) 31.7 kg/m2 Subha [facility] Work Phone: 08-15-2010 16:10-0400 Body Temperature 97.5 [degF] Subha Camacho [facility] Internal [facility] Work Phone: Comment on above: Method: Oral 08-15-2010 16:10-0400 Body weight 94.58 kg Subha Camacho [facility] Work Phone: 08-15-2010 16:10-0400 BP Diastolic 74 mm[Hg] Subha Camacho [facility] Work Phone: Comment on above: Patient Position: Sitting; Cuff Location : Left Arm; Cuff Size: Standard 08-15-2010 16:10-0400 BP Systolic 126 mm[Hg] Subha Camacho [facility] Internal [facility] Work Phone: Comment on above: Patient Position: Sitting; Cuff Location : Left Arm; Cuff Size: Standard 08-15-2010 16:10-0400 BSA (Body Surface Area) 2.08 m2 Subha Camacho [facility] Internal [facility] Work Phone: 08-15-2010 16:10-0400 Height 172.72 cm Subha Camacho [facility] Work Phone: 08-15-2010 16:10-0400 Pulse (Heart Rate) 72 /min Subha Camacho [facility] Internal Medicine Work Phone: Comment on above: Pattern: Regular 08-15-2010 16:10-0400 Respiratory Rate 16 /min Subha Camacho [facility] Internal Medicine Work Phone: Comment on above: Pattern: Unlabored 08-03-2010 10:35-0400 BMI (Body Mass Index) 31.7 kg/m2 [facility] Internal Medicine Work Phone: 08-03-2010 10:35-0400 Body Temperature 98 [degF] Subha Camacho [facility] Medicine Work Phone: Comment on above: Method: Oral 08-03-2010 10:35-0400 Body weight 94.58 kg Subha Camacho [facility] Internal Medicine Work Phone: 08-03-2010 10:35-0400 BP Diastolic 80 mm[Hg] Subha Camacho [facility] Work Phone: Comment on above: Patient Position: Sitting; Cuff Location : Left Arm; Cuff Size: Standard 08-03-2010 10:35-0400 BP Systolic 130 mm[Hg] Subha Camacho [facility] Work Phone: Comment on above: Patient Position: Sitting; Cuff Location : Left Arm; Cuff Size: Standard 08-03-2010 10:35-0400 BSA (Body Surface Area) 2.08 m2 Subha Camacho [facility] Internal Medicine Work Phone: 08-03-2010 10:35-0400 Height 172.72 cm Subha Camacho [facility] Work Phone: 08-03-2010 10:35-0400 Pulse (Heart Rate) 64 /min Subha Camacho [facility] Internal Medicine Work Phone: Comment on above: Pattern: Regular 08-03-2010 10:35-0400 Respiratory Rate 17 /min Subha Camacho [facility] Internal Medicine Work Phone: Comment on above: Pattern: Unlabored 05-30-2010 15:25-0400 BMI (Body Mass Index) 31.7 kg/m2 Subha Camacho [facility] Internal Medicine Work Phone: 05-30-2010 15:25-0400 Body weight 94.58 kg Subha Camacho [facility] Internal Medicine Work Phone: 05-30-2010 15:25-0400 BP Diastolic 80 mm[Hg] Subha Camacho [facility] Internal Medicine Work Phone: Comment on above: Patient Position: Sitting; Cuff Location : Left Arm; Cuff Size: Large 05-30-2010 15:25-0400 BP Systolic 122 mm[Hg] [facility] Work Phone: Comment on above: Patient Position: Sitting; Cuff Location : Left Arm; Cuff Size: Large 05-30-2010 15:25-0400 BSA (Body Surface Area) 2.08 m2 Subha Camacho [facility] Internal Medicine Work Phone: 05-30-2010 15:25-0400 Height 172.72 cm Subha Camacho [facility] Internal Medicine Work Phone: 05-30-2010 15:25-0400 Pulse (Heart Rate) 72 /min Subha Camacho [facility] Internal Medicine Work Phone: Comment on above: Pattern: Regular 05-30-2010 15:25-0400 Respiratory Rate 20 /min Subha Camacho [facility] Internal Medicine Work Phone: Comment on above: Pattern: Unlabored 01-31-2010 16:13-0500 BMI (Body Mass Index) 31.56 kg/m2 Subha Camacho [facility] Internal Medicine Work Phone: 01-31-2010 16:13-0500 Body weight 94.15 kg Subha Camacho [facility] Work Phone: 01-31-2010 16:13-0500 BP Diastolic 64 mm[Hg] Subha Camacho [facility] Work Phone: Comment on above: Patient Position: Standing; Cuff Locatio n: Left Arm; Cuff Size: Standard 01-31-2010 16:13-0500 BP Systolic 118 mm[Hg] Subha Camacho [facility] Work Phone: Comment on above: Patient Position: Standing; Cuff Locatio n: Left Arm; Cuff Size: Standard 01-31-2010 16:13-0500 BSA (Body Surface Area) 2.08 m2 Subha Camacho [facility] Work Phone: 01-31-2010 16:13-0500 Height 172.72 cm Subha Camacho [facility] Work Phone: 01-31-2010 16:13-0500 Pulse (Heart Rate) 60 /min Subha Camacho [facility] Work Phone: Comment on above: Pattern: Regular 01-31-2010 16:13-0500 Respiratory Rate 20 /min Subha Camacho [facility] Work Phone: Comment on above: Pattern: Unlabored 10-13-2009 15:46-0400 BMI (Body Mass Index) 30.15 kg/m2 Subha Camacho [facility] Internal Medicine Work Phone: 10-13-2009 15:46-0400 Body weight 89.95 kg Subha Camacho [facility] Work Phone: 10-13-2009 15:46-0400 BP Diastolic 84 mm[Hg] Subha Camacho [facility] Work Phone: Comment on above: Patient Position: Sitting; Cuff Location : Left Arm; Cuff Size: Large 10-13-2009 15:46-0400 BP Systolic 128 mm[Hg] Subha Camacho [facility] Work Phone: Comment on above: Patient Position: Sitting; Cuff Location : Left Arm; Cuff Size: Large 10-13-2009 15:46-0400 BSA (Body Surface Area) 2.04 m2 Subha Camacho [facility] Work Phone: 10-13-2009 15:46-0400 [facility] 172.72 [facility] Work Phone: 10-13-2009 15:46-0400 Pulse (Heart Rate) 68 /min Subha Camacho [facility] Work Phone: Comment on above: Pattern: Regular 10-13-2009 15:46-0400 Respiratory Rate 20 /min Subha Camacho [facility] Work Phone: Comment on above: Pattern: Unlabored 06-09-2009 16:04-0400 BMI (Body Mass Index) 30.9 kg/m2 [facility] Work Phone: 06-09-2009 16:04-0400 Body weight 92.19 kg Subha Camacho [facility] Work Phone: 06-09-2009 16:04-0400 BP Diastolic 82 mm[Hg] Subha Camacho [facility] Work Phone: Comment on above: Patient Position: Sitting; Cuff Location : Left Arm; Cuff Size: Large 06-09-2009 16:04-0400 BP Systolic 118 mm[Hg] [facility] Work Phone: Comment on above: Patient Position: Sitting; Cuff Location : Left Arm; Cuff Size: Large 06-09-2009 16:04-0400 BSA (Body Surface Area) 2.06 m2 Subha Camacho [facility] Work Phone: 06-09-2009 16:04-0400 Height 172.72 cm Subha Camacho [facility] Work Phone: 06-09-2009 16:04-0400 Pulse (Heart Rate) 60 /min Subha Camacho [facility] Work Phone: Comment on above: Pattern: Regular 06-09-2009 16:04-0400 Respiratory Rate 16 /min Subha Camacho [facility] Work Phone: Comment on above: Pattern: Unlabored 01-25-2009 16:44-0500 BMI (Body Mass Index) 31.69 kg/m2 Subha Camacho [facility] Work Phone: 01-25-2009 16:44-0500 Body weight 94.55 kg Subha Camacho [facility] Work Phone: 01-25-2009 16:44-0500 BP Diastolic 90 mm[Hg] Subha Camacho [facility] Work Phone: Comment on above: Patient Position: Sitting; Cuff Location : Left Arm; Cuff Size: Large 01-25-2009 16:44-0500 BP Systolic 124 mm[Hg] Subha Camacho [facility] Work Phone: Comment on above: Patient Position: Sitting; Cuff Location : Left Arm; Cuff Size: Large 01-25-2009 16:44-0500 BSA (Body Surface Area) 2.08 m2 Subha Camacho [facility] Work Phone: 01-25-2009 16:44-0500 Head Circumference 0 cm Subha Camacho [facility] Work Phone: 01-25-2009 16:44-0500 Height 172.72 cm Subha Camacho [facility] Work Phone: 01-25-2009 16:44-0500 Pulse (Heart Rate) 80 /min Subha Camacho [facility] Work Phone: Comment on above: Pattern: Regular 01-25-2009 16:44-0500 Respiratory Rate 20 /min Subha Camacho [facility] Work Phone: Comment on above: Pattern: Unlabored 01-18-2009 14:06-0500 BMI (Body Mass Index) 31.69 kg/m2 Subha Camacho [facility] Work Phone: 01-18-2009 14:06-0500 Body weight 94.55 kg Subha Camacho [facility] Work Phone: 01-18-2009 14:06-0500 BP Diastolic 88 mm[Hg] Subha Camacho [facility] Work Phone: Comment on above: Patient Position: Sitting; Cuff Location : Left Arm; Cuff Size: Large 01-18-2009 14:06-0500 BP Systolic 124 mm[Hg] Subha Camacho [facility] Work Phone: Comment on above: Patient Position: Sitting; Cuff Location : Left Arm; Cuff Size: Large 01-18-2009 14:06-0500 BSA (Body Surface Area) 2.08 m2 Subha Camacho [facility] Work Phone: 01-18-2009 14:06-0500 Head Circumference 0 cm Subha Camacho [facility] Work Phone: 01-18-2009 14:06-0500 Height 172.72 cm Subha Camacho [facility] Work Phone: 01-18-2009 14:06-0500 Pulse (Heart Rate) 60 /min Subha Camacho [facility] Work Phone: Comment on above: Pattern: Regular 01-18-2009 14:06-0500 Respiratory Rate 20 /min Subha Camacho [facility] Work Phone: Comment on above: Pattern: Unlabored Encounters Encounter Date Encounter Type Care Provider Facility Start: 12-07-2023 End: 12-07-2023 Telephone encounter Patrice Edwards MD Work Phone: Urology Comment on above: Patient Update Start: 12-03-2023 End: 12-03-2023 Telephone encounter Patrice Edwards MD Work Phone: [facility] Comment on above: Appointment Start: 12-03-2023 End: 12-03-2023 ambulatory PATRICE EDWARDS JR Facility:[facility] Start: 11-27-2023 End: 11-27-2023 ambulatory LILIAN Fall [facility] Facility:[facility] Start: 11-13-2023 End: 11-13-2023 Admission to same day surgery center Patrice Edwards MD Work Phone: [facility] Comment on above: schedule surgery Start: 11-13-2023 End: 11-13-2023 ambulatory Patrice Edwards Jr., MD Work Phone: [facility] Start: 11-13-2023 End: 11-13-2023 Telephone encounter Patrice Edwards MD Work Phone: Urology Comment on above: Schedule Surgery Start: 11-08-2023 End: 11-08-2023 Patient encounter procedure Patrice Edwards MD Work Phone: [facility] Comment on above: Kidney stones [N20.0 ] (Primary Dx) Start: 11-08-2023 End: 11-08-2023 ambulatory PATRICE EDWARDS JR Facility:[facility] Start: 11-01-2023 End: 11-01-2023 ambulatory LILIAN Eufemia [facility] Facility:[facility] Start: 11-01-2023 End: 11-01-2023 Patient encounter procedure Ida Carlton MD Work Phone: Orthopaedics Comment on above: Bilateral hip pain Start: 10-30-2023 End: 10-30-2023 ambulatory [facility] Facility:[facility] Start: 10-30-2023 End: 10-30-2023 Subsequent hospital visit by physician [facility] Work Phone: Radiology Comment on above: Kidney stone [N20.0] Start: 10-25-2023 End: 10-25-2023 Patient encounter procedure Patrice Edwards MD Work Phone: [facility] Comment on above: Kidney stone (Primar y Dx); Elevated PSA; Flank pain; Encounter for observation for other suspected diseases and conditions ruled out Start: 10-25-2023 End: 10-25-2023 ambulatory PATRICE EDWARDS JR Facility:[facility] Start: 10-18-2023 End: 10-18-2023 ambulatory Justine Leary APRN.ASSOCIATE LOAN OFFICER Work Phone: [facility] Comment on above: ultra sound Start: 10-18-2023 End: 10-18-2023 Telephone encounter Justine Leary APRN.ASSOCIATE LOAN OFFICER Work Phone: [facility] Comment on above: Results (Us Kidney/b ladder ) Start: 10-15-2023 End: 10-15-2023 ambulatory [facility] Facility:[facility] Start: 10-15-2023 End: 10-15-2023 Subsequent hospital visit by physician [facility] Work Phone: Radiology Comment on above: History of flank jourdan n [Z87.898] Start: 10-03-2023 Telephone encounter Justine garcia [employer]CH[employer]IC.ASSOCIATE LOAN OFFICER Work Phone: [facility] Comment on above: Results (Labs/urine ) Start: 10-02-2023 End: 10-02-2023 Patient encounter procedure Justine Leary APRN.ASSOCIATE LOAN OFFICER Work Phone: [facility] Comment on above: History of flank jourdan n (Primary Dx); Dark urine; Elevated PSA Start: 10-02-2023 End: 10-02-2023 ambulatory JUSTINE LEARY Facility:[facility] Start: 09-17-2023 Telephone encounter Justine garcia [employer]CH[employer]IC.ASSOCIATE LOAN OFFICER Work Phone: [facility] [place] Comment on above: Results (Xray Hips ) Start: 09-14-2023 Telephone encounter Justine garcia APRN.CNP Work Phone: [facility] [place] Comment on above: Results (Knee Xray ) Start: 09-12-2023 End: 09-12-2023 Subsequent hospital visit by physician Haylee [facility] [place] Work Phone: Radiology Comment on above: Pain in both knees, unspecified chronicity [M25.561, M25.562] Start: 09-12-2023 End: 09-12-2023 ambulatory LILIAN ARCOSDOUGLAS Facility:[facility] Start: 09-12-2023 End: 09-12-2023 Patient encounter procedure Justine Leary APRN.ASSOCIATE LOAN OFFICER Work Phone: [facility] [place] Comment on above: Pain in both knees, unspecified chronicity (Primary Dx); Bilateral hip pain Start: 06-08-2023 ambulatory Ny Goldstein MA [facility] [place] Comment on above: Population Health [facility] ([employer] work[employer] - AWV, Care gaps, HCC gap closure - [place] [facility]) Start: 04-12-2023 End: 04-12-2023 ambulatory Jolene Romero PTA Work Phone: [facility] Comment on above: Acute pain of right shoulder (Primary Dx); Chronic neck pain Start: 04-10-2023 End: 04-10-2023 ambulatory Bel O'Derrick PT [facility] Comment on above: Acute pain of right shoulder (Primary Dx); Chronic neck pain Start: 04-04-2023 End: 04-04-2023 ambulatory Bel O'Derrick PT [facility] Comment on above: Numbness of hand (Pr imary Dx); DDD (degenerative disc disease), cervical Start: 01-15-2023 End: 01-15-2023 ambulatory JUSTINE LEARY Facility:[facility] Start: 01-15-2023 End: 01-15-2023 Patient encounter procedure Jasmina Reyes PA-C Work Phone: Orthopaedics Comment on above: Bursitis of right sh oulder (Primary Dx); Acute pain of right shoulder; Chronic neck pain; Numbness of hand; DDD (degenerative disc disease), cervical Start: 11-23-2022 Telephone encounter Justine Denny nhof [employer]CHANIC.ASSOCIATE LOAN OFFICER Work Phone: [facility] [place] Comment on above: Results (Labs and Xr ay ); Orders Start: 11-20-2022 End: 11-20-2022 Subsequent hospital visit by physician [facility] Work Phone: Radiology Comment on above: Acute pain of right shoulder [M25.511] Start: 11-20-2022 End: 11-20-2022 Patient encounter procedure Justine Leary [employer]CH[employer]IC.ASSOCIATE LOAN OFFICER Work Phone: [facility] [place] Comment on above: Medicare annual well ness visit, initial (Primary Dx); Chronic neck pain; Acute pain of right shoulder; Hyperlipidemia with target LDL less than 100; Elevated PSA Start: 10-10-2021 Telephone encounter Justine garcia [employer]CH[employer]IC.ASSOCIATE LOAN OFFICER Work Phone: [facility] [place] Comment on above: Results (Cologuard) Start: 10-01-2021 Chart abstracting Justine Allen of [employer]CH[employer]IC.ASSOCIATE LOAN OFFICER Work Phone: [facility] [place] Comment on above: Abstract; external d ocument Start: 09-29-2021 Telephone encounter Lilian williamson MD Work Phone: [facility] [place] Comment on above: Results (Labs ([facility]) ) Start: 09-22-2021 End: 09-22-2021 Patient encounter procedure Justine Leary APRN.ASSOCIATE LOAN OFFICER Work Phone: [facility] [place] Comment on above: Nonintractable heada mandy, unspecified chronicity pattern, unspecified headache type (Primary Dx); Screening for colon cancer; Screening cholesterol level; Screening for diabetes mellitus; Elevated PSA; Encounter for immunization Start: 09-24-2013 End: 09-24-2013 Office outpatient visit 15 minutes Subha [facility] Start: 07-28-2013 End: 07-28-2013 Nursing evaluation of patient and report Subha [facility] Start: 07-18-2013 End: 07-18-2013 Patient encounter procedure Subha [facility] Start: 07-02-2013 End: 07-02-2013 Patient encounter procedure Subha [facility] Start: 06-11-2013 End: 06-11-2013 Patient encounter procedure Subha Camacho [facility] Start: 09-12-2012 End: 09-13-2012 Patient encounter procedure Subha Camacho [facility] Start: 07-08-2012 End: 07-08-2012 Patient encounter procedure Subha Camacho [facility] Start: 03-25-2012 End: 03-25-2012 Patient encounter procedure Subha Camacho [facility] Start: 01-08-2012 End: 01-08-2012 Patient encounter procedure Subha Camacho [facility] Start: 11-08-2011 End: 11-09-2011 Patient encounter procedure Subha Camacho [facility] Start: 09-06-2011 End: 09-06-2011 Patient encounter procedure Subha Camacho [facility] Start: 08-28-2011 End: 08-28-2011 Lab Order Subha Mireille [facility] Start: 05-04-2011 End: 05-04-2011 Patient encounter procedure Subhacrow Marteon [facility] Start: 04-27-2011 End: 04-27-2011 Patient encounter procedure Subha Camacho [facility] Start: 04-05-2011 End: 04-05-2011 Patient encounter procedure Subha Marteon [facility] Start: 10-19-2010 End: 10-19-2010 Patient encounter procedure Subhacrow Marteon [facility] Start: 10-03-2010 End: 10-03-2010 Patient encounter procedure Subhacrow Camacho [facility] Start: 09-16-2010 End: 09-16-2010 Patient encounter procedure Subhacrow Marteon [facility] Start: 09-12-2010 End: 09-12-2010 Annotation/Addendum Subha Camacho [facility] Start: 09-08-2010 End: 09-08-2010 Office outpatient visit 15 minutes Subha Camacho [facility] Start: 08-15-2010 End: 08-15-2010 Office outpatient visit 15 minutes Subha Camacho [facility] Start: 08-05-2010 End: 08-05-2010 Phone Encounter Subha Mireille [facility] Start: 08-03-2010 End: 08-03-2010 Office outpatient visit 25 minutes Subha Camacho [facility] Start: 05-30-2010 End: 05-30-2010 Patient encounter procedure [facility]ha Mireille [facility] Start: 05-23-2010 End: 05-23-2010 Erroneous Entry Subha Camacho [facility] Start: 01-31-2010 End: 01-31-2010 Patient encounter procedure Subha Camacho [facility] Start: 10-13-2009 End: 10-14-2009 Patient encounter procedure [facility]ha [facility] Start: 06-09-2009 End: 06-09-2009 Patient encounter procedure Subha Camacho [facility] Start: 01-25-2009 End: 01-25-2009 Office outpatient visit 15 minutes Subha Camacho [facility] Start: 01-18-2009 End: 01-18-2009 Patient encounter procedure Subha Camacho [facility] Start: 01-18-2009 End: 01-18-2009 Historical Summary [facility]ha Camacho [facility] Procedures Date Procedure Procedure Detail Performing Clinician Start: 11-08-2023 Urnls dip stick/tablet rgnt auto w/o microscopy Patrice Edwards MD Work Phone: Start: 10-30-2023 Ct abdomen & pelvis w/o contrast material Patrice Edwards MD Work Phone: Start: 10-25-2023 Urnls dip stick/tablet rgnt auto w/o microscopy Patrice Edwards MD Work Phone: Start: 10-02-2023 Urnls dip stick/tablet rgnt auto w/o microscopy Justine Leary APRN.ASSOCIATE LOAN OFFICER Work Phone: Start: 09-12-2023 Radex hips bilateral with pelvis minimum 5 views Justine Leary APRN.ASSOCIATE LOAN OFFICER Work Phone: Start: 11-21-2022 Lipid 1996 panel - Serum or Plasma Justine Leary APRN.ASSOCIATE LOAN OFFICER Work Phone: Start: 11-20-2022 Radex spine cervical 4 or 5 views Justine Leary APRN.ASSOCIATE LOAN OFFICER Work Phone: Start: 09-22-2021 [employer] COVID-19 VACCINE, AGE 12+ YR (LOZANO TOP) Justine Leary APRN.ASSOCIATE LOAN OFFICER Work Phone: Start: 09-22-2021 Adult depression screening assessment Justine Leary TARAS[employer] Work Phone: Start: 09-28-2020 Lipid 1996 panel - Serum or Plasma Justine Leary APRN.CNP Work Phone: Start: 11-02-2014 End: 11-02-2014 Lower Ext/Jt Only/W Contrast Comments: See Note; NOTES: [facility] Imaging Services [address] [place] [address] MRI Report MR#: [id number] Acct: [id number] Name: BONNIE MARTINEZ Rep #: [id number] : 1955 M 58 From: Max Espinoza MD PCP: Subha Camacho DO Status: REG CLI Study: Lower Ext/Jt Only/W Contrast Date of Exam: 11/02/14 Exam# [id number] Ordering Dr: Bonnie Sanders MD STUDY: MRI [...] the femoral head neck junction, with pistol tour leader deformity (coronal T1 series 4 image 13). [...] FACR at 13:00 EDT , Service support [phone], CC: Bonnie Sanders MD; Subha Camacho DO Box Gluer: Christel Rush Work Phone: Start: 11-02-2014 End: 11-02-2014 Arthrogram Hip w/ MRI Comments: See Note; NOTES: [facility] Imaging Services [address] [place] [address] Radiology Report MR#: [id number] Acct: [id number] Name: JUANBONNIE Spann Rep #: [id number] : 1955 M 58 From: Rhett Randall MD PCP: Subha Camacho DO Status: [facility] CL Study: Arthrogram Hip w/ MRI Date of Exam: 11/02/14 Exam# [id number] Ordering Dr: Bonnie Sanders MD CLINICAL HISTORY: [...] Rhett Randall MD at 11:38 EDT Tel [phone], Service support [phone], RAD/Arthrogram Hip w/ MRI IMPRESSION: Successful right hip arthrogram with injection of 12 cc of MRI contrast material. Electronically Signed: Rhett Randall MD at 11:38 EDT Tel [phone], Service support [phone], CC: Bonnie Sanders MD; Subha Camacho DO Box Gluer: Christel Rush Work Phone: Start: 10-30-2014 End: 10-30-2014 Lower Ext/Jt Only/W Contrast Comments: See Note; NOTES: [facility] Imaging Services [address] [place] [address] MRI Report MR#: [id number] Acct: [id number] Name: BONNIE MARTINEZ Maria Ines Rep #: [id number] : 1955 58 From: Addison Paige MD PCP: Subha Camacho DO Status: REG CLI Study: Lower Ext/Jt Only/W Contrast Date of Exam: 10/30/14 Exam# [id number] Ordering Dr: Bonnie Sanders MD STUDY: MRI [...] MD at 13:58 EDT , Service support [phone], CC: Bonnie Sanders MD; Subha Camacho DO Box Gluer: Signed Malia R[facility] Work Phone: Start: 10-30-2014 End: 10-30-2014 Arthrogram Hip w/ MRI Comments: See Note; NOTES: [facility] Imaging Services [address] [place] [address] Radiology Report MR#: [id number] Acct: [id number] Name: BONNIE MARTINEZ Rep #: [id number] : 1955 M 58 From: Diana Gallardo MD PCP: Subha Camacho DO Status: REG CLI Study: Arthrogram Hip w/ MRI Date of Exam: 10/30/14 Exam# [id number] Ordering Dr: Bonnie Sanders MD PROCEDURE: ARTHROGRAM [...] at 13:44 EDT Tel , Service support [phone], RAD/Arthrogram Hip w/ MRI IMPRESSION: There is no evidence of intra-articular loose bodies. Electronically Signed: Emil Gallardo MD at 13:44 EDT Tel , Service support [phone], CC: Bonnie Sanders MD; Subha Camacho DO Box Gluer: Signed Malia Rush Work Phone: Start: 06-11-2013 End: 06-11-2013 Ecg routine ecg w/least 12 lds w/i&r [MEASUREMENTS ANALYSIS] Date of Test: 06/11/2013 16:34:23; Heart Rate: 61; [place] Interval: 152; QRS: 106; QT Interval: 398; Corrected QT Interval (QTc): 399; P Wave Derry: 29; QRS Wave Derry: -15; T Wave Derry: -1; Blood Pressure: 132/84 [ECG DIAGNOSTIC STATEMENTS] Date of Test: 06/11/2013 16:34:23; Summary: Sinus Rhythm WITHIN NORMAL LIMITS Subha Camacho Work Phone: Comment on above: nsr no acute Plan of Treatment Date Care Activity Detail Author Start: 2032 RSV Vaccine (1 - 1-d ose 75+ series) RSV Vaccine (1 - 1-dose 75+ series) [facility] Start: 10-01-2028 Prostate specific antigen measurement Prostate Cancer Screening Discussion [facility] Start: 11-22-2027 Lipid 1996 panel - Serum or Plasma Lipid Screening [facility] Start: 11-22-2027 Lipid panel Lipid Screening [facility] Start: 11-22-2027 Prostate Cancer Screening Discussion Prostate Cancer Screening Discussion [facility] Start: 11-22-2027 Prostate specific antigen measurement Prostate Cancer Screening Discussion [facility] Start: 06-28-2027 Urine microalbumin profile [facility] Start: 10-01-2026 Diabetes Screening Diabetes Screenin g [facility] Start: 11-21-2025 Diabetes Screening Diabetes Screenin g [facility] Start: 09-28-2025 Lipid 1996 panel - Serum or Plasma Lipid Screening [facility] Start: 09-28-2025 LIPID SCREEN LIPID SCREEN [facility] Start: 11-05-2024 PROSTATE CANCER SCREENING DISCUSSION PROSTATE CANCER SCREENING DISCUSSION [facility] Start: 10-03-2024 COLOGUARD (FIT-DNA) COLOGUARD (FIT-D NA) [facility] Start: 10-03-2024 Colorectal Cancer Screening Colorectal Cancer Screening [facility] Start: 10-03-2024 Screening for malign ant neoplasm of colon [facility] Start: 10-01-2024 Annual PCP Team [employer] harriet Disease Visit Annual PCP Team Chronic Disease Visit [facility] Start: 09-11-2024 Annual PCP Team [employer] harriet Disease Visit Annual PCP Team Chronic Disease Visit [facility] Start: 09-11-2024 BP Controlled (<130/80) BP Controlle d (<130/80) [facility] Start: 02-06-2024 End: 02-06-2024 Patient encounter procedure 02/06/2024 10:20 AM EST Appointment [facility] [address] [place] [address] Encounter for observation for other suspected diseases and conditions ruled out [Z03.89] [facility] Comment on above: Encounter for observ ation for other suspected diseases and conditions ruled out [Z03.89] Start: 01-09-2024 End: 01-09-2024 Patient encounter procedure 01/09/2024 2:00 PM EST Office Visit [facility] [address] [place] [phone] Patrice Edwards Jr., MD [address] [place], [place] [id number] post op, kub prior [facility] Comment on above: post op, kub prior Start: 12-10-2023 End: 01-01-2025 XR Abdomen Supine and Upright XR ABDOMEN 1V SUPINE Radiology Routine Kidney stone Expected: 12/10/2023, Expires: 01/01/2025 [facility] Work Phone: Comment on above: Expected: 12/10/2023 , Expires: 01/01/2025 Start: 12-03-2023 End: 12-03-2023 Lithotripsy [employer] shock wave EXTRACORPOREAL SHOCKWAVE LITHOTRIPSY UNILATERAL Calculus, renal 12/03/2023 10:18 AM EDT [place] [facility] Start: 11-21-2023 Annual PCP Team [employer] harriet Disease Visit Annual PCP Team Chronic Disease Visit [facility] Start: 11-21-2023 BP Controlled (<130/80) BP Controlle d (<130/80) [facility] Start: 11-08-2023 End: 11-08-2023 Patient encounter procedure 11/08/2023 10:00 AM EDT Office Visit [facility] [address] [place] [phone] Patrice Edwards Jr., MD [address] [place] [place], [place] [phone] follow up, CT and [facility] prior [facility] Comment on above: follow up, CT and [facility] prior Start: 11-06-2023 End: 11-06-2023 Patient encounter procedure 11/06/2023 4:00 PM EDT Office Visit Urology [address] [place] [address] Paulino Turner PA-C [address] [place] [address] Elevated PSA [R97.20] Urology Comment on above: Elevated PSA [R97.20 ] Start: 11-01-2023 End: 11-01-2023 Patient encounter procedure 11/01/2023 11:00 AM EDT Office Visit Orthopaedics [address] [address] Ida Carlton MD [address] [address] R/S from 10/15 Orthopaedics Comment on above: R/S from 10/15 Start: 10-30-2023 End: 10-30-2023 Patient encounter procedure 10/30/2023 11:40 AM EDT Appointment Cat Scan [address] [place] [address] Kidney stone [N20.0]; Flank pain [R10.9] Cat Scan Comment on above: Kidney stone [N20.0] ; Flank pain [R10.9] Start: 10-21-2023 Covid-19 Vaccine ( season) Covid-19 Vaccine ( season) [facility] Start: 10-21-2023 Covid-19 Vaccine ( season) Covid-19 Vaccine ( season) [facility] Start: 10-21-2023 Influenza vaccination [facility] Start: 10-16-2023 End: 10-16-2023 Patient encounter procedure 10/16/2023 11:20 AM EDT Office Visit Orthopaedics [address] [address] Ida Carlton MD [address] [id number] Bilateral hip pain [M25.551, M25.552] Orthopaedics Comment on above: Bilateral hip pain [ M25.551, M25.552] Start: 10-15-2023 End: 10-15-2023 Patient encounter procedure 10/15/2023 10:00 AM EDT Appointment Radiology [address] [place] [address] Flank pain [R10.9]; Dark urine [R82.998] Radiology Comment on above: Flank pain [R10.9]; Dark urine [R82.998] Start: 09-29-2023 DIABETES SCREEN DIABETES SCREEN [facility] Start: 09-29-2023 Diabetes Screening Diabetes Screenin g [facility] Start: 02-19-2023 Advance Directive Discussion Advance Directive Discussion [facility] Start: 02-19-2023 Behavioral Health Screening Behavioral Health Screening [facility] Start: 02-19-2023 Depression Assessment Depression Ass essment [facility] Start: 2022 Advance Directive Discussion Advance Directive Discussion [facility] Start: 2022 Pneumococcal Vaccine : 65+ (1 - PCV) Pneumococcal Vaccine: 65+ (1 - PCV) [facility] Start: 2022 Pneumococcal Vaccine : 65+ (1 of 1 - PCV) Pneumococcal Vaccine: 65+ (1 of 1 - PCV) [facility] Start: 11-20-2022 End: 01-20-2023 Comprehensive metabolic 2000 panel - Serum or Plasma COMP METABOLIC PANEL Lab Routine Medicare annual wellness visit, initial Expected: 11/20/2022, Expires: 01/20/2023 [facility] Work Phone: Comment on above: Expected: 11/20/2022 , Expires: 01/20/2023 Start: 11-20-2022 End: 01-20-2023 Lipid 1996 panel - Serum or Plasma LIPID PANEL BASIC Lab Routine Hyperlipidemia with target LDL less than 100 Expected: 11/20/2022, Expires: 01/20/2023 [facility] Work Phone: Comment on above: Expected: 11/20/2022 , Expires: 01/20/2023 Start: 11-20-2022 End: 01-20-2023 Prostate Specific Ag Free [Mass/volume] in Serum or Plasma PSA FREE Lab Routine Elevated PSA Expected: 11/20/2022, Expires: 01/20/2023 [facility] Work Phone: Comment on above: Expected: 11/20/2022 , Expires: 01/20/2023 Start: 10-20-2022 Covid-19 Vaccine () Covid-19 Vaccine () [facility] Start: 10-20-2022 Influenza vaccination Influenza Vacc ine (#1) [facility] Start: 09-22-2022 Adult depression screening assessment DEPRESSION SCREENING [facility] Start: 09-22-2022 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 ANNUAL PCP TEAM CHRONIC DISEASE VISIT [facility] Start: 09-22-2022 BP CONTROLLED (<130/80) BP CONTROLLE D (<130/80) [facility] Start: 01-22-2022 COVID-19 VACCINE (4 - Booster for Pfizer series) COVID-19 VACCINE (4 - Booster for Pfizer series) [facility] Start: 11-17-2021 COVID-19 VACCINE (4 - Booster for Pfizer series) COVID-19 VACCINE (4 - Booster for Pfizer series) [facility] Start: 11-17-2021 Covid-19 Vaccine (4 - Pfizer series) Covid-19 Vaccine (4 - Pfizer series) [facility] Start: 10-20-2021 Influenza vaccination INFLUENZA (#1) [facility] Start: 10-05-2021 COLORECTAL CANCER SCREENING COLORECTAL CANCER SCREENING [facility] Start: 10-05-2021 FECAL OCCULT BLOOD FECAL OCCULT BLOO D [facility] Start: 10-05-2021 Screening for malign ant neoplasm of colon Fecal Occult Blood [facility] Start: 09-22-2021 End: 11-22-2021 Comprehensive metabolic 2000 panel - Serum or Plasma COMP METABOLIC PANEL Lab Routine Nonintractable headache, unspecified chronicity pattern, unspecified headache type Expected: 09/22/2021, Expires: 11/22/2021 [facility] Work Phone: Comment on above: Expected: 09/22/2021 , Expires: 11/22/2021 Start: 09-22-2021 End: 11-22-2021 Hemoglobin A1c in Blood HGB A1C Lab Routine Screening for diabetes mellitus Expected: 09/22/2021, Expires: 11/22/2021 [facility] Work Phone: Comment on above: Expected: 09/22/2021 , Expires: 11/22/2021 Start: 09-22-2021 End: 11-22-2021 Lipid 1996 panel - Serum or Plasma LIPID PANEL BASIC Lab Routine Screening cholesterol level Expected: 09/22/2021, Expires: 11/22/2021 [facility] Work Phone: Comment on above: Expected: 09/22/2021 , Expires: 11/22/2021 Start: 09-22-2021 End: 11-22-2021 Prostate Specific Ag Free [Mass/volume] in Serum or Plasma PSA FREE Lab Routine Elevated PSA Expected: 09/22/2021, Expires: 11/22/2021 [facility] Work Phone: Comment on above: Expected: 09/22/2021 , Expires: 11/22/2021 Start: 02-19-2021 DEPRESSION ASSESSMENT DEPRESSION ASS ESSMENT [facility] Start: 2017 RSV Vaccine (1 - 1-d ose 60+ series) RSV Vaccine (1 - 1-dose 60+ series) [facility] Start: 2017 RSV Vaccine (1 - Ris k 60-74 years 1-dose series) RSV Vaccine (1 - Risk 60-74 years 1-dose series) [facility] Start: 07-18-2013 Provider Instruction s for Treatment [...] feces 1-3 FECAL OCCULT- Tubes sent home (13188) [facility] Work Phone: Start: 01-08-2012 [...] feces 1-3 FECAL OCCULT- Tubes sent home (54169) [facility] Work Phone: Start: 04-05-2011 [...] 09-16-2010 Antibody giardia lamblia GIARDIA LAMBLIA ANTIBODY (86347) [facility] Work Phone: Start: 09-16-2010 Cul bact stool aerob ic isol salmonella&shigell CHRISTOPHER CULTURE-STOOL (72004) [facility] Work Phone: Start: 09-16-2010 Leukocyte assmt feca l qual/semiquantitative LEUKOCYTE COUNT, FECAL (03981) [facility] Work Phone: Start: 09-16-2010 Culture bacterial an y source anaerobic iso&id C-DIFFICILE, STOOL (87506) [facility] Work Phone: Start: 09-08-2010 Provider Instruction s for Treatment Follow up in 1 week with KF or [facility] for removal of keratosis of head, leg, and back [facility] Work Phone: Start: 08-15-2010 Ova&parasites direct smears concentration & id OVA & PARASITE DIR SMEAR ([id number]) [facility] Work Phone: Start: 08-15-2010 Culture bacterial an y source anaerobic iso&id C-DIFFICILE, STOOL (59613) [facility] Work Phone: Start: 08-15-2010 Provider Instruction s for Treatment [facility] Work Phone: Start: 08-03-2010 Provider Instruction s for Treatment [facility] Work Phone: Start: 08-03-2010 Blood occult peroxid ase actv qual feces 1 deter OCCULT BLOOD FECES SCREEN (23405) [facility] Work Phone: Start: 08-03-2010 Ova&parasites direct smears concentration & id OVA & PARASITE DIR SMEAR (42776) [facility] Work Phone: Start: 08-03-2010 Cul bact stool aerob ic isol salmonella&shigell CHRISTOPHER CULTURE-STOOL (33330) [facility] Work Phone: Start: 08-03-2010 Culture bacterial an y source anaerobic iso&id C-DIFFICILE, STOOL (30876) [facility] Work Phone: Start: 08-03-2010 Leukocyte assmt feca l qual/semiquantitative LEUKOCYTE COUNT, FECAL (65392) [facility] Work Phone: Start: 05-30-2010 Provider Instruction s for Treatment [facility] Work Phone: Start: 01-31-2010 Provider Instruction s for Treatment [facility] Work Phone: Start: 10-13-2009 Provider Instruction s for Treatment [facility] Work Phone: Start: 06-09-2009 Lipid panel LIPID PANEL (47623) [facility] Work Phone: Comment on above: do before next visit Start: 06-09-2009 Provider Instruction s for Treatment [facility] Work Phone: Start: 01-25-2009 Lipid panel LIPID PANEL (12432) [facility] Work Phone: Comment on above: do in 4 months Start: 01-25-2009 Provider Instruction s for Treatment [facility] Work Phone: Start: 01-18-2009 Lipid panel LIPID PANEL (00648) [facility] Work Phone: Start: 01-18-2009 Provider Instruction s for Treatment [facility] Work Phone: Start: 2002 COLOGUARD (FIT-DNA) COLOGUARD (FIT-D NA) [facility] Start: 2002 Colonoscopy COLONOSCOPY [facility] Start: [address] COLONOGRAPHY [facility] Start: 2002 Screening for malign ant neoplasm of colon [facility] Start: 2002 SIGMOIDOSCOPY SIGMOIDOSCOPY [facility] Start: 12-05-1975 Anxiety Screening Anxiety Screening [facility] Start: 12-05-1975 Depression Screening Depression Scre ening [facility] Bacteria identified in Urine by Culture URINE CULTURE Microbiology Routine History of flank pain Dark urine 10/02/2023 10:16 AM EDT [facility] COLOGUARD COLOGUARD Lab Ro utine Screening for colon cancer Ordered: 09/22/2021 [facility] Work Phone: Comment on above: Ordered: 09/22/2021 End: 11-23-2024 CT Abdomen and Pelvis WO contrast CT FLANK WO IVCON Radiology Routine Kidney stone Flank pain 1 Occurrences starting 10/25/2023 until 11/23/2024 [facility] Work Phone: Comment on above: 1 Occurrences starti ng 10/25/2023 until 11/23/2024 End: 11-23-2024 MR Prostate WO and W contrast IV MRI PROSTATE WO/W IVCON Radiology Routine Encounter for observation for other suspected diseases and conditions ruled out 1 Occurrences starting 10/25/2023 until 11/23/2024 [facility] Comment on above: 1 Occurrences starti ng 10/25/2023 until 11/23/2024 End: 12-20-2023 Radex spine cervical 4 or 5 views XR CERV OTHER 4V AP/LAT/OBL Radiology Routine Chronic neck pain 1 Occurrences starting 11/20/2022 until 12/20/2023 [facility] Work Phone: Comment on above: 1 Occurrences starti ng 11/20/2022 until 12/20/2023 Radex spine cervical 4 or 5 views XR CERV OTHER 4V AP/LAT/OBL Radiology Routine Chronic neck pain 11/20/2022 11:21 AM T [facility] Work Phone: Urinalysis complete panel - Urine URINALYSIS, WITH MICROSCOPIC Lab Routine History of flank pain Dark urine 10/02/2023 10:16 AM [facility] End: 02-14-2024 US ELBOW RIGHT US ELBOW RIGHT Radiology Routine Numbness of hand 1 Occurrences starting 01/15/2023 until 02/14/2024 [facility] Work Phone: Comment on above: 1 Occurrences starti ng 01/15/2023 until 02/14/2024 End: 10-31-2024 US Kidney - bilateral and Urinary bladder US KIDNEY/BLADDER Radiology Routine History of flank pain Dark urine 1 Occurrences starting 10/02/2023 until 10/31/2024 [facility] Work Phone: Comment on above: 1 Occurrences starti ng 10/02/2023 until 10/31/2024 US Kidney - bilatera l and Urinary bladder US KIDNEY/BLADDER Radiology Routine History of flank pain Dark urine 10/15/2023 10:25 AM T [facility] Work Phone: End: 02-14-2024 Us lmtd joint/oth nonvasc xtr strux r-t w/img US ELBOW LEFT Radiology Routine Numbness of hand 1 Occurrences starting 01/15/2023 until 02/14/2024 [facility] Work Phone: Comment on above: 1 Occurrences starti ng 01/15/2023 until 02/14/2024 End: 11-23-2024 XR Abdomen Supine and Upright XR ABDOMEN 1V SUPINE Radiology Routine Kidney stone Flank pain 1 Occurrences starting 10/25/2023 until 11/23/2024 [facility] Comment on above: 1 Occurrences starti ng 10/25/2023 until 11/23/2024 XR Abdomen Supine an d Upright XR ABDOMEN 1V SUPINE Radiology Routine Kidney stone Flank pain 10/30/2023 11:35 AM EDT [facility] Work Phone: End: 10-11-2024 XR HIP BILATERAL 5V PEL/AP/LAT EACH HIP XR HIP BILATERAL 5V PEL/AP/LAT EACH HIP Radiology Routine Bilateral hip pain 1 Occurrences starting 09/12/2023 until 10/11/2024 [facility] Comment on above: 1 Occurrences starti ng 09/12/2023 until 10/11/2024 XR HIP BILATERAL 5V PEL/AP/LAT EACH HIP XR HIP BILATERAL 5V PEL/AP/LAT EACH HIP Radiology Routine Bilateral hip pain 09/12/2023 1:56 PM EDT [facility] End: 10-11-2024 XR Knee - bilateral 4 Views XR KNEE GENERAL 4V AP BOTH/PA BOTH/LAT/MERC BILATERAL Radiology Routine Pain in both knees, unspecified chronicity 1 Occurrences starting 09/12/2023 until 10/11/2024 [facility] Work Phone: Comment on above: 1 Occurrences starti ng 09/12/2023 until 10/11/2024 XR Knee - bilateral 4 Views XR KNEE GENERAL 4V AP BOTH/PA BOTH/LAT/MERC BILATERAL Radiology Routine Pain in both knees, unspecified chronicity 09/12/2023 1:56 PM EDT [facility] End: 12-20-2023 XR SHOULDER GENERAL 3V OR MORE AP/TRUE AP/OTHER RIGHT XR SHOULDER GENERAL 3V OR MORE AP/TRUE AP/OTHER RIGHT Radiology Routine Acute pain of right shoulder 1 Occurrences starting 11/20/2022 until 12/20/2023 [facility] Work Phone: Comment on above: 1 Occurrences starti ng 11/20/2022 until 12/20/2023 XR SHOULDER GENERAL 3V OR MORE AP/TRUE AP/OTHER RIGHT XR SHOULDER GENERAL 3V OR MORE AP/TRUE AP/OTHER RIGHT Radiology Routine Acute pain of right shoulder 11/20/2022 11:21 AM EDT [facility] Work Phone: [facility] Work [...] Phone: [facility] Work Phone: [facility] Immunizations Immunization Date Immunization Notes Care Provider Fa avera [facility] 09-22-2021 COVID-19 vaccine, ag e 12+ yr (PFIZER-BIONTTowerJazz - [facility]) Justine Leary HYDRAULIC AUTO JACK MECHANIC.ASSOCIATE LOAN OFFICER Work Phone: [facility] 11-23-2020 influenza, injectabl e, quadrivalent, contains preservative Justine Leary HYDRAULIC AUTO JACK MECHANIC.ASSOCIATE LOAN OFFICER Work Phone: [facility] Work Phone: 11-23-2020 zoster vaccine recombinant Justine Samuelhof HYDRAULIC AUTO JACK MECHANIC.ASSOCIATE LOAN OFFICER Work Phone: [facility] Work Phone: 11-23-2020 influenza virus vaccine, unspecified formulation Justine Leary HYDRAULIC AUTO JACK MECHANIC.ASSOCIATE LOAN OFFICER Work Phone: [facility] 09-23-2020 zoster vaccine recombinant Justine Tannhof HYDRAULIC AUTO JACK MECHANIC.ASSOCIATE LOAN OFFICER Work Phone: [facility] 11-05-2019 influenza, injectabl e, quadrivalent, contains preservative Justine Tannhof HYDRAULIC AUTO JACK MECHANIC.ASSOCIATE LOAN OFFICER Work Phone: [facility] 11-21-2018 influenza, seasonal, injectable Justine Tannhof HYDRAULIC AUTO JACK MECHANIC.ASSOCIATE LOAN OFFICER Work Phone: [facility] 06-27-2017 tetanus toxoid, redu jose ramon diphtheria toxoid, and acellular pertussis vaccine, adsorbed Justine Lizziehof HYDRAULIC AUTO JACK MECHANIC.ASSOCIATE LOAN OFFICER Work Phone: [facility] 11-21-2016 influenza, seasonal, injectable Justine Tannhof HYDRAULIC AUTO JACK MECHANIC.ASSOCIATE LOAN OFFICER Work Phone: [facility] 12-01-2015 influenza, seasonal, injectable Justine Tannhof HYDRAULIC AUTO JACK MECHANIC.ASSOCIATE LOAN OFFICER Work Phone: [facility] 09-01-2008 tetanus and diphther ia toxoids, adsorbed, preservative free, for adult use (2 Lf of tetanus toxoid and 2 Lf of diphtheria toxoid) Justine Samuelhof HYDRAULIC AUTO JACK MECHANIC.ASSOCIATE LOAN OFFICER Work Phone: [facility] Payers Date Payer Category Payer Medicare MEDICARE MEDICAR E A AND B [id number] 2022-Present [phone] [place] [address] Medicare [id number] 2022 Private Health Insurance [facility] AARP SUPPLEMENT [id number] 2022-Present [phone] [address] [place] [address] Indemnity [id number] 2022 Medicare [id number] 2022 Unknown [id number] 2021 Unknown 2021 Unknown DAISY SEYMOUR O DAVION [id number] 2021-Present [phone] [address] [place] [address] [facility] [id number] Social History Date Type Detail Facility Start: 11-16-2022 End: 10-25-2023 Alcohol Use Alcohol Use [facility] Work Phone: Comment on above: Occasional alcohol u se 1 tea QD , heterosexua l Electrition Tobacco use: Tobacco use: [facility] Work Phone: Comment on above: 05/04/11 Start: 06-01-2017 End: 11-20-2022 Tobacco smoking status NHIS Never smoked tobacco [facility] Start: 09-22-2021 End: 12-03-2023 Alcohol intake Current drinker of alcohol (finding) [facility] Start: 11-04-2019 History SDOH Alcohol Frequency 3 [facility] Start: 11-04-2019 End: 04-19-2021 History SDOH Alcohol Std Drinks 1 [facility] Start: 11-04-2019 End: 04-19-2021 History SDOH Alcohol Binge 2 [facility] Start: 12-03-2019 History SDOH Social Connections Phone 98 [facility] Start: 11-04-2019 History SDOH Social Connections Living 4 [facility] Start: 12-03-2019 History SDOH Physica l Activity DPW 6 [facility] Start: 11-03-2019 Education 12 [facility] Start: 1955 Sex Assigned At Male [facility] Start: 09-12-2021 End: 09-22-2021 Exposure to SARS-CoV-2 (event) Not sure [facility] Start: 06-01-2017 End: 11-20-2022 Tobacco use and exposure Smokeless tobacco non-user [facility] Start: 11-16-2022 End: 10-25-2023 [facility] [employer] Has the [employer], [employer], or water [employer] threatened to shut off services in your home in past 12Mo No [facility] Frequency of Social Gatherings with Friends and Family Not on file [facility] Are you now , , , , never or living with a partner? [facility] How often to you hav e a drink containing alcohol? 2-4 times a month [facility] How many standard drinks containing alcohol do you have on a typical day? 1 or 2 [facility] How often do you hav e 6 or more drinks on 1 occasion? Never [facility] Do you feel stress - tense, restless, nervous, or anxious, or unable to sleep at night because your mind is troubled all the time - these days [OSQ] Not at all [facility] (I/We) worried wheth er (my/our) food would run out before (I/we) got money to buy more. Never true [facility] Start: 11-03-2019 Gender identity Identifies as male gender (finding) [facility] Start: 11-03-2019 Sexual orientation Choose not to disclose [facility] Clinical Notes 09-22-2021 to 12-07-2023 Telephone Encounter - Steven Lange RN - 12/07/2023 1:03 PM EDTTelephone Encounter - Steven Lange RN - 12/07/2023 1:03 PM EDTTelephone Encounter - Sue Griffin - 12/03/2023 2:01 PM EDT Note Date & Type Note Facility 12-07-2023 Telephone encounter Note Spoke with pts spouse and informed of the message below. Steven Lange RN [facility] 12-07-2023 Miscellaneous Notes Spoke with pts spouse and informed of the message below. Steven Lange RN Called patient's and left VM to call office back. Suzanne Portillo RN Sent to pharmacy Patient's is calling regarding patient is still having blood in urine with small stones, pain with pain level now 3-4/10 up to 10/10 at times, and constipation. Denies fevers, chills. requesting additional pain medication/percocet, patient only has 1 pill left and recommend medication for constipation. Verified pharmacy. Informed that a message will be sent to provider. Suzanne Portillo RN documented in this encounter [facility] 12-07-2023 Telephone encounter Note Called patient's and left VM to call office back. Suzanne Portillo RN T [facility] Work Phone: 12-07-2023 Telephone encounter Note Sent to pharmacy [facility] 12-07-2023 Telephone encounter Note Patient's is calling regarding patient is still having blood in urine with small stones, pain with pain level now 3-4/10 up to 10/10 at times, and constipation. Denies fevers, chills. requesting additional pain medication/percocet, patient only has 1 pill left and recommend medication for constipation. Verified pharmacy. Informed that a message will be sent to provider. Suzanne Portillo RN [facility] 12-03-2023 Telephone encounter Note Spoke to patient Patient is scheduled January 09, 2024 at 2pm, [facility], kub prior Patient agrees and understands Thank amy Rogers [facility] 12-03-2023 Miscellaneous Notes Spoke to patient Patient is scheduled January 09, 2024 at 2pm, [place] location, kub prior Patient agrees and understands Thank you Sue [facility] or 12/03/23 Fu with me 4 weeks Kub prior ordered documented in this encounter [facility] 12-03-2023 Note HNO ID: [id number] Author: SAMINA MCKEON APRN.[employer] WORK[employer] Service: Anesthesiology Author Type: Nurse Reel Worker Type: Anesthesia Procedure Notes Filed: 12/03/2023 10:28 Note Text: ANESTHESIOLOGY PROCEDURE NOTE Airway General Information Procedure Start Time/Medication Administration: 12/03/2023 10:22 AM Procedure End Time: 12/03/2023 10:22 AM Patient location during procedure: OR Timeout Performed Pre-procedure: timeout performed Consent Obtained: Yes Patient identity confirmed: arm band Staffing [employer] WORKER: Samina Mckeon APRN.[employer] WORK[employer] Performed by: [employer] WORK[employer] Indications and Patient Condition Indications for airway management: anesthesia Preoxygenated: yes anesthesia circuit Patient position: sniffing Method: asleep Final Airway Details Final airway type: supraglottic airway Number of attempts at approach: 1 Final Supraglottic Airway: i-gel Size 5 Seal Adequate: yes SIGNATURE: Samina Mckeon APRN.[employer] WORK[employer] PATIENT NAME: Bonnie Martinez DATE: December 03, 2023 TIME: 10:28 AM CSN: [id number] [facility] 12-03-2023 Telephone encounter Note [facility] or 12/03/23 Fu with me 4 weeks Kub prior ordered [facility] 11-13-2023 Telephone encounter Note Spoke with pt's and surgery planned for 12/03/23. Joyce Marley [facility] 09-24-2024 Miscellaneous Notes Spoke with pt's and surgery planned for 12/03/23. Joyce Marley documented in this encounter [facility] 11-13-2023 Telephone encounter Note Pt's notified to check pharmacy. Joyce Marley [facility] 11-13-2023 Miscellaneous Notes Pt's notified to check pharmacy. Joyce Marley sent Spoke with pt's and surgery planned for 12/03/[address] Edwards. Pt having bouts of nausea and requests a prescription gets sent to his pharmacy- [facility] in [place]. Please advise. Joyce Villavicencio Pt called looking to schedule surgery quickly due to pt discomfort. stated that Pt is to have ESWL scheduled. Tahira garnica MA documented in this encounter [facility] 11-13-2023 Telephone encounter Note sent [facility] 11-13-2023 Telephone encounter Note Spoke with pt's and surgery planned for 12/03/[address] Edwards. Pt having bouts of nausea and requests a prescription gets sent to his pharmacy- [facility] in [place]. Please advise. Joyce Villavicencio [facility] 11-13-2023 Telephone encounter Note Pt called looking to schedule surgery quickly due to pt discomfort. stated that Pt is to have ESWL scheduled. Tahira garnica MA [facility] 11-08-2023 Note HNO ID: [id number] Author: PATRICE EDWARDS JR, MD Service: ? [...] (no units) Date Value 10/02/2023 Negative Specific [place], Ur (no units) Date Value 10/02/2023 1.013 [...] to proceed. Patrice Edwards Jr, MD 11/08/2023 [facility] 11-08-2023 History of Present illness Narrative [...] do laser litho or pcnl. [facility] LAB: Creatinine Date Value Ref Range Status 10/02/2023 1.25 (H) 0.73 - 1.22 mg/dL Final PSA (ng/mL) Date Value 10/02/2023 7.55 11/21/2022 6.61 PSA Screening (ng/mL) Date Value 11/06/2019 4.56 Glucose, Urine (no units) Date Value 10/02/2023 Negative Bilirubin, Urine (no units) Date Value 10/02/2023 Negative Ketones, Urine (no units) Date Value 10/02/2023 Negative Specific [place], Ur (no units) Date Value 10/02/2023 1.013 [...] Jr, MD 11/08/2023 documented in this encounter [facility] 11-01-2023 Note HNO ID: [id number] Author: IDA CARLTON MD Service: ? Author [...] the date of the service which included aveg-rf-qkhq patient care, performing a medically appropriate examination, counseling and educating the patient/family/caregiver, independently interpreting results (not separately reported), and communicating results to the patient/family/caregiver. Ida Carlton MD Orthopaedic Surgery [facility] 11-01-2023 History of Present illness Narrative Orthopaedic [...] the date of the service which included ptmn-kq-bdhu patient care, performing a medically appropriate examination, counseling and educating the patient/family/caregiver, independently interpreting results (not separately reported), and communicating results to the patient/family/caregiver. Ida Carlton MD Orthopaedic Surgery documented in this encounter [facility] 10-30-2023 History of Present illness Narrative Radiology [...] PATIENT PRESENTS WITH AN IMPLANTABLE OR ATTACHED AS400 CONSULTANT: No RADIOLOGY DEPARTMENT: CT; Exam(s) Completed: Flank Study PERIPHERAL IV DATA: Not applicable SIGNED BY: RT Trupti(Gold) October 30, 2023 1:55 PM documented in this encounter [facility] 10-30-2023 Note HNO ID: [id number] Author: MYRNA RAPP RT (R) Service: ? Author Type: Front Office Director Type: Progress Notes Filed: 10/30/2023 13:55 Note Text: Radiology Service Progress Note PATIENT NAME: Bonnie Martniez DATE OF SERVICE: October 30, 2023 TIME: [...] PATIENT PRESENTS WITH AN IMPLANTABLE OR ATTACHED AS400 CONSULTANT: No RADIOLOGY DEPARTMENT: CT; Exam(s) Completed: Flank Study PERIPHERAL IV DATA: Not applicable SIGNED BY: RT Trupti(Gold) October 30, 2023 1:55 PM [facility] 10-30-2023 History of Present illness Narrative Radiology [...] PATIENT PRESENTS WITH AN IMPLANTABLE OR ATTACHED AS400 CONSULTANT: No RADIOLOGY DEPARTMENT: General X-ray: Exam(s) Completed: Abdomen X-Ray: Abdomen PERIPHERAL IV DATA: Not applicable SIGNED BY: RT Huyen(Gold) October 30, 2023 11:24 AM documented in this encounter [facility] 10-30-2023 Note HNO ID: [id number] Author: JONNIE JORDAN RT(R) Service: ? Author Type: Front Office Director Type: Progress Notes Filed: 10/30/2023 11:35 Note [...] PATIENT PRESENTS WITH AN IMPLANTABLE OR ATTACHED AS400 CONSULTANT: No RADIOLOGY DEPARTMENT: General X-ray: Exam(s) Completed: Abdomen X-Ray: Abdomen PERIPHERAL IV DATA: Not applicable SIGNED BY: RT Huyen(Gold) October 30, 2023 11:24 AM [facility] 10-26-2023 Note HNO ID: [id number] Author: PATRICE EDWARDS JR, MD Service: ? [...] (no units) Date Value 10/02/2023 Negative Specific [place], Ur (no units) Date Value 10/02/2023 1.013 [...] after Mri prostate Patrice Edwards Jr, MD [facility] 10-26-2023 History of Present illness Narrative [...] (no units) Date Value 10/02/2023 Negative Specific [place], Ur (no units) Date Value 10/02/2023 1.013 [...] PAST MEDICAL HISTORY OF Comment: DDD, 08/2008: PM - PAST MEDICAL HISTORY OF Comment: fracture [...] Edwards Jr, MD documented in this encounter [facility] 10-18-2023 Telephone encounter Note Patient returned call and given provider's message below and patient verbalized understanding. Edouard Vivas RN [facility] 10-18-2023 Miscellaneous Notes Patient returned call and [...] has any questions. Thank you. Justine Leary APRN.ASSOCIATE LOAN OFFICER documented in this encounter [facility] 10-18-2023 Telephone encounter Note TC to pt. LM to call office, ask for triage nurse to get results. Jesse Gonzalez LPN [facility] 10-18-2023 Telephone encounter Note See phone note Justine Leary APRN.ASSOCIATE LOAN OFFICER [facility] 10-18-2023 Miscellaneous Notes See phone note Justine Leray APRN.CNP See [place] message documented in this encounter [facility] 10-18-2023 Telephone encounter Note Can you please [...] any questions. Thank you. Justine Leary APRN.CNP [facility] 10-18-2023 Telephone encounter Note See [place] message [facility] 10-15-2023 History of Present illness Narrative Radiology [...] PATIENT PRESENTS WITH AN IMPLANTABLE OR ATTACHED AS400 CONSULTANT: No RADIOLOGY DEPARTMENT: Ultrasound PERIPHERAL IV DATA: Not applicable SIGNED BY: Bel Huffman RDMS RVT October 15, 2023 2:48 PM documented in this encounter [facility] 10-15-2023 Note HNO ID: [id number] Author: BEL HUFFMAN RDMS Service: ? Author Type: Clinical Lab Assistant Type: Progress Notes Filed: 10/15/2023 14:49 Note [...] PATIENT PRESENTS WITH AN IMPLANTABLE OR ATTACHED AS400 CONSULTANT: No RADIOLOGY DEPARTMENT: Ultrasound PERIPHERAL IV DATA: Not applicable SIGNED BY: Bel Huffman RDMS RVT October 15, 2023 2:48 PM [facility] 10-03-2023 Telephone encounter Note Consult has been placed. Justine Leary APRN.EUSEBIO [facility] 10-03-2023 Miscellaneous Notes Consult has been placed. Justine Leary APRN.ASSOCIATE LOAN OFFICER Patient notified of results, verbalizes understanding of [...] Justine Leary APRN.CNP documented in this encounter [facility] 10-03-2023 Telephone encounter Note Patient notified of results, verbalizes understanding of instructions. Pt wants a consult to Urology. Please place. Jesse Gonzalez LPN [facility] 10-03-2023 Telephone encounter Note Can you please [...] any questions. Thank you. Justine Leary APRN.CNP [facility] 10-02-2023 Instructions Justine Leary APRN.CNP - 10/02/2023 10:08 AM EDT Get labs and ultrasound completed Urine will be sent out for further testing Stay well hydrated Worsening symptoms contact the office. Follow up pending test results or sooner as needed. documented in this encounter [facility] 08-13-2024 History of Present illness Narrative This is [...] OF Comment: right 4th and 5th injury-[facility] 1985: PAST SURGICAL HISTORY OF; Right Comment: [...] discussed and patient voices understanding. Justine Leary APRN.ASSOCIATE LOAN OFFICER This note was partially generated using Digital Theatre recognition system. Note was reviewed for accuracy. There may be minor misspellings or grammar miscues with Dragon voice recognition. documented in this encounter [facility] 10-02-2023 Note HNO ID: [id number] Author: JUSTINE LEARY APRN.EUSEBIO Service: ? Author [...] OF Comment: right 4th and 5th injury-[facility] 1984: PAST SURGICAL HISTORY OF; Right Comment: [...] APRN.CNP This note was partially generated using Accelerated IO voice recognition system. Note was reviewed for accuracy. There may be minor misspellings or grammar miscues with WellTekon voice recognition. [facility] 09-17-2023 Telephone encounter Note Patient notified of results, verbalizes understanding of instructions. Jesse Gonzalez LPN [facility] 09-17-2023 Miscellaneous Notes Patient notified of results, [...] Justine Leary APRN.CNP documented in this encounter [facility] 09-17-2023 Telephone encounter Note Can you please [...] any questions. Thank you. Justine Leary APRN.EUSEBIO [facility] 09-14-2023 Telephone encounter Note Patient notified of results, verbalizes understanding of instructions. Jesse Gonzalez LPN [facility] 09-14-2023 Miscellaneous Notes Patient notified of results, verbalizes understanding of instructions. Jesse Gonzalez LPN Can you please call the patient and let him know that I reviewed his knee x-ray results. 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 This is usually seen with children but can affect adults as well. We treat this with RICE therapy, rest, ice, compression, elevation. NSAIDs are used to reduce inflammation, he may use bteb-bdi-wijbpgb or consider taking a once a day such as meloxicam. Physical therapy may be helpful to work on leg muscles. If no improvement I recommend a consult with orthopedics. Please let me know what he prefers regarding treatment. Thank you. Hip xray results are still pending Justine Leary APRN.EUSEBIO documented in this encounter [facility] 09-14-2023 Telephone encounter Note Can you please call the patient and let him know that I reviewed his knee x-ray results. 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 This is usually seen with children but can affect adults as well. We treat this with RICE therapy, rest, ice, compression, elevation. NSAIDs are used to reduce inflammation, he may use vokr-huj-wppqybl or consider taking a once a day such as meloxicam. Physical therapy may be helpful to work on leg muscles. If no improvement I recommend a consult with orthopedics. Please let me know what he prefers regarding treatment. Thank you. Hip xray results are still pending Justine Leary APRN.ASSOCIATE LOAN OFFICER [facility] 09-12-2023 History of Present illness Narrative Radiology Service Progress Note PATIENT NAME: Bnonie Martinez DATE OF SERVICE: September 12, 2023 [...] PATIENT PRESENTS WITH AN IMPLANTABLE OR ATTACHED AS400 CONSULTANT: No RADIOLOGY DEPARTMENT: General X-ray: Exam(s) Completed: Pelvis X-Ray: Pelvis with Hip Bilateral Lower Extremity X-Ray(s): Knee, AP / Lat / Tunne / Merchant Bilateral and Wt. Bearing PERIPHERAL IV DATA: Not applicable SIGNED BY: JULIET Marx) September 12, 2023 1:35 PM documented in this encounter [facility] 09-12-2023 Note HNO ID: [id number] Author: HELEN GARDNER RT(R) Service: Radiology Author [...] PATIENT PRESENTS WITH AN IMPLANTABLE OR ATTACHED AS400 CONSULTANT: No RADIOLOGY DEPARTMENT: General X-ray: Exam(s) Completed: Pelvis X-Ray: Pelvis with Hip Bilateral Lower Extremity X-Ray(s): Knee, AP / Lat / Tunne / Merchant Bilateral and Wt. 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 PAST SURGICAL HISTORY OF Right 1985 right [...] APRN.EUSEBIO This note was partially generated using Accelerated IO voice recognition system. Note was reviewed for accuracy. There may be minor misspellings or grammar miscues with Accelerated IO voice recognition. documented in this encounter [facility] 09-12-2023 Note HNO ID: [id number] Author: JUSTINE LEARY APRN.EUSEBIO Service: ? 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 PAST SURGICAL HISTORY OF Right 1985 right [...] distal aspect of the patella. Similar to [place]ensing[place]-Schlatter's disease. Nontender with palpation, no edema noted. [...] discussed and patient voices understanding. Justine Leary APRN.ASSOCIATE LOAN OFFICER This note was partially generated using Accelerated IO voice recognition system. Note was reviewed for accuracy. There may be minor misspellings or grammar miscues with Accelerated IO voice recognition. [facility] 06-08-2023 Note HNO ID: [id number] Author: NY GOLDSTEIN MA Service: ? Author Type: Microchip Specialist Type: Progress Notes Filed: 06/08/2023 09:19 Note Text: POPULATION HEALTH NAVIGATION OUTREACH Action/FYI Patient is on [employer] list for below and needs appointment to address: RSV Vaccine(1 - 1-dose 60+ series) Covid-19 Vaccine(2022-24 season) Pneumococcal Vaccine: 65+(1 of 1 - PCV) Advance Directive Discussion Behavioral Health Screening Hemoglobin A1C (%) Date Value 09/28/2020 5.6 Patient due for: Medicare Annual Wellness Visit - 11-20-22 Advance Directives Left message for patient to call back. Sent [employer]hart message. Reason for Outreach Care Gap/HCC or Scheduling Wellness Visits Care Gaps due: Medicare Annual Wellness Visit Advance Directives Patient Contacted: Unable or unnecessary to reach patient: Left message MyChart message sent HCC related Navigation Signature: Ny Goldstein MA June 08, 2023 7:09 AM [facility] 06-08-2023 History of Present illness Narrative POPULATION HEALTH NAVIGATION OUTREACH Action/I Patient is on [employer] list for below and needs appointment to address: RSV Vaccine(1 - 1-dose 60+ series) Covid-19 Vaccine( season) Pneumococcal Vaccine: 65+(1 of 1 - PCV) Advance Directive Discussion Behavioral Health Screening Hemoglobin A1C (%) Date Value 09/28/2020 5.6 Patient due for: Medicare Annual Wellness Visit - 11-20-22 Advance Directives Left message for patient to call back. Sent [employer]hart message. Reason for Outreach Care Gap/HCC or Scheduling Wellness Visits Care Gaps due: Medicare Annual Wellness Visit Advance Directives Patient Contacted: Unable or unnecessary to reach patient: Left message [employer] message sent HCC related Navigation Signature: Ny Goldstein MA June 08, 2023 7:09 AM documented in this encounter [facility] 06-08-2023 Note Patient Outreach (KALA TNAV) BONNIE MARTINEZ ([id number]) 1955 M Date Time Provider Department 06/08/23 NY GOLDSTEIN During your visit today, we recorded the following information about you: Ny Goldstein MA 06/08/2023 9:19 AM Signed POPULATION HEALTH NAVIGATION OUTREACH Action/FYI Patient is on [employer] list for below and needs appointment to address: RSV Vaccine(1 - 1-dose 60+ series) Covid-19 Vaccine( season) Pneumococcal Vaccine: 65+(1 of 1 - PCV) Advance Directive Discussion Behavioral Health Screening Hemoglobin A1C (%) Date Value 09/28/2020 5.6 Patient due for: Medicare Annual Wellness Visit - 11-20-22 Advance Directives Left message for patient to call back. Sent [place] message. Reason for Outreach Care Gap/HCC or Scheduling Wellness Visits Care Gaps due: Medicare Annual Wellness Visit Advance Directives Patient Contacted: Unable or unnecessary to reach patient: Left message [employer] message sent HCC related Navigation Signature: Ny Goldstein MA June 08, 2023 7:09 AM Allergies As of Date: 06/08/2023 Noted Allergy Reaction ERYTHROMYCIN BASE 09/21/2008 8 - GI Upset Date Reviewed: 01/15/2023 Reviewed by: Jasmina Reyes PA-C - Fully Assessed Reason for Visit: Population Health Navigation Outreach [3910] Cmt: maufait - AWV, Care gaps, HCC gap closure - [place] PCSA Prescriptions as of 06/08/2023 - predniSONE [...] Encounter Status:Closed by NY GOLDSTEIN on 06/08/23 [facility] 04-12-2023 History of Present illness Narrative Program_ID:[id number] Access Code: [email or web address] URL: [email or web address] Date: 04-12-2023 Prepared By: Bel Renee Program [...] 929 Session Stop Time : 1003 MILES Barillas, PT documented in this encounter [facility] 04-12-2023 Note HNO ID: [id number] Author: BEL RENEE PT Service: ? Author Type: Physical Therapist Type: Progress Notes Filed: 06/05/2023 08:44 Note Text: 06/05/2023 [facility] PHYSICAL THERAPY DISCONTINUANCE OF CARE Plan of Care Period: Start of Care Date: 04/04/23 Last Visit Date: 04/12/2023 Therapy Program: The following is a summary of the interventions provided for this episode of care; Therapeutic exercise and Self-intermediate management Assessment: Based on most recent visit, [...] Time (minutes): 33 Session Start Time : 30 Session Stop Time : 1003 MILES Barillas, PT [facility] 04-10-2023 History of Present illness Narrative Program_ID:[id number] Access Code: [email or web address] URL: [email or web address] Date: 04-10-2023 Prepared By: Bel Renee Program [...] at endrange 6: *Access Code: [email or web address] URL: [email or web address] Date: 04/10/2023 Prepared by: Bel Marie Exercises [...] and function . Patient education as noted. Self-Nursing Home Management: 1: pause median nerve glides 2: [...] Bel Renee PT documented in this encounter [facility] 04-10-2023 Note HNO ID: [id number] Author: BEL RENEE, PT Service: ? Author [...] at endrange 6: *Access Code: [email or web address] URL: [email or web address] Date: 04/10/2023 Prepared by: Bel Renee Exercises [...] and function . Patient education as noted. Self-Nursing Home Management: 1: pause median nerve glides 2: [...] Minutes: 20 Self-Care/Ho (more content not included)... [facility] 04-04-2023 Miscellaneous Notes Addended by: BEL RENEE on: 04/04/2023 10:25 AM Modules accepted: Orders documented in this encounter [facility] 04-04-2023 History of Present illness Narrative Program_ID:[id number] Access Code: [email or web address] URL: [email or web address] Date: 04-04-2023 Prepared By: Bel Renee Program Notes Exercises - Ulnar Nerve/Median Montverde- Low Level - 3-5 x daily - [...] of Care: created on 04/04/23 through 05/16/23 [place] in home exercise program. Patient will decrease [...] of Visits Planned: 12 Planned Treatment Interventions: Self-intermediate management (79279), Therapeutic activities (91471), Manual therapy (58229), Neuromuscular re-education (85092), Therapeutic exercise (59128) PLAN FOR NEXT VISIT: assess median nerve [...] provided TREATMENT: PT Treatment Interventions: Therapeutic Exercise, Self-Nursing Home Management Evaluation Therapeutic Exercise: 1: *Access Code: [email or web address] URL: [email or web address] Date: 04/04/2023 Prepared by: Bel Marie Exercises - Ulnar Nerve/Median Montverde- Low Level - 3-5 x daily - [...] and function . Patient education as noted. Self-Nursing Home Management: 1: postural awareness 2: median nerve [...] Bel Renee PT documented in this encounter [facility] 04-04-2023 Note HNO ID: [id number] Author: BEL RENEE PT Service: ? Author [...] of Care: created on 04/04/23 through 05/16/23 [place] in home exercise program. Patient will decrease [...] of Visits Planned: 12 Planned Treatment Interventions: Self-intermediate management (59216), Therapeutic activities (95251), Manual therapy (76692), Neuromuscular re-education (13196), Therapeutic exercise (36868) PLAN FOR NEXT VISIT: assess median nerve [...] mean of general (more content not included)... [facility] 01-15-2023 Note HNO ID: [id number] Author: Jasmina Reyes PA-C Service: ? Author Type: Physician Ratoprinter Type: Progress Notes Filed: 01/15/2023 1:59 PM Note Text: Jasmina Reyes PA-C Department of Orthopaedics Orthopaedics [address] [facility] [address] Dept: [phone] Dept January 15, [address] Justine Leary for an opinion regarding right shoulder pain. My final recommendations will be communicated back to the requesting physician by way of shared Medical record or letter to requesting physician via US mail. CHIEF COMPLAINT: New of the Right Shoulder (Right shoulder pain/Referred by Thelma Leary APRN/Teri 11/20/2022/Last seen by BP 02/24/2019 bilateral ulnar [...] space narrowing and bilateral neural foraminal narrowing. Box Gluer: [facility] Transcribe Date/Time: Nov 21 2022 11:36A [...] bilateral Luschka joints (more content not included)... [facility] 01-15-2023 History of Present illness Narrative Jasmina Reyes PA-C Department of Orthopaedics Orthopaedics [address] [facility] [address] Dept: [phone] Dept January 15, [address] Justine Leary for an opinion regarding right shoulder pain. My final recommendations will be communicated back to the requesting physician by way of shared Medical record or letter to requesting physician via US mail. CHIEF COMPLAINT: New of the Right Shoulder (Right shoulder pain/Referred by Thelma Leary APRN/Teri 11/20/2022/Last seen by BP 02/24/2019 bilateral ulnar nerve neuropathy ) Mr. Bonnie C Juan is a 67 year old male [...] space narrowing and bilateral neural foraminal narrowing. Box Gluer: [facility] Transcribe Date/Time: Nov 21 2022 11:36A Dictated [...] are normal. IMPRESSION: No acute osseous abnormality Box Gluer: [facility] Transcribe Date/Time: Nov 21 2022 4:33P Dictated [...] or dislocation. Joint spaces are maintained. EMG 2018 Extensive electrodiagnostic examination of the right upper [...] HISTORY OF right 4th and 5th injury-[facility] PAST SURGICAL HISTORY OF Right 1985 right [...] anxiety) This note was partially generated using Accelerated IO voice recognition system, and there may be some incorrect words, spellings, and punctuation that were not noted in checking the note before saving. Jasmina Reyes PA-C Patient presents with: Right Shoulder - New: Right shoulder pain Referred by A TARAS Leary Xray 11/20/2022 Last seen by 02/24/2019 bilateral ulnar nerve neuropathy Patient states [...] Daria Jaramillo RN documented in this encounter [facility] 01-15-2023 Note HNO ID: [id number] Author: Daria Jaramillo RN Service: ? Author Type: Registered Nurse Type: Progress Notes Filed: 01/15/2023 1:59 PM Note Text: Patient presents with: Right Shoulder - New: Right shoulder pain Referred by A TARAS Leary Xray 11/20/2022 Last seen by 02/24/2019 bilateral ulnar nerve neuropathy Patient states [...] Continuous Intervention/Comfort measure: Reposition Daria Jaramillo RN [facility] 11-24-2022 Miscellaneous Notes Patient returned call, he [...] to monitor levels. Thank you. Justine Leary APRN.ESUEBIO documented in this encounter [facility] 11-20-2022 Instructions Justine Leary APRN.CNP - 11/20/2022 10:46 AM EDT Get labs completed today Complete xrays Scheduled with Orthopedics Continue to eat a well balanced diet and stay active. Follow up in 1 year or sooner as needed. Massage therapy may be helpful for neck/trap pain. documented in this encounter [facility] 11-20-2022 History of Present illness Narrative Bonnie Martinez is a 66 year old male here for a Medicare wellness visit. Health Risk Assessment In general, health is: Excellent Concerns with balance:Not at all Concerns with teeth or dentures:Not at all Concerns with sexual function:Not at all [place] anxious, stressed, angry, irritable, lonely, isolated, or [...] HISTORY OF right 4th and 5th injury-[facility] PAST SURGICAL HISTORY OF Right 1985 right [...] APRN.CNP This note was partially generated using Accelerated IO voice recognition system. Note was reviewed for accuracy. There may be minor misspellings or grammar miscues with [employer] voice recognition. documented in this encounter [facility] 10-10-2021 Miscellaneous Notes Pt notified of results via [employer]. If questions to contact the office. Sumaya Valadez Ma Can you please call the patient and let him know that his Cologuard was negative. Repeat screening will be due in 3 years. Please let me know if he has any questions. Thank you. Justine Leary APRN.CNP documented in this encounter [facility] 10-01-2021 History of Present illness Narrative View External Lab - Miscellaneous Lab [ID [id number]] documented in this encounter [facility] 09-30-2021 Miscellaneous Notes Patient notified of results, verbalizes understanding of instructions. Jesse Gonzalez LPN Can you please call the patient and let him know that I reviewed his lab results that were completed at [facility], labs were all relatively normal however good [...] View External Lab - Miscellaneous Lab [ID [id number]] Sumaya Valadez Ma documented in this encounter [facility] 09-22-2021 Instructions Justine Leary APRN.EUSEBIO - 09/22/2021 10:46 AM EDT 1.) Get fasting labs completed. 2.) Stool kit will come to your house in the mail. 3.) Continue to use Tylenol 3 as needed for migraine headache. 4.) Follow up in 1 year or sooner as needed. Get 3rd Covid Booster documented in this encounter [facility] 09-22-2021 History of Present illness Narrative This is a 65 year old male who presents today with: Patient presents with: Follow Up: [facility] HISTORY OF PRESENT ILLNESS: Bonnie Martinez is a 65 year old male. Patient presents with: Follow Up: [facility] Here in the office for medication refills [...] HISTORY OF right 4th and 5th injury-[facility] PAST SURGICAL HISTORY OF Right 1985 right [...] activity was identified. 09/22/2021 by Justine Leary APRN.ASSOCIATE LOAN OFFICER ASSESSMENT/PLAN: 1. Nonintractable headache, unspecified chronicity pattern, [...] ICD10: Z23 - VIS sheet provided. - [employer] COVID-19 VACCINE, AGE 12+ YR (LOZANO TOP) Follow up in 1 year or sooner as needed. Discussed treatment plan and patient voices understanding. Patient's questions answered appropriately. Medications and potential side effects were discussed and patient voices understanding. Justine Leary APRN.EUSEBIO This note was partially generated using [employer] voice recognition system. Note was reviewed for accuracy. There may be minor misspellings or grammar miscues with Dragon voice recognition. documented in this encounter [facility] Evaluation note Diagnosis Nonintractable headache, unspecified chronicity pattern, unspecified headache type- Primary Screening for colon cancer Special screening for malignant neoplasms, colon Screening cholesterol level Screening for lipoid disorders Screening for diabetes mellitus Elevated PSA Elevated prostate specific antigen (PSA) Encounter for immunization Need for other specified prophylactic vaccination against single bacterial disease [facility] Medicare annual wellness visit, initial- Primary Routine general medical examination at a [facility] care facility Chronic neck pain Cervicalgia Acute pain of right shoulder Hyperlipidemia with target LDL less than 100 Other and unspecified hyperlipidemia Elevated PSA Elevated prostate specific antigen (PSA) [facility] Diagnosis Bursitis of right shoulder- Primary Disorders of bursae and tendons in shoulder region, unspecified Acute pain of right shoulder Chronic neck pain Cervicalgia Numbness of hand Disturbance of skin sensation DDD (degenerative disc disease), cervical Degeneration of cervical intervertebral disc [facility] Diagnosis Numbness of hand- Primary Disturbance of skin sensation DDD (degenerative disc disease), cervical Degeneration of cervical intervertebral disc [facility] Diagnosis Acute pain of right shoulder- Primary Chronic neck pain Cervicalgia [facility] Diagnosis Acute pain of right shoulder- Primary Chronic neck pain Cervicalgia [facility] Diagnosis Pain in both knees, unspecified chronicity- Primary Bilateral hip pain Pain in joint, pelvic region and thigh [facility] Diagnosis History of flank pain- Primary Personal history of other specified diseases Dark urine Other nonspecific finding on examination of urine Elevated PSA Elevated prostate specific antigen (PSA) [facility] Diagnosis Elevated PSA- Primary Elevated prostate specific antigen (PSA) [facility] Diagnosis History of flank pain Personal history of other specified diseases Dark urine Other nonspecific finding on examination of urine documented in this encounter [facility] note* Diagnosis Kidney stone- Primary Calculus of kidney Elevated PSA Elevated prostate specific antigen (PSA) Flank pain Abdominal pain, unspecified site Encounter for observation for other suspected diseases and conditions ruled out documented in this encounter [facility] note* Diagnosis Pain in both knees, unspecified chronicity Bilateral hip pain Pain in joint, pelvic region and thigh documented in this encounter [facility] note* Diagnosis Kidney stone Calculus of kidney Flank pain Abdominal pain, unspecified site documented in this encounter [facility] note* Diagnosis Kidney stone Calculus of kidney Flank pain Abdominal pain, unspecified site documented in this encounter [facility] note* Diagnosis Bilateral hip pain Pain in joint, pelvic region and thigh documented in this encounter [facility] note* Diagnosis Acute pain of right shoulder Chronic neck pain Cervicalgia documented in this encounter [facility] note* Diagnosis Kidney stones [N20.0]- Primary Calculus of kidney documented in this encounter [facility] note* Diagnosis Kidney stone- Primary Calculus of kidney documented in this encounter [facility] note* Diagnosis Kidney stone- Primary Calculus of kidney documented in this encounter [facility] for referral (narrative)* Diagnostic Procedure Only (Routine) - Closed Specialty Diagnoses / Procedures Referred By Roberto pino Referred To Contact XR IMAGING Diagnoses Bilateral hip pain Procedures XR HIP BILATERAL 5V PEL/AP/LAT EACH HIP RADEX HIPS BILATERAL WITH PELVIS MINIMUM 5 VIEWS Justine Leary APRN.ASSOCIATE LOAN OFFICER [address] [place] [address] [place] [address] Referral ID Status Reason Start Date Expiration Date V isits Requested Visits Authorized [id number] Closed Auto-Generate d Referral 09/12/2023 10/11/2024 1 1 * Consult, Test, Treat (Routine) - Authorized Specialty Diagnoses / Procedures Referred By Roberto pino Referred To Contact Orthopedics Diagnoses Bilateral hip pain Procedures CONSULT TO ORTHOPAEDICS OFFICE/OUTPATIENT [facility] 60 MINUTES Justine Leary APRN.CNP [address] [place] [address] Referral ID Status Reason Start Date Expiration Date Visits Requested Visits Authorized [id number] Authorized PCP Requested Referral 09/12/2023 09/11/2024 1 1 * Diagnostic Procedure Only (Routine) - Closed Specialty Diagnoses / Procedures Referred By Richardac t Referred To Contact XR IMAGING Diagnoses Pain in both knees, unspecified chronicity Procedures XR KNEE GENERAL 4V AP BOTH/PA BOTH/LAT/MERC BILATERAL RADIOLOGIC EXAM KNEE COMPLETE 4/MORE VIEWS Justine Leary APRN.ASSOCIATE LOAN OFFICER [address] [place] [address] [place] [address] Referral ID Status Reason Start Date Expiration Date V isits Requested Visits Authorized [id number] Closed Auto-Generate d Referral 09/12/2023 10/11/2024 1 1 [facility] Diagnostic Procedure Only (Routine) - Authorized Specialty Diagnoses / Procedures Referred By Roberto pino Referred To Contact US IMAGING Diagnoses History of flank pain Dark urine Procedures US KIDNEY/BLADDER US RETROPERITONEAL REAL TIME W/IMAGE COMPLETE Justine Leary APRN.CNP [address] [place] [address] [place] [address] Referral ID Status Reason Start Date Expiration Date Visits Requested Visits Authorized [id number] Authorized Auto-Generat ed Referral 10/02/2023 10/31/2024 1 1 [facility] for referral (narrative)* Diagnostic Procedure Only (Routine) - New Request Specialty Diagnoses / Procedures Referred By Contac t Referred To Contact XR IMAGING Diagnoses Kidney stone Flank pain Procedures XR ABDOMEN 1V SUPINE RADIOLOGIC EXAM ABDOMEN 1 VIEW Patrice Edwards Jr., MD [address] [place] [address] [place] [address] Referral ID Status Reason Start Date Expiration Date Visits Requested Visits Authorized [id number] New Request Auto-Generat ed Referral 10/25/2023 11/23/2024 1 1 * MRI/CT (Routine) - Authorized Specialty Diagnoses / Procedures Referred By Contac t Referred To Contact MR IMAGING Diagnoses Encounter for observation for other suspected diseases and conditions ruled out Procedures MRI PROSTATE WO/W IVCON MRI PELVIS W/O & W/CONTRAST MATERIAL Patrice Edwards Jr., MD [address] [place] [address] [place] [address] Referral ID Status Reason Start Date Expiration Date Visits Requested Visits Authorized [id number] Authorized Auto-Generat ed Referral 10/25/2023 11/23/2024 1 1 * MRI/CT (Routine) - Authorized Specialty Diagnoses / Procedures Referred By Contac t Referred To Contact CT IMAGING Diagnoses Kidney stone Flank pain Procedures CT FLANK WO IVCON CT ABD & PELVIS W/[place] [address] [place] [address] [address] [id number] Referral ID Status Reason Start Date Expiration Date Visits Requested Visits Authorized [id number] Authorized Auto-Generat ed Referral 10/25/2023 11/23/2024 1 1 [facility] for referral (narrative)* Diagnostic Procedure Only (Routine) - Closed Specialty Diagnoses / Procedures Referred By Contac t Referred To Contact XR IMAGING Diagnoses Bilateral hip pain Procedures XR HIP BILATERAL 5V PEL/AP/LAT EACH HIP RADEX HIPS BILATERAL WITH PELVIS MINIMUM 5 VIEWS Justine Leary APRN.ASSOCIATE LOAN OFFICER [address] [place] [address] [place] [address] Referral ID Status Reason Start Date Expiration Date V isits Requested Visits Authorized [id number] Closed Auto-Generate d Referral 09/12/2023 10/11/2024 1 1 * Diagnostic Procedure Only (Routine) - Closed Specialty Diagnoses / Procedures Referred By Contac t Referred To Contact XR IMAGING Diagnoses Pain in both knees, unspecified chronicity Procedures XR KNEE GENERAL 4V AP BOTH/PA BOTH/LAT/MERC BILATERAL RADIOLOGIC EXAM KNEE COMPLETE 4/MORE VIEWS Justine Leary APRN.ASSOCIATE LOAN OFFICER [address] [place] [address] [place] [address] Referral ID Status Reason Start Date Expiration Date V isits Requested Visits Authorized [id number] Closed Auto-Generate d Referral 09/12/2023 10/11/2024 1 1 [facility] for referral (narrative)* Diagnostic Procedure Only (Routine) - Closed Specialty Diagnoses / Procedures Referred By Contac t Referred To Contact XR IMAGING Diagnoses Chronic neck pain Procedures XR CERV OTHER 4V AP/LAT/OBL RADEX SPINE CERVICAL 4 OR 5 VIEWS Justine Leary APRN.ASSOCIATE LOAN OFFICER [address] [place] [address] [place] [address] Referral ID Status Reason Start Date Expiration Date V isits Requested Visits Authorized [id number] Closed Auto-Generate d Referral 11/20/2022 12/20/2023 1 1 * Diagnostic Procedure Only (Routine) - Closed Specialty Diagnoses / Procedures Referred By Contac t Referred To Contact XR IMAGING Diagnoses Acute pain of right shoulder Procedures XR SHOULDER GENERAL 3V OR MORE AP/TRUE AP/OTHER RIGHT RADEX SHOULDER COMPLETE MINIMUM 2 VIEWS Justine Leary APRN.ASSOCIATE LOAN OFFICER [address] [place] [address] [place] [address] Referral ID Status Reason Start Date Expiration Date V isits Requested Visits Authorized [id number] Closed Auto-Generate d Referral 11/20/2022 12/20/2023 1 1 [facility] for referral (narrative)* Diagnostic Procedure Only (Routine) - New Request Specialty Diagnoses / Procedures Referred By Contac t Referred To Contact XR IMAGING Diagnoses Kidney stone Procedures XR ABDOMEN 1V SUPINE RADIOLOGIC EXAM ABDOMEN 1 VIEW Patrice Edwards Jr., MD [address] [place] [address] [place] [address] Referral ID Status Reason Start Date Expiration Date Visits Requested Visits Authorized [id number] New Request Auto-Generat ed Referral 01/01/2025 1 1 [facility] for visit Narrative* Diagnostic Procedure Only (Routine) - Closed Specialty Diagnoses / Procedures Referred By Contac t Referred To Contact XR IMAGING Diagnoses Bilateral hip pain Procedures XR HIP BILATERAL 5V PEL/AP/LAT EACH HIP RADEX HIPS BILATERAL WITH PELVIS MINIMUM 5 VIEWS Justine Leary APRN.CNP [address] [place] [address] [place] [address] Referral ID Status Reason Start Date Expiration Date V isits Requested Visits Authorized [id number] Closed Auto-Generate d Referral 09/12/2023 10/11/2024 1 1 [facility] for visit Narrative* Diagnostic Procedure Only (Routine) - Closed Specialty Diagnoses / Procedures Referred By Contac t Referred To Contact XR IMAGING Diagnoses Kidney stone Flank pain Procedures XR ABDOMEN 1V SUPINE RADIOLOGIC EXAM ABDOMEN 1 VIEW Patrice Edwards Jr., MD [address] [place] [address] [place] [address] Referral ID Status Reason Start Date Expiration Date V isits Requested Visits Authorized [id number] Closed Auto-Generate d Referral 10/25/2023 11/23/2024 1 1 [facility] for visit Narrative* Diagnostic Procedure Only (Routine) - Closed Specialty Diagnoses / Procedures Referred By Contac t Referred To Contact XR IMAGING Diagnoses Chronic neck pain Procedures XR CERV OTHER 4V AP/LAT/OBL RADEX SPINE CERVICAL 4 OR 5 VIEWS Justine Leary APRN.ASSOCIATE LOAN OFFICER [address] [place] [address] [place] [address] Referral ID Status Reason Start Date Expiration Date V isits Requested Visits Authorized [id number] Closed Auto-Generate d Referral 11/20/2022 12/20/2023 1 1 [facility] Instructions Name Dates Details Patient Instructions Indication:Abnormal [...] neck pain Procedures CONSULT TO ORTHOPAEDICS OFFICE/OUTPATIENT [facility] 60-74 MINUTES Justine Leary APRN.ASSOCIATE LOAN OFFICER [address] [place] [address] Referral ID Status Reason Start Date Expiration Date Visits Requested Visits Authorized [id number] Authorized PCP Requested Referral 11/20/2022 11/20/2023 1 1 Specialty Diagnoses / Procedures Referred By Contac t Referred To Contact XR IMAGING Diagnoses Chronic neck pain Procedures XR CERV OTHER 4V AP/LAT/OBL RADEX SPINE CERVICAL 4 OR 5 VIEWS Justine Leary APRN.ASSOCIATE LOAN OFFICER [address] [place] [address] [place] [address] Referral ID Status Reason Start Date Expiration Date V isits Requested Visits Authorized [id number] Closed Auto-Generate d Referral 11/20/2022 12/20/2023 1 1 Specialty Diagnoses / Procedures Referred By Contac t Referred To Contact XR IMAGING Diagnoses Acute pain of right shoulder Procedures XR SHOULDER GENERAL 3V OR MORE AP/TRUE AP/OTHER RIGHT RADEX SHOULDER COMPLETE MINIMUM 2 VIEWS Justine Leary, TARAS.ASSOCIATE LOAN OFFICER [address] [place] [address] [place] [address] Referral ID Status Reason Start Date Expiration Date V isits Requested Visits Authorized [id number] Closed Auto-Generate d Referral 11/20/2022 12/20/2023 1 1 Specialty Diagnoses / Procedures Referred By Contac t Referred To Contact [facility] Diagnoses Numbness of hand DDD (degenerative disc disease), cervical Procedures CONSULT TO PHYSICAL THERAPY PHYSICAL THERAPY EVALUATION HIGH COMPLEX 45 MINS Jasmina Reyes PA-C [address] [place] [address] [facility] [place] [address] [place] [address] Referral ID Status Reason Start Date Expiration Date Visits Requested Visits Authorized [id number] Pending Review PCP Requested Referral Auto-Generate d Referral 3 01/15/2024 99 99 Specialty Diagnoses / Procedures Referred By Contac t Referred To Contact US IMAGING Diagnoses Numbness of hand Procedures US ELBOW LEFT US LMTD JOINT/OTH NONVASC XTR STRUX R-T W/Jasmina Quezada PA-C [address] [place] [address] [id number] Referral ID Status Reason Start Date Expiration Date Visits Requested Visits Authorized [id number] Pending Review Auto-Generat ed Referral 3 02/14/2024 1 1 Specialty Diagnoses / Procedures Referred By Contac t Referred To Contact US IMAGING Diagnoses Numbness of hand Procedures US ELBOW RIGHT US LMTD JOINT/OTH NONVASC XTR STRUX R-T W/Jasmina Quezada PA-C [address] [place] [address] [id number] Referral ID Status Reason Start Date Expiration Date Visits Requested Visits Authorized [id number] Pending Review Auto-Generat ed Referral 3 02/14/2024 1 1 Specialty Diagnoses / Procedures Referred By Contac t Referred To Contact Urology Diagnoses Elevated PSA Procedures CONSULT TO UROLOGY OFFICE/OUTPATIENT NEW HIGH MDM 60 MINUTES Justine Leary APRN.ASSOCIATE LOAN OFFICER [address] [place] [address] Referral ID Status Reason Start Date Expiration Date Visits Requested Visits Authorized [id number] Authorized PCP Requested Referral 10/03/2023 10/02/2024 1 1 Specialty Diagnoses / Procedures Referred By Contac t Referred To Contact CT IMAGING Diagnoses Kidney stone Flank pain Procedures CT FLANK WO IVCON CT ABD & PELVIS W/O CONTRAST Patrice Edwards Jr., MD [address] [place] [address] [place] [address] Referral ID Status Reason Start Date Expiration Date V isits Requested Visits Authorized [id number] Closed Auto-Generate d Referral 10/25/2023 11/23/2024 1 [...] or prosecute any alcohol or drug abuse patient.[facility] the event this information is protected by the Federal Confidentiality of Alcohol and Drug Abuse Patient Records regulations: The Federal rules restrict any use of the information to criminally investigate or prosecute any alcohol or drug abuse patient.[facility] the event this information is protected by the Federal Confidentiality of Alcohol and Drug Abuse Patient Records regulations: The Federal rules restrict any use of the information to criminally investigate or prosecute any alcohol or drug abuse patient.[facility] the event this information is protected by the Federal Confidentiality of Alcohol and Drug Abuse Patient Records regulations: The Federal rules restrict any use of the information to criminally investigate or prosecute any alcohol or drug abuse patient.[facility] the event this information is protected by the Federal Confidentiality of Alcohol and Drug Abuse Patient Records regulations: The Federal rules restrict any use of the information to criminally investigate or prosecute any alcohol or drug abuse patient.[facility] System[facility] the event this information is protected by the Federal Confidentiality of Alcohol and Drug Abuse Patient Records regulations: The Federal rules restrict any use of the information to criminally investigate or prosecute any alcohol or drug abuse patient.[facility] System[facility] the event this information is protected by the Federal Confidentiality of Alcohol and Drug Abuse Patient Records regulations: The Federal rules restrict any use of the information to criminally investigate or prosecute any alcohol or drug abuse patient.[facility] System[facility] the event this information is protected by the Federal Confidentiality of Alcohol and Drug Abuse Patient Records regulations: The Federal rules restrict any use of the information to criminally investigate or prosecute any alcohol or drug abuse patient.[facility] System[facility] the event this information is protected by the Federal Confidentiality of Alcohol and Drug Abuse Patient Records regulations: The Federal rules restrict any use of the information to criminally investigate or prosecute any alcohol or drug abuse patient.[facility] System[facility] the event this information is protected by the Federal Confidentiality of Alcohol and Drug Abuse Patient Records regulations: The Federal rules restrict any use of the information to criminally investigate or prosecute any alcohol or drug abuse patient.[facility] System[facility] the event this information is protected by the Federal Confidentiality of Alcohol and Drug Abuse Patient Records regulations: The Federal rules restrict any use of the information to criminally investigate or prosecute any alcohol or drug abuse patient.[facility] System[facility] the event this information is protected by the Federal Confidentiality of Alcohol and Drug Abuse Patient Records regulations: The Federal rules restrict any use of the information to criminally investigate or prosecute any alcohol or drug abuse patient.[facility] System[facility] the event this information is protected by the Federal Confidentiality of Alcohol and Drug Abuse Patient Records regulations: The Federal rules restrict any use of the information to criminally investigate or prosecute any alcohol or drug abuse patient.[facility] the event this information is protected by the Federal Confidentiality of Alcohol and Drug Abuse Patient Records regulations: The Federal rules restrict any use of the information to criminally investigate or prosecute any alcohol or drug abuse patient.[facility] System[facility] the event this information is protected by the Federal Confidentiality of Alcohol and Drug Abuse Patient Records regulations: The Federal rules restrict any use of the information to criminally investigate or prosecute any alcohol or drug abuse patient.[facility] System[facility] the event this information is protected by the Federal Confidentiality of Alcohol and Drug Abuse Patient Records regulations: The Federal rules restrict any use of the information to criminally investigate or prosecute any alcohol or drug abuse patient.[facility] SystemIn the event this information is protected by the Federal Confidentiality of Alcohol and Drug Abuse Patient Records regulations: The Federal rules restrict any use of the information to criminally investigate or prosecute any alcohol or drug abuse patient.[facility] the event this information is protected by the Federal Confidentiality of Alcohol and Drug Abuse Patient Records regulations: The Federal rules restrict any use of the information to criminally investigate or prosecute any alcohol or drug abuse patient.[facility] SystemIn the event this information is protected by the Federal Confidentiality of Alcohol and Drug Abuse Patient Records regulations: The Federal rules restrict any use of the information to criminally investigate or prosecute any alcohol or drug abuse patient.[facility] System[facility] the event this information is protected by the Federal Confidentiality of Alcohol and Drug Abuse Patient Records regulations: The Federal rules restrict any use of the information to criminally investigate or prosecute any alcohol or drug abuse patient.[facility] System[facility] the event this information is protected by the Federal Confidentiality of Alcohol and Drug Abuse Patient Records regulations: The Federal rules restrict any use of the information to criminally investigate or prosecute any alcohol or drug abuse patient.[facility] SystemIn the event this information is protected by the Federal Confidentiality of Alcohol and Drug Abuse Patient Records regulations: The Federal rules restrict any use of the information to criminally investigate or prosecute any alcohol or drug abuse patient.[facility] SystemIn the event this information is protected by the Federal Confidentiality of Alcohol and Drug Abuse Patient Records regulations: The Federal rules restrict any use of the information to criminally investigate or prosecute any alcohol or drug abuse patient.[facility] System[facility] the event this information is protected by the Federal Confidentiality of Alcohol and Drug Abuse Patient Records regulations: The Federal rules restrict any use of the information to criminally investigate or prosecute any alcohol or drug abuse patient.[facility] System[facility] the event this information is protected by the Federal Confidentiality of Alcohol and Drug Abuse Patient Records regulations: The Federal rules restrict any use of the information to criminally investigate or prosecute any alcohol or drug abuse patient.[facility] SystemIn the event this information is protected by the Federal Confidentiality of Alcohol and Drug Abuse Patient Records regulations: The Federal rules restrict any use of the information to criminally investigate or prosecute any alcohol or drug abuse patient.[facility] SystemIn the event this information is protected by the Federal Confidentiality of Alcohol and Drug Abuse Patient Records regulations: The Federal rules restrict any use of the information to criminally investigate or prosecute any alcohol or drug abuse patient.[facility] SystemIn the event this information is protected by the Federal Confidentiality of Alcohol and Drug Abuse Patient Records regulations: The Federal rules restrict any use of the information to criminally investigate or prosecute any alcohol or drug abuse patient.[facility] SystemIn the event this information is protected by the Federal Confidentiality of Alcohol and Drug Abuse Patient Records regulations: The Federal rules restrict any use of the information to criminally investigate or prosecute any alcohol or drug abuse patient.[facility] SystemIn the event this information is protected by the Federal Confidentiality of Alcohol and Drug Abuse Patient Records regulations: The Federal rules restrict any use of the information to criminally investigate or prosecute any alcohol or drug abuse patient.[facility] Reason for Visit (unrecogniz ed section and content) Reason Comments Physical Therapy Specialty Diagnoses / Procedures Referred By Roberto pino Referred To Contact [facility] Diagnoses Numbness of hand DDD (degenerative disc disease), cervical Procedures CONSULT TO PHYSICAL THERAPY PHYSICAL THERAPY EVALUATION HIGH COMPLEX 45 MINS Jasmina Reyes PA-C [address] [place] [address] [facility] [place] [address] [place] [address] Referral ID Status Reason Start Date Expiration Date Visits Requested Visits Authorized [id number] Authorized PCP Requested Referral Auto-Generate d Referral 02/19/2023 02/19/2024 99 99 Reason Comments Follow Up mirgrains Reason Comments Abstract external document Reason Comments Results Cologuard Reason Comments Results Labs ([facility]) Reason Comments Medicare Wellness Exam Reason Comments Results Labs and Xray Orders Reason Comments New Right shoulder painR eferred by Jyoti Snell 11/20/2022Last seen by BP 02/24/2019 bilateral ulnar nerve neuropathy Specialty Diagnoses / Procedures Referred By Roberto pino Referred To Contact Orthopedics Diagnoses Acute pain of right shoulder Chronic neck pain Procedures CONSULT TO ORTHOPAEDICS OFFICE/OUTPATIENT NEW HIGH MDM 60-74 MINUTES Justine Leary APRN.[employer] [address] [place] [address] Referral ID Status Reason Start Date Expiration Date V isits Requested Visits Authorized [id number] Closed PCP Requested Referral 11/20/2022 11/20/2023 1 1 Reason Comments PT Eval Reason Onset Date Comments Population Health Navigation Outreach 06/08/2023 [employer] - AWV, Care gaps, HCC [...] RETROPERITONEAL REAL TIME W/IMAGE COMPLETE Justine Leary APRN.[employer]ATE LO[employer] OFFICER [address] [place] [address] [place] [address] Referral ID Status Reason Start Date Expiration Date V isits Requested Visits Authorized [id number] Closed Auto-Generate d Referral 10/02/2023 10/31/2024 1 1 Reason Comments Results Us Kidney/bladder Reason Comments Elevated PSA Kidney Stones Specialty Diagnoses / Procedures Referred By Contac t Referred To Contact Urology Diagnoses Elevated PSA Procedures CONSULT TO UROLOGY OFFICE/OUTPATIENT NEW HIGH MDM 60 MINUTES Justine Leary APRN.[employer] OFFICER [address] [place] [address] Referral ID Status Reason Start Date Expiration Date V isits Requested Visits Authorized [id number] Closed PCP Requested Referral 10/03/2023 10/02/2024 [address] Specialty Diagnoses / Procedures Referred By Contac t Referred To Contact CT IMAGING Diagnoses Kidney stone Flank pain Procedures CT FLANK WO IVCON CT ABD & PELVIS W/O CONTRAST Patrice Edwards Jr., MD [address] [place] [address] [place] [address] Referral ID Status Reason Start Date Expiration Date V isits Requested Visits Authorized [id number] Closed Auto-Generate d Referral 10/25/2023 11/23/2024 1 1 Reason Comments New Pain Specialty Diagnoses / Procedures Referred By Contac t Referred To Contact Orthopedics Diagnoses Bilateral hip pain Procedures CONSULT TO ORTHOPAEDICS OFFICE/OUTPATIENT [facility] 60 MINUTES Justine Leary APRN.CNP [address] [place] [address] Referral ID Status Reason Start Date Expiration Date V isits Requested Visits Authorized [id number] Closed PCP Requested Referral 09/12/2023 09/11/2024 1 1 Reason Comments Kidney Stones Reason Comments Schedule Surgery Reason Comments Appointment Reason Comments Patient Update Care Teams (unrecognized sec tion and content) Director Embalmer Relationship Specialty Start Date End Date Lilian Chowdhury MD [address] [place] [address] PCP - General Family Practice 05/31/15 Director Embalmer Relationship Specialty Start Date End Date Lilian Chowdhury MD [address] [place] [address] PCP - General Family Practice 05/31/15 Director Embalmer Relationship Specialty Start Date End Date Lilian Chowdhury MD [address] [place] [address] PCP - General Family Medicine 05/31/15 Director Embalmer Relationship Specialty Start Date End Date Lilian Chowdhury MD [address] [place] [address] PCP - General Family Medicine 05/31/15 Director Embalmer Relationship Specialty Start Date End Date Lilian Chowdhury MD [address] [place] [address] PCP - General Family Medicine 05/31/15 Director Embalmer Relationship Specialty Start Date End Date Lilian Chowdhury MD [address] [place] [address] PCP - General Family Medicine 05/31/15 Director Embalmer Relationship Specialty Start Date End Date Lilian Chowdhury MD [address] [facility] [place] [address] PCP - General Family Medicine 05/31/15 Director Embalmer Relationship Specialty Start Date End Date Lilian Chowdhury MD [address] [facility] [place] [address] PCP - General Family Medicine 05/31/15 Director Embalmer Relationship Specialty Start Date End Date Lilian Chowdhury MD [address] [facility] [place] [address] PCP - General Family Medicine 05/31/15 Director Embalmer Relationship Specialty Start Date End Date Lilian Chowdhury MD [address] [facility] [place] [address] PCP - General Family Medicine 05/31/15 Director Embalmer Relationship Specialty Start Date End Date Lilian Chowdhury MD [address] [facility] [place] [address] PCP - General Family Medicine 05/31/15 Director Embalmer Relationship Specialty Start Date End Date Lilian Chowdhury MD [address] [facility] [place] [address] PCP - General Family Medicine 05/31/15 Director Embalmer Relationship Specialty Start Date End Date Lilian Chowdhury MD [address] [facility] [place] [address] PCP - General Family Medicine 05/31/15 Director Embalmer Relationship Specialty Start Date End Date Lilian Chowdhury MD [address] [facility] [place] [address] PCP - General Family Medicine 05/31/15 Director Embalmer Relationship Specialty Start Date End Date Lilian Chowdhury MD [address] [facility] [place] [address] PCP - General Family Medicine 05/31/15 Director Embalmer Relationship Specialty Start Date End Date Lilian Chowdhury MD [address] [facility] [place] [address] PCP - General Family Medicine 05/31/15 Director Embalmer Relationship Specialty Start Date End Date Lilian Chowdhury MD [address] [place] [address] PCP - General Family Medicine 05/31/15 Director Embalmer Relationship Specialty Start Date End Date Lilian Cohwdhury MD [address] [place] [address] PCP - General Family Medicine 05/31/15 Director Embalmer Relationship Specialty Start Date End Date Lilian Chowdhury MD [address] [place] [address] PCP - General Family Medicine 05/31/15 Director Embalmer Relationship Specialty Start Date End Date Lilian Chowdhury MD [address] [facility] [place] [address] PCP - General Family Medicine 05/31/15 Director Embalmer Relationship Specialty Start Date End Date Lilian Chowdhury MD [address] [facility] [place] [address] PCP - General Family Medicine 05/31/15 Director Embalmer Relationship Specialty Start Date End Date Lilian Chowdhury MD [address] [facility] [place] [address] PCP - General Family Medicine 05/31/15 Director Embalmer Relationship Specialty Start Date End Date Lilian Chowdhury MD [address] [place], [place] [address] PCP - General Family Medicine 05/31/15 Director Embalmer Relationship Specialty Start Date End Date Lilian Chowdhury MD [address] [place], [place] [address] PCP - General Family Medicine 05/31/15 (unrecognized sect ion and content) No Status Records FoundNo Status Records Found INFORMATION SOURCE (unrecogn ized section and content) DATE CREATED AUTHOR 11/29/2023 [facility] DATE CREATED AUTHOR 'S ORGANIZ ATION 2023 [facility] FOR RECORDS PERTAINING TO PATIENTS WHO ARE [...] BE BASED ON THE PRIMARY CLINICAL RECORDS. [facility]. provides no warranty or guarantee of the accuracy or completeness of information in this document.
[2023-12-08] MEDS: Ceftriaxone 1 GM/50 ML BAG IV (21:23)
[2023-12-08 22:17] VITALS: BP 163/81; PULSE 78; RESP 18; TEMP 36.6; O2SAT 98; BMI 30.8
[2023-12-08] MEDS: 0.9% Normal Saline (250mL Bag) 250 ML 15 ML IV (23:00)
--- OUTSIDE RECORDS SUMMARY | 2023-12-08 23:08 | XMS RPT_ITS | CCD ---
Author Organization [facility] Care Team Providers Care Fish Frog Or Oyster Farmer Name Role Phone Subha Camacho Unavailable Deny Qiu Unavailable Yudith Vaz Unavailable Unavailable Skidway Worker, System Unavailable Unavailable Rosi Smith Unavailable Unavailable Marycarmen Robles Unavailable Unavailable Alma Garza Unavailable Unavailable Unavailable Lilian Chowdhury MD Primary Care Provider Lilian Chowdhury MD Primary Care Provider Lilian Chowdhury MD Primary Care Provider Lilian Chowdhury MD Primary Care Provider Lilian Chowdhury MD Primary Care Provider LLIIAN CHOWDHURY Primary Care Unavailable PATRICE EDWARDS JR [...] [ERYTHROMYCIN BASE] Drug Allergy 9 GI Upset [facility] Work Phone: (3 sources) tamsulosin; Translations: [TAMSULOSIN] Drug Allergy 4 Intolerance [facility] Other [place] [facility] Medications Current Medications Medication Drug Class(es) [...] EVALon 024 ANES POSTPROC EVAL HNO ID: [id number] Author: TORSTEN MELGAR MD Service: Anesthesiology Author Type: Physician Type: Anesthesia Postprocedure Evaluation Filed: 12/03/2023 11:09 Note Text: POST ANESTHESIA EVALUATION NOTE : 1955 Procedure Summary Date: 12/03/23 Room / Location: [place] / [place] Anesthesia Start: 1018 [...] December 03, 2023 TIME: 11:09 AM CSN: [id number] [facility] ANES PRE-OPon 12-03-2023 ANES PRE-OP HNO ID: [id number] Author: TORSTEN MELGAR MD Service: Anesthesiology Author Type: Physician Type: Anesthesia Preprocedure Evaluation Filed: 12/03/2023 09:51 Note Text: ANESTHESIOLOGY DAY OF SURGERY NOTE : 1955 Procedure Information Date/Time: 12/03/23 1126 Procedure: EXTRACORPOREAL SHOCKWAVE LITHOTRIPSY UNILATERAL (Right: Kidney) Location: [place] OR 20 / [place] Surgeons: Patrice Edwards Jr., MD Estimated [...] December 03, 2023 TIME: 9:51 AM CSN: [id number] [facility] 12-03-2023 CNPN Telephone (AKURFL) ----- BONNIE MARTINEZ ([id number]) 1955 M Date Time Provider Department 12/03/23 PATRICE EDWARDS JR During your visit today, we recorded the following information about you: Patrice Edwards Jr., MD 12/03/2023 10:18 AM Signed [facility] or 12/03/23 Fu with nd 4 weeks John prior ordered Sue Griffin 12/03/2023 2:02 PM Signed Spoke to patient Patient is scheduled January 09, 2024 at 2pm, [facility] location, john prior Patient agrees and understands Thank you Sue Allergies As of Date: 12/03/2023 Noted Allergy Reaction ERYTHROMYCIN BASE 09/21/2008 8 - GI Upset FLOMAX (TAMSULOSIN) 11/29/2023 5 - Intolerance Comments: Bad diarrhea Date Reviewed: 12/03/2023 Reviewed by: Kervin Asif, RN - Fully Assessed Reason for Visit: Appointment [186] Primary Visit Diagnosis:Kidney stone [N20.0] Order(s):XR ABDOMEN 1V SUPINE [[id number]] Order #: [id number] FUTURE Prescriptions as of 12/03/2023 - oxyCODONE-acetaminophen [...] [M54.2, G89.29] 04/04/2023 Encounter Status:Closed by PATRICE EDWARSD on 12/03/23 [facility] HISTORY PHYSICALon HISTORY PHYSICAL HNO ID: [id number] Author: PATRICE EDWARDS JR, MD Service: Urology [...] SURGICAL HISTORY OF right 4th and 5th injury-[facility] PAST SURGICAL HISTORY OF Right 1985 [...] nephrolithiasis measuring up to 1.3 cm, unchanged. Wheel Fitter: DEVANG Transcribe Date/Time: Dec 03 2023 9:20A [...] Urology #[id number] 9:29 AM 12/03/23 [facility] OPERATIVE NOon 12-03-2023 OPERATIVE NO HNO ID: [id number] Author: PATRICE EDWARDS JR, MD Service: Urology [...] MD ----- Urology Operative Report LOG ID: [id number] SURGERY/PROCEDURE DATE: 12/03/2023 INCISION/PROCEDURE START TIME: 10:27 AM INCISION CLOSE/PROCEDURE END TIME: 11:01 AM PreOp Dx RIGHT renal calculus PostOp Dx Same Operation : RIGHT Extracorporeal Shock Wave Lithotripsy SURGEON(S)/PROCEDURALIST( S) AND SOFTWARE APPLICATIONS DEVELOPER(S): Surgeons and Role: * Patrice Edwards Jr., [...] 2 Urology #[id number] 11:15 AM 12/03/23 Normal [facility] XR ABDOMEN 1V SUPINEon 12-02 XR ABDOMEN 1V SUPINE * * *Final Report* * * DATE OF EXAM: Dec 03 2023 9:12AM AKX [id number] - XR ABDOMEN 1V SUPINE / PROCEDURE REASON: Pre/Post operative evaluation * * * * Physician Interpretation * * * * XR ABDOMEN 1V [id number]/03/2023 9:12 AM CLINICAL HISTORY: Pre/Post operative evaluation COMPARISON: Abdominal radiograph 10/30/2023. TECHNIQUE: XR ABDOMEN 1V SUPINE RESULT: Multiple bilateral renal calculi measuring up to 1.3 cm in the right upper pole, similar to 10/30/2023 CT abdomen and pelvis. Moderate stool. No dilated bowel. Degenerative changes. IMPRESSION: Bilateral nephrolithiasis measuring up to 1.3 cm, unchanged. Wheel Fitter: HunterOnB Transcribe Date/Time: Dec 03 2023 9:20A Dictated by : HARSH DINERO MD This examination was interpreted and the report reviewed and electronically signed by: HARSH DINERO MD on Dec 03 2023 9:22AM EST [id number] Normal [facility] Bacteria Ur Culton 4 Bacteria identified Cx Nom (U) ORGANISM ID: 1 10,000 -<50,000 CFU/ml Normal urogenital lazaro Normal [facility] Comment on above: Performed By: #### 6 30-4 ####[facility] TEODORO [id number] [address] [place] Aishwarya 11-13-2023 [place] Telephone (UROLAE) ----- BONNIE MARTINEZ ([id number]) 1955 M Date Time Provider Department 11/13/23 [...] a prescription gets sent to his pharmacy- [facility] in [place]. Please advise. Thanks, Patrice Barcenas Jr., MD [...] by JOYCE MARLEY on 11/13/23 [facility] CNOVon 11-08-2023 CN Office Visit (AKURFL ) ----- BONNIE MARTINEZ ([id number]) 1955 M Date Time Provider Department 11/08/23 [...] do laser litho or pcnl. [facility] LAB: Creatinine Date Value Ref Range Status 10/02/2023 1.25 (H) 0.73 - 1.22 mg/dL Final PSA (ng/mL) Date Value 10/02/2023 7.55 11/21/2022 6.61 PSA Screening (ng/mL) Date Value 11/06/2019 4.56 Glucose, Urine (no units) Date Value 10/02/2023 Negative Bilirubin, Urine (no units) Date Value 10/02/2023 Negative Ketones, Urine (no units) Date Value 10/02/2023 Negative Specific [place], Ur (no units) Date Value 10/02/2023 1.013 [...] MD 11/08/2023 Referring Provider: PATRICE EDWARDS JR [[id number]] Allergies As of Date: 11/08/2023 Noted Allergy Reaction ERYTHROMYCIN BASE 09/21/2008 8 - GI Upset Date Reviewed: 11/08/2023 Reviewed by: Patrice Edwards Jr., MD - Fully Assessed Reason for Visit: Kidney Stones [51207] Primary Visit Diagnosis:Kidney stones [N20.0] [N20.0] Order(s):UA DIP, URINE (POC) [[id number]] Order #: [id number]. #:[id number] Prescriptions as of 11/08/2023 - tamsulosin [...] Disposition History (more content not included)... Normal [facility] UA DIP, URINE (POC)on 2023 BILIRUBIN UA (POCT) Negative Negative [facility] CLARITY UA (POCT) Clear [facility] COLOR UA (POCT) Yellow [facility] GLUCOSE UA (POCT) Negative Negative mg/dL [facility] Hemoglobin Ql (U) Trace-intact Abnormal Negative [facility] Interpretation and review of laboratory results Abnormal [facility] KETONE UA (POCT) Negative Negative mg/dL [facility] LEUKOCYTES UA (POCT) Negative Negative [facility] NITRITE UA (POCT) Negative Negative [facility] PH UA (POCT) 5.5 4.5 - 8.0 [facility] Protein Ql (U) Negative Negative mg/dL [facility] SPECIFIC GRAVITY UA (POCT) 1.020 1.005 - 1.030 [facility] UROBILINOGEN UA (POCT) 0.2 Normal E.U./dL [facility] Location:[facility], [address] [place] [address], [address] [place] [address] POINT OF CARE [facility] CNOVon 11-01-2023 CNOV Office Visit (ORMDNA ) ----- BONNIE MARTINEZ ([id number]) 1955 M Date Time Provider Department 11/01/23 [...] pain with impingement testing. + pain with MILLEI and FADIR testing. + tenderness to palpation [...] the date of the service which included [id number] patient care, performing a medically appropriate examination, counseling and educating the patient/family/caregiver, independently interpreting results (not separately reported), and communicating results to the patient/family/caregiver. Ida Carlton MD Orthopaedic Surgery Referring Provider: JUSTINE LEARY [[id number]] Allergies As of Date: 11/01/2023 Noted Allergy Reaction ERYTHROMYCIN BASE 09/21/2008 8 - GI Upset Date Reviewed: 11/01/2023 Reviewed by: Tiff Fuentes OCCA - Fully Assessed Reason for Visit: New [327862] Pain [78] New [896743] Pain [78] Visit Diagnosis:Bilateral hip pain [M25.551, M25.552] Order(s):CONSULT TO ORTHOPAEDICS [9026] Order #: [id number]: 1 Prescriptions as of 11/01/2023 - tamsulosin [...] Encounter Status:Closed by PREMAPERCYIDA on 11/01/[address] [facility] [address] Abdomen and Pelvis WO con traston 10-31-2023 IMPRESSION: Nonobstructing bilateral renal calculi. Hepatic steatosis. Colonic diverticulosis. Wheel Fitter: DEVANG Transcribe Date/Time: Oct 31 2023 1:30P Dictated by : JEANNETTE TUCKER MD This examination was interpreted and the report reviewed and electronically signed by: JEANNETTE TUCKER MD on Oct 31 2023 1:39PM [facility] DIVISION OF RADIOLOGY * * *Final Report* * * DATE OF EXAM: Oct 30 2023 11:53AM [facility] 0529 - CT FLANK WO IVCON / [...] No additional findings. DIVISION OF RADIOLOGY Provider, [facility] - 10/31/2023 * * *Final Report* * * DATE OF EXAM: Oct 30 2023 11:53AM [facility] 0529 - CT FLANK WO IVCON / [...] bilateral renal calculi. Hepatic steatosis. Colonic diverticulosis. Wheel Fitter: PSCB Transcribe Date/Time: Oct 31 2023 1:30P Dictated by : JEANNETTE TUCKER MD This examination was interpreted and the report reviewed and electronically signed by: JEANNETTE TUCKER MD on Oct 31 2023 1:39PM EST [facility] CT Abdomen and Pelvis WO con trastOrdered By: Ccf Provider on 10-31-[address] [facility] [address] Abdomen and Pelvis WO con traston 10-30-2023 Radiology Study observation (narrative) [facility] CT FLANK WO IVCONon 10-30-[address] FLANK WO IVCON * * *Final Report* * * DATE OF EXAM: Oct 30 2023 11:53AM [facility] 0529 - CT FLANK WO IVCON / [...] bilateral renal calculi. Hepatic steatosis. Colonic diverticulosis. Wheel Fitter: [facility] Transcribe Date/Time: Oct 31 2023 1:30P Dictated by : JEANNETTE TUCKER MD This examination was interpreted and the report reviewed and electronically signed by: JEANNETTE TUCKER MD on Oct 31 2023 1:39PM EST [id number] Normal [facility] XR ABDOMEN 1V SUPINEon 10-29 XR [...] acute osseous abnormalities. IMPRESSION: Bilateral renal calculi Wheel Fitter: [facility] Transcribe Date/Time: Nov 02 2023 10:25A Dictated by : SHELIA HIGGINS MD This examination was interpreted and the report reviewed and electronically signed by: SHELIA HIGGINS MD on Nov 02 2023 10:27AM EST [id number] Normal [facility] CNOVon 10-25-2023 CNOV Office Visit (AKURFL ) ----- BONNIE MARTINEZ ([id number]) 1955 M Date Time Provider Department 10/25/23 [...] (no units) Date Value 10/02/2023 Negative Specific [place], Ur (no units) Date Value 10/02/2023 1.013 [...] Edwards Jr, MD Referring Provider: JUSTINE LEARY [[id number]] Allergies As of Date: 10/25/2023 Noted Allergy Reaction ERYTHROMYCIN BASE 09/21/2008 8 - GI Upset Date Reviewed: 10/25/2023 Reviewed by: Patrice Edwards Jr., MD - Fully Assessed Reason for Visit: Elevated PSA [3906] Kidney Stones [67236] Primary Visit Diagnosis:Kidney stone [N20.0] Other Visit Diagnoses:Elevated PSA [R97.20] Flank pain [R10.9] Encounter for observation for other suspected diseases and conditions ruled out [Z03.89] Order(s):CONSULT TO UROLOGY [9041] Order #: [id number]: 1 UA DIP, URINE (POC) [6240088] Order #: [id number]. #:[id number] 48-LAB CT FLANK WO IVCON [3502673] Order #: [id number] FUTURE MRI PROSTATE WO/W IVCON [7827498] Order #: [id number] FUTURE iv contrast (will be provided with radiology test)MRI Prostate Inject, intravenously, once for 1 dose. No IV access, insert saline lock prior to the beginning of sedation, infusion, injection of imaging exam. Discontinue saline lock post exam. If Pt. has (more content not included)... Normal [facility] UA DIP, URINE (POC)on 2023 BILIRUBIN UA (POCT) Negative Negative [facility] CLARITY UA (POCT) Clear [facility] COLOR UA (POCT) Yellow [facility] GLUCOSE UA (POCT) Negative Negative mg/dL [facility] Hemoglobin Ql (U) Small Abnormal Negative [facility] Interpretation and review of laboratory results Abnormal [facility] KETONE UA (POCT) Negative Negative mg/dL [facility] LEUKOCYTES UA (POCT) Negative Negative [facility] NITRITE UA (POCT) Negative Negative [facility] PH UA (POCT) 6.5 4.5 - 8.0 [facility] Protein Ql (U) Negative Negative mg/dL [facility] SPECIFIC GRAVITY UA (POCT) 1.020 1.005 - 1.030 [facility] UROBILINOGEN UA (POCT) 0.2 Normal E.U./dL [facility] Location:[facility], [address] [place] [address], [place], [place], [id number] [place] [address] POINT OF CARE [facility] Aishwarya 10-18-2023 [place] Telephone (FAMPWS) ----- JUANBONNIE ([id number]) 1955 M Date Time Provider Department 10/18/23 [facility] During your visit today, we recorded the following information about you: Justine Leary APRN.HELPER TEACHER 10/18/2023 1:27 PM Signed Can you please [...] provider's message below and patient verbalized understanding. Eoduard Vivas RN Allergies As of Date: 10/18/2023 [...] Status:Closed by NILDA VIVAS on 10/18/23 [facility] US KIDNEY/BLADDERon 10-15-19 US KIDNEY/BLADDER * [...] Nephrolithiasis Small postvoid residual urinary bladder volume Wheel Fitter: DEVANG Transcribe Date/Time: Oct 16 2023 10:37A Dictated by : MARGARET PALAFOX MD This examination was interpreted and the report reviewed and electronically signed by: MARGARET PALAFOX MD on Oct 16 2023 10:43AM EST [id number] Normal [facility] ----- BONNIE MARTINEZ ([id number]) 1955 M Date Time Provider Department 10/03/23 JUSTINE LEARY [facility] During your visit today, we recorded [...] [R97.20] Order(s):CONSULT TO UROLOGY [9041] Order #: [id number]: 1 FUTURE Meds Comments as of 03/15/2018: [...] Status:Closed by JUSTINE LEARY on 10/03/23 [facility] Bacteria Ur Culton Bacteria identified Cx Nom (U) CULTURE, URINE: No growth (<1,000 CFU/ml) [facility] Comment on above: Performed By: #### 6 30-4 ####[facility] LABCLIA [id number] [place] [address] [place] CBC W Auto Differential pane l (Bld)on 10-02-2023 Basophils (Bld) [#/Vol] 0.06 10*3/uL [place] Basophils/100 WBC (Bld) 0.7 % [facility] Differential cell count method Nom (Bld) Auto [facility] Eosinophils (Bld) [#/Vol] 0.24 10*3/uL [place] Eosinophils/100 WBC (Bld) 2.8 % [facility] Erythrocyte distribution width (RBC) [Ratio] 12.5 % 11.5 - 15.0 % [facility] Hematocrit (Bld) [Volume fraction] 40.2 % 39.0 - 51.0 % [facility] Hemoglobin (Bld) [Mass/Vol] 13.2 g/dL 13.0 - 17.0 g/dL [facility] Immature granulocytes (Bld) [#/Vol] 0.03 10*3/uL [facility] Immature granulocytes/100 WBC (Bld) 0.4 % [facility] Interpretation and review of laboratory results Abnormal [facility] Lymphocytes (Bld) [#/Vol] 1.49 10*3/uL [facility] Lymphocytes/100 WBC (Bld) 17.6 % [facility] MCH (RBC) [Entitic mass] 29.5 pg 26.0 - 34.0 pg [facility] MCHC (RBC) [Mass/Vol] 32.8 g/dL 30.5 - 36.0 g/dL [facility] MCV (RBC) [Entitic vol] 89.7 fL 80.0 - 100.0 fL [facility] Monocytes (Bld) [#/Vol] 1.29 10*3/uL [place] Monocytes/100 WBC (Bld) 15.3 % [facility] Neutrophils (Bld) [#/Vol] 5.34 10*3/uL [facility] Neutrophils/100 WBC (Bld) 63.2 % [facility] Nucleated RBC (Bld) [#/Vol] [facility] Nucleated RBC/100 WBC (Bld) [Ratio] 0.0 % /100 WBC [facility] Platelet mean volume (Bld) [Entitic vol] 10.6 fL 9.0 - 12.7 fL [facility] Platelets (Bld) [#/Vol] 270 10*3/uL [facility] RBC (Bld) [#/Vol] 4.48 10*6/uL 4.20 - 6.00 m/uL [facility] WBC (Bld) [#/Vol] 8.45 10*3/uL [facility] Basophils (Bld) [#/Vol] 0.06 10*3/uL Normal <0.11 [facility] Comment on above: Order Comment: Speci men Type: BLOOD SPECIMENOrdering Facility: [facility] Address: [address] [place] [address] Performed By: #### 5 7021-8 ####[facility] [id number] [place] [address] [place] Basophils/100 WBC (Bld) 0.7 % [facility] Comment on above: Order Comment: Speci men Type: BLOOD SPECIMENOrdering Facility: [facility] Address: [address] [place] [address] Performed By: #### 5 7021-8 ####[facility] [id number] [place] [address] [place] Differential cell count method Nom (Bld) Auto Normal [facility] Comment on above: Order Comment: Speci men Type: BLOOD SPECIMENOrdering Facility: [facility] Address: [address] [place] [address] Performed By: #### 5 7021-8 ####[facility] [id number] [place] [address] [place] Eosinophils (Bld) [#/Vol] 0.24 10*3/uL Normal <0.46 [facility] Comment on above: Order Comment: Speci men Type: BLOOD SPECIMENOrdering Facility: [facility] Address: [address] [place] [address] Performed By: #### 5 7021-8 ####[facility] [id number] [place] [address] [place] Eosinophils/100 WBC (Bld) 2.8 % Normal [facility] Comment on above: Order Comment: Speci men Type: BLOOD SPECIMENOrdering Facility: [facility] Address: [address] [place] [address] Performed By: #### 5 7021-8 ####[facility] [id number] [place] [address] [place] Erythrocyte distribution width (RBC) [Ratio] 12.5 % Normal 11.5-15.0 [facility] Comment on above: Order Comment: Speci men Type: BLOOD SPECIMENOrdering Facility: [facility] Address: [address] [place] [address] Performed By: #### 5 7021-8 ####[facility] [id number] [place] [address] [place] Hematocrit (Bld) [Volume fraction] 40.2 % Normal 39.0-51.0 [facility] Comment on above: Order Comment: Speci men Type: BLOOD SPECIMENOrdering Facility: [facility] Address: [address] [place] [address] Performed By: #### 5 7021-8 ####[facility] [id number] [place] [address] [place] Hemoglobin (Bld) [Mass/Vol] 13.2 g/dL Normal 13.0-17.0 [facility] Comment on above: Order Comment: Speci men Type: BLOOD SPECIMENOrdering Facility: [facility] Address: [address] [place] [address] Performed By: #### 5 7021-8 ####[facility] LABIA [id number] [place] [address] [place] Immature granulocytes (Bld) [#/Vol] 0.03 10*3/uL Normal <0.10 [facility] Comment on above: Order Comment: Speci men Type: BLOOD SPECIMENOrdering Facility: [facility] Address: [address] [place] [address] Performed By: #### 5 7021-8 ####[facility] [id number] [place] [address] [place] Immature granulocytes/100 WBC (Bld) 0.4 % Normal [facility] Comment on above: Order Comment: Speci men Type: BLOOD SPECIMENOrdering Facility: [facility] Address: [address] [place] [address] Performed By: #### 5 7021-8 ####[facility] LABIA [id number] [place] [address] [place] Lymphocytes (Bld) [#/Vol] 1.49 10*3/uL Normal 1.00-4.00 [facility] Comment on above: Order Comment: Speci men Type: BLOOD SPECIMENOrdering Facility: [facility] Address: [address] [place] [address] Performed By: #### 5 7021-8 ####[facility] LABIA [id number] [place] [address] [place] Lymphocytes/100 WBC (Bld) 17.6 % Normal [facility] Comment on above: Order Comment: Speci men Type: BLOOD SPECIMENOrdering Facility: [facility] Address: [address] [place] [address] Performed By: #### 5 7021-8 ####[facility] LABIA [id number] [place] [address] [place] MCH (RBC) [Entitic mass] 29.5 pg Normal 26.0-34.0 [facility] Comment on above: Order Comment: Speci men Type: BLOOD SPECIMENOrdering Facility: [facility] Address: [address] [place] [address] Performed By: #### 5 7021-8 ####[facility] LABIA [id number] [place] [address] [place] MCHC (RBC) [Mass/Vol] 32.8 g/dL Normal 30.5-36.[address] [facility] Comment on above: Order Comment: Speci men Type: BLOOD SPECIMENOrdering Facility: [facility] Address: [address] [place] [address] Performed By: #### 5 7021-8 ####[facility] [id number] [place] [address] [place] MCV (RBC) [Entitic vol] 89.7 fL Normal 80.0-100.0 [facility] Comment on above: Order Comment: Speci men Type: BLOOD SPECIMENOrdering Facility: [facility] Address: [address] [place] [address] Performed By: #### 5 7021-8 ####[facility] [id number] [place] [address] [place] Monocytes (Bld) [#/Vol] 1.29 10*3/uL High <0.87 [facility] Comment on above: Order Comment: Speci men Type: BLOOD SPECIMENOrdering Facility: [facility] Address: [address] [place] [address] Performed By: #### 5 7021-8 ####[facility] [id number] [place] [address] [place] Monocytes/100 WBC (Bld) 15.3 % Normal [facility] Comment on above: Order Comment: Speci men Type: BLOOD SPECIMENOrdering Facility: [facility] Address: [address] [place] [address] Performed By: #### 5 7021-8 ####[facility] [id number] [place] [address] [place] Neutrophils (Bld) [#/Vol] 5.34 10*3/uL Normal 1.45-7.50 [facility] Comment on above: Order Comment: Speci men Type: BLOOD SPECIMENOrdering Facility: [facility] Address: [address] [place] [address] Performed By: #### 5 7021-8 ####[facility] [id number] [place] [address] [place] Neutrophils/100 WBC (Bld) 63.2 % Normal [facility] Comment on above: Order Comment: Speci men Type: BLOOD SPECIMENOrdering Facility: [facility] Address: [address] [place] [address] Performed By: #### 5 7021-8 ####[facility] LABIA [id number] [place] [address] [place] Nucleated RBC (Bld) [#/Vol] 10*3/uL Normal <0.01 [facility] Comment on above: Order Comment: Speci men Type: BLOOD SPECIMENOrdering Facility: [facility] Address: [address] [place] [address] Performed By: #### 5 7021-8 ####[facility] LABIA [id number] [place] [address] [place] Nucleated RBC/100 WBC (Bld) [Ratio] 0.0 /100 WBC Normal [facility] Comment on above: Order Comment: Speci men Type: BLOOD SPECIMENOrdering Facility: [facility] Address: [address] [place] [address] Performed By: #### 5 7021-8 ####[facility] [id number] [place] [address] [place] Platelet mean volume (Bld) [Entitic vol] 10.6 fL Normal 9.0-12.7 [facility] Comment on above: Order Comment: Speci men Type: BLOOD SPECIMENOrdering Facility: [facility] Address: [address] [place] [address] Performed By: #### 5 7021-8 ####[facility] [id number] [place] [address] [place] Platelets (Bld) [#/Vol] 270 10*3/uL Normal 150-400 [facility] Comment on above: Order Comment: Speci men Type: BLOOD SPECIMENOrdering Facility: [facility] Address: [address] [place] [address] Performed By: #### 5 7021-8 ####[facility] [id number] [place] [address] [place] RBC (Bld) [#/Vol] 4.48 10*6/uL Normal 4.20-6.00 [facility] Comment on above: Order Comment: Speci men Type: BLOOD SPECIMENOrdering Facility: [facility] Address: [address] [place] [address] Performed By: #### 5 7021-8 ####[facility] [id number] [place] [address] [place] WBC (Bld) [#/Vol] 8.45 10*3/uL Normal 3.70-11.00 [facility] Comment on above: Order Comment: Speci men Type: BLOOD SPECIMENOrdering Facility: [facility] Address: [address] [place] [address] Performed By: #### 5 7021-8 ####[facility] [id number] [address] [place] CNOVon 10-02-2023 [facility] ----- BONNIE MARTINEZ ([id number]) 1955 M Date Time Provider Department 10/02/23 10:00 AM [facility] During your visit today, we recorded the [...] HISTORY OF Comment: right 4th and 5th injury-[facility] 1985: PAST SURGICAL HISTORY OF; Right [...] discussed and patient voices understanding. Justine Leary APRN.HELPER TEACHER This note was partially generated using [employer] recognition system. Note was (more content not included)... Normal [facility] metabolic 2000 panelon 10-02-2023 Albumin [Mass/Vol] 4.1 g/dL 3.9 - 4.9 g/dL [facility] ALP [Catalytic activity/Vol] 64 U/L 38 - 113 U/L [facility] ALT [Catalytic activity/Vol] 20 U/L 10 - 54 U/L [facility] Anion gap [Moles/Vol] 12 mmol/L 8 - 15 mmol/L [facility] AST [Catalytic activity/Vol] 22 U/L 14 - 40 U/L [facility] Bilirubin [Mass/Vol] 0.4 mg/dL 0.2 - 1 .3 mg/dL [facility] Calcium [Mass/Vol] 9.7 mg/dL 8.5 - 10. 2 mg/dL [facility] Chloride [Moles/Vol] 101 mmol/L 98 - 10 7 mmol/L [facility] CO2 [Moles/Vol] 23 mmol/L 22 - 30 mmol/L [facility] Creatinine [Mass/Vol] 1.25 mg/dL High 0.73 - 1.22 mg/dL [facility] GFR/1.73 sq M.predicted among non-blacks MDRD (S/P/Bld) [Vol rate/Area] 64 mL/min/{1.73_m2} - PINF [facility] Comment on above: Estimated Glomerular Filtration [...] 109 mg/dL High 74 - 99 mg/dL [facility] Comment on above: The [place] Diabete s Association (ADA) provides guidance for [...] Standards of Medical Care in Diabetes 2016, [place] Diabetes Association. Diabetes Care. 2016.39(Suppl 1). Interpretation and review of laboratory results Abnormal [facility] Potassium [Moles/Vol] 4.3 mmol/L 3.7 - 5.1 mmol/L [facility] Protein [Mass/Vol] 8.5 g/dL High 6.3 - 8.0 g/dL [facility] Sodium [Moles/Vol] 136 mmol/L 136 - 144 mmol/L [facility] Urea nitrogen [Mass/Vol] 14 mg/dL 9 - 24 mg/dL [facility] Albumin [Mass/Vol] 4.1 g/dL Normal 3.9-4.9 [facility] Comment on above: Order Comment: Speci men Type: BLOOD SPECIMENOrdering Facility: [facility] Address: [address] [place] [address] Performed By: #### 1 0886-0, 71239-1 ####[facility] [id number] [place] [address] [place] ALP [Catalytic activity/Vol] 64 U/L Normal 38-113 [facility] Comment on above: Order Comment: Speci men Type: BLOOD SPECIMENOrdering Facility: [facility] Address: [address] [place] [address] Performed By: #### 1 0886-0, 68251-9 ####[facility] [id number] [place] [address] [place] ALT [Catalytic activity/Vol] 20 U/L Normal 10-54 [facility] Comment on above: Order Comment: Speci men Type: BLOOD SPECIMENOrdering Facility: [facility] Address: [address] [place] [address] Performed By: #### 1 0886-0, 79504-6 ####[facility] [id number] [place] [address] [place] Anion gap [Moles/Vol] 12 mmol/L Normal 8-[address] [facility] Comment on above: Order Comment: Speci men Type: BLOOD SPECIMENOrdering Facility: [facility] Address: [address] [place] [address] Performed By: #### 1 0886-0, 60432-6 ####[facility] [id number] [place] [address] [place] AST [Catalytic activity/Vol] 22 U/L Normal 14-40 [facility] Comment on above: Order Comment: Speci men Type: BLOOD SPECIMENOrdering Facility: [facility] Address: [address] [place] [address] Performed By: #### 1 0886-0, ####[facility] [id number] [place] [address] [place] Bilirubin [Mass/Vol] 0.4 mg/dL Normal 0.2-1.3 [facility] Comment on above: Order Comment: Speci men Type: BLOOD SPECIMENOrdering Facility: [facility] Address: [address] [place] [address] Performed By: #### 1 0886-0, ####[facility] [id number] [place] [address] [place] Calcium [Mass/Vol] 9.7 mg/dL Normal 8.5-10.2 [facility] Comment on above: Order Comment: Speci men Type: BLOOD SPECIMENOrdering Facility: [facility] Address: [address] [place] [address] Performed By: #### 1 0886-0, ####[facility] [id number] [place] [address] [place] Chloride [Moles/Vol] 101 mmol/L Normal 98-107 [facility] Comment on above: Order Comment: Speci men Type: BLOOD SPECIMENOrdering Facility: [facility] Address: [address] [place] [address] Performed By: #### 1 0886-0, ####[facility] [id number] [place] [address] [place] CO2 [Moles/Vol] 23 mmol/L Normal 22-30 [facility] Comment on above: Order Comment: Speci men Type: BLOOD SPECIMENOrdering Facility: [facility] Address: [address] [place] [address] Performed By: #### 1 0886-0, 59729-8 ####[facility] [id number] [place] [address] [place] Creatinine [Mass/Vol] 1.25 mg/dL High 0.73-1.[address] [facility] Comment on above: Order Comment: Speci men Type: BLOOD SPECIMENOrdering Facility: [facility] Address: [address] [place] [address] Performed By: #### 1 0886-0, 31412-1 ####[facility] [id number] [place] [address] [place] Creatinine and Glomerular filtration rate.predicted panel (S/P/Bld) 64 mL/min/1.73m??? Normal >=60 [facility] Comment on above: Order Comment: Speci men Type: BLOOD SPECIMENOrdering Facility: [facility] Address: [address] [place] [address] Result Comment: Yue mated Glomerular Filtration Rate [...] actual GFR. Performed By: #### 1 0886-0, 20194-2 ####[facility] [id number] [place] [address] [place] Glucose [Mass/Vol] 109 mg/dL High 74-99 [facility] Comment on above: Order Comment: Speci men Type: BLOOD SPECIMENOrdering Facility: [facility] Address: [address] [place] [address] Result Comment: The [place] Diabetes Association (ADA) provides guidance for cutoff [...] Standards of Medical Care in Diabetes 2016, [place] Diabetes Association. Diabetes Care. 2016.39(Suppl 1). Performed By: #### 1 0886-0, 04273-2 ####[facility] [id number] [place] [address] [place] Potassium [Moles/Vol] 4.3 mmol/L Normal 3.7-5.[address] [facility] Comment on above: Order Comment: Speci men Type: BLOOD SPECIMENOrdering Facility: [facility] Address: [address] [place] [address] Performed By: #### 1 0886-0, 74604-1 ####[facility] [id number] [place] [address] [place] Protein [Mass/Vol] 8.5 g/dL High 6.3-8.0 [facility] Comment on above: Order Comment: Speci men Type: BLOOD SPECIMENOrdering Facility: [facility] Address: [address] [place] [address] Performed By: #### 1 0886-0, ####[facility] [id number] [place] [address] [place] Sodium [Moles/Vol] 136 mmol/L Normal 136-144 [facility] Comment on above: Order Comment: Speci men Type: BLOOD SPECIMENOrdering Facility: [facility] Address: [address] [place] [id number] Performed By: #### 1 0886-0, 53635-1 ####[facility] [id number] [place] [id number] [place] Urea nitrogen [Mass/Vol] 14 mg/dL Normal 9-24 [facility] Comment on above: Order Comment: Speci men Type: BLOOD SPECIMENOrdering Facility: [facility] Address: [address] [place] [id number] Performed By: #### 1 0886-0, 49130-7 ####[facility] [id number] [place] [id number] [place] Free PSA [Mass/Vol]on 2023 Free PSA/Total PSA [Mass fraction] 17 % [facility] Comment on above: Total and free [...] Interpretation and review of laboratory results Abnormal [facility] Prostate specific Ag [Mass/Vol] 7.55 ng/mL High NINF - 2.60 ng/mL [facility] Comment on above: Total PSA test [...] Specific Antigen. N Engl J Med 2003,349:335-42. [facility] Free PSA/Total PSA [Mass fraction] 17 % Normal [facility] Comment on above: Order Comment: Speci men Type: BLOOD SPECIMENOrdering Facility: [facility] Address: [address] [place] [address] Result Comment: Tota l and free PSA [...] 12.2% 15.8% Performed By: #### 1 0886-0, 33902-0 ####[facility] [id number] [place] [address] [place] Prostate specific Ag [Mass/Vol] 7.55 ng/mL High <2.60 [facility] Comment on above: Order Comment: Speci men Type: BLOOD SPECIMENOrdering Facility: [facility] Address: [address] [place] [address] Result Comment: Tota l PSA test methodology [...] Med 2003,349:335-42. Performed By: #### 1 0886-0, 72299-3 ####[facility] [id number] [place] [address] [place] UA DIP, URINE (POC)on 2023 BILIRUBIN UA (POCT) Negative Negative [facility] CLARITY UA (POCT) Clear [facility] COLOR UA (POCT) Yellow [facility] GLUCOSE UA (POCT) Negative Negative mg/dL [facility] Hemoglobin Ql (U) Trace-lysed Abnormal Negative [facility] Interpretation and review of laboratory results Abnormal [facility] KETONE UA (POCT) Negative Negative mg/dL [facility] LEUKOCYTES UA (POCT) Negative Negative [facility] NITRITE UA (POCT) Negative Negative [facility] PH UA (POCT) 6.0 4.5 - 8.0 [facility] Protein Ql (U) Negative Negative mg/dL [facility] SPECIFIC GRAVITY UA (POCT) 1.015 1.005 - 1.030 [facility] UROBILINOGEN UA (POCT) 0.2 Normal E.U./dL [facility] Location:[address], [place], [place], [address] [place] [address] POINT OF CARE [facility] Urinalysis complete panel (U )on 10-02-2023 Bacteria LM.HPF (Urine sed) [#/Area] Negative Normal Negative [facility] Comment on above: Order Comment: Speci men Type: URINE SPECIMENOrdering Facility: [facility] Address: [address] [place] [address] Performed By: #### 2 4356-8 ####[facility] [id number] [place] [address] [place] Bilirubin Ql (U) Negative Normal Negative [facility] Comment on above: Order Comment: Speci men Type: URINE SPECIMENOrdering Facility: [facility] Address: [address] [place] [address] Performed By: #### 2 4356-8 ####[facility] [id number] [place] [address] [place] Clarity (Unsp spec) Clear Normal Clear [facility] Comment on above: Order Comment: Speci men Type: URINE SPECIMENOrdering Facility: [facility] Address: [address] [place] [address] Performed By: #### 2 4356-8 ####[facility] [id number] [place] [address] [place] Color (U) Yellow Normal Yellow [facility] Comment on above: Order Comment: Speci men Type: URINE SPECIMENOrdering Facility: [facility] Address: [address] [place] [address] Performed By: #### 2 4356-8 ####[facility] [id number] [place] [address] [place] Epithelial cells LM.HPF (Urine sed) [#/Area] None Seen Normal [facility] Comment on above: Order Comment: Speci men Type: URINE SPECIMENOrdering Facility: [facility] Address: [address] [place] [address] Performed By: #### 2 4356-8 ####[facility] [id number] [place] [address] [place] Glucose Test strip (U) [Mass/Vol] Negative Normal Negative [facility] Comment on above: Order Comment: Speci men Type: URINE SPECIMENOrdering Facility: [facility] Address: [address] [place] [address] Performed By: #### 2 4356-8 ####[facility] [id number] [place] [address] [place] Hemoglobin Ql (U) Negative Normal Negative [facility] Comment on above: Order Comment: Speci men Type: URINE SPECIMENOrdering Facility: [facility] Address: [address] [place] [address] Performed By: #### 2 4356-8 ####[facility] [id number] [place] [address] [place] Hyaline casts (Urine sed) [#/Area] 0 /[LPF] Normal 0 /LPF [facility] Comment on above: Order Comment: Speci men Type: URINE SPECIMENOrdering Facility: [facility] Address: [address] [place] [address] Performed By: #### 2 4356-8 ####[facility] [id number] [place] [address] [place] Ketones Ql (U) Negative Normal Negative [facility] Comment on above: Order Comment: Speci men Type: URINE SPECIMENOrdering Facility: [facility] Address: [address] [place] [address] Performed By: #### 2 4356-8 ####[facility] [id number] [place] [address] [place] Leukocyte esterase Test strip Ql (U) Negative Normal Negative [facility] Comment on above: Order Comment: Speci men Type: URINE SPECIMENOrdering Facility: [facility] Address: [address] [place] [address] Performed By: #### 2 4356-8 ####[facility] [id number] [place] [address] [place] Nitrite Ql (U) Negative Normal Negative [facility] Comment on above: Order Comment: Speci men Type: URINE SPECIMENOrdering Facility: [facility] Address: [address] [place] [address] Performed By: #### 2 4356-8 ####[facility] [id number] [place] [address] [place] pH (U) 6.0 [pH] Normal <8.5 [facility] Comment on above: Order Comment: Speci men Type: URINE SPECIMENOrdering Facility: [facility] Address: [address] [place] [address] Performed By: #### 2 4356-8 ####[facility] [id number] [place] [address] [place] Protein (U) [Mass/Vol] Negative Normal Negative [facility] Comment on above: Order Comment: Speci men Type: URINE SPECIMENOrdering Facility: [facility] Address: [address] [place] [address] Performed By: #### 2 4356-8 ####[facility] [id number] [place] [address] [place] RBC LM.HPF (Urine sed) [#/Area] 0-2 /HPF Normal 0-2 /HPF [facility] Comment on above: Order Comment: Speci men Type: URINE SPECIMENOrdering Facility: [facility] Address: [address] [place] [address] Performed By: #### 2 4356-8 ####[facility] [id number] [place] [address] [place] Specific gravity (U) [Rel density] 1.013 Normal 1.005-1.03 0 [facility] Comment on above: Order Comment: Speci men Type: URINE SPECIMENOrdering Facility: [facility] Address: [address] [place] [address] Performed By: #### 2 4356-8 ####[facility] [id number] [place] [address] [place] Urobilinogen Ql (U) 0.2 EU/dL Normal 0.2-1.0 EU/dL [facility] Comment on above: Order Comment: Speci men Type: URINE SPECIMENOrdering Facility: [facility] Address: [address] [place] [address] Performed By: #### 2 4356-8 ####[facility] [id number] [place] [address] [place] WBC LM.HPF (Urine sed) [#/Area] 0-5 /HPF Normal 0-5 /HPF [facility] Comment on above: Order Comment: Speci men Type: URINE SPECIMENOrdering Facility: [facility] Address: [address] [place] [address] Performed By: #### 2 4356-8 ####[facility] [id number] [place] [address] [place] [facility] ----- BONNIE MARTINEZ ([id number]) 1955 M Date Time Provider Department 09/17/23 [facility] During your visit today, we recorded the following information about you: Justine Leary APRN.HELPER TEACHER 09/17/2023 7:07 AM Signed Can you please [...] Encounter Status:Closed by JESSE GONZALEZ on 09/17/23 [facility] ----- BONNIE MARTINEZ ([id number]) 1955 M Date Time Provider Department 09/14/23 JUSTINE LEARY During your visit today, we recorded the following information about you: Justine Leary APRN.HELPER TEACHER 09/14/2023 7:56 AM Signed Can you please call the patient and let him know that I reviewed his knee x-ray results. X-ray showed no fractures, there was bilateral anterior tibial tuberosity enthesophytes, this is consistent with Wheeler slaughters disease. This is usually seen with children but can affect adults as well. We treat this with RICE therapy, rest, ice, compression, elevation. NSAIDs are used to reduce inflammation, he may use kmtn-[id number] or consider taking a once a day [...] Status:Closed by JESSE GONZALEZ on 09/14/23 Normal [facility] XR HIP BILATERAL 5V PEL/AP/L AT EACH HIPon 09-14-2023 IMPRESSION: Mild degenerative changes at the hips with no acute fractures seen Wheel Fitter[facility] Transcribe Date/Time: Sep 14 2023 7:10P Dictated by : MIRACLE VARGAS MD This examination was interpreted and the report reviewed and electronically signed by: MIRACLE VARGAS MD on Sep 14 2023 7:11PM [facility] DIVISION OF RADIOLOGY * * *Final [...] the hips with no acute fractures seen Wheel F[facility] Transcribe Date/Time: Sep 14 2023 7:10P Dictated by : MIRACLE VARGAS MD This examination was interpreted and the report reviewed and electronically signed by: MIRACLE VARGAS MD on Sep 14 2023 7:11PM EST [facility] XR Knee - bilateral 4 Viewso n 09-13-2023 IMPRESSION: No acute osseous abnormality. Wheel Fitter: [facility] Transcribe Date/Time: Sep 13 2023 8:04P Dictated by : OTIS MONTENEGRO DO This examination was interpreted and the report reviewed and electronically signed by: OTIS MONTENEGRO DO on Sep 13 2023 8:06PM [facility] DIVISION OF RADIOLOGY * * *Final [...] tibial tuberosity enthesophytes. DIVISION OF RADIOLOGY Provider, [facility] * * *Final Report* [...] enthesophytes. IMPRESSION IMPRESSION: No acute osseous abnormality. 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 Nontender with palpation, no edema noted. [...] voices unders (more content not included)... Normal [facility] No Panel Informationon 09-11 Radiology Study observation (narrative) [facility] XR HIP ROSEY 5V PEL+ AP/LAT [...] the hips with no acute fractures seen Wheel Fitter: [facility] Transcribe Date/Time: Sep 14 2023 7:10P Dictated by : MIRACLE VARGAS MD This examination was interpreted and the report reviewed and electronically signed by: MIRACLE VARGAS MD on Sep 14 2023 7:11PM EST [id number] [facility] XR KNEE 4V AP/PA/LAT/MERCH B [facility] 09-12-2023 XR KNEE 4V AP/PA/LAT/MERCH ROSEY * [...] tuberosity enthesophytes. IMPRESSION: No acute osseous abnormality. Wheel Fitter: [facility] Transcribe Date/Time: Sep 13 2023 8:04P Dictated by : OTIS MONTENEGRO DO This examination was interpreted and the report reviewed and electronically signed by: OTIS MONTENEGRO DO on Sep 13 2023 8:06PM EST [id number] [facility] CNTHERAPYon 04-12-2023 CNTHERAPY OT/PT/Speech Visit ( PTWS) ----- BONNIE MARTINEZ ([id number]) 1955 M Date Time Provider Department 04/12/23 9:30 AM JOLENE ROMERO PTWS Date Time Provider Department Center 04/12/2023 9:30 AM [id number], MARIAH PTWS [place] Reason for Visit: [...] - uses OTC Sleep-Aid nightly (Benadryl) ----- Outside Physical Damage Appraiser: Addendum Therapy (PT/OT/Speech/Resp) ID: [id number] 04/12/2023 9:58 AM Author: JOLENE ROMERO Signed by JOLENE ROMERO PTA on 04/12/2023 at 9:58 AM * * * This document replaces document [id number] * * * Document text: Program_ID:[id number] Access Code: [email or web address] URL: [email or web address] Date: 04-12-2023 Prepared By: Bel Renee Program [...] - 2 sets - 10 reps Normal [facility] THERAPY NTon 04-12-2023 THERAPY NT HNO ID: [id number] Author: JOLENE ROMERO PTA Service: ? Author Type: Personal Care Attendant Type: Therapy (PT/OT/Speech/Resp) Filed: 04/12/2023 09:38 Note Text: Program_ID:[id number] Access Code: [email or web address] URL: [email or web address] Date: 04-12-2023 Prepared By: Bel Renee Program [...] - 1 sets - 3 reps Normal [facility] CNTHERAPYon 04-10-2023 CNTHERAPY OT/PT/Speech Visit ( PTWS) ----- BONNIE MARTINEZ ([id number]) 1955 M Date Time Provider Department 04/10/23 3:00 PM BEL RENEE Date Time Provider Department Center 04/10/2023 3:00 PM [id number] RENEE [place] Reason for Visit: Physical [...] - uses OTC Sleep-Aid nightly (Benadryl) ----- Outside Physical Damage Appraiser: Addendum Therapy (PT/OT/Speech/Resp) ID: [id number] 04/10/2023 3:22 PM Author: BEL RENEE Signed by BEL RENEE PT on 04/10/2023 at 3:22 PM * * * This document replaces document [id number] * * * Document text: Program_ID:[id number] Access Code: [email or web address] URL: [email or web address] Date: 04-10-2023 Prepared By: Bel Renee Program Notes Exercises - Standing Shoulder Posterior Capsule Stretch - 1-2 x daily - 7 x weekly - 3 sets - 1 reps - Doorway Pec Stretch at 60 Degrees Abduction with Arm Straight - 1-2 x daily - 7 x weekly - 3 sets - 1 reps Normal [facility] THERAPY NTon 04-10-2023 THERAPY NT HNO ID: [id number] Author: BEL RENEE PT Service: ? Author Type: Physical Therapist Type: Therapy (PT/OT/Speech/Resp) Filed: 04/10/2023 15:20 Note Text: Program_ID:[id number] Access Code: [email or web address] URL: [email or web address] Date: 04-10-2023 Prepared By: Bel Renee Program Notes Exercises - Standing Shoulder Posterior Capsule Stretch - 1-2 x daily - 7 x weekly - 3 sets - 1 reps Normal [facility] CNTHERAPYon 04-04-2023 CNTHERAPY OT/PT/Speech Visit ( PTWS) ----- BONNIE MARTINEZ ([id number]) 1955 M Date Time Provider Department 04/04/23 8:15 AM BEL RENEE Date Time Provider Department Center 04/04/2023 8:15 AM [id number] RENEE [employer] Reason for Visit: PT Eval [747] Primary [...] - uses OTC Sleep-Aid nightly (Benadryl) ----- Outside Physical Damage Appraiser: Addendum Therapy (PT/OT/Speech/Resp) ID: [id number] 04/04/2023 8:42 AM Author: BEL RENEE Signed by BEL RENEE PT on 04/04/2023 at 8:42 AM * * * This document replaces document [id number] * * * Document text: Program_ID:[id number] Access Code: [email or web address] URL: [email or web address] Date: 04-04-2023 Prepared By: Bel Renee Program Notes Exercises - Ulnar Nerve/Median [place]- Low Level - 3-5 x daily - 7 x weekly - 2 sets - 10 reps - Seated Scapular Retraction - 2-3 x daily - 7 x weekly - 3 sets - 15 reps - Doorway Pec Stretch at 60 Degrees Abduction with Arm Straight - 2-3 x daily - 7 x weekly - 3 sets - 1 reps Normal [facility] THERAPY NTon 04-04-2023 THERAPY NT HNO ID: [id number] Author: BEL RENEE PT Service: ? Author Type: Physical Therapist Type: Therapy (PT/OT/Speech/Resp) Filed: 04/04/2023 08:40 Note Text: Program_ID:[id number] Access Code: [email or web address] URL: [email or web address] Date: 04-04-2023 Prepared By: Bel O'Derrick Program Notes Exercises - Ulnar Nerve/Median [place]- Low Level - 3-5 x daily - 7 x weekly - 2 sets - 10 reps Normal [facility] CNOVon 01-15-2023 CNOV Office Visit (ORTHWS ) ----- BONNIE MARTINEZ ([id number]) 1955 M Date Time Provider Department 01/15/23 [...] Jasmina Reyes PA-C Department of Orthopaedics Orthopaedics [facility] [address] Dept: [phone] Dept January 15, 2023 Consultation requested by [...] space narrowing and bilateral neural foraminal narrowing. Wheel Fitter: [facility] Transcribe Date/Time: Nov 21 2022 11:36A Dictated by : KAYLI (more content not included)... 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 Wheel Fitter: [facility] Transcribe Date/Time: Nov 21 2022 11:36A Dictated by : JEANNETTE TUCKER MD This examination was interpreted and the report reviewed and electronically signed by: JEANNETTE TUCKER MD on Nov 21 2022 11:43AM [facility] DIVISION OF RADIOLOGY * * *Final [...] space narrowing and bilateral neural foraminal narrowing. Wheel Fitter: [facility] Transcribe Date/Time: Nov 21 2022 11:36A Dictated by : JEANNETTE TUCKER MD This examination was interpreted and the report reviewed and electronically signed by: JEANNETTE TUCKER MD on Nov 21 2022 11:43AM [facility] XR Shoulder - right 3 Viewso n 11-21-2022 IMPRESSION: No acute osseous abnormality Wheel Fitter: [facility] Transcribe Date/Time: Nov 21 2022 4:33P Dictated by : SHELIA HIGGINS MD This examination was interpreted and the report reviewed and electronically signed by: SHELIA HIGGINS MD on Nov 21 2022 4:34PM [facility] DIVISION OF RADIOLOGY * * *Final [...] are maintained. DIVISION OF RADIOLOGY [facility] * * *Final Report* [...] maintained. IMPRESSION IMPRESSION: No acute osseous abnormality Wheel Fitter: PSC[facility] Transcribe Date/Time: Nov 21 2022 4:33P Dictated by : SHELIA HIGGINS MD This examination was interpreted and the report reviewed and electronically signed by: SHELIA HIGGINS MD on Nov 21 2022 4:34PM EST [facility] XR Shoulder - right 3 ViewsO rdered By: Ccf Provider on 11-21-2022 [facility] No Panel Informationon 11-20 Radiology Study observation (narrative) [facility] CBC WITH MANUAL DIFF (13768) Ordered By: Customer Orders Clerk on 06-24-2013 Basophils (Bld) [#/Vol] 0.0 {x10E3/uL} Normal 0.0-0.2 [facility] Work Phone: Comment on above: PATIENT WAS FASTINGP ERFORMED BY: JAMA [facility] Cwjurn7884 [facility] [id number] Information: [id number] Basophils/100 WBC (Bld) 0 % Normal 0-3 [facility] Work Phone: Comment on above: PATIENT WAS FASTINGP ERFORMED BY: [address] [id number] Information: [id number] Eosinophils (Bld) [#/Vol] 0.2 {x10E3/uL} Normal 0.0-0.4 [facility] Work Phone: Comment on above: PATIENT WAS FASTINGP ERFORMED BY: [address] [id number] Information: [id number] Eosinophils/100 WBC (Bld) 3 % Normal 0-5 [facility] Work Phone: Comment on above: PATIENT WAS FASTINGP ERFORMED BY: [address] [id number] Information: [id number] Erythrocyte distribution width (RBC) [Ratio] 13.0 % Normal 12.3-15.4 [facility] Work Phone: Comment on above: PATIENT WAS FASTINGP ERFORMED BY: [address] [id number] Information: [id number],[id number] Hematocrit (Bld) [Volume fraction] 42.7 % Normal 37.5-51.0 [facility] Work Phone: Comment on above: PATIENT WAS FASTINGP ERFORMED BY: [address] [id number] Information: 115352,[id number] Hemoglobin (Bld) [Mass/Vol] 14.1 g/dL Normal 12.6-17.7 [facility] Work Phone: Comment on above: PATIENT WAS FASTINGP ERFORMED BY: [address] [id number] Information: [id number],G01726 Immature granulocytes (Bld) [#/Vol] 0.0 {x10E3/uL} Normal 0.0-0.1 [facility] Work Phone: Comment on above: PATIENT WAS FASTINGP ERFORMED BY: JAMA [facility]6370 [facility] [id number] Information: [id number],[id number] Immature granulocytes/100 WBC (Bld) 0 % Normal 0-2 [facility] Work Phone: Comment on above: PATIENT WAS FASTINGP ERFORMED BY: [address] [id number] Information: [id number],[id number] Lymphocytes (Bld) [#/Vol] 2.1 {x10E3/uL} Normal 0.7-3.1 [facility] Work Phone: Comment on above: PATIENT WAS FASTINGP ERFORMED BY: [address] [id number] Information: 257108,[id number] Lymphocytes/100 WBC (Bld) 32 % Normal 14-46 [facility] Work Phone: Comment on above: PATIENT WAS FASTINGP ERFORMED BY: [address] [id number] Information: [id number] MCH (RBC) [Entitic mass] 29.4 pg Normal 26.6-33.0 [facility] Internal Medicine Work Phone: Comment on above: PATIENT WAS FASTINGP ERFORMED BY: [address] [id number] Information: [id number],[id number] MCHC (RBC) [Mass/Vol] 33.0 g/dL Normal 31.5-35.7 [facility] Internal Medicine Work Phone: Comment on above: PATIENT WAS FASTINGP ERFORMED BY: [address] [id number] Information: [id number],[id number] MCV (RBC) [Entitic vol] 89 fL Normal 79-97 [facility] Work Phone: Comment on above: PATIENT WAS FASTINGP ERFORMED BY: [address] [place] [id number] Information: 549214,[id number] Monocytes (Bld) [#/Vol] 0.6 {x10E3/uL} Normal 0.1-0.9 [facility] Work Phone: Comment on above: PATIENT WAS FASTINGP ERFORMED BY: [facility]6370 [facility] [id number] Information: [id number],[id number] Monocytes/100 WBC (Bld) 8 % Normal 4-12 [facility] Work Phone: Comment on above: PATIENT WAS FASTINGP ERFORMED BY: [facility]6370 [facility] [id number] Information: 148698,D11611 Neutrophils (Bld) [#/Vol] 3.8 {x10E3/uL} Normal 1.4-7.0 [facility] Work Phone: Comment on above: PATIENT WAS FASTINGP ERFORMED BY: [facility]6370 [facility] [id number] Information: 800165,[id number] Neutrophils/100 WBC (Bld) 57 % Normal 40-74 [facility] Work Phone: Comment on above: PATIENT WAS FASTINGP ERFORMED BY: [facility] Kidmvb6021 [facility] [id number] Information: [id number] Platelets (Bld) [#/Vol] 228 {x10E3/uL} Normal 155-379 [facility] Work Phone: Comment on above: PATIENT WAS FASTINGP ERFORMED BY: [facility] Kfqxnp8472 [facility] [id number] Information: 569297,[id number] RBC (Bld) [#/Vol] 4.79 {x10E6/uL} Normal 4.14-5.80 [facility] Internal Medicine Work Phone: Comment on above: PATIENT WAS FASTINGP ERFORMED BY: JAMA Nogueira[address] [facility] Hospitalblin [place] [id number] Information: [id number] WBC (Bld) [#/Vol] 6.7 {x10E3/uL} Normal 3.4-10.8 [facility] Internal Medicine Work Phone: Comment on above: PATIENT WAS FASTINGP ERFORMED BY: JAMA Jiménezlin[address] [facility]in [place] [id number] Information: 457911,[id number] LIPID PANEL (10801)Ordered B y: Customer Orders Clerk on 06-24-2013 Cholesterol [Mass/Vol] 155 mg/dL Normal 100-199 [facility] Work Phone: Comment on above: PATIENT WAS FASTINGP ERFORMED BY: JAMA Jiménezlin[address] [facility]in [place] [id number] Cholesterol in HDL [Mass/Vol] 45 mg/dL Normal [facility] Work Phone: Comment on above: According to ATP-III Guidelines, HDL-C >59 mg/dL is considered anegative risk factor for CHD. PATIENT WAS FASTINGP ERFORMED BY: JAMA Teresa Jiménezlin[address] [facility]in [place] [id number] Cholesterol in LDL [Mass/Vol] 89 mg/dL Normal 0-99 [facility] Work Phone: Comment on above: PATIENT WAS FASTINGP ERFORMED BY: JAMA [facility] Boicbt[address] [facility]in [place] [id number] Cholesterol in LDL/Cholesterol in HDL [Mass ratio] 2.0 {ratio_units} Normal 0.0-3.6 [facility] Work Phone: Comment on above: PATIENT WAS FASTINGP ERFORMED BY: JAMA [facility] Slnvoz5405 [address]enez RoadDublin [place] [id number] Cholesterol in VLDL [Mass/Vol] 21 mg/dL Normal 5-40 [facility] Work Phone: Comment on above: PATIENT WAS FASTINGP ERFORMED BY: JAMA [facility] Khcghu1793 [address]enez RoadDublin [place] [id number] Triglyceride [Mass/Vol] 104 mg/dL Normal 0-149 [facility] Work Phone: Comment on above: PATIENT WAS FASTINGP ERFORMED BY: JAMA [facility] Edrbvt8002 [address] RoadDublin [place] [id number] METABOLIC PANEL, COMPREHENSI VE (88824)Ordered By: Customer Orders Clerk on 06-24-2013 Albumin [Mass/Vol] 4.5 g/dL Normal 3.5-5.5 [facility] Internal Medicine Work Phone: Comment on above: PATIENT WAS FASTINGP ERFORMED BY: JAMA [facility] Obxqvg1951 [address]enez RoadDublin [place] [id number] Albumin/Globulin [Mass ratio] 2.1 {ratio} Normal 1.1-2.5 [facility] Work Phone: Comment on above: PATIENT WAS FASTINGP ERFORMED BY: JAMA [facility] Zrblsf9430 [address]enez RoadDublin [place] [id number] ALP [Catalytic activity/Vol] 57 [iU]/L Normal 39-117 [facility] Work Phone: Comment on above: PATIENT WAS FASTINGP ERFORMED BY: JAMA [facility] Otamyc1785 [address] RoadDublin [place] [id number] ALT [Catalytic activity/Vol] 23 [iU]/L Normal 0-44 [facility] Work Phone: Comment on above: PATIENT WAS FASTINGP ERFORMED BY: JAMA [facility] Atmgba7964 [address] RoadDublin [place] [id number] AST [Catalytic activity/Vol] 20 [iU]/L Normal 0-40 [facility] Work Phone: Comment on above: PATIENT WAS FASTINGP ERFORMED BY: CB [facility] Ndsrkc7874 [address] RoadDublin [place] [id number] Bilirubin [Mass/Vol] 0.4 mg/dL Normal 0.0-1.2 [facility] Work Phone: Comment on above: PATIENT WAS FASTINGP ERFORMED BY: CB [facility] Xyofiz1646 [address] RoadDublin [place] [id number] Calcium [Mass/Vol] 9.8 mg/dL Normal 8.7-10.2 [facility] Internal Medicine Work Phone: Comment on above: PATIENT WAS FASTINGP ERFORMED BY: CB [facility] Cdddkg5689 [address] RoadDublin [place] [id number] Chloride [Moles/Vol] 103 mmol/L Normal 97-108 Comp rehensive Internal Medicine Work Phone: Comment on above: PATIENT WAS FASTINGP ERFORMED BY: CB [facility] Gtvcrb6806 [address] Roadblin [place] [id number] CO2 [Moles/Vol] 22 mmol/L Normal 19-28 [facility] Internal Medicine Work Phone: Comment on above: PATIENT WAS FASTINGP ERFORMED BY: CB [facility] Afgkjh37[address] RoadFormerly [facility] Centerin [place] [id number] Creatinine [Mass/Vol] 0.94 mg/dL Normal 0.76-1.27 [facility] Internal Medicine Work Phone: Comment on above: PATIENT WAS FASTINGP ERFORMED BY: CB [facility] Kuivqy18[address] RoadFormerly [facility] Centerin [place] [id number] GFR/1.73 sq M predicted among blacks CKD-EPI (S/P/Bld) [Vol rate/Area] 105 mL/min/1.73 Normal [facility] Work Phone: Comment on above: PATIENT WAS FASTINGP ERFORMED BY: [facility] Swwzsi9[address] RoadFormerly [facility] Centerin [place] [id number] GFR/1.73 sq M predicted among non-blacks CKD-EPI (S/P/Bld) [Vol rate/Area] 91 mL/min/1.73 Normal [facility] Work Phone: Comment on above: PATIENT WAS FASTINGP ERFORMED BY: CB [facility] Brrioh2869 [address] RoadFormerly [facility] Centerin [place] [id number] Globulin (S) [Mass/Vol] 2.1 g/dL Normal 1.5-4.5 [facility] Work Phone: Comment on above: PATIENT WAS FASTINGP ERFORMED BY: CB [facility] Urvzws5620 [address] RoadDublin [place] [id number] Glucose [Mass/Vol] 107 mg/dL Abnormal 65-99 [facility] Internal Medicine Work Phone: Comment on above: PATIENT WAS FASTINGP ERFORMED BY: JAMA LabRoger JiménezJkczqq1306 [address] RoadDublin [place] [id number] Potassium [Moles/Vol] 4.4 mmol/L Normal 3.5-5.2 [facility] Internal Medicine Work Phone: Comment on above: PATIENT WAS FASTINGP ERFORMED BY: JAMA [facility] Huamrv4990 [address] RoadDublin [place] [id number] Protein [Mass/Vol] 6.6 g/dL Normal 6.0-8.5 [facility] Internal Medicine Work Phone: Comment on above: PATIENT WAS FASTINGP ERFORMED BY: JAMA LabRoger JiménezIlcijp0200 [address] Roadblin [place] [id number] Sodium [Moles/Vol] 138 mmol/L Normal 134-144 [facility] Internal Medicine Work Phone: Comment on above: PATIENT WAS FASTINGP ERFORMED BY: JAMA [facility]Park[facility] Pgjtlo4583 [address] Roadblin [place] [id number] Urea nitrogen [Mass/Vol] 17 mg/dL Normal 6-24 [facility] Internal Medicine Work Phone: Comment on above: PATIENT WAS FASTINGP ERFORMED BY: JAMA [facility] Toykzc7698 [address] Roadblin [place] [id number] Urea nitrogen/Creatinine [Mass ratio] 18 mg/mg Normal 9-20 [facility] Internal Medicine Work Phone: Comment on above: PATIENT WAS FASTINGP ERFORMED BY: JAMA [facility] Oidhtj[address] [facility] HospitalDublin [place] [id number] MICROALBUMINOrdered By: Syst em [employer] Worker on 06-24-2013 Albumin DL <= 20 mg/L (U) [Mass/Vol] 7.2 ug/mL Normal 0.0-17.0 [facility] Internal Medicine Work Phone: Comment on above: PATIENT WAS FASTINGP ERFORMED BY: JAMA [facility] Wfmnid7240 [address] RoadDublin [place] [id number] Albumin/Creatinine (U) [Mass ratio] 6.9 {mg/g_creat} Normal 0.0-30.0 [facility] Work Phone: Comment on above: PATIENT WAS FASTINGP ERFORMED BY: [place] HomesteadChinle Comprehensive Health Care FacilityCbqdyz2291 [facility] [id number] Creatinine (U) [Mass/Vol] 104.5 mg/dL Normal 22.0-328.0 [facility] Work Phone: Comment on above: PATIENT WAS FASTINGP ERFORMED BY: [place] Hwfapv7745 [facility] [id number] PSA (PROSTATE SPECIFIC ANTIG EN) (V76.44)Ordered By: Customer Orders Clerk on 06-24-2013 Prostate specific Ag [Mass/Vol] 1.7 ng/mL Normal 0.0-4.0 [facility] Work Phone: Comment on above: Steve ECLIA methodol ogy. .According to the [place] [employer], Serum PSA shoulddecrease and remain [...] dx screening; PATIEN T WAS FASTINGPERFORMED BY: [place] Dtwogr2014 [facility] [id number] TSH ([id number])Ordered By: mBlox m [address]id[address] Worker on 06-24-2013 TSH Qn 1.230 {uIU/mL} Normal 0.450-4.50 0 [facility] Work Phone: Comment on above: PATIENT WAS FASTINGP ERFORMED BY: [place] HomesteadChinle Comprehensive Health Care FacilityHxapdk0722 [facility] [id number] URINALYSIS, W/ MICRO ([id number]) Ordered By: Customer Orders Clerk on 06-24-2013 Appearance (U) Clear Normal Comprehens johann Internal Medicine Work Phone: Comment on above: PATIENT WAS FASTINGP ERFORMED BY: JAMA LabRoger Cckwwq3581 [address] RoadDublin [place] [id number] Bilirubin Ql (U) Negative Normal Comprehe nsive Internal Medicine Work Phone: Comment on above: PATIENT WAS FASTINGP ERFORMED BY: JAMA Dylanthania JiménezYszlip5407 [address] RoadDublin [place] [id number] Color (U) Yellow Normal [facility] Work Phone: Comment on above: PATIENT WAS FASTINGP ERFORMED BY: JAMA LabAdarshthania JiménezAmltxy2592 [address] RoadDublin [place] [id number] Glucose Ql (U) Negative Normal Comprehens johann Internal Medicine Work Phone: Comment on above: PATIENT WAS FASTINGP ERFORMED BY: JAMA RadhaRoger JiménezCazorc6580 [address] RoadDublin [place] [id number] Hemoglobin Ql (U) Negative Normal Compreh ensive [facility] Work Phone: Comment on above: PATIENT WAS FASTINGP ERFORMED BY: JAMA Dylnathania JiménezZtenkq4761 [address] RoadDublin [place] [id number] Ketones Ql (U) Negative Normal Comprehens johann [facility] Work Phone: Comment on above: PATIENT WAS FASTINGP ERFORMED BY: JAMA Jiménezlin6[address] RoadDublin [place] [id number] Leukocyte esterase Test strip Ql (U) Negative Normal [facility] Work Phone: Comment on above: PATIENT WAS FASTINGP ERFORMED BY: JAMA Jiménezlin6[address] RoadDublin [place] [id number] Microscopic observation LM Nom (Urine sed) See below: Normal [facility] Work Phone: Comment on above: PATIENT WAS FASTINGP ERFORMED BY: JAMA [facility] Ghbrhi3191 [address] RoadDublin [place] [id number] Microscopic observation LM Nom (Urine sed) MICRON Normal [facility] Work Phone: Comment on above: Microscopic follows if indicated. PATIENT WAS FASTINGP ERFORMED BY: JAMA [facility] Ljisen3278 [address] RoadDublin [place] [id number] Nitrite Ql (U) Negative Normal Comprehens johann Internal Medicine Work Phone: Comment on above: PATIENT WAS FASTINGP ERFORMED BY: [facility]6370 [facility] [id number] pH (U) 5.5 [pH] Normal 5.0-7.5 [facility] Work Phone: Comment on above: PATIENT WAS FASTINGP ERFORMED BY: LabCoOcean Medical CenterWymgjo9268 [facility] [id number] Protein Ql (U) Negative Normal Comprehens johann Internal Medicine Work Phone: Comment on above: PATIENT WAS FASTINGP ERFORMED BY: [facility]6370 [facility] [id number] Specific gravity (U) [Rel density] 1.018 1 Normal 1.005-1.03 0 [facility] Work Phone: Comment on above: PATIENT WAS FASTINGP ERFORMED BY: [facility]6370 [facility] [id number] Urobilinogen Test strip (U) [Mass/Vol] 0.2 mg/dL Normal 0.0-1.9 Comprehensi Internal Medicine Work Phone: Comment on above: PATIENT WAS FASTINGP ERFORMED BY: [facility]6370 [facility] [id number] HgA1C , Office ([phone])Ordere d By: Marycarmen Robles on 06-11-2013 HbA1c (Bld) [Mass fraction] 5.8 % Normal 4.6 - 7.1 [facility] Work Phone: Blood Glucose , Office ([phone])Ordered By: Yudith Vaz on 07-08-2012 Glucose Glucometer (BldC) [Moles/Vol] 142 1 Normal [facility] Work Phone: HgA1C , Office ([phone])Ordere d By: Yudith Vaz on 07-08-2012 HbA1c (Bld) [Mass fraction] 5.7 % Normal 4.6 - 7.1 [facility] Work Phone: CBC WITH MANUAL DIFF ([id number]) Ordered By: Customer Orders Clerk on 06-28-2012 Basophils (Bld) [#/Vol] 0.0 {x10E3/uL} Normal 0.0-0.2 [facility] Work Phone: Comment on above: PATIENT WAS FASTINGP ERFORMED BY: [facility] Xhfnbf[address] [facility]in [place] [id number] Information: [id number] Basophils/100 WBC (Bld) 0 % Normal 0-3 [facility] Work Phone: Comment on above: PATIENT WAS FASTINGP ERFORMED BY: Lab[facility] Qdowgh[address] [facility] [id number] Information: 279247,[id number] Eosinophils (Bld) [#/Vol] 0.3 {x10E3/uL} Normal 0.0-0.4 [facility] Work Phone: Comment on above: PATIENT WAS FASTINGP ERFORMED BY: [facility] Ysblda[address] [facility] [id number] Information: [id number] Eosinophils/100 WBC (Bld) 3 % Normal 0-7 [facility] Work Phone: Comment on above: PATIENT WAS FASTINGP ERFORMED BY: LabCoChinle Comprehensive Health Care FacilityVkansl3754 [facility] [id number] Information: [id number],Y03388 Erythrocyte distribution width (RBC) [Ratio] 13.3 % Normal 12.3-15.4 [facility] Work Phone: Comment on above: PATIENT WAS FASTINGP ERFORMED BY: [facility] Xkfmmd[address] [facility] [id number] Information: [id number] Hematocrit (Bld) [Volume fraction] 43.2 % Normal 37.5-51.0 [facility] Work Phone: Comment on above: PATIENT WAS FASTINGP ERFORMED BY: [facility] Unxqem[address] [facility] [id number] Information: 826405,[id number] Hemoglobin (Bld) [Mass/Vol] 14.3 g/dL Normal 12.6-17.7 [facility] Work Phone: Comment on above: PATIENT WAS FASTINGP ERFORMED BY: [place] 3407570 [facility] [id number] Information: 882683,C35129 Immature granulocytes (Bld) [#/Vol] 0.0 {x10E3/uL} Normal 0.0-0.1 [facility] Work Phone: Comment on above: PATIENT WAS FASTINGP ERFORMED BY: [place] 3407570 [facility] [id number] Information: 992384,D18687 Immature granulocytes/100 WBC (Bld) 0 % Normal 0-2 [facility] Work Phone: Comment on above: PATIENT WAS FASTINGP ERFORMED BY: [facility]6370 [facility] [id number] Information: 526146,[id number] Lymphocytes (Bld) [#/Vol] 2.9 {x10E3/uL} Normal 0.7-4.5 [facility] Work Phone: Comment on above: PATIENT WAS FASTINGP ERFORMED BY: [facility]6370 [facility] [id number] Information: [id number] Lymphocytes/100 WBC (Bld) 38 % Normal 14-46 [facility] Work Phone: Comment on above: PATIENT WAS FASTINGP ERFORMED BY: [place] [id number] [facility] [id number] Information: [id number] MCH (RBC) [Entitic mass] 29.4 pg Normal 26.6-33.0 [facility] Work Phone: Comment on above: PATIENT WAS FASTINGP ERFORMED BY: [address] [id number] Information: [id number] MCHC (RBC) [Mass/Vol] 33.1 g/dL Normal 31.5-35.7 [facility] Internal Medicine Work Phone: Comment on above: PATIENT WAS FASTINGP ERFORMED BY: JAMA [place] [id number] [facility] [id number] Information: [id number] MCV (RBC) [Entitic vol] 89 fL Normal 79-97 [facility] Work Phone: Comment on above: PATIENT WAS FASTINGP ERFORMED BY: [address] [id number] Information: [id number] Monocytes (Bld) [#/Vol] 0.7 {x10E3/uL} Normal 0.1-1.0 [facility] Work Phone: Comment on above: PATIENT WAS FASTINGP ERFORMED BY: [place] [id number] [facility] [id number] Information: [id number] Monocytes/100 WBC (Bld) 9 % Normal 4-13 [facility] Work Phone: Comment on above: PATIENT WAS FASTINGP ERFORMED BY: [address] [id number] Information: [id number] Neutrophils (Bld) [#/Vol] 3.7 {x10E3/uL} Normal 1.8-7.8 [facility] Work Phone: Comment on above: PATIENT WAS FASTINGP ERFORMED BY: [facility]6370 [facility] [id number] Information: [id number] Neutrophils/100 WBC (Bld) 50 % Normal 40-74 [facility] Work Phone: Comment on above: PATIENT WAS FASTINGP ERFORMED BY: [place] [id number] [facility] [id number] Information: [id number],[id number] Platelets (Bld) [#/Vol] 206 {x10E3/uL} Normal 140-415 [facility] Work Phone: Comment on above: PATIENT WAS FASTINGP ERFORMED BY: JAMA Nogueira6370 [facility] [id number] Information: [id number] RBC (Bld) [#/Vol] 4.86 {x10E6/uL} Normal 4.14-5.80 [facility] Internal Medicine Work Phone: Comment on above: PATIENT WAS FASTINGP ERFORMED BY: JAMA [facility] Trcvli3969 [address] [facility] [id number] Information: [id number] WBC (Bld) [#/Vol] 7.5 {x10E3/uL} Normal 4.0-10.5 [facility] Internal Medicine Work Phone: Comment on above: PATIENT WAS FASTINGP ERFORMED BY: JAMA [facility] Mdjrrg4421 [facility] [id number] Information: [id number] LIPID PANEL ([id number])Ordered B y: Customer Orders Clerk on 06-28-2012 Cholesterol [Mass/Vol] 153 mg/dL Normal 100-199 [facility] Work Phone: Comment on above: PATIENT WAS FASTINGP ERFORMED BY: JAMA [facility] Qwycnl3612 [facility] [id number] Cholesterol in HDL [Mass/Vol] 48 mg/dL Normal [facility] Work Phone: Comment on above: According to ATP-III Guidelines, HDL-C >59 mg/dL is considered anegative risk factor for CHD. PATIENT WAS FASTINGP ERFORMED BY: JAMA [facility] Hivesz5524 [address] [facility] [id number] Cholesterol in LDL [Mass/Vol] 85 mg/dL Normal 0-99 [facility] Work Phone: Comment on above: PATIENT WAS FASTINGP ERFORMED BY: [facility] Xincrm5877 [address] [facility] [id number] Cholesterol in LDL/Cholesterol in HDL [Mass ratio] 1.8 {ratio_units} Normal 0.0-3.6 [facility] Work Phone: Comment on above: PATIENT WAS FASTINGP ERFORMED BY: JAMA LabRoger JiménezKcjwwy4532 Jimenez RoadDublin [place] [id number] Cholesterol in VLDL [Mass/Vol] 20 mg/dL Normal 5-40 [facility] Work Phone: Comment on above: PATIENT WAS FASTINGP ERFORMED BY: JAMA LabRoger JiménezMedong0507 [address] [facility] [id number] Triglyceride [Mass/Vol] 98 mg/dL Normal 0-149 [facility] Work Phone: Comment on above: PATIENT WAS FASTINGP ERFORMED BY: JAMA Jiménezlin6370 [address] [facility] [id number] METABOLIC PANEL, COMPREHENSI VE ([id number])Ordered By: Customer Orders Clerk on 06-28-2012 Albumin [Mass/Vol] 4.9 g/dL Normal 3.5-5.5 [facility] Internal Medicine Work Phone: Comment on above: PATIENT WAS FASTINGP ERFORMED BY: JAMA Jiménezlin6370 [address] [facility] [place] [id number] Albumin/Globulin [Mass ratio] 2.1 {ratio} Normal 1.1-2.5 [facility] Work Phone: Comment on above: PATIENT WAS FASTINGP ERFORMED BY: JAMA LabAdarsh Gouhmd0448 [address] [facility] [place] [id number] ALP [Catalytic activity/Vol] 54 [iU]/L Normal 25-150 [facility] Work Phone: Comment on above: PATIENT WAS FASTINGP ERFORMED BY: JAMA LabCothania JiménezDlowzu7537 [address] [facility] Hospitalblin [place] [id number] ALT [Catalytic activity/Vol] 31 [iU]/L Normal 0-44 [facility] Work Phone: Comment on above: PATIENT WAS FASTINGP ERFORMED BY: JAMA [facility] Mhggko2463 [address]enez RoadDublin [place] [id number] AST [Catalytic activity/Vol] 25 [iU]/L Normal 0-40 [facility] Internal Medicine Work Phone: Comment on above: PATIENT WAS FASTINGP ERFORMED BY: JAMA [facility] Kgensr5436 Jimenez RoadDublin [place] [id number] Bilirubin [Mass/Vol] 0.8 mg/dL Normal 0.0-1.2 [facility] Internal [facility] Work Phone: Comment on above: PATIENT WAS FASTINGP ERFORMED BY: [facility]Park[facility] Vwmobh4367 Jimenez RoadDublin [place] [id number] Calcium [Mass/Vol] 9.7 mg/dL Normal 8.7-10.2 [facility] Internal Medicine Work Phone: Comment on above: PATIENT WAS FASTINGP ERFORMED BY: JAMA LabPark[facility] Oywrzs1429 Jimenez RoadDuin [place] [id number] Chloride [Moles/Vol] 102 mmol/L Normal 97-108 [facility] Work Phone: Comment on above: PATIENT WAS FASTINGP ERFORMED BY: [facility] Kmvmrw4921 [address] RoadDublin [place] [id number] CO2 [Moles/Vol] 23 mmol/L Normal 20-32 [facility] Internal Medicine Work Phone: Comment on above: PATIENT WAS FASTINGP ERFORMED BY: [facility] Gacdrd9523 [address]enez RoadDublin [place] [id number] Creatinine [Mass/Vol] 1.05 mg/dL Normal 0.76-1.27 [facility] Internal Medicine Work Phone: Comment on above: PATIENT WAS FASTINGP ERFORMED BY: [facility]Park[facility] Pohnkc4170 [address]enez RoadDublin [place] [id number] GFR/1.73 sq M predicted among blacks CKD-EPI (S/P/Bld) [Vol rate/Area] 93 mL/min/1.73 Normal [facility] Internal Medicine Work Phone: Comment on above: PATIENT WAS FASTINGP ERFORMED BY: [facility] Bhjaba7860 [address] RoadDublin [place] [id number] GFR/1.73 sq M predicted among non-blacks CKD-EPI (S/P/Bld) [Vol rate/Area] 80 mL/min/1.73 Normal [facility] Internal Medicine Work Phone: Comment on above: PATIENT WAS FASTINGP ERFORMED BY: JAMA LabRoger JiménezXcytlr1061 [facility] [id number] Globulin (S) [Mass/Vol] 2.3 g/dL Normal 1.5-4.5 [facility] Internal Medicine Work Phone: Comment on above: PATIENT WAS FASTINGP ERFORMED BY: JAMA [facility]Park[facility] Plgvrw5130 [address] [facility] [id number] Glucose [Mass/Vol] 100 mg/dL Abnormal 65-99 [facility] Internal Medicine Work Phone: Comment on above: PATIENT WAS FASTINGP ERFORMED BY: JAMA GarciaParkland Health Center Cmfowi7846 [facility] [id number] Potassium [Moles/Vol] 4.0 mmol/L Normal 3.5-5.2 [facility] Internal Medicine Work Phone: Comment on above: PATIENT WAS FASTINGP ERFORMED BY: JAMA Richardson Yojpym3570 [facility] [id number] Protein [Mass/Vol] 7.2 g/dL Normal 6.0-8.5 [facility] Internal Medicine Work Phone: Comment on above: PATIENT WAS FASTINGP ERFORMED BY: JAMA LabPark[facility] Aypeze4521 [address] [facility] [id number] Sodium [Moles/Vol] 137 mmol/L Normal 134-144 [facility] Internal Medicine Work Phone: Comment on above: PATIENT WAS FASTINGP ERFORMED BY: JAMA LabPark[facility] Posnxx8341 [address] [facility] [id number] Urea nitrogen [Mass/Vol] 17 mg/dL Normal 6-24 [facility] Internal Medicine Work Phone: Comment on above: PATIENT WAS FASTINGP ERFORMED BY: JAMA LabPark[facility] Cuhxfw7136 [address] [facility] [id number] Urea nitrogen/Creatinine [Mass ratio] 16 mg/mg Normal 9-20 [facility] Work Phone: Comment on above: PATIENT WAS FASTINGP ERFORMED BY: JAMA Jiménezlin6370 [address] [facility]in [place] [id number] MICROALBUMINOrdered By: Syst em [employer] Worker on 06-28-2012 Albumin DL <= 20 mg/L (U) [Mass/Vol] 5.8 ug/mL Normal 0.0-17.0 [facility] Work Phone: Comment on above: PATIENT WAS FASTINGP ERFORMED BY: JAMA Jiménezlin6370 [facility] [id number] Albumin/Creatinine (U) [Mass ratio] 4.0 {mg/g_creat} Normal 0.0-30.0 [facility] Work Phone: Comment on above: PATIENT WAS FASTINGP ERFORMED BY: JAMA Jiménezlin6370 [facility] [id number] Creatinine (U) [Mass/Vol] 143.7 mg/dL Normal 22.0-328.0 [facility] Work Phone: Comment on above: PATIENT WAS FASTINGP ERFORMED BY: JAMA Jiménezlin6370 [facility] [id number] TSH ([id number])Ordered By: Diurnale [address] Worker on 06-28-2012 TSH Qn 1.580 {uIU/mL} Normal 0.450-4.50 0 [facility] Work Phone: Comment on above: PATIENT WAS FASTINGP ERFORMED BY: JAMA LabRoger JiménezDispwz9765 [facility] [id number] URINALYSIS, W/ MICRO ([id number]) Ordered By: Customer Orders Clerk on 06-28-2012 Appearance (U) Clear Normal Comprehens johann Internal Medicine Work Phone: Comment on above: PATIENT WAS FASTINGP ERFORMED BY: JAMA LabAdarsh Ohsblu2035 [address] [facility] [id number] Bilirubin Ql (U) Negative Normal Comprehe nsive Internal Medicine Work Phone: Comment on above: PATIENT WAS FASTINGP ERFORMED BY: JAMA LabAdarshrp Dwbaom4048 Jimenez RoadDublin [place] [id number] Color (U) Yellow Normal [facility] Work Phone: Comment on above: PATIENT WAS FASTINGP ERFORMED BY: JAMA LabRoger JiménezJbxbzp8701 Jimenez RoadDublin [place] [id number] Glucose Ql (U) Negative Normal Comprehens johann Internal Medicine Work Phone: Comment on above: PATIENT WAS FASTINGP ERFORMED BY: JAMA LabCothania JiménezIerfro8101 [address] RoadDublin [place] [id number] Hemoglobin Ql (U) Negative Normal Compreh ensive Internal Medicine Work Phone: Comment on above: PATIENT WAS FASTINGP ERFORMED BY: JAMA Jiménezlin6370 [address] RoadDublin [place] [id number] Ketones Ql (U) Negative Normal Comprehens johann Internal Medicine Work Phone: Comment on above: PATIENT WAS FASTINGP ERFORMED BY: JAMA Jiménezlin6370 [address] RoadDublin [place] [id number] Leukocyte esterase Test strip Ql (U) Negative Normal [facility] Work Phone: Comment on above: PATIENT WAS FASTINGP ERFORMED BY: JAMA Nogueira6370 [address] RoadDublin [place] [id number] Microscopic observation LM Nom (Urine sed) See below: Normal [facility] Work Phone: Comment on above: PATIENT WAS FASTINGP ERFORMED BY: JAMA [facility] Fgmekf8444 Jimenez RoadDublin [place] [id number] Microscopic observation LM Nom (Urine sed) MICRON Normal [facility] Work Phone: Comment on above: Microscopic follows if indicated. PATIENT WAS FASTINGP ERFORMED BY: JAMA [facility] Jaavbu2805 Jimenez RoadDublin [place] [id number] Nitrite Ql (U) Negative Normal Comprehens johann Internal Medicine Work Phone: Comment on above: PATIENT WAS FASTINGP ERFORMED BY: JAMA Jiménezlin6370 [facility] [id number] pH (U) 5.5 [pH] Normal 5.0-7.5 [facility] Internal Medicine Work Phone: Comment on above: PATIENT WAS FASTINGP ERFORMED BY: [facility]6370 [facility] [id number] Protein Ql (U) Negative Normal Comprehens johann Internal Medicine Work Phone: Comment on above: PATIENT WAS FASTINGP ERFORMED BY: [facility]6370 [facility] [id number] Specific gravity (U) [Rel density] 1.019 1 Normal 1.005-1.03 0 [facility] Internal Medicine Work Phone: Comment on above: PATIENT WAS FASTINGP ERFORMED BY: JAMA [facility]6370 [facility] [id number] Urobilinogen Test strip (U) [Mass/Vol] 0.2 mg/dL Normal 0.0-1.9 [facility] Internal Medicine Work Phone: Comment on above: PATIENT WAS FASTINGP ERFORMED BY: [facility]6370 [facility] [id number] Blood Glucose , Office ([phone])on 01-08-2012 Glucose Glucometer (BldC) [Moles/Vol] 88 1 Normal [facility] Internal Medicine Work Phone: HgA1C , Office ([phone])on HbA1c (Bld) [Mass fraction] 5.8 % Normal 4.6 - 7.1 [facility] Internal Medicine Work Phone: Hemoglobin Glyclated (HGB A1 C) (52511)Ordered By: Customer Orders Clerk on 09-06-2011 HbA1c (Bld) [Mass fraction] 5.9 % Abnormal 4.8-5.6 [facility] Internal Medicine Work Phone: Comment on above: . Increased risk for diabetes: 5.7 - 6.4 Diabetes: >6.4 Glycemic control for adults with diabetes: <7.0 PATIENT NOT FASTINGP ERFORMED BY: [place] 3407570 [facility] [id number] Information: ADD [id number] AND DRAW FEE [phone] CBC WITH MANUAL DIFF (26935) Ordered By: Customer Orders Clerk on 08-28-2011 Basophils (Bld) [#/Vol] 0.0 {x10E3/uL} Normal 0.0-0.2 [facility] Work Phone: Comment on above: PATIENT WAS FASTINGP ERFORMED BY: [address] [id number] Information: 314883,[id number] Basophils/100 WBC (Bld) 1 % Normal 0-3 [facility] Work Phone: Comment on above: PATIENT WAS FASTINGP ERFORMED BY: [address] [id number] Information: 330393,[id number] Eosinophils (Bld) [#/Vol] 0.2 {x10E3/uL} Normal 0.0-0.4 [facility] Work Phone: Comment on above: PATIENT WAS FASTINGP ERFORMED BY: [address] [id number] Information: 478822,[id number] Eosinophils/100 WBC (Bld) 2 % Normal 0-7 [facility] Work Phone: Comment on above: PATIENT WAS FASTINGP ERFORMED BY: [address] [id number] Information: [id number],[id number] Erythrocyte distribution width (RBC) [Ratio] 12.8 % Normal 12.3-15.4 [facility] Work Phone: Comment on above: PATIENT WAS FASTINGP ERFORMED BY: [place] 3407570 [facility] [id number] Information: [id number],[id number] Hematocrit (Bld) [Volume fraction] 41.4 % Normal 37.5-51.0 [facility] Work Phone: Comment on above: PATIENT WAS FASTINGP ERFORMED BY: [place] 3407570 [facility] [id number] Information: [id number],[id number] Hemoglobin (Bld) [Mass/Vol] 14.7 g/dL Normal 12.6-17.7 [facility] Work Phone: Comment on above: PATIENT WAS FASTINGP ERFORMED BY: [address] [id number] Information: 766034,[id number] Immature granulocytes (Bld) [#/Vol] 0.0 {x10E3/uL} Normal 0.0-0.1 [facility] Work Phone: Comment on above: PATIENT WAS FASTINGP ERFORMED BY: [address] [id number] Information: [id number] Immature granulocytes/100 WBC (Bld) 0 % Normal 0-2 [facility] Work Phone: Comment on above: PATIENT WAS FASTINGP ERFORMED BY: [address] [id number] Information: [id number],[id number] Lymphocytes (Bld) [#/Vol] 2.2 {x10E3/uL} Normal 0.7-4.5 [facility] Work Phone: Comment on above: PATIENT WAS FASTINGP ERFORMED BY: [address] [id number] Information: [id number] Lymphocytes/100 WBC (Bld) 26 % Normal 14-46 [facility] Work Phone: Comment on above: PATIENT WAS FASTINGP ERFORMED BY: [address] [id number] Information: [id number],[id number] MCH (RBC) [Entitic mass] 30.8 pg Normal 26.6-33.0 [facility] Work Phone: Comment on above: PATIENT WAS FASTINGP ERFORMED BY: JAMA [facility]6370 [facility] [id number] Information: 624797,[id number] MCHC (RBC) [Mass/Vol] 35.5 g/dL Normal 31.5-35.7 [facility] Internal Medicine Work Phone: Comment on above: PATIENT WAS FASTINGP ERFORMED BY: JAMA [address] [id number] Information: [id number] MCV (RBC) [Entitic vol] 87 fL Normal 79-97 [facility] Internal Medicine Work Phone: Comment on above: PATIENT WAS FASTINGP ERFORMED BY: JAMA [address] [id number] Information: [id number],[id number] Monocytes (Bld) [#/Vol] 0.7 {x10E3/uL} Normal 0.1-1.0 [facility] Internal Medicine Work Phone: Comment on above: PATIENT WAS FASTINGP ERFORMED BY: JAMA RadhaTonya Ville [id number] [facility] [id number] Information: [id number] Monocytes/100 WBC (Bld) 9 % Normal 4-13 [facility] Work Phone: Comment on above: PATIENT WAS FASTINGP ERFORMED BY: JAMA [place] 4787770 [facility] [id number] Information: 376280,[id number] Neutrophils (Bld) [#/Vol] 5.1 {x10E3/uL} Normal 1.8-7.8 [facility] Work Phone: Comment on above: PATIENT WAS FASTINGP ERFORMED BY: JAMA [place] 4787770 [facility] [id number] Information: 410714,[id number] Neutrophils/100 WBC (Bld) 62 % Normal 40-74 [facility] Work Phone: Comment on above: PATIENT WAS FASTINGP ERFORMED BY: CB [place] 4787770 [facility] [id number] Information: [id number],[id number] Platelets (Bld) [#/Vol] 214 {x10E3/uL} Normal 140-415 [facility] Work Phone: Comment on above: PATIENT WAS FASTINGP ERFORMED BY: JAMA [facility]Park[facility] Zfvgys8930 [facility] [id number] Information: 155783,[id number] RBC (Bld) [#/Vol] 4.78 {x10E6/uL} Normal 4.14-5.80 [facility] Internal Medicine Work Phone: Comment on above: PATIENT WAS FASTINGP ERFORMED BY: JMAA Richardson Kjkivl9587 [facility] [id number] Information: 454886,[id number] WBC (Bld) [#/Vol] 8.2 {x10E3/uL} Normal 4.0-10.5 [facility] Internal Medicine Work Phone: Comment on above: PATIENT WAS FASTINGP ERFORMED BY: [facility]haPark[facility] Ezoowr1091 [facility] [id number] Information: 021732,[id number] LIPID PANEL (55652)Ordered B y: Customer Orders Clerk on 08-28-2011 Cholesterol [Mass/Vol] 171 mg/dL Normal 100-199 [facility] Work Phone: Comment on above: PATIENT WAS FASTINGP ERFORMED BY: [facility]haParkland [facility] Fpeyzm0641 [facility] [id number] Cholesterol in HDL [Mass/Vol] 54 mg/dL Normal [facility] Work Phone: Comment on above: According to ATP-III Guidelines, HDL-C >59 mg/dL is considered anegative risk factor for CHD. PATIENT WAS FASTINGP ERFORMED BY: LabPark[facility] Teeajc2677 [facility] [id number] Cholesterol in LDL [Mass/Vol] 97 mg/dL Normal 0-99 [facility] Work Phone: Comment on above: PATIENT WAS FASTINGP ERFORMED BY: CB [facility] Czudns4907 [address]enez RoadDublin [place] [id number] Cholesterol in LDL/Cholesterol in HDL [Mass ratio] 1.8 {ratio_units} Normal 0.0-3.6 [facility] Work Phone: Comment on above: PATIENT WAS FASTINGP ERFORMED BY: CB [facility] Cnfcjr2143 [address]enez RoadDublin [place] [id number] Cholesterol in VLDL [Mass/Vol] 20 mg/dL Normal 5-40 [facility] Work Phone: Comment on above: PATIENT WAS FASTINGP ERFORMED BY: CB [facility] Aotcig4351 [address] RoadDublin [place] [id number] Triglyceride [Mass/Vol] 99 mg/dL Normal 0-149 [facility] Work Phone: Comment on above: PATIENT WAS FASTINGP ERFORMED BY: CB [facility] Xiuaiu5498 [address]enez RoadDublin [place] [id number] METABOLIC PANEL, COMPREHENSI VE (26968)Ordered By: Customer Orders Clerk on 08-28-2011 Albumin [Mass/Vol] 4.9 g/dL Normal 3.5-5.5 [facility] Internal Medicine Work Phone: Comment on above: PATIENT WAS FASTINGP ERFORMED BY: CB [facility] Jmmjro2884 [address]enez RoadDublin [place] [id number] Albumin/Globulin [Mass ratio] 2.1 {ratio} Normal 1.1-2.5 [facility] Work Phone: Comment on above: PATIENT WAS FASTINGP ERFORMED BY: CB [facility] Hmdbwh6768 [address] RoadDublin [place] [id number] ALP [Catalytic activity/Vol] 55 [iU]/L Normal 25-150 [facility] Work Phone: Comment on above: PATIENT WAS FASTINGP ERFORMED BY: CB [facility] Tobbmn1539 [address] RoadDublin [place] [id number] ALT [Catalytic activity/Vol] 28 [iU]/L Normal 0-55 [facility] Work Phone: Comment on above: PATIENT WAS FASTINGP ERFORMED BY: JAMA [facility] Grmdqy0958 [address] RoadDublin [place] [id number] AST [Catalytic activity/Vol] 25 [iU]/L Normal 0-40 [facility] Internal Medicine Work Phone: Comment on above: PATIENT WAS FASTINGP ERFORMED BY: JAMA [facility] Stivzb2736 [address] RoadDublin [place] [id number] Bilirubin [Mass/Vol] 0.5 mg/dL Normal 0.0-1.2 [facility] Work Phone: Comment on above: PATIENT WAS FASTINGP ERFORMED BY: [facility] Zwctbk1610 [address] RoadDublin [place] [id number] Calcium [Mass/Vol] 10.0 mg/dL Normal 8.7-10.2 [facility] Internal Medicine Work Phone: Comment on above: PATIENT WAS FASTINGP ERFORMED BY: [facility] Sjemqw2963 [address] RoadDublin [place] [id number] Chloride [Moles/Vol] 105 mmol/L Normal 97-108 [facility] Work Phone: Comment on above: PATIENT WAS FASTINGP ERFORMED BY: [facility] Ydfmgg0082 [address] RoadDublin [place] [id number] CO2 [Moles/Vol] 20 mmol/L Normal 20-32 [facility] Internal Medicine Work Phone: Comment on above: PATIENT WAS FASTINGP ERFORMED BY: [facility] Bylhws5117 [address] RoadDublin [place] [id number] Creatinine [Mass/Vol] 1.03 mg/dL Normal 0.76-1.27 [facility] Internal Medicine Work Phone: Comment on above: PATIENT WAS FASTINGP ERFORMED BY: [facility] Mmyhuy6840 [address] RoadDublin [place] [id number] GFR/1.73 sq M predicted among blacks CKD-EPI (S/P/Bld) [Vol rate/Area] 95 mL/min/1.73 Normal [facility] Internal Medicine Work Phone: Comment on above: PATIENT WAS FASTINGP ERFORMED BY: LabPark[facility] Puibcg7364 [address] [facility] [place] [id number] GFR/1.73 sq M predicted among non-blacks CKD-EPI (S/P/Bld) [Vol rate/Area] 83 mL/min/1.73 Normal [facility] Internal Medicine Work Phone: Comment on above: PATIENT WAS FASTINGP ERFORMED BY: LabPark[facility] Cvcexh6848 [address] [facility] [id number] Globulin (S) [Mass/Vol] 2.3 g/dL Normal 1.5-4.5 [facility] Internal Medicine Work Phone: Comment on above: PATIENT WAS FASTINGP ERFORMED BY: [facility]Park[facility] Zftwub0656 [facility] [facility] [id number] Glucose [Mass/Vol] 103 mg/dL Abnormal 65-99 [facility] Internal Medicine Work Phone: Comment on above: PATIENT WAS FASTINGP ERFORMED BY: [facility]6370 [facility]in [place] [id number] Potassium [Moles/Vol] 4.2 mmol/L Normal 3.5-5.2 [facility] Internal Medicine Work Phone: Comment on above: PATIENT WAS FASTINGP ERFORMED BY: [facility]6370 [facility]in [place] [id number] Protein [Mass/Vol] 7.2 g/dL Normal 6.0-8.5 [facility] Internal Medicine Work Phone: Comment on above: PATIENT WAS FASTINGP ERFORMED BY: [facility] Jspdwo5790 [address] [facility]in [place] [id number] Sodium [Moles/Vol] 139 mmol/L Normal 134-144 [facility] Internal Medicine Work Phone: Comment on above: PATIENT WAS FASTINGP ERFORMED BY: [facility] Ioqbzo7127 [address] [facility]in [place] [id number] Urea nitrogen [Mass/Vol] 17 mg/dL Normal 6-24 [facility] Internal Medicine Work Phone: Comment on above: PATIENT WAS FASTINGP ERFORMED BY: [place] Nshrzp5968 [facility] [id number] Urea nitrogen/Creatinine [Mass ratio] 17 mg/mg Normal 9-20 [facility] Work Phone: Comment on above: PATIENT WAS FASTINGP ERFORMED BY: LabCo Loaigs2446 [facility] [id number] MICROALBUMINOrdered By: Syst em Skid[address] Worker on 08-28-2011 Albumin DL <= 20 mg/L (U) [Mass/Vol] 7.5 ug/mL Normal 0.0-17.0 [facility] Work Phone: Comment on above: PATIENT WAS FASTINGP ERFORMED BY: [place] Ttggkm1338 [facility] [id number] Albumin/Creatinine (U) [Mass ratio] 4.9 {mg/g_creat} Normal 0.0-30.0 [facility] Work Phone: Comment on above: PATIENT WAS FASTINGP ERFORMED BY: [place] Lcnrcv2063 [facility] [id number] Creatinine (U) [Mass/Vol] 151.7 mg/dL Normal 22.0-328.0 [facility] Work Phone: Comment on above: PATIENT WAS FASTINGP ERFORMED BY: [place] Snpgws9846 [facility] [id number] PSA (PROSTATE SPECIFIC ANTIG EN) (V76.44)Ordered By: Customer Orders Clerk on 08-28-2011 Prostate specific Ag [Mass/Vol] 2.2 ng/mL Normal 0.0-4.0 [facility] Work Phone: Comment on above: Steve ECLIA methodol ogy. .According to the [place] [employer], Serum PSA shoulddecrease and remain [...] PATIENT WAS FASTINGP ERFORMED BY: JAMA LabAdarsh Hikzmy0903 [address]enez RoadDublin [place] [id number] TSH ([id number])Ordered By: Diurnale m [address] Worker on 08-28-2011 TSH Qn 1.360 {uIU/mL} Normal 0.450-4.50 0 [facility] Work Phone: Comment on above: PATIENT WAS FASTINGP ERFORMED BY: JAMA LabCo Apnbfs3506 Jimenez RoadDublin [place] [id number] URINALYSIS, W/ MICRO ([id number]) Ordered By: Customer Orders Clerk on 08-28-2011 Appearance (U) Clear Normal Comprehens johann Internal Medicine Work Phone: Comment on above: PATIENT WAS FASTINGP ERFORMED BY: JAMA LabAdarsh Xmdbjq4633 [address] RoadDublin [place] [id number] Bilirubin Ql (U) Negative Normal Comprehe nsive Internal Medicine Work Phone: Comment on above: PATIENT WAS FASTINGP ERFORMED BY: JAMA LabCo Vjikpm9134 [address]enez RoadDublin [place] [id number] Color (U) Yellow Normal [facility] Work Phone: Comment on above: PATIENT WAS FASTINGP ERFORMED BY: JAMA Dylanthania JiménezDuqkwx4210 Jimenez RoadDublin [place] [id number] Glucose Ql (U) Negative Normal Comprehens johann Internal Medicine Work Phone: Comment on above: PATIENT WAS FASTINGP ERFORMED BY: JAMA LabCo Hqbmit1492 [address] RoadDublin [place] [id number] Hemoglobin Ql (U) Negative Normal Compreh ensive Internal Medicine Work Phone: Comment on above: PATIENT WAS FASTINGP ERFORMED BY: JAMA [facility] Lyklrw7498 [address] RoadDublin [place] [id number] Ketones Ql (U) Negative Normal Comprehens johann Internal Medicine Work Phone: Comment on above: PATIENT WAS FASTINGP ERFORMED BY: JAMA LabCo Htzynq6456 [address] RoadDublin [place] [id number] Leukocyte esterase Test strip Ql (U) Negative Normal [facility] Work Phone: Comment on above: PATIENT WAS FASTINGP ERFORMED BY: JAMA Nogueira6370 [address] [facility] [id number] Microscopic observation LM Nom (Urine sed) See below: Normal [facility] Work Phone: Comment on above: PATIENT WAS FASTINGP ERFORMED BY: JAMA Sanchez70 [address] [facility] [id number] Microscopic observation LM Nom (Urine sed) MICRON Normal [facility] Work Phone: Comment on above: Microscopic follows if indicated. PATIENT WAS FASTINGP ERFORMED BY: JAMA Nogueira6370 [facility] [id number] Nitrite Ql (U) Negative Normal Comprehens johann Internal Medicine Work Phone: Comment on above: PATIENT WAS FASTINGP ERFORMED BY: JAMA Nogueira6370 [facility] [id number] pH (U) 5.0 [pH] Normal 5.0-7.5 [facility] Work Phone: Comment on above: PATIENT WAS FASTINGP ERFORMED BY: JAMA Nogueira6370 [facility] [id number] Protein Ql (U) Negative Normal Comprehens johann Internal Medicine Work Phone: Comment on above: PATIENT WAS FASTINGP ERFORMED BY: JAMA Nogueira6370 [facility] [id number] Specific gravity (U) [Rel density] 1.018 1 Normal 1.005-1.03 0 [facility] Work Phone: Comment on above: PATIENT WAS FASTINGP ERFORMED BY: JAMA Nogueira6370 [facility] [id number] Urobilinogen Test strip (U) [Mass/Vol] 0.2 mg/dL Normal 0.0-1.9 Comprehensi Internal Medicine Work Phone: Comment on above: PATIENT WAS FASTINGP ERFORMED BY: JAMA Jiménezlin6370 [facility] [id number] Blood Glucose , Office (2696 2)Ordered By: Yudith Vaz on 05-04-2011 Glucose Glucometer (BldC) [Moles/Vol] 85 1 Normal [facility] Work Phone: HgA1C , Office (56073)Ordere d By: Yudith Vaz on 05-04-2011 HbA1c (Bld) [Mass fraction] 5.8 % Normal 4.6 - 7.1 [facility] Work Phone: LIPID PANEL ([id number])Ordered B y: Customer Orders Clerk on 10-03-2010 Cholesterol [Mass/Vol] 164 mg/dL Normal 100-199 [facility] Work Phone: Comment on above: PATIENT WAS FASTINGP ERFORMED BY: JAMA RadhaRoger Zlhiiy3431 [facility] [id number] Information: 080791,[id number]; appt 10/14/10 Cholesterol in HDL [Mass/Vol] 47 mg/dL Normal [facility] Work Phone: Comment on above: According to ATP-III Guidelines, HDL-C >59 mg/dL is considered anegative risk factor for CHD. PATIENT WAS FASTINGP ERFORMED BY: JAMA Jiménezlin6370 [facility] [id number] Information: [id number]; appt 10/14/10 Cholesterol in LDL [Mass/Vol] 93 mg/dL Normal 0-99 [facility] Work Phone: Comment on above: PATIENT WAS FASTINGP ERFORMED BY: JMAA LabCo Vppktc0350 [facility] [id number] Information: 658511,[id number]; appt 10/14/10 Cholesterol in LDL/Cholesterol in HDL [Mass ratio] 2.0 {ratio_units} Normal 0.0-3.6 [facility] Work Phone: Comment on above: PATIENT WAS FASTINGP ERFORMED BY: JAMA [facility] Jvvczy3153 [facility] [id number] Information: [id number],[id number]; appt 10/14/10 Cholesterol in VLDL [Mass/Vol] 24 mg/dL Normal 5-40 [facility] Work Phone: Comment on above: PATIENT WAS FASTINGP ERFORMED BY: JAMA LabRoger Nogueira6370 [facility] [id number] Information: 828123,Y40662; appt 10/14/10 Triglyceride [Mass/Vol] 120 mg/dL Normal 0-149 [facility] Work Phone: Comment on above: PATIENT WAS FASTINGP ERFORMED BY: JAMA LabCoOcean Medical CenterJzsnam4424 [facility] [id number] Information: [id number],Y88974; appt 10/14/10 CBC WITH MANUAL DIFF ([id number]) Ordered By: Customer Orders Clerk on 09-16-2010 Basophils (Bld) [#/Vol] 0.1 {x10E3/uL} Normal 0.0-0.2 [facility] Work Phone: Comment on above: PATIENT NOT FASTINGP ERFORMED BY: JAMA LabCo Cqpylq2078 [facility] [id number] Information: 819473,M70590 Basophils/100 WBC (Bld) 1 % Normal 0-3 [facility] Work Phone: Comment on above: PATIENT NOT FASTINGP ERFORMED BY: JAMA LabCoOcean Medical CenterOcdopj3151 [facility] [id number] Information: 034079,K22698 Eosinophils (Bld) [#/Vol] 0.4 {x10E3/uL} Normal 0.0-0.4 [facility] Work Phone: Comment on above: PATIENT NOT FASTINGP ERFORMED BY: JAMA LabCo Sayoxa3054 [facility] [id number] Information: 259383,Z62652 Eosinophils/100 WBC (Bld) 5 % Normal 0-7 [facility] Work Phone: Comment on above: PATIENT NOT FASTINGP ERFORMED BY: CB LabCo Izqgfj4063 [facility] [id number] Information: 540576,T08963 Erythrocyte distribution width (RBC) [Ratio] 12.8 % Normal 11.7-15.0 [facility] Work Phone: Comment on above: PATIENT NOT FASTINGP ERFORMED BY: JAMA [address] [id number] Information: 248676,P31239 Hematocrit (Bld) [Volume fraction] 43.0 % Normal 36.0-50.0 [facility] Work Phone: Comment on above: PATIENT NOT FASTINGP ERFORMED BY: JAMA Richardson[address] [id number] Information: 388540,T55974 Hemoglobin (Bld) [Mass/Vol] 14.1 g/dL Normal 12.5-17.0 [facility] Work Phone: Comment on above: PATIENT NOT FASTINGP ERFORMED BY: JAMA [place] 4787770 [facility] [id number] Information: 879872,K32150 Immature granulocytes (Bld) [#/Vol] 0.0 {x10E3/uL} Normal 0.0-0.1 [facility] Work Phone: Comment on above: PATIENT NOT FASTINGP ERFORMED BY: JAMA [place] 4787770 [facility] [id number] Information: 733032,S19833 Immature granulocytes/100 WBC (Bld) 0 % Normal 0-2 [facility] Work Phone: Comment on above: Please note refere nce interval change PATIENT NOT FASTINGP ERFORMED BY: JAMA [place] 4787770 [facility] [id number] Information: 061314,I75521 Lymphocytes (Bld) [#/Vol] 2.5 {x10E3/uL} Normal 0.7-4.5 [facility] Work Phone: Comment on above: PATIENT NOT FASTINGP ERFORMED BY: JAMA Teresa Jiménezlin6370 [facility] [id number] Information: 519601,O02885 Lymphocytes/100 WBC (Bld) 28 % Normal 14-46 [facility] Work Phone: Comment on above: PATIENT NOT FASTINGP ERFORMED BY: JAMA Jiménezlin6370 [facility] [id number] Information: 804473,W78407 MCH (RBC) [Entitic mass] 29.5 pg Normal 27.0-34.0 [facility] Work Phone: Comment on above: PATIENT NOT FASTINGP ERFORMED BY: JAMA Dylan Zosasc7442 [facility] [id number] Information: 578746,C17972 MCHC (RBC) [Mass/Vol] 32.8 g/dL Normal 32.0-36.0 [facility] Internal Medicine Work Phone: Comment on above: PATIENT NOT FASTINGP ERFORMED BY: JAMA DylanSteven Ville 6678870 [facility] [id number] Information: 109244,S30900 MCV (RBC) [Entitic vol] 90 fL Normal 80-98 [facility] Work Phone: Comment on above: PATIENT NOT FASTINGP ERFORMED BY: JAMA DylanSteven [place] 6678870 [facility] [id number] Information: 299940,F52477 Monocytes (Bld) [#/Vol] 0.9 {x10E3/uL} Normal 0.1-1.0 [facility] Work Phone: Comment on above: PATIENT NOT FASTINGP ERFORMED BY: JAMA GarciaCo Emiuqz4200 [facility] [id number] Information: 931638,E15234 Monocytes/100 WBC (Bld) 11 % Normal 4-13 [facility] Work Phone: Comment on above: PATIENT NOT FASTINGP ERFORMED BY: JAMA Richardson Txmmjm8745 [facility] [id number] Information: 811326,S40401 Neutrophils (Bld) [#/Vol] 5.0 {x10E3/uL} Normal 1.8-7.8 [facility] Internal Medicine Work Phone: Comment on above: PATIENT NOT FASTINGP ERFORMED BY: JAMA Richardson[address] [id number] Information: 436874,W70109 Neutrophils/100 WBC (Bld) 55 % Normal 40-74 [facility] Internal Medicine Work Phone: Comment on above: PATIENT NOT FASTINGP ERFORMED BY: JAMA Richardson Bcvqym3416 [facility] [id number] Information: 742358,K64517 Platelets (Bld) [#/Vol] 236 {x10E3/uL} Normal 140-415 [facility] Internal Medicine Work Phone: Comment on above: PATIENT NOT FASTINGP ERFORMED BY: JAMA RichardsonOcean Medical CenterLhwgfe5509 [facility] [id number] Information: 410979,[id number] RBC (Bld) [#/Vol] 4.78 {x10E6/uL} Normal 4.10-5.60 [facility] Internal Medicine Work Phone: Comment on above: PATIENT NOT FASTINGP ERFORMED BY: JAMA GarciaBrighton Hospital6370 [facility] [id number] Information: 009231,I57397 WBC (Bld) [#/Vol] 8.9 {x10E3/uL} Normal 4.0-10.5 [facility] Internal Medicine Work Phone: Comment on above: PATIENT NOT FASTINGP ERFORMED BY: JAMA GarciaParkland Health Center Lzxmii4995 [facility] [id number] Information: 092346,W84579 METABOLIC PANEL, COMPREHENSI VE (03818)Ordered By: Customer Orders Clerk on 09-16-2010 Albumin [Mass/Vol] 4.9 g/dL Normal 3.5-5.5 Compr hensive Internal Medicine Work Phone: Comment on above: PATIENT NOT FASTINGP ERFORMED BY: JAMA [facility] Wgcvix4737 [address]enez RoadDublin [place] [id number] Albumin/Globulin [Mass ratio] 2.0 {ratio} Normal 1.1-2.5 [facility] Work Phone: Comment on above: PATIENT NOT FASTINGP ERFORMED BY: CB [facility] Shyxvv9584 [address]enez RoadDublin [place] [id number] ALP [Catalytic activity/Vol] 54 [iU]/L Normal 25-150 [facility] Work Phone: Comment on above: PATIENT NOT FASTINGP ERFORMED BY: JAMA [facility] Cwbodt0863 [address] RoadDublin [place] [id number] ALT [Catalytic activity/Vol] 43 [iU]/L Normal 0-55 [facility] Work Phone: Comment on above: PATIENT NOT FASTINGP ERFORMED BY: JAMA LabRoger Qklwvf1397 [address] Roadblin [place] [id number] AST [Catalytic activity/Vol] 41 [iU]/L Abnormal 0-40 [facility] Work Phone: Comment on above: PATIENT NOT FASTINGP ERFORMED BY: JAMA Jiménezlin6370 [address] RoadDublin [place] [id number] Bilirubin [Mass/Vol] 0.3 mg/dL Normal 0.0-1.2 Comp rehensive Internal Medicine Work Phone: Comment on above: PATIENT NOT FASTINGP ERFORMED BY: CB [facility] Choanh8070 [address] RoadDublin [place] [id number] Calcium [Mass/Vol] 10.0 mg/dL Normal 8.7-10.2 [facility] Internal Medicine Work Phone: Comment on above: PATIENT NOT FASTINGP ERFORMED BY: JAMA [facility] Gitzbt1150 [address] RoadDublin [place] [id number] Chloride [Moles/Vol] 103 mmol/L Normal 97-108 Comp [facility] foundationensive Internal Medicine Work Phone: Comment on above: PATIENT NOT FASTINGP ERFORMED BY: CB [facility] Mjyrty5818 [address] RoadDublin [place] [id number] CO2 [Moles/Vol] 23 mmol/L Normal 20-32 Comprehen sive Internal Medicine Work Phone: Comment on above: PATIENT NOT FASTINGP ERFORMED BY: CB [facility] Pxonfk7007 [address] [facility]bl[facility] [place] [id number] Creatinine [Mass/Vol] 1.04 mg/dL Normal 0.76-1.27 [facility] prehensive Internal Medicine Work Phone: Comment on above: PATIENT NOT FASTINGP ERFORMED BY: CB [facility] Frnlre8139 [facility] RoadAn[facility] [id number] GFR/1.73 sq M predicted among blacks MDRD (S/P/Bld) [Vol rate/Area] 95 mL/min/{1.73_m2} Normal Comprehensiv e Internal Medicine Work Phone: Comment on above: Note: A persistent e GFR <60 mL/min/1.73 m2 (3 months or more) mayindicate chronic kidney disease. An eGFR >59 mL/min/1.73 m2 with anelevated urine protein also may indicate chronic kidney disease.Calculated using CKD-EPI formula. PATIENT NOT FASTINGP ERFORMED BY: CB [facility] Ulxhrm8885 [address] [facility] [id number] GFR/1.73 sq M predicted among non-blacks CKD-EPI (S/P/Bld) [Vol rate/Area] 82 mL/min/1.73 Normal [facility] Work Phone: Comment on above: PATIENT NOT FASTINGP ERFORMED BY: CB [facility] Anysyd1318 [address] [facility] [place] [id number] Globulin (S) [Mass/Vol] 2.5 g/dL Normal 1.5-4.5 [facility] Work Phone: Comment on above: PATIENT NOT FASTINGP ERFORMED BY: CB [facility] Thckdm0705 [address] [facility]bl[facility] [place] [id number] Glucose [Mass/Vol] 92 mg/dL Normal 65-99 Compre [facility] Internal Medicine Work Phone: Comment on above: PATIENT NOT FASTINGP ERFORMED BY: JAMA [facility] Njouxr5109 [address] RoadDuin [place] [id number] Potassium [Moles/Vol] 4.2 mmol/L Normal 3.5-5.2 [facility] Internal Medicine Work Phone: Comment on above: PATIENT NOT FASTINGP ERFORMED BY: CB [facility] Aobcui3695 [address] [facility] [id number] Protein [Mass/Vol] 7.4 g/dL Normal 6.0-8.5 [facility] Internal Medicine Work Phone: Comment on above: PATIENT NOT FASTINGP ERFORMED BY: CB [facility] Pbuomf9641 [address] [facility] [id number] Sodium [Moles/Vol] 141 mmol/L Normal 135-145 [facility] Internal Medicine Work Phone: Comment on above: PATIENT NOT FASTINGP ERFORMED BY: CB [facility] Vvapnd0962 [address] [facility] [id number] Urea nitrogen [Mass/Vol] 18 mg/dL Normal 6-24 [facility] Internal Medicine Work Phone: Comment on above: PATIENT NOT FASTINGP ERFORMED BY: JAMA LabCothania Vcmckj1646 [facility] [id number] Urea nitrogen/Creatinine [Mass ratio] 17 mg/mg Normal 9-20 [facility] Internal Medicine Work Phone: Comment on above: PATIENT NOT FASTINGP ERFORMED BY: CB [facility] Osedyp2407 [address] [facility] [id number] TSH ([id number])Ordered By: Hermelindo novoa [address] Worker on 09-16-2010 TSH Qn 1.660 {uIU/mL} Normal 0.450-4.50 0 [facility] Internal Medicine Work Phone: Comment on above: PATIENT NOT FASTINGP ERFORMED BY: JAMA [facility] Zdberc7633 [facility] [id number] Blood Glucose , Office (8296 2)Ordered By: Yudiht Vaz on 05-30-2010 Glucose Glucometer (BldC) [Moles/Vol] 102 1 Normal [facility] Work Phone: HgA1C , Office (59706)Ordere d By: Yudith Vaz on 05-30-2010 HbA1c (Bld) [Mass fraction] 6.0 % Normal 4.6 - 7.1 [facility] Work Phone: MICROALBUMINOrdered By: Syst em [address] Worker on 05-24-2010 Albumin DL <= 20 mg/L (U) [Mass/Vol] 7.3 ug/mL Normal 0.0-17.0 [facility] Work Phone: Comment on above: PATIENT NOT FASTINGP ERFORMED BY: JAMA [facility] Lcanoc9235 [address] RoadDublin [place] [id number] Albumin/Creatinine (U) [Mass ratio] 5.0 {mg/g_creat} Normal 0.0-30.0 [facility] Work Phone: Comment on above: PATIENT NOT FASTINGP ERFORMED BY: CB [facility] Nvnujf3458 [address] RoadDublin [place] [id number] Creatinine (U) [Mass/Vol] 145.3 mg/dL Normal 22.0-328.0 [facility] Work Phone: Comment on above: PATIENT NOT FASTINGP ERFORMED BY: CB [facility] Kcehbt4842 [address] RoadDublin [place] [id number] URINALYSIS, W/ MICRO ([id number]) Ordered By: Customer Orders Clerk on 05-24-2010 Appearance (U) Clear Normal Comprehens johann Internal Medicine Work Phone: Comment on above: PATIENT NOT FASTINGP ERFORMED BY: CB [facility] Qmswgs0611 [address] RoadDublin [place] [id number] Information: [id number] Bilirubin Ql (U) Negative Normal Comprehe nsive Internal Medicine Work Phone: Comment on above: PATIENT NOT FASTINGP ERFORMED BY: JAMA [facility] Msvkls6102 [address] RoadDublin [place] [id number] Information: [id number] Color (U) Yellow Normal [facility] Work Phone: Comment on above: PATIENT NOT FASTINGP ERFORMED BY: JAMA [facility] Rkzgbz5922 [address] RoadDublin [place] [id number] Information: R05907 Glucose Ql (U) Negative Normal Comprehens johann Internal Medicine Work Phone: Comment on above: PATIENT NOT FASTINGP ERFORMED BY: JAMA [facility] Ozcrbn4193 [address] RoadDublin [place] [id number] Information: L04895 Hemoglobin Ql (U) Negative Normal Compreh ensive Internal Medicine Work Phone: Comment on above: PATIENT NOT FASTINGP ERFORMED BY: JAMA [facility] Ullfvk2128 [address] RoadDublin [place] [id number] Information: P15161 Ketones Ql (U) Negative Normal Comprehens johann Internal Medicine Work Phone: Comment on above: PATIENT NOT FASTINGP ERFORMED BY: JAMA [facility] Rxjzjx0261 [address] RoadFormerly [facility] Centerin [place] [id number] Information: A07176 Leukocyte esterase Test strip Ql (U) Negative Normal [facility] Work Phone: Comment on above: PATIENT NOT FASTINGP ERFORMED BY: JAMA [facility] Lnjngs2785 [address] RoadFormerly [facility] Centerin [place] [id number] Information: G11316 Microscopic observation LM Nom (Urine sed) See below: Normal [facility] Work Phone: Comment on above: PATIENT NOT FASTINGP ERFORMED BY: JAMA [facility] Vyygxb5181 [address] RoadDuin [place] [id number] Information: L68926 Microscopic observation LM Nom (Urine sed) MICRON Normal [facility] Work Phone: Comment on above: Microscopic follows if indicated. PATIENT NOT FASTINGP ERFORMED BY: JAMA [facility] Pazsyv1920 [address] RoadDublin [place] [id number] Information: L61331 Nitrite Ql (U) Negative Normal Comprehens johann Internal Medicine Work Phone: Comment on above: PATIENT NOT FASTINGP ERFORMED BY: JAMA [facility] Daoejw8888 [address] RoadDublin [place] [id number] Information: K69980 pH (U) 5.0 [pH] Normal 5.0-7.5 [facility] Work Phone: Comment on above: PATIENT NOT FASTINGP ERFORMED BY: JAMA Richardson Mqweoh8884 [facility] [id number] Information: C06668 Protein Ql (U) Negative Normal Comprehens johann Internal Medicine Work Phone: Comment on above: PATIENT NOT FASTINGP ERFORMED BY: Radha[address] [id number] Information: A73710 Specific gravity (U) [Rel density] 1.019 1 Normal 1.005-1.03 0 [facility] Work Phone: Comment on above: PATIENT NOT FASTINGP ERFORMED BY: RadhaTonya Ville [id number] [facility] [id number] Information: [id number] Urobilinogen Test strip (U) [Mass/Vol] 0.2 mg/dL Normal 0.0-1.9 Comprehensi Internal Medicine Work Phone: Comment on above: PATIENT NOT FASTINGP ERFORMED BY: JAMA RichardsonOcean Medical CenterXynvew6865 [facility] [id number] Information: [id number] CBC WITH MANUAL DIFF (06664) Ordered By: Customer Orders Clerk on 05-23-2010 Basophils (Bld) [#/Vol] 0.0 {x10E3/uL} Normal 0.0-0.2 [facility] Work Phone: Comment on above: PATIENT WAS FASTINGP ERFORMED BY: RadhaTonya V[place] 9629370 [facility] [id number] Information: 329274,C19962 Basophils/100 WBC (Bld) 0 % Normal 0-3 [facility] Work Phone: Comment on above: PATIENT WAS FASTINGP ERFORMED BY: [place] [id number] [facility] [id number] Information: 261402,F54560 Eosinophils (Bld) [#/Vol] 0.2 {x10E3/uL} Normal 0.0-0.4 [facility] Work Phone: Comment on above: PATIENT WAS FASTINGP ERFORMED BY: [facility]6370 [facility] [id number] Information: [id number] Eosinophils/100 WBC (Bld) 2 % Normal 0-7 [facility] Work Phone: Comment on above: PATIENT WAS FASTINGP ERFORMED BY: [place] [id number] [facility] [id number] Information: [id number] Erythrocyte distribution width (RBC) [Ratio] 12.9 % Normal 11.7-15.0 [facility] Work Phone: Comment on above: PATIENT WAS FASTINGP ERFORMED BY: [address] [id number] Information: [id number] Hematocrit (Bld) [Volume fraction] 40.3 % Normal 36.0-50.0 [facility] Work Phone: Comment on above: PATIENT WAS FASTINGP ERFORMED BY: [place] [id number] [facility] [id number] Information: [id number] Hemoglobin (Bld) [Mass/Vol] 14.5 g/dL Normal 12.5-17.0 [facility] Work Phone: Comment on above: PATIENT WAS FASTINGP ERFORMED BY: [facility]6370 [facility] [id number] Information: 456806,[id number] Immature granulocytes (Bld) [#/Vol] 0.0 {x10E3/uL} Normal 0.0-0.1 [facility] Work Phone: Comment on above: PATIENT WAS FASTINGP ERFORMED BY: [facility]6370 [facility] [id number] Information: 781358,[id number] Immature granulocytes/100 WBC (Bld) 0 % Normal 0-1 [facility] Work Phone: Comment on above: PATIENT WAS FASTINGP ERFORMED BY: [address] [id number] Information: [id number] Lymphocytes (Bld) [#/Vol] 3.0 {x10E3/uL} Normal 0.7-4.5 [facility] Work Phone: Comment on above: PATIENT WAS FASTINGP ERFORMED BY: [address] [id number] Information: [id number],[id number] Lymphocytes/100 WBC (Bld) 34 % Normal 14-46 [facility] Work Phone: Comment on above: PATIENT WAS FASTINGP ERFORMED BY: [address] [id number] Information: [id number],[id number] MCH (RBC) [Entitic mass] 31.6 pg Normal 27.0-34.0 [facility] Internal Medicine Work Phone: Comment on above: PATIENT WAS FASTINGP ERFORMED BY: [address] [id number] Information: [id number],[id number] MCHC (RBC) [Mass/Vol] 36.0 g/dL Normal 32.0-36.0 [facility] Internal Medicine Work Phone: Comment on above: PATIENT WAS FASTINGP ERFORMED BY: [address] [id number] Information: [id number],[id number] MCV (RBC) [Entitic vol] 88 fL Normal 80-98 [facility] Work Phone: Comment on above: PATIENT WAS FASTINGP ERFORMED BY: [address] [id number] Information: [id number],[id number] Monocytes (Bld) [#/Vol] 1.0 {x10E3/uL} Normal 0.1-1.0 [facility] Work Phone: Comment on above: PATIENT WAS FASTINGP ERFORMED BY: [facility]CoO[facility] CenterPacjsq2387 [facility] [id number] Information: [id number],[id number] Monocytes/100 WBC (Bld) 11 % Normal 4-13 [facility] Work Phone: Comment on above: PATIENT WAS FASTINGP ERFORMED BY: [facility]6370 [facility] [id number] Information: 702608,[id number] Neutrophils (Bld) [#/Vol] 4.7 {x10E3/uL} Normal 1.8-7.8 [facility] Work Phone: Comment on above: PATIENT WAS FASTINGP ERFORMED BY: [facility]6370 [facility] [id number] Information: 049982,[id number] Neutrophils/100 WBC (Bld) 53 % Normal 40-74 [facility] Work Phone: Comment on above: PATIENT WAS FASTINGP ERFORMED BY: [facility]CoOcean Medical CenterRyoyjs1006 [facility] [id number] Information: 594788,F45076 Platelets (Bld) [#/Vol] 236 {x10E3/uL} Normal 140-415 [facility] Work Phone: Comment on above: PATIENT WAS FASTINGP ERFORMED BY: [facility] Qdbgsj6725 [facility] [id number] Information: [id number],[id number] RBC (Bld) [#/Vol] 4.59 {x10E6/uL} Normal 4.10-5.60 [facility] Internal Medicine Work Phone: Comment on above: PATIENT WAS FASTINGP ERFORMED BY: [facility]6370 [facility] [id number] Information: [id number],[id number] WBC (Bld) [#/Vol] 9.0 {x10E3/uL} Normal 4.0-10.5 [facility] prehensive Internal Medicine Work Phone: Comment on above: PATIENT WAS FASTINGP ERFORMED BY: JAMA LabCothania Wdkkzf5965 [address] [facility] HospitalDublin [place] [id number] Information: [id number],[id number] HEPATIC FUNCTION PANEL (8007 6)Ordered By: Customer Orders Clerk on 05-23-2010 Bilirubin.direct [Mass/Vol] 0.18 mg/dL Normal 0.00-0.40 [facility] Work Phone: Comment on above: PATIENT WAS FASTINGP ERFORMED BY: JAMA LabCo Lzanie9525 [address] [facility] [place] [id number] LIPID PANEL (42088)Ordered B y: Customer Orders Clerk on 05-23-2010 Cholesterol [Mass/Vol] 161 mg/dL Normal 100-199 [facility] Work Phone: Comment on above: PATIENT WAS FASTINGP ERFORMED BY: LabCo Uvvqsk7131 [address] [facility] [place] [id number] Cholesterol in HDL [Mass/Vol] 44 mg/dL Normal [facility] Work Phone: Comment on above: According to ATP-III Guidelines, HDL-C >59 mg/dL is considered anegative risk factor for CHD. PATIENT WAS FASTINGP ERFORMED BY: LabCo Ulrwis4332 [address] [facility]in [place] [id number] Cholesterol in LDL [Mass/Vol] 87 mg/dL Normal 0-99 [facility] Work Phone: Comment on above: PATIENT WAS FASTINGP ERFORMED BY: CB [facility] Lqpegy9105 [address] [facility] HospitalDuin [place] [id number] Cholesterol in LDL/Cholesterol in HDL [Mass ratio] 2.0 {ratio_units} Normal 0.0-3.6 [facility] Work Phone: Comment on above: PATIENT WAS FASTINGP ERFORMED BY: CB [facility] Yicscv4343 Jimenez RoadDublin [place] [id number] Cholesterol in VLDL [Mass/Vol] 30 mg/dL Normal 5-40 [facility] Work Phone: Comment on above: PATIENT WAS FASTINGP ERFORMED BY: JAMA LabCothania Tloccn9000 Jimenez RoadDublin [place] [id number] Triglyceride [Mass/Vol] 151 mg/dL Abnormal 0-149 [facility] Work Phone: Comment on above: PATIENT WAS FASTINGP ERFORMED BY: JAMA [facility] Nlfowt6949 Jimenez RoadDublin [place] [id number] METABOLIC PANEL, COMPREHENSI VE (64536)Ordered By: Customer Orders Clerk on 05-23-2010 Albumin [Mass/Vol] 4.8 g/dL Normal 3.5-5.5 [facility] Internal Medicine Work Phone: Comment on above: PATIENT WAS FASTINGP ERFORMED BY: JAMA LabCothania Ajsjnf6964 [address]enez RoadDublin [place] [id number] Albumin/Globulin [Mass ratio] 1.8 {ratio} Normal 1.1-2.5 [facility] Work Phone: Comment on above: PATIENT WAS FASTINGP ERFORMED BY: JAMA [facility] Dqcozp1335 Jimenez RoadDublin [place] [id number] ALP [Catalytic activity/Vol] 57 [iU]/L Normal 25-150 [facility] Work Phone: Comment on above: PATIENT WAS FASTINGP ERFORMED BY: JAMA [facility] Aykkgm0438 Jimenez RoadDublin [place] [id number] ALT [Catalytic activity/Vol] 38 [iU]/L Normal 0-55 [facility] Work Phone: Comment on above: PATIENT WAS FASTINGP ERFORMED BY: JAMA [facility] Nrhewk1992 [address] RoadDublin [place] [id number] AST [Catalytic activity/Vol] 35 [iU]/L Normal 0-40 [facility] Work Phone: Comment on above: PATIENT WAS FASTINGP ERFORMED BY: JAMA [facility] Zjqkpi7046 Jimenez RoadDublin [place] [id number] Bilirubin [Mass/Vol] 0.7 mg/dL Normal 0.0-1.2 [facility] rehensive Internal Medicine Work Phone: Comment on above: PATIENT WAS FASTINGP ERFORMED BY: CB [facility] Swynho3762 [address]enez RoadDublin [place] [id number] Calcium [Mass/Vol] 9.9 mg/dL Normal 8.7-10.2 [facility] Internal Medicine Work Phone: Comment on above: PATIENT WAS FASTINGP ERFORMED BY: CB [facility] Kbgxsk5383 Jimenez RoadDublin [place] [id number] Chloride [Moles/Vol] 101 mmol/L Normal 97-108 [facility]eren[facility] Work Phone: Comment on above: PATIENT WAS FASTINGP ERFORMED BY: CB [facility] Euqxgz5740 [address] RoadDublin [place] [id number] CO2 [Moles/Vol] 22 mmol/L Normal 20-32 [facility] Work Phone: Comment on above: PATIENT WAS FASTINGP ERFORMED BY: CB [facility] Nzqbsr6837 [address] RoadFormerly [facility] Centerin [place] [id number] Creatinine [Mass/Vol] 1.08 mg/dL Normal 0.76-1.27 [facility] Services[facility] Work Phone: Comment on above: PATIENT WAS FASTINGP ERFORMED BY: CB [facility] Ofaztg7457 Jimenez RoadDuin [place] [id number] GFR/1.73 sq M predicted among blacks MDRD (S/P/Bld) [Vol rate/Area] 91 mL/min/{1.73_m2} Normal Comprehensiv e Internal Medicine Work Phone: Comment on above: Note: A persistent e GFR <60 mL/min/1.73 m2 (3 months or more) mayindicate chronic kidney disease. An eGFR >59 mL/min/1.73 m2 with anelevated urine protein also may indicate chronic kidney disease.Calculated using CKD-EPI formula. PATIENT WAS FASTINGP ERFORMED BY: CB [facility] Jlijya7229 Jimenez RoadDublin [place] [id number] GFR/1.73 sq M predicted among non-blacks CKD-EPI (S/P/Bld) [Vol rate/Area] 78 mL/min/1.73 Normal [facility] Internal Medicine Work Phone: Comment on above: PATIENT WAS FASTINGP ERFORMED BY: CB [facility] Oqoipt2702 [address]enez RoadDublin [place] [id number] Globulin (S) [Mass/Vol] 2.6 g/dL Normal 1.5-4.5 [facility] Internal Medicine Work Phone: Comment on above: PATIENT WAS FASTINGP ERFORMED BY: CB [facility] Ynckys9375 [address] RoadDublin [place] [id number] Glucose [Mass/Vol] 89 mg/dL Normal 65-99 [facility] Internal Medicine Work Phone: Comment on above: PATIENT WAS FASTINGP ERFORMED BY: LabCo Nnmrxr2976 [address] RoadDublin [place] [id number] Potassium [Moles/Vol] 4.0 mmol/L Normal 3.5-5.2 [facility] Internal Medicine Work Phone: Comment on above: PATIENT WAS FASTINGP ERFORMED BY: LabCo Gnfmsv8423 [address] RoadDublin [place] [id number] Protein [Mass/Vol] 7.4 g/dL Normal 6.0-8.5 [facility] Internal Medicine Work Phone: Comment on above: PATIENT WAS FASTINGP ERFORMED BY: LabCo Qudsew9213 [address] RoadDublin [place] [id number] Sodium [Moles/Vol] 137 mmol/L Normal 135-145 [facility] Internal Medicine Work Phone: Comment on above: PATIENT WAS FASTINGP ERFORMED BY: [facility] Pckjdm0519 [address] RoadDublin [place] [id number] Urea nitrogen [Mass/Vol] 12 mg/dL Normal 6-24 [facility] Internal Medicine Work Phone: Comment on above: PATIENT WAS FASTINGP ERFORMED BY: CB [facility] Cxdkuw9299 [address] RoadDublin [place] [id number] Urea nitrogen/Creatinine [Mass ratio] 11 mg/mg Normal 9-20 [facility] Work Phone: Comment on above: PATIENT WAS FASTINGP ERFORMED BY: JAMA LabCo Sbwxqt2676 [facility] [id number] TSH (90084)Ordered By: Hermelindo novoa [employer] Worker on 05-23-2010 TSH Qn 1.350 {uIU/mL} Normal 0.450-4.50 0 [facility] Work Phone: Comment on above: PATIENT WAS FASTINGP ERFORMED BY: JAMA [facility] Wppeec8872 [facility] [id number] Blood Glucose , Office (8296 2)Ordered By: Yudith Vaz on 01-31-2010 Glucose Glucometer (BldC) [Moles/Vol] 98 1 Normal [facility] Work Phone: HgA1C , Office (70978)Ordere d By: Yudith Vaz on 01-31-2010 HbA1c (Bld) [Mass fraction] 5.8 % Normal 4.6 - 7.1 [facility] Work Phone: Blood Glucose , Office (8296 2)Ordered By: Yudith Vaz on 10-13-2009 Glucose Glucometer (BldC) [Moles/Vol] 98 1 Normal [facility] Work Phone: HgA1C , Office (82439)Ordere d By: Yudith Vaz on 10-13-2009 HbA1c (Bld) [Mass fraction] 5.7 % Normal 4.6 - 7.1 [facility] Work Phone: LIPOPROTEIN, BLD, BY NMR (13 481)Ordered By: Customer Orders Clerk on 09-30-2009 Cholesterol [Mass/Vol] 231 mg/dL Abnormal [facility] Work Phone: Comment on above: PATIENT NOT FASTINGP ERFORMED BY: Edward Cameron [place] [id number] Information: [id number],[id number] Cholesterol in HDL [Mass/Vol] 0.9 umol/L Abnormal [facility] Work Phone: Comment on above: PATIENT NOT FASTINGP ERFORMED BY: Edward HdzCMP.LY [address] [id number] Information: 319337,[id number] Cholesterol in HDL [Mass/Vol] 49 mg/dL Normal [facility] Work Phone: Comment on above: PATIENT NOT FASTINGP ERFORMED BY: S[address] [id number] Information: 859626,[id number] Cholesterol in LDL [Mass/Vol] 161 mg/dL Abnormal [facility] Work Phone: Comment on above: LDL-C is inaccurate if patient is nonfasting..Optimal < 100Above optimal 100 - 129Borderline 130 - 159High 160 - 189Very high > 189. PATIENT NOT FASTINGP ERFORMED BY: S[address] [id number] Information: 704540,R57584 Lipoprotein.alpha [Moles/Vol] 34.0 umol/L Normal [facility] Work Phone: Comment on above: PATIENT NOT FASTINGP ERFORMED BY: S[address] [id number] Information: 992982,S83955 Lipoprotein.beta.subp article [Entitic length] 20.3 nm Abnormal [...] PATIENT NOT FASTINGP ERFORMED BY: S7 [employer] Xuh1395 [facility] [id number] Information: 431522,[id number] Lipoprotein.beta.subp article [Moles/Vol] 2049 nmol/L Abnormal Comprehensiv e Internal Medicine Work Phone: Comment on above: Low < 1000Moderate 1 000 - 1299Borderline-High 1300 - 1599High 1600 - 2000Very High > 2000 PATIENT NOT FASTINGP ERFORMED BY: S7 [employer] Sqe4486 [facility] [id number] Information: 569401,[id number] Lipoprotein.beta.subp article.small [Moles/Vol] 1213 nmol/L Abnormal [facility] Work Phone: Comment on above: PATIENT NOT FASTINGP ERFORMED BY: S7 [employer] Osm6708 [facility] [id number] Information: 672724,F21024 Triglyceride [Mass/Vol] 106 mg/dL Normal [facility] Work Phone: Comment on above: PATIENT NOT FASTINGP ERFORMED BY: S7 [employer] Abq1185 [facility] [id number] Information: [id number],[id number] LIPOPROTEIN, BLD, BY NMR (88948) 5.5 nmol/L Abnormal [facility] Work Phone: Comment on above: PATIENT NOT FASTINGP ERFORMED BY: S7 [employer] Lln5816 [facility] CenterRalSuburban Community Hospital [id number] Information: 503881,[id number] LIPOPROTEIN, BLD, BY NMR (66581) 1213 nmol/L Abnormal [facility] Work Phone: Comment on above: PATIENT NOT FASTINGP ERFORMED BY: S7 [employer] Wdu2194 [facility] [id number] Information: 784862,S88290 LIPOPROTEIN, BLD, BY NMR (61025) < 8.3 Abnormal [facility] Work Phone: Comment on above: Small LDL-P, LDL Par ticle Size, Large HDL-P, Large VLDL-PVLDL Size, HDL Size, HDL Particle, and LP-IR Scorehave been validated by [employer] but not cleared by US FDA;the clinical utility of these test results has not been fully established. PATIENT NOT FASTINGP ERFORMED BY: S7 [employer] Ahg3944 [facility] [id number] Information: 380608,[id number] LIPOPROTEIN, BLD, BY NMR (36482) 20.3 nm Abnormal [facility] Work Phone: Comment on above: PATIENT NOT FASTINGP ERFORMED BY: S7 LipoSciCMP.LY Egp6363 [facility] [id number] Information: 467630,[id number] LIPOPROTEIN, BLD, BY NMR (02373) 83 1 Abnormal [facility] Work [...] >63 PATIENT NOT FASTINGP ERFORMED BY: S7 LipoSciCMP.LY Ieo9181 [facility] [id number] Information: 984404,[id number] LIPOPROTEIN, BLD, BY NMR (11317) 56.5 nm Abnormal [facility] Work Phone: Comment on above: PATIENT NOT FASTINGP ERFORMED BY: S7 LipoSciCMP.LY E[address] [place] [address] [id number] Information: 520962,[id number] Blood Glucose , Office (6496 2)Ordered By: Yudith Vaz on 06-09-2009 Glucose Glucometer (BldC) [Moles/Vol] 94 1 Normal [facility] Work Phone: HgA1C , Office (76557)Ordere d By: Yudith Vaz on 06-09-2009 HbA1c (Bld) [Mass fraction] 5.6 % Normal 4.6 - 7.1 [facility] Work Phone: LIPOPROTEIN, BLD, BY NMR (61 771)Ordered By: Customer Orders Clerk on 05-24-2009 Cholesterol [Mass/Vol] 210 mg/dL Abnormal [facility] Work Phone: Comment on above: PATIENT WAS FASTINGP ERFORMED BY: S7 LipoSciCMP.LY Dll9965 [facility] [id number] Information: 793568,[id number] Cholesterol in HDL [Mass/Vol] mg/dL Abnormal [facility] Work Phone: Comment on above: PATIENT WAS FASTINGP ERFORMED BY: S7 [employer] Ezz4741 [facility] [id number] Information: 937727,G54411 Cholesterol in HDL [Mass/Vol] 45 mg/dL Normal [facility] Work Phone: Comment on above: PATIENT WAS FASTINGP ERFORMED BY: S7 LipoScimercyone [facility] Iib0057 [facility] [id number] Information: 377772,L15578 Cholesterol in LDL [Mass/Vol] 134 mg/dL Abnormal [facility] Work Phone: Comment on above: .Optimal < 100Above optimal 100 - 129Borderline 130 - 159High 160 - 189Very high > 189. PATIENT WAS FASTINGP ERFORMED BY: S7 LipoScimercyone [facility] Wcp5606 [facility] [id number] Information: 568682,K31264 Lipoprotein.alpha [Moles/Vol] 30.9 umol/L Normal [facility] Work Phone: Comment on above: PATIENT WAS FASTINGP ERFORMED BY: S7 LipoScimercyone [facility] Lif6805 [facility] [id number] Information: 572345,S24114 Lipoprotein.beta.subp article [Entitic length] 20.3 nm Abnormal [facility] Work Phone: Comment on above: PATIENT WAS FASTINGP ERFORMED BY: S7 [employer] Ugu9628 [facility] [id number] Information: 479774,U73271 Lipoprotein.beta.subp article [Moles/Vol] 1873 nmol/L Abnormal Comprehensiv e Internal Medicine Work Phone: Comment on above: Low < 1000Moderate 1 000 - 1299Borderline-High 1300 - 1599High 1600 - 2000Very High > 2000. PATIENT WAS FASTINGP ERFORMED BY: S7 [employer] Myv3087 [facility] [id number] Information: 465009,H54188 Lipoprotein.beta.subp article.small [Moles/Vol] 985 nmol/L Abnormal [facility] Work Phone: Comment on above: PATIENT WAS FASTINGP ERFORMED BY: S7 [employer] Bqr5888 [facility] [id number] Information: 064094,V65862 Triglyceride [Mass/Vol] 153 mg/dL Abnormal [facility] Work Phone: Comment on above: PATIENT WAS FASTINGP ERFORMED BY: S7 [employer] Zwa9968 [facility] [id number] Information: 136762,L68427 LIPOPROTEIN, BLD, BY NMR (34607) < 8.3 Abnormal [facility] Work Phone: Comment on above: Small LDL-P, LDL Par ticle Size, Large HDL-P, Large VLDL-PVLDL Size, HDL Size, HDL Particle, and LP-IR Scorehave been validated by [employer] but not cleared by US FDA;the clinical utility of these test results has not been fully established. PATIENT WAS FASTINGP ERFORMED BY: S7 [employer] Phm5309 [facility] [id number] Information: 317005,[id number] LIPOPROTEIN, BLD, BY NMR (32108) 76 1 Abnormal [facility] Work [...] PATIENT WAS FASTINGP ERFORMED BY: S7 [employer] S[address] [place] [address] [id number] Information: 427263,E03869 LIPOPROTEIN, BLD, BY NMR (39708) 51.1 nm Abnormal [facility] Work Phone: Comment on above: PATIENT WAS FASTINGP ERFORMED BY: S7 [employer] Eye6075 [facility] [id number] Information: 459752,E26497 LIPOPROTEIN, BLD, BY NMR (77751) 985 nmol/L Abnormal [facility] Work Phone: Comment on above: PATIENT WAS FASTINGP ERFORMED BY: S7 [employer] Joz1001 [facility] [id number] Information: 584295,G94339 LIPOPROTEIN, BLD, BY NMR (61639) 20.3 nm Abnormal [facility] Work Phone: Comment on above: PATIENT WAS FASTINGP ERFORMED BY: S7 [employer] Tjd6438 [facility] [id number] Information: 218889,J09635 LIPOPROTEIN, BLD, BY NMR (44981) 5.7 nmol/L Abnormal [facility] Work Phone: Comment on above: PATIENT WAS FASTINGP ERFORMED BY: S7 [employer] Cfg6208 [facility] [id number] Information: [id number],M76048 Blood Glucose , Office (2296 2)Ordered By: Yudith Vaz on 01-25-2009 Glucose Glucometer (BldC) [Moles/Vol] 106 1 Normal [facility] Work Phone: Comment on above: done km HgA1C , Office (58791)Ordere d By: Yudith Vaz on 01-25-2009 HbA1c (Bld) [Mass fraction] 5.5 % Normal 4.6 - 7.1 [facility] Work Phone: Comment on above: done km CBC WITH MANUAL DIFF (15798) Ordered By: Subha Camacho on 01-20-2009 Basophils (Bld) [#/Vol] 0.1 {x10E3/uL} Normal 0.0-0.2 [facility] Work Phone: Comment on above: PATIENT WAS FASTINGP ERFORMED BY: CB [facility] Pxnlbz4706 [address] RoadDuin [place] [id number] Basophils/100 WBC (Bld) 1 % Normal 0-3 [facility] Work Phone: Comment on above: PATIENT WAS FASTINGP ERFORMED BY: CB [facility] Aktwbk1422 [address] RoadDublin [place] [id number] Eosinophils (Bld) [#/Vol] 0.2 {x10E3/uL} Normal 0.0-0.4 [facility] Work Phone: Comment on above: PATIENT WAS FASTINGP ERFORMED BY: JAMA LabAdarsh Qblpqc4921 [address] [facility] [id number] Eosinophils/100 WBC (Bld) 2 % Normal 0-7 [facility] Work Phone: Comment on above: PATIENT WAS FASTINGP ERFORMED BY: [facility]6370 [address] [facility] [id number] Erythrocyte distribution width (RBC) [Ratio] 12.5 % Normal 11.7-15.0 [facility] Work Phone: Comment on above: PATIENT WAS FASTINGP ERFORMED BY: [facility] Ilbgix8681 [address] [facility] [id number] Hematocrit (Bld) [Volume fraction] 42.5 % Normal 36.0-50.0 [facility] Work Phone: Comment on above: PATIENT WAS FASTINGP ERFORMED BY: [facility]6370 [address] [facility] [id number] Hemoglobin (Bld) [Mass/Vol] 14.9 g/dL Normal 12.5-17.0 [facility] Work Phone: Comment on above: PATIENT WAS FASTINGP ERFORMED BY: [facility]6370 [address] [facility] [id number] Lymphocytes (Bld) [#/Vol] 2.3 {x10E3/uL} Normal 0.7-4.5 [facility] Work Phone: Comment on above: PATIENT WAS FASTINGP ERFORMED BY: [facility]6370 [address] [facility] [id number] Lymphocytes/100 WBC (Bld) 28 % Normal 14-46 [facility] Work Phone: Comment on above: PATIENT WAS FASTINGP ERFORMED BY: LabCo Mwlbig0784 [address] [facility] [id number] MCH (RBC) [Entitic mass] 31.2 pg Normal 27.0-34.0 [facility] Work Phone: Comment on above: PATIENT WAS FASTINGP ERFORMED BY: JAMA [facility]Co Cvxurf4138 [address] [facility] [place] [id number] MCHC (RBC) [Mass/Vol] 35.0 g/dL Normal 32.0-36.0 [facility] prehensive Internal Medicine Work Phone: Comment on above: PATIENT WAS FASTINGP ERFORMED BY: LabCo Ecsksh9935 [facility] [id number] MCV (RBC) [Entitic vol] 89 fL Normal 80-98 [facility] Work Phone: Comment on above: PATIENT WAS FASTINGP ERFORMED BY: LabAdarsh Tmrjre7008 [facility] [id number] Monocytes (Bld) [#/Vol] 0.6 {x10E3/uL} Normal 0.1-1.0 [facility] Work Phone: Comment on above: PATIENT WAS FASTINGP ERFORMED BY: [facility] Geiddo9964 [facility] [id number] Monocytes/100 WBC (Bld) 8 % Normal 4-13 [facility] Work Phone: Comment on above: PATIENT WAS FASTINGP ERFORMED BY: LabAdarsh Bqtczm9856 [facility] [id number] Neutrophils (Bld) [#/Vol] 4.9 {x10E3/uL} Normal 1.8-7.8 [facility] Work Phone: Comment on above: PATIENT WAS FASTINGP ERFORMED BY: [facility]Co Nqlhqe5024 [facility] [place] [id number] Neutrophils/100 WBC (Bld) 61 % Normal 40-74 [facility] Work Phone: Comment on above: PATIENT WAS FASTINGP ERFORMED BY: [facility] Tlxdhv2691 [facility] [place] [id number] Platelets (Bld) [#/Vol] 204 {x10E3/uL} Normal 140-415 [facility] Work Phone: Comment on above: PATIENT WAS FASTINGP ERFORMED BY: JAMA [facility] Yivgqv0801 [facility] [place] [id number] RBC (Bld) [#/Vol] 4.77 {x10E6/uL} Normal 4.10-5.60 [facility] Work Phone: Comment on above: PATIENT WAS FASTINGP ERFORMED BY: JAMA [facility] Azqtrv8446 [facility] [place] [id number] WBC (Bld) [#/Vol] 8.1 {x10E3/uL} Normal 4.0-10.5 [facility] Work Phone: Comment on above: PATIENT WAS FASTINGP ERFORMED BY: JAMA Jiménezlin6370 [facility] [id number] Glucose, PP/2 Hour ([id number])Or dered By: Subha Camacho on 01-20-2009 Glucose 2 Hr post meal [Mass/Vol] 158 mg/dL Abnormal 65-139 [facility] Work Phone: Comment on above: PATIENT WAS FASTINGC linical Information: [id number] 75G DRAWN@ 11:15AM PERFORMED BY: JAMA Nogueira6370 [facility] [id number] LIPOPROTEIN, BLD, BY NMR (18 455)Ordered By: Subha Camacho on 01-20-2009 Cholesterol [Mass/Vol] 212 mg/dL Abnormal [facility] Work Phone: Comment on above: PATIENT WAS FASTINGC linical Information: [id number] PERFORMED BY: JAMA LabCothania JiménezGmzoxc7197 [facility] [place] [id number] Cholesterol in HDL [Mass/Vol] 45 mg/dL Normal [facility] Work Phone: Comment on above: PATIENT WAS FASTINGC linical Information: [id number] PERFORMED BY: JAMA GarciaCothania JiménezDiawap0390 [facility] [id number] Cholesterol in HDL [Mass/Vol] mg/dL Abnormal [facility] Work Phone: Comment on above: PATIENT WAS FASTINGC linical Information: [id number] PERFORMED BY: [employer]6370 Tech21[facility] [id number] Cholesterol in LDL [Mass/Vol] 123 mg/dL Abnormal [facility] Work Phone: Comment on above: . Optimal < 100 Abov e optimal 100 - 129 Borderline 130 - 159 High 160 - 189 Very high > 189 . PATIENT WAS FASTINGC linical Information: [id number] PERFORMED BY: [employer]6370 Tech21[facility] [id number] Triglyceride [Mass/Vol] 221 mg/dL Abnormal [facility] Work Phone: Comment on above: PATIENT WAS FASTINGC linical Information: [id number] PERFORMED BY: [employer]6370 Tech21[facility] [id number] LIPOPROTEIN, BLD, BY NMR ([id number]) [facility] Normal [facility] Work Phone: Comment on above: High Risk: LDL-P < 1 000; Secondary goal: Small LDL-P < 527Moderately High-Risk: LDL-P < 1300; Secondary goal: Small LDL-P < 527 PATIENT WAS FASTINGC linical Information: [id number] PERFORMED BY: [employer]6370 Tech21[facility] [id number] LIPOPROTEIN, BLD, BY NMR ([id number]) 2068 nmol/L Abnormal [facility] Work Phone: Comment on above: . Optimal < 1000 Abo ve optimal 1000 - 1299 Borderline 1300 - 1599 High 1600 - 2000 Very high > 2000 . PATIENT WAS FASTINGC linical Information: [id number] PERFORMED BY: [employer]70 Tech21[facility] [id number] LIPOPROTEIN, BLD, BY NMR ([id number]) 20.2 nm Abnormal [facility] Work Phone: Comment on above: . Small (Pattern B) 18.0 - 20.5 Large (Pattern A) 20.6 - 23.0 . PATIENT WAS FASTINGC linical Information: [id number] PERFORMED BY: JAMA [employer]6370 Tech21[facility] [id number] LIPOPROTEIN, BLD, BY NMR ([id number]) 14.2 nmol/L Abnormal [facility] Work Phone: Comment on above: Small LDL-P, LDL Par ticle Size, Large HDL-P and Large VLDL- Phave been validated by [employer] but not cleared by US FDA;the clinical utility of these test results has not been fully established. PATIENT WAS FASTINGC linical Information: [id number] PERFORMED BY: JAMA PopJax6370 [facility] [id number] LIPOPROTEIN, BLD, BY NMR ([id number]) 1368 nmol/L Abnormal [facility] Work Phone: Comment on above: . Low < 117 Moderate 117 - 526 Borderline 527 - 839 High > 839 . PATIENT WAS FASTINGC linical Information: [id number] PERFORMED BY: JAMA LabStrategic Global Investmentsrp Mjqayr7707 Jimenez [facility] CompanyAn[facility] [id number] METABOLIC PANEL, COMPREHENSI VE ([id number])Ordered By: Subha Camacho on 01-20-2009 Albumin [Mass/Vol] 4.7 g/dL Normal 3.5-5.5 [facility] Internal Medicine Work Phone: Comment on above: PATIENT WAS FASTINGP ERFORMED BY: JAMA [facility] Ehafyy6848 [facility] [id number] Albumin/Globulin [Mass ratio] 2.0 {ratio} Normal 1.1-2.5 [facility] Work Phone: Comment on above: PATIENT WAS FASTINGP ERFORMED BY: JAMA LabStrategic Global Investmentsrp Idplia1259 [facility] [id number] ALP [Catalytic activity/Vol] 72 [iU]/L Normal 25-150 [facility] Work Phone: Comment on above: PATIENT WAS FASTINGP ERFORMED BY: JAMA [employer]Str[employer] Feelrc6906 [facility] [id number] ALT [Catalytic activity/Vol] 43 [iU]/L Normal 0-55 [facility] Internal Medicine Work Phone: Comment on above: PATIENT WAS FASTINGP ERFORMED BY: [facility] Kqbovh0897 [facility] [place] [id number] AST [Catalytic activity/Vol] 25 [iU]/L Normal 0-40 [facility] Internal Medicine Work Phone: Comment on above: PATIENT WAS FASTINGP ERFORMED BY: LabCo Lbiboi5850 Jimenez [facility] [id number] Bilirubin [Mass/Vol] 0.5 mg/dL Normal 0.1-1.2 [facility] Work Phone: Comment on above: PATIENT WAS FASTINGP ERFORMED BY: [facility] Rhdasj2429 Jimenez [facility] [id number] Calcium [Mass/Vol] 10.2 mg/dL Normal 8.5-10.6 [facility] Internal Medicine Work Phone: Comment on above: PATIENT WAS FASTINGP ERFORMED BY: [facility] Qbyxdb3561 Jimenez [facility] [id number] Chloride [Moles/Vol] 102 mmol/L Normal 97-108 [facility] Work Phone: Comment on above: PATIENT WAS FASTINGP ERFORMED BY: [facility] Gafvtv9298 Jimenez [facility] [id number] CO2 [Moles/Vol] 22 mmol/L Normal 20-32 [facility] Internal Medicine Work Phone: Comment on above: PATIENT WAS FASTINGP ERFORMED BY: [facility] Khcqeo2290 [facility] [place] [id number] Creatinine [Mass/Vol] 0.98 mg/dL Normal 0.76-1.27 [facility] Internal Medicine Work Phone: Comment on above: PATIENT WAS FASTINGP ERFORMED BY: [facility] Ifkbjt6852 [facility] [place] [id number] GFR/1.73 sq M predicted among blacks MDRD (S/P/Bld) [Vol rate/Area] mL/min/{1.73_m2} Normal [facility] Internal Medicine Work Phone: Comment on above: Note: Persistent red uction for 3 months or more in an eGFR<60 mL/min/1.73 m2 defines CKD. Patients with eGFR values>/=60 mL/min/1.73 m2 may also have CKD if evidence of persistentproteinuria is present. Additional information may be found [email or web address]. PATIENT WAS FASTINGP ERFORMED BY: JAMA [facility] Boochc8141 [facility] [id number] GFR/1.73 sq M.predicted MDRD (S/P/Bld) [Vol rate/Area] mL/min/{1.73_m2} Normal [facility] Internal Medicine Work Phone: Comment on above: PATIENT WAS FASTINGP ERFORMED BY: JAMA [facility] Houtwg4420 [facility] [id number] Globulin (S) [Mass/Vol] 2.4 g/dL Normal 1.5-4.5 [facility] Internal Medicine Work Phone: Comment on above: PATIENT WAS FASTINGP ERFORMED BY: JAMA [facility] Rcsrxu9987 [facility] [id number] Glucose [Mass/Vol] 102 mg/dL Abnormal 65-99 [facility] Internal Medicine Work Phone: Comment on above: PATIENT WAS FASTINGP ERFORMED BY: JAMA [facility] Qekpbp0540 [facility] [id number] Potassium [Moles/Vol] 4.3 mmol/L Normal 3.5-5.2 [facility] Internal Medicine Work Phone: Comment on above: PATIENT WAS FASTINGP ERFORMED BY: [facility] Lblkdu2400 Jimenez [facility] [id number] Protein [Mass/Vol] 7.1 g/dL Normal 6.0-8.5 [facility] Internal Medicine Work Phone: Comment on above: PATIENT WAS FASTINGP ERFORMED BY: [facility] Ulmqlx6164 [facility] [id number] Sodium [Moles/Vol] 139 mmol/L Normal 135-145 [facility] Internal Medicine Work Phone: Comment on above: PATIENT WAS FASTINGP ERFORMED BY: [facility] Tifava8613 [facility] [id number] Urea nitrogen [Mass/Vol] 16 mg/dL Normal 5-26 [facility] Work Phone: Comment on above: PATIENT WAS FASTINGP ERFORMED BY: CB [facility] Gnmlfw9171 [facility] [id number] Urea nitrogen/Creatinine [Mass ratio] 16 mg/mg Normal 8-27 [facility] Work Phone: Comment on above: PATIENT WAS FASTINGP ERFORMED BY: [facility] Kschrb7193 [facility] [id number] MICROALBUMINOrdered By: Ashley Camacho on 01-20-2009 Albumin DL <= 20 mg/L (U) [Mass/Vol] 5.3 ug/mL Normal 0.0-17.0 [facility] Work Phone: Comment on above: PATIENT WAS FASTINGP ERFORMED BY: [facility] Uxrwdz0438 [facility] [id number] Albumin/Creatinine (U) [Mass ratio] 4.6 {mg/g_creat} Normal 0.0-30.0 [facility] Work Phone: Comment on above: PATIENT WAS FASTINGP ERFORMED BY: [facility] Nlzsng7827 [facility] [id number] Creatinine (U) [Mass/Vol] 115.2 mg/dL Normal 22.0-328.0 [facility] Work Phone: Comment on above: PATIENT WAS FASTINGP ERFORMED BY: [facility] Okhayo3802 [facility] [id number] PSA (PROSTATE SPECIFIC ANTIG EN) (V76.44)Ordered By: Subha Camacho on 01-20-2009 Prostate specific Ag [Mass/Vol] 1.6 ng/mL Normal 0.0-4.0 [facility] Work Phone: Comment on above: Steve ECLIA methodol ogy. .According to the [place] [employer], Serum PSA shoulddecrease and remain [...] yr; PATIENT WAS FASTINGPERFORMED BY: CB [facility] Dxpvez9088 Jimenez RoadDublin [place] [id number] TSH ([id number])Ordered By: Rosalind Camacho on 01-20-2009 TSH Qn 1.500 {uIU/mL} Normal 0.450-4.50 0 [facility] Work Phone: Comment on above: PATIENT WAS FASTINGP ERFORMED BY: CB [facility] Kdxzkn8632 Jimenez RoadDublin [place] [id number] URINALYSIS, W/ MICRO ([id number]) Ordered By: Subha Camacho on 01-20-2009 Appearance (U) Clear Normal Comprehens johann Internal Medicine Work Phone: Comment on above: PATIENT WAS FASTINGP ERFORMED BY: CB [facility] Styffn8441 Jimenez RoadDublin [place] [id number] Bilirubin Ql (U) Negative Normal Comprehe nsive Internal Medicine Work Phone: Comment on above: PATIENT WAS FASTINGP ERFORMED BY: CB [facility] Eomodh5538 Jimenez RoadDublin [place] [id number] Color (U) Yellow Normal [facility] Work Phone: Comment on above: PATIENT WAS FASTINGP ERFORMED BY: CB [facility] Wupimm7360 Jimenez RoadDublin [place] [id number] Glucose Ql (U) Negative Normal Comprehens johann Internal Medicine Work Phone: Comment on above: PATIENT WAS FASTINGP ERFORMED BY: CB [facility] Iwoeyn0555 Jimenez RoadDublin [place] [id number] Hemoglobin Ql (U) Negative Normal Compreh ensive Internal Medicine Work Phone: Comment on above: PATIENT WAS FASTINGP ERFORMED BY: JAMA Nogueira6370 [facility] [id number] Ketones Ql (U) Negative Normal Comprehens johann Internal Medicine Work Phone: Comment on above: PATIENT WAS FASTINGP ERFORMED BY: JAMA Nogueira6370 [facility] [id number] Leukocyte esterase Test strip Ql (U) Negative Normal [facility] Work Phone: Comment on above: PATIENT WAS FASTINGP ERFORMED BY: JAMA Nogueira6370 [facility] [id number] Microscopic observation LM Nom (Urine sed) MICRON Normal [facility] Work Phone: Comment on above: Microscopic follows if indicated. PATIENT WAS FASTINGP ERFORMED BY: JAMA Jiménezlin6370 [facility] [id number] Microscopic observation LM Nom (Urine sed) See below: Normal [facility] Work Phone: Comment on above: PATIENT WAS FASTINGP ERFORMED BY: JAMA Nogueira6370 [facility] [id number] Nitrite Ql (U) Negative Normal Comprehens johann Internal Medicine Work Phone: Comment on above: PATIENT WAS FASTINGP ERFORMED BY: JAMA Jiménezlin6370 [facility] [id number] pH (U) 5.5 [pH] Normal 5.0-7.5 [facility] Work Phone: Comment on above: PATIENT WAS FASTINGP ERFORMED BY: JAMA Jiménezlin6370 [facility] [id number] Protein Ql (U) Negative Normal Comprehens johann Internal Medicine Work Phone: Comment on above: PATIENT WAS FASTINGP ERFORMED BY: JAMA Jiménezlin6370 [facility] [id number] Specific gravity (U) [Rel density] 1.017 1 Normal 1.005-1.03 0 [facility] Work Phone: Comment on above: PATIENT WAS FASTINGP ERFORMED BY: [facility]6370 [facility] [id number] Urobilinogen Test strip (U) [Mass/Vol] 0.2 mg/dL Normal 0.0-1.9 Comprehensi Internal Medicine Work Phone: Comment on above: PATIENT WAS FASTINGP ERFORMED BY: [facility]6370 [facility] [id number] Vital Signs Date Time Vital Sign Value Performing Clinician Facility 11-08-2023 10:070400 Body height 172.7 cm Patrice Edwards Jr., MD Work Phone: [facility] 10-25-2023 13:27-0400 Body height 172.7 cm Patrice Edwards Jr., MD Work Phone: [facility] 10-25-2023 13:27-0400 Diastolic blood pressure 82 mm[Hg] Patrice Edwards Jr., MD Work Phone: [facility] 10-25-2023 13:27-0400 Heart rate 77 /min Patrice Edwards Jr., MD Work Phone: [facility] 10-25-2023 13:27-0400 SaO2% (BldA) [Mass fraction] 98 % Patrice Edwards Jr., MD Work Phone: [facility] 10-25-2023 13:27-0400 Systolic blood pressure 140 mm[Hg] Patrice Edwards Jr., MD Work Phone: [facility] 10-02-2023 10:01-0400 Body mass index (BMI) [Ratio] 31.62 kg/m2 Justine Leary APRN.HELPER TEACHER Work Phone: [facility] 10-02-2023 10:01-0400 Body weight 93 kg Justine Leary APRN.HELPER TEACHER Work Phone: [facility] 10-02-2023 10:01-0400 Diastolic blood pressure 90 mm[Hg] Justine Tannhof SURVEYOR OIL WELL DIRECTIONAL.HELPER TEACHER Work Phone: [facility] 10-02-2023 10:01-0400 Heart rate 77 /min Justine Tannhof SURVEYOR OIL WELL DIRECTIONAL.HELPER TEACHER Work Phone: [facility] 10-02-2023 10:01-0400 Respiratory rate 16 /min Justine Tannhof SURVEYOR OIL WELL DIRECTIONAL.HELPER TEACHER Work Phone: [facility] 10-02-2023 10:01-0400 SaO2% (BldA) [Mass fraction] 97 % Justine Tannhof SURVEYOR OIL WELL DIRECTIONAL.HELPER TEACHER Work Phone: [facility] 10-02-2023 10:01-0400 Systolic blood pressure 136 mm[Hg] Justine Tannhof SURVEYOR OIL WELL DIRECTIONAL.HELPER TEACHER Work Phone: [facility] 09-12-2023 13:07-0400 Body mass index (BMI) [Ratio] 31.61 kg/m2 Justine Tannhof SURVEYOR OIL WELL DIRECTIONAL.HELPER TEACHER Work Phone: [facility] 09-12-2023 13:07-0400 Body weight 92.99 kg Justine Tannhof SURVEYOR OIL WELL DIRECTIONAL.HELPER TEACHER Work Phone: [facility] 09-12-2023 13:07-0400 Diastolic blood pressure 78 mm[Hg] Justine Tannhof SURVEYOR OIL WELL DIRECTIONAL.HELPER TEACHER Work Phone: [facility] 09-12-2023 13:07-0400 Heart rate 89 /min Justine Tannhof SURVEYOR OIL WELL DIRECTIONAL.HELPER TEACHER Work Phone: [facility] 09-12-2023 13:07-0400 Respiratory rate 16 /min Justine Tannhof SURVEYOR OIL WELL DIRECTIONAL.HELPER TEACHER Work Phone: [facility] 09-12-2023 13:07-0400 SaO2% (BldA) [Mass fraction] 97 % Justine Tannhof SURVEYOR OIL WELL DIRECTIONAL.HELPER TEACHER Work Phone: [facility] 09-12-2023 13:07-0400 Systolic blood pressure 126 mm[Hg] Justine Tannhof SURVEYOR OIL WELL DIRECTIONAL.HELPER TEACHER Work Phone: [facility] 11-20-2022 10:10-0400 Body height 171.5 cm Justine Samuelhof SURVEYOR OIL WELL DIRECTIONAL.HELPER TEACHER Work Phone: [facility] 11-20-2022 10:10-0400 Body weight 93.44 kg Justine Samuelhof SURVEYOR OIL WELL DIRECTIONAL.HELPER TEACHER Work Phone: [facility] 11-20-2022 10:10-0400 Diastolic blood pressure 84 mm[Hg] Justine Samuelhof SURVEYOR OIL WELL DIRECTIONAL.HELPER TEACHER Work Phone: [facility] 11-20-2022 10:10-0400 Heart rate 72 /min Justine Samuelhof SURVEYOR OIL WELL DIRECTIONAL.HELPER TEACHER Work Phone: [facility] 11-20-2022 10:10-0400 Respiratory rate 16 /min Justine Samuelhof SURVEYOR OIL WELL DIRECTIONAL.HELPER TEACHER Work Phone: [facility] 11-20-2022 10:10-0400 SaO2% (BldA) [Mass fraction] 97 % Justine Samuelhof SURVEYOR OIL WELL DIRECTIONAL.HELPER TEACHER Work Phone: [facility] 11-20-2022 10:10-0400 Systolic blood pressure 130 mm[Hg] Justine Samuelhof SURVEYOR OIL WELL DIRECTIONAL.HELPER TEACHER Work Phone: [facility] 09-24-2013 15:32-0400 BMI (Body Mass Index) 32.09 kg/m2 Subha Mireille [facility] Internal Medicine Work Phone: 09-24-2013 15:32-0400 Body weight 95.74 kg Subha Camacho [facility] Internal Medicine Work Phone: 09-24-2013 15:32-0400 BP Diastolic 78 mm[Hg] Subha Camacho [facility] Internal Medicine Work Phone: Comment on above: Patient Position: Sitting; Cuff Location : Left Arm; Cuff Size: Standard 09-24-2013 15:32-0400 BP Systolic 122 mm[Hg] [facility] Work Phone: Comment on above: Patient Position: Sitting; Cuff Location : Left Arm; Cuff Size: Standard 09-24-2013 15:320400 BSA (Body Surface Area) 2.09 m2 Subha Camacho [facility] Internal Medicine Work Phone: 09-24-2013 15:320400 Height 172.72 cm Subha Camacho [facility] Internal Medicine Work Phone: 09-24-2013 15:32-0400 Pulse (Heart Rate) 70 /min Subha Camacho [facility] Internal Medicine Work Phone: Comment on above: Pattern: Regular 09-24-2013 15:32-0400 Respiratory Rate 18 /min Subha Camacho [facility] Internal Medicine Work Phone: 07-18-2013 15:01-0400 BMI (Body Mass Index) 32.09 kg/m2 Subha Camacho [facility] Internal Medicine Work Phone: 07-18-2013 15:0400 Body weight 95.74 kg Subha Camacho [facility] Internal Medicine Work Phone: 07-18-2013 15:01-0400 BP Diastolic 82 mm[Hg] Subha Camacho [facility] Internal Medicine Work Phone: Comment on above: Patient Position: Sitting; Cuff Location : Left Arm; Cuff Size: Standard 07-18-2013 15:01-0400 BP Systolic 118 mm[Hg] Subha Camacho [facility] Internal Medicine Work Phone: Comment on above: Patient Position: Sitting; Cuff Location : Left Arm; Cuff Size: Standard 07-18-2013 15:01-0400 BSA (Body Surface Area) 2.09 m2 Subha Camacho [facility] Internal Medicine Work Phone: 07-18-2013 15:010400 Height 172.72 cm Subha Camacho [facility] Internal Medicine Work Phone: 07-18-2013 15:01-0400 Pulse (Heart Rate) 89 /min Subha Camacho [facility] Internal Medicine Work Phone: Comment on above: Pattern: Regular 07-18-2013 15:01-0400 Pulse Oximetry 98 % Subha Camacho [facility] Internal Medicine Work Phone: Comment on above: Room air 07-18-2013 15:01-0400 Respiratory Rate 18 /min Subha Camacho [facility] Internal Medicine Work Phone: Comment on above: Pattern: Unlabored 07-02-2013 15:16-0400 BMI (Body Mass Index) 32.09 kg/m2 [facility]ha [facility] Internal [facility] Work Phone: 07-02-2013 15:16-0400 Body weight 95.74 kg Subha Camacho [facility] Work Phone: 07-02-2013 15:16-0400 BP Diastolic 76 mm[Hg] Subha Camacho [facility] Internal Medicine Work Phone: Comment on above: Patient Position: Sitting; Cuff Location : Left Arm; Cuff Size: Large 07-02-2013 15:16-0400 BP Systolic 128 mm[Hg] Subha Camacho [facility] Internal Medicine Work Phone: Comment on above: Patient Position: Sitting; Cuff Location : Left Arm; Cuff Size: Large 07-02-2013 15:16-0400 BSA (Body Surface Area) 2.09 m2 Subha Camacho [facility] Work Phone: 07-02-2013 15:16-0400 Height 172.72 cm Subha Camacho [facility] Internal Medicine Work Phone: 07-02-2013 15:16-0400 Pulse (Heart Rate) 72 /min Subha Camacho [facility] Work Phone: Comment on above: Pattern: Regular 07-02-2013 15:16-0400 Pulse Oximetry 98 % Suhba Camacho [facility] Work Phone: Comment on above: Room air 07-02-2013 15:16-0400 Respiratory Rate 16 /min Subha Camacho [facility] Internal Medicine Work Phone: Comment on above: Pattern: Unlabored 06-11-2013 15:43-0400 BMI (Body Mass Index) 32.09 kg/m2 Subha [facility]ann Internal Medicine Work Phone: 06-11-2013 15:43-0400 Body Temperature 98.6 [degF] Subha Camacho [facility] Internal Medicine Work Phone: Comment on above: Method: Oral 06-11-2013 15:43-0400 Body weight 95.74 kg Subha Camacho [facility] Internal Medicine Work Phone: 06-11-2013 15:43-0400 BP Diastolic 84 mm[Hg] Subha Camacho [facility] Internal Medicine Work Phone: Comment on above: Patient Position: Sitting; Cuff Location : Left Arm; Cuff Size: Standard 06-11-2013 15:43-0400 BP Systolic 132 mm[Hg] Subha Camacho [facility] Internal Medicine Work Phone: Comment on above: Patient Position: Sitting; Cuff Location : Left Arm; Cuff Size: Standard 06-11-2013 15:43-0400 BSA (Body Surface Area) 2.09 m2 Subha Camacho [facility] Internal Medicine Work Phone: 06-11-2013 15:43-0400 Height 172.72 cm Subha Camacho [facility] Internal Medicine Work Phone: 06-11-2013 15:43-0400 Pulse (Heart Rate) 76 /min Subha Camacho [facility] Internal Medicine Work Phone: Comment on above: Pattern: Regular 06-11-2013 15:43-0400 Pulse Oximetry 98 % Subha Camacho [facility] Internal Medicine Work Phone: Comment on above: Room air 06-11-2013 15:43-0400 Respiratory Rate 16 /min Subha Camacho [facility] Internal Medicine Work Phone: Comment on above: Pattern: Unlabored 09-12-2012 10:59-0400 BMI (Body Mass Index) 31.94 kg/m2 Subha Camacho [facility] Internal Medicine Work Phone: 09-12-2012 10:59-0400 Body Temperature 98.4 [degF] Subha Camacho [facility] Internal Medicine Work Phone: Comment on above: Method: Oral 09-12-2012 10:59-0400 Body weight 95.28 kg Subha Camacho [facility] Internal Medicine Work Phone: 09-12-2012 10:59-0400 BP Diastolic 82 mm[Hg] Subha Camacho [facility] Internal Medicine Work Phone: Comment on above: Patient Position: Sitting; Cuff Location : Left Arm; Cuff Size: Large 09-12-2012 10:59-0400 BP Systolic 128 mm[Hg] Subha Camacho [facility] Internal Medicine Work Phone: Comment on above: Patient Position: Sitting; Cuff Location : Left Arm; Cuff Size: Large 09-12-2012 10:59-0400 BSA (Body Surface Area) 2.09 m2 Subha Camacho [facility] Internal Medicine Work Phone: 09-12-2012 10:59-0400 Height 172.72 cm Subha Camacho [facility] Internal Medicine Work Phone: 09-12-2012 10:59-0400 Pulse (Heart Rate) 60 /min Subha Camacho [facility] Internal Medicine Work Phone: Comment on above: Pattern: Regular 09-12-2012 10:59-0400 Respiratory Rate 16 /min Subha Camacho [facility] Internal Medicine Work Phone: Comment on above: Pattern: Unlabored 07-08-2012 08:57-0400 BMI (Body Mass Index) 31.68 kg/m2 Subha Camacho [facility] Internal Medicine Work Phone: 07-08-2012 08:57-0400 Body Temperature 97.8 [degF] Subha Camacho [facility] Internal Medicine Work Phone: Comment on above: Method: Oral 07-08-2012 08:57-0400 Body weight 94.52 kg Subha Camacho [facility] Internal Medicine Work Phone: 07-08-2012 08:57-0400 BP Diastolic 86 mm[Hg] Subha Camacho [facility] Internal Medicine Work Phone: Comment on above: Patient Position: Sitting; Cuff Location : Left Arm; Cuff Size: Large 07-08-2012 08:57-0400 BP Systolic 124 mm[Hg] Subha Camacho [facility] Internal Medicine Work Phone: Comment on above: Patient Position: Sitting; Cuff Location : Left Arm; Cuff Size: Large 07-08-2012 08:57-0400 BSA (Body Surface Area) 2.08 m2 Subha Camacho [facility] Internal Medicine Work Phone: 07-08-2012 08:57-0400 Height 172.72 cm Subha Camacho [facility] Internal Medicine Work Phone: 07-08-2012 08:57-0400 Pulse (Heart Rate) 72 /min Subha Camacho [facility] Internal Medicine Work Phone: Comment on above: Pattern: Regular 07-08-2012 08:57-0400 Respiratory Rate 20 /min Subha Camacho [facility] Internal Medicine Work Phone: Comment on above: Pattern: Unlabored 03-25-2012 15:55-0500 BMI (Body Mass Index) 32.6 kg/m2 Subha Camacho [facility] Internal Medicine Work Phone: 03-25-2012 15:55-0500 Body weight 97.27 kg Subha Camacho [facility] Internal Medicine Work Phone: 03-25-2012 15:55-0500 BP Diastolic 82 mm[Hg] Subha Camacho [facility] Internal Medicine Work Phone: Comment on above: Patient Position: Sitting; Cuff Location : Left Arm; Cuff Size: Large 03-25-2012 15:55-0500 BP Systolic 128 mm[Hg] Subha Camacho [facility] Internal Medicine Work Phone: Comment on above: Patient Position: Sitting; Cuff Location : Left Arm; Cuff Size: Large 03-25-2012 15:55-0500 BSA (Body Surface Area) 2.11 m2 Subha Camacho [facility] Internal Medicine Work Phone: 03-25-2012 15:55-0500 Height 172.72 cm Subha Camacho [facility] Internal Medicine Work Phone: 03-25-2012 15:55-0500 Pulse (Heart Rate) 64 /min Subha Camacho [facility] Internal Medicine Work Phone: Comment on above: Pattern: Regular 03-25-2012 15:55-0500 Respiratory Rate 16 /min Subha Camacho [facility] Internal Medicine Work Phone: Comment on above: Pattern: Unlabored 01-08-2012 15:48-0500 BMI (Body Mass Index) 31.65 kg/m2 [facility] Work Phone: 01-08-2012 15:48-0500 Body Temperature 97.8 [degF] Subha Camacho [facility] Internal Medicine Work Phone: Comment on above: Method: Oral 01-08-2012 15:48-0500 Body weight 94.43 kg Subha Camacho [facility] Internal Medicine Work Phone: 01-08-2012 15:48-0500 BP Diastolic 80 mm[Hg] Subha Camacho [facility] Internal Medicine Work Phone: Comment on above: Patient Position: Sitting; Cuff Location : Left Arm; Cuff Size: Standard 01-08-2012 15:48-0500 BP Systolic 118 mm[Hg] Subha Camacho [facility] Internal Medicine Work Phone: Comment on above: Patient Position: Sitting; Cuff Location : Left Arm; Cuff Size: Standard 01-08-2012 15:48-0500 BSA (Body Surface Area) 2.08 m2 Subha Camacho [facility] Internal Medicine Work Phone: 01-08-2012 15:48-0500 Height 172.72 cm Subha Camacho [facility] Internal Medicine Work Phone: 01-08-2012 15:48-0500 Pulse (Heart Rate) 64 /min Subha Camacho [facility] Internal Medicine Work Phone: Comment on above: Pattern: Regular 01-08-2012 15:48-0500 Respiratory Rate 16 /min Subha Camacho [facility] Internal Medicine Work Phone: Comment on above: Pattern: Unlabored 11-08-2011 16:10-0400 BMI (Body Mass Index) 31.65 kg/m2 [facility] Work Phone: 11-08-2011 16:10-0400 Body Temperature 97.9 [degF] Subha Camacho [facility] Internal Medicine Work Phone: Comment on above: Method: Oral 11-08-2011 16:10-0400 Body weight 94.43 kg Subha Camacho [facility] Internal Medicine Work Phone: 11-08-2011 16:10-0400 BP Diastolic 84 mm[Hg] Subha Camacho [facility] Internal Medicine Work Phone: Comment on above: Patient Position: Sitting; Cuff Location : Left Arm; Cuff Size: Large 11-08-2011 16:10-0400 BP Systolic 122 mm[Hg] Subha Camacho [facility] Internal Medicine Work Phone: Comment on above: Patient Position: Sitting; Cuff Location : Left Arm; Cuff Size: Large 11-08-2011 16:10-0400 BSA (Body Surface Area) 2.08 m2 Subha Camacho [facility] Internal Medicine Work Phone: 11-08-2011 16:10-0400 Height 172.72 cm Subha Camacho [facility] Internal Medicine Work Phone: 11-08-2011 16:10-0400 Pulse (Heart Rate) 60 /min Subha Camacho [facility] Internal Medicine Work Phone: Comment on above: Pattern: Regular 11-08-2011 16:10-0400 Respiratory Rate 20 /min Subha Camacho [facility] Internal Medicine Work Phone: Comment on above: Pattern: Unlabored 09-06-2011 15:50-0400 BMI (Body Mass Index) 31.65 kg/m2 Subha Camacho [facility] Internal Medicine Work Phone: 09-06-2011 15:50-0400 Body weight 94.43 kg Subha Camacho [facility] Internal Medicine Work Phone: 09-06-2011 15:50-0400 BP Diastolic 78 mm[Hg] Subha Camacho [facility] Internal Medicine Work Phone: Comment on above: Patient Position: Sitting; Cuff Location : Left Arm; Cuff Size: Standard 09-06-2011 15:50-0400 BP Systolic 124 mm[Hg] Subha Camacho [facility] Internal Medicine Work Phone: Comment on above: Patient Position: Sitting; Cuff Location : Left Arm; Cuff Size: Standard 09-06-2011 15:50-0400 BSA (Body Surface Area) 2.08 m2 Subha Camacho [facility] Internal Medicine Work Phone: 09-06-2011 15:50-0400 Height 172.72 cm Subha Camacho [facility] Internal Medicine Work Phone: 09-06-2011 15:50-0400 Pulse (Heart Rate) 68 /min Subha Camacho [facility] Internal Medicine Work Phone: Comment on above: Pattern: Regular 09-06-2011 15:50-0400 Respiratory Rate 18 /min Subha Camacho [facility] Internal Medicine Work Phone: Comment on above: Pattern: Unlabored 05-04-2011 07:32-0400 BMI (Body Mass Index) 31.86 kg/m2 Subha Camacho [facility] Internal Medicine Work Phone: 05-04-2011 07:32-0400 Body Temperature 97.3 [degF] Subha Camacho [facility] Internal Medicine Work Phone: 05-04-2011 07:32-0400 Body weight 95.06 kg Subha Camacho [facility] Internal Medicine Work Phone: 05-04-2011 07:32-0400 BP Diastolic 70 mm[Hg] Subha Camacho [facility] Internal Medicine Work Phone: Comment on above: Patient Position: Sitting; Cuff Location : Left Arm; Cuff Size: Large 05-04-2011 07:32-0400 BP Systolic 122 mm[Hg] Subha Camacho [facility] Internal Medicine Work Phone: Comment on above: Patient Position: Sitting; Cuff Location : Left Arm; Cuff Size: Large 05-04-2011 07:32-0400 BSA (Body Surface Area) 2.09 m2 Subha Camacho [facility] Internal Medicine Work Phone: 05-04-2011 07:32-0400 Height 172.72 cm Subha Camacho [facility] Internal Medicine Work Phone: 05-04-2011 07:32-0400 Pulse (Heart Rate) 60 /min Subha Camacho [facility] Internal Medicine Work Phone: Comment on above: Pattern: Regular 05-04-2011 07:32-0400 Respiratory Rate 16 /min Subha Camacho [facility] Internal Medicine Work Phone: Comment on above: Pattern: Unlabored 04-27-2011 07:44-0500 BMI (Body Mass Index) 31.93 kg/m2 Subha Camacho [facility] Internal Medicine Work Phone: 04-27-2011 07:44-0500 Body Temperature 97.4 [degF] Subha Camacho [facility] Internal Medicine Work Phone: Comment on above: Method: Oral 04-27-2011 07:44-0500 Body weight 95.26 kg Subha Camacho [facility] Internal Medicine Work Phone: 04-27-2011 07:44-0500 BP Diastolic 72 mm[Hg] Subha Camacho [facility] Internal Medicine Work Phone: Comment on above: Patient Position: Sitting; Cuff Location : Left Arm; Cuff Size: Large 04-27-2011 07:44-0500 BP Systolic 124 mm[Hg] Subha Camacho [facility] Internal Medicine Work Phone: Comment on above: Patient Position: Sitting; Cuff Location : Left Arm; Cuff Size: Large 04-27-2011 07:44-0500 BSA (Body Surface Area) 2.09 m2 Subha Camacho [facility] Internal Medicine Work Phone: 04-27-2011 07:44-0500 Height 172.72 cm Subha Camacho [facility] Internal Medicine Work Phone: 04-27-2011 07:44-0500 Pulse (Heart Rate) 96 /min Subha Camacho [facility] Internal Medicine Work Phone: Comment on above: Pattern: Regular 04-27-2011 07:44-0500 Respiratory Rate 16 /min Subha Camacho [facility] Internal Medicine Work Phone: Comment on above: Pattern: Unlabored 04-05-2011 11:58-0500 BMI (Body Mass Index) 31.47 kg/m2 Subha [facility] Internal Medicine Work Phone: 04-05-2011 11:58-0500 Body Temperature 97.5 [degF] Subha Camacho [facility] Internal Medicine Work Phone: 04-05-2011 11:58-0500 Body weight 93.9 kg Subha Camacho [facility] Internal Medicine Work Phone: 04-05-2011 11:58-0500 BP Diastolic 78 mm[Hg] Subha Camacho [facility] Internal Medicine Work Phone: Comment on above: Patient Position: Sitting; Cuff Location : Left Arm; Cuff Size: Large 04-05-2011 11:58-0500 BP Systolic 110 mm[Hg] Subha Camacho [facility] Internal Medicine Work Phone: Comment on above: Patient Position: Sitting; Cuff Location : Left Arm; Cuff Size: Large 04-05-2011 11:58-0500 BSA (Body Surface Area) 2.07 m2 Subha Camacho [facility] Internal Medicine Work Phone: 04-05-2011 11:58-0500 Height 172.72 cm Subha Camacho [facility] Internal Medicine Work Phone: 04-05-2011 11:58-0500 Pulse (Heart Rate) 76 /min Subha Camacho [facility] Internal Medicine Work Phone: Comment on above: Pattern: Regular 04-05-2011 11:58-0500 Respiratory Rate 16 /min Subha Camacho [facility] Internal Medicine Work Phone: Comment on above: Pattern: Unlabored 10-19-2010 13:30-0400 BMI (Body Mass Index) 30.93 kg/m2 Subha Norris [facility] Internal Medicine Work Phone: 10-19-2010 13:30-0400 Body Temperature 98.3 [degF] Subha Camacho [facility] Internal Medicine Work Phone: Comment on above: Method: Oral 10-19-2010 13:30-0400 Body weight 92.28 kg Subha Camacho [facility] Internal Medicine Work Phone: 10-19-2010 13:30-0400 BP Diastolic 80 mm[Hg] Subha Camacho [facility] Internal Medicine Work Phone: Comment on above: Patient Position: Sitting; Cuff Location : Left Arm; Cuff Size: Small 10-19-2010 13:30-0400 BP Systolic 122 mm[Hg] Subha Camacho [facility] Internal Medicine Work Phone: Comment on above: Patient Position: Sitting; Cuff Location : Left Arm; Cuff Size: Small 10-19-2010 13:30-0400 BSA (Body Surface Area) 2.06 m2 Subha Camacho [facility] Internal Medicine Work Phone: 10-19-2010 13:30-0400 Height 172.72 cm Subha Camacho [facility] Internal Medicine Work Phone: 10-19-2010 13:30-0400 Pulse (Heart Rate) 68 /min Subha Camacho [facility] Internal Medicine Work Phone: Comment on above: Pattern: Regular 10-19-2010 13:30-0400 Respiratory Rate 16 /min Subha Camacho [facility] Internal Medicine Work Phone: Comment on above: Pattern: Unlabored 10-03-2010 15:24-0400 BMI (Body Mass Index) 29.81 kg/m2 Subha Camacho [facility] Internal Medicine Work Phone: 10-03-2010 15:24-0400 Body Temperature 97.7 [degF] Subha Camacho [facility] Internal Medicine Work Phone: Comment on above: Method: Oral 10-03-2010 15:24-0400 Body weight 88.93 kg Subha Camacho [facility] Internal Medicine Work Phone: 10-03-2010 15:24-0400 BP Diastolic 78 mm[Hg] Subha Camacho [facility] Internal Medicine Work Phone: Comment on above: Patient Position: Sitting; Cuff Location : Left Arm; Cuff Size: Large 10-03-2010 15:24-0400 BP Systolic 122 mm[Hg] [facility] Work Phone: Comment on above: Patient Position: Sitting; Cuff Location : Left Arm; Cuff Size: Large 10-03-2010 15:24-0400 BSA (Body Surface Area) 2.03 m2 Subha Camacho [facility] Internal Medicine Work Phone: 10-03-2010 15:24-0400 Height 172.72 cm Subha [facility] Internal Medicine Work Phone: 10-03-2010 15:24-0400 Pulse (Heart Rate) 68 /min [facility] Work Phone: Comment on above: Pattern: Regular 10-03-2010 15:24-0400 Respiratory Rate 20 /min [facility] Work Phone: Comment on above: Pattern: Unlabored 09-16-2010 08:01-0400 BMI (Body Mass Index) 30.61 kg/m2 Subha Camacho [facility] Internal Medicine Work Phone: 09-16-2010 08:01-0400 Body weight 91.32 kg Subha Camacho [facility] Internal Medicine Work Phone: 09-16-2010 08:01-0400 BP Diastolic 90 mm[Hg] [facility] Work Phone: Comment on above: Patient Position: Sitting; Cuff Location : Left Arm; Cuff Size: Large 09-16-2010 08:01-0400 BP Systolic 124 mm[Hg] [facility] Work Phone: Comment on above: Patient Position: Sitting; Cuff Location : Left Arm; Cuff Size: Large 09-16-2010 08:01-0400 BSA (Body Surface Area) 2.05 m2 Subha [facility] Internal Medicine Work Phone: 09-16-2010 08:01-0400 Height 172.72 cm [facility] Work Phone: 09-16-2010 08:01-0400 Pulse (Heart Rate) 80 /min [facility] Internal Medicine Work Phone: Comment on above: Pattern: Regular 09-16-2010 08:01-0400 Respiratory Rate 20 /min Subha Camacho [facility] Internal Medicine Work Phone: Comment on above: Pattern: Unlabored 09-08-2010 14:39-0400 BMI (Body Mass Index) 31.7 kg/m2 Subha Norris [facility] Internal Medicine Work Phone: 09-08-2010 14:39-0400 Body Temperature 98.4 [degF] Subha Camacho [facility] Internal Medicine Work Phone: Comment on above: Method: Oral 09-08-2010 14:39-0400 Body weight 94.58 kg Subha Camacho [facility] Internal Medicine Work Phone: 09-08-2010 14:39-0400 BP Diastolic 82 mm[Hg] Subha Camacho [facility] Internal Medicine Work Phone: Comment on above: Patient Position: Sitting; Cuff Location : Left Arm; Cuff Size: Standard 09-08-2010 14:39-0400 BP Systolic 122 mm[Hg] Subha Camacho [facility] Internal Medicine Work Phone: Comment on above: Patient Position: Sitting; Cuff Location : Left Arm; Cuff Size: Standard 09-08-2010 14:39-0400 BSA (Body Surface Area) 2.08 m2 Subha Camacho [facility] Internal Medicine Work Phone: 09-08-2010 14:39-0400 Height 172.72 cm Subha Camacho [facility] Internal Medicine Work Phone: 09-08-2010 14:39-0400 Pulse (Heart Rate) 68 /min Subha Camacho [facility] Internal Medicine Work Phone: Comment on above: Pattern: Regular 09-08-2010 14:39-0400 Pulse Oximetry 97 % Subha Camacho [facility] Internal Medicine Work Phone: Comment on above: Room air 08-15-2010 16:10-0400 BMI (Body Mass Index) 31.7 kg/m2 Subha [facility] Internal Medicine Work Phone: 08-15-2010 16:10-0400 Body Temperature 97.5 [degF] Subha Camacho [facility] Internal Medicine Work Phone: Comment on above: Method: Oral 08-15-2010 16:10-0400 Body weight 94.58 kg Subha Camacho [facility] Internal Medicine Work Phone: 08-15-2010 16:10-0400 BP Diastolic 74 mm[Hg] Subha Camacho [facility] Internal Medicine Work Phone: Comment on above: Patient Position: Sitting; Cuff Location : Left Arm; Cuff Size: Standard 08-15-2010 16:10-0400 BP Systolic 126 mm[Hg] Subha Camacho [facility] Internal Medicine Work Phone: Comment on above: Patient Position: Sitting; Cuff Location : Left Arm; Cuff Size: Standard 08-15-2010 16:10-0400 BSA (Body Surface Area) 2.08 m2 Subha Camacho [facility] Internal Medicine Work Phone: 08-15-2010 16:10-0400 Height 172.72 cm Subha Camacho [facility] Internal Medicine Work Phone: 08-15-2010 16:10-0400 Pulse (Heart Rate) 72 /min Subha Camacho [facility] Internal Medicine Work Phone: Comment on above: Pattern: Regular 08-15-2010 16:10-0400 Respiratory Rate 16 /min Subha Camacho [facility] Internal Medicine Work Phone: Comment on above: Pattern: Unlabored 08-03-2010 10:35-0400 BMI (Body Mass Index) 31.7 kg/m2 [facility] Internal [facility] Work Phone: 08-03-2010 10:35-0400 Body Temperature 98 [degF] Subha Camacho [facility] Internal Medicine Work Phone: Comment on above: Method: Oral 08-03-2010 10:35-0400 Body weight 94.58 kg Subha Camacho [facility] Internal Medicine Work Phone: 08-03-2010 10:35-0400 BP Diastolic 80 mm[Hg] Subha Camacho [facility] Internal Medicine Work Phone: Comment on above: Patient Position: Sitting; Cuff Location : Left Arm; Cuff Size: Standard 08-03-2010 10:35-0400 BP Systolic 130 mm[Hg] Subha Camacho [facility] Internal Medicine Work Phone: Comment on above: Patient Position: Sitting; Cuff Location : Left Arm; Cuff Size: Standard 08-03-2010 10:35-0400 BSA (Body Surface Area) 2.08 m2 Subha Camacho [facility] Internal Medicine Work Phone: 08-03-2010 10:35-0400 Height 172.72 cm Subha Camacho [facility] Internal Medicine Work Phone: 08-03-2010 10:35-0400 Pulse (Heart Rate) 64 /min Subha Camacho [facility] Internal Medicine Work Phone: Comment on above: Pattern: Regular 08-03-2010 10:35-0400 Respiratory Rate 17 /min Subha Camacho [facility] Internal Medicine Work Phone: Comment on above: Pattern: Unlabored 05-30-2010 15:25-0400 BMI (Body Mass Index) 31.7 kg/m2 Subha Camacho [facility] Internal Medicine Work Phone: 05-30-2010 15:25-0400 Body weight 94.58 kg Subha Camacho [facility] Internal Medicine Work Phone: 05-30-2010 15:25-0400 BP Diastolic 80 mm[Hg] Subha Camacho [facility] Internal Medicine Work Phone: Comment on above: Patient Position: Sitting; Cuff Location : Left Arm; Cuff Size: Large 05-30-2010 15:25-0400 BP Systolic 122 mm[Hg] [facility] Work Phone: Comment on above: Patient Position: Sitting; Cuff Location : Left Arm; Cuff Size: Large 05-30-2010 15:25-0400 BSA (Body Surface Area) 2.08 m2 Subha Camacho [facility] Internal Medicine Work Phone: 05-30-2010 15:25-0400 Height 172.72 cm Subha Camacho [facility] Internal Medicine Work Phone: 05-30-2010 15:25-0400 Pulse (Heart Rate) 72 /min Subha Camacho [facility] Internal Medicine Work Phone: Comment on above: Pattern: Regular 05-30-2010 15:25-0400 Respiratory Rate 20 /min Subha Camacho [facility] Internal Medicine Work Phone: Comment on above: Pattern: Unlabored 01-31-2010 16:13-0500 BMI (Body Mass Index) 31.56 kg/m2 Subha Camacho [facility] Internal Medicine Work Phone: 01-31-2010 16:13-0500 Body weight 94.15 kg Subha Camacho [facility] Internal Medicine Work Phone: 01-31-2010 16:13-0500 BP Diastolic 64 mm[Hg] Subha Camacho [facility] Internal Medicine Work Phone: Comment on above: Patient Position: Standing; Cuff Locatio n: Left Arm; Cuff Size: Standard 01-31-2010 16:13-0500 BP Systolic 118 mm[Hg] Subha Camacho [facility] Internal Medicine Work Phone: Comment on above: Patient Position: Standing; Cuff Locatio n: Left Arm; Cuff Size: Standard 01-31-2010 16:13-0500 BSA (Body Surface Area) 2.08 m2 Subha Camacho [facility] Internal Medicine Work Phone: 01-31-2010 16:13-0500 Height 172.72 cm Subha Camacho [facility] Internal Medicine Work Phone: 01-31-2010 16:13-0500 Pulse (Heart Rate) 60 /min Subha Camacho [facility] Internal Medicine Work Phone: Comment on above: Pattern: Regular 01-31-2010 16:13-0500 Respiratory Rate 20 /min Subha Camacho [facility] Internal Medicine Work Phone: Comment on above: Pattern: Unlabored 10-13-2009 15:46-0400 BMI (Body Mass Index) 30.15 kg/m2 Subha Camacho [facility] Internal Medicine Work Phone: 10-13-2009 15:46-0400 Body weight 89.95 kg Subha Camacho [facility] Internal Medicine Work Phone: 10-13-2009 15:46-0400 BP Diastolic 84 mm[Hg] Subha Camacho [facility] Internal Medicine Work Phone: Comment on above: Patient Position: Sitting; Cuff Location : Left Arm; Cuff Size: Large 10-13-2009 15:46-0400 BP Systolic 128 mm[Hg] Subha Camacho [facility] Internal Medicine Work Phone: Comment on above: Patient Position: Sitting; Cuff Location : Left Arm; Cuff Size: Large 10-13-2009 15:46-0400 BSA (Body Surface Area) 2.04 m2 Subha Camacho [facility] Internal Medicine Work Phone: 10-13-2009 15:46-0400 Height 172.72 cm [facility] Work Phone: 10-13-2009 15:46-0400 Pulse (Heart Rate) 68 /min Subha Camacho [facility] Internal Medicine Work Phone: Comment on above: Pattern: Regular 10-13-2009 15:46-0400 Respiratory Rate 20 /min Subha Camacho [facility] Internal Medicine Work Phone: Comment on above: Pattern: Unlabored 06-09-2009 16:04-0400 BMI (Body Mass Index) 30.9 kg/m2 [facility] Work Phone: 06-09-2009 16:04-0400 Body weight 92.19 kg Subha Camacho [facility] Internal Medicine Work Phone: 06-09-2009 16:04-0400 BP Diastolic 82 mm[Hg] Subha Camacho [facility] Internal Medicine Work Phone: Comment on above: Patient Position: Sitting; Cuff Location : Left Arm; Cuff Size: Large 06-09-2009 16:04-0400 BP Systolic 118 mm[Hg] [facility] Work Phone: Comment on above: Patient Position: Sitting; Cuff Location : Left Arm; Cuff Size: Large 06-09-2009 16:04-0400 BSA (Body Surface Area) 2.06 m2 Subha Camacho [facility] Internal Medicine Work Phone: 06-09-2009 16:04-0400 Height 172.72 cm Subha Camacho [facility] Internal Medicine Work Phone: 06-09-2009 16:04-0400 Pulse (Heart Rate) 60 /min Subha Camacho [facility] Internal Medicine Work Phone: Comment on above: Pattern: Regular 06-09-2009 16:04-0400 Respiratory Rate 16 /min Subha Camacho [facility] Internal Medicine Work Phone: Comment on above: Pattern: Unlabored 01-25-2009 16:44-0500 BMI (Body Mass Index) 31.69 kg/m2 Subha Camacho [facility] Internal Medicine Work Phone: 01-25-2009 16:44-0500 Body weight 94.55 kg Subha Camacho [facility] Internal Medicine Work Phone: 01-25-2009 16:44-0500 BP Diastolic 90 mm[Hg] Subha Camacho [facility] Internal Medicine Work Phone: Comment on above: Patient Position: Sitting; Cuff Location : Left Arm; Cuff Size: Large 01-25-2009 16:44-0500 BP Systolic 124 mm[Hg] Subha Camacho [facility] Internal Medicine Work Phone: Comment on above: Patient Position: Sitting; Cuff Location : Left Arm; Cuff Size: Large 01-25-2009 16:44-0500 BSA (Body Surface Area) 2.08 m2 Subha Camacho [facility] Internal Medicine Work Phone: 01-25-2009 16:44-0500 Head Circumference 0 cm Subha Camacho [facility] Internal Medicine Work Phone: 01-25-2009 16:44-0500 Height 172.72 cm Subha Camacho [facility] Internal Medicine Work Phone: 01-25-2009 16:44-0500 Pulse (Heart Rate) 80 /min Subha Camacho [facility] Internal Medicine Work Phone: Comment on above: Pattern: Regular 01-25-2009 16:44-0500 Respiratory Rate 20 /min Subha Camacho [facility] Internal Medicine Work Phone: Comment on above: Pattern: Unlabored 01-18-2009 14:06-0500 BMI (Body Mass Index) 31.69 kg/m2 Subha Camacho [facility] Internal Medicine Work Phone: 01-18-2009 14:06-0500 Body weight 94.55 kg Subha Camacho [facility] Internal Medicine Work Phone: 01-18-2009 14:06-0500 BP Diastolic 88 mm[Hg] Subha Camacho [facility] Internal Medicine Work Phone: Comment on above: Patient Position: Sitting; Cuff Location : Left Arm; Cuff Size: Large 01-18-2009 14:06-0500 BP Systolic 124 mm[Hg] Subha Camacho [facility] Internal Medicine Work Phone: Comment on above: Patient Position: Sitting; Cuff Location : Left Arm; Cuff Size: Large 01-18-2009 14:06-0500 BSA (Body Surface Area) 2.08 m2 Subha Camacho [facility] Internal Medicine Work Phone: 01-18-2009 14:06-0500 Head Circumference 0 cm Subha Camacho [facility] Internal Medicine Work Phone: 01-18-2009 14:06-0500 Height 172.72 cm Subha Camacho [facility] Internal Medicine Work Phone: 01-18-2009 14:06-0500 Pulse (Heart Rate) 60 /min Subha Camacho [facility] Internal Medicine Work Phone: Comment on above: Pattern: Regular 01-18-2009 14:06-0500 Respiratory Rate 20 /min Subha Camacho [facility] Internal Medicine Work Phone: Comment on above: Pattern: Unlabored Encounters Encounter Date Encounter Type Care Provider Facility Start: 12-07-2023 End: 12-07-2023 Telephone encounter Patrice Edwards MD Work Phone: Urology Comment on above: Patient Update Start: 12-03-2023 End: 12-03-2023 Telephone encounter Patrice Edwards MD Work Phone: [facility] Comment on above: Appointment Start: 12-03-2023 End: 12-03-2023 ambulatory PATRICE EDWARDS JR Facility:[facility] Start: 11-27-2023 End: 11-27-2023 ambulatory LILIAN Fall [facility] Facility:[facility] Start: 11-13-2023 End: 11-13-2023 Admission to same day surgery center Patrice Edwards MD Work Phone: [facility] Comment on above: schedule surgery Start: 11-13-2023 End: 11-13-2023 ambulatory Patrice Edwards Jr., MD Work Phone: [facility] Start: 11-13-2023 End: 11-13-2023 Telephone encounter Patrice Edwards MD Work Phone: Urology Comment on above: Schedule Surgery Start: 11-08-2023 End: 11-08-2023 Patient encounter procedure Patrice Edwards MD Work Phone: [facility] Comment on above: Kidney stones [N20.0 ] (Primary Dx) Start: 11-08-2023 End: 11-08-2023 ambulatory PATRICE EDWARDS JR Facility:[facility] Start: 11-01-2023 End: 11-01-2023 ambulatory LILIAN Eufemia [facility] Facility:[facility] Start: 11-01-2023 End: 11-01-2023 Patient encounter procedure Ida Carlton MD Work Phone: Orthopaedics Comment on above: Bilateral hip pain Start: 10-30-2023 End: 10-30-2023 ambulatory [facility] Facility:[facility] Start: 10-30-2023 End: 10-30-2023 Subsequent hospital visit by physician [facility] [place] Work Phone: Radiology Comment on above: Kidney stone [N20.0] Start: 10-25-2023 End: 10-25-2023 Patient encounter procedure Patrice Edwards MD Work Phone: [facility] Comment on above: Kidney stone (Primar y Dx); Elevated PSA; Flank pain; Encounter for observation for other suspected diseases and conditions ruled out Start: 10-25-2023 End: 10-25-2023 ambulatory PATRICE EDWARDS JR Facility:[facility] Start: 10-18-2023 End: 10-18-2023 ambulatory Justine Leary APRN.HELPER TEACHER Work Phone: Family Medicine [place] Comment on above: ultra sound Start: 10-18-2023 End: 10-18-2023 Telephone encounter Justine Leary APRN.HELPER TEACHER Work Phone: Family Medicine [place] Comment on above: Results (Us Kidney/b ladder ) Start: 10-15-2023 End: 10-15-2023 ambulatory [facility] Facility:[facility] Start: 10-15-2023 End: 10-15-2023 Subsequent hospital visit by physician [facility] Work Phone: Radiology Comment on above: History of flank jourdan n [Z87.898] Start: 10-03-2023 Telephone encounter Justine garcia SURVEYOR OIL WELL DIRECTIONAL.HELPER TEACHER Work Phone: Family Medicine [facility] Comment on above: Results (Labs/urine ) Start: 10-02-2023 End: 10-02-2023 Patient encounter procedure Justine Leary APRN.HELPER TEACHER Work Phone: Family Medicine [place] Comment on above: History of flank jourdan n (Primary Dx); Dark urine; Elevated PSA Start: 10-02-2023 End: 10-02-2023 ambulatory JUSTINE LEARY Facility:[facility] Start: 09-17-2023 Telephone encounter Justine garcia SURVEYOR OIL WELL DIRECTIONAL.HELPER TEACHER Work Phone: [facility] [place] Comment on above: Results (Xray Hips ) Start: 09-14-2023 Telephone encounter Justine garcia APRN.CNP Work Phone: [facility] [place] Comment on above: Results (Knee Xray ) Start: 09-12-2023 End: 09-12-2023 Subsequent hospital visit by physician [facility] [place] Work Phone: Radiology Comment on above: Pain in both knees, unspecified chronicity [M25.561, M25.562] Start: 09-12-2023 End: 09-12-2023 ambulatory LILIAN ARCOSGROOM Facility:[facility] Start: 09-12-2023 End: 09-12-2023 Patient encounter procedure Justine Leary APRN.HELPER TEACHER Work Phone: [facility] [place] Comment on above: Pain in both knees, unspecified chronicity (Primary Dx); Bilateral hip pain Start: 06-08-2023 ambulatory Ny Goldstein MA [facility] [place] Comment on above: Population Health [facility] ([employer] - AWV, Care gaps, HCC gap closure - [place] [facility]) Start: 04-12-2023 End: 04-12-2023 ambulatory Jolene Romero PTA Work Phone: [facility] Comment [...] Start: 01-15-2023 End: 01-15-2023 ambulatory JUSTINE LEARY Facility:[facility] Start: 01-15-2023 End: 01-15-2023 Patient encounter procedure Jasmina Reyes PA-C Work Phone: Orthopaedics Comment on above: Bursitis of right sh oulder (Primary Dx); Acute pain of right shoulder; Chronic neck pain; Numbness of hand; DDD (degenerative disc disease), cervical Start: 11-23-2022 Telephone encounter Justine Denny nhof SURVEYOR OIL WELL DIRECTIONAL.HELPER TEACHER Work Phone: Family Medicine [place] Comment on above: Results (Labs and Xr ay ); Orders Start: 11-20-2022 End: 11-20-2022 Subsequent hospital visit by physician [facility] Work Phone: Radiology Comment on above: Acute pain of right shoulder [M25.511] Start: 11-20-2022 End: 11-20-2022 Patient encounter procedure Justine Leary SURVEYOR OIL WELL DIRECTIONAL.HELPER TEACHER Work Phone: Family Medicine [place] Comment on above: Medicare annual well ness visit, initial (Primary Dx); Chronic neck pain; Acute pain of right shoulder; Hyperlipidemia with target LDL less than 100; Elevated PSA Start: 10-10-2021 Telephone encounter Justine garcia SURVEYOR OIL WELL DIRECTIONAL.HELPER TEACHER Work Phone: [facility] [place] Comment on above: Results (Cologuard) Start: 10-01-2021 Chart abstracting Justine Allen of SURVEYOR OIL WELL DIRECTIONAL.HELPER TEACHER Work Phone: Family Medicine [place] Comment on above: Abstract; external d ocument Start: 09-29-2021 Telephone encounter Lilian williamson MD Work Phone: [facility] [place] Comment on above: Results (Labs ([facility]) ) Start: 09-22-2021 End: 09-22-2021 Patient encounter procedure Justine Leary APRN.HELPER TEACHER Work Phone: [facility] [place] Comment on above: Nonintractable heada [...] End: 06-11-2013 Patient encounter procedure Subha Camacho [facility] Internal Medicine Start: 09-12-2012 End: 09-13-2012 Patient encounter procedure Subha Camacho [facility] Internal Medicine Start: 07-08-2012 End: 07-08-2012 Patient encounter procedure Subha Camacho [facility] Internal Medicine Start: 03-25-2012 End: 03-25-2012 Patient encounter procedure Subha Camacho [facility] Internal Medicine Start: 01-08-2012 End: 01-08-2012 Patient encounter procedure Subha Camacho [facility] Internal Medicine Start: 11-08-2011 End: 11-09-2011 Patient encounter procedure Subha Camacho [facility] Internal Medicine Start: 09-06-2011 End: 09-06-2011 Patient encounter procedure Subha Camacho [facility] Internal Medicine Start: 08-28-2011 End: 08-28-2011 Lab Order Subha Mireille [facility] Field Auditor al Medicine Start: 05-04-2011 End: 05-04-2011 Patient encounter procedure Subhacrow Marteon [facility] Internal Medicine Start: 04-27-2011 End: 04-27-2011 Patient encounter procedure Subha Camacho [facility] Internal Medicine Start: 04-05-2011 End: 04-05-2011 Patient encounter procedure Subha Marteon [facility] Internal Medicine Start: 10-19-2010 End: 10-19-2010 Patient encounter procedure Subhacrow Marteon [facility] Internal Medicine Start: 10-03-2010 End: 10-03-2010 Patient encounter procedure Subhacrow Camacho [facility] Internal Medicine Start: 09-16-2010 End: 09-16-2010 Patient encounter procedure Subhacrow Marteon [facility] Internal Medicine Start: 09-12-2010 End: 09-12-2010 Annotation/Addendum Subha Camacho [facility] Medicine Start: 09-08-2010 End: 09-08-2010 Office outpatient visit 15 minutes Subha Camacho [facility] Internal Medicine Start: 08-15-2010 End: 08-15-2010 Office outpatient visit 15 minutes Subha Camacho [facility] Internal Medicine Start: 08-05-2010 End: 08-05-2010 Phone Encounter Subha Mireille [facility] Medicine Start: 08-03-2010 End: 08-03-2010 Office outpatient visit 25 minutes Subha Camacho [facility] Internal Medicine Start: 05-30-2010 End: 05-30-2010 Patient encounter procedure Subha Mireille [facility] Start: 05-23-2010 End: 05-23-2010 Erroneous Entry Subha Camacho [facility] Medicine Start: 01-31-2010 End: 01-31-2010 Patient encounter procedure Subha Camacho [facility] Internal Medicine Start: 10-13-2009 End: 10-14-2009 Patient encounter procedure Subha Camacho [facility] Start: 06-09-2009 End: 06-09-2009 Patient encounter procedure Subha Camacho [facility] Internal Medicine Start: 01-25-2009 End: 01-25-2009 Office outpatient visit 15 minutes Subha Camacho [facility] Internal Medicine Start: 01-18-2009 End: 01-18-2009 Patient encounter procedure Subha Camacho [facility] Internal Medicine Start: 01-18-2009 End: 01-18-2009 Historical Summary [facility]ha Camacho [facility] Procedures Date Procedure Procedure Detail Performing Clinician Start: 11-08-2023 Urnls dip stick/tablet rgnt auto w/o microscopy Patrice Edwards MD Work Phone: Start: 10-30-2023 Ct abdomen & pelvis w/o contrast material Patrice Edwards MD Work Phone: Start: 10-25-2023 Urnls dip stick/tablet rgnt auto w/o microscopy Patrice Edwards MD Work Phone: Start: 10-02-2023 Urnls dip stick/tablet rgnt auto w/o microscopy Justine Leary APRN.HELPER TEACHER Work Phone: Start: 09-12-2023 Radex hips bilateral with pelvis minimum 5 views Justine Leary APRN.HELPER TEACHER Work Phone: Start: 11-21-2022 Lipid 1996 panel - Serum or Plasma Justine Leary APRN.HELPER TEACHER Work Phone: Start: 11-20-2022 Radex spine cervical 4 or 5 views Justine Leary APRN.HELPER TEACHER Work Phone: Start: 09-22-2021 [employer] COVID-19 VACCINE, AGE 12+ YR (LOZANO TOP) Justine Leary APRN.HELPER TEACHER Work Phone: Start: 09-22-2021 Adult depression screening assessment Justine Leary TARAS.EUSEBIO Work Phone: Start: 09-28-2020 Lipid 1996 panel - Serum or Plasma Justine Leary APRN.CNP Work Phone: Start: 11-02-2014 End: 11-02-2014 Lower Ext/Jt Only/W Contrast Comments: See Note; NOTES: [facility] Imaging Services [address] [place] [address] MRI Report MR#: [id number] Acct: [id number] Name: BONNIE MARTINEZ Rep #: [id number] : 1955 M 58 From: Max Espinoza MD PCP: Subha Camacho DO Status: REG CLI Study: Lower Ext/Jt Only/W Contrast Date of Exam: 11/02/14 Exam# [id number] Ordering Dr: Bonnie Sanders MD STUDY: MRI [...] the femoral head neck junction, with pistol assembler sandal parts deformity (coronal T1 series 4 image 13). [...] FACR at 13:00 EDT , Service support [phone], CC: Bonnie Sanders MD; Subha Camacho DO Wheel Fitter: Christel Rush Work Phone: Start: 11-02-2014 End: 11-02-2014 Arthrogram Hip w/ MRI Comments: See Note; NOTES: [facility] Imaging Services [address] [place] [address] Radiology Report MR#: [id number] Acct: [id number] Name: JUANBONNIE Spann Rep #: [id number] : 1955 M 58 From: Rhett Randall MD PCP: Subha Camacho DO Status: [facility] Study: Arthrogram Hip w/ MRI Date of Exam: 11/02/14 Exam# [id number] Ordering Dr: Bonnie Sanders MD CLINICAL HISTORY: [...] Rhett Randall MD at 11:38 EDT Tel [phone], Service support [phone], RAD/Arthrogram Hip w/ MRI IMPRESSION: Successful right hip arthrogram with injection of 12 cc of MRI contrast material. Electronically Signed: Rhett aRndall MD at 11:38 EDT Tel [phone], Service support [phone], CC: Bonnie Sanders MD; Subha Camacho DO Wheel Fitter: Christel Rush Work Phone: Start: 10-30-2014 End: 10-30-2014 Lower Ext/Jt Only/W Contrast Comments: See Note; NOTES: [facility] Imaging Services [address] [place] [address] MRI Report MR#: [id number] Acct: [id number] Name: BONNIE MARTINEZ Maria Ines Rep #: [id number] : 1955 58 From: Addison Paige MD PCP: Subha Camacho DO Status: REG CLI Study: Lower Ext/Jt Only/W Contrast Date of Exam: 10/30/14 Exam# [id number] Ordering Dr: Bonnie Sanders MD STUDY: MRI [...] MD at 13:58 EDT , Service support [phone], CC: Bonnie Sanders MD; Subha Camacho DO Wheel Fitter: Signed Malia Renee ReelBig Work Phone: Start: 10-30-2014 End: 10-30-2014 Arthrogram Hip w/ MRI Comments: See Note; NOTES: [facility] Imaging Services [address] [place] [address] Radiology Report MR#: [id number] Acct: [id number] Name: BONNIE MARTINEZ Rep #: [id number] : 1955 M 58 From: Diana Gallrado MD PCP: Subha Camacho DO Status: REG CLI Study: Arthrogram Hip w/ MRI Date of Exam: 10/30/14 Exam# [id number] Ordering Dr: Bonnie Sanders MD PROCEDURE: ARTHROGRAM [...] at 13:44 EDT Tel , Service support [phone], RAD/Arthrogram Hip w/ MRI IMPRESSION: There is no evidence of intra-articular loose bodies. Electronically Signed: Emil Gallardo MD at 13:44 EDT Tel , Service support [phone], CC: Bonnie Sanders MD; Subha Camacho DO Wheel Fitter: Signed Malia Rush Work Phone: Start: 06-11-2013 End: 06-11-2013 Ecg routine ecg w/least 12 lds w/i&r [MEASUREMENTS ANALYSIS] Date of Test: 06/11/2013 16:34:23; Heart Rate: 61; PA Interval: 152; QRS: 106; QT Interval: 398; Corrected QT Interval (QTc): 399; P Wave [place]: 29; QRS Wave [place]: -15; T Wave [place]: -1; Blood Pressure: 132/84 [ECG DIAGNOSTIC STATEMENTS] Date of Test: 06/11/2013 16:34:23; Summary: Sinus Rhythm WITHIN NORMAL LIMITS Subha Camacho Work Phone: Comment on above: nsr no acute Plan of Treatment Date Care Activity Detail Author Start: 2032 RSV Vaccine (1 - 1-d ose 75+ series) RSV Vaccine (1 - 1-dose 75+ series) [facility] Start: 10-01-2028 Prostate specific antigen measurement Prostate Cancer Screening Discussion [facility] Start: 11-22-2027 Lipid 1996 panel - Serum or Plasma Lipid Screening [facility] Start: 11-22-2027 Lipid panel Lipid Screening [facility] Start: 11-22-2027 Prostate Cancer Screening Discussion Prostate Cancer Screening Discussion [facility] Start: 11-22-2027 Prostate specific antigen measurement Prostate Cancer Screening Discussion [facility] Start: 06-28-2027 Urine microalbumin profile [facility] Start: 10-01-2026 Diabetes Screening Diabetes Screenin g [facility] Start: 11-21-2025 Diabetes Screening Diabetes Screenin g [facility] Start: 09-28-2025 Lipid 1996 panel - Serum or Plasma Lipid Screening [facility] Start: 09-28-2025 LIPID SCREEN LIPID SCREEN [facility] Start: 11-05-2024 PROSTATE CANCER SCREENING DISCUSSION PROSTATE CANCER SCREENING DISCUSSION [facility] Start: 10-03-2024 COLOGUARD (FIT-DNA) COLOGUARD (FIT-D NA) [facility] Start: 10-03-2024 Colorectal Cancer Screening Colorectal Cancer Screening [facility] Start: 10-03-2024 Screening for malign ant neoplasm of colon [facility] Start: 10-01-2024 Annual PCP Team Hair Boiler Operator harriet Disease Visit Annual PCP Team Chronic Disease Visit [facility] Start: 09-11-2024 Annual PCP Team Hair Boiler Operator harriet Disease Visit Annual PCP Team Chronic Disease Visit [facility] Start: 09-11-2024 BP Controlled (<130/80) BP Controlle d (<130/80) [facility] Start: 02-06-2024 End: 02-06-2024 Patient encounter procedure 02/06/2024 10:20 AM EST Appointment [facility] [address] [place] [address] Encounter for observation for other suspected diseases and conditions ruled out [Z03.89] [facility] Comment on above: Encounter for observ ation for other suspected diseases and conditions ruled out [Z03.89] Start: 01-09-2024 End: 01-09-2024 Patient encounter procedure 01/09/2024 2:00 PM EST Office Visit [facility] [address] [place] [phone] Patrice Edwards Jr., MD [address] [place], [place] [id number] post op, kub prior [facility] Comment on above: post op, kub prior Start: 12-10-2023 End: 01-01-2025 XR Abdomen Supine and Upright XR ABDOMEN 1V SUPINE Radiology Routine Kidney stone Expected: 12/10/2023, Expires: 01/01/2025 [facility] Work Phone: Comment on above: Expected: 12/10/2023 , Expires: 01/01/2025 Start: 12-03-2023 End: 12-03-2023 Lithotripsy [facility]orp shock wave EXTRACORPOREAL SHOCKWAVE LITHOTRIPSY UNILATERAL Calculus, renal 12/03/2023 10:18 AM EDT [facility] Start: 11-21-2023 Annual PCP Team Hair Boiler Operator harriet Disease Visit Annual PCP Team Chronic Disease Visit [facility] Start: 11-21-2023 BP Controlled (<130/80) BP Controlle d (<130/80) [facility] Start: 11-08-2023 End: 11-08-2023 Patient encounter procedure 11/08/2023 10:00 AM EDT Office Visit [facility] [address] [place] [phone] Patrice Edwards Jr., MD [address] [place], [place] [address] follow up, CT and KUB prior [facility] Comment on above: follow up, CT and KU B prior Start: 11-06-2023 End: 11-06-2023 Patient encounter procedure 11/06/2023 4:00 PM EDT Office Visit Urology [address] [place] [address] Paulino Turner PA-C [address] [place] [address] Elevated PSA [R97.20] Urology Comment on above: Elevated PSA [R97.20 ] Start: 11-01-2023 End: 11-01-2023 Patient encounter procedure 11/01/2023 11:00 AM EDT Office Visit Orthopaedics [address] [address] Ida Carlton MD [address] [address] R/S from 10/15 Orthopaedics Comment on above: R/S from 10/15 Start: 10-30-2023 End: 10-30-2023 Patient encounter procedure 10/30/2023 11:40 AM EDT Appointment Cat Scan [address] [place] [address] Kidney stone [N20.0]; Flank pain [R10.9] [facility] Comment on above: Kidney stone [N20.0] ; Flank pain [R10.9] Start: 10-21-2023 Covid-19 Vaccine ( season) Covid-19 Vaccine ( season) [facility] Start: 10-21-2023 Covid-19 Vaccine ( season) Covid-19 Vaccine ( season) [facility] Start: 10-21-2023 Influenza vaccination [facility] Start: 10-16-2023 End: 10-16-2023 Patient encounter procedure 10/16/2023 11:20 AM EDT Office Visit Orthopaedics [address] [address] Ida Carlton MD [address] [phone] Bilateral hip pain [M25.551, M25.552] Orthopaedics Comment on above: Bilateral hip pain [ M25.551, M25.552] Start: 10-15-2023 End: 10-15-2023 Patient encounter procedure 10/15/2023 10:00 AM EDT Appointment Radiology [address] [place] [address] Flank pain [R10.9]; Dark urine [R82.998] Radiology Comment on above: Flank pain [R10.9]; Dark urine [R82.998] Start: 09-29-2023 DIABETES SCREEN DIABETES SCREEN [facility] Start: 09-29-2023 Diabetes Screening Diabetes Screenin g [facility] Start: 02-19-2023 Advance Directive Discussion Advance Directive Discussion [facility] Start: 02-19-2023 Behavioral Health Screening Behavioral Health Screening [facility] Start: 02-19-2023 Depression Assessment Depression Ass essment [facility] Start: 2022 Advance Directive Discussion Advance Directive Discussion [facility] Start: 2022 Pneumococcal Vaccine : 65+ (1 - PCV) Pneumococcal Vaccine: 65+ (1 - PCV) [facility] Start: 2022 Pneumococcal Vaccine : 65+ (1 of 1 - PCV) Pneumococcal Vaccine: 65+ (1 of 1 - PCV) [facility] Start: 11-20-2022 End: 01-20-2023 Comprehensive metabolic 2000 panel - Serum or Plasma COMP METABOLIC PANEL Lab Routine Medicare annual wellness visit, initial Expected: 11/20/2022, Expires: 01/20/2023 [facility] Work Phone: Comment on above: Expected: 11/20/2022 , Expires: 01/20/2023 Start: 11-20-2022 End: 01-20-2023 Lipid 1996 panel - Serum or Plasma LIPID PANEL BASIC Lab Routine Hyperlipidemia with target LDL less than 100 Expected: 11/20/2022, Expires: 01/20/2023 [facility] Work Phone: Comment on above: Expected: 11/20/2022 , Expires: 01/20/2023 Start: 11-20-2022 End: 01-20-2023 Prostate Specific Ag Free [Mass/volume] in Serum or Plasma PSA FREE Lab Routine Elevated PSA Expected: 11/20/2022, Expires: 01/20/2023 [facility] Work Phone: Comment on above: Expected: 11/20/2022 , Expires: 01/20/2023 Start: 10-20-2022 Covid-19 Vaccine () Covid-19 Vaccine () [facility] Start: 10-20-2022 Influenza vaccination Influenza Vacc ine (#1) [facility] Start: 09-22-2022 Adult depression screening assessment DEPRESSION SCREENING [facility] Start: 09-22-2022 ANNUAL PCP TEAM SEWER MAINTENANCE SUPERVISOR HARRIET DISEASE VISIT ANNUAL PCP TEAM CHRONIC DISEASE VISIT [facility] Start: 09-22-2022 BP CONTROLLED (<130/80) BP CONTROLLE D (<130/80) [facility] Start: 01-22-2022 COVID-19 VACCINE (4 - Booster for Pfizer series) COVID-19 VACCINE (4 - Booster for Pfizer series) [facility] Start: 11-17-2021 COVID-19 VACCINE (4 - Booster for Pfizer series) COVID-19 VACCINE (4 - Booster for Pfizer series) [facility] Start: 11-17-2021 Covid-19 Vaccine (4 - Pfizer series) Covid-19 Vaccine (4 - Pfizer series) [facility] Start: 10-20-2021 Influenza vaccination INFLUENZA (#1) [facility] Start: 10-05-2021 COLORECTAL CANCER SCREENING COLORECTAL CANCER SCREENING [facility] Start: 10-05-2021 FECAL OCCULT BLOOD FECAL OCCULT BLOO D [facility] Start: 10-05-2021 Screening for malign ant neoplasm of colon Fecal Occult Blood [facility] Start: 09-22-2021 End: 11-22-2021 Comprehensive metabolic 2000 panel - Serum or Plasma COMP METABOLIC PANEL Lab Routine Nonintractable headache, unspecified chronicity pattern, unspecified headache type Expected: 09/22/2021, Expires: 11/22/2021 [facility] Work Phone: Comment on above: Expected: 09/22/2021 , Expires: 11/22/2021 Start: 09-22-2021 End: 11-22-2021 Hemoglobin A1c in Blood HGB A1C Lab Routine Screening for diabetes mellitus Expected: 09/22/2021, Expires: 11/22/2021 [facility] Work Phone: Comment on above: Expected: 09/22/2021 , Expires: 11/22/2021 Start: 09-22-2021 End: 11-22-2021 Lipid 1996 panel - Serum or Plasma LIPID PANEL BASIC Lab Routine Screening cholesterol level Expected: 09/22/2021, Expires: 11/22/2021 [facility] Work Phone: Comment on above: Expected: 09/22/2021 , Expires: 11/22/2021 Start: 09-22-2021 End: 11-22-2021 Prostate Specific Ag Free [Mass/volume] in Serum or Plasma PSA FREE Lab Routine Elevated PSA Expected: 09/22/2021, Expires: 11/22/2021 [facility] Work Phone: Comment on above: Expected: 09/22/2021 , Expires: 11/22/2021 Start: 02-19-2021 DEPRESSION ASSESSMENT DEPRESSION ASS ESSMENT [facility] Start: 2017 RSV Vaccine (1 - 1-d ose 60+ series) RSV Vaccine (1 - 1-dose 60+ series) [facility] Start: 2017 RSV Vaccine (1 - Ris k 60-74 years 1-dose series) RSV Vaccine (1 - Risk 60-74 years 1-dose series) [facility] Start: 07-18-2013 Provider Instruction s for [...] feces 1-3 FECAL OCCULT- Tubes sent home (62573) [facility] Work Phone: Start: 01-08-2012 [...] feces 1-3 FECAL OCCULT- Tubes sent home (51227) [facility] Work Phone: Start: 04-05-2011 [...] 09-16-2010 Antibody giardia lamblia GIARDIA LAMBLIA ANTIBODY ([id number]) [facility] Work Phone: Start: 09-16-2010 Cul bact stool aerob ic isol salmonella&shigell CHRISTOPHER CULTURE-STOOL (59921) [facility] Work Phone: Start: 09-16-2010 Leukocyte assmt feca l qual/semiquantitative LEUKOCYTE COUNT, FECAL (90312) [facility] Work Phone: Start: 09-16-2010 Culture bacterial an y source anaerobic iso&id C-DIFFICILE, STOOL (87966) [facility] Work Phone: Start: 09-08-2010 Provider Instruction s for Treatment Follow up in 1 week with KF or MEC for removal of keratosis of head, leg, and back [facility] Work Phone: Start: 08-15-2010 Ova&parasites direct smears concentration & id OVA & PARASITE DIR SMEAR ([id number]) [facility] Work Phone: Start: 08-15-2010 Culture bacterial an y source anaerobic iso&id C-DIFFICILE, STOOL (91267) [facility] Work Phone: Start: 08-15-2010 Provider Instruction s for Treatment [facility] Work Phone: Start: 08-03-2010 Provider Instruction s for Treatment [facility] Work Phone: Start: 08-03-2010 Blood occult peroxid ase actv qual feces 1 deter OCCULT BLOOD FECES SCREEN (75106) [facility] Work Phone: Start: 08-03-2010 Ova&parasites direct smears concentration & id OVA & PARASITE DIR SMEAR (76855) [facility] Work Phone: Start: 08-03-2010 Cul bact stool aerob ic isol salmonella&shigell CHRISTOPHER CULTURE-STOOL (97730) [facility] Work Phone: Start: 08-03-2010 Culture bacterial an y source anaerobic iso&id C-DIFFICILE, STOOL (90247) [facility] Work Phone: Start: 08-03-2010 Leukocyte assmt feca l qual/semiquantitative LEUKOCYTE COUNT, FECAL (64743) [facility] Work Phone: Start: 05-30-2010 Provider Instruction s for Treatment [facility] Work Phone: Start: 01-31-2010 Provider Instruction s for Treatment [facility] Work Phone: Start: 10-13-2009 Provider Instruction s for Treatment [facility] Work Phone: Start: 06-09-2009 Lipid panel LIPID PANEL (18502) [facility] Work Phone: Comment on above: do before next visit Start: 06-09-2009 Provider Instruction s for Treatment [facility] Work Phone: Start: 01-25-2009 Lipid panel LIPID PANEL (18228) [facility] Work Phone: Comment on above: do in 4 months Start: 01-25-2009 Provider Instruction s for Treatment [facility] Work Phone: Start: 01-18-2009 Lipid panel LIPID PANEL (15835) [facility] Work Phone: Start: 01-18-2009 Provider Instruction s for Treatment [facility] Work Phone: Start: 2002 COLOGUARD (FIT-DNA) COLOGUARD (FIT-D NA) [facility] Start: 2002 Colonoscopy COLONOSCOPY [facility] Start: [address] COLONOGRAPHY [facility] Start: 2002 Screening for malign ant neoplasm of colon [facility] Start: 2002 SIGMOIDOSCOPY SIGMOIDOSCOPY [facility] Start: 12-05-1975 Anxiety Screening Anxiety Screening [facility] Start: 12-05-1975 Depression Screening Depression Scre ening [facility] Bacteria identified in Urine by Culture URINE CULTURE Microbiology Routine History of flank pain Dark urine 10/02/2023 10:16 AM EDT [facility] COLOGUARD COLOGUARD Lab Ro utine Screening for colon cancer Ordered: 09/22/2021 [facility] Work Phone: Comment on above: Ordered: 09/22/2021 End: 11-23-2024 CT Abdomen and Pelvis WO contrast CT FLANK WO IVCON Radiology Routine Kidney stone Flank pain 1 Occurrences starting 10/25/2023 until 11/23/2024 [facility] Work Phone: Comment on above: 1 Occurrences starti ng 10/25/2023 until 11/23/2024 End: 11-23-2024 MR Prostate WO and W contrast IV MRI PROSTATE WO/W IVCON Radiology Routine Encounter for observation for other suspected diseases and conditions ruled out 1 Occurrences starting 10/25/2023 until 11/23/2024 [facility] Comment on above: 1 Occurrences starti ng 10/25/2023 until 11/23/2024 End: 12-20-2023 Radex spine cervical 4 or 5 views XR CERV OTHER 4V AP/LAT/OBL Radiology Routine Chronic neck pain 1 Occurrences starting 11/20/2022 until 12/20/2023 [facility] Work Phone: Comment on above: 1 Occurrences starti ng 11/20/2022 until 12/20/2023 Radex spine cervical 4 or 5 views XR CERV OTHER 4V AP/LAT/OBL Radiology Routine Chronic neck pain 11/20/2022 11:21 AM T [facility] Work Phone: Urinalysis complete panel - Urine URINALYSIS, WITH MICROSCOPIC Lab Routine History of flank pain Dark urine 10/02/2023 10:16 AM [facility] End: 02-14-2024 US ELBOW RIGHT US ELBOW RIGHT Radiology Routine Numbness of hand 1 Occurrences starting 01/15/2023 until 02/14/2024 [facility] Work Phone: Comment on above: 1 Occurrences starti ng 01/15/2023 until 02/14/2024 End: 10-31-2024 US Kidney - bilateral and Urinary bladder US KIDNEY/BLADDER Radiology Routine History of flank pain Dark urine 1 Occurrences starting 10/02/2023 until 10/31/2024 [facility] Work Phone: Comment on above: 1 Occurrences starti ng 10/02/2023 until 10/31/2024 US Kidney - bilatera l and Urinary bladder US KIDNEY/BLADDER Radiology Routine History of flank pain Dark urine 10/15/2023 10:25 AM T [facility] Work Phone: End: 02-14-2024 Us lmtd joint/oth nonvasc xtr strux r-t w/img US ELBOW LEFT Radiology Routine Numbness of hand 1 Occurrences starting 01/15/2023 until 02/14/2024 [facility] Work Phone: Comment on above: 1 Occurrences starti ng 01/15/2023 until 02/14/2024 End: 11-23-2024 XR Abdomen Supine and Upright XR ABDOMEN 1V SUPINE Radiology Routine Kidney stone Flank pain 1 Occurrences starting 10/25/2023 until 11/23/2024 [facility] Comment on above: 1 Occurrences starti ng 10/25/2023 until 11/23/2024 XR Abdomen Supine an d Upright XR ABDOMEN 1V SUPINE Radiology Routine Kidney stone Flank pain 10/30/2023 11:35 AM EDT [facility] Work Phone: End: 10-11-2024 XR HIP BILATERAL 5V PEL/AP/LAT EACH HIP XR HIP BILATERAL 5V PEL/AP/LAT EACH HIP Radiology Routine Bilateral hip pain 1 Occurrences starting 09/12/2023 until 10/11/2024 [facility] Comment on above: 1 Occurrences starti ng 09/12/2023 until 10/11/2024 XR HIP BILATERAL 5V PEL/AP/LAT EACH HIP XR HIP BILATERAL 5V PEL/AP/LAT EACH HIP Radiology Routine Bilateral hip pain 09/12/2023 1:56 PM EDT [facility] End: 10-11-2024 XR Knee - bilateral 4 Views XR KNEE GENERAL 4V AP BOTH/PA BOTH/LAT/MERC BILATERAL Radiology Routine Pain in both knees, unspecified chronicity 1 Occurrences starting 09/12/2023 until 10/11/2024 [facility] Work Phone: Comment on above: 1 Occurrences starti ng 09/12/2023 until 10/11/2024 XR Knee - bilateral 4 Views XR KNEE GENERAL 4V AP BOTH/PA BOTH/LAT/MERC BILATERAL Radiology Routine Pain in both knees, unspecified chronicity 09/12/2023 1:56 PM EDT [facility] End: 12-20-2023 XR SHOULDER GENERAL 3V OR MORE AP/TRUE AP/OTHER RIGHT XR SHOULDER GENERAL 3V OR MORE AP/TRUE AP/OTHER RIGHT Radiology Routine Acute pain of right shoulder 1 Occurrences starting 11/20/2022 until 12/20/2023 [facility] Work Phone: Comment on above: 1 Occurrences starti ng 11/20/2022 until 12/20/2023 XR SHOULDER GENERAL 3V OR MORE AP/TRUE AP/OTHER RIGHT XR SHOULDER GENERAL 3V OR MORE AP/TRUE AP/OTHER RIGHT Radiology Routine Acute pain of right shoulder 11/20/2022 11:21 AM EDT [facility] Work Phone: [facility] Work [...] Phone: [facility] Work Phone: [facility] Immunizations Immunization Date Immunization Notes Care Provider Fa [facility] 09-22-2021 COVID-19 vaccine, ag e 12+ yr (PFIZER-BIONTEvento [employer] - [facility]) Justine Leary SURVEYOR OIL WELL DIRECTIONAL.HELPER TEACHER Work Phone: [facility] 11-23-2020 influenza, injectabl e, quadrivalent, contains preservative Justine Leary SURVEYOR OIL WELL DIRECTIONAL.HELPER TEACHER Work Phone: [facility] Work Phone: 11-23-2020 zoster vaccine recombinant Justine Samuelhof SURVEYOR OIL WELL DIRECTIONAL.HELPER TEACHER Work Phone: [facility] Work Phone: 11-23-2020 influenza virus vaccine, unspecified formulation Justine Leary SURVEYOR OIL WELL DIRECTIONAL.HELPER TEACHER Work Phone: [facility] 09-23-2020 zoster vaccine recombinant Justine Tannhof SURVEYOR OIL WELL DIRECTIONAL.HELPER TEACHER Work Phone: [facility] 11-05-2019 influenza, injectabl e, quadrivalent, contains preservative Justine Tannhof SURVEYOR OIL WELL DIRECTIONAL.HELPER TEACHER Work Phone: [facility] 11-21-2018 influenza, seasonal, injectable Justine Tannhof SURVEYOR OIL WELL DIRECTIONAL.HELPER TEACHER Work Phone: [facility] 06-27-2017 tetanus toxoid, redu jose ramon diphtheria toxoid, and acellular pertussis vaccine, adsorbed Justine Lizziehof SURVEYOR OIL WELL DIRECTIONAL.HELPER TEACHER Work Phone: [facility] 11-21-2016 influenza, seasonal, injectable Justine Tannhof SURVEYOR OIL WELL DIRECTIONAL.HELPER TEACHER Work Phone: [facility] 12-01-2015 influenza, seasonal, injectable Justine Tannhof SURVEYOR OIL WELL DIRECTIONAL.HELPER TEACHER Work Phone: [facility] 09-01-2008 tetanus and diphther ia toxoids, adsorbed, preservative free, for adult use (2 Lf of tetanus toxoid and 2 Lf of diphtheria toxoid) Justine Samuelhof SURVEYOR OIL WELL DIRECTIONAL.HELPER TEACHER Work Phone: [facility] Payers Date Payer Category Payer Medicare MEDICARE MEDICAR E A AND B [id number] 2022-Present [phone] [place] [address] Medicare [id number] 2022 Private Health Insurance [facility] AARP SUPPLEMENT [id number] 2022-Present [phone] [address] [place] [address] Indemnity [id number] 2022 Medicare [id number] 2022 Unknown [id number] 2021 Unknown 2021 Unknown DAISY SEYMOUR O DAVION [id number] 2021-Present [phone] [address] [place] [address] [facility] [id number] Social History Date Type Detail Facility Start: 11-16-2022 End: 10-25-2023 Alcohol Use Alcohol Use [facility] Work Phone: Comment on above: Occasional alcohol u se 1 tea QD , heterosexua l Electrition Tobacco use: Tobacco use: [facility] Work Phone: Comment on above: 05/04/11 Start: 06-01-2017 End: 11-20-2022 Tobacco smoking status NHIS Never smoked tobacco [facility] Start: 09-22-2021 End: 12-03-2023 Alcohol intake Current drinker of alcohol (finding) [facility] Start: 11-04-2019 History SDOH Alcohol Frequency 3 [facility] Start: 11-04-2019 End: 04-19-2021 History SDOH Alcohol Std Drinks 1 [facility] Start: 11-04-2019 End: 04-19-2021 History SDOH Alcohol Binge 2 [facility] Start: 12-03-2019 History SDOH Social Connections Phone 98 [facility] Start: 11-04-2019 History SDOH Social Connections Living 4 [facility] Start: 12-03-2019 History SDOH Physica l Activity DPW 6 [facility] Start: 11-03-2019 Education 12 [facility] Start: 1955 Sex Assigned At Male [facility] Start: 09-12-2021 End: 09-22-2021 Exposure to SARS-CoV-2 (event) Not sure [facility] Start: 06-01-2017 End: 11-20-2022 Tobacco use and exposure Smokeless tobacco non-user [facility] Start: 11-16-2022 End: 10-25-2023 [facility] [employer] [facility] Has the beqom, UB., or water [employer] threatened to shut off services in your home in past 12Mo No [facility] Frequency of Social Gatherings with Friends and Family Not on file [facility] Are you now , , , , never or living with a partner? [facility] How often to you hav e a drink containing alcohol? 2-4 times a month [facility] How many standard drinks containing alcohol do you have on a typical day? 1 or 2 [facility] How often do you hav e 6 or more drinks on 1 occasion? Never [facility] Do you feel stress - tense, restless, nervous, or anxious, or unable to sleep at night because your mind is troubled all the time - these days [OSQ] Not at all [facility] (I/We) worried wheth er (my/our) food would run out before (I/we) got money to buy more. Never true [facility] Start: 11-03-2019 Gender identity Identifies as male gender (finding) [facility] Start: 11-03-2019 Sexual orientation Choose not to disclose [facility] Clinical Notes 09-22-2021 to 12-07-2023 Telephone Encounter - Steven Lange RN - 12/07/2023 1:03 PM EDTTelephone Encounter - Steven Lange RN - 12/07/2023 1:03 PM EDTTelephone Encounter - Sue Griffin - 12/03/2023 2:01 PM EDT Note Date & Type Note Facility 12-07-2023 Telephone encounter Note Spoke with pts spouse and informed of the message below. Steven Lange RN [facility] 12-07-2023 Miscellaneous Notes Spoke with pts spouse [...] Suzanne Portillo RN documented in this encounter [facility] 12-07-2023 Telephone encounter Note Called patient's and left VM to call office back. Suzanne Portillo RN T [facility] Work Phone: 12-07-2023 Telephone encounter Note Sent to pharmacy [facility] 12-07-2023 Telephone encounter Note Patient's is calling regarding patient is still having blood in urine with small stones, pain with pain level now 3-4/10 up to 10/10 at times, and constipation. Denies fevers, chills. requesting additional pain medication/percocet, patient only has 1 pill left and recommend medication for constipation. Verified pharmacy. Informed that a message will be sent to provider. Suzanne Portillo RN [facility] 12-03-2023 Telephone encounter Note Spoke to patient Patient is scheduled January 09, 2024 at 2pm, [facility], kub prior Patient agrees and understands Thank amy Rogers [facility] 12-03-2023 Miscellaneous Notes Spoke to patient Patient is scheduled January 09, 2024 at 2pm, [place] location, kub prior Patient agrees and understands Thank you Sue [facility] or 12/03/23 Fu with me 4 weeks Kub prior ordered documented in this encounter [facility] 12-03-2023 Note HNO ID: [id number] Author: SAMINA MCKEON APRN.DIP BRAZIER Service: Anesthesiology Author Type: Nurse Elementary [employer] Teacher'S Aide Type: Anesthesia Procedure Notes Filed: 12/03/2023 10:28 Note Text: ANESTHESIOLOGY PROCEDURE NOTE Airway General Information Procedure Start Time/Medication Administration: 12/03/2023 10:22 AM Procedure End Time: 12/03/2023 10:22 AM Patient location during procedure: OR Timeout Performed Pre-procedure: timeout performed Consent Obtained: Yes Patient identity confirmed: arm band Staffing DIP BRAZIER: Samina Mckeon APRN.DIP BRAZIER Performed by: DIP BRAZIER Indications and Patient Condition Indications for airway management: anesthesia Preoxygenated: yes anesthesia circuit Patient position: sniffing Method: asleep Final Airway Details Final airway type: supraglottic airway Number of attempts at approach: 1 Final Supraglottic Airway: i-gel Size 5 Seal Adequate: yes SIGNATURE: Samina Mckeon APRN.DIP BRAZIER PATIENT NAME: Bonnie Martinez DATE: December 03, 2023 TIME: 10:28 AM CSN: [id number] [facility] 12-03-2023 Telephone encounter Note [facility] or 12/03/23 Fu with me 4 weeks Kub prior ordered [facility] 11-13-2023 Telephone encounter Note Spoke with pt's and surgery planned for 12/03/23. Joyce Marley [facility] 09-24-2024 Miscellaneous Notes Spoke with pt's and surgery planned for 12/03/23. Joyce Marley documented in this encounter [facility] 11-13-2023 Telephone encounter Note Pt's notified to check pharmacy. Joyce Marley [facility] 11-13-2023 Miscellaneous Notes Pt's notified to [...] Tahira garnica MA documented in this encounter [facility] 11-13-2023 Telephone encounter Note sent [facility] 11-13-2023 Telephone encounter Note Spoke with pt's and surgery planned for 12/03/[address] Edwards. Pt having bouts of nausea and requests a prescription gets sent to his pharmacy- [facility] in [place]. Please advise. Joyce Villavicencio [facility] 11-13-2023 Telephone encounter Note Pt called looking to schedule surgery quickly due to pt discomfort. stated that Pt is to have ESWL scheduled. Tahira garnica MA [facility] 11-08-2023 Note HNO ID: [id number] Author: PATRICE EDWARDS JR, MD Service: ? [...] (no units) Date Value 10/02/2023 Negative Specific [place], Ur (no units) Date Value 10/02/2023 1.013 [...] to proceed. Patrice Edwards Jr, MD 11/08/2023 [facility] 11-08-2023 History of Present illness Narrative [...] do laser litho or pcnl. [facility] LAB: Creatinine Date Value Ref Range Status 10/02/2023 1.25 (H) 0.73 - 1.22 mg/dL Final PSA (ng/mL) Date Value 10/02/2023 7.55 11/21/2022 6.61 PSA Screening (ng/mL) Date Value 11/06/2019 4.56 Glucose, Urine (no units) Date Value 10/02/2023 Negative Bilirubin, Urine (no units) Date Value 10/02/2023 Negative Ketones, Urine (no units) Date Value 10/02/2023 Negative Specific [place], Ur (no units) Date Value 10/02/2023 1.013 [...] Jr, MD 11/08/2023 documented in this encounter [facility] 11-01-2023 Note HNO ID: [id number] Author: IDA CARLTON MD Service: ? Author [...] the date of the service which included [id number] patient care, performing a medically appropriate examination, counseling and educating the patient/family/caregiver, independently interpreting results (not separately reported), and communicating results to the patient/family/caregiver. Ida Carlton MD Orthopaedic Surgery [facility] 11-01-2023 History of Present illness Narrative [...] the date of the service which included [id number] patient care, performing a medically appropriate examination, counseling and educating the patient/family/caregiver, independently interpreting results (not separately reported), and communicating results to the patient/family/caregiver. Ida Carlton MD Orthopaedic Surgery documented in this encounter [facility] 10-30-2023 History of Present illness Narrative [...] PATIENT PRESENTS WITH AN IMPLANTABLE OR ATTACHED HELPER STEEL FABRICATION: No RADIOLOGY DEPARTMENT: CT; Exam(s) Completed: Flank Study PERIPHERAL IV DATA: Not applicable SIGNED BY: RT Trupti(Gold) October 30, 2023 1:55 PM documented in this encounter [facility] 10-30-2023 Note HNO ID: [id number] Author: MYRNA RAPP RT (R) Service: ? Author Type: Disaster Recovery Coordinator Type: Progress Notes Filed: 10/30/2023 13:55 Note [...] PATIENT PRESENTS WITH AN IMPLANTABLE OR ATTACHED HELPER STEEL FABRICATION: No RADIOLOGY DEPARTMENT: CT; Exam(s) Completed: Flank Study PERIPHERAL IV DATA: Not applicable SIGNED BY: RT Trupti(Gold) October 30, 2023 1:55 PM [facility] 10-30-2023 History of Present illness Narrative [...] PATIENT PRESENTS WITH AN IMPLANTABLE OR ATTACHED HELPER STEEL FABRICATION: No RADIOLOGY DEPARTMENT: General X-ray: Exam(s) Completed: Abdomen X-Ray: Abdomen PERIPHERAL IV DATA: Not applicable SIGNED BY: RT Huyen(Gold) October 30, 2023 11:24 AM documented in this encounter [facility] 10-30-2023 Note HNO ID: [id number] Author: JONNIE JORDAN RT(R) Service: ? Author Type: Disaster Recovery Coordinator Type: Progress Notes Filed: 10/30/2023 11:35 Note [...] PATIENT PRESENTS WITH AN IMPLANTABLE OR ATTACHED HELPER STEEL FABRICATION: No RADIOLOGY DEPARTMENT: General X-ray: Exam(s) Completed: Abdomen X-Ray: Abdomen PERIPHERAL IV DATA: Not applicable SIGNED BY: RT Huyen(Gold) October 30, 2023 11:24 AM [facility] 10-26-2023 Note HNO ID: [id number] Author: PATRICE EDWARDS JR, MD Service: ? [...] (no units) Date Value 10/02/2023 Negative Specific [place], Ur (no units) Date Value 10/02/2023 1.013 [...] after Mri prostate Patrice Edwards Jr, MD [facility] 10-26-2023 History of Present illness Narrative [...] (no units) Date Value 10/02/2023 Negative Specific [place], Ur (no units) Date Value 10/02/2023 1.013 [...] Edwards Jr, MD documented in this encounter [facility] 10-18-2023 Telephone encounter Note Patient returned call and given provider's message below and patient verbalized understanding. Edouard Vivas RN [facility] 10-18-2023 Miscellaneous Notes Patient returned call [...] has any questions. Thank you. Justine Leary APRN.HELPER TEACHER documented in this encounter [facility] 10-18-2023 Telephone encounter Note TC to pt. LM to call office, ask for triage nurse to get results. Jesse Gonzalez LPN [facility] 10-18-2023 Telephone encounter Note See phone note Justine Leary APRN.HELPER TEACHER [facility] 10-18-2023 Miscellaneous Notes See phone note Justine Leary APRN.CNP See Udext message documented in this encounter [facility] 10-18-2023 Telephone encounter Note Can you [...] any questions. Thank you. Justine Leary APRN.CNP [facility] 10-18-2023 Telephone encounter Note See Udext message [facility] 10-15-2023 History of Present illness Narrative [...] PATIENT PRESENTS WITH AN IMPLANTABLE OR ATTACHED HELPER STEEL FABRICATION: No RADIOLOGY DEPARTMENT: Ultrasound PERIPHERAL IV DATA: Not applicable SIGNED BY: Bel Huffman RDMS RVT October 15, 2023 2:48 PM documented in this encounter [facility] 10-15-2023 Note HNO ID: [id number] Author: BEL HUFFMAN RDMS Service: ? Author Type: Supervisor [employer] Type: Progress Notes Filed: 10/15/2023 14:49 Note [...] PATIENT PRESENTS WITH AN IMPLANTABLE OR ATTACHED HELPER STEEL FABRICATION: No RADIOLOGY DEPARTMENT: Ultrasound PERIPHERAL IV DATA: Not applicable SIGNED BY: Bel Huffman RDMS RVT October 15, 2023 2:48 PM [facility] 10-03-2023 Telephone encounter Note Consult has been placed. Justine Leary APRN.EUSEBIO [facility] 10-03-2023 Miscellaneous Notes Consult has been placed. Justine Leary APRN.HELPER TEACHER Patient notified of results, verbalizes understanding of [...] Justine Leary APRN.CNP documented in this encounter [facility] 10-03-2023 Telephone encounter Note Patient notified of results, verbalizes understanding of instructions. Pt wants a consult to Urology. Please place. Jesse Gonzalez LPN [facility] 10-03-2023 Telephone encounter Note Can you [...] any questions. Thank you. Justine Leary APRN.CNP [facility] 10-02-2023 Instructions Justine Leary APRN.CNP - 10/02/2023 10:08 AM EDT Get labs and ultrasound completed Urine will be sent out for further testing Stay well hydrated Worsening symptoms contact the office. Follow up pending test results or sooner as needed. documented in this encounter [facility] 08-13-2024 History of Present illness Narrative This [...] HISTORY OF Comment: right 4th and 5th injury-[facility] 1985: PAST SURGICAL HISTORY OF; Right [...] discussed and patient voices understanding. Justine Leary APRN.HELPER TEACHER This note was partially generated using [employer] recognition system. Note was reviewed for accuracy. There may be minor misspellings or grammar miscues with Dragon voice recognition. documented in this encounter [facility] 10-02-2023 Note HNO ID: [id number] Author: JUSTINE LEARY APRN.EUSEBIO Service: ? Author [...] HISTORY OF Comment: right 4th and 5th injury-[facility] 1984: PAST SURGICAL HISTORY OF; Right [...] APRN.CNP This note was partially generated using Knotice voice recognition system. Note was reviewed for accuracy. There may be minor misspellings or grammar miscues with JuMei[employer]comon voice recognition. [facility] 09-17-2023 Telephone encounter Note Patient notified of results, verbalizes understanding of instructions. Jesse Gonzalez LPN [facility] 09-17-2023 Miscellaneous Notes Patient notified of [...] Justine Leary APRN.CNP documented in this encounter [facility] 09-17-2023 Telephone encounter Note Can you [...] any questions. Thank you. Justine Leary APRN.EUSEBIO [facility] 09-14-2023 Telephone encounter Note Patient notified of results, verbalizes understanding of instructions. Jesse Gonzalez LPN [facility] 09-14-2023 Miscellaneous Notes Patient notified of results, verbalizes understanding of instructions. Jesse Gonzalez LPN Can you please call the patient and let him know that I reviewed his knee x-ray results. X-ray showed no fractures, there was bilateral anterior tibial tuberosity enthesophytes, this is consistent with Wheeler slaughters disease. This is usually seen with children but can affect adults as well. We treat this with RICE therapy, rest, ice, compression, elevation. NSAIDs are used to reduce inflammation, he may use otqj-ajn-jgypubv or consider taking a once a day such as meloxicam. Physical therapy may be helpful to work on leg muscles. If no improvement I recommend a consult with orthopedics. Please let me know what he prefers regarding treatment. Thank you. Hip xray results are still pending Justine Leary APRN.EUSEBIO documented in this encounter [facility] 09-14-2023 Telephone encounter Note Can you please call the patient and let him know that I reviewed his knee x-ray results. X-ray showed no fractures, there was bilateral anterior tibial tuberosity enthesophytes, this is consistent with Wheeler slaughters disease. This is usually seen with children but can affect adults as well. We treat this with RICE therapy, rest, ice, compression, elevation. NSAIDs are used to reduce inflammation, he may use ipms-oen-cpzvayn or consider taking a once a day such as meloxicam. Physical therapy may be helpful to work on leg muscles. If no improvement I recommend a consult with orthopedics. Please let me know what he prefers regarding treatment. Thank you. Hip xray results are still pending Justine Leary APRN.HELPER TEACHER [facility] 09-12-2023 History of Present illness Narrative [...] PATIENT PRESENTS WITH AN IMPLANTABLE OR ATTACHED HELPER STEEL FABRICATION: No RADIOLOGY DEPARTMENT: General X-ray: Exam(s) Completed: Pelvis X-Ray: Pelvis with Hip Bilateral Lower Extremity X-Ray(s): Knee, AP / Lat / Tunne / Merchant Bilateral and Wt. Bearing PERIPHERAL IV DATA: Not applicable SIGNED BY: JULIET Marx) September 12, 2023 1:35 PM documented in this encounter [facility] 09-12-2023 Note HNO ID: [id number] Author: HELEN GARDNER RT(R) Service: Radiology Author [...] PATIENT PRESENTS WITH AN IMPLANTABLE OR ATTACHED HELPER STEEL FABRICATION: No RADIOLOGY DEPARTMENT: General X-ray: Exam(s) Completed: Pelvis X-Ray: Pelvis with Hip Bilateral Lower Extremity X-Ray(s): Knee, AP / Lat / Tunne / Merchant Bilateral and Wt. Bearing PERIPHERAL IV DATA: Not applicable SIGNED BY: Helen Gardner RT(R) September 12, 2023 1:35 PM [facility] 09-12-2023 Instructions Justine Leary APRN.HELPER TEACHER - 09/12/2023 1:23 PM EDT Get Xray completed Continue supportive care at home Be mindful with position changes Follow up pending test results documented in this encounter [facility] 09-12-2023 History of Present illness Narrative [...] has arthritis in bilateral hips, has seen [facility] in the past, has been about [...] SURGICAL HISTORY OF right 4th and 5th injury-[facility] PAST SURGICAL HISTORY OF Right 1985 [...] APRN.EUSEBIO This note was partially generated using Knotice voice recognition system. Note was reviewed for accuracy. There may be minor misspellings or grammar miscues with Knotice voice recognition. documented in this encounter [facility] 09-12-2023 Note HNO ID: [id number] Author: JUSTINE LEARY APRN.EUSEBIO Service: ? Author [...] has arthritis in bilateral hips, has seen [facility] in the past, has been about [...] SURGICAL HISTORY OF right 4th and 5th injury-[facility] PAST SURGICAL HISTORY OF Right 1985 [...] distal aspect of the patella. 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 Nontender with palpation, no edema noted. [...] discussed and patient voices understanding. Justine Leary APRN.HELPER TEACHER This note was partially generated using Knotice voice recognition system. Note was reviewed for accuracy. There may be minor misspellings or grammar miscues with Knotice voice recognition. [facility] 06-08-2023 Note HNO ID: [id number] Author: NY GOLDSTEIN MA Service: ? Author Type: Puppy Trainer Type: Progress Notes Filed: 06/08/2023 09:19 Note Text: POPULATION HEALTH NAVIGATION OUTREACH Action/FYI Patient is on [employer] list for below and needs appointment to address: RSV Vaccine(1 - 1-dose 60+ series) Covid-19 Vaccine(2022-24 season) Pneumococcal Vaccine: 65+(1 of 1 - PCV) Advance Directive Discussion Behavioral Health Screening Hemoglobin A1C (%) Date Value 09/28/2020 5.6 Patient due for: Medicare Annual Wellness Visit - 11-20-22 Advance Directives Left message for patient to call back. Sent Crocshart message. Reason for Outreach Care Gap/HCC or Scheduling Wellness Visits Care Gaps due: Medicare Annual Wellness Visit Advance Directives Patient Contacted: Unable or unnecessary to reach patient: Left message MyChart message sent HCC related Navigation Signature: Ny Goldstein MA June 08, 2023 7:09 AM [facility] 06-08-2023 History of Present illness Narrative POPULATION HEALTH NAVIGATION OUTREACH Action/I Patient is on [employer] list for below and needs appointment to address: RSV Vaccine(1 - 1-dose 60+ series) Covid-19 Vaccine( season) Pneumococcal Vaccine: 65+(1 of 1 - PCV) Advance Directive Discussion Behavioral Health Screening Hemoglobin A1C (%) Date Value 09/28/2020 5.6 Patient due for: Medicare Annual Wellness Visit - 11-20-22 Advance Directives Left message for patient to call back. Sent Crocshart message. Reason for Outreach Care Gap/HCC or Scheduling Wellness Visits Care Gaps due: Medicare Annual Wellness Visit Advance Directives Patient Contacted: Unable or unnecessary to reach patient: Left message [employer] message sent HCC related Navigation Signature: Ny Goldstein MA June 08, 2023 7:09 AM documented in this encounter [facility] 06-08-2023 Note Patient Outreach (KALA TNAV) BONNIE MARTINEZ ([id number]) 1955 M Date Time Provider Department 06/08/23 NY GOLDSTEIN During your visit today, we recorded the following information about you: Ny Goldstein MA 06/08/2023 9:19 AM Signed POPULATION HEALTH NAVIGATION OUTREACH Action/FYI Patient is on [employer] list for below and needs appointment to address: RSV Vaccine(1 - 1-dose 60+ series) Covid-19 Vaccine( season) Pneumococcal Vaccine: 65+(1 of 1 - PCV) Advance Directive Discussion Behavioral Health Screening Hemoglobin A1C (%) Date Value 09/28/2020 5.6 Patient due for: Medicare Annual Wellness Visit - 11-20-22 Advance Directives Left message for patient to call back. Sent Udext message. Reason for Outreach Care Gap/HCC or Scheduling Wellness Visits Care Gaps due: Medicare Annual Wellness Visit Advance Directives Patient Contacted: Unable or unnecessary to reach patient: Left message [employer]shart message sent HCC related Navigation Signature: Ny Goldstein MA June 08, 2023 7:09 AM Allergies As of Date: 06/08/2023 Noted Allergy Reaction ERYTHROMYCIN BASE 09/21/2008 8 - GI Upset Date Reviewed: 01/15/2023 Reviewed by: Jasmina Reyes PA-C - Fully Assessed Reason for Visit: Population Health Navigation Outreach [3910] Cmt: [employer] - AWV, Care gaps, HCC gap closure - [place] PCSA Prescriptions as of 06/08/2023 - predniSONE [...] Encounter Status:Closed by NY GOLDSTEIN on 06/08/23 [facility] 04-12-2023 History of Present illness Narrative Program_ID:[id number] Access Code: [email or web address] URL: [email or web address] Date: 04-12-2023 Prepared By: Bel Renee Program [...] : 929 Session Stop Time : 1003 IMLES Barillas, PT documented in this encounter [facility] 04-12-2023 Note HNO ID: [id number] Author: BEL RENEE PT Service: ? Author Type: Physical Therapist Type: Progress Notes Filed: 06/05/2023 08:44 Note Text: 06/05/2023 [facility] PHYSICAL THERAPY DISCONTINUANCE OF CARE Plan of Care Period: Start of Care Date: 04/04/23 Last Visit Date: 04/12/2023 Therapy Program: The following is a summary of the interventions provided for this episode of care; Therapeutic exercise and Self-[place] [facility] management Assessment: Based on most recent visit, [...] Stop Time : 1003 MILES Barillas, PT [facility] 04-10-2023 History of Present illness Narrative Program_ID:[id number] Access Code: [email or web address] URL: [email or web address] Date: 04-10-2023 Prepared By: Bel Renee Program [...] at endrange 6: *Access Code: [email or web address] URL: [email or web address] Date: 04/10/2023 Prepared by: Bel Marie Exercises [...] and function . Patient education as noted. Self-Intermediate Management: 1: pause median nerve glides 2: [...] Bel Renee PT documented in this encounter [facility] 04-10-2023 Note HNO ID: [id number] Author: BEL RENEE, PT Service: ? Author [...] at endrange 6: *Access Code: [email or web address] URL: [email or web address] Date: 04/10/2023 Prepared by: Bel Renee Exercises [...] and function . Patient education as noted. Self-Intermediate Management: 1: pause median nerve glides 2: [...] Minutes: 20 Self-Care/Ho (more content not included)... [facility] 04-04-2023 Miscellaneous Notes Addended by: BEL RENEE on: 04/04/2023 10:25 AM Modules accepted: Orders documented in this encounter [facility] 04-04-2023 History of Present illness Narrative Program_ID:[id number] Access Code: [email or web address] URL: [email or web address] Date: 04-04-2023 Prepared By: Bel Renee Program Notes Exercises - Ulnar Nerve/Median [place]- Low Level - 3-5 x daily - [...] of Care: created on 04/04/23 through 05/16/23 [place] in home exercise program. Patient will decrease [...] of Visits Planned: 12 Planned Treatment Interventions: [facility]-[place] [facility] management (15872), Therapeutic activities (26619), Manual therapy (23408), Neuromuscular re-education (68439), Therapeutic exercise (97835) PLAN FOR NEXT VISIT: assess median nerve [...] provided TREATMENT: PT Treatment Interventions: Therapeutic Exercise, Self-Intermediate Management Evaluation Therapeutic Exercise: 1: *Access Code: [email or web address] URL: [email or web address] Date: 04/04/2023 Prepared by: Bel Marie Exercises - Ulnar Nerve/Median [place]- Low Level - 3-5 x daily - [...] and function . Patient education as noted. Self-Intermediate Management: 1: postural awareness 2: median nerve [...] Bel Renee PT documented in this encounter [facility] 04-04-2023 Note HNO ID: [id number] Author: BEL RENEE PT Service: ? Author [...] of Care: created on 04/04/23 through 05/16/23 [place] in home exercise program. Patient will decrease [...] of Visits Planned: 12 Planned Treatment Interventions: [facility]-[place] [facility] management (85132), Therapeutic activities (82349), Manual therapy (23104), Neuromuscular re-education (01541), Therapeutic exercise (93056) PLAN FOR NEXT VISIT: assess median nerve [...] mean of general (more content not included)... [facility] 01-15-2023 Note HNO ID: [id number] Author: Jasmina Reyes PA-C Service: ? Author Type: Physician [place] Converter Blower Type: Progress Notes Filed: 01/15/2023 1:59 PM Note Text: Jasmina Reyes PA-C Department of Orthopaedics Orthopaedics [address] [facility] [address] Dept: [phone] Dept January 15, 2023 Consultation requested by [...] space narrowing and bilateral neural foraminal narrowing. Wheel Fitter: PSCB Transcribe Date/Time: Nov 21 2022 11:36A [...] bilateral [place]ch[place] joints (more content not included)... [facility] 01-15-2023 History of Present illness Narrative Jasmina Reyes PA-C Department of Orthopaedics Orthopaedics [address] [facility] [address] Dept: [phone] Dept January 15, 2023 Consultation requested by [...] space narrowing and bilateral neural foraminal narrowing. Wheel Fitter: [facility] Transcribe Date/Time: Nov 21 2022 11:36A Dictated [...] are normal. IMPRESSION: No acute osseous abnormality Wheel Fitter: [facility] Transcribe Date/Time: Nov 21 2022 4:33P Dictated [...] SURGICAL HISTORY OF right 4th and 5th injury-[facility] PAST SURGICAL HISTORY OF Right 1985 [...] anxiety) This note was partially generated using Knotice voice recognition system, and there may be [...] Daria Jaramillo RN documented in this encounter [facility] 01-15-2023 Note HNO ID: [id number] Author: Daria Jaramillo RN Service: ? Author [...] Continuous Intervention/Comfort measure: Reposition Daria Jaramillo RN [facility] 11-24-2022 Miscellaneous Notes Patient returned call, [...] to monitor levels. Thank you. Justine Leary APRN.EUSEBIO documented in this encounter [facility] 11-20-2022 Instructions Justine Leary APRN.CNP - 11/20/2022 10:46 AM EDT Get labs completed today Complete xrays Scheduled with Orthopedics Continue to eat a well balanced diet and stay active. Follow up in 1 year or sooner as needed. Massage therapy may be helpful for neck/trap pain. documented in this encounter [facility] 11-20-2022 History of Present illness Narrative Bonnie Martinez is a 66 year old male here for a Medicare wellness visit. Health Risk Assessment In general, health is: Excellent Concerns with balance:Not at all Concerns with teeth or dentures:Not at all Concerns with sexual function:Not at all [place] anxious, stressed, angry, irritable, lonely, isolated, or [...] SURGICAL HISTORY OF right 4th and 5th injury-[facility] PAST SURGICAL HISTORY OF Right 1985 [...] APRN.CNP This note was partially generated using Knotice voice recognition system. Note was reviewed for accuracy. There may be minor misspellings or grammar miscues with JuMei[employer]on voice recognition. documented in this encounter [facility] 10-10-2021 Miscellaneous Notes Pt notified of results via [employer]. If questions to contact the office. Sumaya Valadez Ma Can you please call the patient and let him know that his Cologuard was negative. Repeat screening will be due in 3 years. Please let me know if he has any questions. Thank you. Justine Leary APRN.CNP documented in this encounter [facility] 10-01-2021 History of Present illness Narrative View External Lab - Miscellaneous Lab [ID [id number]] documented in this encounter [facility] 09-30-2021 Miscellaneous Notes Patient notified of results, verbalizes understanding of instructions. Jesse Gonzalez LPN Can you please call the patient and let him know that I reviewed his lab results that were completed at [facility], labs were all relatively normal [...] View External Lab - Miscellaneous Lab [ID [id number]] Sumaya Valadez Ma documented in this encounter [facility] 09-22-2021 Instructions Justine Leary APRN.EUSEBIO - 09/22/2021 10:46 AM EDT 1.) Get fasting labs completed. 2.) Stool kit will come to your house in the mail. 3.) Continue to use Tylenol 3 as needed for migraine headache. 4.) Follow up in 1 year or sooner as needed. Get 3rd Covid Booster documented in this encounter [facility] 09-22-2021 History of Present illness Narrative [...] SURGICAL HISTORY OF right 4th and 5th injury-[facility] PAST SURGICAL HISTORY OF Right 1985 [...] activity was identified. 09/22/2021 by Justine Leary APRN.HELPER TEACHER ASSESSMENT/PLAN: 1. Nonintractable headache, unspecified chronicity pattern, [...] ICD10: Z23 - VIS sheet provided. - [employer] COVID-19 VACCINE, AGE 12+ YR (LOZANO TOP) Follow up in 1 year or sooner as needed. Discussed treatment plan and patient voices understanding. Patient's questions answered appropriately. Medications and potential side effects were discussed and patient voices understanding. Justine Leary APRN.EUSEBIO This note was partially generated using Knotice voice recognition system. Note was reviewed for accuracy. There may be minor misspellings or grammar miscues with Dragon voice recognition. documented in this encounter [facility] Evaluation note Diagnosis Nonintractable headache, unspecified chronicity pattern, unspecified headache type- Primary Screening for colon cancer Special screening for malignant neoplasms, colon Screening cholesterol level Screening for lipoid disorders Screening for diabetes mellitus Elevated PSA Elevated prostate specific antigen (PSA) Encounter for immunization Need for other specified prophylactic vaccination against single bacterial disease [facility] Medicare annual wellness visit, initial- Primary Routine general medical examination at a [facility] Chronic neck pain Cervicalgia Acute [...] examination of urine documented in this encounter [facility] note* Diagnosis Kidney stone- Primary Calculus of kidney Elevated PSA Elevated prostate specific antigen (PSA) Flank pain Abdominal pain, unspecified site Encounter for observation for other suspected diseases and conditions ruled out documented in this encounter [facility] note* Diagnosis Pain in both knees, unspecified chronicity Bilateral hip pain Pain in joint, pelvic region and thigh documented in this encounter [facility] note* Diagnosis Kidney stone Calculus of kidney Flank pain Abdominal pain, unspecified site documented in this encounter [facility] note* Diagnosis Kidney stone Calculus of kidney Flank pain Abdominal pain, unspecified site documented in this encounter [facility] note* Diagnosis Bilateral hip pain Pain in joint, pelvic region and thigh documented in this encounter [facility] note* Diagnosis Acute pain of right shoulder Chronic neck pain Cervicalgia documented in this encounter [facility] note* Diagnosis Kidney stones [N20.0]- Primary Calculus of kidney documented in this encounter [facility] note* Diagnosis Kidney stone- Primary Calculus of kidney documented in this encounter [facility] note* Diagnosis Kidney stone- Primary Calculus of kidney documented in this encounter [facility] for referral (narrative)* Diagnostic Procedure Only (Routine) - Closed Specialty Diagnoses / Procedures Referred By Roberto pino Referred To Contact XR IMAGING Diagnoses Bilateral hip pain Procedures XR HIP BILATERAL 5V PEL/AP/LAT EACH HIP RADEX HIPS BILATERAL WITH PELVIS MINIMUM 5 VIEWS Justine Leary APRN.HELPER TEACHER [address] [place] [address] [place] [address] Referral ID Status Reason Start Date Expiration Date V isits Requested Visits Authorized [id number] Closed Auto-Generate d Referral 09/12/2023 10/11/2024 1 1 * Consult, Test, Treat (Routine) - Authorized Specialty Diagnoses / Procedures Referred By Roberto pino Referred To Contact Orthopedics Diagnoses Bilateral hip pain Procedures CONSULT TO ORTHOPAEDICS OFFICE/OUTPATIENT [facility] 60 MINUTES Justine Leary APRN.CNP [address] [place] [address] Referral ID Status Reason Start Date Expiration Date Visits Requested Visits Authorized [id number] Authorized PCP Requested Referral 09/12/2023 09/11/2024 1 1 * Diagnostic Procedure Only (Routine) - Closed Specialty Diagnoses / Procedures Referred By Richardac t Referred To Contact XR IMAGING Diagnoses Pain in both knees, unspecified chronicity Procedures XR KNEE GENERAL 4V AP BOTH/PA BOTH/LAT/MERC BILATERAL RADIOLOGIC EXAM KNEE COMPLETE 4/MORE VIEWS Justine Leary APRN.HELPER TEACHER [address] [place] [address] [place] [address] Referral ID Status Reason Start Date Expiration Date V isits Requested Visits Authorized [id number] Closed Auto-Generate d Referral 09/12/2023 10/11/2024 1 1 [facility] Diagnostic Procedure Only (Routine) - Authorized Specialty Diagnoses / Procedures Referred By Roberto pino Referred To Contact US IMAGING Diagnoses History of flank pain Dark urine Procedures US KIDNEY/BLADDER US RETROPERITONEAL REAL TIME W/IMAGE COMPLETE Justine Leary APRN.CNP [address] [place] [address] [place] [address] Referral ID Status Reason Start Date Expiration Date Visits Requested Visits Authorized [id number] Authorized Auto-Generat ed Referral 10/02/2023 10/31/2024 1 1 [facility] for referral (narrative)* Diagnostic Procedure Only (Routine) - New Request Specialty Diagnoses / Procedures Referred By Contac t Referred To Contact XR IMAGING Diagnoses Kidney stone Flank pain Procedures XR ABDOMEN 1V SUPINE RADIOLOGIC EXAM ABDOMEN 1 VIEW Patrice Edwards Jr., MD [address] [place] [address] [place] [address] Referral ID Status Reason Start Date Expiration Date Visits Requested Visits Authorized [id number] New Request Auto-Generat ed Referral 10/25/2023 11/23/2024 1 1 * MRI/CT (Routine) - Authorized Specialty Diagnoses / Procedures Referred By Contac t Referred To Contact MR IMAGING Diagnoses Encounter for observation for other suspected diseases and conditions ruled out Procedures MRI PROSTATE WO/W IVCON MRI PELVIS W/O & W/CONTRAST MATERIAL Patrice Edwards Jr., MD [address] [place] [address] [place] [address] Referral ID Status Reason Start Date Expiration Date Visits Requested Visits Authorized [id number] Authorized Auto-Generat ed Referral 10/25/2023 11/23/2024 1 1 * MRI/CT (Routine) - Authorized Specialty Diagnoses / Procedures Referred By Contac t Referred To Contact CT IMAGING Diagnoses Kidney stone Flank pain Procedures CT FLANK WO IVCON CT ABD & PELVIS W/[place] [address] [place] [address] [facility] Referral ID Status Reason Start Date Expiration Date Visits Requested Visits Authorized [id number] Authorized Auto-Generat ed Referral 10/25/2023 11/23/2024 1 1 [facility] for referral (narrative)* Diagnostic Procedure Only (Routine) - Closed Specialty Diagnoses / Procedures Referred By Contac t Referred To Contact XR IMAGING Diagnoses Bilateral hip pain Procedures XR HIP BILATERAL 5V PEL/AP/LAT EACH HIP RADEX HIPS BILATERAL WITH PELVIS MINIMUM 5 VIEWS Justine Leary APRN.HELPER TEACHER [address] [place] [address] [place] [address] Referral ID Status Reason Start Date Expiration Date V isits Requested Visits Authorized [id number] Closed Auto-Generate d Referral 09/12/2023 10/11/2024 1 1 * Diagnostic Procedure Only (Routine) - Closed Specialty Diagnoses / Procedures Referred By Contac t Referred To Contact XR IMAGING Diagnoses Pain in both knees, unspecified chronicity Procedures XR KNEE GENERAL 4V AP BOTH/PA BOTH/LAT/MERC BILATERAL RADIOLOGIC EXAM KNEE COMPLETE 4/MORE VIEWS Justine Leary APRN.HELPER TEACHER [address] [place] [address] [place] [address] Referral ID Status Reason Start Date Expiration Date V isits Requested Visits Authorized [id number] Closed Auto-Generate d Referral 09/12/2023 10/11/2024 1 1 [facility] for referral (narrative)* Diagnostic Procedure Only (Routine) - Closed Specialty Diagnoses / Procedures Referred By Contac t Referred To Contact XR IMAGING Diagnoses Chronic neck pain Procedures XR CERV OTHER 4V AP/LAT/OBL RADEX SPINE CERVICAL 4 OR 5 VIEWS Justine Leary APRN.HELPER TEACHER [address] [place] [address] [place] [address] Referral ID Status Reason Start Date Expiration Date V isits Requested Visits Authorized [id number] Closed Auto-Generate d Referral 11/20/2022 12/20/2023 1 1 * Diagnostic Procedure Only (Routine) - Closed Specialty Diagnoses / Procedures Referred By Contac t Referred To Contact XR IMAGING Diagnoses Acute pain of right shoulder Procedures XR SHOULDER GENERAL 3V OR MORE AP/TRUE AP/OTHER RIGHT RADEX SHOULDER COMPLETE MINIMUM 2 VIEWS Justine Leary APRN.HELPER TEACHER [address] [place] [address] [place] [address] Referral ID Status Reason Start Date Expiration Date V isits Requested Visits Authorized [id number] Closed Auto-Generate d Referral 11/20/2022 12/20/2023 1 1 [facility] for referral (narrative)* Diagnostic Procedure Only (Routine) - New Request Specialty Diagnoses / Procedures Referred By Contac t Referred To Contact XR IMAGING Diagnoses Kidney stone Procedures XR ABDOMEN 1V SUPINE RADIOLOGIC EXAM ABDOMEN 1 VIEW Patrice Edwards Jr., MD [address] [place] [address] [place] [address] Referral ID Status Reason Start Date Expiration Date Visits Requested Visits Authorized [id number] New Request Auto-Generat ed Referral 01/01/2025 1 1 [facility] for visit Narrative* Diagnostic Procedure Only (Routine) - Closed Specialty Diagnoses / Procedures Referred By Contac t Referred To Contact XR IMAGING Diagnoses Bilateral hip pain Procedures XR HIP BILATERAL 5V PEL/AP/LAT EACH HIP RADEX HIPS BILATERAL WITH PELVIS MINIMUM 5 VIEWS Justine Leary APRN.CNP [address] [place] [address] [place] [address] Referral ID Status Reason Start Date Expiration Date V isits Requested Visits Authorized [id number] Closed Auto-Generate d Referral 09/12/2023 10/11/2024 1 1 [facility] for visit Narrative* Diagnostic Procedure Only (Routine) - Closed Specialty Diagnoses / Procedures Referred By Contac t Referred To Contact XR IMAGING Diagnoses Kidney stone Flank pain Procedures XR ABDOMEN 1V SUPINE RADIOLOGIC EXAM ABDOMEN 1 VIEW Patrice Edwards Jr., MD [address] [place] [address] [place] [address] Referral ID Status Reason Start Date Expiration Date V isits Requested Visits Authorized [id number] Closed Auto-Generate d Referral 10/25/2023 11/23/2024 1 1 [facility] for visit Narrative* Diagnostic Procedure Only (Routine) - Closed Specialty Diagnoses / Procedures Referred By Contac t Referred To Contact XR IMAGING Diagnoses Chronic neck pain Procedures XR CERV OTHER 4V AP/LAT/OBL RADEX SPINE CERVICAL 4 OR 5 VIEWS Justine Leary APRN.HELPER TEACHER [address] [place] [address] [place] [address] Referral ID Status Reason Start Date Expiration Date V isits Requested Visits Authorized [id number] Closed Auto-Generate d Referral 11/20/2022 12/20/2023 1 1 [facility] Instructions Name Dates Details Patient Instructions [...] neck pain Procedures CONSULT TO ORTHOPAEDICS OFFICE/OUTPATIENT [facility] 60-74 MINUTES Justine Leary APRN.HELPER TEACHER [address] [place] [address] Referral ID Status Reason Start Date Expiration Date Visits Requested Visits Authorized [id number] Authorized PCP Requested Referral 11/20/2022 11/20/2023 1 1 Specialty Diagnoses / Procedures Referred By Contac t Referred To Contact XR IMAGING Diagnoses Chronic neck pain Procedures XR CERV OTHER 4V AP/LAT/OBL RADEX SPINE CERVICAL 4 OR 5 VIEWS Justine Leary APRN.HELPER TEACHER [address] [place] [address] [place] [address] Referral ID Status Reason Start Date Expiration Date V isits Requested Visits Authorized [id number] Closed Auto-Generate d Referral 11/20/2022 12/20/2023 1 1 Specialty Diagnoses / Procedures Referred By Contac t Referred To Contact XR IMAGING Diagnoses Acute pain of right shoulder Procedures XR SHOULDER GENERAL 3V OR MORE AP/TRUE AP/OTHER RIGHT RADEX SHOULDER COMPLETE MINIMUM 2 VIEWS Justine Leary, TARAS.HELPER TEACHER [address] [place] [address] [place] [address] Referral ID Status Reason Start Date Expiration Date V isits Requested Visits Authorized [id number] Closed Auto-Generate d Referral 11/20/2022 12/20/2023 1 1 Specialty Diagnoses / Procedures Referred By Contac t Referred To Contact [facility] Diagnoses Numbness of hand DDD (degenerative disc disease), cervical Procedures CONSULT TO PHYSICAL THERAPY PHYSICAL THERAPY EVALUATION HIGH COMPLEX 45 MINS Jasmina Reyes PA-C [address] [place] [address] [facility] [place] [address] [place] [address] Referral ID Status Reason Start Date Expiration Date Visits Requested Visits Authorized [id number] Pending Review PCP Requested Referral Auto-Generate d Referral 3 01/15/2024 99 99 Specialty Diagnoses / Procedures Referred By Contac t Referred To Contact US IMAGING Diagnoses Numbness of hand Procedures US ELBOW LEFT US LMTD JOINT/OTH NONVASC XTR STRUX R-T W/Jasmina Quezada PA-C [address] [place] [address] Us Imaging [id number] Referral ID Status Reason Start Date Expiration Date Visits Requested Visits Authorized [id number] Pending Review Auto-Generat ed Referral 3 02/14/2024 1 1 Specialty Diagnoses / Procedures Referred By Contac t Referred To Contact US IMAGING Diagnoses Numbness of hand Procedures US ELBOW RIGHT US LMTD JOINT/OTH NONVASC XTR STRUX R-T W/Jasmina Quezada PA-C [address] [place] [address] Us Imaging [id number] Referral ID Status Reason Start Date Expiration Date Visits Requested Visits Authorized [id number] Pending Review Auto-Generat ed Referral 3 02/14/2024 1 1 Specialty Diagnoses / Procedures Referred By Contac t Referred To Contact Urology Diagnoses Elevated PSA Procedures CONSULT TO UROLOGY OFFICE/OUTPATIENT NEW HIGH MDM 60 MINUTES Justine Leary APRN.HELPER TEACHER [address] [place] [address] Referral ID Status Reason Start Date Expiration Date Visits Requested Visits Authorized [id number] Authorized PCP Requested Referral 10/03/2023 10/02/2024 1 1 Specialty Diagnoses / Procedures Referred By Contac t Referred To Contact CT IMAGING Diagnoses Kidney stone Flank pain Procedures CT FLANK WO IVCON CT ABD & PELVIS W/O CONTRAST Patrice Edwards Jr., MD [address] [place] [address] [place] [address] Referral ID Status Reason Start Date Expiration Date V isits Requested Visits Authorized [id number] Closed Auto-Generate d Referral 10/25/2023 11/23/2024 1 [...] or prosecute any alcohol or drug abuse patient.[facility] the event this information is protected by the Federal Confidentiality of Alcohol and Drug Abuse Patient Records regulations: The Federal rules restrict any use of the information to criminally investigate or prosecute any alcohol or drug abuse patient.[facility] the event this information is protected by the Federal Confidentiality of Alcohol and Drug Abuse Patient Records regulations: The Federal rules restrict any use of the information to criminally investigate or prosecute any alcohol or drug abuse patient.[facility] the event this information is protected by the Federal Confidentiality of Alcohol and Drug Abuse Patient Records regulations: The Federal rules restrict any use of the information to criminally investigate or prosecute any alcohol or drug abuse patient.[facility] the event this information is protected by the Federal Confidentiality of Alcohol and Drug Abuse Patient Records regulations: The Federal rules restrict any use of the information to criminally investigate or prosecute any alcohol or drug abuse patient.[facility] the event this information is protected by the Federal Confidentiality of Alcohol and Drug Abuse Patient Records regulations: The Federal rules restrict any use of the information to criminally investigate or prosecute any alcohol or drug abuse patient.[facility] the event this information is protected by the Federal Confidentiality of Alcohol and Drug Abuse Patient Records regulations: The Federal rules restrict any use of the information to criminally investigate or prosecute any alcohol or drug abuse patient.[facility] Hospital[facility] the event this information is protected by the Federal Confidentiality of Alcohol and Drug Abuse Patient Records regulations: The Federal rules restrict any use of the information to criminally investigate or prosecute any alcohol or drug abuse patient.[facility] HospitalIn the event this information is protected by the Federal Confidentiality of Alcohol and Drug Abuse Patient Records regulations: The Federal rules restrict any use of the information to criminally investigate or prosecute any alcohol or drug abuse patient.[facility] Hospital[facility] the event this information is protected by the Federal Confidentiality of Alcohol and Drug Abuse Patient Records regulations: The Federal rules restrict any use of the information to criminally investigate or prosecute any alcohol or drug abuse patient.[facility] Hospital[facility] the event this information is protected by the Federal Confidentiality of Alcohol and Drug Abuse Patient Records regulations: The Federal rules restrict any use of the information to criminally investigate or prosecute any alcohol or drug abuse patient.[facility] HospitalIn the event this information is protected by the Federal Confidentiality of Alcohol and Drug Abuse Patient Records regulations: The Federal rules restrict any use of the information to criminally investigate or prosecute any alcohol or drug abuse patient.[facility] HospitalIn the event this information is protected by the Federal Confidentiality of Alcohol and Drug Abuse Patient Records regulations: The Federal rules restrict any use of the information to criminally investigate or prosecute any alcohol or drug abuse patient.[facility] HospitalIn the event this information is protected by the Federal Confidentiality of Alcohol and Drug Abuse Patient Records regulations: The Federal rules restrict any use of the information to criminally investigate or prosecute any alcohol or drug abuse patient.[facility] Hospital[facility] the event this information is protected by the Federal Confidentiality of Alcohol and Drug Abuse Patient Records regulations: The Federal rules restrict any use of the information to criminally investigate or prosecute any alcohol or drug abuse patient.[facility] Hospital[facility] the event this information is protected by the Federal Confidentiality of Alcohol and Drug Abuse Patient Records regulations: The Federal rules restrict any use of the information to criminally investigate or prosecute any alcohol or drug abuse patient.[facility] HospitalIn the event this information is protected [...] or prosecute any alcohol or drug abuse patient.[facility] HospitalIn the event this information is protected by the Federal Confidentiality of Alcohol and Drug Abuse Patient Records regulations: The Federal rules restrict any use of the information to criminally investigate or prosecute any alcohol or drug abuse patient.[facility] HospitalIn the event this information is protected by the Federal Confidentiality of Alcohol and Drug Abuse Patient Records regulations: The Federal rules restrict any use of the information to criminally investigate or prosecute any alcohol or drug abuse patient.[facility] HospitalIn the event this information is protected by the Federal Confidentiality of Alcohol and Drug Abuse Patient Records regulations: The Federal rules restrict any use of the information to criminally investigate or prosecute any alcohol or drug abuse patient.[facility] HospitalIn the event this information is protected by the Federal Confidentiality of Alcohol and Drug Abuse Patient Records regulations: The Federal rules restrict any use of the information to criminally investigate or prosecute any alcohol or drug abuse patient.[facility] HospitalIn the event this information is protected by the Federal Confidentiality of Alcohol and Drug Abuse Patient Records regulations: The Federal rules restrict any use of the information to criminally investigate or prosecute any alcohol or drug abuse patient.[facility] HospitalIn the event this information is protected by the Federal Confidentiality of Alcohol and Drug Abuse Patient Records regulations: The Federal rules restrict any use of the information to criminally investigate or prosecute any alcohol or drug abuse patient.[facility] HospitalIn the event this information is protected by the Federal Confidentiality of Alcohol and Drug Abuse Patient Records regulations: The Federal rules restrict any use of the information to criminally investigate or prosecute any alcohol or drug abuse patient.[facility] HospitalIn the event this information is protected by the Federal Confidentiality of Alcohol and Drug Abuse Patient Records regulations: The Federal rules restrict any use of the information to criminally investigate or prosecute any alcohol or drug abuse patient.[facility] HospitalIn the event this information is protected by the Federal Confidentiality of Alcohol and Drug Abuse Patient Records regulations: The Federal rules restrict any use of the information to criminally investigate or prosecute any alcohol or drug abuse patient.[facility] HospitalIn the event this information is protected by the Federal Confidentiality of Alcohol and Drug Abuse Patient Records regulations: The Federal rules restrict any use of the information to criminally investigate or prosecute any alcohol or drug abuse patient.[facility] HospitalIn the event this information is protected by the Federal Confidentiality of Alcohol and Drug Abuse Patient Records regulations: The Federal rules restrict any use of the information to criminally investigate or prosecute any alcohol or drug abuse patient.[facility] HospitalIn the event this information is protected by the Federal Confidentiality of Alcohol and Drug Abuse Patient Records regulations: The Federal rules restrict any use of the information to criminally investigate or prosecute any alcohol or drug abuse patient.[facility] Reason for Visit (unrecogniz ed section and content) Reason Comments Physical Therapy Specialty Diagnoses / Procedures Referred By Roberto pino Referred To Contact [facility] Diagnoses Numbness of hand DDD (degenerative disc disease), cervical Procedures CONSULT TO PHYSICAL THERAPY PHYSICAL THERAPY EVALUATION HIGH COMPLEX 45 MINS Jasmina Reyes PA-C [address] [place] [address] [facility] [place] [address] [place] [address] Referral ID Status Reason Start Date Expiration Date Visits Requested Visits Authorized [id number] Authorized PCP Requested Referral Auto-Generate d Referral 02/19/2023 02/19/2024 99 99 Reason Comments Follow Up mirgrains Reason Comments Abstract external document Reason Comments Results Cologuard Reason Comments Results Labs ([facility]) Reason Comments Medicare Wellness Exam [...] NEW HIGH MDM 60-74 MINUTES Justine Leary APRN.HELPER TEACHER [address] [place] [address] Referral ID Status Reason Start Date Expiration Date V isits Requested Visits Authorized [id number] Closed PCP Requested Referral 11/20/2022 11/20/2023 1 1 Reason Comments PT Eval Reason Onset Date Comments Population Health Navigation Outreach 06/08/2023 [employer] [employer] - AWV, Care gaps, HCC [...] RETROPERITONEAL REAL TIME W/IMAGE COMPLETE Justine Leary APRN.HELPER TEACHER [address] [place] [address] [place] [address] Referral ID Status Reason Start Date Expiration Date V isits Requested Visits Authorized [id number] Closed Auto-Generate d Referral 10/02/2023 10/31/2024 1 1 Reason Comments Results Us Kidney/bladder Reason Comments Elevated PSA Kidney Stones Specialty Diagnoses / Procedures Referred By Contac t Referred To Contact Urology Diagnoses Elevated PSA Procedures CONSULT TO UROLOGY OFFICE/OUTPATIENT NEW HIGH MDM 60 MINUTES Justine Leary APRN.HELPER TEACHER [address] [place] [address] Referral ID Status Reason Start Date Expiration Date V isits Requested Visits Authorized [id number] Closed PCP Requested Referral 10/03/2023 10/02/2024 [address] Specialty Diagnoses / Procedures Referred By Contac t Referred To Contact CT IMAGING Diagnoses Kidney stone Flank pain Procedures CT FLANK WO IVCON CT ABD & PELVIS W/O CONTRAST Patrice Edwards Jr., MD [address] [place] [address] [place] [address] Referral ID Status Reason Start Date Expiration Date V isits Requested Visits Authorized [id number] Closed Auto-Generate d Referral 10/25/2023 11/23/2024 1 1 Reason Comments New Pain Specialty Diagnoses / Procedures Referred By Contac t Referred To Contact Orthopedics Diagnoses Bilateral hip pain Procedures CONSULT TO ORTHOPAEDICS OFFICE/OUTPATIENT [facility] 60 MINUTES Justine Leary APRN.CNP [address] [place] [address] Referral ID Status Reason Start Date Expiration Date V isits Requested Visits Authorized [id number] Closed PCP Requested Referral 09/12/2023 09/11/2024 1 1 Reason Comments Kidney Stones Reason Comments Schedule Surgery Reason Comments Appointment Reason Comments Patient Update Care Teams (unrecognized sec tion and content) Fish Frog Or Oyster Farmer Relationship Specialty Start Date End Date Lilian Chowdhury MD [address] [place] [address] PCP - General Family Practice 05/31/15 [employer] Or Oyster Farmer Relationship Specialty Start Date End Date Lilian Chowdhury MD [address] [place] [address] PCP - General Family Practice 05/31/15 [employer] Frog Or Oyster Farmer Relationship Specialty Start Date End Date Lilian Chowdhury MD [address] [place] [address] PCP - General Family Medicine 05/31/15 Fish Frog Or Oyster Farmer Relationship Specialty Start Date End Date Lilian Chowdhury MD [address] [place] [address] PCP - General Family Medicine 05/31/15 Fish Frog Or Oyster Farmer Relationship Specialty Start Date End Date Lilian Chowdhury MD [address] [place] [address] PCP - General Family Medicine 05/31/15 Fish Frog Or Oyster Farmer Relationship Specialty Start Date End Date Lilian Chowdhury MD [address] [place] [address] PCP - General Family Medicine 05/31/15 Fish Frog Or Oyster Farmer Relationship Specialty Start Date End Date Lilian Chowdhury MD [address] [place] [address] PCP - General Family Medicine 05/31/15 Fish Frog Or Oyster Farmer Relationship Specialty Start Date End Date Lilian Chowdhury MD [address] [place] [address] PCP - General Family Medicine 05/31/15 Fish Frog Or Oyster Farmer Relationship Specialty Start Date End Date Lilian Chowdhury MD [address] [place] [address] PCP - General Family Medicine 05/31/15 Fish Frog Or Oyster Farmer Relationship Specialty Start Date End Date Lilian Chowdhury MD [address] [place] [address] PCP - General Family Medicine 05/31/15 Fish Frog Or Oyster Farmer Relationship Specialty Start Date End Date Lilian Chowdhury MD [address] [place] [address] PCP - General Family Medicine 05/31/15 Fish Frog Or Oyster Farmer Relationship Specialty Start Date End Date Lilian Chowdhury MD [address] [place] [address] PCP - General Family Medicine 05/31/15 Fish Frog Or Oyster Farmer Relationship Specialty Start Date End Date Lilian Chowdhury MD [address] [facility] [place] [address] PCP - General Family Medicine 05/31/15 [employer] Relationship Specialty Start Date End Date Lilian Chowdhury MD [address] [place] [address] PCP - General Family Medicine 05/31/15 [employer] Relationship Specialty Start Date End Date Lilian Chowdhury MD [address] [place] [address] PCP - General Family Medicine 05/31/15 [employer] Relationship Specialty Start Date End Date Lilian Chowdhury MD [address] [place] [address] PCP - General Family Medicine 05/31/15 [employer] Relationship Specialty Start Date End Date Lilian Chowdhury MD [address] [place] [address] PCP - General Family Medicine 05/31/15 [employer] Relationship Specialty Start Date End Date Lilian Chowdhury MD [address] [place] [address] PCP - General Family Medicine 05/31/15 [employer] Relationship Specialty Start Date End Date Lilian Chowdhury MD [address] [place] [address] PCP - General Family Medicine 05/31/15 [employer] Relationship Specialty Start Date End Date Lilian Chowdhury MD [address] [place] [address] PCP - General Family Medicine 05/31/15 [employer] Relationship Specialty Start Date End Date Lilian Chowdhury MD [address] [place] [address] PCP - General Family Medicine 05/31/15 [employer] Relationship Specialty Start Date End Date Lilian Chowdhury MD [address] [place] [address] PCP - General Family Medicine 05/31/15 [employer] Relationship Specialty Start Date End Date Lilian Chowdhury MD [address] [place], [place] [id number] PCP - General Family Medicine 05/31/15 [employer] Relationship Specialty Start Date End Date Lilian Chowdhury MD [address] [place], [place] [id number] PCP - General Family Medicine 05/31/15 (unrecognized sect ion and content) No Status Records FoundNo Status Records Found INFORMATION SOURCE (unrecogn ized section and content) DATE CREATED AUTHOR 11/29/2023 [facility] DATE CREATED AUTHOR 'S ORGANIZ ATION 2023 [facility] FOR RECORDS PERTAINING TO PATIENTS WHO [...] BE BASED ON THE PRIMARY CLINICAL RECORDS. [facility]. provides no warranty or guarantee of the accuracy or completeness of information in this document.
--- OUTSIDE RECORDS SUMMARY | 2023-12-08 23:09 | XMS RPT_ITS | CCD ---
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 Name Role Phone Subha Camacho Unavailable Deny Qiu Unavailable Yudith Vaz Unavailable Unavailable Dye Range Feeder, System Unavailable Unavailable Rosi Smith Unavailable Unavailable [...] Care Unavailable IDA CARLTON Attending Unavailable JUSTINE ELARY Referring Unavailable LILIAN CHOWDHURY Primary Care Unavailable [...] Attending Unavaila ble JUSTINE LEARY Referring Unavailable LILINA CHOWDHURY Primary Care Unavailable YUMIKO JR, PATRICE GENE Attending Unavaila ble YUMIKO RAI, PATRICE GENE Referring Unavaila LILIAN Carlson Primary Care Unavailable Allergies Allergy Classification Reported Allergen(s) Allergy Type Date of Onset Reaction(s) Facility (1 source) Erythromycins; Translations: [Erythromycins] Allergy to substance (finding) [facility] Work Phone: Comment on above: Vomiting (20 sources) Erythromycin; Translations: [ERYTHROMYCIN BASE] Drug Allergy 9 GI Upset [facility] Work Phone: (3 sources) tamsulosin; Translations: [TAMSULOSIN] Drug Allergy 4 Intolerance [facility] Other [place] [facility] Medications Current Medications Medication Drug Class(es) [...] EVALon 024 ANES POSTPROC EVAL HNO ID: [id number] Author: TORSTEN MELGAR MD Service: Anesthesiology Author Type: Physician Type: Anesthesia Postprocedure Evaluation Filed: 12/03/2023 11:09 Note Text: POST ANESTHESIA EVALUATION NOTE : 1955 Procedure Summary Date: 12/03/23 Room / Location: [place] OR / [place] OR Anesthesia Start: 1018 [...] December 03, 2023 TIME: 11:09 AM CSN: [id number] [facility] ANES PRE-OPon 12-03-2023 ANES PRE-OP HNO ID: [id number] Author: TORSTEN MELGAR MD Service: Anesthesiology Author Type: Physician Type: Anesthesia Preprocedure Evaluation Filed: 12/03/2023 09:51 Note Text: ANESTHESIOLOGY DAY OF SURGERY NOTE : 1955 Procedure Information Date/Time: 12/03/23 1126 Procedure: EXTRACORPOREAL SHOCKWAVE LITHOTRIPSY UNILATERAL (Right: Kidney) Location: [place] OR 20 / [place] OR Surgeons: Patrice Edwards Jr., MD Estimated [...] December 03, 2023 TIME: 9:51 AM CSN: [id number] [facility] 12-03-2023 CNPN Telephone (AKURFL) ----- BONNIE MARTINEZ ([id number]) 1955 M Date Time Provider Department 12/03/23 PATRICE EDWARDS JR During your visit today, we recorded the following information about you: Patrice Edwards Jr., MD 12/03/2023 10:18 AM Signed [facility] or 12/03/23 Fu with oh 4 weeks John prior ordered Sue Griffin 12/03/2023 2:02 PM Signed Spoke to patient Patient is scheduled January 09, 2024 at 2pm, [facility] location, john prior Patient agrees and understands Thank you Sue Allergies As of Date: 12/03/2023 Noted Allergy Reaction ERYTHROMYCIN BASE 09/21/2008 8 - GI Upset FLOMAX (TAMSULOSIN) 11/29/2023 5 - Intolerance Comments: Bad diarrhea Date Reviewed: 12/03/2023 Reviewed by: Kervin Asif, RN - Fully Assessed Reason for Visit: Appointment [186] Primary Visit Diagnosis:Kidney stone [N20.0] Order(s):XR ABDOMEN 1V SUPINE [6346480] Order #: [id number] FUTURE Prescriptions as of 12/03/2023 - oxyCODONE-acetaminophen [...] Encounter Status:Closed by PATRICE EDWARDS on 12/03/23 [facility] HISTORY PHYSICALon HISTORY PHYSICAL HNO ID: [id number] Author: PATRICE EDWARDS JR, MD Service: Urology [...] SURGICAL HISTORY OF right 4th and 5th injury-[facility] PAST SURGICAL HISTORY OF Right 1985 right [...] nephrolithiasis measuring up to 1.3 cm, unchanged. Front Desk: DEVANG Transcribe Date/Time: Dec 03 2023 9:20A [...] OPERATIVE NOon 12-03-2023 OPERATIVE NO HNO ID: [id number] Author: PATRICE EDWARDS JR, MD Service: Urology [...] MD ----- Urology Operative Report LOG ID: [id number] SURGERY/PROCEDURE DATE: 12/03/2023 INCISION/PROCEDURE START TIME: 10:27 AM INCISION CLOSE/PROCEDURE END TIME: 11:01 AM PreOp Dx RIGHT renal calculus PostOp Dx Same Operation : RIGHT Extracorporeal Shock Wave Lithotripsy SURGEON(S)/PROCEDURALIST( S) AND MANUAL WRITER(S): Surgeons and Role: * Patrice Edwards Jr., [...] #[id number] 11:15 AM 12/03/23 Normal [facility] XR ABDOMEN 1V SUPINEon 12-02 XR ABDOMEN 1V SUPINE * * *Final Report* * * DATE OF EXAM: Dec 03 2023 9:12AM AKX [id number] - XR ABDOMEN 1V SUPINE / PROCEDURE REASON: Pre/Post operative evaluation * * * * Physician Interpretation * * * * XR ABDOMEN 1V GRGPET9112/03/2023 9:12 AM CLINICAL HISTORY: Pre/Post operative evaluation COMPARISON: Abdominal radiograph 10/30/2023. TECHNIQUE: XR ABDOMEN 1V SUPINE RESULT: Multiple bilateral renal calculi measuring up to 1.3 cm in the right upper pole, similar to 10/30/2023 CT abdomen and pelvis. Moderate stool. No dilated bowel. Degenerative changes. IMPRESSION: Bilateral nephrolithiasis measuring up to 1.3 cm, unchanged. Front Desk: [employer] Transcribe Date/Time: Dec 03 2023 9:20A Dictated by : HARSH DINERO MD This examination was interpreted and the report reviewed and electronically signed by: HARSH DINERO MD on Dec 03 2023 9:22AM EST [id number] Normal [facility] Bacteria Ur Culton 4 Bacteria identified Cx Nom (U) ORGANISM ID: 1 10,000 -<50,000 CFU/ml Normal urogenital lazaro Normal [facility] Comment on above: Performed By: #### 6 30-4 ####[facility] [id number] [address] [place] Aishwarya 11-13-2023 [place] Telephone (UROLAE) ----- BONNIE MARTINEZ ([id number]) 1955 M Date Time Provider Department 11/13/23 [...] a prescription gets sent to his pharmacy- [facility] in [place]. Please advise. Thanks, Patrice Barcenas Jr., MD [...] on 11/13/23 [facility] CNOVon 11-08-2023 CN Office Visit (AKURFL ) ----- BONNIE MARTINEZ ([id number]) 1955 M Date Time Provider Department 11/08/23 [...] do laser litho or pcnl. [facility] LAB: Creatinine Date Value Ref Range Status 10/02/2023 1.25 (H) 0.73 - 1.22 mg/dL Final PSA (ng/mL) Date Value 10/02/2023 7.55 11/21/2022 6.61 PSA Screening (ng/mL) Date Value 11/06/2019 4.56 Glucose, Urine (no units) Date Value 10/02/2023 Negative Bilirubin, Urine (no units) Date Value 10/02/2023 Negative Ketones, Urine (no units) Date Value 10/02/2023 Negative Specific [place], Ur (no units) Date Value 10/02/2023 1.013 [...] MD 11/08/2023 Referring Provider: PATRICE EDWARDS JR [[id number]] Allergies As of Date: 11/08/2023 Noted Allergy Reaction ERYTHROMYCIN BASE 09/21/2008 8 - GI Upset Date Reviewed: 11/08/2023 Reviewed by: Patrice Edwards Jr., MD - Fully Assessed Reason for Visit: Kidney Stones [13882] Primary Visit Diagnosis:Kidney stones [N20.0] [N20.0] Order(s):UA DIP, URINE (POC) [4792418] Order #: [id number]. #:[id number] 49-LAB Prescriptions as of 11/08/2023 - tamsulosin [...] (more content not included)... Normal [facility] UA DIP, URINE (POC)on 2023 BILIRUBIN UA (POCT) Negative Negative [facility] CLARITY UA (POCT) Clear [facility] COLOR UA (POCT) Yellow [facility] GLUCOSE UA (POCT) Negative Negative mg/dL [facility] Hemoglobin Ql (U) Trace-intact Abnormal Negative [facility] Interpretation and review of laboratory results Abnormal [facility] KETONE UA (POCT) Negative Negative mg/dL [facility] LEUKOCYTES UA (POCT) Negative Negative [facility] NITRITE UA (POCT) Negative Negative [facility] PH UA (POCT) 5.5 4.5 - 8.0 [facility] Protein Ql (U) Negative Negative mg/dL [facility] SPECIFIC GRAVITY UA (POCT) 1.020 1.005 - 1.030 [facility] UROBILINOGEN UA (POCT) 0.2 Normal E.U./dL [facility] Location:[facility], [address] [place] [address], [address] [place] [address] POINT OF CARE [facility] CNOVon 11-01-2023 CNOV Office Visit (ORMDNA ) ----- BONNIE MARTINEZ ([id number]) 1955 M Date Time Provider Department 11/01/23 [...] the date of the service which included [id number] patient care, performing a medically appropriate examination, counseling and educating the patient/family/caregiver, independently interpreting results (not separately reported), and communicating results to the patient/family/caregiver. Ida Carlton MD Orthopaedic Surgery Referring Provider: JUSTINE LEARY [[id number]] Allergies As of Date: 11/01/2023 Noted Allergy Reaction ERYTHROMYCIN BASE 09/21/2008 8 - GI Upset Date Reviewed: 11/01/2023 Reviewed by: Tiff Fuentes OCCA - Fully Assessed Reason for Visit: New [847610] Pain [78] New [209115] Pain [78] Visit Diagnosis:Bilateral hip pain [M25.551, M25.552] Order(s):CONSULT TO ORTHOPAEDICS [9026] Order #: [id number]: 1 Prescriptions as of 11/01/2023 - tamsulosin [...] Encounter Status:Closed by PREMAPERCYIDA on 11/01/23 [address] [facility] CT Abdomen and Pelvis WO con traston 10-31-2023 IMPRESSION: Nonobstructing bilateral renal calculi. Hepatic steatosis. Colonic diverticulosis. Front Desk: DEVANG Transcribe Date/Time: Oct 31 2023 1:30P Dictated by : JEANNETTE TUCKER MD This examination was interpreted and the report reviewed and electronically signed by: JEANNETTE TUCKER MD on Oct 31 2023 1:39PM [facility] DIVISION OF RADIOLOGY * * *Final Report* * * DATE OF EXAM: Oct 30 2023 11:53AM [facility] 0529 - CT FLANK WO IVCON [...] No additional findings. DIVISION OF RADIOLOGY Provider, [facility] - 10/31/2023 * * *Final Report* * * DATE OF EXAM: Oct 30 2023 11:53AM [facility] 0529 - CT FLANK WO IVCON [...] bilateral renal calculi. Hepatic steatosis. Colonic diverticulosis. Front Desk: [employer] Transcribe Date/Time: Oct 31 2023 1:30P Dictated by : JEANNETTE TUCKER MD This examination was interpreted and the report reviewed and electronically signed by: JEANNETTE TUCKER MD on Oct 31 2023 1:39PM EST [facility] CT Abdomen and Pelvis WO con trastOrdered By: [facility]cf Provider on 10-31-[address] [facility] [address] Abdomen and Pelvis WO con traston 10-30-2023 Radiology Study observation (narrative) [facility] CT FLANK WO IVCONon 10-30-[address] FLANK WO IVCON * * *Final Report* * * DATE OF EXAM: Oct 30 2023 11:53AM [facility] 0529 - CT FLANK WO IVCON [...] bilateral renal calculi. Hepatic steatosis. Colonic diverticulosis. Front Desk: [facility] Transcribe Date/Time: Oct 31 2023 1:30P Dictated by : JEANNETTE TUCKER MD This examination was interpreted and the report reviewed and electronically signed by: JEANNETTE TUCKER MD on Oct 31 2023 1:39PM EST [id number] Normal [facility] XR ABDOMEN 1V SUPINEon 10-29 XR ABDOMEN [...] acute osseous abnormalities. IMPRESSION: Bilateral renal calculi Front Desk: [facility] Transcribe Date/Time: Nov 02 2023 10:25A Dictated by : SHELIA HIGGINS MD This examination was interpreted and the report reviewed and electronically signed by: SHELIA HIGGINS MD on Nov 02 2023 10:27AM EST [id number] Normal [facility] CNOVon 10-25-2023 CNOV Office Visit (AKURFL ) ----- BONNIE MARTINEZ ([id number]) 1955 M Date Time Provider Department 10/25/23 [...] (no units) Date Value 10/02/2023 Negative Specific [place], Ur (no units) Date Value 10/02/2023 1.013 [...] Edwards Jr, MD Referring Provider: JUSTINE LEARY [[id number]] Allergies As of Date: 10/25/2023 Noted Allergy Reaction ERYTHROMYCIN BASE 09/21/2008 8 - GI Upset Date Reviewed: 10/25/2023 Reviewed by: Patrice Edwards Jr., MD - Fully Assessed Reason for Visit: Elevated PSA [3906] Kidney Stones [83649] Primary Visit Diagnosis:Kidney stone [N20.0] Other Visit Diagnoses:Elevated PSA [R97.20] Flank pain [R10.9] Encounter for observation for other suspected diseases and conditions ruled out [Z03.89] Order(s):CONSULT TO UROLOGY [9041] Order #: [id number]: 1 UA DIP, URINE (POC) [6708584] Order #: [id number]. #:[id number] 48-LAB CT FLANK WO IVCON [1144649] Order #: [id number] FUTURE MRI PROSTATE WO/W IVCON [3939293] Order #: [id number] FUTURE iv contrast (will be provided with radiology test)MRI Prostate Inject, intravenously, once for 1 dose. No IV access, insert saline lock prior to the beginning of sedation, infusion, injection of imaging exam. Discontinue saline lock post exam. If Pt. has (more content not included)... Normal [facility] UA DIP, URINE (POC)on 2023 BILIRUBIN UA (POCT) Negative Negative [facility] CLARITY UA (POCT) Clear [facility] COLOR UA (POCT) Yellow [facility] GLUCOSE UA (POCT) Negative Negative mg/dL [facility] Hemoglobin Ql (U) Small Abnormal Negative [facility] Interpretation and review of laboratory results Abnormal [facility] KETONE UA (POCT) Negative Negative mg/dL [facility] LEUKOCYTES UA (POCT) Negative Negative [facility] NITRITE UA (POCT) Negative Negative [facility] PH UA (POCT) 6.5 4.5 - 8.0 [facility] Protein Ql (U) Negative Negative mg/dL [facility] SPECIFIC GRAVITY UA (POCT) 1.020 1.005 - 1.030 [facility] UROBILINOGEN UA (POCT) 0.2 Normal E.U./dL [facility] Location:[facility], [address] [place] [address], [place], [place], [id number] [place] [address] POINT OF CARE [facility] Aishwarya 10-18-2023 EUSEB[place] Telephone (FAMPWS) ----- JUANBONNIE ([id number]) 1955 M Date Time Provider Department 10/18/23 JUSTINE LE[facility] During your visit today, we recorded the following information about you: Justine Leary APRN.SECOND BAKER 10/18/2023 1:27 PM Signed Can you please [...] Status:Closed by NILDA VIVAS on 10/18/23 Normal [facility] US KIDNEY/BLADDERon 10-15-19 US KIDNEY/BLADDER * * [...] Nephrolithiasis Small postvoid residual urinary bladder volume Front Desk: DEVANG Transcribe Date/Time: Oct 16 2023 10:37A Dictated by : MARGARET PALAFOX MD This examination was interpreted and the report reviewed and electronically signed by: MARGARET PALAFOX MD on Oct 16 2023 10:43AM EST [id number] Normal [facility] BONNIE MARTINEZ ([id number]) 1955 M Date Time Provider Department 10/03/23 JUSTINE LEARY [facility] During your visit today, we [...] [R97.20] Order(s):CONSULT TO UROLOGY [9041] Order #: [id number]: 1 FUTURE Meds Comments as of 03/15/2018: [...] Status:Closed by JUSTINE LEARY on 10/03/23 Normal [facility] Bacteria Ur Culton Bacteria identified Cx Nom (U) CULTURE, URINE: No growth (<1,000 CFU/ml) Normal [facility] Comment on above: Performed By: #### 6 30-4 ####[facility] [id number] [place] [address] [place] CBC W Auto Differential pane l (Bld)on 10-02-2023 Basophils (Bld) [#/Vol] 0.06 10*3/uL [facility] Basophils/100 WBC (Bld) 0.7 % [facility] Differential cell count method Nom (Bld) Auto [facility] Eosinophils (Bld) [#/Vol] 0.24 10*3/uL [facility] Eosinophils/100 WBC (Bld) 2.8 % [facility] Erythrocyte distribution width (RBC) [Ratio] 12.5 % 11.5 - 15.0 % [facility] Hematocrit (Bld) [Volume fraction] 40.2 % 39.0 - 51.0 % [facility] Hemoglobin (Bld) [Mass/Vol] 13.2 g/dL 13.0 - 17.0 g/dL [facility] Immature granulocytes (Bld) [#/Vol] 0.03 10*3/uL [facility] Immature granulocytes/100 WBC (Bld) 0.4 % [facility] Interpretation and review of laboratory results Abnormal [facility] Lymphocytes (Bld) [#/Vol] 1.49 10*3/uL [facility] Lymphocytes/100 WBC (Bld) 17.6 % [facility] MCH (RBC) [Entitic mass] 29.5 pg 26.0 - 34.0 pg [facility] MCHC (RBC) [Mass/Vol] 32.8 g/dL 30.5 - 36.0 g/dL [facility] MCV (RBC) [Entitic vol] 89.7 fL 80.0 - 100.0 fL [facility] Monocytes (Bld) [#/Vol] 1.29 10*3/uL High [facility] Monocytes/100 WBC (Bld) 15.3 % [facility] Neutrophils (Bld) [#/Vol] 5.34 10*3/uL [facility] Neutrophils/100 WBC (Bld) 63.2 % [facility] Nucleated RBC (Bld) [#/Vol] [facility] Nucleated RBC/100 WBC (Bld) [Ratio] 0.0 % /100 WBC [facility] Platelet mean volume (Bld) [Entitic vol] 10.6 fL 9.0 - 12.7 fL [facility] Platelets (Bld) [#/Vol] 270 10*3/uL [facility] RBC (Bld) [#/Vol] 4.48 10*6/uL 4.20 - 6.00 m/uL [facility] WBC (Bld) [#/Vol] 8.45 10*3/uL [facility] Basophils (Bld) [#/Vol] 0.06 10*3/uL Normal <0.11 [facility] Comment on above: Order Comment: Speci men Type: BLOOD SPECIMENOrdering Facility: [facility] Address: [address] [place] [address] Performed By: #### 5 7021-8 ####[facility] [id number] [place] [address] [place] Basophils/100 WBC (Bld) 0.7 % Normal [facility] Comment on above: Order Comment: Speci men Type: BLOOD SPECIMENOrdering Facility: [facility] Address: [address] [place] [address] Performed By: #### 5 7021-8 ####[facility] [id number] [place] [address] [place] Differential cell count method Nom (Bld) Auto Normal [facility] Comment on above: Order Comment: Speci men Type: BLOOD SPECIMENOrdering Facility: [facility] Address: [address] [place] [address] Performed By: #### 5 7021-8 ####[facility] [id number] [place] [address] [place] Eosinophils (Bld) [#/Vol] 0.24 10*3/uL Normal <0.46 [facility] Comment on above: Order Comment: Speci men Type: BLOOD SPECIMENOrdering Facility: [facility] Address: [address] [place] [address] Performed By: #### 5 7021-8 ####[facility] [id number] [place] [address] [place] Eosinophils/100 WBC (Bld) 2.8 % Normal [facility] Comment on above: Order Comment: Speci men Type: BLOOD SPECIMENOrdering Facility: [facility] Address: [address] [place] [address] Performed By: #### 5 7021-8 ####[facility] [id number] [place] [address] [place] Erythrocyte distribution width (RBC) [Ratio] 12.5 % Normal 11.5-15.0 [facility] Comment on above: Order Comment: Speci men Type: BLOOD SPECIMENOrdering Facility: [facility] Address: [address] [place] [address] Performed By: #### 5 7021-8 ####[facility] [id number] [place] [address] [place] Hematocrit (Bld) [Volume fraction] 40.2 % Normal 39.0-51.0 [facility] Comment on above: Order Comment: Speci men Type: BLOOD SPECIMENOrdering Facility: [facility] Address: [address] [place] [address] Performed By: #### 5 7021-8 ####[facility] [id number] [place] [address] [place] Hemoglobin (Bld) [Mass/Vol] 13.2 g/dL Normal 13.0-17.0 [facility] Comment on above: Order Comment: Speci men Type: BLOOD SPECIMENOrdering Facility: [facility] Address: [address] [place] [address] Performed By: #### 5 7021-8 ####[facility] LABIA [id number] [place] [address] [place] Immature granulocytes (Bld) [#/Vol] 0.03 10*3/uL Normal <0.10 [facility] Comment on above: Order Comment: Speci men Type: BLOOD SPECIMENOrdering Facility: [facility] Address: [address] [place] [address] Performed By: #### 5 7021-8 ####[facility]CL[facility] [id number] [place] [address] [place] Immature granulocytes/100 WBC (Bld) 0.4 % Normal [facility] Comment on above: Order Comment: Speci men Type: BLOOD SPECIMENOrdering Facility: [facility] Address: [address] [place] [address] Performed By: #### 5 7021-8 ####[facility] LABIA [id number] [place] [address] [place] Lymphocytes (Bld) [#/Vol] 1.49 10*3/uL Normal 1.00-4.00 [facility] Comment on above: Order Comment: Speci men Type: BLOOD SPECIMENOrdering Facility: [facility] Address: [address] [place] [address] Performed By: #### 5 7021-8 ####[facility] LABIA [id number] [place] [address] [place] Lymphocytes/100 WBC (Bld) 17.6 % Normal [facility] Comment on above: Order Comment: Speci men Type: BLOOD SPECIMENOrdering Facility: [facility] Address: [address] [place] [address] Performed By: #### 5 7021-8 ####[facility] LABIA [id number] [place] [address] [place] MCH (RBC) [Entitic mass] 29.5 pg Normal 26.0-34.0 [facility] Comment on above: Order Comment: Speci men Type: BLOOD SPECIMENOrdering Facility: [facility] Address: [address] [place] [address] Performed By: #### 5 7021-8 ####[facility] LABIA [id number] [place] [address] [place] MCHC (RBC) [Mass/Vol] 32.8 g/dL Normal 30.5-36.0 [facility] Comment on above: Order Comment: Speci men Type: BLOOD SPECIMENOrdering Facility: [facility] Address: [address] [place] [address] Performed By: #### 5 7021-8 ####[facility]CL[facility] [id number] [place] [address] [place] MCV (RBC) [Entitic vol] 89.7 fL Normal 80.0-100.0 [facility] Comment on above: Order Comment: Speci men Type: BLOOD SPECIMENOrdering Facility: [facility] Address: [address] [place] [address] Performed By: #### 5 7021-8 ####[facility]CL[facility] [id number] [place] [address] [place] Monocytes (Bld) [#/Vol] 1.29 10*3/uL High <0.87 [facility] Comment on above: Order Comment: Speci men Type: BLOOD SPECIMENOrdering Facility: [facility] Address: [address] [place] [address] Performed By: #### 5 7021-8 ####[facility]CL[facility] [id number] [place] [address] [place] Monocytes/100 WBC (Bld) 15.3 % Normal [facility] Comment on above: Order Comment: Speci men Type: BLOOD SPECIMENOrdering Facility: [facility] Address: [address] [place] [address] Performed By: #### 5 7021-8 ####[facility]CL[facility] [id number] [place] [address] [place] Neutrophils (Bld) [#/Vol] 5.34 10*3/uL Normal 1.45-7.50 [facility] Comment on above: Order Comment: Speci men Type: BLOOD SPECIMENOrdering Facility: [facility] Address: [address] [place] [address] Performed By: #### 5 7021-8 ####[facility]CL[facility] [id number] [place] [address] [place] Neutrophils/100 WBC (Bld) 63.2 % Normal [facility] Comment on above: Order Comment: Speci men Type: BLOOD SPECIMENOrdering Facility: [facility] Address: [address] [place] [address] Performed By: #### 5 7021-8 ####[facility] LABIA [id number] [place] [address] [place] Nucleated RBC (Bld) [#/Vol] 10*3/uL Normal <0.01 [facility] Comment on above: Order Comment: Speci men Type: BLOOD SPECIMENOrdering Facility: [facility] Address: [address] [place] [address] Performed By: #### 5 7021-8 ####[facility] LABIA [id number] [place] [address] [place] Nucleated RBC/100 WBC (Bld) [Ratio] 0.0 /100 WBC Normal [facility] Comment on above: Order Comment: Speci men Type: BLOOD SPECIMENOrdering Facility: [facility] Address: [address] [place] [address] Performed By: #### 5 7021-8 ####[facility] LABIA [id number] [place] [address] [place] Platelet mean volume (Bld) [Entitic vol] 10.6 fL Normal 9.0-12.7 [facility] Comment on above: Order Comment: Speci men Type: BLOOD SPECIMENOrdering Facility: [facility] Address: [address] [place] [address] Performed By: #### 5 7021-8 ####[facility] LABIA [id number] [place] [address] [place] Platelets (Bld) [#/Vol] 270 10*3/uL Normal 150-400 [facility] Comment on above: Order Comment: Speci men Type: BLOOD SPECIMENOrdering Facility: [facility] Address: [address] [place] [address] Performed By: #### 5 7021-8 ####[facility] LABCLIA [id number] [place] [address] [place] RBC (Bld) [#/Vol] 4.48 10*6/uL Normal 4.20-6.00 [facility] Comment on above: Order Comment: Speci men Type: BLOOD SPECIMENOrdering Facility: [facility] Address: [address] [place] [address] Performed By: #### 5 7021-8 ####[facility] LABCLIA [id number] [place] [address] [place] WBC (Bld) [#/Vol] 8.45 10*3/uL Normal 3.70-11.00 [facility] Comment on above: Order Comment: Speci men Type: BLOOD SPECIMENOrdering Facility: [facility] Address: [address] [place] [address] Performed By: #### 5 7021-8 ####[facility] LABCLIA [id number] [address] [place] CNOVon 10-02-2023 [facility] ----- BONNIE MARTINEZ ([id number]) 1955 M Date Time Provider Department 10/02/23 10:00 AM [facility] During your visit today, we recorded [...] HISTORY OF Comment: right 4th and 5th injury-[facility] 1985: PAST SURGICAL HISTORY OF; Right Comment: [...] discussed and patient voices understanding. Justine Leary APRN.SECOND BAKER This note was partially generated using Canary[employer] recognition system. Note was (more content not included)... Normal [facility] metabolic 2000 panelon 10-02-2023 Albumin [Mass/Vol] 4.1 g/dL 3.9 - 4.9 g/dL [facility] ALP [Catalytic activity/Vol] 64 U/L 38 - 113 U/L [facility] ALT [Catalytic activity/Vol] 20 U/L 10 - 54 U/L [facility] Anion gap [Moles/Vol] 12 mmol/L 8 - 15 mmol/L [facility] AST [Catalytic activity/Vol] 22 U/L 14 - 40 U/L [facility] Bilirubin [Mass/Vol] 0.4 mg/dL 0.2 - 1 .3 mg/dL [facility] Calcium [Mass/Vol] 9.7 mg/dL 8.5 - 10. 2 mg/dL [facility] Chloride [Moles/Vol] 101 mmol/L 98 - 10 7 mmol/L [facility] CO2 [Moles/Vol] 23 mmol/L 22 - 30 mmol/L [facility] Creatinine [Mass/Vol] 1.25 mg/dL High 0.73 - 1.22 mg/dL [facility] GFR/1.73 sq M.predicted among non-blacks MDRD (S/P/Bld) [Vol rate/Area] 64 mL/min/{1.73_m2} - PINF [facility] Comment on above: Estimated Glomerular Filtration [...] 109 mg/dL High 74 - 99 mg/dL [facility] Comment on above: The [place] Diabete s Association (ADA) provides guidance for [...] Standards of Medical Care in Diabetes 2016, [place] Diabetes Association. Diabetes Care. 2016.39(Suppl 1). Interpretation and review of laboratory results Abnormal [facility] Potassium [Moles/Vol] 4.3 mmol/L 3.7 - 5.1 mmol/L [facility] Protein [Mass/Vol] 8.5 g/dL High 6.3 - 8.0 g/dL [facility] Sodium [Moles/Vol] 136 mmol/L 136 - 144 mmol/L [facility] Urea nitrogen [Mass/Vol] 14 mg/dL 9 - 24 mg/dL [place] Albumin [Mass/Vol] 4.1 g/dL Normal 3.9-4.9 [facility] Comment on above: Order Comment: Speci men Type: BLOOD SPECIMENOrdering Facility: [facility] Address: [address] [place] [address] Performed By: #### 1 0886-0, 52914-7 ####[facility] LABCLIA [id number] [place] [address] [place] ALP [Catalytic activity/Vol] 64 U/L Normal 38-113 [facility] Comment on above: Order Comment: Speci men Type: BLOOD SPECIMENOrdering Facility: [facility] Address: [address] [place] [address] Performed By: #### 1 0886-0, 21926-0 ####[facility] LABCLIA [id number] [place] [address] [place] ALT [Catalytic activity/Vol] 20 U/L Normal 10-54 [facility] Comment on above: Order Comment: Speci men Type: BLOOD SPECIMENOrdering Facility: [facility] Address: [address] [place] [address] Performed By: #### 1 0886-0, 97040-0 ####[facility] LABIA [id number] [place] [address] [place] Anion gap [Moles/Vol] 12 mmol/L Normal 8-15 [facility] Comment on above: Order Comment: Speci men Type: BLOOD SPECIMENOrdering Facility: [facility] Address: [address] [place] [address] Performed By: #### 1 0886-0, 16143-0 ####[facility] LABCLIA [id number] [place] [address] [place] AST [Catalytic activity/Vol] 22 U/L Normal 14-40 [facility] Comment on above: Order Comment: Speci men Type: BLOOD SPECIMENOrdering Facility: [facility] Address: [address] [place] [address] Performed By: #### 1 0886-0, ####[facility] LABCLIA [id number] [place] [address] [place] Bilirubin [Mass/Vol] 0.4 mg/dL Normal 0.2-1.3 [facility] Comment on above: Order Comment: Speci men Type: BLOOD SPECIMENOrdering Facility: [facility] Address: [address] [place] [address] Performed By: #### 1 0886-0, ####[facility] LABCLIA [id number] [place] [address] [place] Calcium [Mass/Vol] 9.7 mg/dL Normal 8.5-10.2 [facility] Comment on above: Order Comment: Speci men Type: BLOOD SPECIMENOrdering Facility: [facility] Address: [address] [place] [address] Performed By: #### 1 0886-0, ####[facility] LABCLIA [id number] [place] [address] [place] Chloride [Moles/Vol] 101 mmol/L Normal 98-107 [facility] Comment on above: Order Comment: Speci men Type: BLOOD SPECIMENOrdering Facility: [facility] Address: [address] [place] [address] Performed By: #### 1 0886-0, ####[facility] LABCLIA [id number] [place] [address] [place] CO2 [Moles/Vol] 23 mmol/L Normal 22-30 [facility] Comment on above: Order Comment: Speci men Type: BLOOD SPECIMENOrdering Facility: [facility] Address: [address] [place] [address] Performed By: #### 1 0886-0, 93228-4 ####[facility] LABCLIA [id number] [place] [address] [place] Creatinine [Mass/Vol] 1.25 mg/dL High 0.73-1.22 [facility] Comment on above: Order Comment: Speci men Type: BLOOD SPECIMENOrdering Facility: [facility] Address: [address] [place] [address] Performed By: #### 1 0886-0, 40908-3 ####[facility] LABIA [id number] [place] [address] [place] Creatinine and Glomerular filtration rate.predicted panel (S/P/Bld) 64 mL/min/1.73m??? Normal >=60 [facility] Comment on above: Order Comment: Speci men Type: BLOOD SPECIMENOrdering Facility: [facility] Address: [address] [place] [address] Result Comment: Yue mated Glomerular Filtration Rate [...] actual GFR. Performed By: #### 1 0886-0, 09568-1 ####[facility] LABCLIA [id number] [place] [address] [place] Glucose [Mass/Vol] 109 mg/dL High 74-99 [facility] Comment on above: Order Comment: Speci men Type: BLOOD SPECIMENOrdering Facility: [facility] Address: [address] [place] [address] Result Comment: The [place] Diabetes Association (ADA) provides guidance for cutoff [...] Standards of Medical Care in Diabetes 2016, [place] Diabetes Association. Diabetes Care. 2016.39(Suppl 1). Performed By: #### 1 0886-0, 82997-0 ####[facility] LABCLIA [id number] [place] [address] [place] Potassium [Moles/Vol] 4.3 mmol/L Normal 3.7-5.1 [facility] Comment on above: Order Comment: Speci men Type: BLOOD SPECIMENOrdering Facility: [facility] Address: [address] [place] [address] Performed By: #### 1 0886-0, 95353-5 ####[facility] LABCLIA [id number] [place] [address] [place] Protein [Mass/Vol] 8.5 g/dL High 6.3-8.0 [facility] Comment on above: Order Comment: Speci men Type: BLOOD SPECIMENOrdering Facility: [facility] Address: [address] [place] [address] Performed By: #### 1 0886-0, ####[facility] LABCLIA [id number] [place] [address] [place] Sodium [Moles/Vol] 136 mmol/L Normal 136-144 [facility] Comment on above: Order Comment: Speci men Type: BLOOD SPECIMENOrdering Facility: [facility] Address: [address] [id number] Performed By: #### 1 0886-0, 78596-1 ####[facility] LABCLIA [id number] [place] [address] [place] Urea nitrogen [Mass/Vol] 14 mg/dL Normal 9-24 [facility] Comment on above: Order Comment: Speci men Type: BLOOD SPECIMENOrdering Facility: [facility] Address: [address] [id number] Performed By: #### 1 0886-0, 89142-9 ####[facility] LABCLIA [id number] [place] [address] [place] Free PSA [Mass/Vol]on 2023 Free PSA/Total PSA [Mass fraction] 17 % [facility] Comment on above: Total and free [...] Interpretation and review of laboratory results Abnormal [facility] Prostate specific Ag [Mass/Vol] 7.55 ng/mL High NINF - 2.60 ng/mL [facility] Comment on above: Total PSA test [...] Specific Antigen. N Engl J Med 2003,349:335-42. [facility] Free PSA/Total PSA [Mass fraction] 17 % Normal [facility] Comment on above: Order Comment: Speci men Type: BLOOD SPECIMENOrdering Facility: [facility] Address: [address] [place] [address] Result Comment: Tota l and free PSA [...] 12.2% 15.8% Performed By: #### 1 0886-0, 15672-3 ####[facility] LABCLIA [id number] [place] [address] [place] Prostate specific Ag [Mass/Vol] 7.55 ng/mL High <2.60 [facility] Comment on above: Order Comment: Speci men Type: BLOOD SPECIMENOrdering Facility: [facility] Address: [address] [place] [address] Result Comment: Tota l PSA test methodology [...] Med 2003,349:335-42. Performed By: #### 1 0886-0, 37724-7 ####[facility] LABCLIA [id number] [place] [address] [place] UA DIP, URINE (POC)on 2023 BILIRUBIN UA (POCT) Negative Negative [facility] CLARITY UA (POCT) Clear [facility] COLOR UA (POCT) Yellow [facility] GLUCOSE UA (POCT) Negative Negative mg/dL [facility] Hemoglobin Ql (U) Trace-lysed Abnormal Negative [facility] Interpretation and review of laboratory results Abnormal [facility] KETONE UA (POCT) Negative Negative mg/dL [facility] LEUKOCYTES UA (POCT) Negative Negative [facility] NITRITE UA (POCT) Negative Negative [facility] PH UA (POCT) 6.0 4.5 - 8.0 [facility] Protein Ql (U) Negative Negative mg/dL [facility] SPECIFIC GRAVITY UA (POCT) 1.015 1.005 - 1.030 [facility] UROBILINOGEN UA (POCT) 0.2 Normal E.U./dL [facility] Location:[address], [place], [place], [address] [place] [address] POINT OF CARE [facility] Urinalysis complete panel (U )on 10-02-2023 Bacteria LM.HPF (Urine sed) [#/Area] Negative Normal Negative [facility] Comment on above: Order Comment: Speci men Type: URINE SPECIMENOrdering Facility: [facility] Address: [address] [place] [address] Performed By: #### 2 4356-8 ####[facility] LABCLIA [id number] [place] [address] [place] Bilirubin Ql (U) Negative Normal Negative [facility] Comment on above: Order Comment: Speci men Type: URINE SPECIMENOrdering Facility: [facility] Address: [address] [place] [address] Performed By: #### 2 4356-8 ####[facility] LABCLIA [id number] [place] [address] [place] Clarity (Unsp spec) Clear Normal Clear [facility] Comment on above: Order Comment: Speci men Type: URINE SPECIMENOrdering Facility: [facility] Address: [address] [place] [address] Performed By: #### 2 4356-8 ####[facility] LABCLIA [id number] [place] [address] [place] Color (U) Yellow Normal Yellow [facility] Comment on above: Order Comment: Speci men Type: URINE SPECIMENOrdering Facility: [facility] Address: [address] [place] [address] Performed By: #### 2 4356-8 ####[facility] LABCLIA [id number] [place] [address] [place] Epithelial cells LM.HPF (Urine sed) [#/Area] None Seen Normal [facility] Comment on above: Order Comment: Speci men Type: URINE SPECIMENOrdering Facility: [facility] Address: [address] [place] [address] Performed By: #### 2 4356-8 ####[facility] LABCLIA [id number] [place] [address] [place] Glucose Test strip (U) [Mass/Vol] Negative Normal Negative [facility] Comment on above: Order Comment: Speci men Type: URINE SPECIMENOrdering Facility: [facility] Address: [address] [place] [address] Performed By: #### 2 4356-8 ####[facility] LABCLIA [id number] [place] [address] [place] Hemoglobin Ql (U) Negative Normal Negative [facility] Comment on above: Order Comment: Speci men Type: URINE SPECIMENOrdering Facility: [facility] Address: [address] [place] [address] Performed By: #### 2 4356-8 ####[facility] LABCLIA [id number] [place] [address] [place] Hyaline casts (Urine sed) [#/Area] 0 /[LPF] Normal 0 /LPF [facility] Comment on above: Order Comment: Speci men Type: URINE SPECIMENOrdering Facility: [facility] Address: [address] [place] [address] Performed By: #### 2 4356-8 ####[facility] LABCLIA [id number] [place] [address] [place] Ketones Ql (U) Negative Normal Negative [facility] Comment on above: Order Comment: Speci men Type: URINE SPECIMENOrdering Facility: [facility] Address: [address] [place] [address] Performed By: #### 2 4356-8 ####[facility] LABCLIA [id number] [place] [address] [place] Leukocyte esterase Test strip Ql (U) Negative Normal Negative [facility] Comment on above: Order Comment: Speci men Type: URINE SPECIMENOrdering Facility: [facility] Address: [address] [place] [address] Performed By: #### 2 4356-8 ####[facility] LABCLIA [id number] [place] [address] [place] Nitrite Ql (U) Negative Normal Negative [facility] Comment on above: Order Comment: Speci men Type: URINE SPECIMENOrdering Facility: [facility] Address: [address] [place] [address] Performed By: #### 2 4356-8 ####[facility] LABCLIA [id number] [place] [address] [place] pH (U) 6.0 [pH] Normal <8.5 [facility] Comment on above: Order Comment: Speci men Type: URINE SPECIMENOrdering Facility: [facility] Address: [address] [place] [address] Performed By: #### 2 4356-8 ####[facility] LABCLIA [id number] [place] [address] [place] Protein (U) [Mass/Vol] Negative Normal Negative [facility] Comment on above: Order Comment: Speci men Type: URINE SPECIMENOrdering Facility: [facility] Address: [address] [place] [address] Performed By: #### 2 4356-8 ####[facility] LABCLIA [id number] [place] [address] [place] RBC LM.HPF (Urine sed) [#/Area] 0-2 /HPF Normal 0-2 /HPF [facility] Comment on above: Order Comment: Speci men Type: URINE SPECIMENOrdering Facility: [facility] Address: [address] [place] [address] Performed By: #### 2 4356-8 ####[facility] LABIA [id number] [place] [address] [place] Specific gravity (U) [Rel density] 1.013 Normal 1.005-1.03 0 [facility] Comment on above: Order Comment: Speci men Type: URINE SPECIMENOrdering Facility: [facility] Address: [address] [place] [address] Performed By: #### 2 4356-8 ####[facility] LABIA [id number] [place] [address] [place] Urobilinogen Ql (U) 0.2 EU/dL Normal 0.2-1.0 EU/dL [facility] Comment on above: Order Comment: Speci men Type: URINE SPECIMENOrdering Facility: [facility] Address: [address] [place] [address] Performed By: #### 2 4356-8 ####[facility] LABIA [id number] [place] [address] [place] WBC LM.HPF (Urine sed) [#/Area] 0-5 /HPF Normal 0-5 /HPF [facility] Comment on above: Order Comment: Speci men Type: URINE SPECIMENOrdering Facility: [facility] Address: [address] [place] [address] Performed By: #### 2 4356-8 ####[facility] LABIA [id number] [place] [address] [place] [facility] BONNIE MARTINEZ ([id number]) 1955 M Date Time Provider Department 09/17/23 [facility] During your visit today, we recorded the following information about you: Justine Leary APRN.SECOND BAKER 09/17/2023 7:07 AM Signed Can you please [...] Encounter Status:Closed by JESSE GONZALEZ on 09/17/[address] [facility] ----- BONNIE MARTINEZ ([id number]) 1955 M Date Time Provider Department 09/14/23 JUSTINE LEARY During your visit today, we recorded the following information about you: Justine Leary APRN.SECOND BAKER 09/14/2023 7:56 AM Signed Can you please call the patient and let him know that I reviewed his knee x-ray results. 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 This is usually seen with children but can affect adults as well. We treat this with RICE therapy, rest, ice, compression, elevation. NSAIDs are used to reduce inflammation, he may use [id number] or consider taking a once a day [...] Status:Closed by JESSE GONZALEZ on 09/14/23 Normal [facility] XR HIP BILATERAL 5V PEL/AP/L AT EACH HIPon 09-14-2023 IMPRESSION: Mild degenerative changes at the hips with no acute fractures seen [facility] Transcribe Date/Time: Sep 14 2023 7:10P Dictated by : MIRACLE VARGAS MD This examination was interpreted and the report reviewed and electronically signed by: MIRACLE VARGAS MD on Sep 14 2023 7:11PM [facility] DIVISION OF RADIOLOGY * * [...] the hips with no acute fractures seen [facility] Trans[facility] Date/Time: Sep 14 2023 7:10P Dictated by : MIRACLE VARGAS MD This examination was interpreted and the report reviewed and electronically signed by: MIRACLE VARGAS MD on Sep 14 2023 7:11PM EST [place] XR Knee - bilateral 4 Viewso n 09-13-2023 IMPRESSION: No acute osseous abnormality. Front Desk: [facility] Transcribe Date/Time: Sep 13 2023 8:04P Dictated by : OTIS MONTENEGRO DO This examination was interpreted and the report reviewed and electronically signed by: OTIS MONTENEGRO DO on Sep 13 2023 8:06PM [facility] DIVISION OF RADIOLOGY * * [...] tibial tuberosity enthesophytes. DIVISION OF RADIOLOGY [facility] * * *Final Report* * [...] enthesophytes. IMPRESSION IMPRESSION: No acute osseous abnormality. 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 Similar to [place]-Schlatter's disease. Nontender with palpation, no edema noted. [...] voices unders (more content not included)... Normal [facility] No Panel Informationon 09-11 Radiology Study observation (narrative) [facility] XR HIP ROSEY 5V PEL+ AP/LAT [...] the hips with no acute fractures seen Front Desk: [facility] Transcribe Date/Time: Sep 14 2023 7:10P Dictated by : MIRACLE VARGAS MD This examination was interpreted and the report reviewed and electronically signed by: MIRACLE VARGAS MD on Sep 14 2023 7:11PM EST [id number] Normal [facility] XR KNEE 4V AP/PA/LAT/MERCH B [facility] 09-12-2023 XR KNEE 4V AP/PA/LAT/MERCH ROSEY [...] tuberosity enthesophytes. IMPRESSION: No acute osseous abnormality. Front Desk: [facility] Transcribe Date/Time: Sep 13 2023 8:04P Dictated by : OTIS MONTENEGRO DO This examination was interpreted and the report reviewed and electronically signed by: OTIS MONTENEGRO DO on Sep 13 2023 8:06PM EST [id number] Normal [facility] CNTHERAPYon 04-12-2023 CNTHERAPY OT/PT/Speech Visit ( PTWS) ----- BONNIE MARTINEZ ([id number]) 1955 M Date Time Provider Department 04/12/23 9:30 AM OJLENE ROMERO PTWS Date Time Provider Department Center 04/12/2023 9:30 AM [id number], MARIAH PTWS [place] Reason for Visit: [...] - uses OTC Sleep-Aid nightly (Benadryl) ----- [employer]: Addendum Therapy (PT/OT/Speech/Resp) ID: [id number] 04/12/2023 9:58 AM Author: JOLENE ROMERO Signed by JOLENE ROMERO PTA on 04/12/2023 at 9:58 AM * * * This document replaces document [id number] * * * Document text: Program_ID:[id number] Access Code: [email or web address] URL: [email or web address] Date: 04-12-2023 Prepared By: Bel Renee Program [...] - 2 sets - 10 reps Normal [facility] THERAPY NTon 04-12-2023 THERAPY NT HNO ID: [id number] Author: JOLENE ROMERO PTA Service: ? Author Type: Bottle Tester Type: Therapy (PT/OT/Speech/Resp) Filed: 04/12/2023 09:38 Note Text: Program_ID:[id number] Access Code: [email or web address] URL: [email or web address] Date: 04-12-2023 Prepared By: Bel Renee Program [...] - 1 sets - 3 reps Normal [facility] CNTHERAPYon 04-10-2023 CNTHERAPY OT/PT/Speech Visit ( PTWS) ----- BONNIE MARTINEZ ([id number]) 1955 M Date Time Provider Department 04/10/23 3:00 PM BEL RENEE Date Time Provider Department Center 04/10/2023 3:00 PM [id number] RENEE PTTOM Cisneros Reason for Visit: Physical [...] - uses OTC Sleep-Aid nightly (Benadryl) ----- [employer]: Addendum Therapy (PT/OT/Speech/Resp) ID: [id number] 04/10/2023 3:22 PM Author: BEL RENEE Signed by BEL RENEE PT on 04/10/2023 at 3:22 PM * * * This document replaces document [id number] * * * Document text: Program_ID:[id number] Access Code: [email or web address] URL: [email or web address]/ Date: 04-10-2023 Prepared By: Bel Renee Program Notes Exercises - Standing Shoulder Posterior Capsule Stretch - 1-2 x daily - 7 x weekly - 3 sets - 1 reps - Doorway Pec Stretch at 60 Degrees Abduction with Arm Straight - 1-2 x daily - 7 x weekly - 3 sets - 1 reps Normal [facility] THERAPY NTon 04-10-2023 THERAPY NT HNO ID: [id number] Author: BEL RENEE PT Service: ? Author Type: Physical Therapist Type: Therapy (PT/OT/Speech/Resp) Filed: 04/10/2023 15:20 Note Text: Program_ID:[id number] Access Code: [email or web address] URL: [email or web address] Date: 04-10-2023 Prepared By: Bel Renee Program Notes Exercises - Standing Shoulder Posterior Capsule Stretch - 1-2 x daily - 7 x weekly - 3 sets - 1 reps Normal [facility] CNTHERAPYon 04-04-2023 CNTHERAPY OT/PT/Speech Visit ( PTWS) ----- BONNIE MARTINEZ ([id number]) 1955 M Date Time Provider Department 04/04/23 8:15 AM BEL RENEE Date Time Provider Department Center 04/04/2023 8:15 AM [id number] RENEE [employer] Reason for Visit: PT Eval [747] Primary [...] - uses OTC Sleep-Aid nightly (Benadryl) ----- [employer]: Addendum Therapy (PT/OT/Speech/Resp) ID: [id number] 04/04/2023 8:42 AM Author: BEL RENEE Signed by BEL RENEE PT on 04/04/2023 at 8:42 AM * * * This document replaces document [id number] * * * Document text: Program_ID:[id number] Access Code: [email or web address] URL: [email or web address]/ Date: 04-04-2023 Prepared By: Bel Renee Program Notes Exercises - Ulnar Nerve/Median Fackler- Low Level - 3-5 x daily - 7 x weekly - 2 sets - 10 reps - Seated Scapular Retraction - 2-3 x daily - 7 x weekly - 3 sets - 15 reps - Doorway Pec Stretch at 60 Degrees Abduction with Arm Straight - 2-3 x daily - 7 x weekly - 3 sets - 1 reps Normal [facility] THERAPY NTon 04-04-2023 THERAPY NT HNO ID: [id number] Author: BEL RENEE PT Service: ? Author Type: Physical Therapist Type: Therapy (PT/OT/Speech/Resp) Filed: 04/04/2023 08:40 Note Text: Program_ID:[id number] Access Code: [email or web address] URL: [email or web address]/ Date: 04-04-2023 Prepared By: Bel O'Derrick Program Notes Exercises - Ulnar Nerve/Median Fackler- Low Level - 3-5 x daily - 7 x weekly - 2 sets - 10 reps Normal [facility] CNOVon 01-15-2023 CNOV Office Visit (ORTHWS ) ----- BONNIE MARTINEZ ([id number]) 1955 M Date Time Provider Department 01/15/23 [...] Jasmina Reyes PA-C Department of Orthopaedics Orthopaedics [facility] [address] [facility] [address] Dept: [phone] Dept January 15, 2023 Consultation requested by [...] space narrowing and bilateral neural foraminal narrowing. Front Desk: [facility] Transcribe Date/Time: Nov 21 2022 11:36A Dictated by : KAYLI (more content not included)... 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 Front Desk: [facility] Transcribe Date/Time: Nov 21 2022 11:36A Dictated by : JEANNETTE TUCKER MD This examination was interpreted and the report reviewed and electronically signed by: JEANNETTE TUCKER MD on Nov 21 2022 11:43AM [facility] DIVISION OF RADIOLOGY * * [...] space narrowing and bilateral neural foraminal narrowing. Front Desk: [facility] Transcribe Date/Time: Nov 21 2022 11:36A Dictated by : JEANNETTE TUCKER MD This examination was interpreted and the report reviewed and electronically signed by: JEANNETTE TUCKER MD on Nov 21 2022 11:43AM [facility] XR Shoulder - right 3 Viewso n 11-21-2022 IMPRESSION: No acute osseous abnormality Front Desk: [facility] Transcribe Date/Time: Nov 21 2022 4:33P Dictated by : SHELIA HIGGINS MD This examination was interpreted and the report reviewed and electronically signed by: SHELIA HIGGINS MD on Nov 21 2022 4:34PM [facility] DIVISION OF RADIOLOGY * * [...] are maintained. DIVISION OF RADIOLOGY [facility] * * *Final Report* [...] maintained. IMPRESSION IMPRESSION: No acute osseous abnormality Front Desk: [facility] Transcribe Date/Time: Nov 21 2022 4:33P Dictated by : SHELIA HIGGINS MD This examination was interpreted and the report reviewed and electronically signed by: SHELIA HIGGINS MD on Nov 21 2022 4:34PM EST [facility] XR Shoulder - right 3 ViewsO rdered By: Ccf Provider on 11-21-2022 [facility] No Panel Informationon 11-20 Radiology Study observation (narrative) [facility] CBC WITH MANUAL DIFF ([id number]) Ordered By: Manager [employer] on 06-24-2013 Basophils (Bld) [#/Vol] 0.0 {x10E3/uL} Normal 0.0-0.2 [facility] Work Phone: Comment on above: PATIENT WAS FASTINGP ERFORMED BY: JAMA [facility] Mllwjl0887 [facility] [id number] Information: [id number] Basophils/100 WBC (Bld) 0 % Normal 0-3 [facility] Work Phone: Comment on above: PATIENT WAS FASTINGP ERFORMED BY: [address] [id number] Information: [id number] Eosinophils (Bld) [#/Vol] 0.2 {x10E3/uL} Normal 0.0-0.4 [facility] Work Phone: Comment on above: PATIENT WAS FASTINGP ERFORMED BY: [address] [id number] Information: [id number],[id number] Eosinophils/100 WBC (Bld) 3 % Normal 0-5 [facility] Work Phone: Comment on above: PATIENT WAS FASTINGP ERFORMED BY: [address] [id number] Information: [id number] Erythrocyte distribution width (RBC) [Ratio] 13.0 % Normal 12.3-15.4 [facility] Work Phone: Comment on above: PATIENT WAS FASTINGP ERFORMED BY: [address] [id number] Information: [id number] Hematocrit (Bld) [Volume fraction] 42.7 % Normal 37.5-51.0 [facility] Work Phone: Comment on above: PATIENT WAS FASTINGP ERFORMED BY: [address] [id number] Information: [id number] Hemoglobin (Bld) [Mass/Vol] 14.1 g/dL Normal 12.6-17.7 [facility] Work Phone: Comment on above: PATIENT WAS FASTINGP ERFORMED BY: [address] [id number] Information: [id number] Immature granulocytes (Bld) [#/Vol] 0.0 {x10E3/uL} Normal 0.0-0.1 [facility] Work Phone: Comment on above: PATIENT WAS FASTINGP ERFORMED BY: JAMA [facility]6[address] [facility] [id number] Information: [id number] Immature granulocytes/100 WBC (Bld) 0 % Normal 0-2 [facility] Work Phone: Comment on above: PATIENT WAS FASTINGP ERFORMED BY: [address] [id number] Information: [id number] Lymphocytes (Bld) [#/Vol] 2.1 {x10E3/uL} Normal 0.7-3.1 [facility] Work Phone: Comment on above: PATIENT WAS FASTINGP ERFORMED BY: [address] [id number] Information: [id number],[id number] Lymphocytes/100 WBC (Bld) 32 % Normal 14-46 [facility] Work Phone: Comment on above: PATIENT WAS FASTINGP ERFORMED BY: [address] [id number] Information: [id number] MCH (RBC) [Entitic mass] 29.4 pg Normal 26.6-33.0 [facility] Internal Medicine Work Phone: Comment on above: PATIENT WAS FASTINGP ERFORMED BY: [address] [id number] Information: [id number] MCHC (RBC) [Mass/Vol] 33.0 g/dL Normal 31.5-35.7 [facility] Internal Medicine Work Phone: Comment on above: PATIENT WAS FASTINGP ERFORMED BY: [address] [id number] Information: [id number] MCV (RBC) [Entitic vol] 89 fL Normal 79-97 [facility] Work Phone: Comment on above: PATIENT WAS FASTINGP ERFORMED BY: [address] [place] [id number] Information: [id number],[id number] Monocytes (Bld) [#/Vol] 0.6 {x10E3/uL} Normal 0.1-0.9 [facility] Work Phone: Comment on above: PATIENT WAS FASTINGP ERFORMED BY: [facility]6[address] [facility] [id number] Information: [id number] Monocytes/100 WBC (Bld) 8 % Normal 4-12 [facility] Work Phone: Comment on above: PATIENT WAS FASTINGP ERFORMED BY: [facility]6[address] [facility] [id number] Information: [id number],[id number] Neutrophils (Bld) [#/Vol] 3.8 {x10E3/uL} Normal 1.4-7.0 [facility] Work Phone: Comment on above: PATIENT WAS FASTINGP ERFORMED BY: [facility]6[address] [facility] [id number] Information: [id number] Neutrophils/100 WBC (Bld) 57 % Normal 40-74 [facility] Work Phone: Comment on above: PATIENT WAS FASTINGP ERFORMED BY: [facility] Qncmbn3617 [facility] [id number] Information: [id number] Platelets (Bld) [#/Vol] 228 {x10E3/uL} Normal 155-379 [facility] Work Phone: Comment on above: PATIENT WAS FASTINGP ERFORMED BY: [facility] Liivak8[address] [facility] [id number] Information: 695762,[id number] RBC (Bld) [#/Vol] 4.79 {x10E6/uL} Normal 4.14-5.[address] [facility] Internal Medicine Work Phone: Comment on above: PATIENT WAS FASTINGP ERFORMED BY: JAMA Nogueira[address] [facility] Hospitalbl[facility] [place] [id number] Information: 215257,[id number] WBC (Bld) [#/Vol] 6.7 {x10E3/uL} Normal 3.4-10.8 [facility] Internal Medicine Work Phone: Comment on above: PATIENT WAS FASTINGP ERFORMED BY: JAMA Jiménezlin[address] [facility]in [place] [id number] Information: [id number] LIPID PANEL ([id number])Ordered B y: Manager [employer] on 06-24-2013 Cholesterol [Mass/Vol] 155 mg/dL Normal 100-199 [facility] Work Phone: Comment on above: PATIENT WAS FASTINGP ERFORMED BY: JAMA Jiménezlin[address] [facility]in [place] [id number] Cholesterol in HDL [Mass/Vol] 45 mg/dL Normal [facility] Work Phone: Comment on above: According to ATP-III Guidelines, HDL-C >59 mg/dL is considered anegative risk factor for CHD. PATIENT WAS FASTINGP ERFORMED BY: JAMA Teresa Jiménezlin[address] [facility]in [place] [id number] Cholesterol in LDL [Mass/Vol] 89 mg/dL Normal 0-99 [facility] Work Phone: Comment on above: PATIENT WAS FASTINGP ERFORMED BY: JAMA [facility] Oqnchf[address] [facility]in [place] [id number] Cholesterol in LDL/Cholesterol in HDL [Mass ratio] 2.0 {ratio_units} Normal 0.0-3.6 [facility] Work Phone: Comment on above: PATIENT WAS FASTINGP ERFORMED BY: JAMA [facility] Judcck8889 [address]enez RoadDublin [place] [id number] Cholesterol in VLDL [Mass/Vol] 21 mg/dL Normal 5-40 [facility] Work Phone: Comment on above: PATIENT WAS FASTINGP ERFORMED BY: JAMA [facility] Vkfdmi4298 [address]enez RoadDublin [place] [id number] Triglyceride [Mass/Vol] 104 mg/dL Normal 0-149 [facility] Work Phone: Comment on above: PATIENT WAS FASTINGP ERFORMED BY: JAMA [facility] Zrmfqc3279 [address]enez RoadDublin [place] [id number] METABOLIC PANEL, COMPREHENSI VE ([id number])Ordered By: Manager [employer] on 06-24-2013 Albumin [Mass/Vol] 4.5 g/dL Normal 3.5-5.5 [facility] Internal Medicine Work Phone: Comment on above: PATIENT WAS FASTINGP ERFORMED BY: JAMA [facility] Funvxy8230 [address]enez RoadDublin [place] [id number] Albumin/Globulin [Mass ratio] 2.1 {ratio} Normal 1.1-2.5 [facility] Work Phone: Comment on above: PATIENT WAS FASTINGP ERFORMED BY: JAMA [facility] Xmbskl0421 [address] RoadDublin [place] [id number] ALP [Catalytic activity/Vol] 57 [iU]/L Normal 39-117 [facility] Work Phone: Comment on above: PATIENT WAS FASTINGP ERFORMED BY: JAMA [facility] Dxsknp9317 [address] RoadDublin [place] [id number] ALT [Catalytic activity/Vol] 23 [iU]/L Normal 0-44 [facility] Work Phone: Comment on above: PATIENT WAS FASTINGP ERFORMED BY: JAMA [facility] Oqahdd9919 [address] RoadDublin [place] [id number] AST [Catalytic activity/Vol] 20 [iU]/L Normal 0-40 [facility] Work Phone: Comment on above: PATIENT WAS FASTINGP ERFORMED BY: CB [facility] Vqxnhc8890 [address] RoadDublin [place] [id number] Bilirubin [Mass/Vol] 0.4 mg/dL Normal 0.0-1.2 [facility] Internal Medicine Work Phone: Comment on above: PATIENT WAS FASTINGP ERFORMED BY: CB [facility] Yvqueo2715 [address] RoadDublin [place] [id number] Calcium [Mass/Vol] 9.8 mg/dL Normal 8.7-10.2 [facility] Internal Medicine Work Phone: Comment on above: PATIENT WAS FASTINGP ERFORMED BY: CB [facility] Zrvewk7731 [address] RoadDublin [place] [id number] Chloride [Moles/Vol] 103 mmol/L Normal 97-108 Comp rehensive Internal Medicine Work Phone: Comment on above: PATIENT WAS FASTINGP ERFORMED BY: CB [facility] Wkjouv11[address] Roadblin [place] [id number] CO2 [Moles/Vol] 22 mmol/L Normal 19-28 [facility] Internal Medicine Work Phone: Comment on above: PATIENT WAS FASTINGP ERFORMED BY: CB [facility] Unrbue7640 [address] RoadCritical Access Hospitalin [place] [id number] Creatinine [Mass/Vol] 0.94 mg/dL Normal 0.76-1.27 [facility] Internal Medicine Work Phone: Comment on above: PATIENT WAS FASTINGP ERFORMED BY: CB [facility] Ufqjpb4993 [address] RoadCritical Access Hospitalin [place] [id number] GFR/1.73 sq M predicted among blacks CKD-EPI (S/P/Bld) [Vol rate/Area] 105 mL/min/1.73 Normal [facility] Work Phone: Comment on above: PATIENT WAS FASTINGP ERFORMED BY: [facility] Yrvoyt2619 [address] RoadCritical Access Hospitalin [place] [id number] GFR/1.73 sq M predicted among non-blacks CKD-EPI (S/P/Bld) [Vol rate/Area] 91 mL/min/1.73 Normal [facility] Work Phone: Comment on above: PATIENT WAS FASTINGP ERFORMED BY: CB [facility] Bvomza3303 [address] RoadCritical Access Hospitalin [place] [id number] Globulin (S) [Mass/Vol] 2.1 g/dL Normal 1.5-4.5 [facility] Work Phone: Comment on above: PATIENT WAS FASTINGP ERFORMED BY: CB [facility] Asntff4387 [address] RoadDublin [place] [id number] Glucose [Mass/Vol] 107 mg/dL Abnormal 65-99 [facility] Internal Medicine Work Phone: Comment on above: PATIENT WAS FASTINGP ERFORMED BY: JAMA LabRoger JiménezNrprmg2739 [address] RoadDublin [place] [id number] Potassium [Moles/Vol] 4.4 mmol/L Normal 3.5-5.2 [facility] Internal Medicine Work Phone: Comment on above: PATIENT WAS FASTINGP ERFORMED BY: JAMA [facility] Ggnlzr3795 [address] RoadDublin [place] [id number] Protein [Mass/Vol] 6.6 g/dL Normal 6.0-8.5 [facility] Internal Medicine Work Phone: Comment on above: PATIENT WAS FASTINGP ERFORMED BY: JAMA LabRoger JiménezHpuehc2832 [address] Roadblin [place] [id number] Sodium [Moles/Vol] 138 mmol/L Normal 134-144 [facility] Internal Medicine Work Phone: Comment on above: PATIENT WAS FASTINGP ERFORMED BY: JAMA [facility] Zffhps9968 Jimen[address] Roadblin [place] [id number] Urea nitrogen [Mass/Vol] 17 mg/dL Normal 6-24 [facility] Internal Medicine Work Phone: Comment on above: PATIENT WAS FASTINGP ERFORMED BY: JAMA [facility] Qqtzmx5[address] Roadblin [place] [id number] Urea nitrogen/Creatinine [Mass ratio] 18 mg/mg Normal 9-20 [facility] Internal Medicine Work Phone: Comment on above: PATIENT WAS FASTINGP ERFORMED BY: JAMA [facility] Vmzidr[address] [facility]cl[facility] OaklandDublin [place] [id number] MICROALBUMINOrdered By: Syst em Dye Range Feeder on 06-24-2013 Albumin DL <= 20 mg/L (U) [Mass/Vol] 7.2 ug/mL Normal 0.0-17.0 [facility] Internal Medicine Work Phone: Comment on above: PATIENT WAS FASTINGP ERFORMED BY: JAMA [facility] Xuning3381 [address] RoadDublin [place] [id number] Albumin/Creatinine (U) [Mass ratio] 6.9 {mg/g_creat} Normal 0.0-30.0 [facility] Work Phone: Comment on above: PATIENT WAS FASTINGP ERFORMED BY: Universal RoboticsPresbyterian Santa Fe Medical CenterCqexdh5380 [facility] [id number] Creatinine (U) [Mass/Vol] 104.5 mg/dL Normal 22.0-328.0 [facility] Work Phone: Comment on above: PATIENT WAS FASTINGP ERFORMED BY: [employer] Guapei1264 [facility] [id number] PSA (PROSTATE SPECIFIC ANTIG EN) (V76.44)Ordered By: Manager [employer] on 06-24-2013 Prostate specific Ag [Mass/Vol] 1.7 ng/mL Normal 0.0-4.0 [facility] Work Phone: Comment on above: Steve ECLIA methodol ogy. .According to the [place] [employer], Serum PSA shoulddecrease and remain [...] dx screening; PATIEN T WAS FASTINGPERFORMED BY: [employer] Natebd6334 [facility] [id number] TSH (09702)Ordered By: [employer] m Dye Range Feeder on 06-24-2013 TSH Qn 1.230 {uIU/mL} Normal 0.450-4.50 0 [facility] Work Phone: Comment on above: PATIENT WAS FASTINGP ERFORMED BY: Universal RoboticsPresbyterian Santa Fe Medical CenterOsjyfp5956 [facility] [id number] URINALYSIS, W/ MICRO ([id number]) Ordered By: Manager [employer] on 06-24-2013 Appearance (U) Clear Normal Comprehens johann Internal Medicine Work Phone: Comment on above: PATIENT WAS FASTINGP ERFORMED BY: JAMA LabRoger Aefesx8573 [address] RoadDublin [place] [id number] Bilirubin Ql (U) Negative Normal Comprehe nsive Internal Medicine Work Phone: Comment on above: PATIENT WAS FASTINGP ERFORMED BY: JAMA Dylanthania JiménezEmouvd0939 [address] RoadDublin [place] [id number] Color (U) Yellow Normal [facility] Work Phone: Comment on above: PATIENT WAS FASTINGP ERFORMED BY: JAMA LabAdarshthania JiménezCylrjv9387 [address] RoadDublin [place] [id number] Glucose Ql (U) Negative Normal Comprehens johann [facility] Medicine Work Phone: Comment on above: PATIENT WAS FASTINGP ERFORMED BY: JAMA RadhaRoger JiménezXisycz2191 [address] RoadDublin [place] [id number] Hemoglobin Ql (U) Negative Normal Compreh ensive [facility] Medicine Work Phone: Comment on above: PATIENT WAS FASTINGP ERFORMED BY: JAMA Dylanthania JiménezRvgdmf8836 [address] RoadDublin [place] [id number] Ketones Ql (U) Negative Normal Comprehens johann [facility] Work Phone: Comment on above: PATIENT WAS FASTINGP ERFORMED BY: JAMA Jiménezlin6[address] RoadDublin [place] [id number] Leukocyte esterase Test strip Ql (U) Negative Normal [facility] Work Phone: Comment on above: PATIENT WAS FASTINGP ERFORMED BY: JAMA Jiménezlin6[address] RoadDublin [place] [id number] Microscopic observation LM Nom (Urine sed) See below: Normal [facility] Work Phone: Comment on above: PATIENT WAS FASTINGP ERFORMED BY: JAMA [facility] Vuuufi1697 [address] RoadDublin [place] [id number] Microscopic observation LM Nom (Urine sed) MICRON Normal [facility] Work Phone: Comment on above: Microscopic follows if indicated. PATIENT WAS FASTINGP ERFORMED BY: JAMA [facility] Yoecba0933 [address] RoadDublin [place] [id number] Nitrite Ql (U) Negative Normal Comprehens johann Internal Medicine Work Phone: Comment on above: PATIENT WAS FASTINGP ERFORMED BY: LabCorewell [facility]6370 [facility] [id number] pH (U) 5.5 [pH] Normal 5.0-7.5 [facility] Work Phone: Comment on above: PATIENT WAS FASTINGP ERFORMED BY: LabCoInspira Medical Center VinelandUefpof7266 [facility] [id number] Protein Ql (U) Negative Normal Comprehens johann Internal Medicine Work Phone: Comment on above: PATIENT WAS FASTINGP ERFORMED BY: LabCorewell [facility] Hospital6[address] [facility] [id number] Specific gravity (U) [Rel density] 1.018 1 Normal 1.005-1.03 0 [facility] Work Phone: Comment on above: PATIENT WAS FASTINGP ERFORMED BY: LabCorewell [facility] Hospital6370 [facility] [id number] Urobilinogen Test strip (U) [Mass/Vol] 0.2 mg/dL Normal 0.0-1.9 Comprehensi Internal Medicine Work Phone: Comment on above: PATIENT WAS FASTINGP ERFORMED BY: LabCorewell [facility]6370 [facility] [id number] HgA1C , Office ([id number])Ordere d By: Marycarmen Robles on 06-11-2013 HbA1c (Bld) [Mass fraction] 5.8 % Normal 4.6 - 7.1 [facility] Work Phone: Blood Glucose , Office ([phone])Ordered By: Yudith Vaz on 07-08-2012 Glucose Glucometer (BldC) [Moles/Vol] 142 1 Normal [facility] Work Phone: HgA1C , Office ([phone])Ordere d By: Yudith Vaz on 07-08-2012 HbA1c (Bld) [Mass fraction] 5.7 % Normal 4.6 - 7.1 [facility] Work Phone: CBC WITH MANUAL DIFF ([id number]) Ordered By: Manager [employer] on 06-28-2012 Basophils (Bld) [#/Vol] 0.0 {x10E3/uL} Normal 0.0-0.2 [facility] Work Phone: Comment on above: PATIENT WAS FASTINGP ERFORMED BY: LabCo [address]vazt[address] [facility]in [place] [id number] Information: [id number] Basophils/100 WBC (Bld) 0 % Normal 0-3 [facility] Work Phone: Comment on above: PATIENT WAS FASTINGP ERFORMED BY: LabCo Wtsyrj[address] [facility] [id number] Information: [id number] Eosinophils (Bld) [#/Vol] 0.3 {x10E3/uL} Normal 0.0-0.4 [facility] Work Phone: Comment on above: PATIENT WAS FASTINGP ERFORMED BY: LabCo Bqbmmo[address] [facility] [id number] Information: [id number],[id number] Eosinophils/100 WBC (Bld) 3 % Normal 0-7 [facility] Work Phone: Comment on above: PATIENT WAS FASTINGP ERFORMED BY: LabCoPresbyterian Santa Fe Medical CenterJqkctk2731 [facility] [id number] Information: 406297,[id number] Erythrocyte distribution width (RBC) [Ratio] 13.3 % Normal 12.3-15.4 [facility] Work Phone: Comment on above: PATIENT WAS FASTINGP ERFORMED BY: [facility] Iiunto[address] [facility] [id number] Information: [id number] Hematocrit (Bld) [Volume fraction] 43.2 % Normal 37.5-51.0 [facility] Work Phone: Comment on above: PATIENT WAS FASTINGP ERFORMED BY: [facility] Vexghj[address] [facility] [id number] Information: [id number],[id number] Hemoglobin (Bld) [Mass/Vol] 14.3 g/dL Normal 12.6-17.7 [facility] Work Phone: Comment on above: PATIENT WAS FASTINGP ERFORMED BY: [place] [id number] [facility] [id number] Information: [id number],[id number] Immature granulocytes (Bld) [#/Vol] 0.0 {x10E3/uL} Normal 0.0-0.1 [facility] Work Phone: Comment on above: PATIENT WAS FASTINGP ERFORMED BY: [place] [id number] [facility] [id number] Information: [id number] Immature granulocytes/100 WBC (Bld) 0 % Normal 0-2 [facility] Work Phone: Comment on above: PATIENT WAS FASTINGP ERFORMED BY: [facility]6370 [facility] [id number] Information: [id number] Lymphocytes (Bld) [#/Vol] 2.9 {x10E3/uL} Normal 0.7-4.5 [facility] Work Phone: Comment on above: PATIENT WAS FASTINGP ERFORMED BY: [facility]6370 [facility] [id number] Information: [id number] Lymphocytes/100 WBC (Bld) 38 % Normal 14-46 [facility] Work Phone: Comment on above: PATIENT WAS FASTINGP ERFORMED BY: [place] [id number] [facility] [id number] Information: [id number] MCH (RBC) [Entitic mass] 29.4 pg Normal 26.6-33.0 [facility] Work Phone: Comment on above: PATIENT WAS FASTINGP ERFORMED BY: [address] [id number] Information: [id number] MCHC (RBC) [Mass/Vol] 33.1 g/dL Normal 31.5-35.7 [facility] Internal Medicine Work Phone: Comment on above: PATIENT WAS FASTINGP ERFORMED BY: JAMA [place] [id number] [facility] [id number] Information: [id number],[id number] MCV (RBC) [Entitic vol] 89 fL Normal 79-97 [facility] Work Phone: Comment on above: PATIENT WAS FASTINGP ERFORMED BY: [address] [id number] Information: [id number] Monocytes (Bld) [#/Vol] 0.7 {x10E3/uL} Normal 0.1-1.0 [facility] Work Phone: Comment on above: PATIENT WAS FASTINGP ERFORMED BY: [place] [id number] [facility] [id number] Information: [id number] Monocytes/100 WBC (Bld) 9 % Normal 4-13 [facility] Work Phone: Comment on above: PATIENT WAS FASTINGP ERFORMED BY: [address] [id number] Information: [id number] Neutrophils (Bld) [#/Vol] 3.7 {x10E3/uL} Normal 1.8-7.8 [facility] Work Phone: Comment on above: PATIENT WAS FASTINGP ERFORMED BY: [facility]6370 [facility] [id number] Information: 563415,[id number] Neutrophils/100 WBC (Bld) 50 % Normal 40-74 [facility] Work Phone: Comment on above: PATIENT WAS FASTINGP ERFORMED BY: [place] [id number] [facility] [id number] Information: [id number] Platelets (Bld) [#/Vol] 206 {x10E3/uL} Normal 140-415 [facility] Work Phone: Comment on above: PATIENT WAS FASTINGP ERFORMED BY: JAMA Ngoueira6370 [facility] [id number] Information: [id number] RBC (Bld) [#/Vol] 4.86 {x10E6/uL} Normal 4.14-5.[address] [facility] Internal Medicine Work Phone: Comment on above: PATIENT WAS FASTINGP ERFORMED BY: JAMA [facility] Oyqshm6[address] [facility] [id number] Information: [id number],[id number] WBC (Bld) [#/Vol] 7.5 {x10E3/uL} Normal 4.0-10.5 [facility] Internal Medicine Work Phone: Comment on above: PATIENT WAS FASTINGP ERFORMED BY: JAMA [facility] Mwoavq3103 [facility] [id number] Information: [id number] LIPID PANEL ([id number])Ordered B y: Manager [employer] on 06-28-2012 Cholesterol [Mass/Vol] 153 mg/dL Normal 100-199 [facility] Work Phone: Comment on above: PATIENT WAS FASTINGP ERFORMED BY: JAMA [facility] Dbqldx3395 [facility] [id number] Cholesterol in HDL [Mass/Vol] 48 mg/dL Normal [facility] Work Phone: Comment on above: According to ATP-III Guidelines, HDL-C >59 mg/dL is considered anegative risk factor for CHD. PATIENT WAS FASTINGP ERFORMED BY: JAMA [facility] Fmbsyv7903 [address] [facility] [id number] Cholesterol in LDL [Mass/Vol] 85 mg/dL Normal 0-99 [facility] Work Phone: Comment on above: PATIENT WAS FASTINGP ERFORMED BY: [facility] Gcpexy9419 [address] [facility] [id number] Cholesterol in LDL/Cholesterol in HDL [Mass ratio] 1.8 {ratio_units} Normal 0.0-3.6 [facility] Work Phone: Comment on above: PATIENT WAS FASTINGP ERFORMED BY: JAMA LabRoger JiménezJlqjim5428 Jimenez RoadDublin [place] [id number] Cholesterol in VLDL [Mass/Vol] 20 mg/dL Normal 5-40 [facility] Work Phone: Comment on above: PATIENT WAS FASTINGP ERFORMED BY: JAMA LabRoger JiménezZfolpz4077 [address] [facility] [id number] Triglyceride [Mass/Vol] 98 mg/dL Normal 0-149 [facility] Work Phone: Comment on above: PATIENT WAS FASTINGP ERFORMED BY: JAMA Jiménezlin6370 [address] [facility] [id number] METABOLIC PANEL, COMPREHENSI VE ([id number])Ordered By: Manager [employer] on 06-28-2012 Albumin [Mass/Vol] 4.9 g/dL Normal 3.5-5.5 [facility] Internal Medicine Work Phone: Comment on above: PATIENT WAS FASTINGP ERFORMED BY: JAMA Jiménezlin[address] [facility] [place] [id number] Albumin/Globulin [Mass ratio] 2.1 {ratio} Normal 1.1-2.5 [facility] Work Phone: Comment on above: PATIENT WAS FASTINGP ERFORMED BY: JAMA LabAdarsh Osfboj94[address] [facility] [place] [id number] ALP [Catalytic activity/Vol] 54 [iU]/L Normal 25-150 [facility] Work Phone: Comment on above: PATIENT WAS FASTINGP ERFORMED BY: JAMA LabCothania JiménezZelzzf3915 [address] [facility] [place] [id number] ALT [Catalytic activity/Vol] 31 [iU]/L Normal 0-44 [facility] Work Phone: Comment on above: PATIENT WAS FASTINGP ERFORMED BY: JAMA [facility] Qbyugc7636 [address] RoadDublin [place] [id number] AST [Catalytic activity/Vol] 25 [iU]/L Normal 0-40 [facility] Internal Medicine Work Phone: Comment on above: PATIENT WAS FASTINGP ERFORMED BY: JAMA [facility] Gprgyt3193 [address]enez RoadDublin [place] [id number] Bilirubin [Mass/Vol] 0.8 mg/dL Normal 0.0-1.2 [facility] Work Phone: Comment on above: PATIENT WAS FASTINGP ERFORMED BY: Lab[facility] Oxgfuo6197 [address] RoadDublin [place] [id number] Calcium [Mass/Vol] 9.7 mg/dL Normal 8.7-10.2 [facility] Internal Medicine Work Phone: Comment on above: PATIENT WAS FASTINGP ERFORMED BY: JAMA LabCox South Sycupp7508 Jimenez RoadDuin [place] [id number] Chloride [Moles/Vol] 102 mmol/L Normal 97-108 [facility] Internal Medicine Work Phone: Comment on above: PATIENT WAS FASTINGP ERFORMED BY: [facility] Uysbco4789 [address] RoadDublin [place] [id number] CO2 [Moles/Vol] 23 mmol/L Normal 20-32 [facility] Internal Medicine Work Phone: Comment on above: PATIENT WAS FASTINGP ERFORMED BY: [facility] Jorpvv8371 [address] RoadDublin [place] [id number] Creatinine [Mass/Vol] 1.05 mg/dL Normal 0.76-1.27 [facility] Internal Medicine Work Phone: Comment on above: PATIENT WAS FASTINGP ERFORMED BY: [facility] Dgowxj3179 [address] RoadDublin [place] [id number] GFR/1.73 sq M predicted among blacks CKD-EPI (S/P/Bld) [Vol rate/Area] 93 mL/min/1.73 Normal [facility] Internal Medicine Work Phone: Comment on above: PATIENT WAS FASTINGP ERFORMED BY: [facility] Hufjvu0348 [address] RoadDublin [place] [id number] GFR/1.73 sq M predicted among non-blacks CKD-EPI (S/P/Bld) [Vol rate/Area] 80 mL/min/1.73 Normal [facility] Internal Medicine Work Phone: Comment on above: PATIENT WAS FASTINGP ERFORMED BY: JAMA LabRoger JiménezTsdwli2951 [facility] [id number] Globulin (S) [Mass/Vol] 2.3 g/dL Normal 1.5-4.5 [facility] Internal Medicine Work Phone: Comment on above: PATIENT WAS FASTINGP ERFORMED BY: JAMA [facility] Lxyoah5050 [address] [facility] [id number] Glucose [Mass/Vol] 100 mg/dL Abnormal 65-99 [facility] Internal Medicine Work Phone: Comment on above: PATIENT WAS FASTINGP ERFORMED BY: JAMA GarciaCox South Vecjtz7312 [facility] [id number] Potassium [Moles/Vol] 4.0 mmol/L Normal 3.5-5.2 [facility] Internal Medicine Work Phone: Comment on above: PATIENT WAS FASTINGP ERFORMED BY: JAMA Richardson Nthfbd7889 [facility] [id number] Protein [Mass/Vol] 7.2 g/dL Normal 6.0-8.5 [facility] Internal Medicine Work Phone: Comment on above: PATIENT WAS FASTINGP ERFORMED BY: JAMA [facility] Nnzivr2186 [address] [facility] [id number] Sodium [Moles/Vol] 137 mmol/L Normal 134-144 [facility] Internal Medicine Work Phone: Comment on above: PATIENT WAS FASTINGP ERFORMED BY: JAMA [facility] Orahuf2895 [address] [facility] [id number] Urea nitrogen [Mass/Vol] 17 mg/dL Normal 6-24 [facility] Internal Medicine Work Phone: Comment on above: PATIENT WAS FASTINGP ERFORMED BY: JAMA [facility] Hvhskb6759 [address] [facility] [id number] Urea nitrogen/Creatinine [Mass ratio] 16 mg/mg Normal 9-20 [facility] Work Phone: Comment on above: PATIENT WAS FASTINGP ERFORMED BY: JAMA Jiménezlin[address] [facility] [place] [id number] MICROALBUMINOrdered By: Syst em Dye Range Feeder on 06-28-2012 Albumin DL <= 20 mg/L (U) [Mass/Vol] 5.8 ug/mL Normal 0.0-17.0 [facility] Work Phone: Comment on above: PATIENT WAS FASTINGP ERFORMED BY: JAMA Jiménezlin6370 [facility] [id number] Albumin/Creatinine (U) [Mass ratio] 4.0 {mg/g_creat} Normal 0.0-30.0 [facility] Work Phone: Comment on above: PATIENT WAS FASTINGP ERFORMED BY: JAMA Jiménezlin6370 [facility] [id number] Creatinine (U) [Mass/Vol] 143.7 mg/dL Normal 22.0-328.0 [facility] Work Phone: Comment on above: PATIENT WAS FASTINGP ERFORMED BY: JAMA Jiménezlin6370 [facility] [id number] TSH (85445)Ordered By: Telensiuse Dye Range Feeder on 06-28-2012 TSH Qn 1.580 {uIU/mL} Normal 0.450-4.50 0 [facility] Work Phone: Comment on above: PATIENT WAS FASTINGP ERFORMED BY: JAMA LabRoger JiménezJspilc4515 [facility] [id number] URINALYSIS, W/ MICRO ([id number]) Ordered By: Manager [employer] on 06-28-2012 Appearance (U) Clear Normal Comprehens johann Internal Medicine Work Phone: Comment on above: PATIENT WAS FASTINGP ERFORMED BY: JAMA LabAdarsh Zmaazr8[address] [facility] [id number] Bilirubin Ql (U) Negative Normal Comprehe nsive Internal Medicine Work Phone: Comment on above: PATIENT WAS FASTINGP ERFORMED BY: JAMA LabAdarshrp Yudczr1745 [address] RoadDublin [place] [id number] Color (U) Yellow Normal [facility] Work Phone: Comment on above: PATIENT WAS FASTINGP ERFORMED BY: JAMA LabRoger JiménezHsavfr1486 [address] RoadDublin [place] [id number] Glucose Ql (U) Negative Normal Comprehens johann Internal Medicine Work Phone: Comment on above: PATIENT WAS FASTINGP ERFORMED BY: JAMA LabCothania JiménezZhwxiu4486 [address] RoadDublin [place] [id number] Hemoglobin Ql (U) Negative Normal Compreh ensive Internal Medicine Work Phone: Comment on above: PATIENT WAS FASTINGP ERFORMED BY: JAMA Jiménezlin6370 [address] RoadDublin [place] [id number] Ketones Ql (U) Negative Normal Comprehens johnan Internal Medicine Work Phone: Comment on above: PATIENT WAS FASTINGP ERFORMED BY: JAMA Jiménezlin6370 [address] RoadDublin [place] [id number] Leukocyte esterase Test strip Ql (U) Negative Normal [facility] Work Phone: Comment on above: PATIENT WAS FASTINGP ERFORMED BY: JAMA Nogueira6370 [address] RoadDublin [place] [id number] Microscopic observation LM Nom (Urine sed) See below: Normal [facility] Work Phone: Comment on above: PATIENT WAS FASTINGP ERFORMED BY: JAMA [facility] Tchavl6607 [address] RoadDublin [place] [id number] Microscopic observation LM Nom (Urine sed) MICRON Normal [facility] Work Phone: Comment on above: Microscopic follows if indicated. PATIENT WAS FASTINGP ERFORMED BY: JAMA [facility] Ysoxjf7859 [address]enez RoadDublin [place] [id number] Nitrite Ql (U) Negative Normal Comprehens johann Internal Medicine Work Phone: Comment on above: PATIENT WAS FASTINGP ERFORMED BY: JAMA Jiménezlin6370 [facility] [id number] pH (U) 5.5 [pH] Normal 5.0-7.5 [facility] Internal Medicine Work Phone: Comment on above: PATIENT WAS FASTINGP ERFORMED BY: [facility]6370 [facility] [id number] Protein Ql (U) Negative Normal Comprehens johann Internal Medicine Work Phone: Comment on above: PATIENT WAS FASTINGP ERFORMED BY: [facility]6370 [facility] [id number] Specific gravity (U) [Rel density] 1.019 1 Normal 1.005-1.03 0 [facility] Internal Medicine Work Phone: Comment on above: PATIENT WAS FASTINGP ERFORMED BY: JAMA [facility]6370 [facility] [id number] Urobilinogen Test strip (U) [Mass/Vol] 0.2 mg/dL Normal 0.0-1.9 [facility] [[email or web address]] Internal Medicine Work Phone: Comment on above: PATIENT WAS FASTINGP ERFORMED BY: [facility]6370 [facility] [id number] Blood Glucose , Office ([phone])on 01-08-2012 Glucose Glucometer (BldC) [Moles/Vol] 88 1 Normal [facility] Internal Medicine Work Phone: HgA1C , Office ([phone])on HbA1c (Bld) [Mass fraction] 5.8 % Normal 4.6 - 7.1 [facility] Internal Medicine Work Phone: Hemoglobin Glyclated (HGB A1 C) (18570)Ordered By: Manager [employer] on 09-06-2011 HbA1c (Bld) [Mass fraction] 5.9 % Abnormal 4.8-5.6 [facility] Internal Medicine Work Phone: Comment on above: . Increased risk for diabetes: 5.7 - 6.4 Diabetes: >6.4 Glycemic control for adults with diabetes: <7.0 PATIENT NOT FASTINGP ERFORMED BY: [place] [id number] [facility] [id number] Information: ADD [id number] AND DRAW FEE [phone] CBC WITH MANUAL DIFF (45006) Ordered By: Manager [employer] on 08-28-2011 Basophils (Bld) [#/Vol] 0.0 {x10E3/uL} Normal 0.0-0.2 [facility] Work Phone: Comment on above: PATIENT WAS FASTINGP ERFORMED BY: [address] [id number] Information: [id number] Basophils/100 WBC (Bld) 1 % Normal 0-3 [facility] Work Phone: Comment on above: PATIENT WAS FASTINGP ERFORMED BY: [address] [id number] Information: 210002,[id number] Eosinophils (Bld) [#/Vol] 0.2 {x10E3/uL} Normal 0.0-0.4 [facility] Work Phone: Comment on above: PATIENT WAS FASTINGP ERFORMED BY: [address] [id number] Information: 535609,P74404 Eosinophils/100 WBC (Bld) 2 % Normal 0-7 [facility] Work Phone: Comment on above: PATIENT WAS FASTINGP ERFORMED BY: [address] [id number] Information: 351109,[id number] Erythrocyte distribution width (RBC) [Ratio] 12.8 % Normal 12.3-15.4 [facility] Work Phone: Comment on above: PATIENT WAS FASTINGP ERFORMED BY: [place] [id number] [facility] [id number] Information: 962596,U01324 Hematocrit (Bld) [Volume fraction] 41.4 % Normal 37.5-51.0 [facility] Work Phone: Comment on above: PATIENT WAS FASTINGP ERFORMED BY: [place] [id number] [facility] [id number] Information: 067185,[id number] Hemoglobin (Bld) [Mass/Vol] 14.7 g/dL Normal 12.6-17.7 [facility] Work Phone: Comment on above: PATIENT WAS FASTINGP ERFORMED BY: [address] [id number] Information: 026232,[id number] Immature granulocytes (Bld) [#/Vol] 0.0 {x10E3/uL} Normal 0.0-0.1 [facility] Work Phone: Comment on above: PATIENT WAS FASTINGP ERFORMED BY: [address] [id number] Information: 989885,U74937 Immature granulocytes/100 WBC (Bld) 0 % Normal 0-2 [facility] Work Phone: Comment on above: PATIENT WAS FASTINGP ERFORMED BY: [address] [id number] Information: [id number],[id number] Lymphocytes (Bld) [#/Vol] 2.2 {x10E3/uL} Normal 0.7-4.5 [facility] Work Phone: Comment on above: PATIENT WAS FASTINGP ERFORMED BY: [address] [id number] Information: 499340,[id number] Lymphocytes/100 WBC (Bld) 26 % Normal 14-46 [facility] Work Phone: Comment on above: PATIENT WAS FASTINGP ERFORMED BY: [address] [id number] Information: 001032,U28096 MCH (RBC) [Entitic mass] 30.8 pg Normal 26.6-33.0 [facility] Work Phone: Comment on above: PATIENT WAS FASTINGP ERFORMED BY: JAMA [facility]Core[facility]6370 [facility] [id number] Information: 217759,[id number] MCHC (RBC) [Mass/Vol] 35.5 g/dL Normal 31.5-35.7 [facility] Internal Medicine Work Phone: Comment on above: PATIENT WAS FASTINGP ERFORMED BY: JAMA [address] [id number] Information: 194991,[id number] MCV (RBC) [Entitic vol] 87 fL Normal 79-97 [facility] Internal Medicine Work Phone: Comment on above: PATIENT WAS FASTINGP ERFORMED BY: JAMA [address] [id number] Information: [id number],[id number] Monocytes (Bld) [#/Vol] 0.7 {x10E3/uL} Normal 0.1-1.0 [facility] Internal Medicine Work Phone: Comment on above: PATIENT WAS FASTINGP ERFORMED BY: JAMA RadhaMary Ville 7471470 [facility] [id number] Information: [id number],[id number] Monocytes/100 WBC (Bld) 9 % Normal 4-13 [facility] Work Phone: Comment on above: PATIENT WAS FASTINGP ERFORMED BY: JAMA [place] 4409870 [facility] [id number] Information: 885355,K18176 Neutrophils (Bld) [#/Vol] 5.1 {x10E3/uL} Normal 1.8-7.8 [facility] Work Phone: Comment on above: PATIENT WAS FASTINGP ERFORMED BY: JAMA [place] [id number] [facility] [id number] Information: 253036,M51469 Neutrophils/100 WBC (Bld) 62 % Normal 40-74 [facility] Work Phone: Comment on above: PATIENT WAS FASTINGP ERFORMED BY: CB [place] 4409870 [facility] [id number] Information: 488457,[id number] Platelets (Bld) [#/Vol] 214 {x10E3/uL} Normal 140-415 [facility] Work Phone: Comment on above: PATIENT WAS FASTINGP ERFORMED BY: JAMA [facility]Cox South Yomsap9872 [facility] [id number] Information: 318057,[id number] RBC (Bld) [#/Vol] 4.78 {x10E6/uL} Normal 4.14-5.[address] [facility] Internal Medicine Work Phone: Comment on above: PATIENT WAS FASTINGP ERFORMED BY: JAMA Richardson Pksmry2498 [facility] [id number] Information: 979608,M13606 WBC (Bld) [#/Vol] 8.2 {x10E3/uL} Normal 4.0-10.5 [facility] Internal Medicine Work Phone: Comment on above: PATIENT WAS FASTINGP ERFORMED BY: RadhaCox South Byqjcx6317 [facility] [id number] Information: [id number],[id number] LIPID PANEL (30876)Ordered B y: Manager [employer] on 08-28-2011 Cholesterol [Mass/Vol] 171 mg/dL Normal 100-199 [facility] Work Phone: Comment on above: PATIENT WAS FASTINGP ERFORMED BY: RadhaC[facility] South Wqtaha3473 [facility] [id number] Cholesterol in HDL [Mass/Vol] 54 mg/dL Normal [facility] Work Phone: Comment on above: According to ATP-III Guidelines, HDL-C >59 mg/dL is considered anegative risk factor for CHD. PATIENT WAS FASTINGP ERFORMED BY: [facility] Oegxtw9557 [facility] [id number] Cholesterol in LDL [Mass/Vol] 97 mg/dL Normal 0-99 [facility] Work Phone: Comment on above: PATIENT WAS FASTINGP ERFORMED BY: CB [facility] Jexgzb1754 [address] RoadDublin [place] [id number] Cholesterol in LDL/Cholesterol in HDL [Mass ratio] 1.8 {ratio_units} Normal 0.0-3.6 [facility] Work Phone: Comment on above: PATIENT WAS FASTINGP ERFORMED BY: CB [facility] Altjry3520 [address] RoadDublin [place] [id number] Cholesterol in VLDL [Mass/Vol] 20 mg/dL Normal 5-40 [facility] Work Phone: Comment on above: PATIENT WAS FASTINGP ERFORMED BY: CB [facility] Qrmtay5725 [address] RoadDublin [place] [id number] Triglyceride [Mass/Vol] 99 mg/dL Normal 0-149 [facility] Work Phone: Comment on above: PATIENT WAS FASTINGP ERFORMED BY: CB [facility] Jevlva4038 [address] RoadDublin [place] [id number] METABOLIC PANEL, COMPREHENSI VE (80166)Ordered By: Manager Managed [employer] on 08-28-2011 Albumin [Mass/Vol] 4.9 g/dL Normal 3.5-5.5 [facility] Internal Medicine Work Phone: Comment on above: PATIENT WAS FASTINGP ERFORMED BY: CB [facility] Ukjxpz3832 [address] RoadDublin [place] [id number] Albumin/Globulin [Mass ratio] 2.1 {ratio} Normal 1.1-2.5 [facility] Work Phone: Comment on above: PATIENT WAS FASTINGP ERFORMED BY: CB [facility] Yndzxc1160 [address] RoadDublin [place] [id number] ALP [Catalytic activity/Vol] 55 [iU]/L Normal 25-150 [facility] Work Phone: Comment on above: PATIENT WAS FASTINGP ERFORMED BY: CB [facility] Raieho8380 [address] RoadDublin [place] [id number] ALT [Catalytic activity/Vol] 28 [iU]/L Normal 0-55 [facility] Work Phone: Comment on above: PATIENT WAS FASTINGP ERFORMED BY: JAMA [facility] Guvazj0957 [address] RoadDublin [place] [id number] AST [Catalytic activity/Vol] 25 [iU]/L Normal 0-40 [facility] Internal Medicine Work Phone: Comment on above: PATIENT WAS FASTINGP ERFORMED BY: JAMA [facility] Zyvsgt7787 [address] RoadDublin [place] [id number] Bilirubin [Mass/Vol] 0.5 mg/dL Normal 0.0-1.2 [facility] Work Phone: Comment on above: PATIENT WAS FASTINGP ERFORMED BY: [facility] Cdzsvg6562 [address] RoadDublin [place] [id number] Calcium [Mass/Vol] 10.0 mg/dL Normal 8.7-10.2 [facility] Internal Medicine Work Phone: Comment on above: PATIENT WAS FASTINGP ERFORMED BY: [facility] Jbhdsb2321 [address] RoadDublin [place] [id number] Chloride [Moles/Vol] 105 mmol/L Normal 97-108 [facility] Work Phone: Comment on above: PATIENT WAS FASTINGP ERFORMED BY: [facility] Xrkrms9619 [address] RoadDublin [place] [id number] CO2 [Moles/Vol] 20 mmol/L Normal 20-32 [facility] Internal Medicine Work Phone: Comment on above: PATIENT WAS FASTINGP ERFORMED BY: [facility] Vpclhc7771 [address] RoadDublin [place] [id number] Creatinine [Mass/Vol] 1.03 mg/dL Normal 0.76-1.27 [facility] Internal Medicine Work Phone: Comment on above: PATIENT WAS FASTINGP ERFORMED BY: [facility] Owghvg4375 [address] RoadDublin [place] [id number] GFR/1.73 sq M predicted among blacks CKD-EPI (S/P/Bld) [Vol rate/Area] 95 mL/min/1.73 Normal [facility] Internal Medicine Work Phone: Comment on above: PATIENT WAS FASTINGP ERFORMED BY: [facility] Ccstng7[address] [facility] [place] [id number] GFR/1.73 sq M predicted among non-blacks CKD-EPI (S/P/Bld) [Vol rate/Area] 83 mL/min/1.73 Normal [facility] Internal Medicine Work Phone: Comment on above: PATIENT WAS FASTINGP ERFORMED BY: [facility] Lqpuyf4671 [address] [facility] [id number] Globulin (S) [Mass/Vol] 2.3 g/dL Normal 1.5-4.5 [facility] Internal Medicine Work Phone: Comment on above: PATIENT WAS FASTINGP ERFORMED BY: [facility] Budshz4548 [facility] [id number] Glucose [Mass/Vol] 103 mg/dL Abnormal 65-99 [facility] Internal Medicine Work Phone: Comment on above: PATIENT WAS FASTINGP ERFORMED BY: [facility]6[address] [facility] [place] [id number] Potassium [Moles/Vol] 4.2 mmol/L Normal 3.5-5.2 [facility] Internal Medicine Work Phone: Comment on above: PATIENT WAS FASTINGP ERFORMED BY: [facility]6[address] [facility] [place] [id number] Protein [Mass/Vol] 7.2 g/dL Normal 6.0-8.5 [facility] Internal Medicine Work Phone: Comment on above: PATIENT WAS FASTINGP ERFORMED BY: [facility] Gthakj[address] [facility] [place] [id number] Sodium [Moles/Vol] 139 mmol/L Normal 134-144 [facility] Internal Medicine Work Phone: Comment on above: PATIENT WAS FASTINGP ERFORMED BY: [facility] [address] [facility]in [place] [id number] Urea nitrogen [Mass/Vol] 17 mg/dL Normal 6-24 [facility] Internal Medicine Work Phone: Comment on above: PATIENT WAS FASTINGP ERFORMED BY: [employer] Miitlh3612 [facility] [id number] Urea nitrogen/Creatinine [Mass ratio] 17 mg/mg Normal 9-20 [facility] Work Phone: Comment on above: PATIENT WAS FASTINGP ERFORMED BY: [facility] Wurqzs5434 [facility] [id number] MICROALBUMINOrdered By: Syst em Dye Range Feeder on 08-28-2011 Albumin DL <= 20 mg/L (U) [Mass/Vol] 7.5 ug/mL Normal 0.0-17.0 [facility] Work Phone: Comment on above: PATIENT WAS FASTINGP ERFORMED BY: [employer] Qsaajg8286 [facility] [id number] Albumin/Creatinine (U) [Mass ratio] 4.9 {mg/g_creat} Normal 0.0-30.0 [facility] Work Phone: Comment on above: PATIENT WAS FASTINGP ERFORMED BY: [employer] Mloltg3884 [facility] [id number] Creatinine (U) [Mass/Vol] 151.7 mg/dL Normal 22.0-328.0 [facility] Work Phone: Comment on above: PATIENT WAS FASTINGP ERFORMED BY: [employer] Vwfxwa8440 [facility] [id number] PSA (PROSTATE SPECIFIC ANTIG EN) (V76.44)Ordered By: Manager [employer] on 08-28-2011 Prostate specific Ag [Mass/Vol] 2.2 ng/mL Normal 0.0-4.0 [facility] Work Phone: Comment on above: Steve ECLIA methodol ogy. .According to the [place] [employer], Serum PSA shoulddecrease and remain [...] PATIENT WAS FASTINGP ERFORMED BY: JAMA LabAdarsh Rcmxwy4594 [address]enez RoadDublin [place] [id number] TSH (13229)Ordered By: Telensiuse m Dye Range Feeder on 08-28-2011 TSH Qn 1.360 {uIU/mL} Normal 0.450-4.50 0 [facility] Work Phone: Comment on above: PATIENT WAS FASTINGP ERFORMED BY: JAMA [facility] Vqqtnf7685 Jimenez RoadDublin [place] [id number] URINALYSIS, W/ MICRO ([id number]) Ordered By: Manager [employer] on 08-28-2011 Appearance (U) Clear Normal Comprehens johann Internal Medicine Work Phone: Comment on above: PATIENT WAS FASTINGP ERFORMED BY: JAMA LabAd[facility] Lxeuyl2019 [address] RoadDublin [place] [id number] Bilirubin Ql (U) Negative Normal Comprehe nsive Internal Medicine Work Phone: Comment on above: PATIENT WAS FASTINGP ERFORMED BY: JAMA [facility] Grkiej1323 [address]enez RoadDublin [place] [id number] Color (U) Yellow Normal [facility] Work Phone: Comment on above: PATIENT WAS FASTINGP ERFORMED BY: JAMA Dylanthania JiménezDzppvt2501 Jimenez RoadDublin [place] [id number] Glucose Ql (U) Negative Normal Comprehens johann Internal Medicine Work Phone: Comment on above: PATIENT WAS FASTINGP ERFORMED BY: JAMA [facility] Rouyxt7751 [address] RoadDublin [place] [id number] Hemoglobin Ql (U) Negative Normal Compreh ensive Internal Medicine Work Phone: Comment on above: PATIENT WAS FASTINGP ERFORMED BY: JAMA [facility] Jtydaa9412 [address] RoadDublin [place] [id number] Ketones Ql (U) Negative Normal Comprehens johann Internal Medicine Work Phone: Comment on above: PATIENT WAS FASTINGP ERFORMED BY: JAMA [facility] Ikzycc6083 [address] RoadDublin [place] [id number] Leukocyte esterase Test strip Ql (U) Negative Normal [facility] Work Phone: Comment on above: PATIENT WAS FASTINGP ERFORMED BY: JAMA Nogueira6[address] [facility] [id number] Microscopic observation LM Nom (Urine sed) See below: Normal [facility] Work Phone: Comment on above: PATIENT WAS FASTINGP ERFORMED BY: JAMA Sanchez70 [address] [facility] [id number] Microscopic observation LM Nom (Urine sed) MICRON Normal [facility] Work Phone: Comment on above: Microscopic follows if indicated. PATIENT WAS FASTINGP ERFORMED BY: JAMA Nogueira6370 [facility] [id number] Nitrite Ql (U) Negative Normal Comprehens johann Internal Medicine Work Phone: Comment on above: PATIENT WAS FASTINGP ERFORMED BY: JAMA Nogueira6370 [facility] [id number] pH (U) 5.0 [pH] Normal 5.0-7.5 [facility] Work Phone: Comment on above: PATIENT WAS FASTINGP ERFORMED BY: JAMA Nogueira6370 [facility] [id number] Protein Ql (U) Negative Normal Comprehens johann Internal Medicine Work Phone: Comment on above: PATIENT WAS FASTINGP ERFORMED BY: JAMA Nogueira6370 [facility] [id number] Specific gravity (U) [Rel density] 1.018 1 Normal 1.005-1.03 0 [facility] Work Phone: Comment on above: PATIENT WAS FASTINGP ERFORMED BY: JAMA Nogueira6370 [facility] [id number] Urobilinogen Test strip (U) [Mass/Vol] 0.2 mg/dL Normal 0.0-1.9 Comprehensi Internal Medicine Work Phone: Comment on above: PATIENT WAS FASTINGP ERFORMED BY: JAMA Jiménezlin6370 [facility] [id number] Blood Glucose , Office (3696 2)Ordered By: Yudith Vaz on 05-04-2011 Glucose Glucometer (BldC) [Moles/Vol] 85 1 Normal [facility] Work Phone: HgA1C , Office (09722)Ordere d By: Yudith Vaz on 05-04-2011 HbA1c (Bld) [Mass fraction] 5.8 % Normal 4.6 - 7.1 [facility] Work Phone: LIPID PANEL ([phone])Ordered B y: Manager [employer] on 10-03-2010 Cholesterol [Mass/Vol] 164 mg/dL Normal 100-199 [facility] Work Phone: Comment on above: PATIENT WAS FASTINGP ERFORMED BY: JAMA RadhaRoger Mmmvfs3335 [facility] [id number] Information: [id number]; appt 10/14/10 Cholesterol in HDL [Mass/Vol] 47 mg/dL Normal [facility] Work Phone: Comment on above: According to ATP-III Guidelines, HDL-C >59 mg/dL is considered anegative risk factor for CHD. PATIENT WAS FASTINGP ERFORMED BY: JAMA Jiménezlin6370 [facility] [id number] Information: [id number]; appt 10/14/10 Cholesterol in LDL [Mass/Vol] 93 mg/dL Normal 0-99 [facility] Work Phone: Comment on above: PATIENT WAS FASTINGP ERFORMED BY: JAMA [facility] Qzsnzx9079 [facility] [id number] Information: [id number]; appt 10/14/10 Cholesterol in LDL/Cholesterol in HDL [Mass ratio] 2.0 {ratio_units} Normal 0.0-3.6 [facility] Work Phone: Comment on above: PATIENT WAS FASTINGP ERFORMED BY: JAMA [facility] Ugamil8164 [facility] [id number] Information: [id number]; appt 10/14/10 Cholesterol in VLDL [Mass/Vol] 24 mg/dL Normal 5-40 [facility] Work Phone: Comment on above: PATIENT WAS FASTINGP ERFORMED BY: JAMA LabRoger Nogueira6370 [facility] [id number] Information: 074021,A11163; appt 10/14/10 Triglyceride [Mass/Vol] 120 mg/dL Normal 0-149 [facility] Work Phone: Comment on above: PATIENT WAS FASTINGP ERFORMED BY: JAMA [facility]CoInsp[facility] Center VinelandJwnyfp7291 [facility] [id number] Information: [id number],[id number]; appt 10/14/10 CBC WITH MANUAL DIFF (13995) Ordered By: Manager [employer] on 09-16-2010 Basophils (Bld) [#/Vol] 0.1 {x10E3/uL} Normal 0.0-0.2 [facility] Work Phone: Comment on above: PATIENT NOT FASTINGP ERFORMED BY: JAMA LabCo Tdwmur9890 [facility] [id number] Information: 062712,P00095 Basophils/100 WBC (Bld) 1 % Normal 0-3 [facility] Work Phone: Comment on above: PATIENT NOT FASTINGP ERFORMED BY: JAMA LabCoInspira Medical Center VinelandQaqzuj7397 [facility] [id number] Information: 244102,F42429 Eosinophils (Bld) [#/Vol] 0.4 {x10E3/uL} Normal 0.0-0.4 [facility] Work Phone: Comment on above: PATIENT NOT FASTINGP ERFORMED BY: JAMA LabCo Bkpdcx4911 [facility] [id number] Information: 073098,Y54693 Eosinophils/100 WBC (Bld) 5 % Normal 0-7 [facility] Work Phone: Comment on above: PATIENT NOT FASTINGP ERFORMED BY: CB LabCo Yrsjmz0319 [facility] [id number] Information: 615813,M55895 Erythrocyte distribution width (RBC) [Ratio] 12.8 % Normal 11.7-15.0 [facility] Work Phone: Comment on above: PATIENT NOT FASTINGP ERFORMED BY: JAMA [address] [id number] Information: 667663,[id number] Hematocrit (Bld) [Volume fraction] 43.0 % Normal 36.0-50.0 [facility] Work Phone: Comment on above: PATIENT NOT FASTINGP ERFORMED BY: JAMA Richardson[address] [id number] Information: 127534,Q96743 Hemoglobin (Bld) [Mass/Vol] 14.1 g/dL Normal 12.5-17.0 [facility] Work Phone: Comment on above: PATIENT NOT FASTINGP ERFORMED BY: JAMA [place] 4409870 [facility] [id number] Information: 127354,A59103 Immature granulocytes (Bld) [#/Vol] 0.0 {x10E3/uL} Normal 0.0-0.1 [facility] Work Phone: Comment on above: PATIENT NOT FASTINGP ERFORMED BY: JAMA [place] 4409870 [facility] [id number] Information: 816053,L35640 Immature granulocytes/100 WBC (Bld) 0 % Normal 0-2 [facility] Work Phone: Comment on above: Please note refere nce interval change PATIENT NOT FASTINGP ERFORMED BY: JAMA [place] 4409870 [facility] [id number] Information: 161890,L81554 Lymphocytes (Bld) [#/Vol] 2.5 {x10E3/uL} Normal 0.7-4.5 [facility] Work Phone: Comment on above: PATIENT NOT FASTINGP ERFORMED BY: JAMA Teresa Jiménezlin6370 [facility] [id number] Information: 455292,Z12642 Lymphocytes/100 WBC (Bld) 28 % Normal 14-46 [facility] Work Phone: Comment on above: PATIENT NOT FASTINGP ERFORMED BY: JAMA Jiménezlin6370 [facility] [id number] Information: 313821,A05393 MCH (RBC) [Entitic mass] 29.5 pg Normal 27.0-34.0 [facility] Work Phone: Comment on above: PATIENT NOT FASTINGP ERFORMED BY: JAMA Dylan Icosov8693 [facility] [id number] Information: 565204,E98628 MCHC (RBC) [Mass/Vol] 32.8 g/dL Normal 32.0-36.0 [facility] Internal Medicine Work Phone: Comment on above: PATIENT NOT FASTINGP ERFORMED BY: JAMA DylanJay V[place] 4797670 [facility] [id number] Information: 311280,O39721 MCV (RBC) [Entitic vol] 90 fL Normal 80-98 [facility] Work Phone: Comment on above: PATIENT NOT FASTINGP ERFORMED BY: JAMA DylanJay [place] 4797670 [facility] [id number] Information: 238159,O93854 Monocytes (Bld) [#/Vol] 0.9 {x10E3/uL} Normal 0.1-1.0 [facility] Work Phone: Comment on above: PATIENT NOT FASTINGP ERFORMED BY: JAMA GarciaCo Gjvhxt6804 [facility] [id number] Information: 020195,A51675 Monocytes/100 WBC (Bld) 11 % Normal 4-13 [facility] Work Phone: Comment on above: PATIENT NOT FASTINGP ERFORMED BY: JAMA Richardson Gjiuud6165 [facility] [id number] Information: 135505,R06846 Neutrophils (Bld) [#/Vol] 5.0 {x10E3/uL} Normal 1.8-7.8 [facility] Internal Medicine Work Phone: Comment on above: PATIENT NOT FASTINGP ERFORMED BY: JAMA Richardson[address] [id number] Information: 756793,N42085 Neutrophils/100 WBC (Bld) 55 % Normal 40-74 [facility] Internal Medicine Work Phone: Comment on above: PATIENT NOT FASTINGP ERFORMED BY: JAMA Richardson Sqzykd5908 [facility] [id number] Information: 499761,A07855 Platelets (Bld) [#/Vol] 236 {x10E3/uL} Normal 140-415 [facility] Internal Medicine Work Phone: Comment on above: PATIENT NOT FASTINGP ERFORMED BY: JAMA RichardsonInspira Medical Center VinelandGkgbgx7466 [facility] [id number] Information: 674592,D97846 RBC (Bld) [#/Vol] 4.78 {x10E6/uL} Normal 4.10-5.[address] [facility] Internal Medicine Work Phone: Comment on above: PATIENT NOT FASTINGP ERFORMED BY: JAMA GarciaCorewell [facility]6370 [facility] [id number] Information: 931412,[id number] WBC (Bld) [#/Vol] 8.9 {x10E3/uL} Normal 4.0-10.5 [facility] Internal Medicine Work Phone: Comment on above: PATIENT NOT FASTINGP ERFORMED BY: JAMA [facility] Zetkkt9024 [facility] [id number] Information: 598085,S76458 METABOLIC PANEL, COMPREHENSI VE (06319)Ordered By: Manager Man[employer] on 09-16-2010 Albumin [Mass/Vol] 4.9 g/dL Normal 3.5-5.5 Compr hensive Internal Medicine Work Phone: Comment on above: PATIENT NOT FASTINGP ERFORMED BY: JAMA [facility] Suvsdl4053 [address]enez RoadDublin [place] [id number] Albumin/Globulin [Mass ratio] 2.0 {ratio} Normal 1.1-2.5 [facility] Work Phone: Comment on above: PATIENT NOT FASTINGP ERFORMED BY: CB [facility] Hhjeem5834 [address]enez RoadDublin [place] [id number] ALP [Catalytic activity/Vol] 54 [iU]/L Normal 25-150 [facility] Work Phone: Comment on above: PATIENT NOT FASTINGP ERFORMED BY: JAMA [facility] Fvovow4436 [address] RoadDublin [place] [id number] ALT [Catalytic activity/Vol] 43 [iU]/L Normal 0-55 [facility] Work Phone: Comment on above: PATIENT NOT FASTINGP ERFORMED BY: JAMA LabRoger Zqztjn5491 [address] Roadblin [place] [id number] AST [Catalytic activity/Vol] 41 [iU]/L Abnormal 0-40 [facility] Work Phone: Comment on above: PATIENT NOT FASTINGP ERFORMED BY: JAMA Jiménezlin6370 [address] RoadDublin [place] [id number] Bilirubin [Mass/Vol] 0.3 mg/dL Normal 0.0-1.2 Comp rehensive Internal Medicine Work Phone: Comment on above: PATIENT NOT FASTINGP ERFORMED BY: CB [facility] Xwxoyn0323 [address] RoadDublin [place] [id number] Calcium [Mass/Vol] 10.0 mg/dL Normal 8.7-10.2 [facility] Internal Medicine Work Phone: Comment on above: PATIENT NOT FASTINGP ERFORMED BY: JAMA [facility] Mvzcct0065 [address] RoadDublin [place] [id number] Chloride [Moles/Vol] 103 mmol/L Normal 97-108 [facility] centerensive Internal Medicine Work Phone: Comment on above: PATIENT NOT FASTINGP ERFORMED BY: CB [facility] Cphueb0204 [address] RoadDublin [place] [id number] CO2 [Moles/Vol] 23 mmol/L Normal 20-32 Comprehen sive Internal Medicine Work Phone: Comment on above: PATIENT NOT FASTINGP ERFORMED BY: CB [facility] Doznso1130 [address] [facility]bl[facility] [place] [id number] Creatinine [Mass/Vol] 1.04 mg/dL Normal 0.76-1.27 [facility] prehensive Internal Medicine Work Phone: Comment on above: PATIENT NOT FASTINGP ERFORMED BY: CB [facility] Lpfimn8098 [address] RoadWashington [facility] [id number] GFR/1.73 sq M predicted among blacks MDRD (S/P/Bld) [Vol rate/Area] 95 mL/min/{1.73_m2} Normal Comprehensiv e Internal Medicine Work Phone: Comment on above: Note: A persistent e GFR <60 mL/min/1.73 m2 (3 months or more) mayindicate chronic kidney disease. An eGFR >59 mL/min/1.73 m2 with anelevated urine protein also may indicate chronic kidney disease.Calculated using CKD-EPI formula. PATIENT NOT FASTINGP ERFORMED BY: CB [facility] Hkwgqe6400 [address] [facility] [id number] GFR/1.73 sq M predicted among non-blacks CKD-EPI (S/P/Bld) [Vol rate/Area] 82 mL/min/1.73 Normal [facility] Work Phone: Comment on above: PATIENT NOT FASTINGP ERFORMED BY: CB [facility] Vehgjv[address] [facility] [place] [id number] Globulin (S) [Mass/Vol] 2.5 g/dL Normal 1.5-4.5 [facility] Work Phone: Comment on above: PATIENT NOT FASTINGP ERFORMED BY: CB [facility] Rcgcao5458 [address] [facility]bl[facility] [place] [id number] Glucose [Mass/Vol] 92 mg/dL Normal 65-99 Compre [facility] Internal Medicine Work Phone: Comment on above: PATIENT NOT FASTINGP ERFORMED BY: JAMA [facility] Fabikh2603 Jimenez RoadDuin [place] [id number] Potassium [Moles/Vol] 4.2 mmol/L Normal 3.5-5.2 [facility] Internal Medicine Work Phone: Comment on above: PATIENT NOT FASTINGP ERFORMED BY: CB [facility] Mkokon9374 [address] [facility] [id number] Protein [Mass/Vol] 7.4 g/dL Normal 6.0-8.5 [facility] Internal Medicine Work Phone: Comment on above: PATIENT NOT FASTINGP ERFORMED BY: CB [facility] Wfjxhh4753 [address] [facility] [id number] Sodium [Moles/Vol] 141 mmol/L Normal 135-145 [facility] Internal Medicine Work Phone: Comment on above: PATIENT NOT FASTINGP ERFORMED BY: CB [facility] Lewtpc3332 [address] [facility] [id number] Urea nitrogen [Mass/Vol] 18 mg/dL Normal 6-24 [facility] Internal Medicine Work Phone: Comment on above: PATIENT NOT FASTINGP ERFORMED BY: JAMA LabCothania Xcgmum7271 [facility] [id number] Urea nitrogen/Creatinine [Mass ratio] 17 mg/mg Normal 9-20 [facility] Internal Medicine Work Phone: Comment on above: PATIENT NOT FASTINGP ERFORMED BY: CB [facility] Xkzcuh5094 [address] [facility] [id number] TSH (07542)Ordered By: Hermelindo novoa Dye Range Feeder on 09-16-2010 TSH Qn 1.660 {uIU/mL} Normal 0.450-4.50 0 [facility] Internal Medicine Work Phone: Comment on above: PATIENT NOT FASTINGP ERFORMED BY: JAMA [facility] Ahwxph3171 [facility] [id number] Blood Glucose , Office (8296 2)Ordered By: Yudith Vaz on 05-30-2010 Glucose Glucometer (BldC) [Moles/Vol] 102 1 Normal [facility] Work Phone: HgA1C , Office (92001)Ordere d By: Yudith Vaz on 05-30-2010 HbA1c (Bld) [Mass fraction] 6.0 % Normal 4.6 - 7.1 [facility] Work Phone: MICROALBUMINOrdered By: Syst em Dye Range Feeder on 05-24-2010 Albumin DL <= 20 mg/L (U) [Mass/Vol] 7.3 ug/mL Normal 0.0-17.0 [facility] Work Phone: Comment on above: PATIENT NOT FASTINGP ERFORMED BY: JAMA [facility] Dpjweh5055 [address]enez RoadDublin [place] [id number] Albumin/Creatinine (U) [Mass ratio] 5.0 {mg/g_creat} Normal 0.0-30.0 [facility] Work Phone: Comment on above: PATIENT NOT FASTINGP ERFORMED BY: CB [facility] Orwvzj2285 [address]enez RoadDublin [place] [id number] Creatinine (U) [Mass/Vol] 145.3 mg/dL Normal 22.0-328.0 [facility] Work Phone: Comment on above: PATIENT NOT FASTINGP ERFORMED BY: CB [facility] Zhdtjo5223 [address] RoadDublin [place] [id number] URINALYSIS, W/ MICRO (15017) Ordered By: Manager Man[employer] on 05-24-2010 Appearance (U) Clear Normal Comprehens johann Internal Medicine Work Phone: Comment on above: PATIENT NOT FASTINGP ERFORMED BY: CB [facility] Gqogqr4340 [address] RoadDublin [place] [id number] Information: [id number] Bilirubin Ql (U) Negative Normal Comprehe nsive Internal Medicine Work Phone: Comment on above: PATIENT NOT FASTINGP ERFORMED BY: JAMA [facility] Giledg4629 [address] RoadDublin [place] [id number] Information: [id number] Color (U) Yellow Normal [facility] Work Phone: Comment on above: PATIENT NOT FASTINGP ERFORMED BY: JAMA [facility] Azifqt2992 [address] RoadDublin [place] [id number] Information: [id number] Glucose Ql (U) Negative Normal Comprehens johann Internal Medicine Work Phone: Comment on above: PATIENT NOT FASTINGP ERFORMED BY: JAMA [facility] Gdfxqg6076 [address] RoadDublin [place] [id number] Information: [id number] Hemoglobin Ql (U) Negative Normal Compreh ensive Internal Medicine Work Phone: Comment on above: PATIENT NOT FASTINGP ERFORMED BY: JAMA [facility] Uyxcyz9538 [address] RoadDublin [place] [id number] Information: [id number] Ketones Ql (U) Negative Normal Comprehens johann Internal Medicine Work Phone: Comment on above: PATIENT NOT FASTINGP ERFORMED BY: JAMA [facility] Txgxzn8681 Jimenez RoadCritical Access Hospitalin [place] [id number] Information: [id number] Leukocyte esterase Test strip Ql (U) Negative Normal [facility] Work Phone: Comment on above: PATIENT NOT FASTINGP ERFORMED BY: JAMA [facility] Fmeezo5766 Jimenez RoadCritical Access Hospitalin [place] [id number] Information: [id number] Microscopic observation LM Nom (Urine sed) See below: Normal [facility] Work Phone: Comment on above: PATIENT NOT FASTINGP ERFORMED BY: JAMA [facility] Yfiuwr3734 [address] RoadDuin [place] [id number] Information: [id number] Microscopic observation LM Nom (Urine sed) MICRON Normal [facility] Work Phone: Comment on above: Microscopic follows if indicated. PATIENT NOT FASTINGP ERFORMED BY: JAMA [facility] Iqcxhq1930 [address] RoadDublin [place] [id number] Information: [id number] Nitrite Ql (U) Negative Normal Comprehens johann Internal Medicine Work Phone: Comment on above: PATIENT NOT FASTINGP ERFORMED BY: JAMA [facility] Lxtohq9168 [address] RoadDublin [place] [id number] Information: [id number] pH (U) 5.0 [pH] Normal 5.0-7.5 [facility] Work Phone: Comment on above: PATIENT NOT FASTINGP ERFORMED BY: JAMA Richardson Obbbfp4404 [facility] [id number] Information: [id number] Protein Ql (U) Negative Normal Comprehens johann Internal Medicine Work Phone: Comment on above: PATIENT NOT FASTINGP ERFORMED BY: Radha[address] [id number] Information: [id number] Specific gravity (U) [Rel density] 1.019 1 Normal 1.005-1.03 0 [facility] Work Phone: Comment on above: PATIENT NOT FASTINGP ERFORMED BY: RadhaMary Ville 7471470 [facility] [id number] Information: [id number] Urobilinogen Test strip (U) [Mass/Vol] 0.2 mg/dL Normal 0.0-1.9 Comprehensi Internal Medicine Work Phone: Comment on above: PATIENT NOT FASTINGP ERFORMED BY: JAMA RichardsonInspira Medical Center VinelandBxcvlk0174 [facility] [id number] Information: [id number] CBC WITH MANUAL DIFF (70580) Ordered By: Manager [employer] on 05-23-2010 Basophils (Bld) [#/Vol] 0.0 {x10E3/uL} Normal 0.0-0.2 [facility] Work Phone: Comment on above: PATIENT WAS FASTINGP ERFORMED BY: RadhaMary Ville 7471470 [facility] [id number] Information: 509851,K95039 Basophils/100 WBC (Bld) 0 % Normal 0-3 [facility] Work Phone: Comment on above: PATIENT WAS FASTINGP ERFORMED BY: [place] [id number] [facility] [id number] Information: [id number] Eosinophils (Bld) [#/Vol] 0.2 {x10E3/uL} Normal 0.0-0.4 [facility] Work Phone: Comment on above: PATIENT WAS FASTINGP ERFORMED BY: [facility]6370 [facility] [id number] Information: [id number] Eosinophils/100 WBC (Bld) 2 % Normal 0-7 [facility] Work Phone: Comment on above: PATIENT WAS FASTINGP ERFORMED BY: [place] [id number] [facility] [id number] Information: [id number] Erythrocyte distribution width (RBC) [Ratio] 12.9 % Normal 11.7-15.0 [facility] Work Phone: Comment on above: PATIENT WAS FASTINGP ERFORMED BY: [address] [id number] Information: [id number] Hematocrit (Bld) [Volume fraction] 40.3 % Normal 36.0-50.0 [facility] Work Phone: Comment on above: PATIENT WAS FASTINGP ERFORMED BY: [place] [id number] [facility] [id number] Information: 457409,[id number] Hemoglobin (Bld) [Mass/Vol] 14.5 g/dL Normal 12.5-17.0 [facility] Work Phone: Comment on above: PATIENT WAS FASTINGP ERFORMED BY: [facility]6370 [facility] [id number] Information: 537497,[id number] Immature granulocytes (Bld) [#/Vol] 0.0 {x10E3/uL} Normal 0.0-0.1 [facility] Work Phone: Comment on above: PATIENT WAS FASTINGP ERFORMED BY: [facility]6370 [facility] [id number] Information: 751987,[id number] Immature granulocytes/100 WBC (Bld) 0 % Normal 0-1 [facility] Work Phone: Comment on above: PATIENT WAS FASTINGP ERFORMED BY: [address] [id number] Information: [id number] Lymphocytes (Bld) [#/Vol] 3.0 {x10E3/uL} Normal 0.7-4.5 [facility] Work Phone: Comment on above: PATIENT WAS FASTINGP ERFORMED BY: [address] [id number] Information: 454606,[id number] Lymphocytes/100 WBC (Bld) 34 % Normal 14-46 [facility] Work Phone: Comment on above: PATIENT WAS FASTINGP ERFORMED BY: [address] [id number] Information: [id number],[id number] MCH (RBC) [Entitic mass] 31.6 pg Normal 27.0-34.0 [facility] Internal Medicine Work Phone: Comment on above: PATIENT WAS FASTINGP ERFORMED BY: [address] [id number] Information: [id number],[id number] MCHC (RBC) [Mass/Vol] 36.0 g/dL Normal 32.0-36.0 [facility] Internal Medicine Work Phone: Comment on above: PATIENT WAS FASTINGP ERFORMED BY: [address] [id number] Information: [id number] MCV (RBC) [Entitic vol] 88 fL Normal 80-98 [facility] Work Phone: Comment on above: PATIENT WAS FASTINGP ERFORMED BY: [address] [id number] Information: [id number],[id number] Monocytes (Bld) [#/Vol] 1.0 {x10E3/uL} Normal 0.1-1.0 [facility] Work Phone: Comment on above: PATIENT WAS FASTINGP ERFORMED BY: [facility]CoInsp[facility] VinelandFdjmpf7926 [facility] [id number] Information: [id number] Monocytes/100 WBC (Bld) 11 % Normal 4-13 [facility] Work Phone: Comment on above: PATIENT WAS FASTINGP ERFORMED BY: [facility]6370 [facility] [id number] Information: [id number],[id number] Neutrophils (Bld) [#/Vol] 4.7 {x10E3/uL} Normal 1.8-7.8 [facility] Work Phone: Comment on above: PATIENT WAS FASTINGP ERFORMED BY: [facility]6370 [facility] [id number] Information: [id number] Neutrophils/100 WBC (Bld) 53 % Normal 40-74 [facility] Work Phone: Comment on above: PATIENT WAS FASTINGP ERFORMED BY: LabCoInspira [facility] Center VinelandJekjoa8437 [facility] [id number] Information: [id number] Platelets (Bld) [#/Vol] 236 {x10E3/uL} Normal 140-415 [facility] Work Phone: Comment on above: PATIENT WAS FASTINGP ERFORMED BY: [facility] Hqsvcs4774 [facility] [id number] Information: [id number] RBC (Bld) [#/Vol] 4.59 {x10E6/uL} Normal 4.10-5.[address] [facility] Internal Medicine Work Phone: Comment on above: PATIENT WAS FASTINGP ERFORMED BY: [facility]6370 [facility] [id number] Information: [id number] WBC (Bld) [#/Vol] 9.0 {x10E3/uL} Normal 4.0-10.5 [facility] prehensive Internal Medicine Work Phone: Comment on above: PATIENT WAS FASTINGP ERFORMED BY: JAMA LabCothania Ytfdtg5[address] [facility] OaklandD[place] [id number] Information: [id number] HEPATIC FUNCTION PANEL (8007 6)Ordered By: Manager [employer] on 05-23-2010 Bilirubin.direct [Mass/Vol] 0.18 mg/dL Normal 0.00-0.40 [facility] Work Phone: Comment on above: PATIENT WAS FASTINGP ERFORMED BY: JAMA LabCo Isljts[address] [facility] [place] [id number] LIPID PANEL (24653)Ordered B y: Manager [employer] on 05-23-2010 Cholesterol [Mass/Vol] 161 mg/dL Normal 100-199 [facility] Work Phone: Comment on above: PATIENT WAS FASTINGP ERFORMED BY: LabCo Zangcy[address] [facility] [place] [id number] Cholesterol in HDL [Mass/Vol] 44 mg/dL Normal [facility] Work Phone: Comment on above: According to ATP-III Guidelines, HDL-C >59 mg/dL is considered anegative risk factor for CHD. PATIENT WAS FASTINGP ERFORMED BY: LabCo Xhlyus[address] [facility]in [place] [id number] Cholesterol in LDL [Mass/Vol] 87 mg/dL Normal 0-99 [facility] Work Phone: Comment on above: PATIENT WAS FASTINGP ERFORMED BY: CB [facility] Nkcswp0108 [address] [facility] [place] [id number] Cholesterol in LDL/Cholesterol in HDL [Mass ratio] 2.0 {ratio_units} Normal 0.0-3.6 [facility] Work Phone: Comment on above: PATIENT WAS FASTINGP ERFORMED BY: CB [facility] Jaxdsr7883 [address]enez RoadDublin [place] [id number] Cholesterol in VLDL [Mass/Vol] 30 mg/dL Normal 5-40 [facility] Work Phone: Comment on above: PATIENT WAS FASTINGP ERFORMED BY: JAMA LabCothania Wrrtkd8469 [address]enez RoadDublin [place] [id number] Triglyceride [Mass/Vol] 151 mg/dL Abnormal 0-149 [facility] Work Phone: Comment on above: PATIENT WAS FASTINGP ERFORMED BY: JAMA [facility] Wcfxvt8147 [address]enez RoadDublin [place] [id number] METABOLIC PANEL, COMPREHENSI VE (53157)Ordered By: Manager [employer] on 05-23-2010 Albumin [Mass/Vol] 4.8 g/dL Normal 3.5-5.5 [facility] Internal Medicine Work Phone: Comment on above: PATIENT WAS FASTINGP ERFORMED BY: JAMA LabCothania Acvfrf2315 [address]enez RoadDublin [place] [id number] Albumin/Globulin [Mass ratio] 1.8 {ratio} Normal 1.1-2.5 [facility] Work Phone: Comment on above: PATIENT WAS FASTINGP ERFORMED BY: JAMA [facility] Azjayb1236 [address]enez RoadDublin [place] [id number] ALP [Catalytic activity/Vol] 57 [iU]/L Normal 25-150 [facility] Work Phone: Comment on above: PATIENT WAS FASTINGP ERFORMED BY: JAMA [facility] Clpyyl3126 [address] RoadDublin [place] [id number] ALT [Catalytic activity/Vol] 38 [iU]/L Normal 0-55 [facility] Work Phone: Comment on above: PATIENT WAS FASTINGP ERFORMED BY: JAMA [facility] Gpesgd9349 Jim[address] RoadDublin [place] [id number] AST [Catalytic activity/Vol] 35 [iU]/L Normal 0-40 [facility] Work Phone: Comment on above: PATIENT WAS FASTINGP ERFORMED BY: JAMA [facility] Cagvnr4607 [address] RoadDublin [place] [id number] Bilirubin [Mass/Vol] 0.7 mg/dL Normal 0.0-1.2 [facility] rehensive Internal Medicine Work Phone: Comment on above: PATIENT WAS FASTINGP ERFORMED BY: CB [facility] Nhiyas2675 [address] RoadDublin [place] [id number] Calcium [Mass/Vol] 9.9 mg/dL Normal 8.7-10.2 [facility] Internal Medicine Work Phone: Comment on above: PATIENT WAS FASTINGP ERFORMED BY: CB [facility] Ygwodw4949 [address] RoadDublin [place] [id number] Chloride [Moles/Vol] 101 mmol/L Normal 97-108 [facility] Work Phone: Comment on above: PATIENT WAS FASTINGP ERFORMED BY: CB [facility] Lrqmzm7340 [address] RoadDublin [place] [id number] CO2 [Moles/Vol] 22 mmol/L Normal 20-[address] [facility] Internal Medicine Work Phone: Comment on above: PATIENT WAS FASTINGP ERFORMED BY: CB [facility] Smnpqj0482 [address] RoadCritical Access Hospitalin [place] [id number] Creatinine [Mass/Vol] 1.08 mg/dL Normal 0.76-1.27 [facility] Work Phone: Comment on above: PATIENT WAS FASTINGP ERFORMED BY: CB [facility] Skuzrs9055 [address] RoadDuin [place] [id number] GFR/1.73 sq M predicted among blacks MDRD (S/P/Bld) [Vol rate/Area] 91 mL/min/{1.73_m2} Normal Comprehensiv e Internal Medicine Work Phone: Comment on above: Note: A persistent e GFR <60 mL/min/1.73 m2 (3 months or more) mayindicate chronic kidney disease. An eGFR >59 mL/min/1.73 m2 with anelevated urine protein also may indicate chronic kidney disease.Calculated using CKD-EPI formula. PATIENT WAS FASTINGP ERFORMED BY: CB [facility] Xbcfiu4277 [address] RoadDublin [place] [id number] GFR/1.73 sq M predicted among non-blacks CKD-EPI (S/P/Bld) [Vol rate/Area] 78 mL/min/1.73 Normal [facility] Internal Medicine Work Phone: Comment on above: PATIENT WAS FASTINGP ERFORMED BY: CB [facility] Jxktpl6045 [address] RoadDublin [place] [id number] Globulin (S) [Mass/Vol] 2.6 g/dL Normal 1.5-4.5 [facility] Internal Medicine Work Phone: Comment on above: PATIENT WAS FASTINGP ERFORMED BY: CB [facility] Kqelgh8126 [address] RoadDublin [place] [id number] Glucose [Mass/Vol] 89 mg/dL Normal 65-99 [facility] Internal Medicine Work Phone: Comment on above: PATIENT WAS FASTINGP ERFORMED BY: LabCo Gnitma6950 [address] RoadDublin [place] [id number] Potassium [Moles/Vol] 4.0 mmol/L Normal 3.5-5.2 [facility] Internal Medicine Work Phone: Comment on above: PATIENT WAS FASTINGP ERFORMED BY: LabCo Cfqkgh3890 [address] RoadDublin [place] [id number] Protein [Mass/Vol] 7.4 g/dL Normal 6.0-8.5 [facility] Internal Medicine Work Phone: Comment on above: PATIENT WAS FASTINGP ERFORMED BY: LabCo Hmhbwo4844 [address] RoadDublin [place] [id number] Sodium [Moles/Vol] 137 mmol/L Normal 135-145 [facility] Internal Medicine Work Phone: Comment on above: PATIENT WAS FASTINGP ERFORMED BY: [facility] Gqvuly7518 [address] RoadDublin [place] [id number] Urea nitrogen [Mass/Vol] 12 mg/dL Normal 6-24 [facility] Internal Medicine Work Phone: Comment on above: PATIENT WAS FASTINGP ERFORMED BY: CB [facility] Wuyjax5803 [address] RoadDublin [place] [id number] Urea nitrogen/Creatinine [Mass ratio] 11 mg/mg Normal 9-20 [facility] Work Phone: Comment on above: PATIENT WAS FASTINGP ERFORMED BY: JAMA LabCo Yiuweh8225 [facility] [id number] TSH (13277)Ordered By: Hermelindo novoa [employer] on 05-23-2010 TSH Qn 1.350 {uIU/mL} Normal 0.450-4.50 0 [facility] Work Phone: Comment on above: PATIENT WAS FASTINGP ERFORMED BY: JAMA [facility] Xkdcde5617 [facility] [id number] Blood Glucose , Office (8296 2)Ordered By: Yudith Vaz on 01-31-2010 Glucose Glucometer (BldC) [Moles/Vol] 98 1 Normal [facility] Work Phone: HgA1C , Office (90817)Ordere d By: Yudith Vaz on 01-31-2010 HbA1c (Bld) [Mass fraction] 5.8 % Normal 4.6 - 7.1 [facility] Work Phone: Blood Glucose , Office (8296 2)Ordered By: Yudith Vaz on 10-13-2009 Glucose Glucometer (BldC) [Moles/Vol] 98 1 Normal [facility] Work Phone: HgA1C , Office (18699)Ordere d By: Yudith Vaz on 10-13-2009 HbA1c (Bld) [Mass fraction] 5.7 % Normal 4.6 - 7.1 [facility] Work Phone: LIPOPROTEIN, BLD, BY NMR (32 686)Ordered By: Manager [employer] on 09-30-2009 Cholesterol [Mass/Vol] 231 mg/dL Abnormal [facility] Work Phone: Comment on above: PATIENT NOT FASTINGP ERFORMED BY: Edward Cameron [place] [id number] Information: [id number] Cholesterol in HDL [Mass/Vol] 0.9 umol/L Abnormal [facility] Work Phone: Comment on above: PATIENT NOT FASTINGP ERFORMED BY: Edward HdzPaperV [address] [id number] Information: [id number] Cholesterol in HDL [Mass/Vol] 49 mg/dL Normal [facility] Work Phone: Comment on above: PATIENT NOT FASTINGP ERFORMED BY: S[address] [id number] Information: [id number],[id number] Cholesterol in LDL [Mass/Vol] 161 mg/dL Abnormal [facility] Work Phone: Comment on above: LDL-C is inaccurate if patient is nonfasting..Optimal < 100Above optimal 100 - 129Borderline 130 - 159High 160 - 189Very high > 189. PATIENT NOT FASTINGP ERFORMED BY: S[address] [id number] Information: [id number] Lipoprotein.alpha [Moles/Vol] 34.0 umol/L Normal [facility] Work Phone: Comment on above: PATIENT NOT FASTINGP ERFORMED BY: S[address] [id number] Information: [id number] Lipoprotein.beta.subp article [Entitic length] 20.3 nm Abnormal [...] PATIENT NOT FASTINGP ERFORMED BY: S7 [employer] Uaz6812 [facility] [id number] Information: 034901,[id number] Lipoprotein.beta.subp article [Moles/Vol] 2049 nmol/L Abnormal Comprehensiv e Internal Medicine Work Phone: Comment on above: Low < 1000Moderate 1 000 - 1299Borderline-High 1300 - 1599High 1600 - 2000Very High > 2000 PATIENT NOT FASTINGP ERFORMED BY: S7 [employer] Sme3792 [facility] [id number] Information: [id number] Lipoprotein.beta.subp article.small [Moles/Vol] 1213 nmol/L Abnormal [facility] Work Phone: Comment on above: PATIENT NOT FASTINGP ERFORMED BY: S7 [employer] Unv7544 [facility] [id number] Information: [id number],[id number] Triglyceride [Mass/Vol] 106 mg/dL Normal [facility] Work Phone: Comment on above: PATIENT NOT FASTINGP ERFORMED BY: S7 [employer] Mnq8855 [facility] [id number] Information: [id number] LIPOPROTEIN, BLD, BY NMR (31192) 5.5 nmol/L Abnormal [facility] Work Phone: Comment on above: PATIENT NOT FASTINGP ERFORMED BY: S7 [employer] Tcv5301 [facility] CenterRalP[facility] [id number] Information: [id number] LIPOPROTEIN, BLD, BY NMR (00927) 1213 nmol/L Abnormal [facility] Work Phone: Comment on above: PATIENT NOT FASTINGP ERFORMED BY: S7 [employer] Wxw1081 [facility] [id number] Information: 547687,[id number] LIPOPROTEIN, BLD, BY NMR (67000) < 8.3 Abnormal [facility] Work Phone: Comment on above: Small LDL-P, LDL Par ticle Size, Large HDL-P, Large VLDL-PVLDL Size, HDL Size, HDL Particle, and LP-IR Scorehave been validated by [employer] but not cleared by US FDA;the clinical utility of these test results has not been fully established. PATIENT NOT FASTINGP ERFORMED BY: S7 [employer] Mth7644 [facility] [id number] Information: [id number] LIPOPROTEIN, BLD, BY NMR (41964) 20.3 nm Abnormal [facility] Work Phone: Comment on above: PATIENT NOT FASTINGP ERFORMED BY: S7 LipoSciPaperV Cki7120 [facility] [id number] Information: 509381,[id number] LIPOPROTEIN, BLD, BY NMR (76872) 83 1 Abnormal [facility] Work [...] >63 PATIENT NOT FASTINGP ERFORMED BY: S7 LipoSciPaperV Zwx0136 [facility] [id number] Information: [id number],[id number] LIPOPROTEIN, BLD, BY NMR (59568) 56.5 nm Abnormal [facility] Work Phone: Comment on above: PATIENT NOT FASTINGP ERFORMED BY: S7 LipoSciPaperV [address] [place] [address] [id number] Information: [id number],[id number] Blood Glucose , Office (6396 2)Ordered By: Yudith Vaz on 06-09-2009 Glucose Glucometer (BldC) [Moles/Vol] 94 1 Normal [facility] Work Phone: HgA1C , Office (47300)Ordere d By: Yudith Vaz on 06-09-2009 HbA1c (Bld) [Mass fraction] 5.6 % Normal 4.6 - 7.1 [facility] Work Phone: LIPOPROTEIN, BLD, BY NMR (62 148)Ordered By: Manager [employer] on 05-24-2009 Cholesterol [Mass/Vol] 210 mg/dL Abnormal [facility] Work Phone: Comment on above: PATIENT WAS FASTINGP ERFORMED BY: S7 LipoSciPaperV Qta9854 [facility] [id number] Information: [id number] Cholesterol in HDL [Mass/Vol] mg/dL Abnormal [facility] Work Phone: Comment on above: PATIENT WAS FASTINGP ERFORMED BY: S7 [employer] Upx5706 [facility] [id number] Information: [id number] Cholesterol in HDL [Mass/Vol] 45 mg/dL Normal [facility] Work Phone: Comment on above: PATIENT WAS FASTINGP ERFORMED BY: S7 [facility]oScifl[facility] Byc3979 [facility] [id number] Information: [id number] Cholesterol in LDL [Mass/Vol] 134 mg/dL Abnormal [facility] Work Phone: Comment on above: .Optimal < 100Above optimal 100 - 129Borderline 130 - 159High 160 - 189Very high > 189. PATIENT WAS FASTINGP ERFORMED BY: S7 LipoScifloyd [facility] Sat9909 [facility] [id number] Information: [id number] Lipoprotein.alpha [Moles/Vol] 30.9 umol/L Normal [facility] Work Phone: Comment on above: PATIENT WAS FASTINGP ERFORMED BY: S7 [facility]oScifl[facility] Rgo9118 [facility] [id number] Information: 638527,[id number] Lipoprotein.beta.subp article [Entitic length] 20.3 nm Abnormal [facility] Work Phone: Comment on above: PATIENT WAS FASTINGP ERFORMED BY: S7 [employer] Dpi4477 [facility] [id number] Information: [id number],[id number] Lipoprotein.beta.subp article [Moles/Vol] 1873 nmol/L Abnormal Comprehensiv e Internal Medicine Work Phone: Comment on above: Low < 1000Moderate 1 000 - 1299Borderline-High 1300 - 1599High 1600 - 2000Very High > 2000. PATIENT WAS FASTINGP ERFORMED BY: S7 [employer] Dui9645 [facility] [id number] Information: 763512,[id number] Lipoprotein.beta.subp article.small [Moles/Vol] 985 nmol/L Abnormal [facility] Work Phone: Comment on above: PATIENT WAS FASTINGP ERFORMED BY: S7 [employer] Nrz7322 [facility] [id number] Information: [id number],[id number] Triglyceride [Mass/Vol] 153 mg/dL Abnormal [facility] Work Phone: Comment on above: PATIENT WAS FASTINGP ERFORMED BY: S7 [employer] Hwp5515 [facility] [id number] Information: [id number] LIPOPROTEIN, BLD, BY NMR (18888) < 8.3 Abnormal [facility] Work Phone: Comment on above: Small LDL-P, LDL Par ticle Size, Large HDL-P, Large VLDL-PVLDL Size, HDL Size, HDL Particle, and LP-IR Scorehave been validated by [employer] but not cleared by US FDA;the clinical utility of these test results has not been fully established. PATIENT WAS FASTINGP ERFORMED BY: S7 [employer] Qmr9785 [facility] [id number] Information: [id number] LIPOPROTEIN, BLD, BY NMR (95243) 76 1 Abnormal [facility] Work [...] PATIENT WAS FASTINGP ERFORMED BY: S7 [employer] I[address] [place] [address] [id number] Information: [id number] LIPOPROTEIN, BLD, BY NMR (40896) 51.1 nm Abnormal [facility] Work Phone: Comment on above: PATIENT WAS FASTINGP ERFORMED BY: S7 [employer] Mwh1872 [facility] [id number] Information: [id number] LIPOPROTEIN, BLD, BY NMR (03475) 985 nmol/L Abnormal [facility] Work Phone: Comment on above: PATIENT WAS FASTINGP ERFORMED BY: S7 [employer] Pbz0842 [facility] [id number] Information: [id number] LIPOPROTEIN, BLD, BY NMR (38791) 20.3 nm Abnormal [facility] Work Phone: Comment on above: PATIENT WAS FASTINGP ERFORMED BY: S7 [employer] Okb4749 [facility] [id number] Information: [id number] LIPOPROTEIN, BLD, BY NMR (36287) 5.7 nmol/L Abnormal [facility] Work Phone: Comment on above: PATIENT WAS FASTINGP ERFORMED BY: S7 [employer] Tyd4965 [facility] [id number] Information: [id number] Blood Glucose , Office (9396 2)Ordered By: Yudith Vaz on 01-25-2009 Glucose Glucometer (BldC) [Moles/Vol] 106 1 Normal [facility] Work Phone: Comment on above: done km HgA1C , Office (94783)Ordere d By: Yudith Vaz on 01-25-2009 HbA1c (Bld) [Mass fraction] 5.5 % Normal 4.6 - 7.1 [facility] Work Phone: Comment on above: done km CBC WITH MANUAL DIFF (64084) Ordered By: Subha Camacho on 01-20-2009 Basophils (Bld) [#/Vol] 0.1 {x10E3/uL} Normal 0.0-0.2 [facility] Work Phone: Comment on above: PATIENT WAS FASTINGP ERFORMED BY: CB [facility] Ozxqbl5698 [address] RoadDuin [place] [id number] Basophils/100 WBC (Bld) 1 % Normal 0-3 [facility] Work Phone: Comment on above: PATIENT WAS FASTINGP ERFORMED BY: CB [facility] Ibxkdm5362 [address] RoadDublin [place] [id number] Eosinophils (Bld) [#/Vol] 0.2 {x10E3/uL} Normal 0.0-0.4 [facility] Work Phone: Comment on above: PATIENT WAS FASTINGP ERFORMED BY: JAMA LabAdarsh Iyfihl[address] [facility] [id number] Eosinophils/100 WBC (Bld) 2 % Normal 0-7 [facility] Work Phone: Comment on above: PATIENT WAS FASTINGP ERFORMED BY: LabCore[facility]6370 [address] [facility] [id number] Erythrocyte distribution width (RBC) [Ratio] 12.5 % Normal 11.7-15.0 [facility] Work Phone: Comment on above: PATIENT WAS FASTINGP ERFORMED BY: [facility] Jwmudf1131 [address] [facility] [id number] Hematocrit (Bld) [Volume fraction] 42.5 % Normal 36.0-50.0 [facility] Work Phone: Comment on above: PATIENT WAS FASTINGP ERFORMED BY: LabCore[facility]6370 [address] [facility] [id number] Hemoglobin (Bld) [Mass/Vol] 14.9 g/dL Normal 12.5-17.0 [facility] Work Phone: Comment on above: PATIENT WAS FASTINGP ERFORMED BY: LabCore[facility]6370 [address] [facility] [id number] Lymphocytes (Bld) [#/Vol] 2.3 {x10E3/uL} Normal 0.7-4.5 [facility] Work Phone: Comment on above: PATIENT WAS FASTINGP ERFORMED BY: LabCore[facility]6[address] [facility] [id number] Lymphocytes/100 WBC (Bld) 28 % Normal 14-46 [facility] Work Phone: Comment on above: PATIENT WAS FASTINGP ERFORMED BY: LabCo Aztrdr4265 [address] [facility] [id number] MCH (RBC) [Entitic mass] 31.2 pg Normal 27.0-34.0 [facility] Work Phone: Comment on above: PATIENT WAS FASTINGP ERFORMED BY: JAMA LabCo Ilhknt[address] [facility] [facility] [id number] MCHC (RBC) [Mass/Vol] 35.0 g/dL Normal 32.0-36.0 [facility] prehensive Internal Medicine Work Phone: Comment on above: PATIENT WAS FASTINGP ERFORMED BY: LabCo [id number] [facility] [id number] MCV (RBC) [Entitic vol] 89 fL Normal 80-98 [facility] Work Phone: Comment on above: PATIENT WAS FASTINGP ERFORMED BY: LabAdarsh Aaltty1382 [facility] [id number] Monocytes (Bld) [#/Vol] 0.6 {x10E3/uL} Normal 0.1-1.0 [facility] Work Phone: Comment on above: PATIENT WAS FASTINGP ERFORMED BY: [facility] Wnggim4896 [facility] [id number] Monocytes/100 WBC (Bld) 8 % Normal 4-13 [facility] Work Phone: Comment on above: PATIENT WAS FASTINGP ERFORMED BY: LabAdarsh Kykfzf2921 [facility] [id number] Neutrophils (Bld) [#/Vol] 4.9 {x10E3/uL} Normal 1.8-7.8 [facility] Work Phone: Comment on above: PATIENT WAS FASTINGP ERFORMED BY: [facility] Hhpbey[address] [facility] [place] [id number] Neutrophils/100 WBC (Bld) 61 % Normal 40-74 [facility] Work Phone: Comment on above: PATIENT WAS FASTINGP ERFORMED BY: [facility] Ifxbfy9454 [facility] [place] [id number] Platelets (Bld) [#/Vol] 204 {x10E3/uL} Normal 140-415 [facility] Work Phone: Comment on above: PATIENT WAS FASTINGP ERFORMED BY: JAMA [facility] Wgzvhs[address] [facility] [facility] [place] [id number] RBC (Bld) [#/Vol] 4.77 {x10E6/uL} Normal 4.10-5.60 [facility] Work Phone: Comment on above: PATIENT WAS FASTINGP ERFORMED BY: JAMA [facility] [id number] [facility] [facility] [place] [id number] WBC (Bld) [#/Vol] 8.1 {x10E3/uL} Normal 4.0-10.5 [facility] Work Phone: Comment on above: PATIENT WAS FASTINGP ERFORMED BY: JAMA Jiménezlin6370 [facility] [id number] Glucose, PP/2 Hour ([id number])Or dered By: Subha Camacho on 01-20-2009 Glucose 2 Hr post meal [Mass/Vol] 158 mg/dL Abnormal 65-139 [facility] Work Phone: Comment on above: PATIENT WAS FASTINGC linical Information: [id number] 75G DRAWN@ 11:15AM PERFORMED BY: JAMA Nogueira6370 [facility] [id number] LIPOPROTEIN, BLD, BY NMR (41 295)Ordered By: Subha Camacho on 01-20-2009 Cholesterol [Mass/Vol] 212 mg/dL Abnormal [facility] Work Phone: Comment on above: PATIENT WAS FASTINGC linical Information: [id number] PERFORMED BY: JAMA LabCothania JiménezVtkzcb[address] [facility] [facility] [place] [id number] Cholesterol in HDL [Mass/Vol] 45 mg/dL Normal [facility] Work Phone: Comment on above: PATIENT WAS FASTINGC linical Information: [id number] PERFORMED BY: JAMA GarciaCothania JiménezSybrms3368 [facility] [id number] Cholesterol in HDL [Mass/Vol] mg/dL Abnormal [facility] Work Phone: Comment on above: PATIENT WAS FASTINGC linical Information: [id number] PERFORMED BY: Summay6370 [facility] [id number] Cholesterol in LDL [Mass/Vol] 123 mg/dL Abnormal [facility] Work Phone: Comment on above: . Optimal < 100 Abov e optimal 100 - 129 Borderline 130 - 159 High 160 - 189 Very high > 189 . PATIENT WAS FASTINGC linical Information: [id number] PERFORMED BY: Summay6370 [facility] [id number] Triglyceride [Mass/Vol] 221 mg/dL Abnormal [facility] Work Phone: Comment on above: PATIENT WAS FASTINGC linical Information: [id number] PERFORMED BY: Summay6370 [facility] [id number] LIPOPROTEIN, BLD, BY NMR ([id number]) [facility] Normal [facility] Work Phone: Comment on above: High Risk: LDL-P < 1 000; Secondary goal: Small LDL-P < 527Moderately High-Risk: LDL-P < 1300; Secondary goal: Small LDL-P < 527 PATIENT WAS FASTINGC linical Information: [id number] PERFORMED BY: Summay6370 [facility] [id number] LIPOPROTEIN, BLD, BY NMR (19272) 2068 nmol/L Abnormal [facility] Work Phone: Comment on above: . Optimal < 1000 Abo ve optimal 1000 - 1299 Borderline 1300 - 1599 High 1600 - 2000 Very high > 2000 . PATIENT WAS FASTINGC linical Information: [id number] PERFORMED BY: Mind-NRG70 [facility] [id number] LIPOPROTEIN, BLD, BY NMR (49722) 20.2 nm Abnormal [facility] Work Phone: Comment on above: . Small (Pattern B) 18.0 - 20.5 Large (Pattern A) 20.6 - 23.0 . PATIENT WAS FASTINGC linical Information: [id number] PERFORMED BY: JAMA ColonaryConcepts6370 [facility] [id number] LIPOPROTEIN, BLD, BY NMR (23356) 14.2 nmol/L Abnormal [facility] Work Phone: Comment on above: Small LDL-P, LDL Par ticle Size, Large HDL-P and Large VLDL- Phave been validated by [employer] but not cleared by US FDA;the clinical utility of these test results has not been fully established. PATIENT WAS FASTINGC linical Information: [id number] PERFORMED BY: JAMA ColonaryConcepts6370 [facility] [id number] LIPOPROTEIN, BLD, BY NMR (55201) 1368 nmol/L Abnormal [facility] Work Phone: Comment on above: . Low < 117 Moderate 117 - 526 Borderline 527 - 839 High > 839 . PATIENT WAS FASTINGC linical Information: [id number] PERFORMED BY: JAMA LabNextCloudrp Xjmtmg0436 [facility] [id number] METABOLIC PANEL, COMPREHENSI VE (12343)Ordered By: Subha Camacho on 01-20-2009 Albumin [Mass/Vol] 4.7 g/dL Normal 3.5-5.5 [facility] Internal Medicine Work Phone: Comment on above: PATIENT WAS FASTINGP ERFORMED BY: JAMA [facility] Fdmhak2949 [facility] [id number] Albumin/Globulin [Mass ratio] 2.0 {ratio} Normal 1.1-2.5 [facility] Work Phone: Comment on above: PATIENT WAS FASTINGP ERFORMED BY: JAMA LabNextCloudrp [id number] [facility] [id number] ALP [Catalytic activity/Vol] 72 [iU]/L Normal 25-150 [facility] Work Phone: Comment on above: PATIENT WAS FASTINGP ERFORMED BY: JAMA LabNextCloud [id number] [facility] [id number] ALT [Catalytic activity/Vol] 43 [iU]/L Normal 0-55 [facility] Internal Medicine Work Phone: Comment on above: PATIENT WAS FASTINGP ERFORMED BY: [facility] Tcgjyr5936 [facility] [place] [id number] AST [Catalytic activity/Vol] 25 [iU]/L Normal 0-40 [facility] Internal Medicine Work Phone: Comment on above: PATIENT WAS FASTINGP ERFORMED BY: [facility] Prkypy7816 Jim[address] [facility] [id number] Bilirubin [Mass/Vol] 0.5 mg/dL Normal 0.1-1.2 [facility] Work Phone: Comment on above: PATIENT WAS FASTINGP ERFORMED BY: [facility] Vtzwvv4983 Jim[place] [facility] [id number] Calcium [Mass/Vol] 10.2 mg/dL Normal 8.5-10.6 [facility] Internal Medicine Work Phone: Comment on above: PATIENT WAS FASTINGP ERFORMED BY: [facility] Siwtdt3456 Jim[address] [facility] [id number] Chloride [Moles/Vol] 102 mmol/L Normal 97-108 [facility] Internal Medicine Work Phone: Comment on above: PATIENT WAS FASTINGP ERFORMED BY: [facility] Hvqvwg9436 Jim[address] [facility] [id number] CO2 [Moles/Vol] 22 mmol/L Normal 20-32 [facility] Internal Medicine Work Phone: Comment on above: PATIENT WAS FASTINGP ERFORMED BY: [facility] [id number] [facility] [place] [id number] Creatinine [Mass/Vol] 0.98 mg/dL Normal 0.76-1.27 [facility] Internal Medicine Work Phone: Comment on above: PATIENT WAS FASTINGP ERFORMED BY: [facility] Dlvzuc[address] [facility] [place] [id number] GFR/1.73 sq M predicted among blacks MDRD (S/P/Bld) [Vol rate/Area] mL/min/{1.73_m2} Normal [facility] Internal Medicine Work Phone: Comment on above: Note: Persistent red uction for 3 months or more in an eGFR<60 mL/min/1.73 m2 defines CKD. Patients with eGFR values>/=60 mL/min/1.73 m2 may also have CKD if evidence of persistentproteinuria is present. Additional information may be found [email or web address]. PATIENT WAS FASTINGP ERFORMED BY: JAMA [facility] [id number] [facility] [id number] GFR/1.73 sq M.predicted MDRD (S/P/Bld) [Vol rate/Area] mL/min/{1.73_m2} Normal [facility] Internal Medicine Work Phone: Comment on above: PATIENT WAS FASTINGP ERFORMED BY: JAMA [facility] Phbdle9980 [facility] [id number] Globulin (S) [Mass/Vol] 2.4 g/dL Normal 1.5-4.5 [facility] Internal Medicine Work Phone: Comment on above: PATIENT WAS FASTINGP ERFORMED BY: JAMA [facility] Fzjlgv1940 [facility] [id number] Glucose [Mass/Vol] 102 mg/dL Abnormal 65-99 [facility] Internal Medicine Work Phone: Comment on above: PATIENT WAS FASTINGP ERFORMED BY: JAMA [facility] [id number] [facility] [id number] Potassium [Moles/Vol] 4.3 mmol/L Normal 3.5-5.2 [facility] Internal Medicine Work Phone: Comment on above: PATIENT WAS FASTINGP ERFORMED BY: [facility] Awrvlm4210 [address] [facility] [id number] Protein [Mass/Vol] 7.1 g/dL Normal 6.0-8.5 [facility] Internal Medicine Work Phone: Comment on above: PATIENT WAS FASTINGP ERFORMED BY: [facility] Djyemu5254 [facility] [id number] Sodium [Moles/Vol] 139 mmol/L Normal 135-145 [facility] Internal Medicine Work Phone: Comment on above: PATIENT WAS FASTINGP ERFORMED BY: [facility] Tmgzma2012 [facility] [id number] Urea nitrogen [Mass/Vol] 16 mg/dL Normal 5-26 [facility] Work Phone: Comment on above: PATIENT WAS FASTINGP ERFORMED BY: CB [facility] Wonrbu3160 [facility] [id number] Urea nitrogen/Creatinine [Mass ratio] 16 mg/mg Normal 8-27 [facility] Work Phone: Comment on above: PATIENT WAS FASTINGP ERFORMED BY: [facility] Eyjcoc0434 [facility] [id number] MICROALBUMINOrdered By: Ashley Camacho on 01-20-2009 Albumin DL <= 20 mg/L (U) [Mass/Vol] 5.3 ug/mL Normal 0.0-17.0 [facility] Work Phone: Comment on above: PATIENT WAS FASTINGP ERFORMED BY: [facility] [id number] [facility] [id number] Albumin/Creatinine (U) [Mass ratio] 4.6 {mg/g_creat} Normal 0.0-30.0 [facility] Work Phone: Comment on above: PATIENT WAS FASTINGP ERFORMED BY: [facility] [id number] [facility] [id number] Creatinine (U) [Mass/Vol] 115.2 mg/dL Normal 22.0-328.0 [facility] Work Phone: Comment on above: PATIENT WAS FASTINGP ERFORMED BY: [facility] Ofxrid3041 [facility] [id number] PSA (PROSTATE SPECIFIC ANTIG EN) (V76.44)Ordered By: Subha Camacho on 01-20-2009 Prostate specific Ag [Mass/Vol] 1.6 ng/mL Normal 0.0-4.0 [facility] Work Phone: Comment on above: Steve ECLIA methodol ogy. .According to the [place] [employer], Serum PSA shoulddecrease and remain [...] yr; PATIENT WAS FASTINGPERFORMED BY: CB [facility] Yhfyvh6096 [address]enez RoadDublin [place] [id number] TSH ([id number])Ordered By: Rosalind Camacho on 01-20-2009 TSH Qn 1.500 {uIU/mL} Normal 0.450-4.50 0 [facility] Work Phone: Comment on above: PATIENT WAS FASTINGP ERFORMED BY: CB [facility] Dvgxqz9874 [address] RoadDublin [place] [id number] URINALYSIS, W/ MICRO ([id number]) Ordered By: Subha Camacho on 01-20-2009 Appearance (U) Clear Normal Comprehens johann Internal Medicine Work Phone: Comment on above: PATIENT WAS FASTINGP ERFORMED BY: CB [facility] Nunljv8219 [address] RoadDublin [place] [id number] Bilirubin Ql (U) Negative Normal Comprehe nsive Internal Medicine Work Phone: Comment on above: PATIENT WAS FASTINGP ERFORMED BY: CB [facility] Rgxfti1787 [address] RoadDublin [place] [id number] Color (U) Yellow Normal [facility] Work Phone: Comment on above: PATIENT WAS FASTINGP ERFORMED BY: CB [facility] Hbfhox8669 [address] RoadDublin [place] [id number] Glucose Ql (U) Negative Normal Comprehens johann Internal Medicine Work Phone: Comment on above: PATIENT WAS FASTINGP ERFORMED BY: CB [facility] [id number] [address] RoadD[address] [place] [id number] Hemoglobin Ql (U) Negative Normal Compreh ensive Internal Medicine Work Phone: Comment on above: PATIENT WAS FASTINGP ERFORMED BY: JAMA Nogueira6370 [facility] [id number] Ketones Ql (U) Negative Normal Comprehens johann Internal Medicine Work Phone: Comment on above: PATIENT WAS FASTINGP ERFORMED BY: JAMA Nogueira6370 [facility] [id number] Leukocyte esterase Test strip Ql (U) Negative Normal [facility] Work Phone: Comment on above: PATIENT WAS FASTINGP ERFORMED BY: JAMA Nogueira6370 [facility] [id number] Microscopic observation LM Nom (Urine sed) MICRON Normal [facility] Work Phone: Comment on above: Microscopic follows if indicated. PATIENT WAS FASTINGP ERFORMED BY: JAMA Jiménezlin6370 [facility] [id number] Microscopic observation LM Nom (Urine sed) See below: Normal [facility] Work Phone: Comment on above: PATIENT WAS FASTINGP ERFORMED BY: JAMA Nogueira6370 [facility] [id number] Nitrite Ql (U) Negative Normal Comprehens johann Internal Medicine Work Phone: Comment on above: PATIENT WAS FASTINGP ERFORMED BY: JAMA Jiménezlin6370 [facility] [id number] pH (U) 5.5 [pH] Normal 5.0-7.5 [facility] Work Phone: Comment on above: PATIENT WAS FASTINGP ERFORMED BY: JAMA Jiménezlin6370 [facility] [id number] Protein Ql (U) Negative Normal Comprehens johann Internal Medicine Work Phone: Comment on above: PATIENT WAS FASTINGP ERFORMED BY: JAMA Jiménezlin6370 [facility] [id number] Specific gravity (U) [Rel density] 1.017 1 Normal 1.005-1.03 0 [facility] Work Phone: Comment on above: PATIENT WAS FASTINGP ERFORMED BY: [facility]6370 [facility] [id number] Urobilinogen Test strip (U) [Mass/Vol] 0.2 mg/dL Normal 0.0-1.9 Comprehensi Internal Medicine Work Phone: Comment on above: PATIENT WAS FASTINGP ERFORMED BY: [facility]6370 [facility] [id number] Vital Signs Date Time Vital Sign Value Performing Clinician Facility 11-08-2023 10:070400 Body height 172.7 cm Patrice Edwards Jr., MD Work Phone: [facility] 10-25-2023 13:27-0400 Body height 172.7 cm Patrice Edwards Jr., MD Work Phone: [facility] 10-25-2023 13:27-0400 Diastolic blood pressure 82 mm[Hg] Patrice Edwards Jr., MD Work Phone: [facility] 10-25-2023 13:27-0400 Heart rate 77 /min Patrice Edwards Jr., MD Work Phone: [facility] 10-25-2023 13:27-0400 SaO2% (BldA) [Mass fraction] 98 % Patrice Edwards Jr., MD Work Phone: [facility] 10-25-2023 13:27-0400 Systolic blood pressure 140 mm[Hg] Patrice Edwards Jr., MD Work Phone: [facility] 10-02-2023 10:01-0400 Body mass index (BMI) [Ratio] 31.62 kg/m2 Justine Leary APRN.SECOND BAKER Work Phone: [facility] 10-02-2023 10:01-0400 Body weight 93 kg Justine Leary APRN.SECOND BAKER Work Phone: [facility] 10-02-2023 10:01-0400 Diastolic blood pressure 90 mm[Hg] Justine Tannhof PIG IRON LOADER.[employer] Work Phone: [facility] 10-02-2023 10:01-0400 Heart rate 77 /min Justine Tannhof P[employer] IRON LOADER.[employer]D [employer]AKER Work Phone: [facility] 10-02-2023 10:01-0400 Respiratory rate 16 /min Justine Tannhof PIG IRON LOADER.[employer]D [employer]AKER Work Phone: [facility] 10-02-2023 10:01-0400 SaO2% (BldA) [Mass fraction] 97 % Justine Tannhof P[employer] IRON LOADER.SECOND BAKER Work Phone: [facility] 10-02-2023 10:01-0400 Systolic blood pressure 136 mm[Hg] Justine Tannhof PIG IRON LOADER.SECOND BAKER Work Phone: [facility] 09-12-2023 13:07-0400 Body mass index (BMI) [Ratio] 31.61 kg/m2 Justine Tannhof P[employer] LOADER.[employer]D BAKER Work Phone: [facility] 09-12-2023 13:07-0400 Body weight 92.99 kg Justine Tannhof P[employer] IRON LOADER.[employer]AKER Work Phone: [facility] 09-12-2023 13:07-0400 Diastolic blood pressure 78 mm[Hg] Justine Tannhof P[employer] IRON LOADER.[employer]D BAKER Work Phone: [facility] 09-12-2023 13:07-0400 Heart rate 89 /min Justine Tannhof P[employer] LO[employer]ER.[employer]AKER Work Phone: [facility] 09-12-2023 13:07-0400 Respiratory rate 16 /min Justine Tannhof P[employer] IRON LOADER.[employer]D [employer]AKER Work Phone: [facility] 09-12-2023 13:07-0400 SaO2% (BldA) [Mass fraction] 97 % Justine Tannhof P[employer] LO[employer]ER.SECOND BAKER Work Phone: [facility] 09-12-2023 13:07-0400 Systolic blood pressure 126 mm[Hg] Justine Tannhof P[employer] IRON LOADER.SECOND BAKER Work Phone: [facility] 11-20-2022 10:10-0400 Body height 171.5 cm Justine Samuelhof P[employer] LOADER.[employer]D BAKER Work Phone: [facility] 11-20-2022 10:10-0400 Body weight 93.44 kg Justine Samuelhof P[employer] LOADER.[employer]D [employer]AKER Work Phone: [facility] 11-20-2022 10:10-0400 Diastolic blood pressure 84 mm[Hg] Justine Samuelhof P[employer] IR[employer] LOADER.SECOND BAKER Work Phone: [facility] 11-20-2022 10:10-0400 Heart rate 72 /min Justine Samuelhof P[employer] LO[employer]ER.[employer]COND BAKER Work Phone: [facility] 11-20-2022 10:10-0400 Respiratory rate 16 /min Justine Samuelhof P[employer] LOADER.[employer]D BAKER Work Phone: [facility] 11-20-2022 10:10-0400 SaO2% (BldA) [Mass fraction] 97 % Justine Samuelhof P[employer] LOADER.SECOND BAKER Work Phone: [facility] 11-20-2022 10:10-0400 Systolic blood pressure 130 mm[Hg] Justine Samuelhof P[employer] IRON LOADER.[employer]COND BAKER Work Phone: [facility] 09-24-2013 15:32-0400 BMI (Body Mass Index) 32.09 kg/m2 Subha Mireille [facility] Internal Medicine Work Phone: 09-24-2013 15:32-0400 Body weight 95.74 kg Subha Camacho [facility] Internal Medicine Work Phone: 09-24-2013 15:32-0400 BP Diastolic 78 mm[Hg] Subha Camacho [facility] Internal Medicine Work Phone: Comment on above: Patient Position: Sitting; Cuff Location : Left Arm; Cuff Size: Standard 09-24-2013 15:32-0400 BP Systolic 122 mm[Hg] [facility] Work Phone: Comment on above: Patient Position: Sitting; Cuff Location : Left Arm; Cuff Size: Standard 09-24-2013 15:320400 BSA (Body Surface Area) 2.09 m2 Subha Camacho [facility] Internal Medicine Work Phone: 09-24-2013 15:320400 Height 172.72 cm Subha Camacho [facility] Internal Medicine Work Phone: 09-24-2013 15:32-0400 Pulse (Heart Rate) 70 /min Subha Camacho [facility] Internal Medicine Work Phone: Comment on above: Pattern: Regular 09-24-2013 15:32-0400 Respiratory Rate 18 /min Subha Camacho [facility] Internal Medicine Work Phone: 07-18-2013 15:01-0400 BMI (Body Mass Index) 32.09 kg/m2 Subha Camacho [facility] Internal Medicine Work Phone: 07-18-2013 15:0400 Body weight 95.74 kg Subha Camacho [facility] Internal Medicine Work Phone: 07-18-2013 15:01-0400 BP Diastolic 82 mm[Hg] Subha Camacho [facility] Internal Medicine Work Phone: Comment on above: Patient Position: Sitting; Cuff Location : Left Arm; Cuff Size: Standard 07-18-2013 15:01-0400 BP Systolic 118 mm[Hg] Subha Camacho [facility] Internal Medicine Work Phone: Comment on above: Patient Position: Sitting; Cuff Location : Left Arm; Cuff Size: Standard 07-18-2013 15:01-0400 BSA (Body Surface Area) 2.09 m2 Subha Camacho [facility] Internal Medicine Work Phone: 07-18-2013 15:010400 Height 172.72 cm Subha Camacho [facility] Internal Medicine Work Phone: 07-18-2013 15:01-0400 Pulse (Heart Rate) 89 /min Subha Camacho [facility] Internal Medicine Work Phone: Comment on above: Pattern: Regular 07-18-2013 15:01-0400 Pulse Oximetry 98 % Subha Camacho [facility] Internal Medicine Work Phone: Comment on above: Room air 07-18-2013 15:01-0400 Respiratory Rate 18 /min Subha Camacho [facility] Internal Medicine Work Phone: Comment on above: Pattern: Unlabored 07-02-2013 15:16-0400 BMI (Body Mass Index) 32.09 kg/m2 [facility] j[facility]ann Internal Medicine Work Phone: 07-02-2013 15:16-0400 Body weight 95.74 kg Subha Camacho [facility] Work Phone: 07-02-2013 15:16-0400 BP Diastolic 76 mm[Hg] Subha Camacho [facility] Internal Medicine Work Phone: Comment on above: Patient Position: Sitting; Cuff Location : Left Arm; Cuff Size: Large 07-02-2013 15:16-0400 BP Systolic 128 mm[Hg] Subha Camacho [facility] Internal Medicine Work Phone: Comment on above: Patient Position: Sitting; Cuff Location : Left Arm; Cuff Size: Large 07-02-2013 15:16-0400 BSA (Body Surface Area) 2.09 m2 Subha Camacho [facility] Work Phone: 07-02-2013 15:16-0400 Height 172.72 cm Subha Camacho [facility] Internal Medicine Work Phone: 07-02-2013 15:16-0400 Pulse (Heart Rate) 72 /min Subha Camacho [facility] Work Phone: Comment on above: Pattern: Regular 07-02-2013 15:16-0400 Pulse Oximetry 98 % Subha Camacho [facility] Work Phone: Comment on above: Room air 07-02-2013 15:16-0400 Respiratory Rate 16 /min Subha Camacho [facility] Internal Medicine Work Phone: Comment on above: Pattern: Unlabored 06-11-2013 15:43-0400 BMI (Body Mass Index) 32.09 kg/m2 [facility] johann Internal Medicine Work Phone: 06-11-2013 15:43-0400 Body Temperature 98.6 [degF] Subha Camacho [facility] Internal Medicine Work Phone: Comment on above: Method: Oral 06-11-2013 15:43-0400 Body weight 95.74 kg Subha Camacho [facility] Internal Medicine Work Phone: 06-11-2013 15:43-0400 BP Diastolic 84 mm[Hg] Suhba Camacho [facility] Internal Medicine Work Phone: Comment on above: Patient Position: Sitting; Cuff Location : Left Arm; Cuff Size: Standard 06-11-2013 15:43-0400 BP Systolic 132 mm[Hg] Subha Camacho [facility] Internal Medicine Work Phone: Comment on above: Patient Position: Sitting; Cuff Location : Left Arm; Cuff Size: Standard 06-11-2013 15:43-0400 BSA (Body Surface Area) 2.09 m2 Subha Camacho [facility] Internal Medicine Work Phone: 06-11-2013 15:43-0400 Height 172.72 cm Subha Camacho [facility] Internal Medicine Work Phone: 06-11-2013 15:43-0400 Pulse (Heart Rate) 76 /min Subha Camacho [facility] Internal Medicine Work Phone: Comment on above: Pattern: Regular 06-11-2013 15:43-0400 Pulse Oximetry 98 % Subha Camacho [facility] Internal Medicine Work Phone: Comment on above: Room air 06-11-2013 15:43-0400 Respiratory Rate 16 /min Subha Camacho [facility] Internal Medicine Work Phone: Comment on above: Pattern: Unlabored 09-12-2012 10:59-0400 BMI (Body Mass Index) 31.94 kg/m2 Subha Camacho [facility] Internal Medicine Work Phone: 09-12-2012 10:59-0400 Body Temperature 98.4 [degF] Subha Camacho [facility] Internal Medicine Work Phone: Comment on above: Method: Oral 09-12-2012 10:59-0400 Body weight 95.28 kg Subha Camacho [facility] Internal Medicine Work Phone: 09-12-2012 10:59-0400 BP Diastolic 82 mm[Hg] Subha Camacho [facility] Internal Medicine Work Phone: Comment on above: Patient Position: Sitting; Cuff Location : Left Arm; Cuff Size: Large 09-12-2012 10:59-0400 BP Systolic 128 mm[Hg] Subha Camacho [facility] Internal Medicine Work Phone: Comment on above: Patient Position: Sitting; Cuff Location : Left Arm; Cuff Size: Large 09-12-2012 10:59-0400 BSA (Body Surface Area) 2.09 m2 Subha Camacho [facility] Internal Medicine Work Phone: 09-12-2012 10:59-0400 Height 172.72 cm Subha Camacho [facility] Internal Medicine Work Phone: 09-12-2012 10:59-0400 Pulse (Heart Rate) 60 /min Subha Camacho [facility] Internal Medicine Work Phone: Comment on above: Pattern: Regular 09-12-2012 10:59-0400 Respiratory Rate 16 /min Subha Camacho [facility] Internal Medicine Work Phone: Comment on above: Pattern: Unlabored 07-08-2012 08:57-0400 BMI (Body Mass Index) 31.68 kg/m2 Subha Camacho [facility] Internal Medicine Work Phone: 07-08-2012 08:57-0400 Body Temperature 97.8 [degF] Subha Camacho [facility] Internal Medicine Work Phone: Comment on above: Method: Oral 07-08-2012 08:57-0400 Body weight 94.52 kg Subha Camacho [facility] Internal Medicine Work Phone: 07-08-2012 08:57-0400 BP Diastolic 86 mm[Hg] Subha Camacho [facility] Internal Medicine Work Phone: Comment on above: Patient Position: Sitting; Cuff Location : Left Arm; Cuff Size: Large 07-08-2012 08:57-0400 BP Systolic 124 mm[Hg] Subha Camacho [facility] Internal Medicine Work Phone: Comment on above: Patient Position: Sitting; Cuff Location : Left Arm; Cuff Size: Large 07-08-2012 08:57-0400 BSA (Body Surface Area) 2.08 m2 Subha Camacho [facility] Internal Medicine Work Phone: 07-08-2012 08:57-0400 Height 172.72 cm Subha Camacho [facility] Internal Medicine Work Phone: 07-08-2012 08:57-0400 Pulse (Heart Rate) 72 /min Subha Camacho [facility] Internal Medicine Work Phone: Comment on above: Pattern: Regular 07-08-2012 08:57-0400 Respiratory Rate 20 /min Subha Camacho [facility] Internal Medicine Work Phone: Comment on above: Pattern: Unlabored 03-25-2012 15:55-0500 BMI (Body Mass Index) 32.6 kg/m2 Subha Camacho [facility] Internal Medicine Work Phone: 03-25-2012 15:55-0500 Body weight 97.27 kg Subha Camacho [facility] Internal Medicine Work Phone: 03-25-2012 15:55-0500 BP Diastolic 82 mm[Hg] Subha Camacho [facility] Internal Medicine Work Phone: Comment on above: Patient Position: Sitting; Cuff Location : Left Arm; Cuff Size: Large 03-25-2012 15:55-0500 BP Systolic 128 mm[Hg] Subha Camacho [facility] Internal Medicine Work Phone: Comment on above: Patient Position: Sitting; Cuff Location : Left Arm; Cuff Size: Large 03-25-2012 15:55-0500 BSA (Body Surface Area) 2.11 m2 Subha Camacho [facility] Internal Medicine Work Phone: 03-25-2012 15:55-0500 Height 172.72 cm Subha Camacho [facility] Internal Medicine Work Phone: 03-25-2012 15:55-0500 Pulse (Heart Rate) 64 /min Subha Camacho [facility] Internal Medicine Work Phone: Comment on above: Pattern: Regular 03-25-2012 15:55-0500 Respiratory Rate 16 /min Subha Camacho [facility] Internal Medicine Work Phone: Comment on above: Pattern: Unlabored 01-08-2012 15:48-0500 BMI (Body Mass Index) 31.65 kg/m2 [facility] Work Phone: 01-08-2012 15:48-0500 Body Temperature 97.8 [degF] Subha Camacho [facility] Internal Medicine Work Phone: Comment on above: Method: Oral 01-08-2012 15:48-0500 Body weight 94.43 kg Subha Camacho [facility] Internal Medicine Work Phone: 01-08-2012 15:48-0500 BP Diastolic 80 mm[Hg] Subha Camacho [facility] Internal Medicine Work Phone: Comment on above: Patient Position: Sitting; Cuff Location : Left Arm; Cuff Size: Standard 01-08-2012 15:48-0500 BP Systolic 118 mm[Hg] Subha Camacho [facility] Internal Medicine Work Phone: Comment on above: Patient Position: Sitting; Cuff Location : Left Arm; Cuff Size: Standard 01-08-2012 15:48-0500 BSA (Body Surface Area) 2.08 m2 Subha Camacho [facility] Internal Medicine Work Phone: 01-08-2012 15:48-0500 Height 172.72 cm Subha Camacho [facility] Internal Medicine Work Phone: 01-08-2012 15:48-0500 Pulse (Heart Rate) 64 /min Subha Camacho [facility] Internal Medicine Work Phone: Comment on above: Pattern: Regular 01-08-2012 15:48-0500 Respiratory Rate 16 /min Subha Camacho [facility] Internal Medicine Work Phone: Comment on above: Pattern: Unlabored 11-08-2011 16:10-0400 BMI (Body Mass Index) 31.65 kg/m2 [facility] Work Phone: 11-08-2011 16:10-0400 Body Temperature 97.9 [degF] Subha Camacho [facility] Internal Medicine Work Phone: Comment on above: Method: Oral 11-08-2011 16:10-0400 Body weight 94.43 kg Subha Camacho [facility] Internal Medicine Work Phone: 11-08-2011 16:10-0400 BP Diastolic 84 mm[Hg] Subha Camacho [facility] Internal Medicine Work Phone: Comment on above: Patient Position: Sitting; Cuff Location : Left Arm; Cuff Size: Large 11-08-2011 16:10-0400 BP Systolic 122 mm[Hg] Subha Camacho [facility] Internal Medicine Work Phone: Comment on above: Patient Position: Sitting; Cuff Location : Left Arm; Cuff Size: Large 11-08-2011 16:10-0400 BSA (Body Surface Area) 2.08 m2 Subha Camacho [facility] Internal Medicine Work Phone: 11-08-2011 16:10-0400 Height 172.72 cm Subha Camacho [facility] Internal Medicine Work Phone: 11-08-2011 16:10-0400 Pulse (Heart Rate) 60 /min Subha Camacho [facility] Internal Medicine Work Phone: Comment on above: Pattern: Regular 11-08-2011 16:10-0400 Respiratory Rate 20 /min Subha Camacho [facility] Internal Medicine Work Phone: Comment on above: Pattern: Unlabored 09-06-2011 15:50-0400 BMI (Body Mass Index) 31.65 kg/m2 Subha Camacho [facility] Internal Medicine Work Phone: 09-06-2011 15:50-0400 Body weight 94.43 kg Subha Camacho [facility] Internal Medicine Work Phone: 09-06-2011 15:50-0400 BP Diastolic 78 mm[Hg] Subha Camacho [facility] Internal Medicine Work Phone: Comment on above: Patient Position: Sitting; Cuff Location : Left Arm; Cuff Size: Standard 09-06-2011 15:50-0400 BP Systolic 124 mm[Hg] Subha Camacho [facility] Internal Medicine Work Phone: Comment on above: Patient Position: Sitting; Cuff Location : Left Arm; Cuff Size: Standard 09-06-2011 15:50-0400 BSA (Body Surface Area) 2.08 m2 Subha Camacho [facility] Internal Medicine Work Phone: 09-06-2011 15:50-0400 Height 172.72 cm Subha Camacho [facility] Internal Medicine Work Phone: 09-06-2011 15:50-0400 Pulse (Heart Rate) 68 /min Subha Camacho [facility] Internal Medicine Work Phone: Comment on above: Pattern: Regular 09-06-2011 15:50-0400 Respiratory Rate 18 /min Subha Camacho [facility] Internal Medicine Work Phone: Comment on above: Pattern: Unlabored 05-04-2011 07:32-0400 BMI (Body Mass Index) 31.86 kg/m2 Subha Camacho [facility] Internal Medicine Work Phone: 05-04-2011 07:32-0400 Body Temperature 97.3 [degF] Subha Camcaho [facility] Internal Medicine Work Phone: 05-04-2011 07:32-0400 Body weight 95.06 kg Subha Camacho [facility] Internal Medicine Work Phone: 05-04-2011 07:32-0400 BP Diastolic 70 mm[Hg] Subha Camacho [facility] Internal Medicine Work Phone: Comment on above: Patient Position: Sitting; Cuff Location : Left Arm; Cuff Size: Large 05-04-2011 07:32-0400 BP Systolic 122 mm[Hg] Subha Camacho [facility] Internal Medicine Work Phone: Comment on above: Patient Position: Sitting; Cuff Location : Left Arm; Cuff Size: Large 05-04-2011 07:32-0400 BSA (Body Surface Area) 2.09 m2 Subha Camacho [facility] Internal Medicine Work Phone: 05-04-2011 07:32-0400 Height 172.72 cm Subha Camacho [facility] Internal Medicine Work Phone: 05-04-2011 07:32-0400 Pulse (Heart Rate) 60 /min Subha Camacho [facility] Internal Medicine Work Phone: Comment on above: Pattern: Regular 05-04-2011 07:32-0400 Respiratory Rate 16 /min Subha Camacho [facility] Internal Medicine Work Phone: Comment on above: Pattern: Unlabored 04-27-2011 07:44-0500 BMI (Body Mass Index) 31.93 kg/m2 Subha Camacho [facility] Internal Medicine Work Phone: 04-27-2011 07:44-0500 Body Temperature 97.4 [degF] Subha Camacho [facility] Internal Medicine Work Phone: Comment on above: Method: Oral 04-27-2011 07:44-0500 Body weight 95.26 kg Subha Camacho [facility] Internal Medicine Work Phone: 04-27-2011 07:44-0500 BP Diastolic 72 mm[Hg] Subha Camacho [facility] Internal Medicine Work Phone: Comment on above: Patient Position: Sitting; Cuff Location : Left Arm; Cuff Size: Large 04-27-2011 07:44-0500 BP Systolic 124 mm[Hg] Subha Camacho [facility] Internal Medicine Work Phone: Comment on above: Patient Position: Sitting; Cuff Location : Left Arm; Cuff Size: Large 04-27-2011 07:44-0500 BSA (Body Surface Area) 2.09 m2 Subha Camacho [facility] Internal Medicine Work Phone: 04-27-2011 07:44-0500 Height 172.72 cm Subha Camacho [facility] Internal Medicine Work Phone: 04-27-2011 07:44-0500 Pulse (Heart Rate) 96 /min Subha Camacho [facility] Internal Medicine Work Phone: Comment on above: Pattern: Regular 04-27-2011 07:44-0500 Respiratory Rate 16 /min Subha Camacho [facility] Internal Medicine Work Phone: Comment on above: Pattern: Unlabored 04-05-2011 11:58-0500 BMI (Body Mass Index) 31.47 kg/m2 Subha Norris [facility] Internal Medicine Work Phone: 04-05-2011 11:58-0500 Body Temperature 97.5 [degF] Subha Camacho [facility] Internal Medicine Work Phone: 04-05-2011 11:58-0500 Body weight 93.9 kg Subha Camacho [facility] Internal Medicine Work Phone: 04-05-2011 11:58-0500 BP Diastolic 78 mm[Hg] Subha Camacho [facility] Internal Medicine Work Phone: Comment on above: Patient Position: Sitting; Cuff Location : Left Arm; Cuff Size: Large 04-05-2011 11:58-0500 BP Systolic 110 mm[Hg] Subha Camahco [facility] Internal Medicine Work Phone: Comment on above: Patient Position: Sitting; Cuff Location : Left Arm; Cuff Size: Large 04-05-2011 11:58-0500 BSA (Body Surface Area) 2.07 m2 Subha Camacho [facility] Internal Medicine Work Phone: 04-05-2011 11:58-0500 Height 172.72 cm Subha Camacho [facility] Internal Medicine Work Phone: 04-05-2011 11:58-0500 Pulse (Heart Rate) 76 /min Subha Camacho [facility] Internal Medicine Work Phone: Comment on above: Pattern: Regular 04-05-2011 11:58-0500 Respiratory Rate 16 /min Subha Camacho [facility] Internal Medicine Work Phone: Comment on above: Pattern: Unlabored 10-19-2010 13:30-0400 BMI (Body Mass Index) 30.93 kg/m2 Subha Norris [facility] Internal Medicine Work Phone: 10-19-2010 13:30-0400 Body Temperature 98.3 [degF] Subha Camacho [facility] Internal Medicine Work Phone: Comment on above: Method: Oral 10-19-2010 13:30-0400 Body weight 92.28 kg Subha Camacho [facility] Internal Medicine Work Phone: 10-19-2010 13:30-0400 BP Diastolic 80 mm[Hg] Subha Camacho [facility] Internal Medicine Work Phone: Comment on above: Patient Position: Sitting; Cuff Location : Left Arm; Cuff Size: Small 10-19-2010 13:30-0400 BP Systolic 122 mm[Hg] Subha Camacho [facility] Internal Medicine Work Phone: Comment on above: Patient Position: Sitting; Cuff Location : Left Arm; Cuff Size: Small 10-19-2010 13:30-0400 BSA (Body Surface Area) 2.06 m2 Subha Camacho [facility] Internal Medicine Work Phone: 10-19-2010 13:30-0400 Height 172.72 cm Subha Camacho [facility] Internal Medicine Work Phone: 10-19-2010 13:30-0400 Pulse (Heart Rate) 68 /min Subha Camacho [facility] Internal Medicine Work Phone: Comment on above: Pattern: Regular 10-19-2010 13:30-0400 Respiratory Rate 16 /min Subha Camacho [facility] Internal Medicine Work Phone: Comment on above: Pattern: Unlabored 10-03-2010 15:24-0400 BMI (Body Mass Index) 29.81 kg/m2 Subha Camacho [facility] Internal Medicine Work Phone: 10-03-2010 15:24-0400 Body Temperature 97.7 [degF] Subha Camacho [facility] Internal Medicine Work Phone: Comment on above: Method: Oral 10-03-2010 15:24-0400 Body weight 88.93 kg Subha Camacho [facility] Internal Medicine Work Phone: 10-03-2010 15:24-0400 BP Diastolic 78 mm[Hg] Subha Camacho [facility] Internal Medicine Work Phone: Comment on above: Patient Position: Sitting; Cuff Location : Left Arm; Cuff Size: Large 10-03-2010 15:24-0400 BP Systolic 122 mm[Hg] [facility] Work [facility]: Comment on above: Patient Position: Sitting; Cuff Location : Left Arm; Cuff Size: Large 10-03-2010 15:24-0400 BSA (Body Surface Area) 2.03 m2 uSbha Camacho [facility] Internal Medicine Work Phone: 10-03-2010 15:24-0400 Height 172.72 cm Subha [facility] Internal Medicine Work Phone: 10-03-2010 15:24-0400 Pulse (Heart Rate) 68 /min [facility] Work Phone: Comment on above: Pattern: Regular 10-03-2010 15:24-0400 Respiratory Rate 20 /min [facility] Work Phone: Comment on above: Pattern: Unlabored 09-16-2010 08:01-0400 BMI (Body Mass Index) 30.61 kg/m2 Subha Camacho [facility] Internal Medicine Work Phone: 09-16-2010 08:01-0400 Body weight 91.32 kg Subha Camacho [facility] Internal Medicine Work Phone: 09-16-2010 08:01-0400 BP Diastolic 90 mm[Hg] [facility] Work Phone: Comment on above: Patient Position: Sitting; Cuff Location : Left Arm; Cuff Size: Large 09-16-2010 08:01-0400 BP Systolic 124 mm[Hg] [facility] Work Phone: Comment on above: Patient Position: Sitting; Cuff Location : Left Arm; Cuff Size: Large 09-16-2010 08:01-0400 BSA (Body Surface Area) 2.05 m2 Subha [facility] Internal Medicine Work Phone: 09-16-2010 08:01-0400 Height 172.72 cm [facility] Work Phone: 09-16-2010 08:01-0400 Pulse (Heart Rate) 80 /min [facility] Internal Medicine Work Phone: Comment on above: Pattern: Regular 09-16-2010 08:01-0400 Respiratory Rate 20 /min Subha Camacho [facility] Internal Medicine Work Phone: Comment on above: Pattern: Unlabored 09-08-2010 14:39-0400 BMI (Body Mass Index) 31.7 kg/m2 Subha Norris [facility] Internal Medicine Work Phone: 09-08-2010 14:39-0400 Body Temperature 98.4 [degF] Subha Camacho [facility] Internal Medicine Work Phone: Comment on above: Method: Oral 09-08-2010 14:39-0400 Body weight 94.58 kg Subha Camacho [facility] Internal Medicine Work Phone: 09-08-2010 14:39-0400 BP Diastolic 82 mm[Hg] Subha Camacho [facility] Internal Medicine Work Phone: Comment on above: Patient Position: Sitting; Cuff Location : Left Arm; Cuff Size: Standard 09-08-2010 14:39-0400 BP Systolic 122 mm[Hg] Subha Camacho [facility] Internal Medicine Work Phone: Comment on above: Patient Position: Sitting; Cuff Location : Left Arm; Cuff Size: Standard 09-08-2010 14:39-0400 BSA (Body Surface Area) 2.08 m2 Subha Camacho [facility] Internal Medicine Work Phone: 09-08-2010 14:39-0400 Height 172.72 cm Subha Camacho [facility] Internal Medicine Work Phone: 09-08-2010 14:39-0400 Pulse (Heart Rate) 68 /min Subha Camacho [facility] Internal Medicine Work Phone: Comment on above: Pattern: Regular 09-08-2010 14:39-0400 Pulse Oximetry 97 % Subha Camacho [facility] Internal Medicine Work Phone: Comment on above: Room air 08-15-2010 16:10-0400 BMI (Body Mass Index) 31.7 kg/m2 Subha [facility] Internal Medicine Work Phone: 08-15-2010 16:10-0400 Body Temperature 97.5 [degF] Subha Camacho [facility] Internal Medicine Work Phone: Comment on above: Method: Oral 08-15-2010 16:10-0400 Body weight 94.58 kg Subha Camacho [facility] Internal Medicine Work Phone: 08-15-2010 16:10-0400 BP Diastolic 74 mm[Hg] Subha Camacho [facility] Internal Medicine Work Phone: Comment on above: Patient Position: Sitting; Cuff Location : Left Arm; Cuff Size: Standard 08-15-2010 16:10-0400 BP Systolic 126 mm[Hg] Subha Camacho [facility] Internal Medicine Work Phone: Comment on above: Patient Position: Sitting; Cuff Location : Left Arm; Cuff Size: Standard 08-15-2010 16:10-0400 BSA (Body Surface Area) 2.08 m2 Subha Camacho [facility] Internal Medicine Work Phone: 08-15-2010 16:10-0400 Height 172.72 cm Subha Camacho [facility] Internal Medicine Work Phone: 08-15-2010 16:10-0400 Pulse (Heart Rate) 72 /min Subha Camacho [facility] Internal Medicine Work Phone: Comment on above: Pattern: Regular 08-15-2010 16:10-0400 Respiratory Rate 16 /min Subha Camacho [facility] Internal Medicine Work Phone: Comment on above: Pattern: Unlabored 08-03-2010 10:35-0400 BMI (Body Mass Index) 31.7 kg/m2 [facility] Work Phone: 08-03-2010 10:35-0400 Body Temperature 98 [degF] Subha Camacho [facility] Internal Medicine Work Phone: Comment on above: Method: Oral 08-03-2010 10:35-0400 Body weight 94.58 kg Subha Camacho [facility] Internal Medicine Work Phone: 08-03-2010 10:35-0400 BP Diastolic 80 mm[Hg] Subha Camacho [facility] Internal Medicine Work Phone: Comment on above: Patient Position: Sitting; Cuff Location : Left Arm; Cuff Size: Standard 08-03-2010 10:35-0400 BP Systolic 130 mm[Hg] Subha Camacho [facility] Internal Medicine Work Phone: Comment on above: Patient Position: Sitting; Cuff Location : Left Arm; Cuff Size: Standard 08-03-2010 10:35-0400 BSA (Body Surface Area) 2.08 m2 Subha Camacho [facility] Internal Medicine Work Phone: 08-03-2010 10:35-0400 Height 172.72 cm Subha Camacho [facility] Internal Medicine Work Phone: 08-03-2010 10:35-0400 Pulse (Heart Rate) 64 /min Subha Camacho [facility] Internal Medicine Work Phone: Comment on above: Pattern: Regular 08-03-2010 10:35-0400 Respiratory Rate 17 /min Subha Camacho [facility] Internal Medicine Work Phone: Comment on above: Pattern: Unlabored 05-30-2010 15:25-0400 BMI (Body Mass Index) 31.7 kg/m2 Subha Camacho [facility] Internal Medicine Work Phone: 05-30-2010 15:25-0400 Body weight 94.58 kg Subha Camacho [facility] Internal Medicine Work Phone: 05-30-2010 15:25-0400 BP Diastolic 80 mm[Hg] Subha Camacho [facility] Internal Medicine Work Phone: Comment on above: Patient Position: Sitting; Cuff Location : Left Arm; Cuff Size: Large 05-30-2010 15:25-0400 BP Systolic 122 mm[Hg] [facility] Work Phone: Comment on above: Patient Position: Sitting; Cuff Location : Left Arm; Cuff Size: Large 05-30-2010 15:25-0400 BSA (Body Surface Area) 2.08 m2 Subha Camacho [facility] Internal Medicine Work Phone: 05-30-2010 15:25-0400 Height 172.72 cm Subha Camacho [facility] Internal Medicine Work Phone: 05-30-2010 15:25-0400 Pulse (Heart Rate) 72 /min Subha Camacho [facility] Internal Medicine Work Phone: Comment on above: Pattern: Regular 05-30-2010 15:25-0400 Respiratory Rate 20 /min Subha Camacho [facility] Internal Medicine Work Phone: Comment on above: Pattern: Unlabored 01-31-2010 16:13-0500 BMI (Body Mass Index) 31.56 kg/m2 Subha Camacho [facility] Internal Medicine Work Phone: 01-31-2010 16:13-0500 Body weight 94.15 kg Subha Camacho [facility] Internal Medicine Work Phone: 01-31-2010 16:13-0500 BP Diastolic 64 mm[Hg] Subha Camacho [facility] Internal Medicine Work Phone: Comment on above: Patient Position: Standing; Cuff Locatio n: Left Arm; Cuff Size: Standard 01-31-2010 16:13-0500 BP Systolic 118 mm[Hg] Subha Camacho [facility] Internal Medicine Work Phone: Comment on above: Patient Position: Standing; Cuff Locatio n: Left Arm; Cuff Size: Standard 01-31-2010 16:13-0500 BSA (Body Surface Area) 2.08 m2 Subha Camacho [facility] Internal Medicine Work Phone: 01-31-2010 16:13-0500 Height 172.72 cm Subha Camacho [facility] Internal Medicine Work Phone: 01-31-2010 16:13-0500 Pulse (Heart Rate) 60 /min Subha Camacho [facility] Internal Medicine Work Phone: Comment on above: Pattern: Regular 01-31-2010 16:13-0500 Respiratory Rate 20 /min Subha Camacho [facility] Internal Medicine Work Phone: Comment on above: Pattern: Unlabored 10-13-2009 15:46-0400 BMI (Body Mass Index) 30.15 kg/m2 Subha Camacho [facility] Internal Medicine Work Phone: 10-13-2009 15:46-0400 Body weight 89.95 kg Subha Camacho [facility] Internal Medicine Work Phone: 10-13-2009 15:46-0400 BP Diastolic 84 mm[Hg] Subha Camacho [facility] Internal Medicine Work Phone: Comment on above: Patient Position: Sitting; Cuff Location : Left Arm; Cuff Size: Large 10-13-2009 15:46-0400 BP Systolic 128 mm[Hg] Subha Camacho [facility] Internal Medicine Work Phone: Comment on above: Patient Position: Sitting; Cuff Location : Left Arm; Cuff Size: Large 10-13-2009 15:46-0400 BSA (Body Surface Area) 2.04 m2 Subha Camacho [facility] Internal Medicine Work Phone: 10-13-2009 15:46-0400 Height 172.72 cm [facility] Work Phone: 10-13-2009 15:46-0400 Pulse (Heart Rate) 68 /min Subha Camacho [facility] Internal Medicine Work Phone: Comment on above: Pattern: Regular 10-13-2009 15:46-0400 Respiratory Rate 20 /min Subha Camacho [facility] Internal Medicine Work Phone: Comment on above: Pattern: Unlabored 06-09-2009 16:04-0400 BMI (Body Mass Index) 30.9 kg/m2 [facility] Work Phone: 06-09-2009 16:04-0400 Body weight 92.19 kg Subha Camacho [facility] Internal Medicine Work Phone: 06-09-2009 16:04-0400 BP Diastolic 82 mm[Hg] Subha Camacho [facility] Internal Medicine Work Phone: Comment on above: Patient Position: Sitting; Cuff Location : Left Arm; Cuff Size: Large 06-09-2009 16:04-0400 BP Systolic 118 mm[Hg] [facility] Work Phone: Comment on above: Patient Position: Sitting; Cuff Location : Left Arm; Cuff Size: Large 06-09-2009 16:04-0400 BSA (Body Surface Area) 2.06 m2 Subha Camacho [facility] Internal Medicine Work Phone: 06-09-2009 16:04-0400 Height 172.72 cm Subha Camacho [facility] Internal Medicine Work Phone: 06-09-2009 16:04-0400 Pulse (Heart Rate) 60 /min Subha Camacho [facility] Internal Medicine Work Phone: Comment on above: Pattern: Regular 06-09-2009 16:04-0400 Respiratory Rate 16 /min Subha Camacho [facility] Internal Medicine Work Phone: Comment on above: Pattern: Unlabored 01-25-2009 16:44-0500 BMI (Body Mass Index) 31.69 kg/m2 Subha Camacho [facility] Internal Medicine Work Phone: 01-25-2009 16:44-0500 Body weight 94.55 kg Subha Camacho [facility] Internal Medicine Work Phone: 01-25-2009 16:44-0500 BP Diastolic 90 mm[Hg] Subha Camacho [facility] Internal Medicine Work Phone: Comment on above: Patient Position: Sitting; Cuff Location : Left Arm; Cuff Size: Large 01-25-2009 16:44-0500 BP Systolic 124 mm[Hg] Subha Camacho [facility] Internal Medicine Work Phone: Comment on above: Patient Position: Sitting; Cuff Location : Left Arm; Cuff Size: Large 01-25-2009 16:44-0500 BSA (Body Surface Area) 2.08 m2 Subha Camacho [facility] Internal Medicine Work Phone: 01-25-2009 16:44-0500 Head Circumference 0 cm Subha Camacho [facility] Internal Medicine Work Phone: 01-25-2009 16:44-0500 Height 172.72 cm Subha Camacho [facility] Internal Medicine Work Phone: 01-25-2009 16:44-0500 Pulse (Heart Rate) 80 /min Subha Camacho [facility] Internal Medicine Work Phone: Comment on above: Pattern: Regular 01-25-2009 16:44-0500 Respiratory Rate 20 /min Subha Camacho [facility] Internal Medicine Work Phone: Comment on above: Pattern: Unlabored 01-18-2009 14:06-0500 BMI (Body Mass Index) 31.69 kg/m2 Subha Camacho [facility] Internal Medicine Work Phone: 01-18-2009 14:06-0500 Body weight 94.55 kg Subha Camacho [facility] Internal Medicine Work Phone: 01-18-2009 14:06-0500 BP Diastolic 88 mm[Hg] Subha Camacho [facility] Internal Medicine Work Phone: Comment on above: Patient Position: Sitting; Cuff Location : Left Arm; Cuff Size: Large 01-18-2009 14:06-0500 BP Systolic 124 mm[Hg] Subha Camacho [facility] Internal Medicine Work Phone: Comment on above: Patient Position: Sitting; Cuff Location : Left Arm; Cuff Size: Large 01-18-2009 14:06-0500 BSA (Body Surface Area) 2.08 m2 Subha Camacho [facility] Internal Medicine Work Phone: 01-18-2009 14:06-0500 Head Circumference 0 cm Subha Camacho [facility] Internal Medicine Work Phone: 01-18-2009 14:06-0500 Height 172.72 cm Subha Camacho [facility] Internal Medicine Work Phone: 01-18-2009 14:06-0500 Pulse (Heart Rate) 60 /min Subha Camacho [facility] Internal Medicine Work Phone: Comment on above: Pattern: Regular 01-18-2009 14:06-0500 Respiratory Rate 20 /min Subha Camacho [facility] Internal Medicine Work Phone: Comment on above: Pattern: Unlabored Encounters Encounter Date Encounter Type Care Provider Facility Start: 12-07-2023 End: 12-07-2023 Telephone encounter Patrice Edwards MD Work Phone: Urology Comment on above: Patient Update Start: 12-03-2023 End: 12-03-2023 Telephone encounter Patrice Edwards MD Work Phone: [facility] Comment on above: Appointment Start: 12-03-2023 End: 12-03-2023 ambulatory PATRICE EDWARDS JR Facility:[facility] Start: 11-27-2023 End: 11-27-2023 ambulatory LILIAN Fall [facility] Facility:[facility] Start: 11-13-2023 End: 11-13-2023 Admission to same day surgery center Patrice Edwards MD Work Phone: [facility] Comment on above: schedule surgery Start: 11-13-2023 End: 11-13-2023 ambulatory Patrice Edwards Jr., MD Work Phone: [facility] Start: 11-13-2023 End: 11-13-2023 Telephone encounter Patrice Edwards MD Work Phone: Urology Comment on above: Schedule Surgery Start: 11-08-2023 End: 11-08-2023 Patient encounter procedure Patrice Edwards MD Work Phone: [facility] Comment on above: Kidney stones [N20.0 ] (Primary Dx) Start: 11-08-2023 End: 11-08-2023 ambulatory PATRICE EDWARDS JR Facility:[facility] Start: 11-01-2023 End: 11-01-2023 ambulatory LILIAN Eufemia [facility] Facility:[facility] Start: 11-01-2023 End: 11-01-2023 Patient encounter procedure Ida Carlton MD Work Phone: Orthopaedics Comment on above: Bilateral hip pain Start: 10-30-2023 End: 10-30-2023 ambulatory [facility] Facility:[facility] Start: 10-30-2023 End: 10-30-2023 Subsequent hospital visit by physician Haylee [facility] [place] Work Phone: Radiology Comment on above: Kidney stone [N20.0] Start: 10-25-2023 End: 10-25-2023 Patient encounter procedure Patrice Edwards MD Work Phone: [facility] Comment on above: Kidney stone (Primar y Dx); Elevated PSA; Flank pain; Encounter for observation for other suspected diseases and conditions ruled out Start: 10-25-2023 End: 10-25-2023 ambulatory PATRICE EDWARDS JR Facility:[facility] Start: 10-18-2023 End: 10-18-2023 ambulatory Justine Leary APRN.SECOND BAKER Work Phone: [facility] [place] Comment on above: ultra sound Start: 10-18-2023 End: 10-18-2023 Telephone encounter Justine Leary APRN.SECOND BAKER Work Phone: [facility] [place] Comment on above: Results (Us Kidney/b ladder ) Start: 10-15-2023 End: 10-15-2023 ambulatory [facility] Facility[facility] Start: 10-15-2023 End: 10-15-2023 Subsequent hospital visit by physician [facility] Work Phone: Radiology Comment on above: History of flank jourdan n [Z87.898] Start: 10-03-2023 Telephone encounter Justine garcia [employer]ER.SECOND BAKER Work Phone: [facility] [place] Comment on above: Results (Labs/urine ) Start: 10-02-2023 End: 10-02-2023 Patient encounter procedure Justine Leary APRN.SECOND BAKER Work Phone: [facility] [place] Comment on above: History of flank jourdan n (Primary Dx); Dark urine; Elevated PSA Start: 10-02-2023 End: 10-02-2023 ambulatory JUSTINE LEARY Facility:[facility] Start: 09-17-2023 Telephone encounter Justine garcia PIG IRON LOADER.SECOND BAKER Work Phone: [facility] [place] Comment on above: Results (Xray Hips ) Start: 09-14-2023 Telephone encounter Justine garcia APRN.CNP Work Phone: [facility] [place] Comment on above: Results (Knee Xray ) Start: 09-12-2023 End: 09-12-2023 Subsequent hospital visit by physician Haylee [facility] [place] Work Phone: Radiology Comment on above: Pain in both knees, unspecified chronicity [M25.561, M25.562] Start: 09-12-2023 End: 09-12-2023 ambulatory [facility] Facility:[facility] Start: 09-12-2023 End: 09-12-2023 Patient encounter procedure Justine Leary APRN.SECOND BAKER Work Phone: [facility] [place] Comment on above: Pain in both knees, unspecified chronicity (Primary Dx); Bilateral hip pain Start: 06-08-2023 ambulatory Ny Goldstein MA [facility] Comment on above: Population Health [facility] ([employer] workbench - AWV, Care gaps, HCC gap closure - [place] [facility]) Start: 04-12-2023 End: 04-12-2023 ambulatory Jolene Romero PTA Work Phone: [facility] Physical Therapy Comment on above: Acute pain of right shoulder (Primary Dx); Chronic neck pain Start: 04-10-2023 End: 04-10-2023 ambulatory Bel O'Derrick PT [facility] Comment on above: Acute pain of right shoulder (Primary Dx); Chronic neck pain Start: 04-04-2023 End: 04-04-2023 ambulatory Bel O'Derrick PT [facility] Comment on above: Numbness of hand (Pr imary Dx); DDD (degenerative disc disease), cervical Start: 01-15-2023 End: 01-15-2023 ambulatory JUSTINE LEARY Facility:[facility] Start: 01-15-2023 End: 01-15-2023 Patient encounter procedure Jasmina Reyes PA-C Work Phone: Orthopaedics Comment on above: Bursitis of right sh oulder (Primary Dx); Acute pain of right shoulder; Chronic neck pain; Numbness of hand; DDD (degenerative disc disease), cervical Start: 11-23-2022 Telephone encounter Justine Denny nhof [employer] LOADER.SECOND BAKER Work Phone: [facility] [place] Comment on above: Results (Labs and Xr ay ); Orders Start: 11-20-2022 End: 11-20-2022 Subsequent hospital visit by physician Haylee [facility] Work Phone: Radiology Comment on above: Acute pain of right shoulder [M25.511] Start: 11-20-2022 End: 11-20-2022 Patient encounter procedure Justine Leary [employer] LOADER.SECOND BAKER Work Phone: [facility] [place] Comment on above: Medicare annual well ness visit, initial (Primary Dx); Chronic neck pain; Acute pain of right shoulder; Hyperlipidemia with target LDL less than 100; Elevated PSA Start: 10-10-2021 Telephone encounter Justine garcia [employer] LOADER.SECOND BAKER Work Phone: [facility] [place] Comment on above: Results (Cologuard) Start: 10-01-2021 Chart abstracting Justine Allen of [employer]ER.SECOND BAKER Work Phone: [facility] [place] Comment on above: Abstract; external d ocument Start: 09-29-2021 Telephone encounter Lilian williamson MD Work Phone: [facility] [place] Comment on above: Results (Labs ([facility] ) Start: 09-22-2021 End: 09-22-2021 Patient encounter procedure Justine Leary APRN.SECOND BAKER Work Phone: [facility] [place] Comment on above: Nonintractable [...] 06-11-2013 Patient encounter procedure Subha Camacho [facility] Internal Medicine Start: 09-12-2012 End: 09-13-2012 Patient encounter procedure Subha Camacho [facility] Internal Medicine Start: 07-08-2012 End: 07-08-2012 Patient encounter procedure Subha Camacho [facility] Internal Medicine Start: 03-25-2012 End: 03-25-2012 Patient encounter procedure Subha Camacho [facility] Internal Medicine Start: 01-08-2012 End: 01-08-2012 Patient encounter procedure Subha Camacho [facility] Internal Medicine Start: 11-08-2011 End: 11-09-2011 Patient encounter procedure Subha Camacho [facility] Internal Medicine Start: 09-06-2011 End: 09-06-2011 Patient encounter procedure Subha Camacho [facility] Internal Medicine Start: 08-28-2011 End: 08-28-2011 Lab Order Subha Mireille [facility] [employer] al Medicine Start: 05-04-2011 End: 05-04-2011 Patient encounter procedure Subhacrow Marteon [facility] Internal Medicine Start: 04-27-2011 End: 04-27-2011 Patient encounter procedure Subha Camacho [facility] Internal Medicine Start: 04-05-2011 End: 04-05-2011 Patient encounter procedure Subha Marteon [facility] Internal Medicine Start: 10-19-2010 End: 10-19-2010 Patient encounter procedure Subhacrow Marteon [facility] Medicine Start: 10-03-2010 End: 10-03-2010 Patient encounter procedure Subhacrow Camacho [facility] Internal Medicine Start: 09-16-2010 End: 09-16-2010 Patient encounter procedure Subhacrow Marteon [facility] Medicine Start: 09-12-2010 End: 09-12-2010 Annotation/Addendum Subha Camacho [facility] [employer] Medicine Start: 09-08-2010 End: 09-08-2010 Office outpatient visit 15 minutes Subha Camacho [facility] Internal Medicine Start: 08-15-2010 End: 08-15-2010 Office outpatient visit 15 minutes Subha Camacho [facility] Internal Medicine Start: 08-05-2010 End: 08-05-2010 Phone Encounter Subha Mireille [facility] [employer] Medicine Start: 08-03-2010 End: 08-03-2010 Office outpatient visit 25 minutes Subha Camacho [facility] Internal Medicine Start: 05-30-2010 End: 05-30-2010 Patient encounter procedure Subha Mireille [facility] Start: 05-23-2010 End: 05-23-2010 Erroneous Entry Subha Caamcho [facility] [employer] Medicine Start: 01-31-2010 End: 01-31-2010 Patient encounter procedure Subha Camacho [facility] Internal Medicine Start: 10-13-2009 End: 10-14-2009 Patient encounter procedure Subha Camacho [facility] Start: 06-09-2009 End: 06-09-2009 Patient encounter procedure Subha Camacho [facility] Internal Medicine Start: 01-25-2009 End: 01-25-2009 Office outpatient visit 15 minutes Subha Camacho [facility] Internal Medicine Start: 01-18-2009 End: 01-18-2009 Patient encounter procedure Subha Camacho [facility] Internal Medicine Start: 01-18-2009 End: 01-18-2009 Historical Summary [facility]ha Cam[facility] [employer] [facility] Procedures Date Procedure Procedure Detail Performing Clinician Start: 11-08-2023 Urnls dip stick/tablet rgnt auto w/o microscopy Patrice Edwards MD Work Phone: Start: 10-30-2023 Ct abdomen & pelvis w/o contrast material Patrice Edwards MD Work Phone: Start: 10-25-2023 Urnls dip stick/tablet rgnt auto w/o microscopy Patrice Edwards MD Work Phone: Start: 10-02-2023 Urnls dip stick/tablet rgnt auto w/o microscopy Justine Leary APRN.SECOND BAKER Work Phone: Start: 09-12-2023 Radex hips bilateral with pelvis minimum 5 views Justine Leary APRN.SECOND BAKER Work Phone: Start: 11-21-2022 Lipid 1996 panel - Serum or Plasma Justine Leary APRN.SECOND BAKER Work Phone: Start: 11-20-2022 Radex spine cervical 4 or 5 views Justine Leary APRN.SECOND BAKER Work Phone: Start: 09-22-2021 [employer]FI[employer]ER-BION[employer]ander (f. [employer]) COVID-19 VACCINE, AGE 12+ YR (LOZANO TOP) Justine Leary APRN.SECOND BAKER Work Phone: Start: 09-22-2021 Adult depression screening assessment Justine eLary TARAS.EUSEBIO Work Phone: Start: 09-28-2020 Lipid 1996 panel - Serum or Plasma Justine Leary APRN.CNP Work Phone: Start: 11-02-2014 End: 11-02-2014 Lower Ext/Jt Only/W Contrast Comments: See Note; NOTES: [facility] Imaging Services [address] [place] [address] MRI Report MR#: [id number] Acct: [id number] Name: BONNIE MARTINEZ Rep #: [id number] : 1955 M 58 From: Max Espinoza MD PCP: Subha Camacho DO Status: REG CLI Study: Lower Ext/Jt Only/W Contrast Date of Exam: 11/02/14 Exam# [id number] Ordering Dr: Bonnie Sanders MD STUDY: MRI [...] the femoral head neck junction, with 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 [...] FACR at 13:00 EDT , Service support [phone], CC: Bonnie Sanders MD; Subha Camacho DO Front Desk: Christel Rush Work Phone: Start: 11-02-2014 End: 11-02-2014 Arthrogram Hip w/ MRI Comments: See Note; NOTES: [facility] Imaging Services [address] [place] [address] Radiology Report MR#: [id number] Acct: [id number] Name: JUANBONNIE Spann Rep #: [id number] : 1955 M 58 From: Rhett Randall MD PCP: Subha Camacho DO Status: [facility] CL Study: Arthrogram Hip w/ MRI Date of Exam: 11/02/14 Exam# [id number] Ordering Dr: Bonnie Sanders MD CLINICAL HISTORY: [...] Rhett Randall MD at 11:38 EDT Tel [phone], Service support [phone], RAD/Arthrogram Hip w/ MRI IMPRESSION: Successful right hip arthrogram with injection of 12 cc of MRI contrast material. Electronically Signed: Rhett Randall MD at 11:38 EDT Tel [phone], Service support [phone], CC: Bonnie Sanders MD; Subha Camacho DO Front Desk: Christel Rush Work Phone: Start: 10-30-2014 End: 10-30-2014 Lower Ext/Jt Only/W Contrast Comments: See Note; NOTES: [facility] Imaging Services [address] [place] [address] MRI Report MR#: [id number] Acct: [id number] Name: BONNIE MARTINEZ Maria Ines Rep #: [id number] : 1955 58 From: Addison Paige MD PCP: Subha Camacho DO Status: REG CLI Study: Lower Ext/Jt Only/W Contrast Date of Exam: 10/30/14 Exam# [id number] Ordering Dr: Bonnie Sanders MD STUDY: MRI [...] MD at 13:58 EDT , Service support [phone], CC: Bonnie Sanders MD; Subah Camacho DO Front Desk: Signed Malia Renee [employer] Work Phone: Start: 10-30-2014 End: 10-30-2014 Arthrogram Hip w/ MRI Comments: See Note; NOTES: [facility] Imaging Services [address] [place] [address] Radiology Report MR#: [id number] Acct: [id number] Name: BONNIE MARTINEZ Rep #: [id number] : 1955 M 58 From: Diana Gallardo MD PCP: Subha Camacho DO Status: REG CLI Study: Arthrogram Hip w/ MRI Date of Exam: 10/30/14 Exam# [id number] Ordering Dr: Bonnie Sanders MD PROCEDURE: ARTHROGRAM [...] at 13:44 EDT Tel , Service support [phone], RAD/Arthrogram Hip w/ MRI IMPRESSION: There is no evidence of intra-articular loose bodies. Electronically Signed: Emil Gallardo MD at 13:44 EDT Tel , Service support [phone], CC: Bonnie Sanders MD; Subha Camacho DO Front Desk: Signed Malia Rush Work Phone: Start: 06-11-2013 End: 06-11-2013 Ecg routine ecg w/least 12 lds w/i&r [MEASUREMENTS ANALYSIS] Date of Test: 06/11/2013 16:34:23; Heart Rate: 61; IA Interval: 152; QRS: 106; QT Interval: 398; Corrected QT Interval (QTc): 399; P Wave [place]: 29; QRS Wave [place]: -15; T Wave [place]: -1; Blood Pressure: 132/84 [ECG DIAGNOSTIC STATEMENTS] Date of Test: 06/11/2013 16:34:23; Summary: Sinus Rhythm WITHIN NORMAL LIMITS Subha Camacho Work Phone: Comment on above: nsr no acute Plan of Treatment Date Care Activity Detail Author Start: 2032 RSV Vaccine (1 - 1-d ose 75+ series) RSV Vaccine (1 - 1-dose 75+ series) [facility] Start: 10-01-2028 Prostate specific antigen measurement Prostate Cancer Screening Discussion [facility] Start: 11-22-2027 Lipid 1996 panel - Serum or Plasma Lipid Screening [facility] Start: 11-22-2027 Lipid panel Lipid Screening [facility] Start: 11-22-2027 Prostate Cancer Screening Discussion Prostate Cancer Screening Discussion [facility] Start: 11-22-2027 Prostate specific antigen measurement Prostate Cancer Screening Discussion [facility] Start: 06-28-2027 Urine microalbumin profile [facility] Start: 10-01-2026 Diabetes Screening Diabetes Screenin g [facility] Start: 11-21-2025 Diabetes Screening Diabetes Screenin g [facility] Start: 09-28-2025 Lipid 1996 panel - Serum or Plasma Lipid Screening [facility] Start: 09-28-2025 LIPID SCREEN LIPID SCREEN [facility] Start: 11-05-2024 PROSTATE CANCER SCREENING DISCUSSION PROSTATE CANCER SCREENING DISCUSSION [facility] Start: 10-03-2024 COLOGUARD (FIT-DNA) COLOGUARD (FIT-D NA) [facility] Start: 10-03-2024 Colorectal Cancer Screening Colorectal Cancer Screening [facility] Start: 10-03-2024 Screening for malign ant neoplasm of colon [facility] Start: 10-01-2024 Annual PCP Team [employer] Disease Visit Annual PCP Team Chronic Disease Visit [facility] Start: 09-11-2024 Annual PCP Team Electrician [employer] Disease Visit Annual PCP Team Chronic Disease Visit [facility] Start: 09-11-2024 BP Controlled (<130/80) BP Controlle d (<130/80) [facility] Start: 02-06-2024 End: 02-06-2024 Patient encounter procedure 02/06/2024 10:20 AM EST Appointment [facility] [address] [place] [address] Encounter for observation for other suspected diseases and conditions ruled out [Z03.89] [facility] Comment on above: Encounter for observ ation for other suspected diseases and conditions ruled out [Z03.89] Start: 01-09-2024 End: 01-09-2024 Patient encounter procedure 01/09/2024 2:00 PM EST Office Visit [facility] [address] [place] [address] [phone] Patrice Edwards Jr., MD [address] [place], [place] [phone] post op, kub prior [facility] Comment on above: post op, kub prior Start: 12-10-2023 End: 01-01-2025 XR Abdomen Supine and Upright XR ABDOMEN 1V SUPINE Radiology Routine Kidney stone Expected: 12/10/2023, Expires: 01/01/2025 [facility] Work Phone: Comment on above: Expected: 12/10/2023 , Expires: 01/01/2025 Start: 12-03-2023 End: 12-03-2023 Lithotripsy [employer]orp shock wave EXTRACORPOREAL SHOCKWAVE LITHOTRIPSY UNILATERAL Calculus, renal 12/03/2023 10:18 AM EDT [facility] Start: 11-21-2023 Annual PCP Team Electrician [employer] Disease Visit Annual PCP Team Chronic Disease Visit [facility] Start: 11-21-2023 BP Controlled (<130/80) BP Controlle d (<130/80) [facility] Start: 11-08-2023 End: 11-08-2023 Patient encounter procedure 11/08/2023 10:00 AM EDT Office Visit [facility] [address] [place] [phone] Patrice Edwards Jr., MD [address] [place], [place] [phone] follow up, CT and KUB prior [facility] Comment on above: follow up, CT and KU B prior Start: 11-06-2023 End: 11-06-2023 Patient encounter procedure 11/06/2023 4:00 PM EDT Office Visit Urology [address] [place] [address] Paulino Turner PA-C [address] [place] [address] Elevated PSA [R97.20] Urology Comment on above: Elevated PSA [R97.20 ] Start: 11-01-2023 End: 11-01-2023 Patient encounter procedure 11/01/2023 11:00 AM EDT Office Visit Orthopaedics [address] [address] Ida Carlton MD [address] [address] R/S from 10/15 Orthopaedics Comment on above: R/S from 10/15 Start: 10-30-2023 End: 10-30-2023 Patient encounter procedure 10/30/2023 11:40 AM EDT Appointment Cat Scan [address] [place] [address] Kidney stone [N20.0]; Flank pain [R10.9] Cat [facility] Comment on above: Kidney stone [N20.0] ; Flank pain [R10.9] Start: 10-21-2023 Covid-19 Vaccine ( season) Covid-19 Vaccine ( season) [facility] Start: 10-21-2023 Covid-19 Vaccine ( season) Covid-19 Vaccine ( season) [facility] Start: 10-21-2023 Influenza vaccination [facility] Start: 10-16-2023 End: 10-16-2023 Patient encounter procedure 10/16/2023 11:20 AM EDT Office Visit Orthopaedics [address] [address] Ida Carlton MD [address] [phone] Bilateral hip pain [M25.551, M25.552] Orthopaedics Comment on above: Bilateral hip pain [ M25.551, M25.552] Start: 10-15-2023 End: 10-15-2023 Patient encounter procedure 10/15/2023 10:00 AM EDT Appointment Radiology [address] [place] [address] Flank pain [R10.9]; Dark urine [R82.998] Radiology Comment on above: Flank pain [R10.9]; Dark urine [R82.998] Start: 09-29-2023 DIABETES SCREEN DIABETES SCREEN [facility] Start: 09-29-2023 Diabetes Screening Diabetes Screenin g [facility] Start: 02-19-2023 Advance Directive Discussion Advance Directive Discussion [facility] Start: 02-19-2023 Behavioral Health Screening Behavioral Health Screening [facility] Start: 02-19-2023 Depression Assessment Depression Ass essment [facility] Start: 2022 Advance Directive Discussion Advance Directive Discussion [facility] Start: 2022 Pneumococcal Vaccine : 65+ (1 - PCV) Pneumococcal Vaccine: 65+ (1 - PCV) [facility] Start: 2022 Pneumococcal Vaccine : 65+ (1 of 1 - PCV) Pneumococcal Vaccine: 65+ (1 of 1 - PCV) [facility] Start: 11-20-2022 End: 01-20-2023 Comprehensive metabolic 2000 panel - Serum or Plasma COMP METABOLIC PANEL Lab Routine Medicare annual wellness visit, initial Expected: 11/20/2022, Expires: 01/20/2023 [facility] Work Phone: Comment on above: Expected: 11/20/2022 , Expires: 01/20/2023 Start: 11-20-2022 End: 01-20-2023 Lipid 1996 panel - Serum or Plasma LIPID PANEL BASIC Lab Routine Hyperlipidemia with target LDL less than 100 Expected: 11/20/2022, Expires: 01/20/2023 [facility] Work Phone: Comment on above: Expected: 11/20/2022 , Expires: 01/20/2023 Start: 11-20-2022 End: 01-20-2023 Prostate Specific Ag Free [Mass/volume] in Serum or Plasma PSA FREE Lab Routine Elevated PSA Expected: 11/20/2022, Expires: 01/20/2023 [facility] Work Phone: Comment on above: Expected: 11/20/2022 , Expires: 01/20/2023 Start: 10-20-2022 Covid-19 Vaccine () Covid-19 Vaccine () [facility] Start: 10-20-2022 Influenza vaccination Influenza Vacc ine (#1) [facility] Start: 09-22-2022 Adult depression screening assessment DEPRESSION SCREENING [facility] Start: 09-22-2022 ANNUAL PCP TEAM DEMOGRAPHIC ANALYST HARRIET DISEASE VISIT ANNUAL PCP TEAM CHRONIC DISEASE VISIT [facility] Start: 09-22-2022 BP CONTROLLED (<130/80) BP CONTROLLE D (<130/80) [facility] Start: 01-22-2022 COVID-19 VACCINE (4 - Booster for Pfizer series) COVID-19 VACCINE (4 - Booster for Pfizer series) [facility] Start: 11-17-2021 COVID-19 VACCINE (4 - Booster for Pfizer series) COVID-19 VACCINE (4 - Booster for Pfizer series) [facility] Start: 11-17-2021 Covid-19 Vaccine (4 - Pfizer series) Covid-19 Vaccine (4 - Pfizer series) [facility] Start: 10-20-2021 Influenza vaccination INFLUENZA (#1) [facility] Start: 10-05-2021 COLORECTAL CANCER SCREENING COLORECTAL CANCER SCREENING [facility] Start: 10-05-2021 FECAL OCCULT BLOOD FECAL OCCULT BLOO D [facility] Start: 10-05-2021 Screening for malign ant neoplasm of colon Fecal Occult Blood [facility] Start: 09-22-2021 End: 11-22-2021 Comprehensive metabolic 2000 panel - Serum or Plasma COMP METABOLIC PANEL Lab Routine Nonintractable headache, unspecified chronicity pattern, unspecified headache type Expected: 09/22/2021, Expires: 11/22/2021 [facility] Work Phone: Comment on above: Expected: 09/22/2021 , Expires: 11/22/2021 Start: 09-22-2021 End: 11-22-2021 Hemoglobin A1c in Blood HGB A1C Lab Routine Screening for diabetes mellitus Expected: 09/22/2021, Expires: 11/22/2021 [facility] Work Phone: Comment on above: Expected: 09/22/2021 , Expires: 11/22/2021 Start: 09-22-2021 End: 11-22-2021 Lipid 1996 panel - Serum or Plasma LIPID PANEL BASIC Lab Routine Screening cholesterol level Expected: 09/22/2021, Expires: 11/22/2021 [facility] Work Phone: Comment on above: Expected: 09/22/2021 , Expires: 11/22/2021 Start: 09-22-2021 End: 11-22-2021 Prostate Specific Ag Free [Mass/volume] in Serum or Plasma PSA FREE Lab Routine Elevated PSA Expected: 09/22/2021, Expires: 11/22/2021 [facility] Work Phone: Comment on above: Expected: 09/22/2021 , Expires: 11/22/2021 Start: 02-19-2021 DEPRESSION ASSESSMENT DEPRESSION ASS ESSMENT [facility] Start: 2017 RSV Vaccine (1 - 1-d ose 60+ series) RSV Vaccine (1 - 1-dose 60+ series) [facility] Start: 2017 RSV Vaccine (1 - Ris k 60-74 years 1-dose series) RSV Vaccine (1 - Risk 60-74 years 1-dose series) [facility] Start: 07-18-2013 Provider Instruction s for [...] feces 1-3 FECAL OCCULT- Tubes sent home (05159) [facility] Work Phone: Start: 01-08-2012 [...] feces 1-3 FECAL OCCULT- Tubes sent home (19586) [facility] Work Phone: Start: 04-05-2011 [...] 09-16-2010 Antibody giardia lamblia GIARDIA LAMBLIA ANTIBODY (62727) [facility] Work Phone: Start: 09-16-2010 Cul bact stool aerob ic isol salmonella&shigell CHRISTOPHER CULTURE-STOOL (21726) [facility] Work Phone: Start: 09-16-2010 Leukocyte assmt feca l qual/semiquantitative LEUKOCYTE COUNT, FECAL (66875) [facility] Work Phone: Start: 09-16-2010 Culture bacterial an y source anaerobic iso&id C-DIFFICILE, STOOL (47761) [facility] Work Phone: Start: 09-08-2010 Provider Instruction s for Treatment Follow up in 1 week with KF or MEC for removal of keratosis of head, leg, and back [facility] Work Phone: Start: 08-15-2010 Ova&parasites direct smears concentration & id OVA & PARASITE DIR SMEAR (48947) [facility] Work Phone: Start: 08-15-2010 Culture bacterial an y source anaerobic iso&id C-DIFFICILE, STOOL (78435) [facility] Work Phone: Start: 08-15-2010 Provider Instruction s for Treatment [facility] Work Phone: Start: 08-03-2010 Provider Instruction s for Treatment [facility] Work Phone: Start: 08-03-2010 Blood occult peroxid ase actv qual feces 1 deter OCCULT BLOOD FECES SCREEN (77884) [facility] Work Phone: Start: 08-03-2010 Ova&parasites direct smears concentration & id OVA & PARASITE DIR SMEAR (69323) [facility] Work Phone: Start: 08-03-2010 Cul bact stool aerob ic isol salmonella&shigell CHRISTOPHER CULTURE-STOOL (67227) [facility] Work Phone: Start: 08-03-2010 Culture bacterial an y source anaerobic iso&id C-DIFFICILE, STOOL (18545) [facility] Work Phone: Start: 08-03-2010 Leukocyte assmt feca l qual/semiquantitative LEUKOCYTE COUNT, FECAL (87140) [facility] Work Phone: Start: 05-30-2010 Provider Instruction s for Treatment [facility] Work Phone: Start: 01-31-2010 Provider Instruction s for Treatment [facility] Work Phone: Start: 10-13-2009 Provider Instruction s for Treatment [facility] Work Phone: Start: 06-09-2009 Lipid panel LIPID PANEL (78500) [facility] Work Phone: Comment on above: do before next visit Start: 06-09-2009 Provider Instruction s for Treatment [facility] Work Phone: Start: 01-25-2009 Lipid panel LIPID PANEL (71383) [facility] Work Phone: Comment on above: do in 4 months Start: 01-25-2009 Provider Instruction s for Treatment [facility] Work Phone: Start: 01-18-2009 Lipid panel LIPID PANEL (20514) [facility] Work Phone: Start: 01-18-2009 Provider Instruction s for Treatment [facility] Work Phone: Start: 2002 COLOGUARD (FIT-DNA) COLOGUARD (FIT-D NA) [facility] Start: 2002 Colonoscopy COLONOSCOPY [facility] Start: [address] COLONOGRAPHY [facility] Start: 2002 Screening for malign ant neoplasm of colon [facility] Start: 2002 SIGMOIDOSCOPY SIGMOIDOSCOPY [facility] Start: 12-05-1975 Anxiety Screening Anxiety Screening [facility] Start: 12-05-1975 Depression Screening Depression Scre ening [facility] Bacteria identified in Urine by Culture URINE CULTURE Microbiology Routine History of flank pain Dark urine 10/02/2023 10:16 AM EDT [facility] COLOGUARD COLOGUARD Lab Ro utine Screening for colon cancer Ordered: 09/22/2021 [facility] Work Phone: Comment on above: Ordered: 09/22/2021 End: 11-23-2024 CT Abdomen and Pelvis WO contrast CT FLANK WO IVCON Radiology Routine Kidney stone Flank pain 1 Occurrences starting 10/25/2023 until 11/23/2024 [facility] Work Phone: Comment on above: 1 Occurrences starti ng 10/25/2023 until 11/23/2024 End: 11-23-2024 MR Prostate WO and W contrast IV MRI PROSTATE WO/W IVCON Radiology Routine Encounter for observation for other suspected diseases and conditions ruled out 1 Occurrences starting 10/25/2023 until 11/23/2024 [facility] Comment on above: 1 Occurrences starti ng 10/25/2023 until 11/23/2024 End: 12-20-2023 Radex spine cervical 4 or 5 views XR CERV OTHER 4V AP/LAT/OBL Radiology Routine Chronic neck pain 1 Occurrences starting 11/20/2022 until 12/20/2023 [facility] Work Phone: Comment on above: 1 Occurrences starti ng 11/20/2022 until 12/20/2023 Radex spine cervical 4 or 5 views XR CERV OTHER 4V AP/LAT/OBL Radiology Routine Chronic neck pain 11/20/2022 11:21 AM T [facility] Work Phone: Urinalysis complete panel - Urine URINALYSIS, WITH MICROSCOPIC Lab Routine History of flank pain Dark urine 10/02/2023 10:16 AM [facility] End: 02-14-2024 US ELBOW RIGHT US ELBOW RIGHT Radiology Routine Numbness of hand 1 Occurrences starting 01/15/2023 until 02/14/2024 [facility] Work Phone: Comment on above: 1 Occurrences starti ng 01/15/2023 until 02/14/2024 End: 10-31-2024 US Kidney - bilateral and Urinary bladder US KIDNEY/BLADDER Radiology Routine History of flank pain Dark urine 1 Occurrences starting 10/02/2023 until 10/31/2024 [facility] Work Phone: Comment on above: 1 Occurrences starti ng 10/02/2023 until 10/31/2024 US Kidney - bilatera l and Urinary bladder US KIDNEY/BLADDER Radiology Routine History of flank pain Dark urine 10/15/2023 10:25 AM T [facility] Work Phone: End: 02-14-2024 Us lmtd joint/oth nonvasc xtr strux r-t w/img US ELBOW LEFT Radiology Routine Numbness of hand 1 Occurrences starting 01/15/2023 until 02/14/2024 [facility] Work Phone: Comment on above: 1 Occurrences starti ng 01/15/2023 until 02/14/2024 End: 11-23-2024 XR Abdomen Supine and Upright XR ABDOMEN 1V SUPINE Radiology Routine Kidney stone Flank pain 1 Occurrences starting 10/25/2023 until 11/23/2024 [facility] Comment on above: 1 Occurrences starti ng 10/25/2023 until 11/23/2024 XR Abdomen Supine an d Upright XR ABDOMEN 1V SUPINE Radiology Routine Kidney stone Flank pain 10/30/2023 11:35 AM EDT [facility] Work Phone: End: 10-11-2024 XR HIP BILATERAL 5V PEL/AP/LAT EACH HIP XR HIP BILATERAL 5V PEL/AP/LAT EACH HIP Radiology Routine Bilateral hip pain 1 Occurrences starting 09/12/2023 until 10/11/2024 [facility] Comment on above: 1 Occurrences starti ng 09/12/2023 until 10/11/2024 XR HIP BILATERAL 5V PEL/AP/LAT EACH HIP XR HIP BILATERAL 5V PEL/AP/LAT EACH HIP Radiology Routine Bilateral hip pain 09/12/2023 1:56 PM EDT [facility] End: 10-11-2024 XR Knee - bilateral 4 Views XR KNEE GENERAL 4V AP BOTH/PA BOTH/LAT/MERC BILATERAL Radiology Routine Pain in both knees, unspecified chronicity 1 Occurrences starting 09/12/2023 until 10/11/2024 [facility] Work Phone: Comment on above: 1 Occurrences starti ng 09/12/2023 until 10/11/2024 XR Knee - bilateral 4 Views XR KNEE GENERAL 4V AP BOTH/PA BOTH/LAT/MERC BILATERAL Radiology Routine Pain in both knees, unspecified chronicity 09/12/2023 1:56 PM EDT [facility] End: 12-20-2023 XR SHOULDER GENERAL 3V OR MORE AP/TRUE AP/OTHER RIGHT XR SHOULDER GENERAL 3V OR MORE AP/TRUE AP/OTHER RIGHT Radiology Routine Acute pain of right shoulder 1 Occurrences starting 11/20/2022 until 12/20/2023 [facility] Work Phone: Comment on above: 1 Occurrences starti ng 11/20/2022 until 12/20/2023 XR SHOULDER GENERAL 3V OR MORE AP/TRUE AP/OTHER RIGHT XR SHOULDER GENERAL 3V OR MORE AP/TRUE AP/OTHER RIGHT Radiology Routine Acute pain of right shoulder 11/20/2022 11:21 AM EDT [facility] Work Phone: [facility] Work [...] Phone: [facility] Work Phone: [facility] Immunizations Immunization Date Immunization Notes Care Provider Fa [facility] 09-22-2021 COVID-19 vaccine, ag e 12+ yr (PFIZER-BIONTWander (f. [employer]) - [facility]) Justine Leary PIG IRON LOADER.SECOND BAKER Work Phone: [facility] 11-23-2020 influenza, injectabl e, quadrivalent, contains preservative Justine Leary PIG IRON LOADER.SECOND BAKER Work Phone: [facility] Work Phone: 11-23-2020 zoster vaccine recombinant Justine Samuelhof PIG IRON LOADER.SECOND BAKER Work Phone: [facility] Work Phone: 11-23-2020 influenza virus vaccine, unspecified formulation Justine Leary PIG IRON LOADER.SECOND BAKER Work Phone: [facility] 09-23-2020 zoster vaccine recombinant Justine Tannhof PIG IRON LOADER.SECOND BAKER Work Phone: [facility] 11-05-2019 influenza, injectabl e, quadrivalent, contains preservative Justine Tannhof PIG IRON LOADER.SECOND BAKER Work Phone: [facility] 11-21-2018 influenza, seasonal, injectable Justine Tannhof PIG IRON LOADER.SECOND BAKER Work Phone: [facility] 06-27-2017 tetanus toxoid, redu jose ramon diphtheria toxoid, and acellular pertussis vaccine, adsorbed Justine Lizziehof PIG IRON LOADER.SECOND BAKER Work Phone: [facility] 11-21-2016 influenza, seasonal, injectable Justine Tannhof PIG IRON LOADER.SECOND BAKER Work Phone: [facility] 12-01-2015 influenza, seasonal, injectable Justine Tannhof PIG IRON LOADER.SECOND BAKER Work Phone: [facility] 09-01-2008 tetanus and diphther ia toxoids, adsorbed, preservative free, for adult use (2 Lf of tetanus toxoid and 2 Lf of diphtheria toxoid) Justine Samuelhof PIG IRON LOADER.SECOND BAKER Work Phone: [facility] Payers Date Payer Category Payer Medicare MEDICARE MEDICAR E A AND B [id number] 2022-Present [phone] [place] [address] Medicare [id number] 2022 Private Health Insurance [facility] AARP SUPPLEMENT [id number] 2022-Present [phone] [address] [place] [address] Indemnity [id number] 2022 Medicare [id number] 2022 Unknown [id number] 2021 Unknown 2021 Unknown DAISY SEYMOUR O DAVION [id number] 2021-Present [phone] [address] [place] [address] [facility] [id number] Social History Date Type Detail Facility Start: 11-16-2022 End: 10-25-2023 Alcohol Use Alcohol Use [facility] Work Phone: Comment on above: Occasional alcohol u se 1 tea QD , heterosexua l Electrition Tobacco use: Tobacco use: [facility] Work Phone: Comment on above: 05/04/11 Start: 06-01-2017 End: 11-20-2022 Tobacco smoking status NHIS Never smoked tobacco [facility] Start: 09-22-2021 End: 12-03-2023 Alcohol intake Current drinker of alcohol (finding) [facility] Start: 11-04-2019 History SDOH Alcohol Frequency 3 [facility] Start: 11-04-2019 End: 04-19-2021 History SDOH Alcohol Std Drinks 1 [facility] Start: 11-04-2019 End: 04-19-2021 History SDOH Alcohol Binge 2 [facility] Start: 12-03-2019 History SDOH Social Connections Phone 98 [facility] Start: 11-04-2019 History SDOH Social Connections Living 4 [facility] Start: 12-03-2019 History SDOH Physica l Activity DPW 6 [facility] Start: 11-03-2019 Education 12 [facility] Start: 1955 Sex Assigned At Male [facility] Start: 09-12-2021 End: 09-22-2021 Exposure to SARS-CoV-2 (event) Not sure [facility] Start: 06-01-2017 End: 11-20-2022 Tobacco use and exposure Smokeless tobacco non-user [facility] Start: 11-16-2022 End: 10-25-2023 [facility] All Def Digitalities [facility] Has the [employer], [place] Grand Prix Championship, or water [employer] threatened to shut off services in your home in past 12Mo No [facility] Frequency of Social Gatherings with Friends and Family Not on file [facility] Are you now , , , , never or living with a partner? [facility] How often to you hav e a drink containing alcohol? 2-4 times a month [facility] How many standard drinks containing alcohol do you have on a typical day? 1 or 2 [facility] How often do you hav e 6 or more drinks on 1 occasion? Never [facility] Do you feel stress - tense, restless, nervous, or anxious, or unable to sleep at night because your mind is troubled all the time - these days [OSQ] Not at all [facility] (I/We) worried wheth er (my/our) food would run out before (I/we) got money to buy more. Never true [facility] Start: 11-03-2019 Gender identity Identifies as male gender (finding) [facility] Start: 11-03-2019 Sexual orientation Choose not to disclose [facility] Clinical Notes 09-22-2021 to 12-07-2023 Telephone Encounter - Steven Lange RN - 12/07/2023 1:03 PM EDTTelephone Encounter - Steven Lange RN - 12/07/2023 1:03 PM EDTTelephone Encounter - Sue Griffin - 12/03/2023 2:01 PM EDT Note Date & Type Note Facility 12-07-2023 Telephone encounter Note Spoke with pts spouse and informed of the message below. Steven Lange RN [facility] 12-07-2023 Miscellaneous Notes Spoke with pts [...] Suzanne Portillo RN documented in this encounter [facility] 12-07-2023 Telephone encounter Note Called patient's and left VM to call office back. Suzanne Portillo RN T [facility] Work Phone: 12-07-2023 Telephone encounter Note Sent to pharmacy [facility] 12-07-2023 Telephone encounter Note Patient's is [...] be sent to provider. Suzanne Portillo RN [facility] 12-03-2023 Telephone encounter Note Spoke to patient Patient is scheduled January 09, 2024 at 2pm, [facility], kub prior Patient agrees and understands Thank amy Rogers [facility] 12-03-2023 Miscellaneous Notes Spoke to patient Patient is scheduled January 09, 2024 at 2pm, [place] location, kub prior Patient agrees and understands Thank you Sue [facility] or 12/03/23 Fu with me 4 weeks Kub prior ordered documented in this encounter [facility] 12-03-2023 Note HNO ID: [id number] Author: SAMINA MCKEON APRN.GLUELINE WORKER Service: Anesthesiology Author Type: Nurse Riprap Placing Supervisor Type: Anesthesia Procedure Notes Filed: 12/03/2023 10:28 Note Text: ANESTHESIOLOGY PROCEDURE NOTE Airway General Information Procedure Start Time/Medication Administration: 12/03/2023 10:22 AM Procedure End Time: 12/03/2023 10:22 AM Patient location during procedure: OR Timeout Performed Pre-procedure: timeout performed Consent Obtained: Yes Patient identity confirmed: arm band Staffing GLUELINE WORKER: Samina Mckeon APRN.GLUELINE WORKER Performed by: GLUELINE WORKER Indications and Patient Condition Indications for airway management: anesthesia Preoxygenated: yes anesthesia circuit Patient position: sniffing Method: asleep Final Airway Details Final airway type: supraglottic airway Number of attempts at approach: 1 Final Supraglottic Airway: i-gel Size 5 Seal Adequate: yes SIGNATURE: Samina Mckeon APRN.GLUELINE WORKER PATIENT NAME: Bonnie Martinez DATE: December 03, 2023 TIME: 10:28 AM CSN: [id number] [facility] 12-03-2023 Telephone encounter Note [facility] or 12/03/23 Fu with me 4 weeks Kub prior ordered [facility] 11-13-2023 Telephone encounter Note Spoke with pt's and surgery planned for 12/03/23. Joyce Marley [facility] 09-24-2024 Miscellaneous Notes Spoke with pt's and surgery planned for 12/03/23. Joyce Marley documented in this encounter [facility] 11-13-2023 Telephone encounter Note Pt's notified to check pharmacy. Joyce Marley [facility] 11-13-2023 Miscellaneous Notes Pt's notified to check pharmacy. Joyce Marley sent Spoke with pt's and surgery planned for 12/03/[address] Edwards. Pt having bouts of nausea and requests a prescription gets sent to his pharmacy- [facility] in [place]. Please advise. Joyce Villavicencio Pt called looking to schedule surgery quickly due to pt discomfort. stated that Pt is to have ESWL scheduled. Tahira garnica MA documented in this encounter [facility] 11-13-2023 Telephone encounter Note sent [facility] 11-13-2023 Telephone encounter Note Spoke with pt's and surgery planned for 12/03/[address] Edwards. Pt having bouts of nausea and requests a prescription gets sent to his pharmacy- [facility] in [place]. Please advise. Joyce Villavicencio [facility] 11-13-2023 Telephone encounter Note Pt called looking to schedule surgery quickly due to pt discomfort. stated that Pt is to have ESWL scheduled. Tahira garnica MA [facility] 11-08-2023 Note HNO ID: [id number] Author: PATRICE EDWARDS JR, MD Service: ? [...] (no units) Date Value 10/02/2023 Negative Specific [place], Ur (no units) Date Value 10/02/2023 1.013 [...] Patrice Edwards Jr, MD 11/08/2023 [facility] 11-08-2023 History of Present illness [...] do laser litho or pcnl. [facility] LAB: Creatinine Date Value Ref Range Status 10/02/2023 1.25 (H) 0.73 - 1.22 mg/dL Final PSA (ng/mL) Date Value 10/02/2023 7.55 11/21/2022 6.61 PSA Screening (ng/mL) Date Value 11/06/2019 4.56 Glucose, Urine (no units) Date Value 10/02/2023 Negative Bilirubin, Urine (no units) Date Value 10/02/2023 Negative Ketones, Urine (no units) Date Value 10/02/2023 Negative Specific [place], Ur (no units) Date Value 10/02/2023 1.013 [...] Jr, MD 11/08/2023 documented in this encounter [facility] 11-01-2023 Note HNO ID: [id number] Author: IDA CARLTON MD Service: ? Author [...] the date of the service which included [id number] patient care, performing a medically appropriate examination, counseling and educating the patient/family/caregiver, independently interpreting results (not separately reported), and communicating results to the patient/family/caregiver. Ida Carlton MD Orthopaedic Surgery [facility] 11-01-2023 History of Present illness Narrative Orthopaedic [...] the date of the service which included [id number] patient care, performing a medically appropriate examination, counseling and educating the patient/family/caregiver, independently interpreting results (not separately reported), and communicating results to the patient/family/caregiver. Ida Carlton MD Orthopaedic Surgery documented in this encounter [facility] 10-30-2023 History of Present illness [...] PATIENT PRESENTS WITH AN IMPLANTABLE OR ATTACHED AEROPLANE PILOT: No RADIOLOGY DEPARTMENT: CT; Exam(s) Completed: Flank Study PERIPHERAL IV DATA: Not applicable SIGNED BY: RT Trupti(Gold) October 30, 2023 1:55 PM documented in this encounter [facility] 10-30-2023 Note HNO ID: [id number] Author: MYRNA RAPP RT (R) Service: ? Author Type: Customer Care Consultant Type: Progress Notes Filed: 10/30/2023 13:55 Note [...] PATIENT PRESENTS WITH AN IMPLANTABLE OR ATTACHED AEROPLANE PILOT: No RADIOLOGY DEPARTMENT: CT; Exam(s) Completed: Flank Study PERIPHERAL IV DATA: Not applicable SIGNED BY: RT Trupti(Gold) October 30, 2023 1:55 PM [facility] 10-30-2023 History of Present illness Narrative Radiology [...] PATIENT PRESENTS WITH AN IMPLANTABLE OR ATTACHED AEROPLANE PILOT: No RADIOLOGY DEPARTMENT: General X-ray: Exam(s) Completed: Abdomen X-Ray: Abdomen PERIPHERAL IV DATA: Not applicable SIGNED BY: RT Huyen(Gold) October 30, 2023 11:24 AM documented in this encounter [facility] 10-30-2023 Note HNO ID: [id number] Author: JONNIE JORDAN RT(R) Service: ? Author Type: Customer Care Consultant Type: Progress Notes Filed: 10/30/2023 11:35 Note [...] PATIENT PRESENTS WITH AN IMPLANTABLE OR ATTACHED AEROPLANE PILOT: No RADIOLOGY DEPARTMENT: General X-ray: Exam(s) Completed: Abdomen X-Ray: Abdomen PERIPHERAL IV DATA: Not applicable SIGNED BY: RT Huyen(Gold) October 30, 2023 11:24 AM [facility] 10-26-2023 Note HNO ID: [id number] Author: PATRICE EDWARDS JR, MD Service: ? [...] (no units) Date Value 10/02/2023 Negative Specific [place], Ur (no units) Date Value 10/02/2023 1.013 [...] prostate Patrice Edwards Jr, MD [facility] 10-26-2023 History of Present illness [...] (no units) Date Value 10/02/2023 Negative Specific [place], Ur (no units) Date Value 10/02/2023 1.013 [...] Edwards Jr, MD documented in this encounter [facility] 10-18-2023 Telephone encounter Note Patient returned call and given provider's message below and patient verbalized understanding. Edouard Vivas RN [facility] 10-18-2023 Miscellaneous Notes Patient returned call [...] has any questions. Thank you. Justine Leary APRN.SECOND BAKER documented in this encounter [facility] 10-18-2023 Telephone encounter Note TC to pt. LM to call office, ask for triage nurse to get results. Jesse Gonzalez LPN [facility] 10-18-2023 Telephone encounter Note See phone note Justine Leary APRN.SECOND BAKER [facility] 10-18-2023 Miscellaneous Notes See phone note Justine Leary APRN.CNP See [employer] message documented in this encounter [facility] 10-18-2023 Telephone encounter Note Can you [...] any questions. Thank you. Justine Leary APRN.CNP [facility] 10-18-2023 Telephone encounter Note See [employer] message [facility] 10-15-2023 History of Present illness Narrative [...] PATIENT PRESENTS WITH AN IMPLANTABLE OR ATTACHED AEROPLANE PILOT: No RADIOLOGY DEPARTMENT: Ultrasound PERIPHERAL IV DATA: Not applicable SIGNED BY: Bel Huffman RDMS RVT October 15, 2023 2:48 PM documented in this encounter [facility] 10-15-2023 Note HNO ID: [id number] Author: BEL HUFFMAN RDMS Service: ? Author Type: Harpsichord Maker Type: Progress Notes Filed: 10/15/2023 14:49 Note Text: Radiology Service Progress Note PATIENT NAME: Bnonie Martinez DATE OF SERVICE: October 15, 2023 [...] PATIENT PRESENTS WITH AN IMPLANTABLE OR ATTACHED AEROPLANE PILOT: No RADIOLOGY DEPARTMENT: Ultrasound PERIPHERAL IV DATA: Not applicable SIGNED BY: Bel Huffman RDMS RVT October 15, 2023 2:48 PM [facility] 10-03-2023 Telephone encounter Note Consult has been placed. Justine Leary APRN.EUSEBIO [facility] 10-03-2023 Miscellaneous Notes Consult has been placed. Justine Leary APRN.SECOND BAKER Patient notified of results, verbalizes understanding of [...] Justine Leary APRN.CNP documented in this encounter [facility] 10-03-2023 Telephone encounter Note Patient notified of results, verbalizes understanding of instructions. Pt wants a consult to Urology. Please place. Jesse Gonzalez LPN [facility] 10-03-2023 Telephone encounter Note Can you [...] any questions. Thank you. Justine Leary APRN.CNP [facility] 10-02-2023 Instructions Justine Leary APRN.CNP - 10/02/2023 10:08 AM EDT Get labs and ultrasound completed Urine will be sent out for further testing Stay well hydrated Worsening symptoms contact the office. Follow up pending test results or sooner as needed. documented in this encounter [facility] 08-13-2024 History of Present illness Narrative [...] HISTORY OF Comment: right 4th and 5th injury-[facility] 1985: PAST SURGICAL HISTORY OF; Right Comment: [...] discussed and patient voices understanding. Justine Leary APRN.SECOND BAKER This note was partially generated using CanaryHop recognition system. Note was reviewed for accuracy. There may be minor misspellings or grammar miscues with Dragon voice recognition. documented in this encounter [facility] 10-02-2023 Note HNO ID: [id number] Author: JUSTINE LEARY APRN.EUSEBIO Service: ? Author [...] HISTORY OF Comment: right 4th and 5th injury-[facility] 1984: PAST SURGICAL HISTORY OF; Right Comment: [...] APRN.CNP This note was partially generated using Kumo voice recognition system. Note was reviewed for accuracy. There may be minor misspellings or grammar miscues with AdAdaptedon voice recognition. [facility] 09-17-2023 Telephone encounter Note Patient notified of results, verbalizes understanding of instructions. Jesse Gonzalez LPN [facility] 09-17-2023 Miscellaneous Notes Patient notified of [...] Justine Leary APRN.CNP documented in this encounter [facility] 09-17-2023 Telephone encounter Note Can you [...] any questions. Thank you. Justine Leary APRN.EUSEBIO [facility] 09-14-2023 Telephone encounter Note Patient notified of results, verbalizes understanding of instructions. Jesse Gonzalez LPN [facility] 09-14-2023 Miscellaneous Notes Patient notified of results, verbalizes understanding of instructions. Jesse Gonzalez LPN Can you please call the patient and let him know that I reviewed his knee x-ray results. 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 This is usually seen with children but can affect adults as well. We treat this with RICE therapy, rest, ice, compression, elevation. NSAIDs are used to reduce inflammation, he may use oafg-qrw-hwhxnbz or consider taking a once a day such as meloxicam. Physical therapy may be helpful to work on leg muscles. If no improvement I recommend a consult with orthopedics. Please let me know what he prefers regarding treatment. Thank you. Hip xray results are still pending Justine Leary APRN.EUSEBIO documented in this encounter [facility] 09-14-2023 Telephone encounter Note Can you please call the patient and let him know that I reviewed his knee x-ray results. 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 This is usually seen with children but can affect adults as well. We treat this with RICE therapy, rest, ice, compression, elevation. NSAIDs are used to reduce inflammation, he may use jamu-pyl-qsstenv or consider taking a once a day such as meloxicam. Physical therapy may be helpful to work on leg muscles. If no improvement I recommend a consult with orthopedics. Please let me know what he prefers regarding treatment. Thank you. Hip xray results are still pending Justine Leary APRN.SECOND BAKER [facility] 09-12-2023 History of Present illness Narrative [...] PATIENT PRESENTS WITH AN IMPLANTABLE OR ATTACHED AEROPLANE PILOT: No RADIOLOGY DEPARTMENT: General X-ray: Exam(s) Completed: Pelvis X-Ray: Pelvis with Hip Bilateral Lower Extremity X-Ray(s): Knee, AP / Lat / Tunne / Merchant Bilateral and Wt. Bearing PERIPHERAL IV DATA: Not applicable SIGNED BY: JULIET Marx) September 12, 2023 1:35 PM documented in this encounter [facility] 09-12-2023 Note HNO ID: [id number] Author: HELEN GARDNER RT(R) Service: Radiology Author [...] PATIENT PRESENTS WITH AN IMPLANTABLE OR ATTACHED AEROPLANE PILOT: No RADIOLOGY DEPARTMENT: General X-ray: Exam(s) Completed: Pelvis X-Ray: Pelvis with Hip Bilateral Lower Extremity X-Ray(s): Knee, AP / Lat / Tunne / Merchant Bilateral and Wt. Bearing PERIPHERAL IV DATA: Not applicable SIGNED BY: Helen Gardner RT(R) September 12, 2023 1:35 PM [facility] 09-12-2023 Instructions Justine Leary APRN.SECOND BAKER - 09/12/2023 1:23 PM EDT Get Xray completed Continue supportive care at home Be mindful with position changes Follow up pending test results documented in this encounter [facility] 09-12-2023 History of Present illness Narrative [...] has arthritis in bilateral hips, has seen [facility] in the past, has been about 20 [...] SURGICAL HISTORY OF right 4th and 5th injury-[facility] PAST SURGICAL HISTORY OF Right 1985 right [...] APRN.EUSEBIO This note was partially generated using Kumo voice recognition system. Note was reviewed for accuracy. There may be minor misspellings or grammar miscues with Kumo voice recognition. documented in this encounter [facility] 09-12-2023 Note HNO ID: [id number] Author: JUSTINE LEARY APRN.EUSEBIO Service: ? 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 Similar to [place]-Schlatter's disease. Nontender with palpation, no edema noted. [...] discussed and patient voices understanding. Justine Leary APRN.SECOND BAKER This note was partially generated using Kumo voice recognition system. Note was reviewed for accuracy. There may be minor misspellings or grammar miscues with Kumo voice recognition. [facility] 06-08-2023 Note HNO ID: [id number] Author: [place] GOLDSTEIN MA Service: ? Author Type: Diagnostic Technician Type: Progress Notes Filed: 06/08/2023 09:19 Note Text: POPULATION HEALTH NAVIGATION OUTREACH Action/FYI Patient is on [employer] list for below and needs appointment to address: RSV Vaccine(1 - 1-dose 60+ series) Covid-19 Vaccine(2022-24 season) Pneumococcal Vaccine: 65+(1 of 1 - PCV) Advance Directive Discussion Behavioral Health Screening Hemoglobin A1C (%) Date Value 09/28/2020 5.6 Patient due for: Medicare Annual Wellness Visit - 11-20-22 Advance Directives Left message for patient to call back. Sent [employer] message. Reason for Outreach Care Gap/HCC or Scheduling Wellness Visits Care Gaps due: Medicare Annual Wellness Visit Advance Directives Patient Contacted: Unable or unnecessary to reach patient: Left message MyChart message sent HCC related Navigation Signature: Ny Goldstein MA June 08, 2023 7:09 AM [facility] 06-08-2023 History of Present illness Narrative POPULATION HEALTH NAVIGATION OUTREACH Action/I Patient is on [employer] list for below and needs appointment to address: RSV Vaccine(1 - 1-dose 60+ series) Covid-19 Vaccine( season) Pneumococcal Vaccine: 65+(1 of 1 - PCV) Advance Directive Discussion Behavioral Health Screening Hemoglobin A1C (%) Date Value 09/28/2020 5.6 Patient due for: Medicare Annual Wellness Visit - 11-20-22 Advance Directives Left message for patient to call back. Sent [employer] message. Reason for Outreach Care Gap/HCC or Scheduling Wellness Visits Care Gaps due: Medicare Annual Wellness Visit Advance Directives Patient Contacted: Unable or unnecessary to reach patient: Left message [employer] message sent HCC related Navigation Signature: Ny Goldstein MA June 08, 2023 7:09 AM documented in this encounter [facility] 06-08-2023 Note Patient Outreach (KALA TNAV) BONNIE MARTINEZ ([id number]) 1955 M Date Time Provider Department 06/08/23 [place] GOLDSTEIN During your visit today, we recorded the following information about you: Ny Goldstein MA 06/08/2023 9:19 AM Signed POPULATION HEALTH NAVIGATION OUTREACH Action/FYI Patient is on [employer] list for below and needs appointment to address: RSV Vaccine(1 - 1-dose 60+ series) Covid-19 Vaccine( season) Pneumococcal Vaccine: 65+(1 of 1 - PCV) Advance Directive Discussion Behavioral Health Screening Hemoglobin A1C (%) Date Value 09/28/2020 5.6 Patient due for: Medicare Annual Wellness Visit - 11-20-22 Advance Directives Left message for patient to call back. Sent [employer] message. Reason for Outreach Care Gap/HCC or Scheduling Wellness Visits Care Gaps due: Medicare Annual Wellness Visit Advance Directives Patient Contacted: Unable or unnecessary to reach patient: Left message [employer] message sent HCC related Navigation Signature: Ny Goldstein MA June 08, 2023 7:09 AM Allergies As of Date: 06/08/2023 Noted Allergy Reaction ERYTHROMYCIN BASE 09/21/2008 8 - GI Upset Date Reviewed: 01/15/2023 Reviewed by: Jasmina Reyes PA-C - Fully Assessed Reason for Visit: Population Health Navigation Outreach [3910] Cmt: [employer] - AWV, Care gaps, HCC gap closure - [place] PCSA Prescriptions as of 06/08/2023 - predniSONE [...] Encounter Status:Closed by NY GOLDSTEIN on 06/08/23 [facility] 04-12-2023 History of Present illness Narrative Program_ID:[id number] Access Code: [email or web address] URL: [email or web address] Date: 04-12-2023 Prepared By: Bel Renee Program [...] 929 Session Stop Time : 1003 MILES Braillas, PT documented in this encounter [facility] 04-12-2023 Note HNO ID: [id number] Author: BEL RENEE PT Service: ? Author Type: Physical Therapist Type: Progress Notes Filed: 06/05/2023 08:44 Note Text: 06/05/2023 [facility] PHYSICAL THERAPY DISCONTINUANCE OF CARE Plan of Care Period: Start of Care Date: 04/04/23 Last Visit Date: 04/12/2023 Therapy Program: The following is a summary of the interventions provided for this episode of care; Therapeutic exercise and Self-mcfp management Assessment: Based on most recent visit, [...] Stop Time : 1003 MILES Barillas, PT [facility] 04-10-2023 History of Present illness Narrative Program_ID:[id number] Access Code: [email or web address] URL: [email or web address] Date: 04-10-2023 Prepared By: Bel Renee Program [...] at endrange 6: *Access Code: [email or web address] URL: [email or web address] Date: 04/10/2023 Prepared by: Bel Marie Exercises [...] and function . Patient education as noted. Self-Residential Management: 1: pause median nerve glides 2: [...] Bel Renee PT documented in this encounter [facility] 04-10-2023 Note HNO ID: [id number] Author: BEL RENEE, PT Service: ? Author [...] at endrange 6: *Access Code: [email or web address] URL: [email or web address] Date: 04/10/2023 Prepared by: Bel Renee Exercises [...] and function . Patient education as noted. Self-Residential Management: 1: pause median nerve glides 2: [...] Minutes: 20 Self-Care/Ho (more content not included)... [facility] 04-04-2023 Miscellaneous Notes Addended by: BEL RENEE on: 04/04/2023 10:25 AM Modules accepted: Orders documented in this encounter [facility] 04-04-2023 History of Present illness Narrative Program_ID:[id number] Access Code: [email or web address] URL: [email or web address] Date: 04-04-2023 Prepared By: Bel Renee Program Notes Exercises - Ulnar Nerve/Median Fackler- Low Level - 3-5 x daily - [...] of Care: created on 04/04/23 through 05/16/23 [place] in home exercise program. Patient will decrease [...] of Visits Planned: 12 Planned Treatment Interventions: Self-mcfp management (17200), Therapeutic activities (00182), Manual therapy (71365), Neuromuscular re-education (56568), Therapeutic exercise (26846) PLAN FOR NEXT VISIT: assess median nerve [...] provided TREATMENT: PT Treatment Interventions: Therapeutic Exercise, Self-Residential Management Evaluation Therapeutic Exercise: 1: *Access Code: [email or web address] URL: [email or web address] Date: 04/04/2023 Prepared by: Bel Marie Exercises - Ulnar Nerve/Median Fackler- Low Level - 3-5 x daily - [...] and function . Patient education as noted. Self-Residential Management: 1: postural awareness 2: median nerve [...] Bel Renee PT documented in this encounter [facility] 04-04-2023 Note HNO ID: [id number] Author: BEL RENEE PT Service: ? Author [...] of Care: created on 04/04/23 through 05/16/23 [place] in home exercise program. Patient will decrease [...] of Visits Planned: 12 Planned Treatment Interventions: Self-mcfp management (04727), Therapeutic activities (62089), Manual therapy (25948), Neuromuscular re-education (22521), Therapeutic exercise (56003) PLAN FOR NEXT VISIT: assess median nerve [...] mean of general (more content not included)... [facility] 01-15-2023 Note HNO ID: [id number] Author: Jasmina Reyes PA-C Service: ? Author Type: Physician Supervisor [employer] Type: Progress Notes Filed: 01/15/2023 1:59 PM Note Text: Jasmina Reyes PA-C Department of Orthopaedics Orthopaedics [address] [facility] [address] Dept: [phone] Dept January 15, 2023 Consultation requested by [...] space narrowing and bilateral neural foraminal narrowing. Front Desk: [facility] Transcribe Date/Time: Nov 21 2022 11:36A [...] bilateral Luschka joints (more content not included)... [facility] 01-15-2023 History of Present illness Narrative Jasmina Reyes PA-C Department of Orthopaedics Orthopaedics [address] [facility] [address] Dept: [phone] Dept January 15, 2023 Consultation requested by [...] space narrowing and bilateral neural foraminal narrowing. Front Desk: [facility] Transcribe Date/Time: Nov 21 2022 11:36A [...] are normal. IMPRESSION: No acute osseous abnormality Front Desk: [facility] Transcribe Date/Time: Nov 21 2022 4:33P [...] SURGICAL HISTORY OF right 4th and 5th injury-[facility] PAST SURGICAL HISTORY OF Right 1985 right [...] anxiety) This note was partially generated using Kumo voice recognition system, and there may be [...] Daria Jaramillo RN documented in this encounter [facility] 01-15-2023 Note HNO ID: [id number] Author: Daria Jaramillo RN Service: ? Author [...] Continuous Intervention/Comfort measure: Reposition Daria Jaramillo RN [facility] 11-24-2022 Miscellaneous Notes Patient returned call, he [...] Justine Leary APRN.EUSEBIO documented in this encounter [facility] 11-20-2022 Instructions Justine Leary APRN.CNP - 11/20/2022 10:46 AM EDT Get labs completed today Complete xrays Scheduled with Orthopedics Continue to eat a well balanced diet and stay active. Follow up in 1 year or sooner as needed. Massage therapy may be helpful for neck/trap pain. documented in this encounter [facility] 11-20-2022 History of Present illness Narrative Bonnie Martinez is a 66 year old male here for a Medicare wellness visit. Health Risk Assessment In general, health is: Excellent Concerns with balance:Not at all Concerns with teeth or dentures:Not at all Concerns with sexual function:Not at all [place] anxious, stressed, angry, irritable, lonely, isolated, or [...] SURGICAL HISTORY OF right 4th and 5th injury-[facility] PAST SURGICAL HISTORY OF Right 1985 right [...] APRN.CNP This note was partially generated using Kumo voice recognition system. Note was reviewed for accuracy. There may be minor misspellings or grammar miscues with Ad[employer]on voice recognition. documented in this encounter [facility] 10-10-2021 Miscellaneous Notes Pt notified of results via [employer]. If questions to contact the office. Sumaya Valadez Ma Can you please call the patient and let him know that his Cologuard was negative. Repeat screening will be due in 3 years. Please let me know if he has any questions. Thank you. Justine Leary APRN.CNP documented in this encounter [facility] 10-01-2021 History of Present illness Narrative View External Lab - Miscellaneous Lab [ID [id number]] documented in this encounter [facility] 09-30-2021 Miscellaneous Notes Patient notified of results, verbalizes understanding of instructions. Jesse Gonzalez LPN Can you please call the patient and let him know that I reviewed his lab results that were completed at [facility], labs were all relatively normal however [...] View External Lab - Miscellaneous Lab [ID [id number]] Sumaya Valadez Ma documented in this encounter [facility] 09-22-2021 Instructions Justine Leary APRN.EUSEBIO - 09/22/2021 10:46 AM EDT 1.) Get fasting labs completed. 2.) Stool kit will come to your house in the mail. 3.) Continue to use Tylenol 3 as needed for migraine headache. 4.) Follow up in 1 year or sooner as needed. Get 3rd Covid Booster documented in this encounter [facility] 09-22-2021 History of Present illness Narrative [...] SURGICAL HISTORY OF right 4th and 5th injury-[facility] PAST SURGICAL HISTORY OF Right 1985 right [...] activity was identified. 09/22/2021 by Justine Leary APRN.SECOND BAKER ASSESSMENT/PLAN: 1. Nonintractable headache, unspecified chronicity pattern, [...] ICD10: Z23 - VIS sheet provided. - [place]am[place] COVID-19 VACCINE, AGE 12+ YR (LOZANO TOP) Follow up in 1 year or sooner as needed. Discussed treatment plan and patient voices understanding. Patient's questions answered appropriately. Medications and potential side effects were discussed and patient voices understanding. Justine Leary APRN.EUSEBIO This note was partially generated using Kumo voice recognition system. Note was reviewed for accuracy. There may be minor misspellings or grammar miscues with Dragon voice recognition. documented in this encounter [facility] Evaluation note Diagnosis Nonintractable headache, unspecified chronicity pattern, unspecified headache type- Primary Screening for colon cancer Special screening for malignant neoplasms, colon Screening cholesterol level Screening for lipoid disorders Screening for diabetes mellitus Elevated PSA Elevated prostate specific antigen (PSA) Encounter for immunization Need for other specified prophylactic vaccination against single bacterial disease [facility] Medicare annual wellness visit, initial- Primary Routine general medical examination at a [facility] care facility Chronic neck pain Cervicalgia [...] of urine documented in this encounter [facility] note* Diagnosis Kidney stone- Primary Calculus of kidney Elevated PSA Elevated prostate specific antigen (PSA) Flank pain Abdominal pain, unspecified site Encounter for observation for other suspected diseases and conditions ruled out documented in this encounter [facility] note* Diagnosis Pain in both knees, unspecified chronicity Bilateral hip pain Pain in joint, pelvic region and thigh documented in this encounter [facility] note* Diagnosis Kidney stone Calculus of kidney Flank pain Abdominal pain, unspecified site documented in this encounter [facility] note* Diagnosis Kidney stone Calculus of kidney Flank pain Abdominal pain, unspecified site documented in this encounter [facility] note* Diagnosis Bilateral hip pain Pain in joint, pelvic region and thigh documented in this encounter [facility] note* Diagnosis Acute pain of right shoulder Chronic neck pain Cervicalgia documented in this encounter [facility] note* Diagnosis Kidney stones [N20.0]- Primary Calculus of kidney documented in this encounter [facility] note* Diagnosis Kidney stone- Primary Calculus of kidney documented in this encounter [facility] note* Diagnosis Kidney stone- Primary Calculus of kidney documented in this encounter [facility] for referral (narrative)* Diagnostic Procedure Only (Routine) - Closed Specialty Diagnoses / Procedures Referred By Roberto pino Referred To Contact XR IMAGING Diagnoses Bilateral hip pain Procedures XR HIP BILATERAL 5V PEL/AP/LAT EACH HIP RADEX HIPS BILATERAL WITH PELVIS MINIMUM 5 VIEWS Justine Leary APRN.SECOND BAKER [address] [place] [address] [place] [id number] Referral ID Status Reason Start Date Expiration Date V isits Requested Visits Authorized [id number] Closed Auto-Generate d Referral 09/12/2023 10/11/2024 1 1 * Consult, Test, Treat (Routine) - Authorized Specialty Diagnoses / Procedures Referred By Roberto pnio Referred To Contact Orthopedics Diagnoses Bilateral hip pain Procedures CONSULT TO ORTHOPAEDICS OFFICE/OUTPATIENT [facility] 60 MINUTES Justine Leary APRN.CNP [address] [place] [address] Referral ID Status Reason Start Date Expiration Date Visits Requested Visits Authorized [id number] Authorized PCP Requested Referral 09/12/2023 09/11/2024 1 1 * Diagnostic Procedure Only (Routine) - Closed Specialty Diagnoses / Procedures Referred By Richardac t Referred To Contact XR IMAGING Diagnoses Pain in both knees, unspecified chronicity Procedures XR KNEE GENERAL 4V AP BOTH/PA BOTH/LAT/MERC BILATERAL RADIOLOGIC EXAM KNEE COMPLETE 4/MORE VIEWS Justine Leary APRN.SECOND BAKER [address] [place] [address] [place] [id number] Referral ID Status Reason Start Date Expiration Date V isits Requested Visits Authorized [id number] Closed Auto-Generate d Referral 09/12/2023 10/11/2024 1 1 [facility] Diagnostic Procedure Only (Routine) - Authorized Specialty Diagnoses / Procedures Referred By Roberto pino Referred To Contact US IMAGING Diagnoses History of flank pain Dark urine Procedures US KIDNEY/BLADDER US RETROPERITONEAL REAL TIME W/IMAGE COMPLETE Justine Leary APRN.CNP [address] [place] [address] [place] [address] Referral ID Status Reason Start Date Expiration Date Visits Requested Visits Authorized [id number] Authorized Auto-Generat ed Referral 10/02/2023 10/31/2024 1 1 [facility] for referral (narrative)* Diagnostic Procedure Only (Routine) - New Request Specialty Diagnoses / Procedures Referred By Contac t Referred To Contact XR IMAGING Diagnoses Kidney stone Flank pain Procedures XR ABDOMEN 1V SUPINE RADIOLOGIC EXAM ABDOMEN 1 VIEW Patrice Edwards Jr., MD [address] [place] [address] [place] [address] Referral ID Status Reason Start Date Expiration Date Visits Requested Visits Authorized [id number] New Request Auto-Generat ed Referral 10/25/2023 11/23/2024 1 1 * MRI/CT (Routine) - Authorized Specialty Diagnoses / Procedures Referred By Contac t Referred To Contact MR IMAGING Diagnoses Encounter for observation for other suspected diseases and conditions ruled out Procedures MRI PROSTATE WO/W IVCON MRI PELVIS W/O & W/CONTRAST MATERIAL Patrice Edwards Jr., MD [address] [place] [address] [place] [address] Referral ID Status Reason Start Date Expiration Date Visits Requested Visits Authorized [id number] Authorized Auto-Generat ed Referral 10/25/2023 11/23/2024 1 1 * MRI/CT (Routine) - Authorized Specialty Diagnoses / Procedures Referred By Contac t Referred To Contact CT IMAGING Diagnoses Kidney stone Flank pain Procedures CT FLANK WO IVCON CT ABD & PELVIS [place] [address] [place] [address] [address] [facility] Referral ID Status Reason Start Date Expiration Date Visits Requested Visits Authorized [id number] Authorized Auto-Generat ed Referral 10/25/2023 11/23/2024 1 1 [facility] for referral (narrative)* Diagnostic Procedure Only (Routine) - Closed Specialty Diagnoses / Procedures Referred By Contac t Referred To Contact XR IMAGING Diagnoses Bilateral hip pain Procedures XR HIP BILATERAL 5V PEL/AP/LAT EACH HIP RADEX HIPS BILATERAL WITH PELVIS MINIMUM 5 VIEWS Justine Leary APRN.SECOND BAKER [address] [place] [address] [place] [address] Referral ID Status Reason Start Date Expiration Date V isits Requested Visits Authorized [id number] Closed Auto-Generate d Referral 09/12/2023 10/11/2024 1 1 * Diagnostic Procedure Only (Routine) - Closed Specialty Diagnoses / Procedures Referred By Contac t Referred To Contact XR IMAGING Diagnoses Pain in both knees, unspecified chronicity Procedures XR KNEE GENERAL 4V AP BOTH/PA BOTH/LAT/MERC BILATERAL RADIOLOGIC EXAM KNEE COMPLETE 4/MORE VIEWS Justine Leary APRN.SECOND BAKER [address] [place] [address] [place] [address] Referral ID Status Reason Start Date Expiration Date V isits Requested Visits Authorized [id number] Closed Auto-Generate d Referral 09/12/2023 10/11/2024 1 1 [facility] for referral (narrative)* Diagnostic Procedure Only (Routine) - Closed Specialty Diagnoses / Procedures Referred By Contac t Referred To Contact XR IMAGING Diagnoses Chronic neck pain Procedures XR CERV OTHER 4V AP/LAT/OBL RADEX SPINE CERVICAL 4 OR 5 VIEWS Justine Leary APRN.SECOND BAKER [address] [place] [address] [place] [address] Referral ID Status Reason Start Date Expiration Date V isits Requested Visits Authorized [id number] Closed Auto-Generate d Referral 11/20/2022 12/20/2023 1 1 * Diagnostic Procedure Only (Routine) - Closed Specialty Diagnoses / Procedures Referred By Contac t Referred To Contact XR IMAGING Diagnoses Acute pain of right shoulder Procedures XR SHOULDER GENERAL 3V OR MORE AP/TRUE AP/OTHER RIGHT RADEX SHOULDER COMPLETE MINIMUM 2 VIEWS Justine Leary APRN.SECOND BAKER [address] [place] [address] [place] [address] Referral ID Status Reason Start Date Expiration Date V isits Requested Visits Authorized [id number] Closed Auto-Generate d Referral 11/20/2022 12/20/2023 1 1 [facility] for referral (narrative)* Diagnostic Procedure Only (Routine) - New Request Specialty Diagnoses / Procedures Referred By Contac t Referred To Contact XR IMAGING Diagnoses Kidney stone Procedures XR ABDOMEN 1V SUPINE RADIOLOGIC EXAM ABDOMEN 1 VIEW Patrice Edwards Jr., MD [address] [place] [address] [place] [address] Referral ID Status Reason Start Date Expiration Date Visits Requested Visits Authorized [id number] New Request Auto-Generat ed Referral 01/01/2025 1 1 [facility] for visit Narrative* Diagnostic Procedure Only (Routine) - Closed Specialty Diagnoses / Procedures Referred By Contac t Referred To Contact XR IMAGING Diagnoses Bilateral hip pain Procedures XR HIP BILATERAL 5V PEL/AP/LAT EACH HIP RADEX HIPS BILATERAL WITH PELVIS MINIMUM 5 VIEWS Justine Leary APRN.CNP [address] [place] [address] [place] [address] Referral ID Status Reason Start Date Expiration Date V isits Requested Visits Authorized [id number] Closed Auto-Generate d Referral 09/12/2023 10/11/2024 1 1 [facility] for visit Narrative* Diagnostic Procedure Only (Routine) - Closed Specialty Diagnoses / Procedures Referred By Contac t Referred To Contact XR IMAGING Diagnoses Kidney stone Flank pain Procedures XR ABDOMEN 1V SUPINE RADIOLOGIC EXAM ABDOMEN 1 VIEW Patrice Edwards Jr., MD [address] [place] [address] [place] [address] Referral ID Status Reason Start Date Expiration Date V isits Requested Visits Authorized [id number] Closed Auto-Generate d Referral 10/25/2023 11/23/2024 1 1 [facility] for visit Narrative* Diagnostic Procedure Only (Routine) - Closed Specialty Diagnoses / Procedures Referred By Contac t Referred To Contact XR IMAGING Diagnoses Chronic neck pain Procedures XR CERV OTHER 4V AP/LAT/OBL RADEX SPINE CERVICAL 4 OR 5 VIEWS Justine Leary APRN.SECOND BAKER [address] [place] [address] [place] [address] Referral ID Status Reason Start Date Expiration Date V isits Requested Visits Authorized [id number] Closed Auto-Generate d Referral 11/20/2022 12/20/2023 1 1 [facility] Instructions Name Dates Details Patient Instructions [...] neck pain Procedures CONSULT TO ORTHOPAEDICS OFFICE/OUTPATIENT [facility] 60-74 MINUTES Justine Leary APRN.SECOND BAKER [address] [place] [address] Referral ID Status Reason Start Date Expiration Date Visits Requested Visits Authorized [id number] Authorized PCP Requested Referral 11/20/2022 11/20/2023 1 1 Specialty Diagnoses / Procedures Referred By Contac t Referred To Contact XR IMAGING Diagnoses Chronic neck pain Procedures XR CERV OTHER 4V AP/LAT/OBL RADEX SPINE CERVICAL 4 OR 5 VIEWS Justine Leary APRN.SECOND BAKER [address] [place] [address] [place] [address] Referral ID Status Reason Start Date Expiration Date V isits Requested Visits Authorized [id number] Closed Auto-Generate d Referral 11/20/2022 12/20/2023 1 1 Specialty Diagnoses / Procedures Referred By Contac t Referred To Contact XR IMAGING Diagnoses Acute pain of right shoulder Procedures XR SHOULDER GENERAL 3V OR MORE AP/TRUE AP/OTHER RIGHT RADEX SHOULDER COMPLETE MINIMUM 2 VIEWS Justine Leary, TARAS.SECOND BAKER [address] [place] [address] [place] [address] Referral ID Status Reason Start Date Expiration Date V isits Requested Visits Authorized [id number] Closed Auto-Generate d Referral 11/20/2022 12/20/2023 1 1 Specialty Diagnoses / Procedures Referred By Contac t Referred To Contact [facility] Diagnoses Numbness of hand DDD (degenerative disc disease), cervical Procedures CONSULT TO PHYSICAL THERAPY PHYSICAL THERAPY EVALUATION HIGH COMPLEX 45 MINS Jasmina Reyes PA-C [address] [place] [address] [facility] [place] [address] [place] [address] Referral ID Status Reason Start Date Expiration Date Visits Requested Visits Authorized [id number] Pending Review PCP Requested Referral Auto-Generate d Referral 3 01/15/2024 99 99 Specialty Diagnoses / Procedures Referred By Contac t Referred To Contact US IMAGING Diagnoses Numbness of hand Procedures US ELBOW LEFT US LMTD JOINT/OTH NONVASC XTR STRUX R-T W/Jasmina Quezada PA-C [address] [place] [address] Us Imaging [facility] Referral ID Status Reason Start Date Expiration Date Visits Requested Visits Authorized [id number] Pending Review Auto-Generat ed Referral 3 02/14/2024 1 1 Specialty Diagnoses / Procedures Referred By Contac t Referred To Contact US IMAGING Diagnoses Numbness of hand Procedures US ELBOW RIGHT US LMTD JOINT/OTH NONVASC XTR STRUX R-T W/Jasmina Quezada PA-C [address] [place] [address] Us Imaging [facility] Referral ID Status Reason Start Date Expiration Date Visits Requested Visits Authorized [id number] Pending Review Auto-Generat ed Referral 3 02/14/2024 1 1 Specialty Diagnoses / Procedures Referred By Contac t Referred To Contact Urology Diagnoses Elevated PSA Procedures CONSULT TO UROLOGY OFFICE/OUTPATIENT NEW HIGH MDM 60 MINUTES Justine Leary APRN.SECOND BAKER [address] [place] [address] Referral ID Status Reason Start Date Expiration Date Visits Requested Visits Authorized [id number] Authorized PCP Requested Referral 10/03/2023 10/02/2024 1 1 Specialty Diagnoses / Procedures Referred By Contac t Referred To Contact CT IMAGING Diagnoses Kidney stone Flank pain Procedures CT FLANK WO IVCON CT ABD & PELVIS W/O CONTRAST Patrice Edwards Jr., MD [address] [place] [address] [place] [address] Referral ID Status Reason Start Date Expiration Date V isits Requested Visits Authorized [id number] Closed Auto-Generate d Referral 10/25/2023 11/23/2024 1 [...] or prosecute any alcohol or drug abuse patient.[facility] the event this information is protected by the Federal Confidentiality of Alcohol and Drug Abuse Patient Records regulations: The Federal rules restrict any use of the information to criminally investigate or prosecute any alcohol or drug abuse patient.[facility] the event this information is protected by the Federal Confidentiality of Alcohol and Drug Abuse Patient Records regulations: The Federal rules restrict any use of the information to criminally investigate or prosecute any alcohol or drug abuse patient.[facility] the event this information is protected by the Federal Confidentiality of Alcohol and Drug Abuse Patient Records regulations: The Federal rules restrict any use of the information to criminally investigate or prosecute any alcohol or drug abuse patient.[facility] the event this information is protected by the Federal Confidentiality of Alcohol and Drug Abuse Patient Records regulations: The Federal rules restrict any use of the information to criminally investigate or prosecute any alcohol or drug abuse patient.[facility] the event this information is protected by the Federal Confidentiality of Alcohol and Drug Abuse Patient Records regulations: The Federal rules restrict any use of the information to criminally investigate or prosecute any alcohol or drug abuse patient.[facility] the event this information is protected by the Federal Confidentiality of Alcohol and Drug Abuse Patient Records regulations: The Federal rules restrict any use of the information to criminally investigate or prosecute any alcohol or drug abuse patient.[facility] the event this information is protected by the Federal Confidentiality of Alcohol and Drug Abuse Patient Records regulations: The Federal rules restrict any use of the information to criminally investigate or prosecute any alcohol or drug abuse patient.[facility] the event this information is protected by the Federal Confidentiality of Alcohol and Drug Abuse Patient Records regulations: The Federal rules restrict any use of the information to criminally investigate or prosecute any alcohol or drug abuse patient.[facility] the event this information is protected by the Federal Confidentiality of Alcohol and Drug Abuse Patient Records regulations: The Federal rules restrict any use of the information to criminally investigate or prosecute any alcohol or drug abuse patient.[facility]In the event this information is protected by the Federal Confidentiality of Alcohol and Drug Abuse Patient Records regulations: The Federal rules restrict any use of the information to criminally investigate or prosecute any alcohol or drug abuse patient.[facility]In the event this information is protected by the Federal Confidentiality of Alcohol and Drug Abuse Patient Records regulations: The Federal rules restrict any use of the information to criminally investigate or prosecute any alcohol or drug abuse patient.[facility]In the event this information is protected by the Federal Confidentiality of Alcohol and Drug Abuse Patient Records regulations: The Federal rules restrict any use of the information to criminally investigate or prosecute any alcohol or drug abuse patient.[facility]In the event this information is protected by the Federal Confidentiality of Alcohol and Drug Abuse Patient Records regulations: The Federal rules restrict any use of the information to criminally investigate or prosecute any alcohol or drug abuse patient.[facility]In the event this information is protected by the Federal Confidentiality of Alcohol and Drug Abuse Patient Records regulations: The Federal rules restrict any use of the information to criminally investigate or prosecute any alcohol or drug abuse patient.[facility]In the event this information is protected by the Federal Confidentiality of Alcohol and Drug Abuse Patient Records regulations: The Federal rules restrict any use of the information to criminally investigate or prosecute any alcohol or drug abuse patient.[facility] HospitalIn the event this information is protected [...] or prosecute any alcohol or drug abuse patient.[facility] HospitalIn the event this information is protected by the Federal Confidentiality of Alcohol and Drug Abuse Patient Records regulations: The Federal rules restrict any use of the information to criminally investigate or prosecute any alcohol or drug abuse patient.[facility]In the event this information is protected by the Federal Confidentiality of Alcohol and Drug Abuse Patient Records regulations: The Federal rules restrict any use of the information to criminally investigate or prosecute any alcohol or drug abuse patient.[facility]In the event this information is protected by the Federal Confidentiality of Alcohol and Drug Abuse Patient Records regulations: The Federal rules restrict any use of the information to criminally investigate or prosecute any alcohol or drug abuse patient.[facility]In the event this information is protected by the Federal Confidentiality of Alcohol and Drug Abuse Patient Records regulations: The Federal rules restrict any use of the information to criminally investigate or prosecute any alcohol or drug abuse patient.[facility]In the event this information is protected by the Federal Confidentiality of Alcohol and Drug Abuse Patient Records regulations: The Federal rules restrict any use of the information to criminally investigate or prosecute any alcohol or drug abuse patient.[facility]In the event this information is protected by the Federal Confidentiality of Alcohol and Drug Abuse Patient Records regulations: The Federal rules restrict any use of the information to criminally investigate or prosecute any alcohol or drug abuse patient.[facility]In the event this information is protected by the Federal Confidentiality of Alcohol and Drug Abuse Patient Records regulations: The Federal rules restrict any use of the information to criminally investigate or prosecute any alcohol or drug abuse patient.[facility]In the event this information is protected by the Federal Confidentiality of Alcohol and Drug Abuse Patient Records regulations: The Federal rules restrict any use of the information to criminally investigate or prosecute any alcohol or drug abuse patient.[facility]In the event this information is protected by the Federal Confidentiality of Alcohol and Drug Abuse Patient Records regulations: The Federal rules restrict any use of the information to criminally investigate or prosecute any alcohol or drug abuse patient.[facility]In the event this information is protected by the Federal Confidentiality of Alcohol and Drug Abuse Patient Records regulations: The Federal rules restrict any use of the information to criminally investigate or prosecute any alcohol or drug abuse patient.[facility]In the event this information is protected by the Federal Confidentiality of Alcohol and Drug Abuse Patient Records regulations: The Federal rules restrict any use of the information to criminally investigate or prosecute any alcohol or drug abuse patient.[facility]In the event this information is protected by the Federal Confidentiality of Alcohol and Drug Abuse Patient Records regulations: The Federal rules restrict any use of the information to criminally investigate or prosecute any alcohol or drug abuse patient.[facility] Reason for Visit (unrecogniz ed section and content) Reason Comments Physical Therapy Specialty Diagnoses / Procedures Referred By Roberto pino Referred To Contact [facility] Diagnoses Numbness of hand DDD (degenerative disc disease), cervical Procedures CONSULT TO PHYSICAL THERAPY PHYSICAL THERAPY EVALUATION HIGH COMPLEX 45 MINS Jasmina Reyes PA-C [address] [place] [address] [facility] [place] [address] [place] [address] Referral ID Status Reason Start Date Expiration Date Visits Requested Visits Authorized [id number] Authorized PCP Requested Referral Auto-Generate d Referral 02/19/2023 02/19/2024 99 99 Reason Comments Follow Up mirgrains Reason Comments Abstract external document Reason Comments Results Cologuard Reason Comments Results Labs ([facility]) Reason Comments Medicare Wellness Exam Reason [...] NEW HIGH MDM 60-74 MINUTES Justine Leary APRN.SECOND BAKER [address] [place] [address] Referral ID Status Reason Start Date Expiration Date V isits Requested Visits Authorized [id number] Closed PCP Requested Referral 11/20/2022 11/20/2023 1 1 Reason Comments PT Eval Reason Onset Date Comments Population Health Navigation Outreach 06/08/2023 [employer] - AWV, Care gaps, HCC [...] RETROPERITONEAL REAL TIME W/IMAGE COMPLETE Justine Leary APRN.SECOND BAKER [address] [place] [address] [place] [address] Referral ID Status Reason Start Date Expiration Date V isits Requested Visits Authorized [id number] Closed Auto-Generate d Referral 10/02/2023 10/31/2024 1 1 Reason Comments Results Us Kidney/bladder Reason Comments Elevated PSA Kidney Stones Specialty Diagnoses / Procedures Referred By Contac t Referred To Contact Urology Diagnoses Elevated PSA Procedures CONSULT TO UROLOGY OFFICE/OUTPATIENT NEW HIGH MDM 60 MINUTES Justine Leary APRN.SECOND BAKER [address] [place] [address] Referral ID Status Reason Start Date Expiration Date V isits Requested Visits Authorized [id number] Closed PCP Requested Referral 10/03/2023 10/02/2024 [address] Specialty Diagnoses / Procedures Referred By Contac t Referred To Contact CT IMAGING Diagnoses Kidney stone Flank pain Procedures CT FLANK WO IVCON CT ABD & PELVIS W/O CONTRAST Patrice Edwards Jr., MD [address] [place] [address] [place] [address] Referral ID Status Reason Start Date Expiration Date V isits Requested Visits Authorized [id number] Closed Auto-Generate d Referral 10/25/2023 11/23/2024 1 1 Reason Comments New Pain Specialty Diagnoses / Procedures Referred By Contac t Referred To Contact Orthopedics Diagnoses Bilateral hip pain Procedures CONSULT TO ORTHOPAEDICS OFFICE/OUTPATIENT [facility] 60 MINUTES Justine Leary APRN.CNP [address] [place] [address] Referral ID Status Reason Start Date Expiration Date V isits Requested Visits Authorized [id number] Closed PCP Requested Referral 09/12/2023 09/11/2024 1 1 Reason Comments Kidney Stones Reason Comments Schedule Surgery Reason Comments Appointment Reason Comments Patient Update Care Teams (unrecognized sec tion and content) Finished Hardware Erector Relationship Specialty Start Date End Date Lilian Chowdhury MD [address] [place] [address] PCP - General Family Practice 05/31/15 Finished Hardware Erector Relationship Specialty Start Date End Date Lilian Chowdhury MD [address] [place] [address] PCP - General Family Practice 05/31/15 Finished Hardware Erector Relationship Specialty Start Date End Date Lilian Chowdhury MD [address] [place] [address] PCP - General Family Medicine 05/31/15 Finished Hardware Erector Relationship Specialty Start Date End Date Lilian Chowdhury MD [address] [place] [address] PCP - General Family Medicine 05/31/15 Finished Hardware Erector Relationship Specialty Start Date End Date Lilian Chowdhury MD [address] [place] [address] PCP - General Family Medicine 05/31/15 Finished Hardware Erector Relationship Specialty Start Date End Date Lilian Chodwhury MD [address] [place] [address] PCP - General Family Medicine 05/31/15 Finished Hardware Erector Relationship Specialty Start Date End Date Lilian Chowdhury MD [address] [place] [address] PCP - General Family Medicine 05/31/15 Finished Hardware Erector Relationship Specialty Start Date End Date Lilian Chowdhury MD [address] [place] [address] PCP - General Family Medicine 05/31/15 Finished Hardware Erector Relationship Specialty Start Date End Date Lilian Chowdhury MD [address] [place] [address] PCP - General Family Medicine 05/31/15 Finished Hardware Erector Relationship Specialty Start Date End Date Lilian Chowdhury MD [address] [place] [address] PCP - General Family Medicine 05/31/15 Finished Hardware Erector Relationship Specialty Start Date End Date Lilian Chowdhury MD [address] [place] [address] PCP - General Family Medicine 05/31/15 Finished Hardware Erector Relationship Specialty Start Date End Date Lilian Chowdhury MD [address] [place] [address] PCP - General Family Medicine 05/31/15 Finished Hardware Erector Relationship Specialty Start Date End Date Lilian Chowdhury MD [address] [place] [address] PCP - General Family Medicine 05/31/15 Finished Hardware Erector Relationship Specialty Start Date End Date Lilian Chowdhury MD [address] [place] [address] PCP - General Family Medicine 05/31/15 Finished Hardware Erector Relationship Specialty Start Date End Date Lilian Chowdhury MD [address] [place] [address] PCP - General Family Medicine 05/31/15 Finished Hardware Erector Relationship Specialty Start Date End Date Lilian Chowdhury MD [address] [place] [address] PCP - General Family Medicine 05/31/15 Finished Hardware Erector Relationship Specialty Start Date End Date Lilian Chowdhury MD [address] [place] [address] PCP - General Family Medicine 05/31/15 Finished Hardware Erector Relationship Specialty Start Date End Date Lilian Chowdhury MD [address] [place] [address] PCP - General Family Medicine 05/31/15 Finished Hardware Erector Relationship Specialty Start Date End Date Lilian Chowdhury MD [address] [place] [address] PCP - General Family Medicine 05/31/15 Finished Hardware Erector Relationship Specialty Start Date End Date Lilian Chowdhury MD [address] [place] [address] PCP - General Family Medicine 05/31/15 Finished Hardware Erector Relationship Specialty Start Date End Date Lilian Chowdhury MD [address] [place] [address] PCP - General Family Medicine 05/31/15 Finished Hardware Erector Relationship Specialty Start Date End Date Lilian Chowdhury MD [address] [place] [address] PCP - General Family Medicine 05/31/15 Finished Hardware Erector Relationship Specialty Start Date End Date Lilian Chowdhury MD [address] [place], [place] [address] PCP - General Family Medicine 05/31/15 Finished [employer]ware [employer] Relationship Specialty Start Date End Date Lilian Chowdhury MD [address] [place], [place] [id number] PCP - General Family Medicine 05/31/15 (unrecognized sect ion and content) No Status Records FoundNo Status Records Found INFORMATION SOURCE (unrecogn ized section and content) DATE CREATED AUTHOR 11/29/2023 [facility] DATE CREATED AUTHOR 'S ORGANIZ ATION 2023 [facility] FOR RECORDS PERTAINING TO PATIENTS WHO [...] BE BASED ON THE PRIMARY CLINICAL RECORDS. [facility]. provides no warranty or guarantee of the accuracy or completeness of information in this document.
[2023-12-08] MEDS: Morphine 2 MG/ML Syringe IV (23:10)
[2023-12-08] MEDS: Cefazolin 0.5 GM in 0.9% Normal Saline (50mL Bag) 50 ML IV (23:28)
[2023-12-09] VITALS (8 sets, daily range): BP systolic 127–139; BP diastolic 76–85; PULSE 69–93; RESP 16–18; TEMP 36.2–36.9; O2SAT 95–97; BMI 30.8
[2023-12-09] MEDS: Ketorolac 15 MG/ML Vial IV (04:57)
[2023-12-09] MEDS: Cefazolin 0.5 GM in 0.9% Normal Saline (50mL Bag) 50 ML IV (05:49)
--- NOTE | 2023-12-09 07:55 | PCM.PRE.AN2 ---
ASA Classification* ASA Classification ASA Classification: 2 and E Assessment & Plan Anesthesia* Anesthesia Assessment Anesthesia Assessment: Discussed sedation and/or anesthesia options, risks, benefits, and alternatives with patient/parents/legal guardian/POA. Questions invited. The patient/parents/legal guardian/POA seems to understand and agrees to proceed with anesthesia plan. Reviewed the physical assessment, medical history, allergy history and patient home medications list prior to surgery/procedure/anesthetic and documented any changes. Performed airway and anesthesia risk assessments. Anesthesia Type Anesthesia Type: General (see written pre anesthesia record for full assessment) Anesthesia Focused Assessment* Temperature: 98.4 F Pulse Rate: 93 Blood Pressure: 139/77 Respiratory Rate: 18 Pulse Ox: 95 Airway Assessment Mouth opens: >3 cm Mallampati Score: II Focused Labs Anesthesia Preop lab: CBC WBC 16.7 K/mm3 (4.4-11.0) H 12/08/23 18:03 RBC 4.50 M/mm3 (4.6-6.2) L 12/08/23 18:03 Hgb 12.9 g/dL (13.0-16.5) L 12/08/23 18:03 Hct 39.7 % (40-54) L 12/08/23 18:03 Plt Count 361 K/mm3 (150-450) 12/08/23 18:03 CHEMISTRY Potassium 4.1 mmol/L (3.5-5.1) 12/08/23 18:03 Sodium 132 mmol/L (136-145) L 12/08/23 18:03 BUN 28 mg/dL (7-18) H 12/08/23 18:03 Creatinine 2.13 mg/dL (0.70-1.30) H 12/08/23 18:03 Glucose 123 mg/dL (74-106) H 12/08/23 18:03 COAG Pre-Assessment Diagnosis/Proposed Procedure Planned Operative Procedure(s): cysto stent Anesthesia History Anesthesia History - sales and service specialist: Anesthesia History - sales and service specialist Hx Hospitalization Any Problems With Anesthesia No 12/09/23 02:00 Cholinesterase deficiency No 12/09/23 02:00 You/Your Family Experience No 12/09/23 02:00 fever (hyperthermia) with Relationship Recent Exposure to Contagious No 12/09/23 02:00 Disease Does patient have nerve No 12/09/23 02:00 stimulator Patient instructed to have device shut off --Does patient have Pacemaker No 12/09/23 02:00 or ICD? When Was Last Pacemaker Check QUESTION #4 FULL TEXT: You/Your Family Experience fever (hyperthermia) with Anesthesia Last Oral Intake Last Oral intake: Last Oral Intake NPO since 00:00 12/09/23 02:00 Meds taken in AM with sips of No 12/09/23 02:00 water? Meds patient instructed to take am of surgery PONV PONV - sales and service specialist: PONV - sales and service specialist Female HX of Motion Sickness HX of N/V After Surgery Non-Smoker Duration of Surgery greater than 60 minutes Number of Risk Factors PONV Score Height & Weight Height & Weight: Anesthesia: Height & Weight Height 5 ft 8 in 12/09/23 02:00 Weight: 91.989 kg 12/09/23 02:00 Body Mass Index (BMI) 30.8 12/09/23 02:00 Respiratory Assessment Respiratory Assessment - sales and service specialist: Respiratory Tract Infection Hx - sales and service specialist Hx Respiratory Tract Infection No 12/09/23 02:00 STOP Sleep Apnea STOP Sleep Apnea - sales and service specialist: STOP Sleep Apnea - sales and service specialist Hx Hypertension Yes 12/08/23 22:17 Hx Sleep Apnea No 12/08/23 22:17 CPAP BIPAP Do you snore loudly (louder No 12/08/23 22:17 than talking or can be heard Do you often feel tired/ No 12/08/23 22:17 fatigued/ sleepy during daytime? Has anyone observed you stop No 12/08/23 22:17 breathing during sleep? STOP Results Negative 12/08/23 22:17 QUESTION #5 FULL TEXT : Do you snore loudly (louder than talking or can be heard through closed doors)? 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 Specify any problems Hx of Preganancy in last 3 N/A 12/08/23 22:17 Months Nurse Filling Out Transfusion LFORREST 12/08/23 22:17 & Questions: Date: 12/08/23 12/08/23 22:17 Time: 22:31 12/08/23 22:17 Patient unable to answer at this time (ie. confused, unrespo /Reproduction History /Reproductive History - sales and service specialist: /Reproductive Hx- sales and service specialist Hx Now Gestational Age (in weeks): EDC: Hx Hx Para Hx Section SAB Active Medications Active Medications: Current Medications Generic Name Dose Route Start Last Admin Trade Name Freq PRN Reason Stop Dose Admin Acetaminophen 500 mg 12/08/23 22:58 Acetaminophen 500 Mg Tablet PO Q4H PRN PRN Pain 1-10 or Fever Sodium Chloride 500 mls @ 15 mls/hr 12/08/23 22:40 IV .[id number] PRN Saline Flush Sodium Chloride 500 mls @ 15 mls/hr 12/08/23 22:40 IV .[id number] PRN Additional IVPB Infusion Cefazolin Sodium 0.5 gm/ 55 mls @ 100 mls/hr 12/08/23 23:01 12/09/23 06:49 Sodium Chloride IV Infused Q8 MARI Infusion Sodium Chloride 250 mls @ 15 mls/hr 12/08/23 22:00 12/08/23 23:00 IV 12/09/23 14:39 15 mls/hr .[id number] ONE Administration Ketorolac Tromethamine 15 mg 12/08/23 23:33 12/09/23 04:57 Ketorolac 15 Mg/Ml Vial IV 12/13/23 23:34 15 mg Q6H PRN PRN Administration Pain Score 1-10 Morphine Sulfate 2 mg 12/08/23 22:54 12/08/23 23:10 Morphine 2 Mg/Ml Syringe IV 2 mg Q2H PRN PRN Administration Pain Score 6-10 Sodium Chloride 10 - 40 ml 12/08/23 22:40 0.9% Saline Lock 10 Ml Syringe IV UD PRN SALINE FLUSH PFSH Medical History Kidney stones Home Medications ?Medication ?Instructions ?Recorded ?Last Taken ?Type ondansetron HCl 8 mg tablet 8 mg PO Q8H PRN PRN nausea/vomiting 12/08/23 Unknown History oxycodone-acetaminophen 5 mg-325 1 tab PO BID PRN PRN pain 12/08/23 Unknown History mg tablet Allergy/AdvReac Type Severity Reaction Status Date / Time No Known Allergies Allergy Verified 12/08/23 17:56 Family History no significant family his Surgical History History of ankle surgery Social History Smoking Status: Never smoker Review of Systems (Anesthesia) ROS Narrative System reviewed and no additional complaints, except as documented.
--- NOTE | 2023-12-09 07:59 | HP.PCM_ITS ---
HPI - General General Date of Admission: 12/08/23 Chief Complaint: right kidney stone HPI Narrative BONNIE JOHNSON, is a 68 M who presents to ER in severe pain had stone ESWL up in [place] by outside urologist, no stent placed presented in severe pain with elevated cr. has a fragments in distal right ureter causing obstruction. pt. prefered to stay local then being transfered back to [place] so plan to take to surgery to laser stones and remove fragments and place stent. [facility] Medical History Kidney stones Home Medications ?Medication ?Instructions ?Recorded ?Last Taken ?Type ondansetron HCl 8 mg tablet 8 mg PO Q8H PRN PRN nausea/vomiting 12/08/23 Unknown History oxycodone-acetaminophen 5 mg-325 1 tab PO BID PRN PRN pain 12/08/23 Unknown History mg tablet Allergy/AdvReac Type Severity Reaction Status Date / Time No Known Allergies Allergy Verified 12/08/23 17:56 Family History no significant family his Surgical History History of ankle surgery Social History Smoking Status: Never smoker ROS Constitutional Constitutional: Denies chills, fever(s) or malaise Eyes Eyes: Denies blurry vision or change in vision ENT HEENT: Reports none Cardiovascular Cardiovascular: Denies chest pain or palpitations Respiratory/Chest Respiratory/Chest: Denies cough or shortness of breath with exertion Gastrointestinal Gastrointestinal: Denies abdominal pain, constipation or diarrhea Musculoskeletal Musculoskeletal: Denies back pain, joint stiffness or joint swelling Integumentary Integumentary: Denies dry skin, jaundice, lesions or rash Neurologic Neurologic: Denies confusion, syncope or weakness Psychiatric Psychiatric: Reports none; Denies anxiety or depression Endocrine Endocrinology: Denies excessive sweating, fatigue or flushing Hematologic/Lymphatic Hematologic/Lymphatic: Denies anemia, easy bleeding or easy bruising Vital Signs Vital Signs Vital Signs: 12/08/23 17:23 12/08/23 19:21 12/08/23 21:00 Temperature 96.8 F L Temperature Source Temporal Pulse Rate 98 77 82 Respiratory Rate 18 18 16 Blood Pressure 175/103 H 157/82 H 166/98 H Blood Pressure Mean 127 107 120 Pulse Ox 97 95 97 Oxygen Delivery Method Room Air Room Air Room Air 12/08/23 21:03 12/08/23 22:17 12/09/23 05:41 Temperature 98.1 F 97.8 F 98.4 F Temperature Source Oral Oral Pulse Rate 82 78 93 Respiratory Rate 18 18 18 Blood Pressure 166/98 H 163/81 H 139/77 H Blood Pressure Mean 120 108 97 Pulse Ox 97 98 95 Oxygen Delivery Method Room Air Room Air 12/09/23 07:55 Temperature 98.4 F Temperature Source Pulse Rate 93 Respiratory Rate 18 Blood Pressure 139/77 H Blood Pressure Mean Pulse Ox 95 Oxygen Delivery Method Weight Weight: 91.989 kg Body Mass Index (BMI) 30.8 Physical Exam Const alert and oriented x3 General Appearance: cooperative HEENT normocephalic, head/scalp atraumatic, EAC's normal and TM's normal bilaterally Eyes PERRL and EOMs intact bilaterally Pupil: sluggish Neck no lymphadenopathy, supple and no JVD General: trachea midline Lymph Lymphatic: no lymphadenopathy noted, lymphedema and lymphadenopathy Resp normal respiratory effort, normal air movement and clear to auscultation bilaterally Cardio regular rate, regular rhythm and peripheral pulses 2+ throughout GI soft to palpation, non-tender and non-distended Extremity normal capillary refill and no clubbing, cyanosis or edema General Extremity: no tenderness to palpation of joints or extremities Skin no rashes or lesions noted General Skin Exam: turgor normal Lesions: no lesions Rashes: no rashes Neuro CN's II-XII intact bilaterally Speech: speech normal Motor Exam: strength 5/5 throughout; Negative for general weakness Psych thought process normal, cooperative and affect normal Appearance: appropriate Results Lab / Micro Data 12/08/23 18:03 12/08/23 18:03 Labs: Laboratory Results - last 24 hr 12/08/23 18:03: WBC 16.7 H, RBC 4.50 L, Hgb 12.9 L, Hct 39.7 L, MCV 88.2, MCH 28.7, MCHC 32.5, RDW Std Deviation 39.8, RDW Coeff of Job 12.3, Plt Count 361, MPV 9.6, Immature Gran % (Auto) 0.500, Neut % (Auto) 78.6 H, Lymph % (Auto) 11.2 L, [place] % (Auto) 8.5, Eos % (Auto) 1.0, Baso % (Auto) 0.2, Absolute Neuts (auto) 13.1 H, Absolute Lymphs (auto) 1.87, Nucleated RBC % 0, Sodium 132 L, Potassium 4.1, Chloride 99, Carbon Dioxide 26.0, Anion Gap 7, BUN 28 H, Creatinine 2.13 H, Estim Creat Clear Calc 38.01, Est GFR (MDRD) Af Amer 40 L, Est GFR (MDRD) Non-Af 33 L, BUN/Creatinine Ratio 13.1, Glucose 123 H, Lactic Acid 1.3, Calcium 10.0 12/08/23 19:02: Urine Color Yellow, Urine Clarity Clear, Urine pH 6.0, Ur Specific [place] 1.010, Urine Protein 30 H, Urine Glucose (UA) Normal, Urine Ketones Negative, Urine Occult Blood 250 H, Urine Nitrite Negative, Urine Bilirubin Negative, Urine Urobilinogen Normal, Ur Leukocyte Esterase 100 H, Urine RBC 10-25 SEEN, Urine WBC 5-10 SEEN, Ur Squamous Epith Cells 0-5 SEEN, Urine Bacteria 1+, Urine Mucus 0 SEEN Imaging Radiology Impression Abdomen/Pelvis CT 12/08/23 17:45 IMPRESSION: Moderate right hydronephrosis due to a distal ureterolith as above. Multiple smaller bilateral nonobstructing nephroliths. Electronically Signed: Tristen Freire MD at 20:52 EDT Reading Location ID and State: [facility] / [place] Tel , Service support , Assessment & Plan Assessment/Plan (1) Intractable pain: (2) Hydronephrosis: (3) Urolithiasis: PLAN: plan to laser stones and place stent.
--- NOTE | 2023-12-09 08:06 | DCINST_ITS ---
Discharge Instructions Diet Discharge Diet: No restrictions and Light diet - advance as tolerated Activity Discharge Activity: Return to Normal Activity Dressing / Incision Call your doctor if you observe: Fever of 101 or Higher and Uncontrolled pain Follow Up Care Please Follow Up With: Dimitri Sevilla MD When: call [phone] I need to see you to remove stent in office Test Results: Test results from this visit will be discussed in further detail at your follow- up appointment, if applicable. Discharge Plan Admission Admit Date/Time: 12/08/23 22:58 Primary Reason for Your Visit: laser right stones Attending Provider: Dimitri Sevilla Primary Care Provider: Alex Chowdhury Discharge Orders/Prescriptions Prescriptions: New ciprofloxacin HCl [Cipro] 500 mg tablet 500 mg PO BID Qty: 10 0RF tamsulosin 0.4 mg capsule 0.4 mg PO DAILY Qty: 10 0RF phenazopyridine [Pyridium] 100 mg tablet 100 mg PO TID PRN (Reason: burinig with urination) Qty: 14 0RF oxycodone 5 mg tablet 5 mg PO Q6H PRN (Reason: pain) 7 Days Qty: 14 0RF No Action oxycodone-acetaminophen 5-325 mg tablet 1 tab PO BID PRN PRN (Reason: pain) ondansetron HCl 8 mg tablet 8 mg PO Q8H PRN PRN (Reason: nausea/vomiting) Referrals / Follow Up: Diimtri Sevilla MD [Med Staff - Active Staff] - Alex Chowdhury MD [Primary Care Provider] - Disposition Disposition (needs filled in before D/C Order can be placed): Home, Self Care
--- NOTE | 2023-12-09 08:52 | OP.PCM_ITS ---
Report of Operation Date of Procedure: 12/09/23 Pre-Operative Diagnosis: Multiple stone fragments in the distal right ureter af ter prior treatment Post-Operative Diagnosis: Same Surgery/Procedure Performed:: cystoscopy, right ureteroscopy laser lithotripsy of stones and right stent placement Description of Surgical Findings:: 68-year-old male who presented with Steinstrasse and severe obstruction the multiple stones in the distal ureter. He was admitted to the hospital pain control today when taken to surgery to laser and remove the stones in the distal ureter and placed a stent. Patient was taken back to the operating room after s mooth induction of anesthesia by Dr. Gill he was placed in dorsolithotomy position. Penis and testicles were prepped and draped in usual sterile fashion. I went into the bladder with a semirigid 7 Senegalese ureteroscope was able to get into the bladder quite easily I then got to the ureter on the right side there was a lot of impacted stones in the ureter but I was able to use ureteroscopy to flush most of the stones out and then I used a 200 ?m laser fiber settings were 1 J and 2 Hz and went through and lasered the stones piece by piece and many the stones with 10 fly out into the bladder and then trailing up the ureter all the way up and cleared out all the stones in the ureter there was a many many fragments in the ureter cleared out. After this was done then I backed out of the ureter I decided to leave the stent is a lot of inflammation of the ureter and he wanted risk the chance of him coming back again for second time so a wire was put up on the right side and then over the wire I placed a stent it was a 6 [place]eg[place]e by 26 cm stent once the stent was in good position I pulled the wire and the stent coil in the kidney bladder good position and the patient was given instructions to call my office and make an arrangement to have the stent removed this . Surgeon: Dimitri Sevilla Type of Anesthesia: General Drains: stent Estimated Blood Loss (mL): 0 Procedure Start Time: 08:00 Procedure Stop Time: 08:53 Admit VTE Documentation VTE Present on Admission: No VTE Mechan Device Prophylaxis: SCD's VTE Pharm Prophylaxis ordered?: No
--- NOTE | 2023-12-09 09:05 | PCM.POST.ANE ---
Anesthesia: Postop Eval I Current Vital Signs Temperature: 98.4 F Pulse Rate: 79 Blood Pressure: 127/77 Respiratory Rate: 16 Pulse Ox: 96 Assessment Airway patent: Yes Spontaneous unlabored respirations: Yes nausea: No Vomiting: No Anesthesia Complication: No Fluid Hydration Crystalloid volume administer (ml): 1,000 Total IV fluid infused: 1,000 Progress Note Anesthesia document: Postop Eval 1 completed: Yes
--- NOTE | 2023-12-09 09:06 | PCM.POSTANE2 ---
Anesthesia Postop Eval I Sum Postop Eval Completion status Anesthesia document: Postop Eval 1 completed: Yes Anesthesia Postop Eval I Summary Anesthesia Postop Eval I Summary: Anesthesia Postop Eval I: Assessment Summary Airway patent Yes 12/09/23 09:05 Spontaneous unlabored Yes 12/09/23 09:05 respirations Mental status nausea No 12/09/23 09:05 Vomiting No 12/09/23 09:05 Anesthesia Postop Eval I: Fluid Summary Crystalloid volume administer 1,000 12/09/23 09:05 (ml) Colloids volume administered ( ml) Blood Product volume administered (ml) Total IV fluid infused 1,000 12/09/23 09:05 Anesthesia Postop Eval I: Summary Notes Anesthesia Complication No 12/09/23 09:05 Anesthesia Complication Comment: Post-operative progress note Anesthesia: Postop Eval II Evaluation Mental status: Awake Pain Level: 0 nausea: No Vomiting: No
--- NOTE | 2023-12-09 12:05 | NURSING ---
At 1000am pt up to bathroom with my assistance. Pt had multiple tiny stones noted in the toilet bowl where there was not water. Pt did have some blood mixed with urine. pt states that he has had blood in his urine recently that that is nothing new.
[2023-12-17 18:07] LABS: Ca Oxalate, Monohydrate 50 % (.); Size 3x3 mm (.); Uric Acid 50 % (.)
== END 2023-12-09 12:09 | disposition home or self-care (01) ==
LOC: ED 21:03 → MS3 21:20
PROVIDERS: Admitting Provider Urology; Emergency Provider Emergency Medicine; PCP Family Medicine; Referring Provider Emergency Medicine; Visit Provider Urology
PROC: (CPT 52356; principal; 2023-12-09 08:00)
DX: N13.2 Hydronephrosis with renal and ureteral calculous obstruction (principal)
CPT/HCPCS: 52356; 00918; 74176; 76000; 80048; 81001; 82360; 83605; 85025; 88300; 93005; 96365; 96366; 96375; 96376; 99221; 99285; J7050; A4216; C1769; C2617; G0378; J2405; J3490

== ENCOUNTER → 2024-01-14 | Outpatient (CLI) | payer MEDICARE, OTHER, SELFPAY ==
--- NOTE | 2024-01-14 14:00 | RAD_ITS ---
STUDY: X-RAY - ABDOMEN/PELVIS REASON FOR EXAM: Male, 68 years old. CALCULUS OF KIDNEY TECHNIQUE: Single AP view of the abdomen / pelvis. COMPARISON: None. FINDINGS: Normal visualized lung bases. There is an unremarkable bowel gas pattern. 2 calcific opacities project over the left kidney consistent with left renal stones. No definite ureteral stone. Normal soft tissue structures. Normal visualized osseous structures. RAD/Abdomen Single View IMPRESSION: Suspect 2 left renal stones. Electronically Signed: Abbe Ventura MD at 8:25 EST ,
[2024-01-14 14:26] LABS: PSA,Total- Diagnostic 7.67 ng/mL (0.0-4.0)
== END | disposition home or self-care (01) ==
LOC: LAB 13:31
PROVIDERS: PCP Family Medicine; Referring Provider Urology; Visit Provider Urology
DX: R97.20 Elevated prostate specific antigen [PSA] (principal); N20.0 Calculus of kidney
CPT/HCPCS: 36415; 74018; 84153

== ENCOUNTER → 2024-02-26 | Outpatient (CLI) | payer MEDICARE, OTHER, SELFPAY ==
--- NOTE | 2024-02-26 07:57 | MRI_ITS ---
STUDY: MR PROSTATE GLAND/ PELVIS WITH T WITHOUT CONTRAST REASON FOR EXAM: Male, 68 years old. ELEVATED PSA 7.67 01/14/24 TECHNIQUE: Standardized fat and water weighted pulse sequences were obtained in all 3 orthogonal planes, pre-and post contrast administration. IV CLARISCAN 19ml was administered for the contrast portion of the examination. COMPARISON: None. FINDINGS: Prostate gland volume/size: 4.96 x 3.80 x 5.63 cm which is mildly enlarged. Anterior fibromuscular stroma: Normal. Peripheral zone: 9.4 mm small low signal nodule in the posterior and most medial aspect of the left peripheral zone near the midline (see image #18/32 series 9) demonstrates intense enhancement on the postcontrast study and bright diffusion weighted and dark ADC signal consistent with a malignant neoplasm. Scattered fibrotic opacities throughout the remaining bilateral peripheral zones which is fairly symmetric. No additional nodules are seen. Preserved bright signal in the remaining aspects of the peripheral zones. Central zone: Diffusely nodular and heterogeneous and hyperplastic with intervening cysts and fibrotic strands bilaterally, with diffuse postcontrast enhancement. No distinct malignant lesion is seen. Transitional zone: Diffusely nodular and heterogeneous and hyperplastic with intervening cysts and fibrotic strands bilaterally, with diffuse postcontrast enhancement. No distinct malignant lesion is seen. Prostate capsule: Intact: Seminal vesicles: Normal fluid signal bilaterally. Pelvic sidewall lymphadenopathy: None demonstrated. Bony structures: No lytic or blastic or aggressive process. No demonstrated enhancing lesions. No bone marrow edema or infiltrative marrow replacement process is seen. No visualized pathologic fractures. Bladder: No demonstrated masses or filling defects/stones. Normal urinary bladder. Normal visualized small intestine. There are multiple colonic diverticula of the sigmoid colon consistent with chronic diverticulosis. Vessels: No significant or large aneurysm is demonstrated. Normal osseous structures. Normal abdominal wall. MRI/Pelvis W/WO Contrast IMPRESSION: Left peripheral zone appearing nodule 1. Peripheral zone: 9.4 mm small low signal nodule in the posterior and most medial aspect of the left peripheral zone near the midline (see image #18/32 series 9) demonstrates intense enhancement on the postcontrast study and bright diffusion weighted and dark ADC signal consistent with a malignant neoplasm. Scattered fibrotic opacities throughout the remaining bilateral peripheral zones which is fairly symmetric. No additional nodules are seen. Preserved bright signal in the remaining aspects of the peripheral zones. 2. PI-RADS 5: very high (clinically significant cancer is highly likely to be present) 3. Targeted image guided biopsy of nodules or area of interest can be performed for definitive pathologic assessment of the tissue and diagnosis 4. Prostate PET/CT exam can also be performed to determine if there is viable malignant neoplasm in the prostate gland. Prostate MRI reference: 15-30% of prostate cancers can go undetected on Prostate MRI. Monitoring and assessment by Primary physician, Urology, and oncology service recommended and treated clnically. (Cancers ([place]). 2022Jan 31;15(53):5886. doi: [id number] Prostate Cancers Invisible on Multiparametric MRI: Pathologic Features in Correlation with Whole-Mount Prostatectomy Sascha Elias 1,2,*, Manohar Cherry 3, Otoniel Fong 1,2, Verónica Andrade 1,2, Carlos Lind 4, Braydon Navarro 5, Gildardo Song 6, Abdiel Hutchinson 1,2, Huseyin Almanza 1,2) Reference information: Normal prostate tissue Benign prostatic hypertrophy cancer/tumor - low signal peripheral , transitional, and central zones malignancy appears as bright on DWI and low signal on ADC map Prostate imaging-reporting and data system (PI-RADS) PI-RADS 1: very low (clinically significant cancer is highly unlikely to be present) PI-RADS 2: low (clinically significant cancer is unlikely to be present) PI-RADS 3: intermediate (the presence of clinically significant cancer is equivocal) PI-RADS 4: high (clinically significant cancer is likely to be present) PI-RADS 5: very high (clinically significant cancer is highly likely to be present) PI-RADS X: component of exam technically inadequate or not performed Prostate malignancy distribution: Peripheral zone: 70-80% Transitional zone: 10-20% Central zone: 5% or less Electronically Signed: Jace Villela MD at 9:52 EST ,
[2024-02-26 08:43] LABS: CREATININE FINGERSTICK 1.1 mg/dL (0.70-1.30); EGFR FINGERSTICK > 60.0000 mL/min (>60)
== END | disposition home or self-care (01) ==
LOC: MRI 07:52
PROVIDERS: PCP Family Medicine; Referring Provider Urology; Visit Provider Urology
DX: R97.20 Elevated prostate specific antigen [PSA] (principal)
CPT/HCPCS: 72197; A9575

== ENCOUNTER → 2024-03-17 | Outpatient (CLI) | payer MEDICARE, OTHER, SELFPAY ==
--- NOTE | 2024-03-17 | IMM_PTH ---
PATIENT: BONNIE JOHNSON LOC: [facility] U#:[id number] AGE/SX: 68/M ROOM: RE03/17/[address]: Dr. Dimitri Sevilla MD : 1955 BED: DIS: 03/17/2024 SPEC #: [id number] RECD: 03/19/24 10:42 STATUS: PARKER REQ #: [id number] FELICIANO: 03/17/24 00:[address]: Dimitri Sevilla DEPT: IMMUNOHISTOCHEMISTRY RECD BY: Felipe Alberts ENTERED: 03/19/24 10:42 SP TYPE: IMMUNO OTHR DR: Dr. Alex Chowdhury MD Tissues: PROSTATE LEFT Procedures: 34BE12 (add) P40 (initial) PHYSICIAN & INSTITUTION [place] [id number] SPECIMEN INFORMATION: Tissue Source: Left base Clinical Info: Elevated PSA Specimen Number: [id number] Blocks 1&2 CPT code: 02994,45058 METHODOLOGY: Deparaffinized sections of prefer/formalin-fixed tissue or PAP/DQ stained slides are incubated with monoclonal/polyclonal antibodies/oligonucleotide probes. Localization is made via biotin free immunoperoxidase method. Appropriate controls are performed and reacted as expected. Results on target cell population are indicated in the following table: RESULTS: ANTIBODY / CLONE RESULT Block 1 P40 (BC28) negative 34BE12 (34BE12) negative Block 2 P40 (BC28) positive 34BE12 (34BE12) positive These tests were developed and their performance characteristics determined by [facility]. They may not have been cleared or approved by the U.S. Food and Drug Administration. The FDA has determined that such clearance or approval is not necessary. The above immunohistochemical/dualISH markers are ordered and reviewed by the Pathologist. INTERPRETATION: Prostate, left base, core biopsy: Adenocarcinoma. 03/20/2024
--- NOTE | 2024-03-17 08:00 | PROSB_PTH ---
PATIENT: [facility]ONN[facility]ON [id number] AGE/SX: 68/M ROOM: RE03/17/[address]: Dr. Dimitri Sevilla MD : 1955 BED: DIS: 03/17/2024 SPEC #: [id number] RECD: 03/18/24 09:38 STATUS: PARKER REAlejandro #: [id number] FELICIANO: 03/17/24 08:[address]: Dimitri Sevilla DEPT: SURGICAL PATHOLOGY RECD BY: Alicia Heredia ENTERED: 03/18/24 09:38 SP TYPE: PROST BX OTHR DR: Dr. Alex Chowdhury MD Tissues: Prostate, NOS Procedures: Surgery Specimen Level IV HEADER OPERATION: Prostate biopsy PRE-OP DIAGNOSIS: Elevated PSA TISSUE SUBMITTED: Left base MICROSCOPIC DIAGNOSIS Prostate, left base, core biopsy: Prostatic adenocarcinoma. Radnor grade: 3+3=6 Number of cores involved: 1/4 Proportion of tissue involved: <5% Perineural invasion: Not identified. Greatest tumor length: 1.5 mm 03/19/2024 COMMENT Immunohistochemistry ([id number]) supports the above diagnosis. MICROSCOPIC DESCRIPTION Slides are reviewed. GROSS DESCRIPTION Received is one container designated prostate, left base. The specimen consists of four elongated fragments of light marcum-white soft tissue measuring 1.1 to 1.5 cm in length and 0.1 cm in diameter. The specimen is totally submitted in two cassettes. 03/18/2024 TC:0 CPT: G0146 ADDENDUM ADDENDUM ADDENDUM ADDENDUM ADDENDUM ADDENDUM ADDENDUM ADDENDUM ADDENDUM ADDENDUM ADDENDUM ADDENDUM ADDENDUM ADDENDUM ADDENDUM ADDENDUM 04/03/2024 12:11 ADDENDUM 04/03/2024 12:11 ADDENDUM 04/03/2024 12:11 ADDENDUM 04/03/2024 12:11 ADDENDUM 04/03/2024 12:11 SLIDE CONSULTATION FROM [employer] INTERPRETATION: Prostate, left base, biopsy: Adenocarcinoma of prostate. Lorena Score: 3+3=6 (Grade Group 1). Tumor is present in 1 out of 4 cores, occupying 8%, 0%, 0% and 0% of the involved cores. Total involvement: 2% Perineural invasion is not identified. Submitted immunohistochemical stains for 34BE12 (negative for basal cells) and p40 ( negative for basal cells) supports the above diagnosis. Please see complete report in e-chart or EMR
== END | disposition home or self-care (01) ==
LOC: LABSPEC 15:38
PROVIDERS: PCP Family Medicine; Referring Provider Urology; Visit Provider Urology
DX: C61 Malignant neoplasm of prostate (principal); R97.20 Elevated prostate specific antigen [PSA]
CPT/HCPCS: 88305; 88341; 88342

== ENCOUNTER 2024-06-11 12:12 | Inpatient (IN) | payer MEDICARE, OTHER, SELFPAY ==
[2024-06-10 23:01] VITALS: BP 132/86; BP 159/85; BP 84/49; PULSE 130; PULSE 141; PULSE 151
[2024-06-11] VITALS (33 sets, daily range): BP systolic 129–173; BP diastolic 75–115; PULSE 52–130; RESP 14–20; TEMP 35.7–36.9; O2SAT 89–98; BMI 31.6
--- NOTE | 2024-06-11 07:14 | RAD_ITS ---
PROCEDURE: ABDOMEN SINGLE VIEW 06/11/2024 REASON FOR EXAM: PRE-OP TECHNIQUE: Single view abdomen. COMPARISON: Same day CT FINDINGS: See impression RAD/Abdomen Single View IMPRESSION: 2 left-sided renal calculi, each measuring 5-6 mm. Interval removal of the lef t ureteral stent. Nonobstructive bowel gas pattern. Mild degenerative changes of the spine and hips. Reading Location: [facility]
[2024-06-11] MEDS: Lactated Ringers 1,000 ML 15 ML IV (07:54)
--- NOTE | 2024-06-11 08:02 | PCM.HP.STD ---
HPI - General General Date of Service: 06/11/24 Chief Complaint: Left kidney stones HPI Narrative BONNIE JOHNSON, is a 68 M who presents for shockwave lithotripsy for multiple stones in the left kidney we may possibly place a stent in today. PFS Medical History (Updated 05/28/24 @ 13:08 by Olinda Lyons) Wears glasses Cancer Migraine headache Loss of consciousness Gastric reflux Non-smoker Hx of pilonidal cyst Kidney stones Allergy/AdvReac Type Severity Reaction Status Date / Time No Known Allergies Allergy Verified 06/11/24 07:48 Family History no significant family his Surgical History (Updated 05/28/24 @ 13:08 by Olinda Lyons) Hx of skin graft Hx of cystoscopy History of ankle surgery Social History Smoking Status: Never smoker Vital Signs Vital Signs Vital Signs: 06/11/24 07:44 06/11/24 07:44 Temperature 97.5 F L Temperature Source Temporal Pulse Rate 76 Respiratory Rate 20 H Respiratory Pattern Normal Blood Pressure 141/82 H Blood Pressure Mean 101 Blood Pressure Source Monitor Blood Pressure Position Semi-Fowlers Blood Pressure Location Left Arm Pulse Ox 96 Oxygen Delivery Method Room Air Weight Weight: 94.3 kg Body Mass Index (BMI) 31.6
--- NOTE | 2024-06-11 08:03 | PCM.DC ---
Discharge Instructions Diet Discharge Diet: No restrictions DC O2, CPAP, BIPAP needs Home O2 Discharge instructions: No Dressing / Incision Discharge Activity: Return to Normal Activity and May Not Drive (while taking narcotic pain medications.) Dressing / Incision Call your doctor if you observe: Fever of 101 or Higher Follow Up Care Please Follow Up With: Dimitri Sevilla MD When: Call [phone] for an appointment Test Results: Test results from this visit will be discussed in further detail at your follow-up appointment, if applicable. Discharge Plan Admission Attending Provider: Dimitri Sevilla Primary Care Provider: Alex Chowdhury Instructions Print Language: Azerbaijani Discharge Orders/Prescriptions Referrals / Follow Up: Alex Chowdhury MD [Primary Care Provider] - Disposition Disposition (needs filled in before D/C Order can be placed): Home, Self Care
--- NOTE | 2024-06-11 08:15 | PRE.ANES_ITS ---
ASA Classification* ASA Classification ASA Classification: 2 Assessment & Plan Anesthesia* Anesthesia Assessment Anesthesia Assessment: Discussed sedation and/or anesthesia options, risks, benefits, and alternatives with patient/parents/legal guardian/POA. Questions invited. The patient/parents/legal guardian/POA seems to understand and agrees to proceed with anesthesia plan. Reviewed the physical assessment, medical history, allergy history and patient home medications list prior to surgery/procedure/anesthetic and documented any changes. Performed airway and anesthesia risk assessments. Anesthesia Type Anesthesia Type: General Anesthesia Focused Assessment* Temperature: 97.5 F Pulse Rate: 76 Blood Pressure: 141/82 Respiratory Rate: 20 Pulse Ox: 96 Airway Assessment Mouth opens: >3 cm Mallampati Score: II Focused Labs Anesthesia Preop lab: CBC WBC 16.7 K/mm3 (4.4-11.0) H 12/08/23 18:03 4 RBC 4.50 M/mm3 (4.6-6.2) L 12/08/23 18:03 12/08/23 Hgb 12.9 g/dL (13.0-16.5) L 12/08/23 18:03 4 Hct 39.7 % (40-54) L 12/08/23 18:03 12/08/23 Plt Count 361 K/mm3 (150-450) 12/08/23 18:03 12/08/23 CHEMISTRY Potassium 4.1 mmol/L (3.5-5.1) 12/08/23 18:03 12/08/23 Sodium 132 mmol/L (136-145) L 12/08/23 18:03 12/08/23 BUN 28 mg/dL (7-18) H 12/08/23 18:03 12/08/23 Creatinine 2.13 mg/dL (0.70-1.30) H 12/08/23 18:03 Glucose 123 mg/dL (74-106) H 12/08/23 18:03 12/08/23 COAG Pre-Assessment Diagnosis/Proposed Procedure Planned Operative Procedure(s): (L) ESWL,Cystocopy Insertion Stent Anesthesia History Anesthesia History - online education manager: Anesthesia History - online education manager Hx Hospitalization Yes: 12/08/23 KIDNEY STONES 05/28/24 13:09 Any Problems With Anesthesia No 05/28/24 13:09 Cholinesterase deficiency No 05/28/24 13:09 You/Your Family Experience No 05/28/24 13:09 fever (hyperthermia) with Relationship Recent Exposure to Contagious No 06/11/24 07:44 Disease Does patient have nerve No 05/28/24 13:09 stimulator Patient instructed to have device shut off --Does patient have Pacemaker No 06/11/24 07:44 or ICD? When Was Last Pacemaker Check QUESTION #4 FULL TEXT: You/Your Family Experience fever (hyperthermia) with Anesthesia Last Oral Intake Last Oral intake: Last Oral Intake NPO since 00:00 06/11/24 07:44 Meds taken in AM with sips of No 06/11/24 07:44 water? Meds patient instructed to take am of surgery PONV PONV - online education manager: PONV - online education manager Female No 05/28/24 13:09 HX of Motion Sickness Yes 05/28/24 13:09 HX of N/V After Surgery No 05/28/24 13:09 Non-Smoker Yes 05/28/24 13:09 Duration of Surgery greater No 05/28/24 13:09 than 60 minutes Number of Risk Factors 2 05/28/24 13:09 PONV Score Moderate Risk 05/28/24 13:09 Height & Weight Height & Weight: Anesthesia: Height & Weight Height 5 ft 8 in 06/11/24 07:44 Weight: 94.3 kg 06/11/24 07:44 Body Mass Index (BMI) 31.6 06/11/24 07:44 Respiratory Assessment Respiratory Assessment - online education manager: Respiratory Tract Infection Hx - online education manager Hx Respiratory Tract Infection No 05/28/24 13:09 STOP Sleep Apnea STOP Sleep Apnea - online education manager: STOP Sleep Apnea - online education manager Hx Hypertension No 05/28/24 13:09 Hx Sleep Apnea No 05/28/24 13:09 CPAP BIPAP Do you snore loudly (louder No 05/28/24 13:09 than talking or can be heard Do you often feel tired/ No 05/28/24 13:09 fatigued/ sleepy during daytime? Has anyone observed you stop No 05/28/24 13:09 breathing during sleep? STOP Results Negative 05/28/24 13:09 QUESTION #5 FULL TEXT : Do you snore loudly (louder than talking or can be heard through closed doors)? Tobacco Use History Tobacco Use History - online education manager: Tobacco Use History - online education manager Tobacco Use Smoking Status Never smoker 05/28/24 13:09 Hx Tobacco Use No 05/28/24 13:09 Years Smoking Packs Smoked per Day Smoking Cessation Date was within the last 15 years Hx Smoking Cessation Date Hx Smoking Cessation Counseling Hematologic Medial History Hematologic Hx - online education manager: Hematologic Medical Hx - simulation analyst Hx of Blood Transfusion No 05/28/24 13:09 Hx of Transfusion in last 3 No 05/28/24 13:09 Months Date of Last Transfusion (if within last 3 months) Ever experience any problems No 05/28/24 13:09 with transfusion(s)? Specify any problems Hx of Preganancy in last 3 N/A 05/28/24 13:09 Months Nurse Filling Out Transfusion VCHRISTIN 05/28/24 13:09 & Questions: Date: 05/28/24 05/28/24 13:09 Time: 13:10 05/28/24 13:09 Patient unable to answer at this time (ie. confused, unrespo /Reproduction History /Reproductive History - online education manager: /Reproductive Hx- online education manager Hx Now No 05/28/24 13:09 Gestational Age (in weeks): EDC: Hx Hx Para Hx Section SAB No 05/28/24 13:09 Active Medications Active Medications: Current Medications Generic Name Dose Route Start Last Admin Trade Name Freq PRN Reason Stop Dose Admin Cefazolin Sodium 2 gm/ N/A 20 mls @ 400 mls/hr 06/11/24 09:05 IV 06/11/24 09:07 INTRAOP ONE Lactated Ringer's 1,000 mls @ 15 mls/hr 06/11/24 07:30 06/11/24 07:54 IV 15 mls/hr .Q48H MARI Administration PFSH Medical History Wears glasses Cancer Migraine headache Loss of consciousness Gastric reflux Non-smoker Hx of pilonidal cyst Kidney stones Allergy/AdvReac Type Severity Reaction Status Date / Time No Known Allergies Allergy Verified 06/11/24 07:48 Surgical History Hx of skin graft Hx of cystoscopy History of ankle surgery Social History Smoking Status: Never smoker Review of Systems (Anesthesia) ROS Narrative System reviewed and no additional complaints, except as documented.
[2024-06-11] MEDS: Cefazolin 2 GM in Syringe IV (09:08)
--- NOTE | 2024-06-11 09:18 | PCM.OPRPT ---
Operative Report (Standard) Operative Information Date of Procedure: 06/11/24 Pre-Operative Diagnosis: Left kidney stone Post-Operative Diagnosis: The same Surgery/Procedure Performed: Cystoscopy left stent placement and left extracorporeal shockwave lithotripsy chicken stuffer: No Type of Anesthesia: General RN Documented Start/Stop Times: Operation Date: 06/11/24 09:05 Case Time Into Pre-Op 06/11/24 07:24 Anesthesia Start 06/11/24 09:01 Into Room 06/11/24 09:01 Out of Pre-Op 06/11/24 09:08 Procedure Start 06/11/24 09:14 Procedure End 06/11/24 09:56 Anesthesia End 06/11/24 10:02 Out of Room 06/11/24 10:02 Procedure Start Time: 09:15 Procedure Stop Time: 10:02 Select all DRAINS/GRAFTS/IMPLANTS that apply: Drains Drain details: left stent Estimated Blood Loss: 0 Specimen collected: No Description of surgery: Patient presents to the hospital for treatment of a kidney stone with shockwave lithotripsy. In the preoperative area and x-ray was done to confirm the location of the stone. The x-ray was reviewed and the stone location was reviewed. In the preoperative setting I spoke with the patient regarding the treatment of the stone how the treatment would be conducted and the expectations after surgery. The patient understands there is a risk of bleeding and infection. Also discussed the very rare risk of hematoma or damage to the kidney. We also discussed the risk that the shockwave machine will fail to break the stone adequately and that the patient may need other surgical procedures. I also discussed the possibility that the patient may need a stent after the procedure. After reviewing the procedure with the patient, the patient is signed the consent form all the patient's questions were addressed and was taken back to the operating room for treatment of a kidney stone. Patient was taken back to the operating room, the patient was identified by the nursing staff, I identified the side of the treatment and the patient side of treatment had been marked by my initials. The patient underwent general anesthetic and was placed supine on the lithotripter table. I then used fluoroscopy to identify the stone on the left side. The urethra and genitals were prepped and draped in usual sterile fashion. Using a 21 Emirati rigid cystourethroscope the entire length of the urethra was normal then went into the bladder. Identified the trigone the left and right ureteral orifice. I then cannulated the left ureteral orifice and advanced a wire up into the kidney. I then backloaded a 5 Emirati open ended catheter over the wire and injected contrast to delineate the anatomy. After the retrograde was performed I then used fluoroscopic images and guidance to advanced a wire up into the kidney and over the 0.038 glidewire I advanced a 6 Emirati by 26 cm double pigtail stent. I then pulled the 0.038 Glidewire off and the stent coiled in the kidney bladder good position. The bladder was then drained. We confirmed the position of the stent by fluoroscopy. I then positioned the patient under the lithotripter and I used triangulation technique to identify the location of the stone and then I made sure that the stone was engaged in the F2 focal point of F2 Donier lithoprior machine. Once the patient was positioned appropriately and the stone was identified and placed in the F2 focal point of the lithotripter machine I then proceeded with shockwave lithotripsy. In the beginning the shockwave was delivered at a rate of 90 shocks per minute, anesthesia monitored the EKG for any ectopy. The power was slowly increased to 5 kV and subsequently at the 7 kV. I then proceeded with the treatment with shock wave therapy and around during the treatment to make sure the stone stayed in the F2 focal point during the entire treatment and after 3000 shockwaves were delivered to the stone under fluoroscopic guidance the treatment was completed. The patient was given instructions to call the office to make an a follow-up appointment with an x-ray to evaluate the success of the treatment, patient understands that its possible the stones may need another procedure. At this point the patient's anesthetic was reversed patient was extubated and taken back to the PACU in stable condition. Surgical Findings: stone in the left kidney Complications Complications: No Admit VTE Documentation VTE Present on Admission: No VTE Mechan Device Prophylaxis: SCD's VTE Pharm Prophylaxis ordered?: No
--- NOTE | 2024-06-11 10:06 | PCM.POST.ANE ---
Anesthesia: Postop Eval I Current Vital Signs Temperature: 98.1 F Pulse Rate: 69 Blood Pressure: 149/84 Respiratory Rate: 14 Pulse Ox: 97 Oxygen Delivery Method: Room Air Assessment Airway patent: Yes Spontaneous unlabored respirations: Yes Mental status: Awake and Calm nausea: No Vomiting: No Anesthesia Complication: No Fluid Hydration Crystalloid volume administer (ml): 700 Total IV fluid infused: 700 Progress Note Anesthesia document: Postop Eval 1 completed: Yes
[2024-06-11] MEDS: Ketorolac 15 MG/ML Vial IV (10:20)
--- NOTE | 2024-06-11 10:22 | POSTOPAN2_ITS ---
Anesthesia Postop Eval I Sum Postop Eval Completion status Anesthesia document: Postop Eval 1 completed: Yes Anesthesia Postop Eval I Summary Anesthesia Postop Eval I Summary: Anesthesia Postop Eval I: Assessment Summary Airway patent Yes 06/11/24 10:07 [email or web address] Spontaneous unlabored Yes 06/11/24 10:07 [email or web address] respirations Mental status Awake,Calm 06/11/24 10:07 [email or web address] nausea No 06/11/24 10:07 [email or web address] Vomiting No 06/11/24 10:07 [email or web address] Anesthesia Postop Eval I: Fluid Summary Crystalloid volume administer 700 06/11/24 10:07 [email or web address] (ml) Colloids volume administered ( ml) Blood Product volume administered (ml) Total IV fluid infused 700 06/11/24 10:07 [email or web address] Anesthesia Postop Eval I: Summary Notes Anesthesia Complication No 06/11/24 10:07 [email or web address] Anesthesia Complication Comment: Post-operative progress note Anesthesia: Postop Eval II Evaluation Mental status: Awake Pain Level: 0 nausea: No Vomiting: No
--- NOTE | 2024-06-11 10:22 | PCM.POSTANE2 ---
Anesthesia Postop Eval I Sum Postop Eval Completion status Anesthesia document: Postop Eval 1 completed: Yes Anesthesia Postop Eval I Summary Anesthesia Postop Eval I Summary: Anesthesia Postop Eval I: Assessment Summary Airway patent Yes 06/11/24 10:07 [email or web address] Spontaneous unlabored Yes 06/11/24 10:07 [email or web address] respirations Mental status Awake,Calm 06/11/24 10:07 [email or web address] nausea No 06/11/24 10:07 [email or web address] Vomiting No 06/11/24 10:07 [email or web address] Anesthesia Postop Eval I: Fluid Summary Crystalloid volume administer 700 06/11/24 10:07 [email or web address] (ml) Colloids volume administered ( ml) Blood Product volume administered (ml) Total IV fluid infused 700 06/11/24 10:07 [email or web address] Anesthesia Postop Eval I: Summary Notes Anesthesia Complication No 06/11/24 10:07 [email or web address] Anesthesia Complication Comment: Post-operative progress note Anesthesia: Postop Eval II Evaluation Mental status: Awake Pain Level: 0 nausea: No Vomiting: No
--- NOTE | 2024-06-11 11:57 | CT_ITS ---
PROCEDURE: ABDOMEN/PELVIS WITHOUT CONT 06/11/2024 REASON FOR EXAM: POST OP FLANK PAIN after left stent placement. TECHNIQUE: Abdomen and pelvis CT without intravenous contrast. Noncontrast technique limits evaluation of the abdominal and pelvic viscera. Coronal and Sagittal reconstruction series were provided. One or more dose reduction techniques were used (e.g., Automated exposure control, adjustment of the mA and/or kV according to patient size, use of iterative reconstruction technique). PATIENT PREPARATION: Per protocol ORAL CONTRAST TYPE: None. COMPARISON: Abdominal radiograph earlier same day. FINDINGS: Visualization is limited without the use of IV contrast. Lung bases: Consolidation/atelectasis within the dependent bibasilar lungs. The heart is normal in size with coronary artery calcifications. Liver: The unopacified liver is normal in size with diffuse hepatic steatosis. Small right hepatic hypodensity, likely a cyst. No biliary ductal dilation. Gallbladder: No radiopaque stones within the gallbladder. Spleen: Normal-size with mild displacement superiorly due to the left renal hematoma. Pancreas: The unopacified pancreas is unremarkable. Adrenals: Nodularity of the right adrenal gland. Unremarkable left adrenal gland. Kidneys: Status post reported left double-J ureteral stent with the proximal portion incompletely coiled in the superior left renal collecting system, and the distal portion coiled in the urinary bladder. Left perirenal and subcapsular hematoma along the posterolateral kidney measuring at least 7.6 x 4.3 cm (series 2, image 72). Punctate bilateral renal calculi. Right renal cysts and additional hypodensities, incompletely evaluated. Bladder: Nondependent air within the urinary bladder, likely secondary to recent instrumentation. Reproductive Organs: Unremarkable. Bowel: The bowel loops are normal in caliber. No ascites or pneumoperitoneum. Moderate pancolonic diverticulosis. Normal appendix. Lymph nodes: Visualization is limited without the use of IV contrast. Vasculature: Moderate calcific plaque of the aortoiliac vessels. Bones: Thoracolumbar spondylosis. Chronic appearing right rib fracture deformity. CT/Abdomen/Pelvis without Cont IMPRESSION: 1. Status post left double-J ureteral stent placement with left perirenal and s ubcapsular hematoma. Interventional radiology consultation is recommended. 2. Punctate bilateral renal calculi. 3. Diffuse hepatic steatosis. Dr. Noyola discussed findings with Dr. Sevilla via telephone at 12:42 pm on . Reading Location: [id number]
--- NOTE | 2024-06-11 12:10 | PCM.PN.BLA ---
Progress Note 68-year-old male with a stone in the left kidney he underwent cystoscopy stent placement shockwave lithotripsy in the postoperative area he was having a lot of pain in the left kidney a lot of flank pain so CT scan was done and he does have a small subcapsular hematoma around the left kidney so we will keep the patient overnight for pain control. Probably will hopefully the pain will subside by the morning and we will send him home tomorrow with pain medicine.
--- NOTE | 2024-06-11 13:25 | SUR.PHASEI ---
At approximatly 12:15, patient transferred to Phase 2. States pain is 2-3/10. No c/o nausea.
--- NOTE | 2024-06-11 13:26 | SUR.PHASEI ---
At 12:15, patient transferred back to PACU. He is having severe left flank pain that transfers through abdomen to the anterior abdomen. He rates pain as 8-10/10. c/o nausea. Decision has been made to admit patient to hospital overnight for observation
--- NOTE | 2024-06-11 13:56 | SUR.PHASEII ---
Patient to phase 2 at 1145. This nurse arrived for [facility] assessment and patient complaint of new, severe pain. This nurse spoke with pacu nurse and this is a new finding. This nurse called Dr. Sevilla and told him of patient's new, 10/10 pain that is not tolerable. Dr. Sevilla came to bedside to see patient. upon manual palpation is painful for patient. Ordered Stat CT abd pelvis. This nurse transported patient without delay; scanned at 1200. After scan, patient transferred to PACU for close monitoring and pain control. Dr. Sevilla again to bedside to discuss scan with and patient. Plan to admit patient for pain control. VSS in pacu. Pain score still 10/10 at that time. IV medications given and Dr. Pichardo with anesthesia to bedside to assess. Report given in pacu nurse.
[2024-06-11 14:48] LABS: Hematocrit 34.8 % (40-54); Hemoglobin 11.6 g/dL (13.0-16.5); Mean Corp Hgb Conc 33.3 g/dL (32-36); Mean Corpuscular Hgb 29.4 pg (27.0-32.0); Mean Corpuscular Volume 88.3 fL (80-94); Mean Platelet Vol. 10.3 fl (6.2-12.0); Platelet Count 316 K/mm3 (150-450); Red Blood Count 3.94 M/mm3 (4.6-6.2); White Blood Count 19.1 K/mm3 (4.4-11.0)
--- NOTE | 2024-06-11 15:09 | PCM.CONS.GEN ---
Assessment & Plan Assessment/Plan (1) Hematoma: (2) Kidney stones: PLAN: Plan 68-year-old gentleman being admitted with left renal angle pain with radiation to flank and left upper quadrant after lithotripsy and stenting of left kidney stone 1. Small subcapsular hematoma around left kidney: Hematoma is contained. Patient is being admitted by urologist Dr. Sevilla. Hospitalist consulted for overnight observation and management. Pain controlled. Does not need active interventions and expected to resolve itself. H&H 11.6/34.8%. Mild leukocytosis 19.1. Platelet count 316K. 2. Left kidney stone status post lithotripsy and stenting with severe pain from left flank to LUQ: Patient is not a Seth catheter. Bladder scan shows less than 100 mL. Pain control. 3. Patient history of chronic migraine headache but currently does not complain of headache. 4. DVT prophylaxis: Pharmacological prophylaxis contraindicated. Bilateral SCDs Laboratory Results 06/11/24 14:06: WBC 19.1 H, RBC 3.94 L, Hgb 11.6 L, Hct 34.8 L, MCV 88.3, MCH 29.4, MCHC 33.3, RDW Std Deviation 42.0, RDW Coeff of Job 13.0, Plt Count 316, MPV 10.3, Sodium 136, Potassium 4.6, Chloride 104, Carbon Dioxide 19.3 L, Anion Gap 13, BUN 21 H, Creatinine 1.48 H, Estim Creat Clear Calc 54.69, Est GFR (MDRD) Non-Af 52 L, BUN/Creatinine Ratio 14.1, Glucose 170 H, Calcium 9.5 HPI Consult Data Date of Consult: 06/11/24 HPI Narrative HPI Narrative: BONNIE JOHNSON, is a 68 M who was admitted after patient complaining of left flank pain radiating to left upper quadrant. Patient has left kidney stone for which she underwent cystoscopy, left stent and ESWL. Patient mild drowsy and lethargic. He denies hematuria or burning micturition. Does not have catheter. Patient had CT scan which shows a small subcapsular hematoma around left kidney therefore Dr. Corona decided to admit for overnight observation. [facility] Medical History (Updated 06/11/24 @ 16:[address] Dereck Mariscal MD) Wears glasses Cancer Migraine headache Loss of consciousness Gastric reflux Non-smoker Hx of pilonidal cyst Kidney stones Home Medications ?Medication ?Instructions ?Recorded ?Last Taken ?Type ciprofloxacin HCl 500 mg tablet 500 mg PO BID #14 tabs 06/11/24 Unknown Rx (Cipro) oxycodone 5 mg tablet 5 mg PO Q6H PRN pain 7 days #10 06/11/24 Unknown Rx tabs phenazopyridine 100 mg tablet 100 mg PO TID #20 tabs 06/11/24 Unknown Rx (Pyridium) tamsulosin 0.4 mg capsule (Flomax) 0.4 mg PO DAILY #10 caps 06/11/24 Unknown Rx Allergy/AdvReac Type Severity Reaction Status Date / Time No Known Allergies Allergy Verified 06/11/24 07:48 Surgical History Hx of skin graft Hx of cystoscopy History of ankle surgery Social History Smoking Status: Never smoker ROS ROS Narrative Patient complain of pain mainly over the left upper quadrant and left flank and renal angle. He denies any chronic heart disease lung disease. He denies a stroke. Denies dysuria or hematuria. Beyond that 14 system ROS unobtainable as patient mild drowsy/lethargic after anesthesia and pain medications including morphine and Dilaudid. Physical Exam Narrative Seen and examined General: Mild lethargic/drowsy after anesthesia and pain medication Dilaudid. HEENT: Atraumatic, PERRLA, EOMI, Normocephalic Oral: Oral mucosa dry. Neck: Supple, No JVD, Negative Carotid Bruits Chest wall/Lungs: Air entry diminished in bilateral lung bases. No crepitation/rhonchi Cardiovascular: Regular rate, Regular Rhythm, Normal S1, Normal S2, No M/G/R Abdomen: Bowel Sounds Present, Soft,Non-Distended : No dysuria. No Seth catheter. Tenderness over left renal angle and left upper quadrant. No suprapubic tenderness. Extremities: No edema, Capillary Refill Less than 3 Seconds Skin: No rashes, No breakdown Musculoskeletal: No Tenderness to Palpation of Joints or Extremities Neurological: Cranial nerves II-XII grossly intact, DTR 2+/4. No acute focal neurological deficit. Psych/Mental Status: Flat affect. Lab / Micro Data 06/11/24 14:06 06/11/24 14:06 Labs: Laboratory Results - last 24 hr 06/11/24 14:06: WBC 19.1 H, RBC 3.94 L, Hgb 11.6 L, Hct 34.8 L, MCV 88.3, MCH 29.4, MCHC 33.3, RDW Std Deviation 42.0, RDW Coeff of Job 13.0, Plt Count 316, MPV 10.3 Imaging Radiology Impression Abdomen/Pelvis CT 06/11/24 11:57 IMPRESSION: 1. Status post left double-J ureteral stent placement with left perirenal and subcapsular hematoma. Interventional radiology consultation is recommended. 2. Punctate bilateral renal calculi. 3. Diffuse hepatic steatosis. Dr. Noyola discussed findings with Dr. Sevilla via telephone at 12:42 pm on 06/11/24. Reading Location: [id number] Charges/Coding Visit Charges Office Visits / Consults: 36236 OV L4 Est 30min
[2024-06-11 15:31] LABS: Anion Gap 13 (5-15); BUN 21 mg/dL (4-19); BUN/Creat Ratio 14.1 RATIO (10-20); Calcium,Total 9.5 mg/dL (7.6-11.0); Carbon Dioxide 19.3 mmol/L (21.0-32.0); Chloride 104 mmol/L (98-108); Creatinine, Serum 1.48 mg/dL (0.70-1.20); EST Glomerular Filtration Rate 52 (>60); Estimated Creatinine Clearance 54.69 ml/min (50-250); Glucose 170 mg/dL (70-99); Potassium 4.6 mmol/L (3.3-5.1); Sodium Level 136 mmol/L (133-145)
[2024-06-11] MEDS: HYDROmorphone 0.5 MG/0.5 ML SYRINGE IV ×4 (16:05→23:50)
[2024-06-11] MEDS: Ondansetron 4 MG/2 ML Vial IV (18:38)
--- NOTE | 2024-06-11 19:22 | PCM.HOSP.N ---
Hospitalist Note Patient heart rate is high tachycardia, 125/min., Blood pressure is high, systolic 160s. Patient did not had good urine output though it is not accurately measured but seems less than 100 mL after surgery, probably 90 mL. Discussed with RN, Mariana. IV fluid normal saline +20 mEq KCl 1 L bolus 2 L of saline fluid to run at 125 mill per hour. Monitor intake and output with bladder scan and if needed can insert urine output. Discussed with RN to check orthostatic only sitting and supine after 1 L of IV fluid bolus. After adequate IV fluid replacement and correction of dehydration, if he still patient is tacky then metoprolol IV as needed ordered. Hydralazine 10 mg IV as needed for SBP more than 180 mmHg ordered if still patient hypotensive after placement of IV fluid. CBC and BMP stat labs ordered.Call nighttime hospitalist if needed.
[2024-06-11] MEDS: 0.9% Normal Saline (1000mL) 1,000 ML 999 ML IV (19:56)
[2024-06-11] MEDS: Ceftriaxone 1 GM/50 ML BAG IV (19:57)
[2024-06-11] MEDS: oxyCODONE 5 MG Tablet PO (20:20)
[2024-06-11] MEDS: Acetaminophen 325 MG Tablet 650 MG PO (20:20)
[2024-06-11 20:31] LABS: Absolute Lymphocyte Count 0.74 X10^3/uL (0.83-4.51); Absolute Neutrophil Count 18.3 X10^3/uL (2.0-7.7); Basophil# 0.04 X10^3/uL; Basophil% 0.2 % (0-1); Hematocrit 30.6 % (40-54); Hemoglobin 10.1 g/dL (13.0-16.5); Lymphocyte # 0.74 X10^3/ul (0.83-4.51); Lymphocyte % 3.6 % (19-41); Mean Corpuscular Hgb 29.7 pg (27.0-32.0); Mean Platelet Vol. 9.8 fl (6.2-12.0); Monocyte# 1.11 X10^3/uL; Monocyte% 5.5 % (0-10); NRBC Flagged by Analyzer 0 % (0-5); Neutrophil # 18.29 X10^3/uL (2.7-7.7); Platelet Count 326 K/mm3 (150-450); RBC Distribution Width CV 13.1 % (11.6-14.6); RBC Distribution Width SD 42.7 fl (35.1-43.9); White Blood Count 20.3 K/mm3 (4.4-11.0)
[2024-06-11 20:54] LABS: Anion Gap 15 (5-15); BUN 24 mg/dL (4-19); BUN/Creat Ratio 12.4 RATIO (10-20); Carbon Dioxide 19.5 mmol/L (21.0-32.0); Chloride 103 mmol/L (98-108); EST Glomerular Filtration Rate 38 (>60); Glucose 204 mg/dL (70-99); Potassium 5.5 mmol/L (3.3-5.1); Sodium Level 137 mmol/L (133-145)
[2024-06-11] MEDS: 0.9% Normal Saline (1000mL) 1,000 ML 125 ML IV (21:01)
[2024-06-12] VITALS (8 sets, daily range): BP systolic 102–163; BP diastolic 73–110; PULSE 90–124; RESP 16–20; TEMP 36.6–36.8; O2SAT 94–98
[2024-06-12] MEDS: 0.9% Normal Saline (500mL Bag) 500 ML IV (00:15)
[2024-06-12] MEDS: Docusate Sodium 100 MG Capsule 200 MG PO ×3 (01:06→20:42)
[2024-06-12] MEDS: 0.9% Normal Saline (1000mL) 1,000 ML 125 ML IV (02:06)
[2024-06-12] MEDS: Acetaminophen 325 MG Tablet 650 MG PO ×2 (02:11→05:56)
[2024-06-12 06:02] LABS: Hematocrit 26.9 % (40-54); Hemoglobin 8.9 g/dL (13.0-16.5); Mean Corp Hgb Conc 33.1 g/dL (32-36); Mean Corpuscular Hgb 29.5 pg (27.0-32.0); Mean Corpuscular Volume 89.1 fL (80-94); Mean Platelet Vol. 10.1 fl (6.2-12.0); Platelet Count 274 K/mm3 (150-450); RBC Distribution Width CV 13.1 % (11.6-14.6); RBC Distribution Width SD 42.5 fl (35.1-43.9); Red Blood Count 3.02 M/mm3 (4.6-6.2); White Blood Count 15.7 K/mm3 (4.4-11.0)
[2024-06-12 06:38] LABS: Anion Gap 10 (5-15); BUN 27 mg/dL (4-19); BUN/Creat Ratio 13.5 RATIO (10-20); Calcium,Total 8.9 mg/dL (7.6-11.0); Carbon Dioxide 21.5 mmol/L (21.0-32.0); Chloride 105 mmol/L (98-108); Creatinine, Serum 1.97 mg/dL (0.70-1.20); EST Glomerular Filtration Rate 37 (>60); Estimated Creatinine Clearance 41.09 ml/min (50-250); Glucose 169 mg/dL (70-99); Potassium 5.1 mmol/L (3.3-5.1); Sodium Level 137 mmol/L (133-145)
--- NOTE | 2024-06-12 08:03 | PN.URO_ITS ---
Subjective Subjective 68-year-old male who had an outpatient lithotripsy yesterday he had severe intractable pain right after the procedure suspicious for hemorrhage. We had a CT scan done that demonstrated a development of a subcapsular hematoma around the left kidney after the procedure. This is a known but rare complication after lithotripsy discussed with the patient. He has a stent in place. Hemoglobin overnight has dropped down to 8.9. But he is clinically stable hemoglobin is stable and he actually feels much better after the procedure his pain was 10 out of 10 currently at this point he rates his pain 3 out of 10 is much more comfortable. Urine output is adequate but still slightly low creatinine is 1.97. He was given fluid bolus to help with fluid. He does have a little hematuria but this can be normal from the stent and from the shockwave treatments. Need to continue to monitor CBC and BMP if he is stable then he might be able to go home tomorrow needs to do avoid any heavy activity rest and mostly bedrest and minimal activity. He can follow-up in my office next week. Unfortunately I am leaving town today for a plan conference spoke to the hospitalist and they are willing to manage the patient while I am away. But I will be available by cell phone if there is any questions or concerns. Objective Data Objective Data Vital Signs: Vital Signs Temp Pulse Resp BP Pulse Ox O2 Del Method O2 Flow Rate 97.9 F 107 H 16 147/84 H 98 Room Air 2 06/12/24 05:54 06/12/24 05:54 06/12/24 05:54 06/12/24 05:54 06/12/24 05:54 06/12/24 05:54 06/11/24 23:40 Oxygen Flow Rate (L/min) 2 Oxygen Delivery Method Room Air Weight: 94.3 kg Body Mass Index (BMI) 31.6 Intake & Output: Intake and Output for Last 24 Hours 06/10/24 06/11/24 06/12/24 23:59 23:59 23:59 Intake Total 2224.5 / 2524.5 1635.42 / 1635.42 Output Total 50 / 150 200 / 200 Balance 2174.5 / 2374.5 1435.42 / 1435.42 Lab / Micro Data 06/12/24 05:35 06/12/24 05:35 Labs: Laboratory Results - last 24 hr 06/11/24 14:06: WBC 19.1 H, RBC 3.94 L, Hgb 11.6 L, Hct 34.8 L, MCV 88.3, MCH 29.4, MCHC 33.3, RDW Std Deviation 42.0, RDW Coeff of Job 13.0, Plt Count 316, MPV 10.3, Sodium 136, Potassium 4.6, Chloride 104, Carbon Dioxide 19.3 L, Anion Gap 13, BUN 21 H, Creatinine 1.48 H, Estim Creat Clear Calc 54.69, Est GFR (MDRD) Non-Af 52 L, BUN/Creatinine Ratio 14.1, Glucose 170 H, Calcium 9.5 06/11/24 20:23: WBC 20.3 H, RBC 3.40 L, Hgb 10.1 L, Hct 30.6 L, MCV 90.0, MCH 29.7, MCHC 33.0, RDW Std Deviation 42.7, RDW Coeff of Job 13.1, Plt Count 326, MPV 9.8, Immature Gran % (Auto) 0.700, Neut % (Auto) 90.0 H, Lymph % (Auto) 3.6 L, [place] % (Auto) 5.5, Eos % (Auto) 0.0, Baso % (Auto) 0.2, Absolute Neuts (auto) 18.3 H, Absolute Lymphs (auto) 0.74 L, Nucleated RBC % 0, Sodium 137, Potassium 5.5 H, Chloride 103, Carbon Dioxide 19.5 L, Anion Gap 15, BUN 24 H, Creatinine 1.90 H, Estim Creat Clear Calc 42.60 L, Est GFR (MDRD) Non-Af 38 L, BUN/Creatinine Ratio 12.4, Glucose 204 H, Calcium 9.0 06/12/24 05:35: WBC 15.7 H, RBC 3.02 L, Hgb 8.9 L, Hct 26.9 L, MCV 89.1, MCH 29.5, MCHC 33.1, RDW Std Deviation 42.5, RDW Coeff of Job 13.1, Plt Count 274, MPV 10.1, Sodium 137, Potassium 5.1, Chloride 105, Carbon Dioxide 21.5, Anion Gap 10, BUN 27 H, Creatinine 1.97 H, Estim Creat Clear Calc 41.09 L, Est GFR (MDRD) Non-Af 37 L, BUN/Creatinine Ratio 13.5, Glucose 169 H, Calcium 8.9 Radiography Diagnostic Testing: Radiology Impression KUB X-Ray 06/11/24 07:14 IMPRESSION: 2 left-sided renal calculi, each measuring 5-6 mm. Interval removal of the left ureteral stent. Nonobstructive bowel gas pattern. Mild degenerative changes of the spine and hips. Reading Location: [facility] Abdomen/Pelvis CT 06/11/24 11:57 IMPRESSION: 1. Status post left double-J ureteral stent placement with left perirenal and subcapsular hematoma. Interventional radiology consultation is recommended. 2. Punctate bilateral renal calculi. 3. Diffuse hepatic steatosis. Dr. Noyola discussed findings with Dr. Sevilla via telephone at 12:42 pm on 06/11/24. Reading Location: [id number]
[2024-06-12] MEDS: Ceftriaxone 1 GM/50 ML BAG IV (09:35)
[2024-06-12] MEDS: Phenazopyridine 95 MG Tablet PO ×2 (09:36→20:42)
[2024-06-12] MEDS: Acetaminophen/Codeine #3 Tablet PO ×3 (10:00→16:21)
[2024-06-12] MEDS: 0.45% Normal Saline 1,000 ML 100 ML IV ×2 (12:01→22:30)
[2024-06-12] MEDS: Polyethylene Glycol 3350 17 GM PACKET PO (14:54)
--- NOTE | 2024-06-12 15:53 | PCM.PN.HOSP ---
Reason for Visit Reason for Visit: Diagnoses Calculus of kidney (06/12/24) Other injury of unspecified body region, initial encounter (06/12/24) Objective Data Objective Data Vital Signs: Vital Signs Temp Pulse Resp BP Pulse Ox O2 Del Method O2 Flow Rate 98.0 F 96 16 158/92 H 94 Room Air 2 06/12/24 14:14 06/12/24 14:14 06/12/24 14:14 06/12/24 14:14 06/12/24 14:14 06/12/24 14:14 06/11/24 23:40 Oxygen Flow Rate (L/min) 2 Oxygen Delivery Method Room Air Weight: 207 lb 14.334 oz Body Mass Index (BMI) 31.6 Intake & Output: Intake and Output for Last 24 Hours 06/10/24 06/11/24 06/12/24 23:59 23:59 23:59 Intake Total 2224.5 / 2524.5 2685.42 / 2685.42 Output Total 50 / 150 775 / 775 Balance 2174.5 / 2374.5 1910.42 / 1910.42 Lab / Micro Data 06/12/24 05:35 06/12/24 05:35 Labs: Laboratory Results - last 24 hr 06/11/24 20:23: WBC 20.3 H, RBC 3.40 L, Hgb 10.1 L, Hct 30.6 L, MCV 90.0, MCH 29.7, MCHC 33.0, RDW Std Deviation 42.7, RDW Coeff of Job 13.1, Plt Count 326, MPV 9.8, Immature Gran % (Auto) 0.700, Neut % (Auto) 90.0 H, Lymph % (Auto) 3.6 L, [place] % (Auto) 5.5, Eos % (Auto) 0.0, Baso % (Auto) 0.2, Absolute Neuts (auto) 18.3 H, Absolute Lymphs (auto) 0.74 L, Nucleated RBC % 0, Sodium 137, Potassium 5.5 H, Chloride 103, Carbon Dioxide 19.5 L, Anion Gap 15, BUN 24 H, Creatinine 1.90 H, Estim Creat Clear Calc 42.60 L, Est GFR (MDRD) Non-Af 38 L, BUN/Creatinine Ratio 12.4, Glucose 204 H, Calcium 9.0 06/12/24 05:35: WBC 15.7 H, RBC 3.02 L, Hgb 8.9 L, Hct 26.9 L, MCV 89.1, MCH 29.5, MCHC 33.1, RDW Std Deviation 42.5, RDW Coeff of Job 13.1, Plt Count 274, MPV 10.1, Sodium 137, Potassium 5.1, Chloride 105, Carbon Dioxide 21.5, Anion Gap 10, BUN 27 H, Creatinine 1.97 H, Estim Creat Clear Calc 41.09 L, Est GFR (MDRD) Non-Af 37 L, BUN/Creatinine Ratio 13.5, Glucose 169 H, Calcium 8.9 Radiography Diagnostic Testing: Radiology Impression KUB X-Ray 06/11/24 07:14 IMPRESSION: 2 left-sided renal calculi, each measuring 5-6 mm. Interval removal of the left ureteral stent. Nonobstructive bowel gas pattern. Mild degenerative changes of the spine and hips. Reading Location: [facility] Physical Exam Narrative Seen and examined Patient is awake and alert sitting in the chair. He did not had urine output after surgery until IV bolus was started. After that he had 300 mL in the morning.. Total 775 mL. Physical exam: General: Alert awake oriented x 3 HEENT: Atraumatic, PERRLA, EOMI, Normocephalic Oral: Oral mucosa dry. Neck: Supple, No JVD, Negative Carotid Bruits Chest wall/Lungs: Air entry diminished in bilateral lung bases. No crepitation/rhonchi Cardiovascular: Regular rate, Regular Rhythm, Normal S1, Normal S2, No M/G/R Abdomen: Bowel Sounds Present, Soft,Non-Distended : Urine mostly cleared up. Slight tinge of blood/pinkish. Mild tenderness over left renal angle and left upper quadrant. No suprapubic tenderness. Extremities: No edema, Capillary Refill Less than 3 Seconds Skin: No rashes, No breakdown Musculoskeletal: No Tenderness to Palpation of Joints or Extremities Neurological: Cranial nerves II-XII grossly intact, DTR 2+/4. No acute focal neurological deficit. Psych/Mental Status: Flat affect. Assessment & Plan Assessment/Plan (1) Hematoma: (2) Kidney stones: PLAN: Plan 68-year-old gentleman being admitted with left renal angle pain with radiation to flank and left upper quadrant after lithotripsy and stenting of left kidney stone 1. Small subcapsular hematoma around left kidney: Hematoma is contained. Patient is being admitted by urologist Dr. Sevilla. Hospitalist consulted for overnight observation and management. Pain controlled. Does not need active interventions and expected to resolve itself. H&H 11.6/34.8%. Mild leukocytosis 19.1. Platelet count 316K. 06/12: CT abdomen shows left perirenal/subcapsular hematoma. Discussed with Dr. Sevilla. Does not need active intervention and expected to reabs 2. Left kidney stone status post lithotripsy and stenting with severe pain from left flank to LUQ: Patient is not a Seth catheter. Bladder scan shows less than 100 mL. Pain control. 06/12:KUB showed left-sided leukoplakia measuring about 5 to 6 mm. Interval removal of left ureteral stent 3 HELADIO with abnormal UA: UA shows LE 100, RBC 10-25 cells, WBC 5-10 cells, bacteria 1+. Urine culture pending. Since patient had urologic procedure with cystoscopy therefore empirically started on IV ceftriaxone yesterday. Patient also has leukocytosis, 20.3 thousand and improving. Oliguria yesterday night 03/13. It was less than 100 mL and then urine output picked up after bolus. 775 mL documented after midnight. Continue IV fluid, rate decreased. Pain control. 4 acute anemia probably due to acute blood loss/lithotripsy from hematuria: Patient hemoglobin dropped from baseline 11 to 12 g% to 8.9 g%. Monitor CBC. No indication for transfusion. 5. Patient history of chronic migraine headache but currently does not complain of headache. 6. DVT prophylaxis: Pharmacological prophylaxis contraindicated. Bilateral SCDs Clinical Impression(s) from Imaging Studies KUB X-Ray 06/11/24 07:14 IMPRESSION: 2 left-sided renal calculi, each measuring 5-6 mm. Interval removal of the left ureteral stent. Nonobstructive bowel gas pattern. Mild degenerative changes of the spine and hips. Abdomen/Pelvis CT 06/11/24 11:57 IMPRESSION: 1. Status post left double-J ureteral stent placement with left perirenal and subcapsular hematoma. Interventional radiology consultation is recommended. 2. Punctate bilateral renal calculi. 3. Diffuse hepatic steatosis. Dr. Noyola discussed findings with Dr. Sevilla via telephone at 12:42 pm on 06/11/24. Reading Location: [id number] Laboratory Results 06/11/24 14:06: WBC 19.1 H, RBC 3.94 L, Hgb 11.6 L, Hct 34.8 L, MCV 88.3, MCH 29.4, MCHC 33.3, RDW Std Deviation 42.0, RDW Coeff of Job 13.0, Plt Count 316, MPV 10.3, Sodium 136, Potassium 4.6, Chloride 104, Carbon Dioxide 19.3 L, Anion Gap 13, BUN 21 H, Creatinine 1.48 H, Estim Creat Clear Calc 54.69, Est GFR (MDRD) Non-Af 52 L, BUN/Creatinine Ratio 14.1, Glucose 170 H, Calcium 9.5 Charges/Coding Visit Charges Inpatient E&M: 49917 Subs Hosp L2
[2024-06-12 15:56] LABS: Color, Urine Brown (Yellow); Glucose, Dipstick Normal (Normal); Ketone-Dipstick 5 mg/dl (Negative); Leukocyte Esterase-Dipstick 500 /ul (Negative); Mucous, Urine 0 SEEN /hpf (<or=2+); Nitrite-Dipstick Positive (Negative); Occult Blood-Urine 250 /ul (Negative); Protein-Dipstick 100 mg/dl (Negative); Specific Gravity, Urine 1.025 (1.002-1.030); Squamous Epithelial Cells - UA 0 SEEN /hpf (0-5); Urine Bilirubin Dipstick Negative (Negative); Urine Clarity Cloudy (Clear); Urine Urobilinogen Normal (Normal)
[2024-06-12 16:17] LABS: Red Blood Cells-Urine > 100 SEEN /hpf (0-5)
[2024-06-12 16:18] LABS: Amorphous Sediment 2+; Bacteria 2+ /hpf (None Seen); White Blood Cells 25-50 SEEN /hpf (0-5)
[2024-06-12] MEDS: 0.9% Saline Lock 10 ML Syringe IV ×2 (16:24→20:41)
[2024-06-12] MEDS: Metoclopramide 10 MG/2 ML Vial IV (16:24)
[2024-06-12] MEDS: Bisacodyl 10 MG Suppository RC (17:10)
[2024-06-12 18:02] LABS: Protein, Urine (Random) 40.2 mg/dL (0.0-12.0); Protein:Creat Ratio 429 mg/g CRE (0-200); Urine Chloride 48 mmol/L (Not Establ.); Urine Sodium 53 mmol/L (Not Establ.)
[2024-06-12] MEDS: Mag Hydrox/Al Hydrox/Simeth 30 ML UDC PO (20:41)
[2024-06-12 22:45] LABS: Osmolality, Urine 395 mOsm/KG
[2024-06-13] VITALS (7 sets, daily range): BP systolic 139–157; BP diastolic 73–87; PULSE 88–102; RESP 16–20; TEMP 36.5–36.9; O2SAT 92–97
[2024-06-13] MEDS: Phenazopyridine 95 MG Tablet PO (05:55)
[2024-06-13] MEDS: Acetaminophen 325 MG Tablet 650 MG PO (05:58)
[2024-06-13] MEDS: 0.9% Saline Lock 10 ML Syringe IV ×2 (06:00→12:44)
[2024-06-13] MEDS: Ondansetron 4 MG/2 ML Vial IV (06:00)
[2024-06-13 07:32] LABS: Hematocrit 20.6 % (40-54); Hemoglobin 6.9 g/dL (13.0-16.5); Mean Corp Hgb Conc 33.5 g/dL (32-36); Mean Corpuscular Hgb 29.7 pg (27.0-32.0); Mean Corpuscular Volume 88.8 fL (80-94); Mean Platelet Vol. 9.9 fl (6.2-12.0); Platelet Count 216 K/mm3 (150-450); RBC Distribution Width CV 13.3 % (11.6-14.6); RBC Distribution Width SD 43.3 fl (35.1-43.9); Red Blood Count 2.32 M/mm3 (4.6-6.2); White Blood Count 12.9 K/mm3 (4.4-11.0)
[2024-06-13 07:59] LABS: Anion Gap 10 (5-15); BUN 22 mg/dL (4-19); BUN/Creat Ratio 12.2 RATIO (10-20); Calcium,Total 9.1 mg/dL (7.6-11.0); Carbon Dioxide 21.5 mmol/L (21.0-32.0); Chloride 106 mmol/L (98-108); Creatinine, Serum 1.79 mg/dL (0.70-1.20); EST Glomerular Filtration Rate 41 (>60); Estimated Creatinine Clearance 45.22 ml/min (50-250); Glucose 120 mg/dL (70-99); Potassium 4.5 mmol/L (3.3-5.1); Sodium Level 138 mmol/L (133-145)
[2024-06-13 11:01] LABS: Hematocrit 21.7 % (40-54); Hemoglobin 7.3 g/dL (13.0-16.5)
--- NOTE | 2024-06-13 11:06 | NURSING ---
PT AND FAMILY UPDATED AT DR. ROSE'S REQUEST TO UPDATE THEM [facility] HAS ACCEPTED HIM BUT DOES NOT HAVE A BED AT THIS TIME. THEY WERE UPDATED ON BLOOD ORDERED. THEY VERBALIZED HAD NO FURTHER QUESTIONS AT THIS TIME. PRIMARY RN ALSO UPDATED.
[2024-06-13] MEDS: Ceftriaxone 1 GM/50 ML BAG IV (11:33)
[2024-06-13] MEDS: Docusate Sodium 100 MG Capsule 200 MG PO (11:36)
[2024-06-13] MEDS: Polyethylene Glycol 3350 17 GM PACKET PO (11:37)
[2024-06-13] MEDS: Bisacodyl 10 MG Suppository RC (11:42)
--- NOTE | 2024-06-13 14:09 | PHA.DC.MR.R ---
Pharmacy [place] Med Reconciliation Pharmacy Service has performed discharge medication reconciliation for this patient. The patient's discharge medication list was reviewed for discrepancies and discrepancies were resolved. Medications at Discharge Home Medications ciprofloxacin HCl 500 mg tablet (Cipro) 500 mg PO BID #14 tabs 06/11/24 oxycodone 5 mg tablet 5 mg PO Q6H PRN pain 7 days #10 tabs 06/11/24 phenazopyridine 100 mg tablet (Pyridium) 100 mg PO TID #20 tabs 06/11/24 tamsulosin 0.4 mg capsule (Flomax) 0.4 mg PO DAILY #10 caps 06/11/24
--- NOTE | 2024-06-13 14:15 | PCA ---
bed assignment recieved for pt at [facility], bed 5104 , accepting physician urology.
--- NOTE | 2024-06-13 15:17 | PCM.DC.SUM ---
Providers Date of Admission: 06/12/24 Date of Discharge: 06/13/24 Primary Care Physician: Dr. Alex Chowdhury MD Consultations 06/11/24 12:13 Consult: Hospitalist Routine Consulting Provider: Dereck Mariscal Reason for Consult: pain control EMERGENT Consult: No MD Notified: Yes Date Notified: 06/11/24 Time Notified: 12:13 Method of Notification: Text Reason For Visit: ESWL,Cystocopy Insertion Stent Diagnosis Discharge Diagnosis (1) Hematoma: Status: Acute Code(s): T14.8XXA - Other injury of unspecified body region, initial encounter (2) Kidney stones: Status: Acute Code(s): N20.0 - Calculus of kidney Plan 68-year-old gentleman being admitted with left renal angle pain with radiation to flank and left upper quadrant after lithotripsy and stenting of left kidney stone. Patient was admitted after elective surgery by Dr. Sevilla but since he is out of town therefore patient is being discharged and discharge summary is done on his behalf 1. Subcapsular hematoma around left kidney: Hematoma is contained. Patient is being admitted by urologist Dr. Sevilla. Hospitalist consulted for overnight observation and management. Pain controlled. Does not need active interventions and expected to resolve itself. H&H 11.6/34.8%. Mild leukocytosis 19.1. Platelet count 316K. 06/12: CT abdomen shows left perirenal/subcapsular hematoma. Discussed with Dr. Sevilla. Does not need active intervention and expected to reabs 06/13: CT abdomen shows subcapsular hematoma size 7.6 x 4.3 cm which might be a risk factor for developing pseudoaneurysm or intravascular complication. Hemoglobin dropped from baseline 11.6 to 7.3 g%. This was discussed with the urologist Dr. Sevilla who is out of town and 2 units of PRBC ordered. [address] Sevilla opinion is that he needs angiogram by IR and possible intervention to stop bleeding therefore requested transfer to tertiary care. I called [facility] and the patient is accepted there by , the urologist. This was communicated to the patient and his present in the room. Patient will be transferred to [facility] In about 1 hour. BP 150/87, heart rate 102/min. No hypoxia or tachypnea. Continue IV ceftriaxone. Urine culture pending. 2. Left kidney stone status post lithotripsy and stenting with severe pain from left flank to LUQ: Patient is not a Seth catheter. Bladder scan shows less than 100 mL. Pain control. 06/12:KUB showed left-sided leukoplakia measuring about 5 to 6 mm. Interval removal of left ureteral stent 06/13: Patient abdominal pain is better. 3. HELADIO with abnormal UA: UA shows LE 100, RBC 10-25 cells, WBC 5-10 cells, bacteria 1+. Urine culture pending. Since patient had urologic procedure with cystoscopy therefore empirically started on IV ceftriaxone yesterday. Patient also has leukocytosis, 20.3 thousand and improving. Oliguria yesterday night 03/13. It was less than 100 mL and then urine output picked up after bolus. 775 mL documented after midnight. Continue IV fluid, rate decreased. Pain control. 06/13: Creatinine shows improvement 1.79. Patient started making urine about 300 mL every 3-4 hours. HELADIO getting better. 4. Acute anemia probably due to acute blood loss/lithotripsy from hematuria: Patient hemoglobin dropped from baseline 11 to 12 g% to 8.9 g%. Monitor CBC. No indication for transfusion. 06/13: As mentioned above. Acute severe anemia due to blood loss/hematuria 5. Patient history of chronic migraine headache but currently does not complain of headache. 6. DVT prophylaxis: Pharmacological prophylaxis contraindicated. Bilateral SCDs Patient is being transferred to [facility]. Clinical Impression(s) from Imaging Studies KUB X-Ray 06/11/24 07:14 IMPRESSION: 2 left-sided renal calculi, each measuring 5-6 mm. Interval removal of the left ureteral stent. Nonobstructive bowel gas pattern. Mild degenerative changes of the spine and hips. Abdomen/Pelvis CT 06/11/24 11:57 IMPRESSION: 1. Status post left double-J ureteral stent placement with left perirenal and subcapsular hematoma. Interventional radiology consultation is recommended. 2. Punctate bilateral renal calculi. 3. Diffuse hepatic steatosis. Dr. Noyola discussed findings with Dr. Sevilla via telephone at 12:42 pm on 06/11/24. Reading Location: [id number] Laboratory Results 06/11/24 14:06: WBC 19.1 H, RBC 3.94 L, Hgb 11.6 L, Hct 34.8 L, MCV 88.3, MCH 29.4, MCHC 33.3, RDW Std Deviation 42.0, RDW Coeff of Job 13.0, Plt Count 316, MPV 10.3, Sodium 136, Potassium 4.6, Chloride 104, Carbon Dioxide 19.3 L, Anion Gap 13, BUN 21 H, Creatinine 1.48 H, Estim Creat Clear Calc 54.69, Est GFR (MDRD) Non-Af 52 L, BUN/Creatinine Ratio 14.1, Glucose 170 H, Calcium 9.5 Medications at Discharge Home Medications ciprofloxacin HCl 500 mg tablet (Cipro) 500 mg PO BID #14 tabs 06/11/24 oxycodone 5 mg tablet 5 mg PO Q6H PRN pain 7 days #10 tabs 06/11/24 phenazopyridine 100 mg tablet (Pyridium) 100 mg PO TID #20 tabs 06/11/24 tamsulosin 0.4 mg capsule (Flomax) 0.4 mg PO DAILY #10 caps 06/11/24 Physical Exam Narrative Seen and examined Patient is awake and alert sitting in the chair. Patient started making sufficient urine. It is Physical exam: General: Alert awake oriented x 3 HEENT: Atraumatic, PERRLA, EOMI, Normocephalic Oral: Oral mucosa dry. Neck: Supple, No JVD, Negative Carotid Bruits Chest wall/Lungs: Air entry diminished in bilateral lung bases. No crepitation/rhonchi Cardiovascular: Regular rate, Regular Rhythm, Normal S1, Normal S2, No M/G/R Abdomen: Bowel Sounds Present, Soft,Non-Distended : Dark concentrated urine. Does not look pinkish. Mild tenderness over left renal angle and left upper quadrant. No suprapubic tenderness. Extremities: No edema, Capillary Refill Less than 3 Seconds Skin: No rashes, No breakdown Musculoskeletal: No Tenderness to Palpation of Joints or Extremities Neurological: Cranial nerves II-XII grossly intact, DTR 2+/4. No acute focal neurological deficit. Psych/Mental Status: Flat affect. Weight / BMI Weight Weight: 207 lb 14.334 oz Body Mass Index (BMI) 31.6 ABG / Lab / Microbiology Data 06/13/24 10:40 06/13/24 06:53 Laboratory: Laboratory Results - last 24 hr 06/11/24 23:30: Urine Color Brown, Urine Clarity Cloudy, Urine pH 5.0, Ur Specific Page 1.025, Urine Protein 100 H, Urine Glucose (UA) Normal, Urine Ketones 5 H, Urine Occult Blood 250 H, Urine Nitrite Positive H, Urine Bilirubin Negative, Urine Urobilinogen Normal, Ur Leukocyte Esterase 500 H, Urine RBC > 100 SEEN, Urine WBC 25-50 SEEN, Ur Squamous Epith Cells 0 SEEN, Amorphous Sediment 2+, Urine Bacteria 2+, Urine Mucus 0 SEEN 06/12/24 : Urine Osmolality 395, U Random Total Protein 40.2 H, Ur Random Sodium 53, Urine Creatinine 93.60, Protein/Creatinin Ratio 429 H, Urine Potassium 25.0, Urine Chloride 48 06/13/24 06:53: WBC 12.9 H, RBC 2.32 L, Hgb 6.9 L, Hct 20.6 L, MCV 88.8, MCH 29.7, MCHC 33.5, RDW Std Deviation 43.3, RDW Coeff of Job 13.3, Plt Count 216, MPV 9.9, Sodium 138, Potassium 4.5, Chloride 106, Carbon Dioxide 21.5, Anion Gap 10, BUN 22 H, Creatinine 1.79 H, Estim Creat Clear Calc 45.22 L, Est GFR (MDRD) Non-Af 41 L, BUN/Creatinine Ratio 12.2, Glucose 120 H, Calcium 9.1 06/13/24 10:40: Hgb 7.3 L, Hct 21.7 L, Blood Type A POSITIVE, Antibody Screen NEGATIVE, Crossmatch See Detail 06/13/24 10:40: Crossmatch See Detail D/C Instructions Discharge Diet: No restrictions Call your doctor if you observe: Fever of 101 or Higher DC O2, CPAP, BIPAP Needs Home O2 Discharge instructions: No Please Follow Up With: Dimitri Sevilla MD When: Call [phone] for an appointment Meaningful Use Info Meaningful Use Meaningful Use Diagnoses (Choose all that apply): None applicable Ischemic Stroke Statin Dosing Therapy Reference: STATIN DOSE THERAPY REFERENCE: * Patients > 75 years receive moderate or high dose statin therapy. * Patients 75 years or YOUNGER should receive HIGH intensity statin dose unless contraindicated. You will be required to document reason for non-treatment if statin daily dose does not meet guidelines. HIGH DOSE STATIN THERAPY DAILY Atorvastatin > than or = to 40 mg Rosuvastatin > than or = to 20 mg Amlodipine + Atorvastatin > than or = to 2.5/40 mg Ezetimibe + Simvastatin 10/80 mg Simvastatin 80mg Discharge Plan Admission Admit Date/Time: 06/12/24 11:54 Primary Reason for Your Visit: left ESWL Attending Provider: Dereck Mariscal Primary Care Provider: Alex Chowdhury Consulting Providers: Dereck Mariscal Discharge Orders/Prescriptions Prescriptions: New tamsulosin [Flomax] 0.4 mg capsule 0.4 mg PO DAILY Qty: 10 0RF phenazopyridine [Pyridium] 100 mg tablet 100 mg PO TID Qty: 20 0RF oxycodone 5 mg tablet 5 mg PO Q6H PRN (Reason: pain) 7 Days Qty: 10 0RF ciprofloxacin HCl [Cipro] 500 mg tablet 500 mg PO BID Qty: 14 0RF Referrals / Follow Up: Dimitri Sevilla MD [Med Staff - Active Staff] - Alex Chowdhury MD [Primary Care Provider] - Disposition Discharge Orders: Discharge Patient (Routine); Ordered 06/13/24 Ordered By: Dr. Dereck Mariscla Charges/Coding Visit Charges Inpatient E&M: 01142 Disch Hosp >30min
== END 2024-06-13 16:05 | disposition other institution (70) | DRG 982 ==
LOC: SDC 17:36 → MS3 17:36
PROVIDERS: Admitting Provider Urology; PCP Family Medicine; Referring Provider Urology; Visit Provider Internal Medicine
PROC: (CPT 50590; principal; 2024-06-11 08:55)
DX: N99.840 Postprocedural hematoma of a genitourinary system organ or structure following a genitourinary system procedure (principal); D62 Acute posthemorrhagic anemia; N17.9 Acute kidney failure, unspecified; K76.0 Fatty (change of) liver, not elsewhere classified; E86.0 Dehydration; N20.0 Calculus of kidney; R00.0 Tachycardia, unspecified; Z79.891 Long term (current) use of opiate analgesic; Y83.8 Other surgical procedures as the cause of abnormal reaction of the patient, or of later complication, without mention of misadventure at the time of the procedure; N28.89 Other specified disorders of kidney and ureter
CPT/HCPCS: 36415; 74018; 74176; 80048; 81001; 82436; 82570; 83935; 84133; 84156; 84300; 85014; 85018; 85025; 85027; 86850; 86900; 86901; 87086; 94668; P9016; A4216; C1769; C2617; J2405

== ENCOUNTER 2024-06-17 09:56 | Emergency (ER) | payer MEDICARE, OTHER, SELFPAY ==
[2024-06-17] VITALS (16 sets, daily range): BP systolic 138–171; BP diastolic 75–92; PULSE 87–118; RESP 14–24; TEMP 35.7; O2SAT 95–99; BMI 31.7
--- NOTE | 2024-06-17 10:53 | CT_ITS ---
PROCEDURE: CTA CHEST W/WO CONTRAST 06/17/2024 REASON FOR EXAM: PULMONARY EMBOLISM TECHNIQUE: CTA axial imaging of the chest with intravenous contrast. Multiplanar and multisequence images were obtained. 3D, 3D post processing, 3D reconstructions, Maximum intensity projection (MIPs) Volume rendering and Shaded surface rendering was provided. PATIENT PREPARATION: Per protocol CONTRAST: Not reported One or more dose reduction techniques were used (e.g., Automated exposure control, adjustment of the mA and/or kV according to patient size, use of iterative reconstruction technique). RADIATION DOSE SUMMARY: Not reported COMPARISON: None FINDINGS: Hardware: None Lymph nodes: Unremarkable Heart: Unremarkable RV/LV Diameter Ratio: 0.8 Thoracic Aorta: Unremarkable Pulmonary Vessels: Pulmonary artery Hounsfield units = 280. There is partly occlusive pulmonary embolus visible in the left lower lobe branch, image 130/238. There is partly occlusive embolus in the right middle lobe branch with occlusive components, image 121/238. There is partly occlusive pulmonary embolus visible in the right lower lobe branch, image 116/238. Lungs and Airways: There is a 1 cm right pleural effusion. There is a 2.5 cm left pleural effusion. There is segmental consolidation at the medial left lung base. There is subsegmental consolidation in the medial right lung base. These lesions may represent developing pulmonary infarcts. There is a 2.8 x 2.2 cm solid peripheral density in the left lingular segment, image 73/278. There is a 4 cm x 4 cm solid nodule at the lower pole of the left thyroid lobe which extends into the upper mediastinum. Upper Abdomen: There is a complex mass in the upper pole of the left kidney and left adrenal measuring at least 7.8 cm, incompletely visualized. There is a 2 cm low-density lesion in the right hepatic lobe, image 56/238. Bones: Unremarkable CT/CTA Chest W/WO Contrast IMPRESSION: There is partly occlusive pulmonary embolus visible in the left lower lobe bran ch, image 130/238. There is partly occlusive embolus in the right middle lobe branch with occlusive components, image 121/23 8. There is partly occlusive pulmonary embolus visible in the right lower lobe branch, image 116/238. There is a 1 cm right pleural effusion. There is a 2.5 cm left pleural effusion . There is segmental consolidation at the medial left lung base. There is subsegm ental consolidation in the medial right lung base. These lesions may represent developing pulmonary infarcts. There is a 2.8 x 2.2 cm solid peripheral density in the left lingular segment, image 73/278. PET scan correlation is indicated. There is a 4 cm x 4 cm solid nodule at the lower pole of the left thyroid lobe which extends into the upper mediastinum. Correlation with thyroid ultrasound is recommended There is a complex mass in the upper pole of the left kidney and left adrenal m easuring at least 7.8 cm, incompletely visualized. Further evaluation is indicated. There is a 2 cm low-density lesion in the right hepatic lobe, image 56/238. CT with three-phase contrast enhancement, hemangioma protocol could be helpful for further characterization. Critical results were discussed with Dr. Bowen by Dr. Bradshaw at the time o f dictation. Reading [facility]
--- NOTE | 2024-06-17 10:53 | CT_ITS ---
PROCEDURE: ABDOMEN/PELVIS W IV CONT ONLY (procedure code [id number]), 06/17/2024 REASON FOR EXAM: (L) RENAL HEMATOMA TECHNIQUE: CT abdomen and pelvis was performed with IV contrast. Multiplanar reformats were generated. CONTRAST: Isovue-300 VOLUME: 96mL RADIATION DOSE SUMMARY: CTDlvol: 13.30+ 21.51+ 22.78 mGy DLP: 1972.62 mGycm Note that these figures represent a total for the CTA chest and CT abdomen and pelvis. One or more dose reduction techniques were used (e.g., Automated exposure control, adjustment of the mA and/or kV according to patient size, use of iterative reconstruction technique). COMPARISON: 06/11/2024 FINDINGS: Lung bases: Refer to concurrently performed and separately reported CTA chest for intrathoracic findings. Liver: Small cysts and additional hypodensities too small to characterize likely to reflect additional cysts/hemangiomas in the absence of known malignancy. Spleen: Unremarkable. Gallbladder: Unremarkable. Pancreas: Atrophic. Adrenals: LEFT adrenal partially obscured by adjacent retroperitoneal hemorrhage. No definite nodule or mass.. Kidneys: Redemonstrated LEFT perinephric hematoma with both subcapsular components and if components extending into the predominantly posterior perirenal and pararenal spaces. Although irregular and difficult to measure, the largest confluent component measures 10.5 x 6.0 x 13.4 cm, probably increased from 10.1 x 5.2 x 8.0 cm previously, measured similarly. Mass-effect on the LEFT kidney which is displaced anteriorly. This extends along retroperitoneal tissue planes as before, with increasing stranding and ill-defined fluid, presumably extending inferiorly along the LEFT pelvic sidewall reactive and reflecting extension of the hematoma inferiorly. Redemonstrated LEFT nephroureteral stent. No hydronephrosis. Small RIGHT renal cyst. Similar nonobstructing intrarenal calculi, larger on the LEFT, better seen previously in the absence of IV contrast. Bowel: Diverticulosis.. Normal caliber appendix. Lymph nodes: RIGHT para-aortic nodes up to 12 mm short axis, grossly similar.. Vasculature: Mild/moderate atherosclerosis. Peritoneum: As above. Stranding extends along the LEFT pelvic sidewall and into the presacral region, increased from prior, presumably reactive to the above. Bladder: As above, otherwise underdistended and suboptimally evaluated. Mild mass-effect by the enlarged prostate. Reproductive Organs: Prostatomegaly.. Body Wall: Nonspecific mild subcutaneous stranding in the [id number]-RIGHT flanks may in part be postprocedural.. Bones: Multilevel spondylosis.. CT/Abdomen/Pelvis W IV Cont ONLY IMPRESSION: 1. Enlarging large LEFT predominantly subcapsular and perirenal/pararenal hemat raeann with mass-effect on the LEFT kidney as detailed, now measuring up to 13.4 cm craniocaudal. 2. Mild retroperitoneal lymphadenopathy, nonspecific and potentially reactive i n the absence of known malignancy. Correlate with medical history and follow-up as indicated. 3. Refer to concurrently performed and separately reported CTA chest for intrat horacic findings. 4. Additional description as above. Reading Location: [id number]
--- NOTE | 2024-06-17 10:54 | EKG12_ITS ---
Test Reason : WEAKNESS Blood Pressure : */* mmHG Vent. Rate : 93 BPM Atrial Rate : 93 BPM P-R Int : 148 ms QRS Dur : 94 ms QT Int : 352 ms P-R-T Axes : 16 -29 -8 degrees QTcB Int : 437 ms Normal sinus rhythm Minimal voltage criteria for LVH, may be normal variant ( R in aVL ) Borderline ECG Confirmed by HEVER JAMIL, ANCA ([id number]), graphics editor GILDARDO ROSARIO ([id number]) on 06/18/2024 1:31:08 PM Referred By: Confirmed By: ANCA KATHLEEN MD
--- NOTE | 2024-06-17 11:07 | EDS_ITS ---
HPI History of Present Illness Chief Complaint: Weakness Informant: patient and spouse/S.O. Narrative Narrative: 68-year-old male presenting to the emergency room chief complaint of flank pain. Patient recently underwent left ureteral stent placement and lithotripsy with Dr. Sevilla. He developed a renal hematoma with anemia required blood transfusion. He was transferred to [facility] Where his hemoglobin remained stable at 8.3 and he was discharged home. He states that whenever he takes it deep breath he gets pain in the flank. He notes some lower abdominal pain which he relates to the stent. He notes his urine has been pink-tinged. He has had no syncope. He does note that yesterday at 1 point he went to stand up and noted that he got very pale and he was weak. He states that is only happened 1 time. He denies any chest pain. He does note fatigue when he goes to exert himself. He does not necessarily feel short of breath but more of an inability to take a deep breath because of the pain. Patient notes that his spoke with Dr. Sevilla who advised to come into emergency. He has been treating his pain at home using Tylenol and Tylenol with codeine. He does note some constipation. has noted that his heart rate has been higher than normal around the 120-135 cyndi. [facility] Medical History Wears glasses Cancer Migraine headache Loss of consciousness Gastric reflux Non-smoker Hx of pilonidal cyst Kidney stones Home Medications ?Medication ?Instructions ?Recorded ?Last Taken ?Type ciprofloxacin HCl 500 mg tablet 500 mg PO BID #14 tabs 06/11/24 06/17/24 Rx (Cipro) acetaminophen 500 mg tablet 1,000 mg PO Q6H PRN pain 0 06/17/24 06/17/24 History ibuprofen 200 mg tablet (Addaprin) 400 mg PO DAILY PRN fever or pain 06/17/24 06/16/24 History Allergy/AdvReac Type Severity Reaction Status Date / Time No Known Allergies Allergy Verified 06/17/24 09:57 Surgical History Hx of skin graft Hx of cystoscopy History of ankle surgery Social History Smoking Status: Never smoker ROS ROS ED Constitutional Constitutional ED: Denies chills or weight loss Eyes Eyes: Denies change in vision or diplopia ENT ENT ED: Denies ear pain, rhinorrhea or sore throat Cardiovascular Cardiovascular: Denies chest pain, orthopnea, palpitations or racing heartbeat Respiratory/Chest Respiratory/Chest: Reports dyspnea; Denies cough or orthopnea Gastrointestinal Gastrointestinal: Reports abdominal pain, constipation and nausea; Denies diarrhea or vomiting Genitourinary Genitourinary ED: Denies dysuria, hematuria or urinary frequency Musculoskeletal Musculoskeletal: Reports back pain; Denies arthralgias or myalgias Integumentary Denies abscess or rash Neurologic Neurologic: Denies headache(s) or weakness Psychiatric Psychiatric: Denies anxiety, depression, suicidal ideation or suicidal thoughts Endocrine Endocrinology: Denies polydipsia, polyphagia or polyuria Allergic/Immunologic Allergic/Immunologic ED: Denies mouth swelling, tongue swelling or urticaria EXAM Physical Exam Const Vital Signs: 06/17/24 09:56 06/17/24 10:07 06/17/24 10:56 Temperature 96.3 F L Temperature Source Temporal Pulse Rate 96 93 Respiratory Rate 14 Respiratory Effort Normal Respiratory Pattern Normal Blood Pressure 167/91 H 145/75 H Blood Pressure Mean 116 98 Pulse Ox 99 98 Oxygen Delivery Method Room Air Room Air 06/17/24 11:00 06/17/24 12:00 06/17/24 13:00 Temperature Temperature Source Pulse Rate 87 90 Respiratory Rate Respiratory Effort Respiratory Pattern Blood Pressure 145/75 H 138/77 H 144/88 H Blood Pressure Mean 98 97 106 Pulse Ox 98 98 Oxygen Delivery Method Room Air Room Air 06/17/24 14:00 06/17/24 15:00 06/17/24 16:00 Temperature Temperature Source Pulse Rate 95 90 102 H Respiratory Rate Respiratory Effort Respiratory Pattern Blood Pressure 150/88 H 147/89 H 143/92 H Blood Pressure Mean 108 108 109 Pulse Ox 96 97 97 Oxygen Delivery Method Room Air Room Air Room Air Positive well nourished and well developed General Appearance ED: well developed HEENT Reports normocephalic, head/scalp atraumatic and moist mucous membranes Eyes PERRL and EOMs intact bilaterally Neck no lymphadenopathy, supple and no JVD Resp normal respiratory effort and clear to auscultation bilaterally Cardio regular rate, regular rhythm and no murmurs GI normal to inspection, nondistended, normoactive bowel sounds and non-tender Palpation: soft Back/Spine normal ROM Back/Spine Narrative: Tender to palpation in the left CVA region. I do not appreciate ecchymosis. Extremity normal to inspection General Extremety ED: Negative for edema General Extremity: Negative for edema Neuro oriented x3 and CN's II-XII intact bilaterally Sensorium / Orientation: alert Motor Exam: strength 5/5 throughout Psych mental status grossly normal Mood & Affect: Negative for depressed or tearful Skin no rashes or lesions noted and no wounds MDM MDM MDM Narrative Medical decision making narrative: Differential diagnosis includes but not limited to renal hematoma retroperitoneal bleed pulmonary embolism pleural effusion pneumonia anemia req uiring transfusion acute kidney injury UTI kidney stone colitis diverticulitis EKG shows a normal sinus rhythm with a rate of 93. Troponin and BNP within normal limits white count 10.2 hemoglobin at 8.6 platelet count is 351. Creatinine 1.69 urinalysis with 10-25 red cells no overt infection. Troponin and BNP today are within normal limits. CT of the abdomen pelvis and a CTA of the chest was obtained and read by radiology and reviewed by myself. This is concerning for bilateral pulmonary embolisms with infarct as well as worsening hematoma of the left kidney region. At rest patient's heart rate is around 90 he is 97% on room air. I discussed the case with [facility] transfer line as I believe the patient would be best served transferring there. I am waiting to hear back from them regarding anticoagulation and acceptance. Patient is notably upset by the news of the CT findings. History & Record Review Discussion w/independent historian: Patient and Significant other Additional record(s) reviewed:: Prior inpatient record, Prior ED visit and Prior labs Lab Data Attestation: I reviewed the patient's lab results. Labs: Laboratory Results - last 24 hr 06/17/24 06/17/24 06/17/24 11:10 12:25 14:00 WBC 10.2 RBC 2.88 L Hgb 8.6 L Hct 25.6 L MCV 88.9 MCH 29.9 MCHC 33.6 RDW Std Deviation 43.0 RDW Coeff of Job 13.2 Plt Count 351 MPV 9.4 Immature Gran % (Auto) 0.700 Neut % (Auto) 73.1 H Lymph % (Auto) 10.6 L [place] % (Auto) 11.9 H Eos % (Auto) 3.1 Baso % (Auto) 0.6 Absolute Neuts (auto) 7.5 Absolute Lymphs (auto) 1.08 Nucleated RBC % 0 Sodium 136 Potassium 4.4 Chloride 102 Carbon Dioxide 22.4 Anion Gap 11 BUN 24 H Creatinine 1.69 H Estim Creat Clear Calc 47.97 L Est GFR (MDRD) Non-Af 44 L BUN/Creatinine Ratio 13.9 Glucose 98 Calcium 9.7 Troponin T High Sens 21 NT pro BNP II 120 Urine Color Yellow Urine Clarity Clear Urine pH 7.0 Ur Specific [place] 1.010 Urine Protein 30 H Urine Glucose (UA) Normal Urine Ketones Negative Urine Occult Blood 250 H Urine Nitrite Negative Urine Bilirubin Negative Urine Urobilinogen Normal Ur Leukocyte Esterase 25 H Urine RBC 10-25 SEEN Urine WBC 0-5 SEEN Ur Squamous Epith Cells 0 SEEN Urine Bacteria 0 SEEN Urine Mucus 0 SEEN Radiography Diagnostic Testing: Clinical Impression(s) from Imaging Studies Abdomen/Pelvis CT 06/17/24 10:53 IMPRESSION: 1. Enlarging large LEFT predominantly subcapsular and perirenal/pararenal hematoma with mass-effect on the LEFT kidney as detailed, now measuring up to 13.4 cm craniocaudal. 2. Mild retroperitoneal lymphadenopathy, nonspecific and potentially reactive in the absence of known malignancy. Correlate with medical history and follow-up as indicated. 3. Refer to concurrently performed and separately reported CTA chest for intrathoracic findings. 4. Additional description as above. Reading Location: [facility] Chest CTA 06/17/24 10:53 IMPRESSION: There is partly occlusive pulmonary embolus visible in the left lower lobe branch, image 130/238. There is partly occlusive embolus in the right middle lobe branch with occlusive components, image 121/238. There is partly occlusive pulmonary embolus visible in the right lower lobe branch, image 116/238. There is a 1 cm right pleural effusion. There is a 2.5 cm left pleural effusion. There is segmental consolidation at the medial left lung base. There is subsegmental consolidation in the medial right lung base. These lesions may represent developing pulmonary infarcts. There is a 2.8 x 2.2 cm solid peripheral density in the left lingular segment, image 73/278. PET scan correlation is indicated. There is a 4 cm x 4 cm solid nodule at the lower pole of the left thyroid lobe which extends into the upper mediastinum. Correlation with thyroid ultrasound is recommended There is a complex mass in the upper pole of the left kidney and left adrenal measuring at least 7.8 cm, incompletely visualized. Further evaluation is indicated. There is a 2 cm low-density lesion in the right hepatic lobe, image 56/238. CT with three-phase contrast enhancement, hemangioma protocol could be helpful for further characterization. Critical results were discussed with Dr. Bowen by Dr. Bradshaw at the time of dictation. Reading Location: [facility] EKG Initial EKG: Attestation: I personally reviewed and interpreted this EKG as follows: Comments: Normal sinus rhythm with a ventricular rate of 93 bpm Management Discussion w/another healthcare provider: [employer] (Dr Sevilla (Urology), [facility]) and Radiologist Discharge Plan Triage Chief Complaint: Weakness ED Provider: Jeramy Mcgowan Dx/Rx/DC Orders Clinical Impression: Renal hematoma, left, Embolism, pulmonary with infarction, Anemia Prescriptions: No Action ciprofloxacin HCl [Cipro] 500 mg tablet 500 mg PO BID Qty: 14 0RF acetaminophen 500 mg tablet 1,000 mg PO Q6H PRN (Reason: pain) ibuprofen [Addaprin] 200 mg tablet 400 mg PO DAILY PRN (Reason: fever or pain) Primary Care Provider: Cyndi Chowdhury Referrals: Cyndi Chowdhury MD [Primary Care Provider] - Print Language: Bermudian Disposition Disposition: Acute Care Hospital Discharge Location: [facility]
[2024-06-17 11:28] LABS: Absolute Lymphocyte Count 1.08 X10^3/uL (0.83-4.51); Absolute Neutrophil Count 7.5 X10^3/uL (2.0-7.7); Basophil# 0.06 X10^3/uL; Basophil% 0.6 % (0-1); Eosinophil# 0.32 X10^3/uL; Eosinophils% 3.1 % (0-5); Hematocrit 25.6 % (40-54); Hemoglobin 8.6 g/dL (13.0-16.5); Lymphocyte # 1.08 X10^3/ul (0.83-4.51); Lymphocyte % 10.6 % (19-41); Mean Corp Hgb Conc 33.6 g/dL (32-36); Mean Corpuscular Hgb 29.9 pg (27.0-32.0); Mean Corpuscular Volume 88.9 fL (80-94); Mean Platelet Vol. 9.4 fl (6.2-12.0); Monocyte# 1.21 X10^3/uL; Monocyte% 11.9 % (0-10); NRBC Flagged by Analyzer 0 % (0-5); Neutrophil # 7.46 X10^3/uL (2.7-7.7); Neutrophil % 73.1 % (47-70); Platelet Count 351 K/mm3 (150-450); RBC Distribution Width CV 13.2 % (11.6-14.6); Red Blood Count 2.88 M/mm3 (4.6-6.2); White Blood Count 10.2 K/mm3 (4.4-11.0)
[2024-06-17 11:53] LABS: Anion Gap 11 (5-15); BUN 24 mg/dL (4-19); BUN/Creat Ratio 13.9 RATIO (10-20); Calcium,Total 9.7 mg/dL (7.6-11.0); Carbon Dioxide 22.4 mmol/L (21.0-32.0); Chloride 102 mmol/L (98-108); Creatinine, Serum 1.69 mg/dL (0.70-1.20); EST Glomerular Filtration Rate 44 (>60); Estimated Creatinine Clearance 47.97 ml/min (50-250); Glucose 98 mg/dL (70-99); Potassium 4.4 mmol/L (3.3-5.1); Sodium Level 136 mmol/L (133-145)
[2024-06-17 12:34] LABS: Bacteria 0 SEEN /hpf (None Seen); Mucous, Urine 0 SEEN /hpf (<or=2+); Squamous Epithelial Cells - UA 0 SEEN /hpf (0-5)
[2024-06-17 12:39] LABS: Color, Urine Yellow (Yellow); Glucose, Dipstick Normal (Normal); Ketone-Dipstick Negative (Negative); Leukocyte Esterase-Dipstick 25 /ul (Negative); Nitrite-Dipstick Negative (Negative); Occult Blood-Urine 250 /ul (Negative); Protein-Dipstick 30 mg/dl (Negative); Urine Bilirubin Dipstick Negative (Negative); Urine Clarity Clear (Clear); Urine Urobilinogen Normal (Normal)
[2024-06-17 13:10] LABS: Red Blood Cells-Urine 10-25 SEEN /hpf (0-5); White Blood Cells 0-5 SEEN /hpf (0-5)
[2024-06-17 14:42] LABS: Pro- Brain NATRIURETIC PEPTIDE 120 pg/mL (<=900); Troponin T High Sensitivity 21 ng/L (<=22)
[2024-06-17] MEDS: Acetaminophen/Codeine #3 Tablet 1 TABLET PO (16:04)
[2024-06-17] MEDS: Acetaminophen 500 MG Tablet PO (16:04)
[2024-06-17 17:19] LABS: Troponin T High Sens 2 HR 17 ng/L (<=22)
--- NOTE | 2024-06-17 19:52 | ED.RN ---
Accepted 172.
[2024-06-17] MEDS: Morphine 4 MG/ML Syringe IV (22:16)
--- NOTE | 2024-06-17 22:16 | PCA ---
PT ACCEPTED AT [facility] [id number] [phone]
[2024-06-18] VITALS: BP 149/79; PULSE 106
[2024-06-18 01:00] VITALS: BP 155/74; PULSE 94; RESP 16; O2SAT 96
[2024-06-18 02:00] VITALS: BP 139/87; PULSE 102; RESP 20; O2SAT 95
[2024-06-18] MEDS: Morphine 4 MG/ML Syringe IV (02:34)
== END 2024-06-18 02:38 | disposition short-term general hospital (02) ==
PROVIDERS: Emergency Provider Emergency Medicine; PCP Family Medicine; Visit Provider Emergency Medicine
DX: N28.0 Ischemia and infarction of kidney (principal); E04.1 Nontoxic single thyroid nodule; R53.1 Weakness; N28.89 Other specified disorders of kidney and ureter; J90 Pleural effusion, not elsewhere classified; Z98.890 Other specified postprocedural states; R06.00 Dyspnea, unspecified; D64.9 Anemia, unspecified
CPT/HCPCS: 71275; 74177; 80048; 81001; 83880; 84484; 85025; 93005; 96374; 96376; 99285; Q9967; A4216